=== PATIENT | male | born 1945 | race Caucasian/White ===

== ENCOUNTER 2018-01-06 23:41 | Emergency (ER) | payer OTHER ==
[2018-01-07 00:23] VITALS: BP 175/98; PULSE 78; TEMP 97.8; BMI 28.2
--- NOTE | 2018-01-07 01:47 | PDOC ---
History of Present Illness <Magdiel Mills - Last Filed: 01/07/18 02:05> - General History Source: Patient Exam Limitations: No Limitations - History of Present Illness Initial Comments: 01/07/18 01:46 Patient is a 72 year old male with h/o carotid stents, HLD, hypothyroid, hypertension, cataracts, corneal implant, prostatectomy, prostate cancer, here with complaint of head injury and laceration to right forehead since [facility]. Patient states was sleeping in his chair and fell out on his head. States initially a little pain to the area but has been progressively worsening now 5/ 10. Denies any loss of consciousness, nausea, vomiting. Patient is on aspirin 325 mg by mouth daily. No other injury. PMD: Dr. Maier PMHX: as above PSOCHX: neg etoh, durg, cig ALL: PCN GENERAL/CONSTITUTIONAL: [No fever or chills. No weakness. No weight change.] HEAD, EYES, EARS, NOSE AND THROAT: [No change in vision. No ear pain or discharge. No sore throat.] CARDIOVASCULAR: [No chest pain or shortness of breath.] RESPIRATORY: [No cough, wheezing, or hemoptysis.] GASTROINTESTINAL: [No nausea, vomiting, diarrhea or constipation. No rectal bleeding.] GENITOURINARY: [No dysuria, frequency, or change in urination.] MUSCULOSKELETAL: (+) joint or muscle swelling or pain. (+) neck or back pain.] SKIN AND BREASTS: [No rash or easy bruising.] NEUROLOGIC: [No headache, vertigo, loss of consciousness, or loss of sensation.] PSYCHIATRIC: (+) depression or anxiety.] ENDOCRINE: [No increased thirst. No abnormal weight change.] HEMATOLOGIC/LYMPHATIC: [No anemia, easy bleeding, or history of blood clots.] ALLERGIC/IMMUNOLOGIC: [No hives or skin allergy. No latex allergy.] GENERAL: [The patient is awake, alert, and fully oriented, mild distress.] HEAD: [Normal with no signs of trauma.] EYES: [Pupils equal, round and reactive to light, extraocular movements intact, sclera anicteric, conjunctiva clear.] ENT: [Ears normal, nares patent, oropharynx clear without exudates. Moist mucous membranes.] NECK: [Normal range of motion, supple without lymphadenopathy, JVD, or masses, nontender midline ] LUNGS: [Breath sounds equal, clear to auscultation bilaterally. No wheezes, and no crackles.] HEART: [Regular rate and rhythm, normal S1 and S2 without murmur, rub.] ABDOMEN: [Soft, nontender, normoactive bowel sounds. No guarding, no rebound. No masses.] EXTREMITIES: [Normal range of motion, no edema. No clubbing or cyanosis. No cords, erythema, or tenderness.] NEUROLOGICAL: [Cranial nerves II through XII grossly intact. Normal speech, normal gait.] PSYCH: [Normal mood, normal affect.] SKIN: (+) 3cm lacertion to the right forehead, mild swelling. Warm, Dry, normal turgor, no rashes or lesions noted.] <Orestes Chaudhry - Last Filed: 01/07/18 02:50> - General Chief Complaint: Laceration Stated Complaint: LACERATION Time Seen by Provider: 01/07/18 00:08 Past History <Magdiel Mills - Last Filed: 01/07/18 02:05> - Past Medical History COPD: No HTN: Yes Hypercholesterolemia: Yes Thyroid Disease: Yes (hypo) - Surgical History GI Surgery: Yes (cath) - Immunization History Immunization Up to Date: No - Suicide/Smoking/Psychosocial Hx Smoking History: Former smoker Have you smoked in the past 12 months: No Information on smoking cessation initiated: No <Orestes Chaudhry - Last Filed: 01/07/18 02:50> - Past Medical History Allergies/Adverse Reactions: Allergies Allergy/AdvReac Type Severity Reaction Status Date / Time Penicillins Allergy Verified 01/07/18 00:08 Home Medications: Ambulatory Orders Aspirin [ASA -] 325 mg PO DAILY 01/07/18 Atorvastatin Ca [Lipitor] 20 mg PO HS 01/07/18 Citalopram Hydrobromide [Citalopram HBr] 20 mg PO DAILY 01/07/18 Lactobacillus Acidophilus [Probiotic] 1 each PO DAILY 01/07/18 Levothyroxine [Synthroid -] 200 mcg PO DAILY 01/07/18 Nifedipine [Nifedipine ER] 30 mg PO ASDIR 01/07/18 *Physical Exam - Vital Signs Last Vital Signs Temp Pulse Resp BP Pulse Ox 97.8 F 78 20 175/98 96 01/07/18 00:11 01/07/18 00:11 01/07/18 00:11 01/07/18 00:11 01/07/18 00:11 <Magdiel Mills - Last Filed: 01/07/18 02:05> - Vital Signs Last Vital Signs Temp Pulse Resp BP Pulse Ox 97.8 F 78 20 175/98 96 01/07/18 00:11 01/07/18 00:11 01/07/18 00:11 01/07/18 00:11 01/07/18 00:11 <Orestes Chaudhry - Last Filed: 01/07/18 02:50> Procedures - Laceration/Wound Repair Left Upper Anterior Face Wound Length: to 2.5 cm Wound Explored: clean Wound's Depth, Shape: superficial, linear Irrigated w/ Saline: Yes Betadine Prep: Yes Anesthesia: 1% Lidocaine Wound Repaired With: Sutures Suture Size/Type: 6:0, proline Number of Sutures: 6 <Magdiel Mills - Last Filed: 01/07/18 02:05> ED Treatment Course - RADIOLOGY Radiology Studies Ordered: Category Date Time Status HEAD CT WITHOUT CONTRAST [CT] Stat CT Scan 01/07/18 00:09 Ordered <Orestes Chaudhry - Last Filed: 01/07/18 02:50> Medical Decision Making - Medical Decision Making atient is a 72 year old male with h/o carotid stents, HLD, hypothyroid, hypertension, cataracts, corneal implant, prostatectomy, prostate cancer, here with complaint of head injury and laceration to right forehead since [facility]. CT head and suture forehead Patient was sutured by Dr. Shah resident in the ED 01/07/18 02:37 Patient Full Name: RIO MCCANN Patient Accession No: [id number] Patient : [id number] Reason for Exam: head injury Referring Physician: Patient Name: RAMY PATE THIS IS A PRELIMINARY REPORT FROM [facility] DATE OF SERVICE: 2018-01-07 02:11:24 IMAGES: 174 EXAM: HEAD CT WITHOUT CONTRAST HISTORY: Head injury COMPARISON: None. FINDINGS: Involutional changes. No hemorrhage. No mass. No obvious infarct. Small right parieto-occipital calcifications are noted. May be due to old granulomatous infection or inflammation. THIS DOCUMENT HAS BEEN ELECTRONICALLY SIGNED Imtiaz Odonnell MD 01/07/2018 02:29 EST M.D. Please call Imaging Human Resources Operations Director [phone]) with questions. INTERPRETING RADIOLOGIST: Imtiaz Odonnell MD Electronically Signed: Jan 07, 2018 02:29AM EST 01/07/18 02:42 <Orestes Chaudhry - Last Filed: 01/07/18 02:50> *DC/Admit/Observation/Transfer <Magdiel Mills - Last Filed: 01/07/18 02:05> <Orestes Chaudhry - Last Filed: 01/07/18 02:50> Diagnosis at time of Disposition: Laceration Closed head injury Qualifiers: Encounter type: initial encounter Qualified Code(s): S09.90XA - Unspecified injury of head, initial encounter - Discharge Dispostion Disposition: HOME Condition at time of disposition: Stable - Referrals Referrals: Quintin Maier [Primary Care Provider] - - Patient Instructions Printed Discharge Instructions: DI for Laceration Repair, DI for Closed Head Injury Additional Instructions: Your Discharge Instructions: You must call primary care physician within 24 hours to arrange follow-up. Return to the Emergency Department with any new, persistent or worsening symptoms, for fever, chills, SOB, dizziness, nausea, vomiting, worsening headache or any other concerning changes that may occur.
[2018-01-07] MEDS ORDERED: TETANUS AND DIPHTHERIA TOXOID 0.5 ML DISP.SYRIN IM ONE (02:42)
== END 2018-01-07 03:00 | disposition home or self-care (01) ==
LOC: JER 23:41
PROC: 3E0234Z Introduction of Serum, Toxoid and Vaccine into Muscle, Percutaneous Approach (ICD-10-PCS; principal; 2018-01-06)
PROC: 0HQ1XZZ Repair Face Skin, External Approach (ICD-10-PCS; 2018-01-06)
DX: S01.81XA Laceration without foreign body of other part of head, initial encounter (principal); W07.XXXA Fall from chair, initial encounter; Y93.89 Activity, other specified; Y92.018 Other place in single-family (private) house as the place of occurrence of the external cause; Y99.8 Other external cause status; I10 Essential (primary) hypertension; E03.9 Hypothyroidism, unspecified; E78.00 Pure hypercholesterolemia, unspecified; Z85.46 Personal history of malignant neoplasm of prostate; Z90.79 Acquired absence of other genital organ(s); Z95.828 Presence of other vascular implants and grafts; Z96.89 Presence of other specified functional implants
CPT/HCPCS: 70450-TC; 99281-25

== ENCOUNTER 2020-07-27 11:44 | Inpatient (IN) | payer OTHER ==
[2020-07-27 11:49] VITALS: BMI 26.6
--- OUTSIDE RECORDS SUMMARY | 2020-07-27 12:03 | XMS ---
:1945 Author Organization [facility] Care Team Providers Name Role Phone PRECIOUS DUENAS MD Unavailable Unavailable AAKALU, MARIA LUISA Unavailable Unavailable AAKALU, MARIA LUISA Unavailable Unavailable AAKALU, MARIA LUISA Unavailable Unavailable AAKALU, MARIA LUISA Unavailable Unavailable AAKALU, MARIA LUISA Unavailable Unavailable Fredrick Marques MD Unavailable Unavailable Seliger, Edison Tyler Unavailable Unavailable Seliger, Tyler Unavailable Unavailable Seliger, Tyler Unavailable Unavailable Seliger, Ytler Unavailable Unavailable Seliger, Tyler Unavailable Unavailable Seliger, Tyler Unavailable Unavailable Seliger, Tyler Unavailable Unavailable Seliger, Tyler Unavailable Unavailable Seliger, Tyler Unavailable Unavailable Seliger, Tyler Unavailable Unavailable Seliger, Tyler Unavailable Unavailable Seliger, Tyler Unavailable Unavailable Seliger, Tyler Unavailable Unavailable Seliger, Tyler Unavailable Unavailable Seliger, Tyler Unavailable Unavailable Seliger, Tyler Unavailable Unavailable Seliger, Tyler Unavailable Unavailable Seliger, Tyler Unavailable Unavailable Seliger, Tyler Unavailable Unavailable JENNIFER LÓPEZO Unavailable Unavailable MD JACINTA Unavailable Unavailable Velazquez Unavailable Unavailable Velazquez Unavailable Unavailable Velazquez Unavailable Unavailable Velazquez Unavailable Unavailable Velazquez Unavailable Unavailable MD Jt Unavailable Unavailable MD Xiang Unavailable Unavailable [facility] Unavailable Unavailable Tomas Unavailable Unavailable Re-disclosure Warning The records that you are about to access may contain information from federally- assisted alcohol or drug abuse programs. If such information is present, then the following federally mandated warning applies: This information has been disclosed to you from records protected by federal confidentiality rules (42 CFR part 2). The federal rules prohibit you from making any further disclosure of this information unless further disclosure is expressly permitted by the written consent of the person to whom it pertains or as otherwise permitted by 42 CFR part 2. A general authorization for the release of medical or other information is NOT sufficient for this purpose. The Federal rules restrict any use of the information to criminally investigate or prosecute any alcohol or drug abuse patient.The records that you are about to access may contain highly sensitive health information, the redisclosure of which is protected by Article 27-F of the [facility] Public Health law. If you continue you may haveaccess to information: Regarding HIV / AIDS; Provided by facilities licensed or operated by the [facility] Office of Mental Health; or Provided by the [facility] Office for People With Developmental Disabilities. If such information is present, then the following [facility] mandated warning applies: This information has been disclosed to you from confidential records which are protected by state law. State law prohibits you from making any further disclosure of this information without the specific written consent of the person to whom it pertains, or as otherwise permitted by law. Any unauthorized further disclosure in violation of state law may result in a fine or long term sentence or both. A general authorization for the release of medical or other information is NOT sufficient authorization for further disclosure. Allergies and Adverse Reactions Type Description Substance Reaction Status Data Source(s ) Drug allergy Sulfamethoxazole Sulfamethoxazole PCC ([facility] /Trimethoprim /Trimethoprim Halfway) No Known No Known PCC ([facility] Allergies Allergies Halfway) To Be Determined To Be Determined PC C ([facility] Halfway) Miscellaneous ISOLATION ISOLATION [facility] Drug allergy No Known Drug No Known Drug [facility] Drug allergy Penicillins Penicillins swelling [facility] Miscellaneous Difficult to Difficult to UNKNOWN [facility] allergy [facility] Drug allergy Penicillins Penicillins [facility] on Encounters Encounter Providers Location Date Indications Data Source(s ) Inpatient Attender: Toni 04/22/2020 [facility] ([facility] 12:00:00 PM EDT Nursing H ome) - 07/18/2020 11:00:00 AM EDT Patient discharged. Outpatient 04/09/2020 11:31:[facility] 11[facility]08[facility] Attender: Edison 03/19/2020 05:33:00 PM TBI/VENT [facility] SeligerAdmitter: EDT - 04/22/2020 Edison 12:07:00 PM EDT SeligerReferrer: [facility] TBI/VENT Patient admitted. Inpatient Attender: Edison -03/19/2020 [facility] SeligerAdmitter: Edison 05:33:00 PM EDT Hospital [facility]Referrer[facility]ultant: PRECIOUS DUENAS MDConsultant: MARIA LUISA FORRESTLUConsultant: JAN WORKMAN MD Outpatient 03/16/2020 [facility] - Good 07:02:25 PM EDT [facility] Outpatient 03/16/2020 [facility] 12:25:00 PM EDT [facility] Outpatient 03/13/2020 [facility] 03:45:00 PM EDT [facility] Inpatient Admitter: Chiquita Velazquez 03/13/2020 Respiratory BS [facility] - Good 12:00:00 AM EDT [facility] 03/19/2020 [facility] 04:34:00 PM EDT Respiratory Failure Patient discharged. Inpatient Attender: Edison 03/11/2020 11:45:00 TBI/TRACH [facility] SeligerAdmitter: Edison AM EDT - 03/13/2020 [facility] 01:17:00 PM EDT TBI/TRACH Patient discharged. Inpatient Attender: Edison -03/11/2020 [facility] SeligerAdmitter: Edison 11:45:00 AM EDT [facility] SeligerConsultant: JAN WORKMAN MD P Attender: Fredrick Marques MD 01/29/2020 ZAHR[facility] Chun 02:00:00 PM EDT 3.14 [facility] DYSPHAGIA R13.14 Outpatient Attender: Fredrick 11/27/2019 07:51:00 IRON DEFIC IENCY Najma Waters MD AM EST ANEMIA prev Hospital 04/28/18 IRON DEFICIENCY ANEMIA prev 04/28/18 Outpatient Attender: Kwame Otoole MD 09/08/2019 10:14:00 AM F /U [facility] EST F/U Outpatient Attender: RENE 08/24/2019 06:00:00 I65.23 [facility] ROMEOAdmitter: RENE AM EDT [facility] ROMEOReferrer: RENEMadhu JACOBY I65.23 Outpatient Attender: Kwame 03/17/2019 09:38:00 * WET READ * Najma Otoole MD AM EDT [facility] * WET READ * [facility] Outpatient Attender: Fredrick 04/28/2018 07:30:00 F/U FROM [facility] [place] [facility] AM EDT NO PREV Hospital F/U FROM [facility] NO PREV Medications Medication Brand Start Product Dose Route Administrative Pharmacy [facility] Indications Reaction Description Data Name Date Form Instructions Instructions Source(s) pantoprazol 05/20/ 40 mg IntraV active 10 mL by Bon e 4 mg/mL 2019 ENous IntraVENous Se cours in 0.9% 12:00: route daily. Ch arity sodium 00 AM Health chloride EDT System Inc injection Amlodipine amLODI 05/20/ 10 mg Oral active Take 1 Tab Bon 10 MG Oral Toombs 2020 by mouth Secou rs Tablet (NORVA 12:00: daily. Juliana amLODIPine SC) 10 00 AM Health (NORVASC) mg EDT System Inc 10 mg tablet tablet Levothyroxi levoth 05/20/ 200 Per G active 1 Tab by Per Bon ne Sodium yroxin 2020 ug Tube G Tube route [facility] 0.2 MG Oral e 12:00: Daily Jihan ty Tablet (SYNTH 00 AM (before Health levothyroxi ROID) EDT breakfast). System Inc ne 200 (SYNTHROID) mcg 200 mcg tablet tablet cefTRIAXone 05/20/ 2 g IntraV active 2 g by Bon 2 gram 2 g 2020 ENous IntraVENous S ecours IVPB 12:00: route every Charit y 00 AM [facility] EDT (24) hours System In c for 4 days. cefTRIAXone 05/20/ 2 g IntraV aborted 2 g by Bon 2 gram 2 g 2020 ENous IntraVENous S ecours IVPB 12:00: route every Charit y 00 AM [facility] EDT (24) hours System In c for 11 days. Hydrocortis hydroc mg IntraV aborted 50 mg, Bon one 50 o 2019 ENous IntraVENous, Se cours MG/ML ne Sod 06:00: 2 TIMES Juliana Injectable Succ 00 PM DAILY, [facility] Solution (PF) EDT dose (after Syst em Inc hydrocortis (SOLU- last one Sod CORTEF modification Succ (PF) ) ) on Wed (SOLU-ANGI inject 03/19/20 at F) ion 50 1800, Until injection mg Discontinued 50 mg Medication administered onsite 0.4 ML enoxaparin 03/19/2020 40 SubCUTAneous active 0.4 mL by Peter Enoxaparin (LOVENOX) 40 12:00:00 AM mg SubCUTAneous [facility] sodium 100 mg/0.4 mL EDT route dodie ry Juliana MG/ML [facility] Prefilled (24) hours. Sys tem Syringe Inc enoxaparin (LOVENOX) 40 mg/0.4 mL Acetaminophe acetaminophe 03/19/2020 650 Oral active Take 20.3 mL Bon n 32 MG/ML n (TYLENOL) 12:00:00 AM mg by mouth [facility] Oral 32MG/ML soln EDT every four C harity Solution solution (4) hours as Health acetaminophe needed for S ystem n (TYLENOL) Fever or Inc 32MG/ML soln Pain. solution Alprazolam ALPRAZolam 03/19/2020 0.25 Oral active B Take 1 Tab by Peter 0.25 MG Oral (XANAX) 0.25 12:00:00 AM mg r mouth four [facility] Tablet mg tablet EDT u (4) times Esperanza rity ALPRAZolam i daily as Healt h (XANAX) 0.25 s needed for S ystem mg tablet e Anxiety. Max In c S Daily Amount: e 1 mg. p s i s , d u e t o u n s p e c i f i e d o r g a n i s m , u n s p e c i f i e d w h e t h e r a c u t e o r g a n d y s f u n c t i o n p r e s e n t ( H C C ) G r o s s h e m a t u r i a F o l e y c a t h e t e r p r o b l e m , i n i t i a l e n c o u n t e r ( H C C ) A c u t e o n c h r o n i c r e s p i r a t o r y f a i l u r e w i t h h y p o x i a ( H C C ) S e p t i c s h o c k ( H C C ) A t r i s k f o r s e p s i s F e v e r , u n s p e c i f i e d f e v e r c a u s e Bruise Sepsis, due to unspecified organism, uns pecified whether acute organ dysfunction present (HCC) Gross hematuria Kelly catheter problem, initial encounte r (HCC) Acute on chronic respiratory failure wit h hypoxia (HCC) Septic shock (HCC) At risk for sepsis Fever, unspecified fever cause doxycycline 100 03/19/2020 100 IntraVENous active 100 mg by Bon mg 100 mg 12:00:00 AM mg IntraVEN ous [facility] EDT route every [facility] twelve (12) Health hours for 4 System days. Inc doxycycline 100 03/19/2020 100 IntraVENous aborted 100 mg by Bon mg 100 mg 12:00:00 AM mg IntraVEN ous [facility] EDT route every [facility] twelve (12) Health hours for 11 System days. Inc ondansetron 79364- 03/19/2020 4 mg IntraVENous active 2 mL by Bon (ZOFRAN) 4 mg/2 181-01 12:00:00 AM IntraVENous [facility] mL soln EDT route every [facility] ty six (6) Health hours as System needed for Inc Nausea. Hydrocortisone hydroc 03/19/2020 50 IntraVENous active 1 mL by Bon 50 MG/ML ortiso 12:00:00 AM mg IntraVE Nous [facility] Injectable ne Sod EDT route two Ch arity Solution Succ, (2) times a Hea lth hydrocortisone PF, day for 3 System Sod Succ, PF, (SOLU- days. Inc (SOLU-CORTEF) CORTEF 100 mg/2 mL ) 100 solr injection mg/2 mL solr inject ion tramadol traMAD 03/19/2020 50 Oral active Bruis Take 1 Tab Bon hydrochloride oL 12:00:00 AM mg eSeps by mouth [facility] 50 MG Oral (ULTRA EDT is, every six Ch arity Tablet traMADoL M) 50 due (6) hour s as Health (ULTRAM) 50 mg mg to needed for System tablet tablet unspe Pain for up Inc cifie to 3 days. d Max Daily organ Amount: 200 ism, mg. unspe cifie d wheth er acute organ dysfu nctio n prese nt (HCC) Gross hemat uriaF oley rosalind ter probl em, initi al encou nter (HCC) Acute on chron ic respi rator y failu re with hypox ia (HCC) Septi c shock (HCC) At risk for sepsi sFeve r, unspe cifie d fever cause Bruise Sepsis, due to unspecified organism, uns pecified whether acute organ dysfunction present (HCC) Gross hematuria Kelly catheter problem, initial encounte r (HCC) Acute on chronic respiratory failure wit h hypoxia (HCC) Septic shock (HCC) At risk for sepsis Fever, unspecified fever cause doxycycline 03/18/2020 100 IntraVENous aborted 100 mg, Bon (VIBRAMYCIN) 09:00:00 PM mg Intra VENous, [facility] 100 mg in 0.9% EDT EVERY 12 C harity sodium HOURS, [facility] chloride dose on Wed em (MBP/ADV) 100 03/18/20 at [facility] mL MBP 2100, Until Discontinued, at 100 mL/hr Medication administered onsite sodium 9951-5249-62 03/18/2020 500 IntraVENous completed 500 mL, at Bon chloride 07:00:00 PM mL 2,000 mL/ hr, [facility] 0.9 % EDT Administer Juliana bolus over 15 Health infusion Minutes, System 500 mL IntraVENous, Inc 1 dose Medication administered onsite Hydrocortisone hydrocortisone 03/18/2020 100 IntraVENous ab orted 100 mg, Bon 50 MG/ML Sod Succ (PF) 07:00:00 PM mg IntraVENous, [facility] Injectable (SOLU-CORTEF) EDT 2 PRETTY ES Juliana Solution injection 100 DAILY, [facility] hydrocortisone mg dose on n System Sod Succ (PF) 03/18/20 at [facility] (SOLU-CORTEF) 1900, Until injection 100 Discontinue d mg Medication administered onsite 1 ML morphine 03/18/2020 1 IntraVENous completed severe 1 mg, Bon Morphine injection 03:00:00 PM mg pain Intr aVENous, [facility] Sulfate 2 1 mg EDT ONCE, 1 dose, C harity MG/ML 03/18/20 Health Prefilled at 1500 System Syringe Inc morphine injection 1 mg severe pain Medication administered onsite vits A and 29734-386-57 03/18/2020 Topical aborted Topical, Bon D-white 02:29:41 PM NEEDED, Se cours pet-lanolin EDT Starting Mon Juliana (A&D) 03/18/20 at Health ointment 1429, Until Syst em Wed03/19/20 Inc at 2034, Skin Irritation, Dry Skin Medication administered onsite tramadol traMADoL 03/17/2020 50 Oral aborted 50 mg, Bon hydrochloride 50 (ULTRAM) 07:47:19 PM mg Oral, [facility] MG Oral Tablet tablet 50 EDT EVERY 6 Juliana traMADoL mg HOURS Health (ULTRAM) tablet NEEDED, S ystem 50 mg Starting Inc 03/17/20 at 1947, Until Wed03/19/20 at 2034, Moderate Pain Medication administered onsite 1 ML LORazepam 03/17/2020 1 IntraVENous completed preoper ative 1 mg, Bon Lorazepam (ATIVAN) 12:00:00 PM mg anxiety I ntraVENous, [facility] 2 MG/ML injection EDT ONCE, 1 dose , Juliana Injection 1 mg 03/17/20 [facility] LORazepam at 1200 System (ATIVAN) Inc injection 1 mg preoperative anxiety Medication administered onsite Amlodipine amLODIPine 03/17/2020 10 Oral aborted 10 mg, Oral, Bon 10 MG [facility] 12:00:00 PM mg DA WAQAR, First [facility] Tablet tablet 10 mg EDT dose on Woods n Juliana amLODIPine 03/17/20 at [facility] (NORVAS) 1200, Until Sys tem tablet 10 mg Discontinued Inc Medication administered onsite Hydralazine hydrALAZINE 03/17/2020 10 IntraVENous complete d 10 mg, Bon Hydrochloride (APRESOLINE) 11:00:00 AM mg IntraVENous, [facility] 20 MG/ML 20 mg/mL EDT ONCE, 1 dose , Juliana Injectable injection 10 [facility] Solution mg at 1100 System hydrALAZINE Inc (APRESOLINE) 20 mg/mL injection 10 mg Medication administered onsite Alprazolam ALPRAZolam 03/17/2020 0.25 Oral aborted 0.25 mg, Bon 0.25 MG Oral (XANAX) 10:49:12 AM mg Or al, 4 [facility] Tablet tablet 0.25 EDT TIMES Jihan ty ALPRAZolam mg DAILY Healt h (XANAX) NEEDED, System tablet 0.25 Starting Inc mg 03/17/20 at 1049, Until Tu03/19/20 at 2035, Anxiety Medication administered onsite Hydralazine hydrALAZINE 03/17/2020 10 IntraVENous complete d 10 mg, Bon Hydrochloride (APRESOLINE) 03:00:00 AM mg IntraVENous, [facility] 20 MG/ML 20 mg/mL EDT ONCE, 1 dose , Juliaan Injectable injection 10 [facility] Solution mg at 0300 System hydrALAZINE Inc (APRESOLINE) 20 mg/mL injection 10 mg Medication administered onsite Hydrocortisone hydrocortisone 03/16/2020 25 IntraVENous ab orted 25 mg, Bon 50 MG/ML Sod Succ (PF) 09:00:00 PM mg IntraVENous, [facility] Injectable (SOLU-CORTEF) EDT EVERY 12 Juliana Solution injection 25 mg HOURS , [facility] hydrocortisone dose (afte r System Sod Succ (PF) last Inc (SOLU-CORTEF) modificatio n) injection 25 mg on Sat at 2100, Until Discontinued Medication administered onsite potassium 5449-3214-77 03/16/2020 40 Oral completed 40 mEq, Bon chloride 04:00:00 PM meq Oral, 2 S ecours (KLOR-CON) EDT TIMES Juliana packet for DAILY, 4 Healt h solution 40 doses, System mEq First Inc dose on 03/16/20 at 1600, Last dose on 03/18/20 at 0900 Medication administered onsite Hydralazine hydrALAZINE 03/16/2020 10 IntraVENous complete d 10 mg, Bon Hydrochloride (APRESOLINE) 04:00:00 AM mg IntraVENous, [facility] 20 MG/ML 20 mg/mL EDT ONCE, 1 dose , Juliana Injectable injection 10 Sat Health Solution mg at 0400 System hydrALAZINE Inc (APRESOLINE) 20 mg/mL injection 10 mg Medication administered onsite Hydrocortisone hydrocortisone 03/15/2020 50 IntraVENous ab orted 50 mg, Bon 50 MG/ML Sod Succ (PF) 09:00:00 PM mg IntraVENous, [facility] Injectable (SOLU-CORTEF) EDT EVERY 8 HOURS, Juliana Solution injection 50 mg First dose Health hydrocortisone (after las t System Sod Succ (PF) modificatio n) Inc (SOLU-CORTEF) on 03/15 injection 50 mg at 2100, Until Discontinued Medication administered onsite cefTRIAXone 03/15/2020 2 g IntraVENous aborted 2 g, Bon (ROCEPHIN) 2 g 12:00:00 PM Int raVENous, [facility] in 0.9% sodium EDT EVERY 24 H OURS, Juliana chloride First dose on He alth (MBP/ADV) 50 Wed03/15/20 at System mL MBP 1200, Until Inc Discontinued, at 100 mL/hr Medication administered onsite 1 ML LORazepam 03/15/2020 1 IntraVENous completed 1 mg, Bon Lorazepam 2 (ATIVAN) 06:00:00 AM mg In traVENous, [facility] MG/ML injection 1 EDT ONCE, 1 dose , Juliana Injection mg Wed03/15/20 Hea lth LORazepam at 0600 System (ATIVAN) Inc injection 1 mg Medication administered onsite Hydrocortisone hydrocortisone 03/14/2020 100 IntraVENous ab orted 100 mg, Bon 50 MG/ML Sod Succ (PF) 03:00:00 PM mg IntraVENous, [facility] Injectable (SOLU-CORTEF) EDT EVERY 8 Juliana Solution injection 100 HOURS, [facility] hydrocortisone mg dose on u System Sod Succ (PF) 03/14/20 at Inc (SOLU-CORTEF) 1500, Until injection 100 Discontinue d mg Medication administered onsite Alprazolam ALPRAZolam 03/14/2020 0.25 Oral completed 0.25 mg, Bon 0.25 MG Oral (XANAX) 02:50:33 PM mg Or al, [facility] Tablet tablet 0.25 EDT BEDTIME Esperanza rity ALPRAZolam mg PRN, Health (XANAX) Starting System tablet 0.25 Bel Inc mg 03/14/20 at 1450, Until Bel 03/14/20 at 2249, Anxiety Medication administered onsite midodrine midodrine 03/14/2020 10 Oral aborted 1 0 mg, Oral, Bon hydrochloride 5 (PROAMATINE) 12:00:00 PM mg 3 TIMES DAILY [facility] MG Oral Tablet tablet 10 mg EDT WI TH MEALS, Juliana midodrine First dose on H ealth (PROAMATINE) Bel 03/14/20 System tablet 10 mg at 1200, Inc Until Discontinued Medication administered onsite tobramycin 03/14/2020 400 IntraVENous completed 400 mg, Bon (NEBCIN) 400 12:00:00 PM mg Intra VENous, [facility] mg in 0.9% EDT ONCE, 1 dose, Juliana sodium Bel 03/14/20 at [facility] chloride 100 1200, at 200 System mL IVPB mL/hr Inc Medication administered onsite Levothyroxine levothyroxine 03/14/2020 200 Per G aborted 200 mcg, Per Bon Sodium 0.1 MG (SYNTHROID) 11:00:00 AM ug Tube G Tube, DAILY [facility] Oral Tablet tablet 200 mcg EDT BEF ORE Juliana levothyroxine BREAKFAST, Health (SYNTHROID) First dose on System tablet 200 mcg Bel 0 Inc at 1100, Until Discontinued Medication administered onsite hydrocortisone 03/14/2020 100 IntraVENous aborted 100 mg, Bon sod succ (PF) 10:00:00 AM mg Intr aVENous, [facility] (SOLU-CORTEF) EDT EVERY 8 NASIMA RS, Juliana 100 mg in 0.9% First dose on Health sodium chloride [facility] at System 50 mL IVPB 1000, Until In c Discontinued, at 100 mL/hr Medication administered onsite pantoprazole 03/14/2020 40 IntraVENous aborted 40 mg, Bon (PROTONIX) 40 09:00:00 AM mg Intr aVENous, Sec[facility] mg in 0.9% EDT DAILY, First C harity sodium dose on [facility] Health chloride 10 mL 03/14/20 at System injection 0900, Until Inc Discontinued Medication administered onsite 1 ML LORazepam 03/14/2020 1 IntraVENous completed 1 mg, Bon Lorazepam 2 (ATIVAN) 05:00:00 AM mg In traVENous, [facility] MG/ML injection 1 EDT ONCE, 1 dose , Juliana Injection mg [facility]500 System (ATIVAN) Inc injection 1 mg Medication administered onsite Alprazolam ALPRAZolam 03/14/2020 0.25 Oral completed 0.25 mg, Bon 0.25 MG Oral (XANAX) 04:00:00 AM mg Or al, [facility] Tablet tablet 0.25 EDT ONCE, 1 Esperanza rity ALPRAZolam mg dose, Bel Heal th (XANAX) 03/14/20 System tablet 0.25 at 0400 Inc mg Medication administered onsite Acetaminophen acetaminophen 03/14/2020 650 Per G aborted 650 mg, Bon 32 MG/ML Oral (TYLENOL) 03:01:56 AM mg Tube Per G [facility] Solution solution 650 mg EDT Tube, Juliana acetaminophen EVERY 4 Hea lth (TYLENOL) HOURS System solution 650 mg NEEDED, I nc Starting Bel 03/14/20 at 0301, Until Wed03/19/20 at 2035, Fever, Mild Pain Medication administered onsite vancomycin 03/13/2020 1250 IntraVENous aborted 1,250 mg, Bon (VANCOCIN) 11:00:00 PM mg IntraVE Nous, [facility] 1,250 mg in EDT EVERY 12 HOUR S, Juliana 0.9% sodium First dose on [facility] chloride 250 03/13/20 at System mL IVPB 2300, Until [facility] Discontinued, at 125 mL/hr Medication administered onsite 0.4 ML enoxaparin 03/13/2020 40 SubCUTAneous aborted 40 mg, Bon Enoxaparin (LOVENOX) 09:00:00 PM mg Woods bCUTAneous, [facility] sodium 100 injection EDT EVERY 24 Juliana MG/ML 40 mg HOURS, First Healt h Prefilled dose on Wed Sys tem Syringe 03/13/20 at [facility] enoxaparin 2100, Until (LOVENOX) Discontinued injection 40 mg Medication administered onsite piperacillin-tazobactam 03/13/2020 3.375 IntraVENous ab orted 3.375 g, Bon (ZOSYN) 3.375 g in 0.9% 07:00:00 PM g IntraVENous, [facility] sodium chloride EDT EVERY 8 H OURS, Juliana (MBP/ADV) 100 mL MBP Firs t dose on [facility] 03/13/20 at Syste m 1900, Until [facility] Discontinued, at 25 mL/hr Medication administered onsite ondansetron 63087-471-79 03/13/2020 4 IntraVENous aborted 4 mg, Bon (ZOFRAN) 01:31:49 PM mg IntraVENo us, [facility] injection 4 EDT EVERY 6 HOURS Juliana mg NEEDED, Health Starting [facility] System 03/13/20 at Inc 1331, Until Wed03/19/20 at 2034, Nausea or Vomiting Medication administered onsite sodium [id number] 03/13/2020 mL IntraVENous aborted 5-10 mL, Bon chloride 01:24:19 PM IntraVENo us, Secours (NS) flush EDT NEEDED, Esperanza rity 5-10 mL Starting Wed03/13/20 at System 1324, Until Wed03/19/20 at 2034, Line Patency Medication administered onsite NOREPINephrine [id number] 03/13/2020 ug/min IntraVENous aborted 0.5-30 mcg/min Bon (LEVOPHED) 8 mg 12:45:00 PM (0 .9375-56.25 Sec[facility] in 5% dextrose EDT mL/hr, rou nded Juliana 250mL (32 to 0.9-56.3 Hea lth mcg/mL) mL/hr), at System infusion 0.9-56.3 Inc mL/hr, IntraVENous, TITRATE, Starting Wed03/13/20 at 1246, Until Wed03/15/20 at 1605 Medication administered onsite 0.9% [id number] 03/13/2020 30 IntraVENous completed 3,402 mL (30 Bon sodium 12:27:00 PM mL/kg m L/kg [facility] chloride EDT Juliana infusion 113.4 kg), Heal h 3,402 mL IntraVENous, Sys tem ONCE, 1 dose, [facility] 03/13/20 at 1227 Medication administered onsite vancomycin 03/13/2020 1000 IntraVENous completed 1,000 mg, Bon (VANCOCIN) 11:22:00 AM mg IntraVE Nous, Secours 1,000 mg in EDT NOW, 1 dose, Juliana 0.9% sodium [facility] 03/13/20 H ealth chloride at 1122, at Syst em (MBP/ADV) 125 mL/hr Inc 250 mL adv Medication administered onsite Acetaminophen acetaminophen 03/13/2020 975 Per G completed 975 mg, Bon 325 MG Oral (TYLENOL) 11:17:00 AM mg Tube P er G [facility] Tablet tablet 975 mg EDT Tube, Esperanza rity acetaminophen NOW, 1 (TYLENOL) dose, System tablet 975 mg Wed [facility] 03/13/20 at 1117 Medication administered onsite sodium 5983-2260-62 03/13/2020 1000 IntraVENous completed 1,000 mL, at Bon chloride 11:17:00 AM mL 1,000 mL/ hr, Secours 0.9 % EDT Administer Juliana bolus over 60 Health infusion Minutes, System 1,000 mL IntraVENous, Inc 1 dose Medication administered onsite piperacillin-tazobactam 03/13/2020 4.5 IntraVENous com pleted 4.5 g, Bon (ZOSYN) 4.5 g in 0.9% 10:32:00 AM g IntraVENous, [facility] sodium chloride EDT NOW, 1 do se, Juliana (MBP/ADV) 100 mL MBP 03/13/20 Health at 1032, at System 200 mL/hr Inc Medication administered onsite 0.9% 1174-6199-00 03/13/2020 50 IntraVENous aborted 50 mL/hr, at Bon sodium 10:32:00 AM mL/h 50 mL/hr, S [facility] chloride EDT IntraVENous, Esperanza rity infusion CONTINUOUS, Heal th Starting Wed System 03/13/20 at Inc 1032, Until 03/17/20 at 1052 Medication administered onsite Docusate Docusate 04/02/2018 CAPSULE 100 mg completed Three White Sodium 100 MG Sodium 12:00:00 AM Ti mes A [facility] Oral Capsule (Colace*) EDT spital Docusate 100 Mg Cap Sodium (Colace*) 100 Mg Cap POLYETHYLENE Polyethylene 04/02/2018 POWDER 17 g completed Daily White GLYCOL 3350 Glycol 12:00:00 AM [place] 142 MG/ML (Miralax EDT Hospit al Oral Solution Packet*) 17 [HealthyLax] Gram Powd Polyethylene Glycol (Miralax Packet*) 17 Gram Powd Prednisone 11/29/2017 TABLET 10 mg completed Daily White (Prednisone 12:00:00 AM P lains Tablet*) 10 EST Hospital Mg Tab, 10 Mg Oral Levofloxacin Levofloxacin 11/06/2017 TABLET 250 mg completed Daily White 250 MG Oral (Levaquin 12:00:00 AM [place] Tablet Tablet*) 250 EST Hospi manju [Levaquin] Mg Tab, 250 Levofloxacin Mg Oral (Levaquin Tablet*) 250 Mg Tab, 250 Mg Oral Acetaminophen Oxycodone 10/01/2017 TABLET completed Every 4 White 325 MG / Hcl/Acetamin 12:00:00 AM H ours as [place] Oxycodone ophen EST needed Hospita l Hydrochloride (Oxycodone-A for Pain 5 MG Oral cetaminophen Tablet 5-325) 5 Oxycodone Mg-325 Mg Hcl/Acetamino Tablet, 1-2 phen Tab Oral (Oxycodone-Ac etaminophen 5-325) 5 Mg-325 Mg Tablet, 1-2 Tab Oral Docusate Docusate 10/01/2017 CAPSULE 100 mg completed Three White Sodium 100 MG Sodium (Dok) 12:00:00 AM Times A [place] Oral Capsule 100 Mg EST Day Hospi manju [DOK] Capsule, 100 Docusate Mg Oral Sodium (Dok) 100 Mg Capsule, 100 Mg Oral sennosides, sennosides 17.2 PEG active 17.2 mg Bon FDC 17.2 MG 17.2 mg tab mg Tub by PEG [facility] Oral Tablet e Tube Juliana sennosides route Health 17.2 mg tab daily. System Inc Levothyroxine levothyroxin 200 ug Ora aborted Take 200 Bon Sodium 0.2 MG e l mcg by Sec[facility] Oral Tablet (SYNTHROID) mouth Juliana levothyroxine 200 mcg Daily He alth (SYNTHROID) tablet (before Sys tem 200 mcg [employer] Inc tablet t). Melatonin 5 melatonin 5 9 mg Ora active Take 9 Bon MG Oral mg cap l mg by [facility] Capsule capsule mouth Juliana melatonin 5 nightly. Heal th mg cap System capsule Inc Ascorbic Acid ascorbic 500 mg Per active 500 mg Bon 500 MG Oral acid, G by Per G [facility] Tablet vitamin C, Tub Tube Juliana ascorbic (VITAMIN C) e route Hea lth acid, vitamin 500 mg daily. Sy stem C, (VITAMIN tablet Inc C) 500 mg tablet Docusate docusate 200 mg Per active 200 mg B on Sodium 100 MG sodium G by Per G [facility] Oral Capsule (Colace) 100 Tub Tube Juliana docusate mg capsule e route Heal th sodium daily. System (Colace) 100 Inc mg capsule chlorhexidine chlorhexidin 15 mL Swi active 15 mL by Bon gluconate 1.2 e (PERIDEX) sh Swis h [facility] MG/ML 0.12 % and and Spit Juliana Mouthwash solution Spi route Healt h chlorhexidine t daily. Syst em (PERIDEX) Inc 0.12 % solution Losartan losartan 150 mg Per active 150 mg B on Potassium 100 (COZAAR) 100 G by Per G [facility] MG Oral mg tablet Tub Tube Juliana Tablet e route Health losartan daily. System (COZAAR) 100 Inc mg tablet Doxazosin 1 doxazosin 1 mg Per active 1 mg b y Bon MG Oral (CARDURA) 1 G Per G Sec[facility] urs Tablet mg tablet Tub Tube Juliana doxazosin e route Health (CARDURA) 1 nightly. Syst em mg tablet Inc Nifedipine TABLET, 30 mg completed Daily White (Nifedipine EXTENDED Plai ns Xl) 30 Mg RELEASE Hospita l Tab.er.24 Losartan Losartan TABLET 100 mg completed Sheyla ly White Potassium 100 Potassium P lains MG Oral (Cozaar*) Hospita l Tablet 100 Mg [Cozaar] Tablet, 100 Losartan Mg Oral Potassium (Cozaar*) 100 Mg Tablet, 100 Mg Oral Citalopram 20 Citalopram TABLET 20 mg completed Daily White MG Oral Hydrobromide Plai ns Tablet (Citalopram Hospit al Citalopram Hbr) 20 Mg Hydrobromide Tablet (Citalopram Hbr) 20 Mg Tablet Multivitamins TABLET 1 completed Mari y White (Tab-A-Anais {Capsu [facility] Tab*) 1 Each le} Hospita l Tablet gabapentin gabapentin 100 mg Per active 100 mg Bon 100 MG Oral (NEURONTIN) G by Per G [facility] Capsule 100 mg Tub Tube Juliana gabapentin capsule e route Healt h (NEURONTIN) three System 100 mg (3) Inc capsule times daily. Atorvastatin TABLET 40 mg completed Mari y White Calcium [facility] (Lipitor*) 40 Hospit al Mg Tab Famotidine 20 famotidine 20 mg Per active 20 mg by Bon MG Oral (PEPCID) 20 G Per G Sec[facility] Tablet mg tablet Tub Tube Juliana famotidine e route Health (PEPCID) 20 two (2) Syste m mg tablet times a Inc day. Hctz/Losartan TABLET 1 completed Mari y White Potassium {Capsu [facility] (Hyzaar le} Hospital 100-25 Tablet*) 1 Tab Tablet, 1 Tab Oral ferrous Ferrous TABLET 325 mg completed Daily White sulfate 325 Sulfate Plain s MG Delayed (Iron Hospital Release Oral Supplement*) Tablet 325 Mg (65 Ferrous Mg Iron) Sulfate (Iron Tablet Supplement*) 325 Mg (65 Mg Iron) Tablet Losartan Losartan TABLET 50 mg completed Mari y White Potassium [address]ins MG Oral (Cozaar*) 50 Hosp ital Tablet Mg Tab, 50 [Cozaar] Mg Oral Losartan Potassium (Cozaar*) 50 Mg Tab, 50 Mg Oral potassium potassium 20 meq Ora active Take 2 0 Bon bicarbonate bicarb-citri l mEq b y [facility] 20 MEQ c acid mouth Juliana Effervescent (EFFER-K) 20 two (2) Health Oral Tablet mEq tablet times a System potassium day. Inc bicarb-citric acid (EFFER-K) 20 mEq tablet Aspirin TABLET 325 mg completed Daily Wh ite Buffered [place] (Aspirin Hospital Buffered Tablet*) 325 Mg Tablet FLUTICASONE 1 Mitch active 1 [place] Bon PROPIONATE IN {spray al by Nasal [facility] } route Juliana two (2) Health times a System day. Inc Multivitamins TABLET 1 completed Mari y White (Hexavitamin {Capsu Plain s Tablet*) 1 le} Hospital Each Tablet, 1 Tab Oral Vitamin E CAPSULE 400 completed Daily W tabitha (Vitamin E [facility] 400 Units Hospital Cap*) 400 Unit Cap, 400 Unit Oral Atenolol TABLET 25 mg completed Daily Wh ite (Tenormin*) [facility] 25 Mg Tab, 25 Hospit al Mg Oral Acetaminophen acetaminophe 650 mg Per aborted 650 mg Bon 325 MG Oral n (TYLENOL) G by Per G [facility] Tablet 325 mg Tub Tube Juliana acetaminophen tablet e route Hea lth (TYLENOL) 325 every Syste m mg tablet four (4) Inc hours as needed for Pain. tramadol traMADoL 50 mg Per aborted 50 mg by Bon hydrochloride (ULTRAM) 50 G Per G [facility] 50 MG Oral mg tablet Tub Tube Sherin ity Tablet e route Health traMADoL every System (ULTRAM) 50 six (6) Inc mg tablet hours as needed for Pain. Alprazolam ALPRAZolam 0.25 Per aborted 0.25 mg Bon 0.25 MG Oral (XANAX) 0.25 mg G by P er G [facility] Tablet mg tablet Tub Tube Juliana ALPRAZolam e route Health (XANAX) 0.25 every System mg tablet eight Inc (8) hours as needed for Anxiety. Escitalopram escitalopram 10 mg Per active 1 0 mg by Bon 10 MG Oral oxalate G Per G [facility] Tablet (LEXAPRO) 10 Tub Tube Jihan ty escitalopram mg tablet e route H ealth oxalate daily. System (LEXAPRO) 10 Inc mg tablet Ascorbic Acid TABLET 500 mg completed Da waqar White (Vitamin C [facility] 500MG Hospital Tablet*) 500 Mg Tab, 500 Mg Oral Hydrochloroth Hydrochlorot CAPSULE 12.5 completed Daily White iazide 12.5 hiazide mg Plain s MG Oral (Microzide Hospit al Capsule 12.5MG Cap*) Hydrochloroth 12.5 Mg iazide Capsule, (Microzide 12.5 Mg Oral 12.5MG Cap*) 12.5 Mg Capsule, 12.5 Mg Oral Levothyroxine Levothyroxin TABLET 275 ug completed Daily At White Sodium 0.1 MG [address] Sodium [address] Pl ains Oral Tablet (Synthroid Ho spital [Synthroid] Tablet*) 100 Levothyroxine Mcg Tab, 275 Sodium Mcg Oral (Synthroid Tablet*) 100 Mcg Tab, 275 Mcg Oral DOCUSATE 5 mL Rec active Insert 5 Bon SODIUM-BENZOC manju mL into Sec ours CANDY RE rectum. Juliana Every 2 Health days System [employer] multivitamin [address]-8 1 Per active 1 Tab by Bon (ONE A DAY) 4 {tbl} G Per G Sec[facility] tablet Tub Tube Juliana e [facility] Health daily. System Inc Multivitamins CAPSULE 1 completed Sheyla ly White 1 Each {Each} [facility] Capsule [facility] SENNA 528 mg PEG active 528 mg Bon Tub by PEG [facility] e Tube Juliana route. [employer] System Inc Selenomethion TABLET 200 ug completed Da waqar White ine [place] (Selenium) [facility] 200 Mcg Tablet, 200 Mcg Oral Ergocalcifero ergocalcifer 15665 Ora active Take [place] l [address] UNT ol (Vitamin U l 50,000 [facility] Oral Capsule D2) 1,250 Units b y [facility] ergocalcifero mcg (50,000 mout h. Health l (Vitamin unit) System D2) 1,250 mcg capsule Inc (50,000 unit) capsule Nystatin nystatin Top active Apply Bon 593686 UNT/ML (MYCOSTATIN) ica to [facility] Topical Cream topical l affected [facility] nystatin cream [facility] (MYCOSTATIN) three System topical cream (3) Inc times daily. POLYETHYLENE polyethylene 17 g Ora active Ta ke 17 Bon GLYCOL 3350 glycol l g by [facility] s 142 MG/ML (MIRALAX) 17 mouth C harity Oral Solution gram packet [employer] polyethylene System glycol Inc (MIRALAX) 17 gram packet Aspirin ENTERIC 81 mg completed Daily Wh ite (Aspirin COATED [facility] Enteric TABLET Hospital Coated*) 81 Mg Tabec, 81 Mg Oral Levothyroxine Levothyroxin TABLET 200 ug completed Daily At White Sodium 0.[address] ains Oral Tablet (Synthroid Ho spital [Synthroid] Tablet*) 200 Levothyroxine Mcg Tab Sodium (Synthroid Tablet*) 200 Mcg Tab Amlodipine 10 amLODIPine 10 mg Per aborted 1 0 mg by Bon MG Oral (NORVASC) 10 G Per G Sec ours Tablet mg tablet Tub Tube Juliana amLODIPine e route Health (NORVASC) 10 daily. Syste m mg tablet Inc Probiotic 1 completed Daily Whit {[facility]} [facility] 0.4 ML enoxaparin 40 mg Sub aborted 40 mg by Bon Enoxaparin (Lovenox) 40 CUT SubCUT An [facility] sodium 100 mg/0.4 mL Ane eous Sherin ity MG/ML ous route Health Prefilled daily. System Syringe Inc enoxaparin (Lovenox) 40 mg/0.4 mL Bisacodyl 5 bisacodyL 5 10 mg Rec active Ins ert Bon MG Delayed mg tab manju 10 mg Sec[facility] s Release Oral into Juliana Tablet rectum Health bisacodyL 5 nightly. Syst em mg tab Inc Aspirin 325 aspirin 325 mg PEG active 325 mg Bon MG Oral (ASPIRIN) Tub by PEG Secou rs Tablet 325 mg e Tube Juliana aspirin tablet route Health (ASPIRIN) 325 daily. Syst em mg tablet Inc atorvastatin atorvastatin 40 mg Per active 4 0 mg by Bon 40 MG Oral (LIPITOR) 40 G Per G [facility] Tablet mg tablet Tub Tube Juliana atorvastatin e route Health (LIPITOR) 40 daily. Syste m mg tablet Inc ALBUTEROL IN 2 Inh active Take 2 Bon {puff} ala Puffs by [facility] laura inhalati Juliana n on four Health (4) System times Inc daily. Insurance Providers Payer name Policy type / Policy ID Covered Covered green party's Policy Plan Coverage type green party ID relationship to Batres Information batres MEDICARE [id number] SP [id number] [facility] [id number] CABRINI OF [id number] [facility] MEDICARE [id number] SP [id number] A POMCO [id number] PT [id number] MEDICARE [id number] PT [id number] A BLUE CROSS [id number] PT [id number] OTHER [facility] THE [id number] EMPIRE PLAN [facility] EMPIRE [id number] YL [id number] [place] [id number] PART A AND B [place] [facility] [id number] PPO OTHER Medicare MDA [id number] None [id number] [id number] [facility] THE [id number] EMPIRE PLAN [facility] EMPIRE [id number] YL [id number] [place] [id number] PART A AND B BLUE CROSS [id number] EMPIRE PLAN UMR [id number] SP [id number] MEDICARE [id number] SP [id number] [facility] [place] PPO [id number] HEALTHCARE BLUE CROSS PPO [id number] [place] Commerical [id number] [place] Medicare [id number] GENERIC [id number] COMMERCIAL MEDICARE [id number] PT [id number] BLUE CROSS [id number] PT [id number] OTHER MEDICARE [id number] PT [id number] M45 [employer]MR[employer]POMCO [id number] PT [id number] BLUE CROSS IND [id number] PT [id number] [employer] [id number] PT [id number] MEDICARE [id number] PT [id number] A Problems, Conditions, and Diagnoses Code Display Name Description Problem Effective Data Type Dates Source(s) T14.8XXA Bruise Bruise [id number] 03/18/2020 [facility] 12:00:00 AM [facility] A41.9 Septic shock Septic shock [id number] 03/13/2020 [place] 12:[place]:00 AM [facility] N39.0 Urinary tract URINARY TRACT Diagnosis 06/25/2020 [facility] ([facility] infection, site INFECTION, SITE 12:00:00 AM [facility] not specified NOT SPECIFIED EDT [place]) J96.90 Respiratory RESPIRATORY Diagnosis 04/22/2020 [facility] (St. failure, FAILURE, 12:00:00 AM [facility] unspecified, UNSPECIFIED, EDT Nursing Ho me) unspecified UNSPECIFIED whether with WHETHER WITH hypoxia or HYPOXIA OR hypercapnia HYPERCAPNIA Z93.0 Tracheostomy TRACHEOSTOMY Diagnosis 04/22/2020 [facility] (St. status STATUS 12:00:00 AM [facility] EDT [facility]) Z46.6 Encounter for ENCOUNTER FOR Diagnosis 04/22/2020 [facility] (St. fitting and FITTING AND 12:00:00 AM [facility] adjustment of ADJUSTMENT OF EDT [facility]) urinary device URINARY DEVICE F32.1 Major depressive MAJOR Diagnosis 04/22/2020 [facility] (St. disorder, single DEPRESSIVE 12:00:00 AM [facility] episode, moderate DISORDER, EDT [facility]) SINGLE EPISODE, MODERATE M62.81 Muscle weakness MUSCLE WEAKNESS Diagnosis 04/22/2020 [facility] (St. (generalized) (GENERALIZED) 12:00:00 AM [facility] EDT [facility]) K21.9 Gastro-esophageal GASTRO-ESOPHAGE Diagnosis 04/22/2020 [facility] (St. reflux disease AL REFLUX 12:00:00 AM [facility] without DISEASE WITHOUT EDT Nursing H ome) esophagitis ESOPHAGITIS D64.9 Anemia, ANEMIA, Diagnosis 04/22/2020 [facility] (St. unspecified UNSPECIFIED 12:00:00 AM [facility] EDT [facility]) M19.90 Unspecified UNSPECIFIED Diagnosis 04/22/2020 [facility] (St. osteoarthritis, OSTEOARTHRITIS, 12:00:00 AM [facility] unspecified site UNSPECIFIED EDT [facility]) SITE F41.9 Anxiety disorder, ANXIETY Diagnosis 04/22/2020 [facility] ([facility] . unspecified DISORDER, 12:00:00 AM [facility] UNSPECIFIED EDT [facility]) E78.5 Hyperlipidemia, HYPERLIPIDEMIA, Diagnosis 04/22/2020 [facility] (St. unspecified UNSPECIFIED 12:00:00 AM [facility] EDT [facility]) I10 Essential ESSENTIAL Diagnosis 04/22/2020 [facility] (St. (primary) (PRIMARY) 12:00:00 AM [facility] hypertension HYPERTENSION EDT Nursing me) I65.29 Occlusion and OCCLUSION AND Diagnosis 04/22/2020 [facility] (St. stenosis of STENOSIS OF 12:00:00 AM [facility] unspecified UNSPECIFIED EDT [facility] ) carotid artery CAROTID ARTERY E03.9 Hypothyroidism, HYPOTHYROIDISM, Diagnosis 04/22/2020 [facility] (St. unspecified UNSPECIFIED 12:00:00 AM [facility] EDT [facility]) Z85.850 Personal history PERSONAL Diagnosis 04/22/2020 [facility] (St. of malignant HISTORY OF 12:00:00 AM [facility] neoplasm of MALIGNANT EDT Halfway) thyroid NEOPLASM OF THYROID R13.10 Dysphagia, DYSPHAGIA, Diagnosis 04/22/2020 [facility] (St. unspecified UNSPECIFIED 12:00:00 AM [facility] EDT [facility]) A41.9 Sepsis, SEPSIS, Diagnosis 04/22/2020 [facility] (St. unspecified UNSPECIFIED 12:00:00 AM [facility] organism ORGANISM EDT [facility]) R47.01 Aphasia APHASIA Diagnosis 04/22/2020 [facility] (St. 12:00:00 AM [facility] EDT [facility]) Z93.1 Gastrostomy GASTROSTOMY Diagnosis 04/22/2020 [facility] (St. status STATUS 12:00:00 AM [facility] EDT [facility]) I69.193 Ataxia following ATAXIA Diagnosis 04/22/2020 [facility] (St. nontraumatic FOLLOWING 12:00:00 AM [facility] intracerebral NONTRAUMATIC EDT Nursing H ome) hemorrhage INTRACEREBRAL HEMORRHAGE I69.391 Dysphagia DYSPHAGIA Diagnosis 04/22/2020 [facility] (St. following FOLLOWING 12:00:00 AM [facility] cerebral CEREBRAL EDT [facility]) infarction INFARCTION I61.9 Nontraumatic NONTRAUMATIC Diagnosis 04/22/2020 [facility] (St. intracerebral INTRACEREBRAL 12:00:00 AM [facility] hemorrhage, HEMORRHAGE, EDT [facility] ) unspecified UNSPECIFIED N30.20 Other chronic OTHER CHRONIC Diagnosis 04/22/2020 [facility] (St. cystitis without CYSTITIS 12:00:00 AM [facility] hematuria WITHOUT EDT [facility]) HEMATURIA G93.40 Encephalopathy, ENCEPHALOPATHY, Diagnosis 04/22/2020 [facility] (St. unspecified UNSPECIFIED 12:00:00 AM [facility] EDT [facility]) Z85.850 Personal history PERSONAL Diagnosis 03/19/2020 Arina Rivers yes of malignant HISTORY OF 05:33:00 PM Hospital neoplasm of MALIGNANT EDT thyroid NEOPLASM OF THYROID R13.10 Dysphagia, DYSPHAGIA, Diagnosis 03/19/2020 Arina Leiva unspecified UNSPECIFIED 05:33:00 PM Hospital EDT Z96.0 Presence of PRESENCE OF Diagnosis 03/19/2020 Arina Leiva urogenital UROGENITAL 05:33:00 PM Hospital implants IMPLANTS EDT N30.20 Other chronic OTHER CHRONIC Diagnosis 03/19/2020 Arina Rivers yes cystitis without CYSTITIS 05:33:00 PM Hospita l hematuria WITHOUT EDT HEMATURIA C61 Malignant MALIGNANT Diagnosis 03/19/2020 Arina Leiva neoplasm of NEOPLASM OF 05:33:00 PM Hospital prostate PROSTATE EDT I65.23 Occlusion and OCCLUSION AND Diagnosis 03/19/2020 Arina Rivers yes stenosis of STENOSIS OF 05:33:00 PM Hospital bilateral carotid BILATERAL EDT arteries CAROTID ARTERIES F41.1 Generalized GENERALIZED Diagnosis 03/19/2020 Arina Leiva anxiety disorder ANXIETY 05:33:00 PM Hospita l DISORDER EDT J96.90 Respiratory RESPIRATORY Diagnosis 03/19/2020 Arina Leiva failure, FAILURE, UNSP, 05:33:00 PM Hospital unspecified, UNSP W HYPOXIA EDT unspecified OR HYPERCAPNIA whether with hypoxia or hypercapnia I48.91 Unspecified UNSPECIFIED Diagnosis 03/19/2020 Arina Leiva atrial ATRIAL 05:33:00 PM Hospital fibrillation FIBRILLATION EDT Z85.238 Personal history PERSONAL Diagnosis 03/19/2020 Arina Rivers yes of other HISTORY OF 05:33:00 PM Hospital malignant OTHER MALIGNANT EDT neoplasm of NEOPLASM OF thymus THYMUS 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 03/19/2020 Arina sorenson heart disease of DISEASE OF 05:33:00 PM Hospita l [place] coronary [place] CORONARY EDT artery without ARTERY W/O ANG angina pectoris PCTRS I10 Essential ESSENTIAL Diagnosis 03/19/2020 Arina Leiva (primary) (PRIMARY) 05:33:00 PM Hospital hypertension HYPERTENSION EDT I69.120 Aphasia following APHASIA Diagnosis 03/19/2020 Arina sorenson nontraumatic FOLLOWING 05:33:00 PM Hospital intracerebral NONTRAUMATIC EDT hemorrhage INTRACEREBRAL HEMORRHAGE Z43.1 Encounter for ENCOUNTER FOR Diagnosis 03/19/2020 Arina Rivers yes attention to ATTENTION TO 05:33:00 PM Hospital gastrostomy GASTROSTOMY EDT I69.191 Dysphagia DYSPHAGIA Diagnosis 03/19/2020 Arinanando Leiva following FOLLOWING 05:33:00 PM Hospital nontraumatic NONTRAUMATIC EDT intracerebral INTRACEREBRAL hemorrhage HEMORRHAGE Z43.0 Encounter for ENCOUNTER FOR Diagnosis 03/19/2020 Arina Rivers yes attention to ATTENTION TO 05:33:00 PM Hospital tracheostomy TRACHEOSTOMY EDT I69.151 Hemiplegia and HEMIPLGA FOL Diagnosis 03/19/2020 Arina Rivers yes hemiparesis NTRM INTCRBL 05:33:00 PM Hospital following HEMOR AFF RIGHT EDT nontraumatic DOMINANT SIDE intracerebral hemorrhage affecting right dominant side R65.21 Severe sepsis Severe sepsis Diagnosis 03/13/2020 [facility] with septic shock with septic 10:24:58 AM [facility] shock EDT Hospital R50.9 Fever, Fever, Diagnosis 03/13/2020 [facility] unspecified unspecified 10:24:58 AM [facility] EDT Hospital Z87.891 Personal history PERSONAL Diagnosis 03/11/2020 Arina Rivers yes of nicotine HISTORY OF 11:45:00 AM Hospital dependence NICOTINE EDT DEPENDENCE Z85.46 Personal history PERSONAL Diagnosis 03/11/2020 Arina Rivers yes of malignant HISTORY OF 11:45:00 AM Hospital neoplasm of MALIGNANT EDT prostate NEOPLASM OF PROSTATE Z95.828 Presence of other PRESENCE OF Diagnosis 03/11/2020 Arinanando Leiva vascular implants OTHER VASCULAR 11:45:00 AM Ho spital and grafts IMPLANTS AND EDT GRAFTS R53.83 Other fatigue OTHER FATIGUE Diagnosis 03/11/2020 Arina Rivers yes 11:45:00 AM Hospital EDT R13.12 Dysphagia, DYSPHAGIA, Diagnosis 03/11/2020 Arinanando Leiva oropharyngeal OROPHARYNGEAL 11:45:00 AM Hospita l phase PHASE EDT I69.291 Dysphagia DYSPHAGIA Diagnosis 03/11/2020 Arina Leiva following other FOLLOWING OTH 11:45:00 AM Hospi manju nontraumatic NONTRAUMATIC EDT intracranial INTRACRANIAL hemorrhage HEMORRHAGE I69.220 Aphasia following APHASIA Diagnosis 03/11/2020 Arina sorenson other FOLLOWING OTHER 11:45:00 AM Hospital nontraumatic NONTRAUMATIC EDT intracranial INTRACRANIAL hemorrhage HEMORRHAGE I69.251 Hemiplegia and HEMIPLGA FOL Diagnosis 03/11/2020 Arina Rivers yes hemiparesis OTH NTRM INTCRN 11:45:00 AM Hospita l following other HEMOR AFF RIGHT EDT nontraumatic DOMINANT SIDE intracranial hemorrhage affecting right dominant side 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/11/2020 Arina Leiva malignant MALIGNANT 11:45:00 AM Hospital neoplasm of other NEOPLASM OF EDT specified sites OTHER SPECIFIED SITES I47.2 Ventricular VENTRICULAR Diagnosis 03/11/2020 Arina Leiva tachycardia TACHYCARDIA 11:45:00 AM Hospital EDT 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 Diagnosis 03/11/2020 Arina Rivers yes respirator RESPIRATOR 11:45:00 AM Hospital [ventilator] [VENTILATOR] EDT status STATUS I62.9 Nontraumatic NONTRAUMATIC Diagnosis 03/11/2020 Arina Jurado s intracranial INTRACRANIAL 11:45:00 AM Hospital hemorrhage, HEMORRHAGE, EDT unspecified UNSPECIFIED J96.91 Respiratory RESPIRATORY Diagnosis 03/11/2020 Arina Leiva failure, FAILURE, 11:45:00 AM Hospital unspecified with UNSPECIFIED EDT hypoxia WITH HYPOXIA N28.1 Cyst of kidney, N28.1 Diagnosis 11/27/2019 [facility] [place] [facility] acquired 07:51:00 AM Hospital EST D49.0 Neoplasm of D49.0 Diagnosis 11/27/2019 [place] unspecified 07:51:00 AM Hospital behavior of EST digestive system R97.20 Elevated prostate R97.20 Diagnosis 11/27/2019 [facility] specific antigen 07:51:00 AM Hospita l [PSA] EST D50.0 Iron deficiency D50.0 Diagnosis 11/27/2019 [facility] [place] [facility] 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) Z85.238 Personal history Z85.238 Diagnosis 09/08/[address] of other 10:14:00 AM Hospital malignant EST neoplasm of thymus R91.8 Other nonspecific R91.8 Diagnosis 09/08/2019 [facility] abnormal finding 10:14:00 AM Hospita l of lung field EST E78.5 Hyperlipidemia, HYPERLIPIDEMIA, Diagnosis 08/24/2019 [place] unspecified UNSPECIFIED 06:00:00 AM [facility] EDT Care [employer] Z87.891 Personal history PERSONAL Diagnosis 08/24/[address] of nicotine HISTORY OF 06:00:00 AM [facility] dependence NICOTINE EDT Care DEPENDENCE [employer] I65.23 Occlusion and OCCLUSION AND Diagnosis 08/24/2019 [facility] stenosis of STENOSIS OF 06:00:00 [facility] carotid BILATERAL EDT Care arteries [employer] ARTERIES R91.1 Solitary R91.1 Diagnosis 03/17/2019 [place] pulmonary nodule 09:38:00 AM Hospita l EDT M41.9 Scoliosis, M41.9 Diagnosis 04/28/2018 [place] unspecified 07:30:00 AM Hospital EDT M51.36 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 04/28/2018 [place] 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:30:00 AM Hospital disc EDT degeneration, lumbar region I70.0 Atherosclerosis I70.0 Diagnosis 04/28/2018 [facility] [place] [facility] of aorta 07:30:00 AM Hospital EDT K76.89 Other specified K76.89 Diagnosis 04/28/2018 [facility] diseases of liver 07:30:00 AM Hospit al EDT I51.7 Cardiomegaly I51.7 Diagnosis 04/28/2018 [place] 07:30:00 AM Hospital EDT K86.2 Cyst of pancreas K86.2 Diagnosis 04/28/[address] 07:30:00 AM Hospital EDT [id number] preoperative Diagnosis [facility] anxiety [facility] [phone] severe pain Diagnosis [facility] [id number] Bruise Diagnosis [facility] [id number] Sepsis, due to Diagnosis [place] unspecified [facility] organism, Health System unspecified Inc whether acute organ dysfunction present ([facility]) [id number] Gross hematuria Diagnosis [facility] [id number] Complication of Kelly catheter Diagnosis [facility] urinary catheter problem, [facility] (disorder) initial Health System encounter (FORMERLY [facility]) Inc [id number] Acute on Diagnosis [facility] chronic [facility] respiratory Health System failure with Inc hypoxia ([facility]) [id number] Septic shock Septic shock Diagnosis [place] (disorder) ([facility]) [facility] Inc [id number] At risk for At risk for Diagnosis Bon S ecours sepsis (finding) sepsis [facility] [id number] Fever, Diagnosis [facility] unspecified [facility] fever cause Health System Inc [id number] Bruise Diagnosis [facility] [id number] Sepsis, due to Diagnosis [place] unspecified [facility] organism, Health System unspecified Inc whether acute organ dysfunction present ([facility]) [id number] Gross hematuria Diagnosis Bon Nellaou rs [facility] [id number] Complication of Kelly catheter Diagnosis Peter S ecours urinary catheter problem, [facility] (disorder) initial Health System encounter ([facility]) Inc [id number] Acute on Diagnosis Peter Richard chronic [facility] respiratory Health System failure with Inc hypoxia ([facility]) [id number] Septic shock Septic shock Diagnosis [place] (disorder) (HCC) [facility] [id number] At risk for At risk for Diagnosis Peter S ecoellis sepsis (finding) sepsis [facility] [id number] Fever, Diagnosis Peter Richard unspecified [facility] fever cause Health System Inc Surgeries/Procedures Procedure Description Date Indications Data Source(s) Hand (2 Views) Right Hand (2 Views) Right 04/17/2020 Arina Leiva 12:00:00 AM Hospital EDT Portable Chest X-Ray Portable Chest X-Ray 04/08/2020 Arina Leiva 12:00:00 AM Hospital EDT Video Fluoro- Video Fluoro- 04/02/2020 Arina Leiva Swallowing Swallowing 12:00:00 AM Hospital EDT Portable Chest X-Ray Portable Chest X-Ray 04/01/2020 Arina Leiva 12:00:00 AM Hospital EDT Hip & Pelvis 2-3 Hip & Pelvis 2-3 Vws 03/27/2020 Brian Leiva Vws Right Right 12:00:00 AM Hospital EDT Shoulder Complete Shoulder Complete 03/27/2020 Arina Leiva Right Right 12:00:00 AM Hospital EDT Duplex Scan Vein Duplex Scan Vein 03/27/2020 Arina sorenson Unilat Unilat 12:00:00 AM Hospital EDT Portable Chest X-Ray Portable Chest X-Ray 03/26/2020 Arina Leiva 12:00:00 AM Hospital EDT Portable Chest X-Ray Portable Chest X-Ray 03/20/2020 Arina Leiva 12:00:00 AM Hospital EDT TRACHEOSTOMY TRACHEOSTOMY Routine 03/19/2020 03/19/2020 Bon CHANGE CHANGE 3:51 PM EDT 03:51:[address] [facility] [address] [facility] CBC WITH CBC WITH Routine 03/19/2020 03/19/2020 Bon MANUAL DIFF MANUAL DIFF 3:55 AM EDT 03:55:00 AM [facility] METABOLIC METABOLIC Routine 03/19/2020 03/19/2020 Bon PANEL, PANEL, 3:55 AM EDT 03:55:00 AM [facility] HC CBC WITHOUT HC CBC WITHOUT Routine 03/18/2020 020 Bon DIFFERENTIAL DIFFERENTIAL 3:44 AM EDT 03:44:00 A M [facility] METABOLIC METABOLIC Routine 03/18/2020 03/18/2020 Bon PANEL, PANEL, 3:44 AM EDT 03:44:00 AM [facility] HC CBC WITHOUT HC CBC WITHOUT Routine 03/17/2020 020 Bon DIFFERENTIAL DIFFERENTIAL 3:46 AM EDT 03:46:00 A M [facility] METABOLIC METABOLIC Routine 03/17/2020 03/17/2020 Bon PANEL, PANEL, 3:46 AM EDT 03:46:00 AM [facility] NC XR NC XR Routine 03/16/2020 03/16/2020 Jesus n TECHNOLOGIST TECHNOLOGIST 9:51 PM EDT 09:51:31 P M [facility] SERVICE SERVICE [facility] CULTURE, URINE CULTURE, URINE Routine 03/16/2020 020 Bon 9:30 PM EDT 09:30:00 PM [facility] CYSTOSCOPY CYSTOSCOPY 03/16/2020 Urethra 03/16/2020 Uret hra Bon 8:36 PM EDT or 08:36:00 PM or [facility] bladder EDT - bladder [facility] neck 03/16/2020 neck Healt h atresia 09:51:00 PM atresia Syst em or EDT or Inc stenosis stenosis Urethra or bladder neck atresia or steno sis HC CBC WITHOUT HC CBC WITHOUT Routine 03/16/2020 020 Bon DIFFERENTIAL DIFFERENTIAL 6:24 PM EDT 06:24:00 P M [facility] nc HC CDIFF TOXIN HC CDIFF TOXIN Routine 03/16/2020 020 Bon AMP PROB AMP PROB 6:11 PM EDT 06:11:00 PM [facility] EDT [facility] I nc XR WRIST RT XR WRIST RT Routine 03/16/2020 03/16/2020 Bon AP/LAT AP/LAT 2:50 PM EDT 02:50:39 PM [facility] CT CHEST ABD PELV CT CHEST ABD PELV Routine 03/16/2020 0 03/16/2020 Bon WO CONT WO CONT 1:40 PM EDT 01:40:49 PM [facility] nc CBC WITH CBC WITH Routine 03/16/2020 03/16/2020 Bon AUTOMATED DIFF AUTOMATED DIFF 4:16 AM EDT 04:16: 00 AM [facility] nc METABOLIC PANEL, METABOLIC PANEL, Routine 03/16/2020 Bon COMPREHENSIVE COMPREHENSIVE 4:16 AM EDT 04:16:00 AM [facility] nc HC CULTURE BLOOD HC CULTURE BLOOD Routine 03/15/2020 Bon 11:45 AM EDT 11:45:00 AM [facility] nc HC CULTURE BLOOD HC CULTURE BLOOD Routine 03/15/2020 Bon 11:40 AM EDT 11:40:00 AM [facility] nc HC VANCOMYCIN HC VANCOMYCIN Timed 03/15/2020 0 Bon TROUGH TROUGH 9:55 AM EDT 09:55:00 AM [facility] nc HC EIA QL SITE LEADER HC EIA QL SITE LEADER Routine 03/15/2020 0 Bon STREP GROUPB AG STREP GROUPB AG 8:40 AM EDT 08:4 0:00 AM [facility] I nc CBC WITH CBC WITH Routine 03/15/2020 03/15/2020 Bon AUTOMATED DIFF AUTOMATED DIFF 3:50 AM EDT 03:50: 00 AM [facility] nc METABOLIC PANEL, METABOLIC PANEL, Routine 03/15/2020 Bon COMPREHENSIVE COMPREHENSIVE 3:50 AM EDT 03:50:00 AM [facility] I nc HC CULTURE HC CULTURE Routine 03/14/2020 03/14/2020 Bon RESPIRATORY RESPIRATORY 11:00 PM EDT 11:00:00 PM [facility] nc HC EIA QL SGL HC EIA QL SGL Routine 03/14/2020 0 Bon ANTIGEN ANTIGEN 8:40 AM EDT 08:40:00 AM [facility] I nc XR CHEST PORT XR CHEST PORT Routine 03/14/2020 0 Bon 5:31 AM EDT 05:31:15 AM [facility] nc CBC WITH CBC WITH Routine 03/14/2020 03/14/2020 Bon AUTOMATED DIFF AUTOMATED DIFF 4:34 AM EDT 04:34: 00 AM [facility] nc METABOLIC PANEL, METABOLIC PANEL, Routine 03/14/2020 Bon COMPREHENSIVE COMPREHENSIVE 4:34 AM EDT 04:34:00 AM [facility] nc HC LACTIC ACID HC LACTIC ACID Routine 03/14/2020 020 Bon 4:34 AM EDT 04:34:00 AM [facility] nc HC ABO BLOOD TYPE HC ABO BLOOD TYPE Routine 03/14/2020 0 03/14/2020 Bon 4:32 AM EDT 04:32:00 AM [facility] nc HC CULTURE BLOOD HC CULTURE BLOOD STAT 03/13/2020 Bon 9:12 PM EDT 09:12:00 PM [facility] nc HC CULTURE BLOOD HC CULTURE BLOOD STAT 03/13/2020 Bon 9:00 PM EDT 09:00:00 PM [facility] nc DUPLEX UPPER EXT DUPLEX UPPER EXT Routine 03/13/2020 Bon VENOUS RIGHT VENOUS RIGHT 4:43 PM EDT 04:43:00 P M [facility] nc HC LACTIC ACID HC LACTIC ACID STAT 03/13/2020 020 Bon 3:35 PM EDT 03:35:00 PM [facility] nc CT HEAD WO CONT CT HEAD WO CONT STAT 03/13/202003/13 Bon 2:22 PM EDT 02:22:24 PM [facility] nc HC REF SARS-COV-2 HC REF SARS-COV-2 Routine 03/13/2020 0 03/13/2020 Bon HIGH THROUGHPUT HIGH THROUGHPUT 1:15 PM EDT 01:1 5:00 PM [facility] I nc HC BLOOD GAS W HC BLOOD GAS W Routine 03/13/2020 020 Bon CALC O2/VENOUS CALC O2/VENOUS 12:25 PM EDT 12:25 :00 PM [facility] nc XR CHEST PORT XR CHEST PORT STAT 03/13/2020 0 Bon 11:18 AM EDT 11:18:55 AM [facility] nc URINALYSIS W/ URINALYSIS W/ STAT 03/13/2020 0 Bon RFLX MICROSCOPIC RFLX MICROSCOPIC 10:50 AM EDT 1 0:50:00 AM [facility] nc URINE MICROSCOPIC URINE MICROSCOPIC Routine 03/13/2020 0 03/13/2020 Bon 10:50 AM EDT 10:50:00 AM [facility] nc CULTURE, URINE CULTURE, URINE STAT 03/13/2020 020 Bon 10:50 AM EDT 10:50:00 AM [facility] nc HC LACTIC ACID HC LACTIC ACID STAT 03/13/2020 020 Bon 10:50 AM EDT 10:50:00 AM [facility] nc HC CULTURE BLOOD HC CULTURE BLOOD STAT 03/13/2020 Bon 10:40 AM EDT 10:40:00 AM [facility] nc PROTHROMBIN TIME PROTHROMBIN TIME STAT 03/13/2020 Bon + INR + INR 10:40 AM EDT 10:40:00 AM [facility] nc CBC WITH CBC WITH STAT 03/13/2020 03/13/2020 Bon AUTOMATED DIFF AUTOMATED DIFF 10:40 AM EDT 10:40 :00 AM [facility] nc HC PARTIAL HC PARTIAL STAT 03/13/2020 03/13/2020 Bon THROMBOPLASTIN/ THROMBOPLASTIN/ 10:40 AM EDT 10: 40:00 AM [facility] PTT PTT [facility] nc HC TROPONIN I HC TROPONIN I STAT 03/13/2020 0 Bon QUANT QUANT 10:40 AM EDT 10:40:00 AM [facility] nc METABOLIC PANEL, METABOLIC PANEL, STAT 03/13/2020 Bon COMPREHENSIVE COMPREHENSIVE 10:40 AM EDT 10:40:0 0 AM [facility] LIPASE LIPASE STAT 03/13/2020 03/13/2020 Jesus n 10:40 AM EDT 10:40:00 AM [facility] nc CENTRAL VENOUS CENTRAL VENOUS STAT 03/13/2020 020 Bon LINE INSERTION LINE INSERTION 10:31 AM EDT 10:31 :44 AM [facility] nc EKG, 12 LEAD, EKG, 12 LEAD, STAT 03/13/2020 0 Bon INITIAL INITIAL 10:28 AM EDT 10:28:08 AM [facility] nc HC CULTURE BLOOD HC CULTURE BLOOD STAT 03/13/2020 Bon 10:20 AM EDT 10:20:00 AM [facility] nc Portable Chest X-Ray Portable Chest X-Ray 03/13/2020 12:00:00 AM [facility] EDT Portable Chest X-Ray Portable Chest X-Ray 03/12/2020 12:00:00 AM [facility] EDT Results ID Date Data Source [id number] 06/23/2020 10:25:00 AM EDT [facility] Name Value Range Interpretation Code Description Data Annabelle rce(s) Supporting Document(s ) HOLOGIC [facility] SARS-CoV-2 TMA PCR This lab was ordered by [facility] and reported by [employer]. ID Date Data Source [id number] 04/22/2020 08:51:00 AM EDT [facility] ospital Name Value Range Interpretation Description Data Sup porting Code Source(s) Document(s ) BLOOD UREA 28 mg/dL 7-18 Above high normal [facility] CREATININE 0.70 0.70-1.3 Normal (applies Arina Leiva mg/dL 0 to non-numeric Hospital results) SODIUM LEVEL 132 136-145 Below low normal Arina Rhiannon s mmol/L Hospital POTASSIUM 3.4 3.5-5.1 Below low normal Arina Leiva LEVEL mmol/L Hospital BUN/CREATININE 40.0 12.0-20. Above high normal Arina H ayes RATIO 0 Hospital EST GLOMERULAR > 60.0 > 60 Arina Leiva FILTRATION mL/min/ mL/min Hospital RATE GFR ESTIMATE MDRD Equation (Modification of Diet in RenalDisease). Reference range is >= 60mL/min/1.73m2 If patient is Afri can Citizen Of [place], multiply printed result by1.21NOTE: A calculated eGFR of <60 woods ggests chronic kidneydisease, but only if found consistently over at least 3months . A calculated result of <15 is consistent with renalfailure. CREATININE CLEARANCE CALC 74.00 mL/min > 60 mL/min [facility] Medication dose adjustment may be needed for CrCl< 60 mL/min.The estimated creatinine clearance (CRCL) is calculatedusing the Cockcroft-Gault (C-G) equation, which utilizesserum creatinine, gender, and jesus dy weight (Cockcroft DW,Gault MH. Prediction of creatinine clearance from serumcreati nine. Nephron 1976; 16(1):31-41). The C-G equationoverestimates GFR because of the tubular secretion ofcreatinine and the values are not adjusted for body-surface area.Please note that the C-G equation may be limited in thesetting of extremes of mus eusebio mass (e.g. obesity oratrophy),extremes of age, malnutrition, liver disease,advance d renal failure, and unstable renal function. ID Date Data Source [id number] 04/22/2020 08:51:00 AM EDT [facility] ospital Name Value Range Interpretation Description Data Sup porting Code Source(s) Document(s ) WHITE BLOOD 4.9 3.5-9.1 Normal (applies [facility] COUNT 10(3)/uL to non-numeric Hospital results) RED BLOOD COUNT 3.78 4.30-5.6 Below low normal [facility] HEMOGLOBIN 11.3 13.3-16. Below low normal [facility] g/dL 2 Hospital HEMATOCRIT 34.7 % 38.8-46. Below low normal [facility] 4 Hospital MEAN 92 fl 79-93 Normal (applies [facility] CORPUSCULAR to non-numeric Hospital VOLUME results) MEAN 30 pg 27-32 Normal (applies [facility] CORPUSCULAR to non-numeric Hospital HEMOGLOBIN results) MEAN 33 g/dl 32-36 Normal (applies [facility] CORPUSCULAR HGB to non-numeric Hospital CONC results) RED CELL 15.9 % 0.0-14.5 Above high normal [facility] WIDTH PLATELET COUNT [phone] Normal (applies Arina Hawkins es 10(3)/uL to non-numeric Hospital results) MEAN PLATELET 11.0 fl 9.0-13.0 Normal (applies Arina Jurado s VOLUME to non-numeric Hospital results) ID Date Data Source [id number] 04/22/2020 02:28:00 AM EDT [facility] Name Value Range Interpretation Code Description Data Annabelle rce(s) Supporting Document(s ) SARS-CoV-2 [facility] , RNA This lab was ordered by [facility] and reported by [employer]. ID Date Data Source [id number] 04/18/2020 03:40:00 PM EDT [facility] ospital SPOKE TO SAM MURCIAAHAM COURTNEY LUNDBERG @ 80EAD BACK AND VERIFIEDResult Reference RangeNot Detected Not DetectedNOTE: Please consider re-collection of a new specimen, ifclini risa indicated.NOTE: The COVID-19 assay has been cleared by the U.S. Foodand Drug Ad ministration under the Emergency UseAuthorization (EUA). [facility] oratories is designatedas a high complexity laboratory by the Clinical LaboratoryImp rovement Amendments of 1988(CLIA) and is qualified toperform this test. ASSAY INF ORMATION: Real Time RT-PCRPerformed by:[facility], [id number] [place], [place] [id number] Anson Reyes M.D.Jacquard Loom Card Changer Name Value Range Interpretation Code Description Data Annabelle rce(s) Supporting Document(s ) ID Date Data Source [id number] 04/18/2020 12:00:00 AM EDT [facility] Name Value Range Interpretation Code Description Data Annabelle rce(s) Supporting Document(s ) 2019-nCoV [facility] RNA XXX BENITO+probe- Imp This lab was ordered by [facility] and reported by [employer] ID Date Data Source [id number] 04/17/2020 02:39:00 PM EDT [facility] ospital X-RAY RIGHT HAND (04/17/2020) Histo ry: Pain. Findings: 2 views of the right hand are submitted for interpretat ion. No prior studies are available for comparison. There is extensive degen erative change of the interphalangeal joints, distal more so the proximal. There i s degenerative change of the first carpal metacarpal joint as well as the radiocar pal joints.There may be some scapholunate separation although this is difficult to evaluate on this study. No definite fracture, dislocation, or focal bony kevon tructive lesion is seen. IMPRESSION: Extensive degenerative changes. Imag es read and reviewed by True Teran MD on 04/17/2020. Name Value Range Interpretation Code Description Data Annabelle rce(s) Supporting Document(s ) ID Date Data Source [id number] 04/15/2020 02:40:00 PM EDT [facility]ital CALLED TO JUAN ROJAS/COURTNEY Hernandez @1425Result Reference RangeNot Detected Not Detected NOTE: Please consider re-collection of a new specimen, ifclinically indicated.NOTE: T he COVID-19 assay has been cleared by the U.S. Foodand Drug Administration under t he Emergency UseAuthorization (EUA). [facility] is designateda s a high complexity laboratory by the Clinical LaboratoryImprovement Amendment s of 1988(CLIA) and is qualified toperform this test. ASSAY INFORMATION: Real Time RT-PCRPerformed by:[facility], [id number] [place] [address] Anson Reyes M.D.Jacquard Loom Card Changer Name Value Range Interpretation Code Description Data Annabelle rce(s) Supporting Document(s ) ID Date Data Source [id number] 04/15/2020 08:22:00 AM EDT [facility] Name Value Range Interpretation Description Data Sup porting Code Source(s) Document(s ) VALPROIC 28.8 50.0-100. Below low normal Arina Leiva ACID ug/mL 0 Hospital (DEPAKENE) LEVEL ID Date Data Source [id number] 04/15/2020 08:22:00 AM EDT [facility] Name Value Range Interpretation Description Data Sup porting Code Source(s) Document(s ) BLOOD UREA 22 mg/dL 7-18 Above high normal Arina Leiva NITROGEN Hospital CREATININE 0.69 0.70-1.3 Below low normal [facility] mg/dL 0 Hospital SODIUM LEVEL 132 136-145 Below low normal [facility] s mmol/L Hospital POTASSIUM 4.1 3.5-5.1 Normal (applies [facility] LEVEL mmol/L to non-numeric Hospital results) BUN/CREATININE 31.8 12.0-20. Above high normal Arina H ayes RATIO 0 Hospital EST GLOMERULAR > 60.0 > 60 [facility] FILTRATION mL/min/ mL/min Hospital RATE GFR ESTIMATE MDRD Equation (Modification of Diet in RenalDisease). Reference range is >= 60mL/min/1.73m2 If patient is Afri can Citizen Of [place], multiply printed result by1.21NOTE: A calculated eGFR of <60 woods ggests chronic kidneydisease, but only if found consistently over at least 3months . A calculated result of <15 is consistent with renalfailure. CREATININE CLEARANCE CALC 74.00 mL/min > 60 mL/min [facility] Medication dose adjustment may be needed for CrCl< 60 mL/min.The estimated creatinine clearance (CRCL) is calculatedusing the Cockcroft-Gault (C-G) equation, which utilizesserum creatinine, gender, and jesus dy weight (Cockcroft DW,Gault MH. Prediction of creatinine clearance from serumcreati nine. Nephron 1976; 16(1):31-41). The C-G equationoverestimates GFR because of the tubular secretion ofcreatinine and the values are not adjusted for body-surface area.Please note that the C-G equation may be limited in thesetting of extremes of mus eusebio mass (e.g. obesity oratrophy),extremes of age, malnutrition, liver disease,advance d renal failure, and unstable renal function. ID Date Data Source [id number] 04/15/2020 08:22:00 AM EDT [facility] H ospital Name Value Range Interpretation Description Data Sup porting Code Source(s) Document(s ) WHITE BLOOD 6.0 3.5-9.1 Normal ([facility](3[facility]L to non-numeric Hospital results) RED BLOOD COUNT 3.34 4.30-5.6 Below low normal Arina H ayes 10(6)/uL 0 Hospital HEMOGLOBIN 10.1 13.3-16. Below low normal Arina Leiva g/dL 2 Hospital HEMATOCRIT 31.3 % 38.8-46. Below low normal [facility] 4 Hospital MEAN 94 fl 79-93 Above high normal [facility] CORPUSCULAR Hospital VOLUME MEAN 30 pg 27-32 Normal (applies [facility] CORPUSCULAR to non-numeric Hospital HEMOGLOBIN results) MEAN 32 g/dl 32-36 Normal (applies [facility] CORPUSCULAR HGB to non-numeric Hospital CONC results) RED CELL 17.1 % 0.0-14.5 Above high normal [facility] DISTRIBUTION Hospital WIDTH PLATELET COUNT [phone] Normal (applies [facility] es 10(3)/uL to non-numeric Hospital results) MEAN PLATELET 10.5 fl 9.0-13.0 Normal (applies [facility] s VOLUME to non-numeric Hospital results) ID Date Data Source [id number] 04/15/2020 12:00:00 AM [facility] Name Value Range Interpretation Code Description Data Annabelle rce(s) Supporting Document(s ) 2019-nCoV [facility] RNA XXX BENITO+probe- Imp This lab was ordered by [facility] and reported by [employer]. ID Date Data Source [id number] 04/11/2020 09:27:00 AM EDT [facility] ospital Name Value Range Interpretation Description Data Sup porting Code Source(s) Document(s ) TSH REFLEX 1.73 0.36-3.74 Normal (applies to [facility] uIU/ml non-numeric Hospital results) Ambulatory patients with a serum TSH bet ween 2.5 mIU/L and4 mIU/L may be in early stages of thyroid failure. Apersistentl y elevated TSH, when measured at least 3 weeksafter the initial measurement, bri g with the presence ofThyroid Peroxidase antibodies (TPOAb), confirms thepresence of thyroid disease.National Academy of Clinical Biochemistry guidelinesrecommen d that patients should have TSH levelsbelow 2.5 mIU/L. Values above amauri t in the first trimesterare associated with increased risk for miscarriage,premature , and a lower IQ in the child.Specimens containing high levels of Biotin may int erferewith this assay. ID Date Data Source [id number] 04/11/2020 09:27:00 AM EDT [facility] ospital Name Value Range Interpretation Description Data Sup porting Code Source(s) Document(s ) BLOOD UREA 25 mg/dL 7-18 Above high normal [facility] NITROGEN [facility] CREATININE 0.79 0.70-1.3 Normal (applies [facility] mg/dL 0 to non-numeric Hospital results) SODIUM LEVEL 136 136-145 Normal (applies [facility] mmol/L to non-numeric Hospital results) POTASSIUM 4.1 3.5-5.1 Normal (applies [facility] LEVEL mmol/L to non-numeric Hospital results) BUN/CREATININE 31.6 12.0-20. Above high normal Arina H ayes RATIO 0 Hospital EST GLOMERULAR > 60.0 > 60 [facility] FILTRATION mL/min/ mL/min Hospital RATE GFR ESTIMATE MDRD Equation (Modification of Diet in RenalDisease). Reference range is >= 60mL/min/1.73m2 If patient is Afri can Citizen Of [place], multiply printed result by1.21NOTE: A calculated eGFR of <60 woods ggests chronic kidneydisease, but only if found consistently over at least 3months . A calculated result of <15 is consistent with renalfailure. CREATININE CLEARANCE CALC 74.00 mL/min > 60 mL/min [facility] Medication dose adjustment may be needed for CrCl< 60 mL/min.The estimated creatinine clearance (CRCL) is calculatedusing the Cockcroft-Gault (C-G) equation, which utilizesserum creatinine, gender, and jesus dy weight (Cockcroft DW,Gault MH. Prediction of creatinine clearance from serumcreati nine. Nephron 1976; 16(1):31-41). The C-G equationoverestimates GFR because of the tubular secretion ofcreatinine and the values are not adjusted for body-surface area.Please note that the C-G equation may be limited in thesetting of extremes of mus eusebio mass (e.g. obesity oratrophy),extremes of age, malnutrition, liver disease,advance d renal failure, and unstable renal function. ID Date Data Source [id number] 04/11/2020 09:27:00 AM EDT [facility] ospital Name Value Range Interpretation Description Data Sup porting Code Source(s) Document(s ) WHITE BLOOD 5.5 3.5-9.1 Normal (applies Arina Leiva COUNT 10(3)/uL to non-numeric Hospital results) RED BLOOD COUNT 3.49 4.30-5.6 Below low normal Arina H ayes 10(6)/uL 0 Hospital HEMOGLOBIN 10.3 13.3-16. Below low normal Arina Leiva g/dL 2 Hospital HEMATOCRIT 33.2 % 38.8-46. Below low normal [facility] Leiva 4 Hospital MEAN 95 fl 79-93 Above high normal Ar[facility] Leiva CORPUSCULAR Hospital VOLUME MEAN 30 pg 27-32 Normal (applies Arina Leiva CORPUSCULAR to non-numeric Hospital HEMOGLOBIN results) MEAN 31 g/dl 32-36 Below low normal Arina Lieva CORPUSCULAR HGB Hospital CONC RED CELL 18.0 % 0.0-14.5 Above high normal [facility] Le[facility] DISTRIBUTION Hospital WIDTH PLATELET COUNT [phone] Normal (applies Arina Hay es 10(3)/uL to non-numeric Hospital results) MEAN PLATELET 10.2 fl 9.0-13.0 Normal (applies Arina Rhiannon s VOLUME to non-numeric Hospital results) ID Date Data Source [id number] 04/10/2020 10:05:00 AM EDT [facility] Name Value Range Interpretation Description Data Sup porting Code Source(s) Document(s ) BLOOD UREA 26 mg/dL 7-18 Above high normal [facility] NITROGEN Hospital CREATININE 0.82 0.70-1.3 Normal (applies Arina Leiva mg/dL 0 to non-numeric Hospital results) SODIUM LEVEL 134 136-145 Below low normal Arina Rhiannon s mmol/L Hospital POTASSIUM 3.9 3.5-5.1 Normal (applies Arina Leiva LEVEL mmol/L to non-numeric Hospital results) BUN/CREATININE 31.7 12.0-20. Above high normal Arina H ayes RATIO 0 Hospital EST GLOMERULAR > 60.0 > 60 Ar[facility] Leiva FILTRATION mL/min/ mL/min Hospital RATE GFR ESTIMATE MDRD Equation (Modification of Diet in RenalDisease). Reference range is >= 60mL/min/1.73m2 If patient is Afri can Citizen [place], multiply printed result by1.21NOTE: A calculated eGFR of <60 woods ggests chronic kidneydisease, but only if found consistently over at least 3months . A calculated result of <15 is consistent with renalfailure. CREATININE CLEARANCE CALC 72.00 mL/min > 60 mL/min [facility] Medication dose adjustment may be needed for CrCl< 60 mL/min.The estimated creatinine clearance (CRCL) is calculatedusing the Cockcroft-Gault (C-G) equation, which utilizesserum creatinine, gender, and jesus dy weight (Cockcroft DW,Gault MH. Prediction of creatinine clearance from serumcreati nine. Nephron 1976; 16(1):31-41). The C-G equationoverestimates GFR because of the tubular secretion ofcreatinine and the values are not adjusted for body-surface area.Please note that the C-G equation may be limited in thesetting of extremes of mus eusebio mass (e.g. obesity oratrophy),extremes of age, malnutrition, liver disease,advance d renal failure, and unstable renal function. ID Date Data Source [id number] 04/09/2020 11:00:00 AM EDT [facility] DONA DYE AND JAE LUNDBERG 1036 04/10/2020READ BACK AND VERIFIEDResult Reference RangeNot Detecte d Not DetectedNOTE: Please consider re-collection of a new specimen, ifclini risa indicated.NOTE: The COVID-19 assay has been cleared by the U.S. Foodand Drug Ad ministration under the Emergency UseAuthorization (EUA). [facility] is designatedas a high complexity laboratory by the Clinical LaboratoryImp rovement Amendments of 1988(CLIA) and is qualified toperform this test. ASSAY INF ORMATION: Real Time RT-PCRPerformed by:[facility], [address] [place], [place] [id number] Anson Reyes M.D.Jacquard Loom Card Changer Name Value Range Interpretation Code Description Data Annabelle rce(s) Supporting Document(s ) ID Date Data Source [id number] 04/09/2020 07:57:00 AM EDT Ar[facility] card[facility] Name Value Range Interpretation Description Data Sup porting Code Source(s) Document(s ) BLOOD UREA 23 mg/dL 7-18 Above high normal [facility] CREATININE 0.85 0.70-1.3 Normal (applies [facility] mg/dL 0 to non-numeric Hospital results) SODIUM LEVEL 135 136-145 Below low normal [facility] mmol/L [facility] POTASSIUM 4.4 3.5-5.1 Normal (applies [facility] LEVEL mmol/L to non-numeric Hospital results) BUN/CREATININE 27.0 12.0-20. Above high normal [facility] ayes RATIO 0 Hospital EST GLOMERULAR > 60.0 > 60 [facility] FILTRATION mL/min/ mL/min Hospital RATE GFR ESTIMATE MDRD Equation (Modification of Diet in RenalDisease). Reference range is >= 60mL/min/1.73m2 If patient is Afri [place] Citizen [place], multiply printed result by1.21NOTE: A calculated eGFR of <60 woods ggests chronic kidneydisease, but only if found consistently over at least 3months . A calculated result of <15 is consistent with renalfailure. CREATININE CLEARANCE CALC 70.00 mL/min > 60 mL/min [facility] Medication dose adjustment may be needed for CrCl< 60 mL/min.The estimated creatinine clearance (CRCL) is calculatedusing the Cockcroft-Gault (C-G) equation, which utilizesserum creatinine, gender, and jesus dy weight (Cockcroft DW,Gault MH. Prediction of creatinine clearance from serumcreati nine. Nephron 1976; 16(1):31-41). The C-G equationoverestimates GFR because of the tubular secretion ofcreatinine and the values are not adjusted for body-surface area.Please note that the C-G equation may be limited in thesetting of extremes of mus eusebio mass (e.g. obesity oratrophy),extremes of age, malnutrition, liver disease,advance d renal failure, and unstable renal function. ID Date Data Source [id number] 04/09/2020 12:00:00 AM EDT [facility] Name Value Range Interpretation Code Description Data Annabelle rce(s) Supporting Document(s ) 2019-nCoV [facility] RNA XXX BENITO+probe- Imp This lab was ordered by [facility] and reported by [employer]. ID Date Data Source [id number] 04/08/2020 01:46:00 PM EDT [facility] CHEST (04/08/2020) History: Pne [place]. Comparison: 04/01/2020. The right lower lobe infiltrate has consider ably improved. The left lower lobe atelectasis has also improved. No ot her changes are noted. IMPRESSION: Improvement of right basal infiltrate an d left lower lobe atelectasis. Images read and reviewed by Alex Munoz MD on 04/08/2020. Name Value Range Interpretation Code Description Data Annabelle rce(s) Supporting Document(s ) ID Date Data Source [id number] 04/08/2020 07:03:00 AM EDT [facility] Name Value Range Interpretation Description Data Sup porting Code Source(s) Document(s ) WHITE BLOOD 4.7 3.5-9.1 Normal (applies [facility] COUNT 10(3)/uL to non-numeric Hospital results) RED BLOOD COUNT 2.82 4.30-5.[address] [facility] ayes 10(6)/uL 0 Hospital HEMOGLOBIN 8.5 g/dL 13.3-16. Below low normal [facility] 2 [facility] HEMATOCRIT 26.6 % 38.8-46. Below low normal [address] MEAN 94 fl 79-93 Above high normal [facility] CORPUSCULAR Hospital VOLUME MEAN 30 pg 27-32 Normal (applies [facility] CORPUSCULAR to non-numeric Hospital HEMOGLOBIN results) MEAN 32 g/dl 32-36 Normal (applies [facility] CORPUSCULAR HGB to non-numeric Hospital CONC results) RED CELL 18.4 % 0.0-14.5 Above high normal [facility] DISTRIBUTION Hospital WIDTH PLATELET COUNT [phone] Normal (applies [facility] 10(3)/uL to non-numeric Hospital results) MEAN PLATELET 10.4 fl 9.0-13.0 Normal (applies Arina Rhiannon s VOLUME to non-numeric Hospital results) ID Date Data Source [id number] 04/08/2020 07:03:00 AM EDT [facility] Name Value Range Interpretation Description Data Sup porting Code Source(s) Document(s ) VALPROIC 25.3 50.0-100. Below low normal [facility] ACID ug/mL 0 Hospital (DEPAKENE) LEVEL ID Date Data Source [id number] 04/08/2020 07:03:00 AM EDT [facility] Name Value Range Interpretation Description Data Sup porting Code Source(s) Document(s ) BLOOD UREA 23 mg/dL 7-18 Above high normal [facility] NITROGEN Hospital CREATININE 0.81 0.70-1.3 Normal (applies [facility] mg/dL 0 to non-numeric Hospital results) SODIUM LEVEL 134 136-145 Below low normal [facility] s mmol/L Hospital POTASSIUM 4.1 3.5-5.1 [facility] to [facility] results) BUN/CREATININE 28.3 12.0-20. Above high normal [facility] RATIO 0 Hospital EST GLOMERULAR > 60.0 > 60 [facility] FILTRATION mL/min/ mL/min Hospital RATE GFR ESTIMATE MDRD Equation (Modification of Diet in RenalDisease). Reference range is >= 60mL/min/1.73m2 If patient is Afri can Citizen [place], multiply printed result by1.21NOTE: A calculated eGFR of <60 woods ggests chronic kidneydisease, but only if found consistently over at least 3months . A calculated result of <15 is consistent with renalfailure. CREATININE CLEARANCE CALC 73.00 mL/min > 60 mL/min [facility] Medication dose adjustment may be needed for CrCl< 60 mL/min.The estimated creatinine clearance (CRCL) is calculatedusing the Cockcroft-Gault (C-G) equation, which utilizesserum creatinine, gender, and jesus dy weight (Cockcroft DW,Gault MH. Prediction of creatinine clearance from serumcreati nine. Nephron 1976; 16(1):31-41). The C-G equationoverestimates GFR because of the tubular secretion ofcreatinine and the values are not adjusted for body-surface area.Please note that the C-G equation may be limited in thesetting of extremes of mus eusebio mass (e.g. obesity oratrophy),extremes of age, malnutrition, liver disease,advance d renal failure, and unstable renal function. ID Date Data Source [id number] 04/04/2020 08:48:00 AM EDT [facility] Name Value Range Interpretation Description Data Sup porting Code Source(s) Document(s ) BLOOD UREA 35 mg/dL 7-18 Above high normal [facility] NITROGEN [facility] CREATININE 1.01 0.70-1.3 Normal (applies [facility] mg/dL 0 to non-numeric Hospital results) SODIUM LEVEL 133 136-145 Below low normal [facility] s mmol/L Hospital POTASSIUM 4.3 3.5-5.1 Normal (applies [facility] LEVEL mmol/L to non-numeric Hospital results) BUN/CREATININE 34.6 12.0-20. Above high normal [facility] ayes RATIO 0 Hospital EST GLOMERULAR > 60.0 > 60 [facility] FILTRATION mL/min/ mL/min Hospital RATE GFR ESTIMATE MDRD Equation (Modification of Diet in RenalDisease). Reference range is >= 60mL/min/1.73m2 If patient is Afri can Citizen [place], multiply printed result by1.21NOTE: A calculated eGFR of <60 woods ggests chronic kidneydisease, but only if found consistently over at least 3months . A calculated result of <15 is consistent with renalfailure. CREATININE CLEARANCE CALC 64.28 mL/min > 60 mL/min [facility] Medication dose adjustment may be needed for CrCl< 60 mL/min.The estimated creatinine clearance (CRCL) is calculatedusing the Cockcroft-Gault (C-G) equation, which utilizesserum creatinine, gender, and jesus dy weight (Cockcroft DW,Gault MH. Prediction of creatinine clearance from serumcreati nine. Nephron 1976; 16(1):31-41). The C-G equationoverestimates GFR because of the tubular secretion ofcreatinine and the values are not adjusted for body-surface area.Please note that the C-G equation may be limited in thesetting of extremes of mus eusebio mass (e.g. obesity oratrophy),extremes of age, malnutrition, liver disease,advance d renal failure, and unstable renal function. ID Date Data Source [id number] 04/04/2020 08:48:00 AM EDT [facility]ital Name Value Range Interpretation Description Data Sup porting Code Source(s) Document(s ) WHITE BLOOD 6.7 3.5-9.1 Normal (applies [facility] COUNT 10(3)/uL to non-numeric Hospital results) RED BLOOD COUNT 2.78 4.30-5.[address] [facility] ayes 10(6)/uL 0 Hospital HEMOGLOBIN 8.3 g/dL 13.3-16. Below low normal [facility] 2 [facility] HEMATOCRIT 25.9 % 38.8-46. Below low normal [address] MEAN 93 fl 79-93 Normal (applies [facility] CORPUSCULAR to non-numeric Hospital VOLUME results) MEAN 30 pg 27-32 Normal (applies [facility] CORPUSCULAR to non-numeric Hospital HEMOGLOBIN results) MEAN 32 g/dl 32-36 Normal (applies [facility] CORPUSCULAR HGB to non-numeric Hospital CONC results) RED CELL 19.3 % 0.0-14.5 Above high normal [facility] DISTRIBUTION [facility] WIDTH PLATELET COUNT [phone] Normal (applies [facility] es 10(3)/uL to non-numeric Hospital results) MEAN PLATELET 10.4 fl 9.0-13.0 Normal (applies [facility] s VOLUME to non-numeric Hospital results) ID Date Data Source [id number] 04/03/2020 09:58:00 AM EDT [facility] MBS VIDEO FLUOROSCOPY (04/02/2020) Clinical Indication: Dysphagia. Video swallow examination was performed on 04/02 in association with the speech pathologist. Various consistencies of fo od and liquid, mixed with barium were utilized. IMPRESSION: Status post video swallowing examination. Please see the official report, recommendations and str ategies reviewed and reported by the performing speech pathologist. Fluor oscopy time: 02:26 minutes. Spot films: 1 Images read and reviewed by Harlan tamayo MD on 04/03/2020. Name Value Range Interpretation Code Description Data Annabelle rce(s) Supporting Document(s ) ID Date Data Source [id number] 04/03/2020 06:40:00 AM EDT [facility] Name Value Range Interpretation Description Data Sup porting Code Source(s) Document(s ) WHITE BLOOD 5.6 3.5-9.1 Normal (applies [facility] COUNT 10(3)/uL to non-numeric Hospital results) RED BLOOD COUNT 2.71 4.30-5.6 Below low normal [place] [facility] 10(6)/uL 0 Hospital HEMOGLOBIN 8.2 g/dL 13.3-16. Below low normal [address] HEMATOCRIT 25.1 % 38.8-46. Below low normal [address] MEAN 93 fl 79-93 Normal (applies [facility] CORPUSCULAR to non-numeric Hospital VOLUME results) MEAN 30 pg 27-32 Normal (applies [facility] CORPUSCULAR to non-numeric Hospital HEMOGLOBIN results) MEAN 33 g/dl 32-36 Normal (applies [facility] CORPUSCULAR HGB to non-[facility] Hospital CONC results) RED CELL 19.1 % 0.0-14.5 Above high normal [facility] WIDTH PLATELET COUNT [phone] Normal (applies [facility] es 10(3)/uL to non-numeric Hospital results) MEAN PLATELET 10.5 fl 9.0-13.0 Normal (applies [facility] VOLUME to non-numeric Hospital results) NEUTROPHILS % 83.0 % [facility] IMMATURE 0.4 % [facility] GRANULOCYTE % Hospital LYMPH % 5.5 % [facility] MONO % 10.9 % [facility] EOS % 0.0 % [facility] BASO % 0.2 % [facility] NEUTROPHILS # 4.66 1.42-6.3 Normal (applies [facility] s 10(3)/uL 4 to non-numeric Hospital results) IMMATURE 0.02 0.00-0.4 Normal (applies [facility] GRANULOCYTE # 10(3)/uL 5 to non-numeric Hospital results) LYMPH # 0.31 0.71-4.5 Below low normal [facility] 10(3)/uL 3 Hospital MONO # 0.61 0.14-0.7 Normal (applies [facility] 10(3)/uL 2 to non-numeric Hospital results) EOS # 0.00 0.00-0.5 Normal (applies [facility] 10(3)/uL 4 to non-numeric Hospital results) BASO # 0.01 0.00-0.1 Normal (applies [facility] 10(3)/uL 8 to non-numeric Hospital results) ID Date Data Source [id number] 04/01/2020 10:58:00 AM EDT [facility] CHEST X-RAY (04/01/2020) History: Pneumonia. Technique: Frontal view of the chest. Prior: 03/26/2020. Fi ndings: There is a tracheostomy tube. There is a patchy infiltrate in the right lowe r lobe. Theleft diaphragm is obscured which may indicate an underlying effusion with infiltrate or atelectasis. There is cardiomegaly. IMPRESSION: Increased markings in the right lower lobe new from prior may represent infiltrate or atelec tasis. Continued obscuration left diaphragm which may represent an effusion with inf iltrate or atelectasis. Images read and reviewed by Harlan Sarabia MD on 04/01. Name Value Range Interpretation Code Description Data Annabelle rce(s) Supporting Document(s ) ID Date Data Source [id number] 04/01/2020 07:20:00 AM EDT [facility] Name Value Range Interpretation Description Data Sup porting Code Source(s) Document(s ) VALPROIC 18.1 50.0-100. Below low normal [facility] ACID ug/mL 0 Hospital (DEPAKENE) LEVEL ID Date Data Source [id number] 04/01/2020 07:20:00 AM EDT [facility] Name Value Range Interpretation Description Data Sup porting Code Source(s) Document(s ) BLOOD UREA 23 mg/dL 7-18 Above high normal [facility] NITROGEN Hospital CREATININE 0.90 0.70-1.3 Normal (applies [facility] mg/dL 0 to non-numeric Hospital results) SODIUM LEVEL 133 136-145 Below low normal [facility] mmol/L Hospital POTASSIUM 4.2 3.5-5.1 Normal (applies [facility] LEVEL mmol/L to non-numeric Hospital results) BUN/CREATININE 25.5 12.0-20. Above high normal [facility] RATIO 0 Hospital EST GLOMERULAR > 60.0 > 60 [facility] FILTRATION mL/min/ mL/min Hospital RATE GFR ESTIMATE MDRD Equation (Modification of Diet in RenalDisease). Reference range is >= 60mL/min/1.73m2 If patient is Afri [place] Citizen [place], multiply printed result by1.21NOTE: A calculated eGFR of <60 woods ggests chronic kidneydisease, but only if found consistently over at least 3months . A calculated result of <15 is consistent with renalfailure. CREATININE CLEARANCE CALC 72.74 mL/min > 60 mL/min [facility] Medication dose adjustment may be needed for CrCl< 60 mL/min.The estimated creatinine clearance (CRCL) is calculatedusing the Cockcroft-Gault (C-G) equation, which utilizesserum creatinine, gender, and jesus dy weight (Cockcroft DW,Gault MH. Prediction of creatinine clearance from serumcreati nine. Nephron 1976; 16(1):31-41). The C-G equationoverestimates GFR because of the tubular secretion ofcreatinine and the values are not adjusted for body-surface area.Please note that the C-G equation may be limited in thesetting of extremes of mus eusebio mass (e.g. obesity oratrophy),extremes of age, malnutrition, liver disease,advance d renal failure, and unstable renal function. ID Date Data Source [id number] 04/01/2020 07:20:00 AM EDT [facility] Name Value Range Interpretation Description Data Sup porting Code Source(s) Document(s ) WHITE BLOOD 5.2 3.5-9.1 Normal (applies [facility] COUNT 10(3)/uL to non-numeric Hospital results) RED BLOOD COUNT 2.68 4.30-5.6 Below low normal [facility] 10(6)/uL 0 Hospital HEMOGLOBIN 7.9 g/dL 13.3-16. Below low normal [address] HEMATOCRIT 25.1 % 38.8-46. Below low normal [address] MEAN 94 fl 79-93 Above high normal [facility] CORPUSCULAR Hospital VOLUME MEAN 30 pg 27-32 Normal (applies [facility] CORPUSCULAR to non-numeric Hospital HEMOGLOBIN results) MEAN 32 g/dl 32-36 Normal (applies [facility] CORPUSCULAR HGB to non-numeric Hospital CONC results) RED CELL 19.9 % 0.0-14.5 Above high normal [facility] DISTRIBUTION Hospital WIDTH PLATELET COUNT [phone] Normal (applies [facility] es 10(3)/uL to non-numeric Hospital results) MEAN PLATELET 11.2 fl 9.0-13.0 Normal (applies [facility] s VOLUME to non-numeric Hospital results) ID Date Data Source [id number] 03/31/2020 08:41:00 AM EDT [facility] Name Value Range Interpretation Code Description Data Annabelle rce(s) Supporting Document(s ) GLUCOSE 95 mg/dL 74-100 Normal (applies to [facility] non-numeric Hospital results) "Assay results affected by Sulfasalazine therapy. If thepatient is taking this drug, please contact the laboratory". BLOOD UREA NITROGEN 19 mg/dL 7-18 Above high normal [facility] CREATININE 0.92 mg/dL 0.70-1.30 Normal (applies to [facility] non-numeric results) SODIUM LEVEL 132 mmol/L 136-145 Below low normal [facility] POTASSIUM LEVEL 4.3 mmol/L 3.5-5.1 Normal (applies to [facility] non-numeric results) CHLORIDE LEVEL 94 mmol/L 98-107 Below low normal [facility] Hospital CARBON DIOXIDE LEVEL 36 mmol/L 21-32 Above high normal [facility] ANION GAP 2 mmol/L 2-8 Normal (applies to [facility] non-numeric results) CALCULATED RESULT BUN/CREATININE RATIO 20.6 12.0-20.0 Above high [facility] yes normal Hospital EST GLOMERULAR > 60.0 > 60 mL/min [facility] FILTRATION RATE mL/min/ Hospital GFR ESTIMATE MDRD Equation (Modification of Diet in RenalDisease). Reference range is >= 60mL/min/1.73m2 If patient is Afri can Citizen [place], multiply printed result by1.21NOTE: A calculated eGFR of <60 woods ggests chronic kidneydisease, but only if found consistently over at least 3months . A calculated result of <15 is consistent with renalfailure. CREATININE CLEARANCE CALC 71.16 mL/min > 60 mL/min [facility] Medication dose adjustment may be needed for CrCl< 60 mL/min.The estimated creatinine clearance (CRCL) is calculatedusing the Cockcroft-Gault (C-G) equation, which utilizesserum creatinine, gender, and jesus dy weight (Cockcroft DW,Gault MH. Prediction of creatinine clearance from serumcreati nine. Nephron 1976; 16(1):31-41). The C-G equationoverestimates GFR because of the tubular secretion ofcreatinine and the values are not adjusted for body-surface area.Please note that the C-G equation may be limited in thesetting of extremes of mus eusebio mass (e.g. obesity oratrophy),extremes of age, malnutrition, liver disease,advance d renal failure, and unstable renal function. OSMOLALITY CALCULATED 266 280-301 Below low normal [facility] CALCULATED RESULT ID Date Data Source [id number] 03/31/2020 08:41:00 AM EDT [facility] Name Value Range Interpretation Description Data Sup porting Code Source(s) Document(s ) WHITE BLOOD 6.7 3.5-9.1 Normal (applies [facility] COUNT 10(3)/uL to non-numeric Hospital results) RED BLOOD COUNT 2.94 4.30-5.[address] [facility] ayes 10(6)/uL 0 Hospital HEMOGLOBIN 8.8 g/dL 13.3-16. Below low normal [address] HEMATOCRIT 27.4 % 38.8-46. Below low normal [address] MEAN 93 fl 79-93 Normal (applies [facility] CORPUSCULAR to non-numeric Hospital VOLUME results) MEAN 30 pg 27-32 Normal (applies [facility] CORPUSCULAR to non-numeric Hospital HEMOGLOBIN results) MEAN 32 g/dl 32-36 Normal (applies [facility] CORPUSCULAR HGB to non-numeric Hospital CONC results) RED CELL 20.1 % 0.0-14.5 Above high normal [facility] WIDTH PLATELET COUNT [phone] Normal (applies [facility] es 10(3)/uL to non-numeric Hospital results) MEAN PLATELET 10.7 fl 9.0-13.0 Normal (applies [facility] s VOLUME to non-numeric Hospital results) NEUTROPHILS % 75.6 % [facility] IMMATURE 0.4 % [facility] GRANULOCYTE % Hospital LYMPH % 7.5 % [facility] MONO % 15.1 % [facility] EOS % 1.0 % [facility] BASO % 0.4 % [facility] NEUTROPHILS # 5.05 1.42-6.3 Normal (applies [facility] s 10(3)/uL 4 to non-numeric Hospital results) IMMATURE 0.03 0.00-0.4 Normal (applies [facility] GRANULOCYTE # 10(3)/uL 5 to non-numeric Hospital results) LYMPH # 0.50 0.71-4.5 Below low normal [facility] 10(3)/uL 3 Hospital MONO # 1.01 0.14-0.7 [facility] EOS # 0.07 0.00-0.5 [facility] 10([facility]uL 4 to non-numeric Hospital results) BASO # 0.03 0.00-0.1 Normal (applies [facility] 10(3)/uL 8 to non-numeric Hospital results) ID Date Data Source [id number] 03/31/2020 06:00:00 AM EDT [facility] What is the Source [place] PORT[place]ications for Urine Screen Metabolic Change Name Value Range Interpretation Description Data Sup porting Code Source(s) Document(s ) COLOR, URINE YELLOW STRAW [facility] APPEARANCE, CLEAR CLEAR [facility] GLUCOSE, NEG NEG [facility] URINE (UA) [facility] BILIRUBIN, NEG NEG [facility] URINE [facility] KETONE, URINE NEG NEG [facility] UROBILINOGEN, 0.2 EU/dL 0.0-0.5 Normal (applies [facility] s URINE to non-numeric Hospital results) SPECIFIC 1.010 1.001-1. Normal (applies [facility] GRAVITY,URINE 035 to non-numeric Hospital results) OCCULT BLOOD NEG NEG [facility] PH Urine 8.5 U 4.6-8.0 Above high normal [facility] PROTEIN, TRACE NEG Abnormal (applies [facility] URINE to non-numeric Hospital results) NITRITE, NEG NEG [facility] URINE [facility] URINE NEG NEG [facility] LEUKOCYTE Hospital ESTERASE ID Date Data Source [id number] 03/29/2020 11:21:00 AM EDT [facility] X-RAY RIGHT HIP AND PELVIS-3 VIEWS () History: Right hemiparesis. There is no evidence of fracture, disloc ation, subluxation, arthritis or radiographic evidence of avascular necrosis. Ther e is demineralization, surgical clips overlying the pelvis, a coil overlying t he left groin, a catheter in the bladder or rectum, levoscoliosis, disc space narrow ing of the lower lumbar spine andcalcified atherosclerosis. The left hip and remain jon of the pelvis appear to be grossly normal. IMPRESSION: No evidence of acute pathology. Demineralization. Disc space narrowing and levoscoliosis of the lumba r spine. Calcified atherosclerosis. Images read and reviewed by Alex rowland MD on 03/28/2020. Name Value Range Interpretation Code Description Data Annabelle rce(s) Supporting Document(s ) ID Date Data Source [id number] 03/29/2020 11:04:00 AM EDT [facility] RIGHT SH[facility]- 6 VIEWS (03/27/20) History: Subluxation. Hemiparesis. There appears to be demineralization. Th e right shoulder may be stuck in internal rotation. It has the same appearance on the chest x-ray dated 03/13/2020. There is no evidence of fracture, dislocation, sublu xation, arthritis, calcified bursitis, calcified tendinitis or focal destructiv e lesion. The bony structures, soft tissues and joint spaces are within the limits o f normal. IMPRESSION: No evidence of subluxation. Right shoulder possibly natalya ck in internal rotation. Demineralization. Images read and reviewed by Alex shields MD on 03/28/2020. Name Value Range Interpretation Code Description Data [facility] rce(s) Supporting Document(s ) ID Date Data Source [id number] 03/28/2020 07:50:00 AM EDT [facility] Name Value Range Interpretation Description Data Sup porting Code Source(s) Document(s ) BLOOD UREA 16 mg/dL 7-18 Normal (applies [facility] NITROGEN to non-numeric Hospital results) CREATININE 0.84 0.70-1.3 Normal (applies [facility] mg/dL 0 to non-numeric Hospital results) SODIUM LEVEL 133 136-145 Below low normal [facility] mmol/L Hospital POTASSIUM 3.9 3.5-5.1 Normal (applies [facility] LEVEL mmol/L to non-numeric Hospital results) BUN/CREATININE 19.0 12.0-20. Normal (applies [facility] RATIO 0 to non-numeric Hospital results) EST GLOMERULAR > 60.0 > 60 [facility] FILTRATION mL/min/ mL/min Hospital RATE GFR ESTIMATE MDRD Equation (Modification of Diet in RenalDisease). Reference range is >= 60mL/min/1.73m2 If patient is Afri can Citizen Of [place], multiply printed result by1.21NOTE: A calculated eGFR of <60 woods ggests chronic kidneydisease, but only if found consistently over at least 3months . A calculated result of <15 is consistent with renalfailure. CREATININE CLEARANCE CALC 78.47 mL/min > 60 mL/min [facility] Medication dose adjustment may be needed for CrCl< 60 mL/min.The estimated creatinine clearance (CRCL) is calculatedusing the Cockcroft-Gault (C-G) equation, which utilizesserum creatinine, gender, and jesus dy weight (Cockcroft DW,Gault MH. Prediction of creatinine clearance from serumcreati nine. Nephron 1976; 16(1):31-41). The C-G equationoverestimates GFR because of the tubular secretion ofcreatinine and the values are not adjusted for body-surface area.Please note that the C-G equation may be limited in thesetting of extremes of mus eusebio mass (e.g. obesity oratrophy),extremes of age, malnutrition, liver disease,advance d renal failure, and unstable renal function. ID Date Data Source [id number] 03/28/2020 07:50:00 AM EDT [facility] Name Value Range Interpretation Description Data Sup porting Code Source(s) Document(s ) WHITE BLOOD 5.5 3.5-9.1 Normal (applies [facility] COUNT 10(3)/uL to non-numeric Hospital results) RED BLOOD 2.54 4.30-5.6 Below low normal [facility] COUNT 10(6)/uL 0 [facility] HEMOGLOBIN 7.4 g/dL 13.3-16. Below lower panic [facility] 2 limits Hospital SPOKE TO LUCY THOMAS 0919 020READ BACK AND VERIFIED HEMATOCRIT 23.4 % 38.8-46.4 Below low normal [facility] MEAN CORPUSCULAR VOLUME 92 fl 79-93 Normal [facility]) MEAN CORPUSCULAR 29 pg 27-32 Normal (applies [facility] HEMOGLOBIN to non-numeric Hospital results) MEAN CORPUSCULAR HGB 32 g/dl 32-36 Normal (applies [facility] to non-numeric Hospital results) RED CELL DISTRIBUTION 19.4 % 0.0-14.5 Above high normal [facility] PLATELET COUNT 204 10(3)/uL 165-415 Normal (applies [facility] to non-numeric Hospital results) MEAN PLATELET VOLUME 11.4 fl 9.0-13.0 Normal (applies [facility] to non-numeric Hospital results) ID Date Data Source [id number] 03/27/2020 01:13:00 PM EDT [facility] VENOUS DUPLEX DOPPLER ULTRASOUND - RIG HT LOWER EXTREMITY (03/27/2020) History: Swelling. Prior: None. Findings: There is no evidence for deep venous thrombosis of the right lower extremity. Normal augmentation and compression is demonstrated from the common femoral vei n to the popliteal vein. The calf veins are patent to the midcalf. The left comm on femoral vein is patent with normal augmentation and compression. There is a 6.9 x 2.3cm avascular hypoechoic structure in the mid right thigh. IMP RESSION: No evidence for a DVT of the right lower extremity. 6.9 x 2.3cm avascular hypoechoic structure in the mid right thigh that could represent a hematoma. Sonogr aphic surveillance is advised. If this structure persists then an MRI of the le g with contrast would be recommended. Images read and reviewed by Ezequiel Bhatt MD on 03/27/2020. Name Value Range Interpretation Code Description Data Annabelle rce(s) Supporting Document(s ) ID Date Data Source [id number] 03/27/2020 10:00:00 AM EDT [facility] Name Value Range Interpretation Code Description Data Annabelle rce(s) Supporting Document(s ) STOOL OCCULT NEG NEG [facility] ID Date Data Source [id number] 03/26/2020 01:36:00 PM EDT [facility] Name Value Range Interpretation Code Description Data Annabelle rce(s) Supporting Document(s ) STOOL OCCULT NEG NEG [facility] ID Date Data Source [id number] 03/26/2020 12:25:00 PM EDT [facility] CHEST X-RAY (03/26/2020) History: Cough. Pneumonia. Prior: 03/20/2020. Findings: The heart is enlarged. Trach eostomy tube noted. Improved previously seen right lower lobe lung infiltrate. Left retrocardiac location is again not well defined. No evidence of CHF. Stable sm all right pleural effusion. IMPRESSION: Improved right lower lobe infiltrate. S table right pleural effusion. Left lower lobe is not well defined due to a combin ation of enlarged heart and body habitus. Images read and reviewed by Juan easley MD on 03/26/2020. Name Value Range Interpretation Code Description Data Annabelle rce(s) Supporting Document(s ) ID Date Data Source [id number] 03/26/2020 07:29:00 AM EDT [facility] Name Value Range Interpretation Code Description Data Annabelle rce(s) Supporting Document(s ) D-DIMER,Q 3.70 <0.50 Abnormal (applies [facility] UANTITATI mcg/mL FEU to non-[facility] VE results) The D-Dimer test is used frequently to e xclude an acutePE or DVT. In patients with a low to moderate clinical riskassessment and a D-Dimer result <0.50 mcg/mL FEU, thelikelihood of a PE or DVT is very low . However, a thrombo-embolic event should not be excluded solely on the basis ofthe D- Dimer level. Increased levels of D-Dimer are associatedwith a PE, DVT, DIC, malignanc ies, inflammation, sepsis,surgery, trauma, , and advancing patient age.[BIBI WARE 2006 11:295(2):199-207]For additional information, please refer to:[email or web address](This link is being provided for informational /educationalpurposes only)Test performed by:[place], [place] [id number] Toribio M.D. ID Date Data Source [id number] 03/26/2020 07:29:00 AM EDT [facility] Name Value Range Interpretation Code Description Data Annabelle rce(s) Supporting Document(s ) GLUCOSE 102 mg/dL 74-100 Above high normal [facility] "Assay results affected by Sulfasalazine therapy. If thepatient is taking this drug, please contact the laboratory". BLOOD UREA NITROGEN 18 mg/dL 7-18 Normal (applies to [facility] non-numeric results) Hospital CREATININE 0.75 mg/dL 0.70-1.30 Normal (applies to [facility] non-numeric results) Hospital SODIUM LEVEL 135 mmol/L 136-145 Below low normal [facility] POTASSIUM LEVEL 3.6 mmol/L 3.5-5.1 Normal (applies to [facility] non-numeric results) Hospital CHLORIDE LEVEL 100 mmol/L 98-107 Normal (applies to [facility] non-numeric results) Hospital CARBON DIOXIDE LEVEL 31 mmol/L 21-32 Normal (applies to [facility] non-numeric results) Hospital ANION GAP 4 mmol/L 2-8 Normal (applies to [facility] non-numeric results) Hospital CALCULATED RESULT BUN/CREATININE RATIO 24.0 12.0-20.0 Above high [facility] yes normal Hospital EST GLOMERULAR > 60.0 > 60 mL/min [facility] FILTRATION RATE mL/min/ Hospital GFR ESTIMATE MDRD Equation (Modification of Diet in RenalDisease). Reference range is >= 60mL/min/1.73m2 If patient is Afri can Citizen [place], multiply printed result by1.21NOTE: A calculated eGFR of <60 woods ggests chronic kidneydisease, but only if found consistently over at least 3months . A calculated result of <15 is consistent with renalfailure. CREATININE CLEARANCE CALC 82.39 mL/min > 60 mL/min [facility] Medication dose adjustment may be needed for CrCl< 60 mL/min.The estimated creatinine clearance (CRCL) is calculatedusing the Cockcroft-Gault (C-G) equation, which utilizesserum creatinine, gender, and jesus dy weight (Cockcroft DW,Gault MH. Prediction of creatinine clearance from serumcreati nine. Nephron 1976; 16(1):31-41). The C-G equationoverestimates GFR because of the tubular secretion ofcreatinine and the values are not adjusted for body-surface area.Please note that the C-G equation may be limited in thesetting of extremes of mus eusebio mass (e.g. obesity oratrophy),extremes of age, malnutrition, liver disease,advance d renal failure, and unstable renal function. OSMOLALITY CALCULATED 272 280-301 Below low normal [facility] CALCULATED RESULT ID Date Data Source [id number] 03/26/2020 07:29:00 AM EDT [facility] Name Value Range Interpretation Description Data Sup porting Code Source(s) Document(s ) PROTHROMBIN 10.9 9.4-11.5 Normal (applies [facility] TIME (PATIENT) SECONDS to non-numeric Hospital results) INR 1.05 [facility] INR RANGE IS DIAGNOSIS SPECIFICINR VALUE S <1.5 ARE NON-THERAPEUTICFOR INR >1.5, CONSULT MD ORDERS ID Date Data Source [id number] 03/26/2020 07:29:00 AM EDT [facility] Name Value Range Interpretation Description Data Sup porting Code Source(s) Document(s ) PARTIAL 26.7 20.6-31 Normal (applies [facility] THROMBOPLASTIN SECONDS .9 to non-numeric Hospital TIME results) ID Date Data Source [id number] 03/26/2020 07:29:00 AM EDT [facility] Name Value Range Interpretation Description Data Sup porting Code Source(s) Document(s ) WHITE BLOOD 4.8 3.5-9.1 Normal (applies [facility] COUNT 10(3)/uL to non-numeric Hospital results) RED BLOOD 2.28 4.30-5.6 Below low normal [facility] COUNT 10(6)/uL 0 Hospital HEMOGLOBIN 6.8 g/dL 13.3-16. Below lower panic [facility] 2 limits [facility] READ BACK AND VERIFIED BY JUAN ROGERS 834 AM.RESULTS REPEATED AND VERIFIED. HEMATOCRIT 20.4 % 38.8-46.4 Below lower panic limits [facility] READ BACK AND VERIFIED BY JUAN ROGERS 834 AM.RESULTS REPEATED AND VERIFIED. MEAN CORPUSCULAR 90 fl 79-93 Normal (applies to [facility] VOLUME non-numeric results) [facility] MEAN CORPUSCULAR 30 pg 27-32 Normal (applies to [facility] HEMOGLOBIN non-numeric results) [facility] MEAN CORPUSCULAR HGB 33 g/dl 32-36 Normal (applies to [facility] CONC non-numeric results) [facility] RED CELL DISTRIBUTION 18.7 % 0.0-14.5 Above high normal [facility] WIDTH [facility] PLATELET COUNT 176 10(3)/uL 165-415 Normal (applies to [facility] non-numeric results) Hospital MEAN PLATELET VOLUME 11.8 fl 9.0-13.0 Normal (applies to [facility] non-numeric results) Hospital ID Date Data Source [id number] 03/25/2020 07:30:00 PM EDT [facility] Name Value Range Interpretation Code Description Data Annabelle rce(s) Supporting Document(s ) STOOL OCCULT NEG NEG [facility] BLOOD Hospital ID Date Data Source [id number] 03/25/2020 02:11:00 PM EDT [facility] Name Value Range Interpretation Description Data Sup porting Code Source(s) Document(s ) ERYTHROCYTE 63 mm/hr 0-20 Above high normal [facility] SEDIMENTATION Hospital RATE ID Date Data Source [id number] 03/25/2020 02:11:00 PM EDT [facility] Name Value Range Interpretation Description Data Sup porting Code Source(s) Document(s ) C-REACTIVE 0.41 0.0-0.3 Above high normal [facility] PROTEIN INF mg/dL Hospital ID Date Data Source [id number] 03/25/2020 02:11:00 PM EDT [facility] Name Value Range Interpretation Description Data Sup porting Code Source(s) Document(s ) WHITE BLOOD 7.8 3.5-9.1 Normal (applies [facility] COUNT 10(3)/uL to non-numeric Hospital results) RED BLOOD COUNT 2.59 4.30-5.6 Below low normal [facility] 10(6)/uL 0 Hospital HEMOGLOBIN 7.6 g/dL 13.3-16. Below low normal [facility] 2 [facility] HEMATOCRIT 23.2 % 38.8-46. Below low normal [facility] 4 [facility] MEAN 90 fl 79-93 Normal (applies [facility] CORPUSCULAR to non-numeric Hospital VOLUME results) MEAN 29 pg 27-32 Normal (applies [facility] CORPUSCULAR to non-numeric Hospital HEMOGLOBIN results) MEAN 33 g/dl 32-36 Normal (applies [facility] CORPUSCULAR HGB to non-numeric Hospital CONC results) RED CELL 18.5 % 0.0-14.5 Above high normal [facility] DISTRIBUTION Hospital WIDTH PLATELET COUNT 191 165-415 Normal (applies [facility] 10(3)/uL to non-numeric Hospital results) MEAN PLATELET 10.8 fl 9.0-13.0 Normal (applies [facility] s VOLUME to non-numeric Hospital results) ID Date Data Source [id number] 03/25/2020 08:52:00 AM EDT [facility] Name Value Range Interpretation Description Data Sup porting Code Source(s) Document(s ) BLOOD UREA 19 mg/dL 7-18 Above high normal [facility] NITROGEN Hospital CREATININE 0.82 0.70-1.3 Normal (applies [facility] mg/dL 0 to non-numeric Hospital results) SODIUM LEVEL 135 136-145 Below low normal [facility] s mmol/L Hospital RESULTS REPEATED AND VERIFIED. POTASSIUM LEVEL 3.7 mmol/L 3.5-5.1 Normal (applies to [facility] non-numeric Hospital results) BUN/CREATININE 23.1 12.0-20.[address] [facility] ayes RATIO Hospital EST GLOMERULAR > 60.0 mL/min/ > 60 mL/min [facility] yes FILTRATION RATE [facility] GFR ESTIMATE MDRD Equation (Modification of Diet in RenalDisease). Reference range is >= 60mL/min/1.73m2 If patient is Afri can Citizen [place], multiply printed result by1.21NOTE: A calculated eGFR of <60 woods ggests chronic kidneydisease, but only if found consistently over at least 3months . A calculated result of <15 is consistent with renalfailure. CREATININE CLEARANCE CALC 80.38 mL/min > 60 mL/min [facility] Medication dose adjustment may be needed for CrCl< 60 mL/min.The estimated creatinine clearance (CRCL) is calculatedusing the Cockcroft-Gault (C-G) equation, which utilizesserum creatinine, gender, and jesus dy weight (Cockcroft DW,Gault MH. Prediction of creatinine clearance from serumcreati nine. Nephron 1976; 16(1):31-41). The C-G equationoverestimates GFR because of the tubular secretion ofcreatinine and the values are not adjusted for body-surface area.Please note that the C-G equation may be limited in thesetting of extremes of mus eusebio mass (e.g. obesity oratrophy),extremes of age, malnutrition, liver disease,advance d renal failure, and unstable renal function. ID Date Data Source [id number] 03/25/2020 08:52:00 AM EDT [facility] Name Value Range Interpretation Description Data Sup porting Code Source(s) Document(s ) VALPROIC 20.3 50.0-100. Below low normal [facility] Hospital (DEPAKENE) LEVEL ID Date Data Source [id number] 03/25/2020 08:52:00 AM EDT [facility] Name Value Range Interpretation Description Data Sup porting Code Source(s) Document(s ) WHITE BLOOD 6.2 3.5-9.1 Normal (applies [facility] COUNT 10(3)/uL to non-numeric Hospital results) RED BLOOD 2.55 4.30-5.6 Below low normal [facility] COUNT 10(6)/uL 0 Hospital HEMOGLOBIN 7.3 g/dL 13.3-16. Below lower panic [facility] 2 limits Hospital SPOKE TO ASHER AKHTAR AT 0920 03/25/2020R EAD BACK AND VERIFIED HEMATOCRIT 22.8 % 38.8-46.4 Below low normal [facility] MEAN CORPUSCULAR VOLUME 89 fl 79-93 Normal (applies [facility] to non-numeric Hospital results) MEAN CORPUSCULAR 29 pg 27-32 Normal (applies [facility] HEMOGLOBIN to non-numeric Hospital results) MEAN CORPUSCULAR HGB 32 g/dl 32-36 Normal (applies [facility] CONC to non-numeric Hospital results) RED CELL DISTRIBUTION 18.5 % 0.0-14.5 Above high normal [facility] PLATELET COUNT 192 10(3)/uL 165-415 Normal (applies [facility] to non-numeric Hospital results) MEAN PLATELET VOLUME 11.4 fl 9.0-13.0 Normal (applies [facility] to non-numeric Hospital results) ID Date Data Source [id number] 03/21/2020 07:41:00 AM EDT [facility] Name Value Range Interpretation Description Data Sup porting Code Source(s) Document(s ) BLOOD UREA 40 mg/dL 7-18 Above high normal [facility] NITROGEN Hospital CREATININE 1.01 0.70-1.3 Normal (applies [facility] mg/dL 0 to non-numeric Hospital results) SODIUM LEVEL 145 136-145 Normal [facility]L to [facility] Hospital results) POTASSIUM 3.0 3.5-5.1 Below low normal [facility] LEVEL mmol/L Hospital BUN/CREATININE 39.6 12.0-20. Above high normal [facility] RATIO 0 Hospital EST GLOMERULAR > 60.0 > 60 [facility] FILTRATION mL/min/ mL/min Hospital RATE GFR ESTIMATE MDRD Equation (Modification of Diet in RenalDisease). Reference range is >= 60mL/min/1.73m2 If patient is Afri can Citizen [place], multiply printed result by1.21NOTE: A calculated eGFR of <60 woods ggests chronic kidneydisease, but only if found consistently over at least 3months . A calculated result of <15 is consistent with renalfailure. CREATININE CLEARANCE CALC 65.70 mL/min > 60 mL/min [facility] Medication dose adjustment may be needed for CrCl< 60 mL/min.The estimated creatinine clearance (CRCL) is calculatedusing the Cockcroft-Gault (C-G) equation, which utilizesserum creatinine, gender, and jesus dy weight (Cockcroft DW,Gault MH. Prediction of creatinine clearance from serumcreati nine. Nephron 1976; 16(1):31-41). The C-G equationoverestimates GFR because of the tubular secretion ofcreatinine and the values are not adjusted for body-surface area.Please note that the C-G equation may be limited in thesetting of extremes of mus eusebio mass (e.g. obesity oratrophy),extremes of age, malnutrition, liver disease,advance d renal failure, and unstable renal function. ID Date Data Source [id number] 03/21/2020 07:41:00 AM EDT [facility] Name Value Range Interpretation Description Data Sup porting Code Source(s) Document(s ) WHITE BLOOD 9.2 3.5-9.1 Above high normal [facility] COUNT 10(3)/uL [facility] RED BLOOD COUNT 2.65 4.30-5.6 Below low normal [facility] 10(6)/uL 0 Hospital HEMOGLOBIN 7.7 g/dL 13.3-16. Below low normal [address] HEMATOCRIT 24.2 % 38.8-46. Below low normal [address] MEAN 91 fl 79-93 Normal (applies [facility] CORPUSCULAR to non-numeric Hospital VOLUME results) MEAN 29 pg 27-32 Normal (applies [facility] CORPUSCULAR to non-numeric Hospital HEMOGLOBIN results) MEAN 32 g/dl 32-36 Normal (applies [facility] CORPUSCULAR HGB to non-numeric Hospital CONC results) RED CELL 18.9 % 0.0-14.5 Above high normal [facility] DISTRIBUTION Hospital WIDTH PLATELET COUNT [phone] Below low normal [facility] yes 10(3)/uL Hospital MEAN PLATELET 11.8 fl 9.0-13.0 Normal (applies [facility] s VOLUME to non-numeric Hospital results) ID Date Data Source [id number] 03/20/2020 10:14:00 AM EDT [facility] X-RAY CHEST (03/20/2020) History: Cough. Comparison: 03/12/2020 and 03/13/2020. The patient is again rota roby towards the left. The right lower lobe opacity is unchanged compared to 0. However, there appears to be a new small right pleural effusion. Until proven oth erwise, there is apparent retrocardiac left lower lobe atelectasis and/or an effusio n. No other change is noted. IMPRESSION: No significant change of right basal opa city. New small right pleural effusion. Apparent left lower lobe atelectasis/eff usion. Images read and reviewed by Alex Munoz MD on 03/20/2020. Name Value Range Interpretation Code Description Data Ann[facility] rce(s) Supporting Document(s ) ID Date Data Source [id number] 03/20/2020 09:20:00 AM EDT [facility] Room Air: Y Name Value Range Interpretation Description Data Sup porting Code Source(s) Document(s ) ARTERIAL 7.439 7.350-7. Normal (applies [facility] BLOOD GAS pH 450 to non-numeric Hospital results) ART BLD 33.0 mmHg 35-45 Below low normal [facility] PARTIAL Hospital PRESSURE CO2 ART BLD 88 mmHg 80-105 Normal (applies [facility] PARTIAL to non-numeric Hospital PRESSURE O2 results) ARTERIAL 22.4 meq/L 22-26 Normal (applies [facility] BLOOD GAS to non-numeric Hospital HCO3 results) ARTERIAL 2.0 -2.0-3.0 Normal (applies [facility] BLOOD GAS to non-[facility] BASE EXCESS results) ARTERIAL BLD 97.0 % 95-98 Normal (applies [facility] GAS O2 to non-[facility] Hospital SATURATION results) MODALITY T/C [facility] ARTERIAL 28.0 % [facility] BLOOD GAS Hospital FIO2 ARTERIAL LEFT RADIAL [facility] BLOOD GAS Hospital DRAW SITE MODIFIED POSITIVE [facility]S TEST Hospital ID Date Data Source [id number] 03/20/2020 06:59:00 AM EDT [facility] Name Value Range Interpretation Description Data Sup porting Code Source(s) Document(s ) WHITE 16.2 3.5-9.1 Above high normal [facility] BLOOD 10(3)/uL Hospital COUNT SPOKE TO DONA DYE 0918 03/20/20READ BACK AND VERIFIEDRESULTS REPEATED AND VERIFIED RED BLOOD COUNT 3.05 10(6)/uL 4.30-5.60 Below low normal [facility] HEMOGLOBIN 8.8 g/dL 13.3-16.2 Below low normal [facility] HEMATOCRIT 27.5 % 38.8-46.4 Below low normal [facility] MEAN CORPUSCULAR VOLUME 90 fl 79-93 Normal (applies [facility] to non[facility] Hospital results) MEAN CORPUSCULAR 29 pg 27-32 Normal (applies [facility] HEMOGLOBIN to non-numeric Hospital results) MEAN CORPUSCULAR HGB 32 g/dl 32-36 Normal (applies [facility] CONC to non-numeric Hospital results) RED CELL DISTRIBUTION 19.1 % 0.0-14.5 Above high [facility] PLATELET COUNT 155 10(3)/uL 165-415 Below low normal [facility] MEAN PLATELET VOLUME 12.1 fl 9.0-13.0 Normal (applies [facility] to non-numeric Hospital results) ID Date Data Source [id number] 03/20/2020 06:59:00 AM EDT [facility] Name Value Range Interpretation Description Data Sup porting Code Source(s) Document(s ) TOTAL CELLS 100 [facility] NEUTROPHILS 82.0 % [facility] BAND 1.0 % [facility] LYMPHOCYTE 6.0 % [facility] VARIANT LYMPHS 0.0 % [facility] MONOCYTE 8.0 % [facility] EOSINOPHIL 0.0 % [facility] BASOPHIL 0.0 % [facility] METAMYELOCYTE 2.0 % [facility] MYELOCYTE % 0.0 % [facility] PROMYELOCYTE 1.0 % [facility] BLAST 0.0 % [facility] PLASMA CELL 0.0 % [facility] NEUTROPHILS 13.45 1.42-6.3 Above high [facility] #MANUAL K/mm3 4 normal Hospital IMMATURE 0.49 0.00-0.4 Above high [facility] GRANULOCYTE K/mm3 5 normal Hospital #MANUAL LYMPH #MANUAL 0.97 0.71-4.5 Normal (applies [facility] s K/mm3 3 to non-numeric Hospital results) MONO #MANUAL 1.30 0.14-0.7 Above high [facility] K/mm3 2 [facility] EOS #MANUAL 0.00 0.00-0.5 Normal (applies [facility] K/mm3 4 to non-numeric Hospital results) BASO #MANUAL 0.00 0.00-0.1 Normal (applies [facility] K/mm3 8 to non-numeric Hospital results) NUCLEATED RED 1.0 [facility] BLOOD CELL [facility] ANISOCYTOSIS SLIGHT [facility] MICROCYTOSIS SLIGHT [facility] ID Date Data Source [id number] 03/20/2020 06:59:00 AM EDT [facility] o[facility]ital Name Value Range Interpretation Description Data Sup porting Code Source(s) Document(s ) PROTHROMBIN 10.6 9.4-11.5 Normal (applies [facility] TIME (PATIENT) SECONDS to non-numeric Hospital results) INR 1.02 [facility] INR RANGE IS DIAGNOSIS SPECIFICINR VALUE S <1.5 ARE NON-THERAPEUTICFOR INR >1.5, CONSULT MD ORDERS ID Date Data Source [id number] 03/20/2020 06:59:00 AM EDT [facility] Name Value Range Interpretation Code Description Data Annabelle rce(s) Supporting Document(s ) GLUCOSE 117 mg/dL 74-100 Above high normal [facility] "Assay results affected by Sulfasalazine therapy. If thepatient is taking this drug, please contact the laboratory". BLOOD UREA NITROGEN 51 mg/dL 7-18 Above high normal [facility] CREATININE 1.30 mg/dL 0.70-1.30 Normal (applies to [facility] non-numeric results) SODIUM LEVEL 149 mmol/L 136-[address] [facility] RESULTS REPEATED AND VERIFIED POTASSIUM LEVEL 4.0 mmol/L 3.5-5.1 Normal (applies to [facility] non-numeric results) Hospital CHLORIDE LEVEL 113 mmol/L 98-107 Above high normal [facility] CARBON DIOXIDE LEVEL 26 mmol/L 21-32 Normal (applies to [facility] non-numeric results) Hospital ANION GAP 10 mmol/L 2-8 Above high normal [facility] CALCULATED RESULT BUN/CREATININE RATIO 39.2 12.0-20.0 Above high [facility] normal [facility] EST GLOMERULAR 56.9 mL/min/ > 60 mL/min [facility] FILTRATION RATE [facility] GFR ESTIMATE MDRD Equation (Modification of Diet in RenalDisease). Reference range is >= 60mL/min/1.73m2 If patient is Afri can Citizen Of [place], multiply printed result by1.21NOTE: A calculated eGFR of <60 woods ggests chronic kidneydisease, but only if found consistently over at least 3months . A calculated result of <15 is consistent with renalfailure. CREATININE CLEARANCE CALC 51.00 mL/min > 60 mL/min [facility] Medication dose adjustment may be needed for CrCl< 60 mL/min.The estimated creatinine clearance (CRCL) is calculatedusing the Cockcroft-Gault (C-G) equation, which utilizesserum creatinine, gender, and jesus dy weight (Cockcroft DW,Gault MH. Prediction of creatinine clearance from serumcreati nine. Nephron 1976; 16(1):31-41). The C-G equationoverestimates GFR because of the tubular secretion ofcreatinine and the values are not adjusted for body-surface area.Please note that the C-G equation may be limited in thesetting of extremes of mus eusebio mass (e.g. obesity oratrophy),extremes of age, malnutrition, liver disease,advance d renal failure, and unstable renal function. OSMOLALITY CALCULATED 311 280-301 Above high normal [facility] CALCULATED RESULT ID Date Data Source [id number] 03/20/2020 06:59:00 AM EDT [facility] Name Value Range Interpretation Description Data Sup porting Code Source(s) Document(s ) CALCIUM 9.2 mg/dL 8.5-10.1 Normal (applies to [facility] non-numeric Hospital results) ID Date Data Source [id number] 03/20/2020 06:59:00 AM EDT [facility] Name Value Range Interpretation Description Data Sup porting Code Source(s) Document(s ) PHOSPHOROUS 3.6 2.5-4.9 Normal (applies [facility] mg/dL to non-numeric Hospital results) ID Date Data Source [id number] 03/20/2020 06:59:00 AM EDT [facility] Name Value Range Interpretation Description Data Sup porting Code Source(s) Document(s ) MAGNESIUM 1.9 mg/dL 1.8-2.4 Normal (applies [facility] to non-numeric Hospital results) ID Date Data Source [id number] 03/20/2020 06:59:00 AM EDT [facility] Name Value Range Interpretation Description Data Sup porting Code Source(s) Document(s ) ALBUMIN 2.6 gm/dL 3.4-5.0 Below low normal [facility] BILIRUBIN,T 0.3 mg/dL 0.2-1.0 Normal [facility] AST/SGOT 36 U/L 15-37 Normal (applies to [facility] results) "Assay results affected by Sulfasalazine therapy. If thepatient is taking this drug, please contact the laboratory". ALT/SGPT 25 U/L 16-63 Normal (applies to non-numeric [facility] results) "Assay results affected by Sulfasalazine therapy. If thepatient is taking this drug, please contact the laboratory". ID Date Data Source [id number] 03/20/2020 06:59:00 AM EDT [facility] Name Value Range Interpretation Description Data Sup porting Code Source(s) Document(s ) PREALBUMIN 25.9 18.0-35.7 Normal (applies to [facility] s mg/dL1 non-numeric Hospital results) ID Date Data Source [id number] 03/20/2020 06:59:00 AM EDT [facility] Name Value Range Interpretation Description Data Sup porting Code Source(s) Document(s ) ALKALINE 102 u/l 46-116 Normal (applies [facility] PHOSPHATASE to non-numeric Hospital results) ID Date Data Source [id number] 03/20/2020 06:15:00 AM EDT [facility] What is the Source CATHETERIZED Name Value Range Interpretation Description Data Sup porting Code Source(s) Document(s ) LEGIONELLA Not Not [facility] ANTIGEN,EIA, Detected Detected Hospital URINE This assay is specific for Legionella pn eumophilaserogroup 1 which causes more than 50% of allLegionella infections. This as say will not detectinfections caused by other Legionella species/serogrps.Antigenuria may persist for prolonged periods of time.Legionella pneumophila serogroup 1 antigen can bedetected in urine within 2-3 days of infection andmay persist even af ter treatment. This assay doesnot detect other Legionella species or serogroups. This test was performed at: [employer] [address] [address] ID Date Data Source [id number] 03/20/2020 06:15:00 AM EDT [facility] What is the Source KELLY PORTIndications for Urine Screen Metabolic Change What is the Source KELLY PORTIndications for Urine Screen Metabolic Change Name Value Range Interpretation Description Data Sup porting Code Source(s) Document(s ) COLOR, URINE YELLOW STRAW [facility] APPEARANCE, CLEAR CLEAR [facility] GLUCOSE, NEG NEG [facility] URINE (UA) [facility] BILIRUBIN, NEG NEG [facility] URINE [facility] KETONE, URINE NEG NEG [facility] UROBILINOGEN, 0.2 EU/dL 0.0-0.5 Normal (applies [facility] s URINE to non-numeric Hospital results) SPECIFIC 1.020 1.001-1. Normal (applies [facility] GRAVITY,URINE 035 to non-numeric Hospital results) OCCULT BLOOD 1+ NEG Abnormal (applies [facility] URINE to non-numeric Hospital results) PH Urine 5.0 U 4.6-8.0 Normal (applies [facility] to non-numeric Hospital results) PROTEIN, TRACE NEG Abnormal (applies [facility] URINE to non-numeric Hospital results) NITRITE, NEG NEG [facility] URINE Hospital URINE NEG NEG [facility] LEUKOCYTE Hospital ESTERASE ID Date Data Source [id number] 03/20/2020 06:15:00 AM EDT [facility] What is the Source KELLY PORTIndications for Urine Screen Metabolic Change What is the Source KELLY PORTIndications for Urine Screen Metabolic Change Name Value Range Interpretation Code Description Data Supporting Source(s) Document(s ) RBC, URINE 10-20 /HPF 0-3 [facility] WBC, URINE NONE /HPF 0-5 [facility] MUCOUS, FEW [facility] URINE Hospital ID Date Data Source [id number] 03/19/2020 09:30:00 PM EDT [facility] VESTA SEGURA/COURTNEY LUNDBERG @085 2READ BACK AND VERIFIEDResult Reference RangeNot Detected No t DetectedNOTE: Please consider re-collection of a new specimen, ifclinically indicate d.NOTE: The COVID-19 assay has been cleared by the U.S. Foodand Drug Administration under the Emergency UseAuthorization (EUA). [facility] is designateda s a high complexity laboratory by the Clinical LaboratoryImprovement Amendment s of 1988(CLIA) and is qualified toperform this test. ASSAY INFORMATION: Real Time RT-PCRPerformed by:[facility], [address] [place] [address] Anson Reyes M.D.Jacquard Loom Card Changer Name Value Range Interpretation Code Description Data Annabelle rce(s) Supporting Document(s ) ID Date Data Source [id number] 03/19/2020 06:40:00 PM EDT [facility] Clinical Laboratory [address] [id number] Director: Chata Patel M.D.MRSANO MRSA ISOLATED Name Value Range Interpretation Code Description Data Annabelle rce(s) Supporting Document(s ) ID Date Data Source [id number] 03/19/2020 06:40:00 PM EDT [facility] Clinical [facility] [address] [facility], [place], [place] [address]Qyveyhbggy Director: Chata Patel M.D.CALLED JAE BUENO 1440 03/21/20VRE (E faecium)(Positive for Vanc omycin-Resistant Enterococcus faecium)R/O VREVRE ISOLATEDRBVREAD BACK AND VERIFIED Name Value Range Interpretation Code Description [facility] ) ID Date Data Source [id number] 03/19/2020 04:34:20 PM EDT [facility] IV patent without any erythema or swelli ng.IV inserted on 03/17/2020-kept in on discharge to [facility] for IV abxFoley draining without any issues or concerns.Kelly [facility] [place]Report given to EMS for transport. Name Value Range Interpretation Code Description Data [facility] rce(s) Supporting Document(s ) ID Date Data Source [id number] 03/19/2020 04:16:37 PM EDT [facility] Patient resting in bed without any distr ess noted.Trach collar 40%Patient d/c instructions, AVS, and MAR printed to go with patient to [facility].Awaiting transport. Name Value Range Interpretation Code Description Data [facility] Document(s ) ID Date Data Source [id number] 03/19/2020 04:08:41 PM EDT [facility] 1430-patient sitting in semi-harry's po sition.Asking to be suctioned. Suctioned via trach with minimal amador sputum notedPatie nt repositioned.Patient going to be discharged back to [facility] at [id number] 45-patient suctioned with small amount of amador sputum via trach.PO 97% Name Value Range Interpretation Code Description Data [facility] rce(s) Supporting Document(s ) ID Date Data Source [id number] 03/19/2020 03:53:20 PM EDT [facility] Removed cuffed 6 non-fenestrated and rep laced with 4 cuffed fenestrated shileytrach without complication in order to help pa tient phonate better. Previouslyhad cuffless 4 that was capped. No complications.Paul Flores MD Name Value Range Interpretation Code Description Data Annabelle rce(s) Supporting Document(s ) ID Date Data Source [id number] 03/19/2020 03:32:13 PM EDT [facility] ID Progress Note03/19/2020Subjective:Some what restless.Afebrile.Current Facility-Administered MedicationsMedicat ion Dose Route Frequency hydrocortisone Sod Succ (PF) (SOLU-CORTEF) injection 50 mg 50 mg IntraVENousBID vits A and D-white pet-lanolin (A&D) ointment Topical PRN doxycycline (VIBRAMYCIN) 100 mg in 0.9% sodium chloride (MBP/ADV) 100 mL PLV863 mg IntraVENous Q12H amLODIPine (NORVASC) tablet 10 mg 10 mg Oral DAILY ALPRAZol am (XANAX) tablet 0.25 mg 0.25 mg Oral QID PRN traMADoL (ULTRAM) tablet 50 mg 50 mg Oral Q6H PRN cefTRIAXone (ROCEPHIN) 2 g in 0.9% sodium chloride (MBP/ADV) 50 mL MBP 2 gIntraVENous Q24H acetaminophen (TYLENOL) solution 650 mg 650 mg Per G Tube Q4H PRN levothyroxine (SYNTHROID) tablet 200 mcg 200 mcg Per G Tube ACB sodium chloride (NS) flush 5-10 mL 5-10 mL IntraVENous PRN ondansetron (ZOFRAN) in jection 4 mg 4 mg IntraVENous Q6H PRN enoxaparin (LOVENOX) injection 40 mg 40 mg SubCUTAneous Q24H pantoprazole (PROTONIX) 40 mg in 0.9% sodium chloride 10 mL injection 40 mgIntraVENous DAILYObjective:Vitals:Visit VitalsBP (!) 155/92 (BP 1 Location: Left arm, BP Patient Position: At rest)Pulse (!) 107Temp 97.8 F (36.6 C)Resp 22Ht 5' 7" (1.702 m)Wt 86.6 kg (190 lb 14.7 oz)SpO2 96%BMI 29.90 kg/ m Tmax: Temp (24hrs), Av.7 F (36.5 C), Min:97.1 F (36.2 C), Max:98 F(36.7 C )Exam:General: AlertNeck: Trach tube is in placeLungs: Clear to auscultation bila terallyCV: Regular rate and rhythmAbdomen: Soft, non-tender. bowel sounds normal. n on-distendedExtremities: Mild RUE swelling, no erythemaLabs:Recent Labs 5 03/17/200303/16/201824WBC 13.8* 19.0* 35.4* 40.5*HGB 10.1* 9.6* 9. 2* 9.3*PLT 125* 127* 105* 130BUN 52* 48* 53* --CREA 1.26 1.31* 1.45* --SGOT 49* 54* 76* --AP 121* 121* 113 --TBILI 0.3 0.4 0.4 --Cultures:No results found for: SDESLab ResultsComponent Value Date/Time Culture result: NO GROWTH 1 DAY 03/16/2020 09:30 PM Culture result: NO GROWTH 3 DAYS 03/16/2020 06:34 PM Culture result: (A) 03/15/2020 11:45 AM KLEBSIELLA PNEUMONIAE : Refer to previous culture(s) for suscept ibilityresults Culture result: (A) 03/15/2020 11:40 AM KLEBSIELLA PNEUMONIAE : Refer to previous culture(s) for susceptibilityresults Culture result: LI GHT GROWTH PSEUDOMONAS AERUGINOSA (A) 03/14/2020 11:00 PM Culture result: (A) 03/13/2020 09:12 PM KLEBSIELLA PNEUMONIAE : Refer to previous culture(s) for suscept ibilityresults Culture result: (A) 03/13/2020 09:00 PM KLEBSIELLA PNEUMONIAE : Refer to previous culture(s) for susceptibilityresults Culture result: >1 00,000 COLONIES/mL KLEBSIELLA PNEUMONIAE (A) 03/13/2020 10:50AM Culture result: (A) 0 03/13/2020 10:40 AM KLEBSIELLA PNEUMONIAE : Refer to previous culture(s) for suscept ibilityresults Culture result: KLEBSIELLA PNEUMONIAE (A) 03/13/2020 10:20 AMRadiol ogy:No results found.Line/Insert Date:Assessment:1. 75 year old male with gram negative (Klebsiella) sepsis, probably secondaryto urinary tract infection.2. P ossible Cellulitis.3. Respiratory failure.4. H/O Aphasia, CAD, Cancer of head and nec k. Plan: 1. For discharge IV Ceftriaxone and Doxycycline IVPB for 11 more days..2. Of f of IV Zosyn.3. Off of IV Vancomycin and Tobramycin.4. Repeat another set of bloo d cs sent on 03/16, prelim negative.5. Monitor labs. WBC now improving. D/W Dr. Bishop Martinez MD Name Value Range Interpretation Code Description Data Annabelle rce(s) Supporting Document(s ) ID Date Data Source [id number] 03/19/2020 03:30:00 PM EDT [facility] Problem: Mobility Impaired (Adult and Pe diatric)Goal: *Therapy Goal (Edit Goal, Insert Text)Note:PHYSICAL THERAPY TREATM ENTPatient: Carlyle Pate (75 y.o. male)Date: 03/19/2020Diagnosis: Septic shock (HCC) [ A41.9, R65.21]<principal problem not specified>Procedure(s) (LRB):UNDER FLORO SCOPY INSERTION OF KELLY CATHETER CYSTOGRAM (N/A) 3 Days Post-OpPrecautions: Aspirat ion and fallASSESSMENT:The pt was received on 10 L NCO2 via trach collar. The pt prese nted withgeneralized weakness(R>L) and edema in R UE>L UE and 10/10 pain in R UE limi tinghis ability to tolerate ROM in R UE . The pt reqd Amber for supine to sit inlon g sitting and performed supine to sit holding L handrail on 3 occasions. Thept partici pated in AROM ex for L LE and AAROM ex for R LE. The pt wasrepositioned back in bed a nd left in NAD, all needs within reach and RNnotified.Progression toward goals:[] Improving appropriately and progressing toward goals[x] Improving slowly and progressing toward goals[] Not making progress toward goals and plan of care w ill be adjustedPLAN:Patient continues to benefit from skilled intervention to add ress the aboveimpairments. Continue treatment per established plan of care.D ischarge Recommendations: Inpatient RehabFurther Equipment Recommendations f or Discharge: TBDSUBJECTIVE:Patient stated "my lips are dry."OBJECTIVE DATA SUMMARY :Critical Behavior:Neurologic State: AlertOrientation Level: Oriented to pers on, Oriented to place, Oriented to situationCognition: Follows commandsSafe ty/Judgement: Insight into deficitsFunctional Mobility Training:Bed Mobility:Supine to Sit: Minimum assistanceSit to Supine: Minimum assistanceTransfers: DNTBalance: Sitting: ImpairedSitting - Static: Fair (occasional);Good (unsupported)Sitting - Dynamic: Fair (occasional)Ambulation/Gait Training:Neuro Re-Education:Sitting cristina nce activityTherapeutic Exercises:B/L Ankle pumpsBed mobilityPositioningThere ex for B/L UE and LEPain:Pain Scale 1: Numeric (0 - 10)Pain Intensity 1: 10Pain Location 1: Arm;HandPain Orientation 1: RightPain Description 1: Aching;ConstantPain Inter vention(s) 1: Repositioned;ElevationActivity Tolerance:GoodPlease refer to the [facility] eet for vital signs taken during this treatment.After treatment:[] Patient left in no apparent distress sitting up in chair[x] Patient left in no apparent distress in bed[x] Call pleitez left within reach[x] Nursing notified[] Caregi valerie present[] Bed alarm activatedCOMMUNICATION/COLLABORATION:The patient's plan of care was discussed with: Yao Duarte Time Calculati on: 24 mins Name Value Range Interpretation Code Description Data Annabelle rce(s) Supporting Document(s ) ID Date Data Source [id number] 03/19/2020 02:09:14 PM EDT [facility] Care Management InterventionsPCP Verifie d by CM: YesPalliative Care Criteria Met (RRAT>21 & CHF Dx)?: NoMode of Transport at Discharge: ALSTransition of Care Consult (CM Consult): Discharge Planning, SNFMyC rolle Signup: NoDischarge Durable Medical Equipment: NoPhysical Therapy Consult: Y esOccupational Therapy Consult: NoSpeech Therapy Consult: NoCurrent Support Netwo rk: Lives with SpouseConfirm Follow Up Transport: FamilyThe Patient and/or Dionna ent Sewer Hand was Provided with a Choice of Providerand Agrees with the Discharge Plan?: YesName of the Patient Sewer Hand Who was Provided with a Choice of Provid erand Agrees with the Discharge Plan: Puma of Choice List was Provide d with Basic Dialogue that Supports thePatient's Individualized Plan of Care /Goals, Treatment Preferences and Sharesthe Quality Data Associated with the Provide rs?: YesVeteran Resource Information Provided?: RefusedDischarge LocationDisc harge Placement: Rehab hospital/unit acutePt DC'd for 430 transport via [facility] to [facility]. W ursula Flory aware and agrees with DCplan. RN aware as well. Name Value Range Interpretation Code Description Data Annabelle rce(s) Supporting Document(s ) ID Date Data Source [id number] 03/19/2020 01:57:54 PM EDT [facility] Attending [facility]icians @ [place] [address] Discharge SummaryPatient: Carlyle Pate Sex: male DOA: 03/13/2020Age: 75 y.o. LOS: LOS: 6 days PCP: Edison Prajapati MDTreatment Team: @[email or web address]@Discharge Date: 03/19/20 20Disposition[facility] at [facility] facilityAdmission Diagnoses: Septic shoc k ([facility]) [A41.9, R65.21]Discharge Diagnoses: Septic shock due to Klebsiella septicemi a from UTI;pneumonia - present on admission; respiratory failure - trachProblem List as of 03/19/2020 Never Reviewed Codes Class Noted - Resolved Bruise ICD-10-CM: T14.6TNSOFK-7-EH: 924.9 03/18/2020 - Present Overview Signed 03/18/2020 3:59 PM by Loan Barbosa, XAVIER Right sacral area light purple Septic shock (HCC) ICD-10-CM: A41 .9, R65.21ICD-9-CM: 038.9, 785.52, 995.92 03/13/2020 - PresentDischarge Condition: FairHospital Course: antibiotic rx for bacteremia, pneumonia; iv fluid and pres sorfor shock; PEG tube for feeding; Kelly cath for stricture; trach collarPhysical Exam: alert no distressConsults: Pulmonary/Critical Care, Infectious Dise aseSignificant Diagnostic Studies: stableDischarge Medications:Current Disc harge Medication ListSTART taking these medications Detailsacetaminophen (TYLENO L) 32MG/ML soln solution Take 20.3 mL by mouth every four(4) hours as needed for Fever or Pain.Qty: 1 CUP, Refills: 0cefTRIAXone 2 gram 2 g IVPB 2 g by Intr aVENous route every twenty-four (24)hours for 11 days.Qty: 1 Dose, Refills: 0doxycycli ne 100 mg 100 mg 100 mg by IntraVENous route every twelve (12) hoursfor 11 days.Qty: 1 Cartridge, Refills: 0hydrocortisone Sod Succ, PF, (SOLU-CORTEF) 100 mg/2 mL solr injection 1 mL byIntraVENous route two (2) times a day for 3 days.Qty: 1 mL, Refill s: 0 Comments: Reduce dose by 1/2 every 3 daysondansetron (ZOFRAN) 4 mg/2 mL soln 2 mL by IntraVENous route every six (6)hours as needed for Nausea.Qty: 1 mL, Refills: 0pantoprazole 4 mg/mL in 0.9% sodium chloride injection 10 mL by IntraVENousr oute daily.Qty: 1 Dose, Refills: 0CONTINUE these medications which have CHANGED Det ailsALPRAZolam (XANAX) 0.25 mg tablet Take 1 Tab by mouth four (4) times daily asneed ed for Anxiety. 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 Max Daily Amount: 200 mg.Qty: 1 Tab, Refills: 0 Associated Diagnoses: Fever, unspecified fever caus e; At risk for sepsis;Septic shock ([facility]); Acute on chronic respiratory failure wit h hypoxia ([facility]);Kelly catheter problem, initial encounter ([facility]); Gross hematuria ; Sepsis, due tounspecified organism, unspecified whether acute organ dysfunct ion present ([facility]);BruiseCONTINUE these medications which have NOT CHANGED Detai lsescitalopram oxalate (LEXAPRO) 10 mg tablet 10 mg by Per G Tube route daily.famotidi ne (PEPCID) 20 mg tablet 20 mg by Per G Tube route two (2) times a day.gabapentin (NE URONTIN) 100 mg capsule 100 mg by Per G Tube route three (3) timesdaily.melatonin 5 m g cap capsule Take 9 mg by mouth nightly.sennosides 17.2 mg tab 17.2 mg b y PEG Tube route daily.losartan (COZAAR) 100 mg tablet 150 mg by Per G Tube route sheyla ly.doxazosin (CARDURA) 1 mg tablet 1 mg by Per G Tube route nightly.ascorbic acid, vitamin C, (VITAMIN C) 500 mg tablet 500 mg by Per G Tube routedaily.chlorhexidine ( PERIDEX) 0.12 % solution 15 mL by Swish and Spit route daily.docusate sodium (Colace ) 100 mg capsule 200 mg by Per G Tube route daily.DOCUSATE SODIUM-BENZOCAINE RE Inse rt 5 mL into rectum. Every 2 daysmultivitamin (ONE A DAY) tablet 1 Tab by Per G Tube r oute daily.nystatin (MYCOSTATIN) topical cream Apply to affected area three (3) timesdaily.polyethylene glycol (MIRALAX) 17 gram packet Take 17 g by mouth daily.SEN NA 528 mg by PEG Tube route.ergocalciferol (Vitamin D2) 1,250 mcg (50,000 unit) cap derek Take 50,000 Units bymouth.ALBUTEROL IN Take 2 Puffs by inhalation four (4) time s daily.aspirin (ASPIRIN) 325 mg tablet 325 mg by PEG Tube route daily.atorvastatin (LIPITOR) 40 mg tablet 40 mg by Per G Tube route daily.bisacodyL 5 mg tab Insert 10 mg into rectum nightly.potassium bicarb-citric acid (EFFER-K) 20 mEq tabl et Take 20 mEq by mouth two(2) times a day.FLUTICASONE PROPIONATE IN 1 [place] by Nasal route two (2) times a day.STOP taking these medications acetaminophen (TYLENOL ) 325 mg tablet Comments:Reason for Stopping:Activity: Activity as tolerated Diet: Osmolite 1.5 @60 ml/hr; 200 ml H20 every 6 hours; liquid protein 2x dailyCo de Status: FullFollow-up: at rehabTime spent on discharge summary- more than 30 minut es Name Value Range Interpretation Code Description Data Annabelle rce(s) Supporting Document(s ) ID Date Data Source [id number] 03/19/2020 01:35:52 PM EDT [facility] JAZMYNE otto MD and awaiting call back. MD osiel blela MD [facility] 4:30 pm per rep Ernst. [facility] liaMaryse amado attem pting to confirm bed [facility] for today if discharged. Awaiting call back from magalis mosley. Pt has NEGATIVECovid status as of 03/13/2020.CM will continue to follow.(12 :49 pm) Pt has confirmed bed at [facility] for today per Maryse vines. Liaisonaware of ti me set above for transport. made aware of above by RNCM. Awaitingdc order from . Name Value Range Interpretation Code Description Data Annabelle rce(s) Supporting Document(s ) ID Date Data Source [id number] 03/19/2020 01:24:28 PM EDT [facility] APatie nt in [id number]'s position. Trach collar intactNo SOB.Patient awake,alert, oriented Name Value Range Interpretation Code Description Data Annabelle rce(s) Supporting Document(s ) ID Date Data Source [id number] 03/19/2020 01:23:03 PM EDT [facility] TRANSFER - IN REPORT:Verbal report recei dorita from DianeRN(name) on Carlyle Pate being receivedfrom SICU(unit) for routin e progression of careReport consisted of patient's Situation, Background, Assessm ent andRecommendations(SBAR).Information from the following report(s) SBAR, Kardex, Ca rdiac Rhythm SR andAlarm Parameters was reviewed with the receiving nurse.Opport unity for questions and clarification was provided.Assessment completed upon shelley carvalho's arrival to unit and care assumed. Name Value Range Interpretation Code Description Data Annabelle rce(s) Supporting Document(s ) ID Date Data Source [id number] 03/19/2020 12:18:10 PM EDT [facility] CM spoke with Dr. Ayaka hernandez above ian cartagena DC. Patient to return to [facility] today ifmedically cleared. Per Dr. Sandra cartagena can go to medical floor, DC planning.Dr. Freed will see patient and if stable c all Dr. Prajapati. 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 Status post admission to [facility] on 01/31-> 03/12--> [facility] --> [facility] 03/13 secondary to lethargy, respiratory distress, fever andhypotension-Cultures at [facility] showing G NR 02/02 bottles; Klebsiella sepsis, Clinicallyimproving and leukocytosis mar kedly improved -On Ceftriaxone-COVID (-) 03/13-CT of the head with old right parie manju infarct and left subacuteperiventricular infarct-off pressors. Wean hydrocortison e 50 mg p65s-MCD edema asymmetric. Dopplers negative-Afib rate controlled. Patient o n DVT treatment dosage of lovenox prior totransfer, will continue-Tolerating tra ch collar during the day. Attempting to speak. Changed trach atbedside to a cuff ed 4 fenestrated shiley. Will add passy juliet valve.-DVT and SUP prophy-OK to transfer to floor. [facility]Awake, interactive, trying to speak.Past Medical History:Diagnosis Date Anxiety Aphasia Atrial fibrillation ( HCC) with ventricular tachycardia Bilateral carotid artery disease (HCC) CAD (coron tg artery disease) Chronic cystitis Dysphagia Head and neck cancer (HCC) H emiparesis (HCC) right side HLD (hyperlipidemia) Hypertension Hypoxemi a Infarction of left basal ganglia (HCC) intracranial hemorrhage Pneumonia Pros douglas cancer (HCC) Respiratory failure (HCC) S/P percutaneous endoscopic gastrostomy (PEG) tube placement (HCC) Thymus cancer (HCC) Thyroid cancer (HCC)Past Surgical History:Procedure Laterality Date HX OTHER SURGICAL thymus gland removed HX TRACHE OSTOMY IR INSERT GASTROSTOMY TUBE PERCPrior to Admission medicationsMedication Sig S tart Date End Date Taking? Authorizing ProvideramLODIPine (NORVASC) 10 mg table t 10 mg by Per G Tube route daily. Yes Other,Adrien MDescitalopram oxalate (CHACE PRO) 10 mg tablet 10 mg by Per G Tube route daily.Yes Other, Phys MDfamotidine (PEP ARTEMIO) 20 mg tablet 20 mg by Per G Tube route two (2) times a day.Yes Other, Phys, MDg abapentin (NEURONTIN) 100 mg capsule 100 mg by Per G Tube route three (3) timesdaily . Yes Other, Phys MDlevothyroxine (SYNTHROID) 200 mcg tablet Take 200 mcg by mouth Daily (beforebreakfast). Yes Other, Phys MDmelatonin 5 mg cap capsul e Take 9 mg by mouth nightly. Yes Other, Phys, MDsennosides 17.2 mg tab 17.2 mg b y PEG Tube route daily. Yes Other, Phys MDlosartan (COZAAR) 100 mg tablet 150 mg by Per G Tube route daily. Yes Other,Phys, MDdoxazosin (CARDURA) 1 mg tablet 1 mg b y Per G Tube route nightly. Yes Other,Phys, MDascorbic acid, vitamin C, (VITAMIN C) 500 mg tablet 500 mg by Per G Tube routedaily. Yes Other, Phys, MDchlorhe xidine (PERIDEX) 0.12 % solution 15 mL by Swish and Spit route daily.Yes Other, Ph ys, MDdocusate sodium (Colace) 100 mg capsule 200 mg by Per G Tube route daily. YesO ther, Phys, MDDOCUSATE SODIUM-BENZOCAINE RE Insert 5 mL into rectum. Every 2 days Yes Other,Phys, MDmultivitamin (ONE A DAY) tablet 1 Tab by Per G Tube route daily. Yes Other,Phys, MDnystatin (MYCOSTATIN) topical cream Apply to affected area th ree (3) timesdaily. Yes Other, Phys, MDpolyethylene glycol (MIRALAX) 17 gram packet Take 17 g by mouth daily. YesOther, Phys, MDSENNA 528 mg by PEG Tube route. Yes Other, Phys, MDergocalciferol (Vitamin D2) 1,250 mcg (50,000 unit) capsule Take 50,000 Units bymouth. Yes Other, Phys, MDALBUTEROL IN Take 2 Puffs by inhalatio n four (4) times daily. Yes Other, Phys,MDaspirin (ASPIRIN) 325 mg tablet 3 25 mg by PEG Tube route daily. Yes Other,Phys, MDatorvastatin (LIPITOR) 40 mg tablet 40 mg by Per G Tube route daily. YesOther, Phys, MDbisacodyL 5 mg tab Ins ert 10 mg into rectum nightly. Yes Other, Phys, MDenoxaparin (Lovenox) 40 mg/0.4 m L 40 mg by SubCUTAneous route daily. YesOther, Phys, MDpotassium bicarb-citri c acid (EFFER-K) 20 mEq tablet Take 20 mEq by mouth two(2) times a day. Yes Other, P hys, MDFLUTICASONE PROPIONATE IN 1 [place] by Nasal route two (2) times a day. YesOt her, Phys, MDALPRAZolam (XANAX) 0.25 mg tablet 0.25 mg by Per G Tube route every eight (8)hours as needed for Anxiety. Yes Other, Phys, MDtraMADoL (ULTRAM) 50 mg t ablet 50 mg by Per G Tube route every six (6) hours asneeded for Pain. Yes Other, Ph ys, MDacetaminophen (TYLENOL) 325 mg tablet 650 mg by Per G Tube route every four (4 )hours as needed for Pain. Yes Other, Elena Jurado Known AllergiesSocial HistoryTobacc o Use Smoking status: Former Smoker Smokeless tobacco: Never UsedSubstance U se Topics Alcohol use: Not CurrentlyHistory reviewed. No pertinent family history.Cu rrent Facility-Administered MedicationsMedication Dose Route Frequen cy doxycycline (VIBRAMYCIN) 100 mg in 0.9% sodium chloride (MBP/ADV) 100 mL [id number] mg IntraVENous Q12H hydrocortisone Sod Succ (PF) (SOLU-CORTEF) injection 100 mg 100 mgIntraVENous BID amLODIPine (NORVASC) tablet 10 mg 10 mg Oral DAILY cefTRIAX one (ROCEPHIN) 2 g in 0.9% sodium chloride (MBP/ADV) 50 mL MBP 2 gIntraVENous Q24H levothyroxine (SYNTHROID) tablet 200 mcg 200 mcg Per G Tube ACB enoxaparin (LOVE NOX) injection 40 mg 40 mg SubCUTAneous Q24H pantoprazole (PROTONIX) 40 mg in 0.9% s odium chloride 10 mL injection 40 mgIntraVENous DAILYReview of Systems:n/a Objective:Vital Signs:Visit VitalsBP 152/87 (BP Patient Position: At rest)Pulse 90Te mp 97.9 F (36.6 C)Resp 18Ht 5' 7" (1.702 m)Wt 86.6 kg (190 lb 14.7 oz)SpO2 91%BMI 29.90 kg/m O2 Device: Tracheal collarTemp (24hrs), Av.6 F (36.4 C), Min:97.1 F (36.2 C), Max:97.9 F (36.6 C)Physical Exam:General: Awake, interactiveHead: Normocephalic, without obvious abnormality, atraumatic.Eyes: Conjunctivae/corneas c lear. PERRL, EOMs intact.Nose: Nares normal. Septum midline. Mucosa normal. No draina ge or sinustenderness.Throat: Lips, mucosa, and tongue normal. Teeth and gums normal . + trach. MinimalsecretionsNeck: Supple, symmetrical, trachea midline, no adenopa thy, thyroid: noenlargment/tenderness/nodules, no haynes tid bruit and no JVD.Back: Symmetric, no curvature. ROM normal.Lungs: B/l rhonc hi - improvedChest wall: No tenderness or deformity.Heart: Regular rate and rhyth m, S1, S2 normal, no murmur, click, rub or gallop.Abdomen: Soft, mildly distended , non- tender + PEG cleanExtremities: + edema. Right groin TLCPulses: Poorly pal pableSkin: Skin color, texture, turgor normal. No rashes or lesionsLymph nodes: Cervical, supraclavicular, and axillary nodes normal.Neurologic: Awake, interact iveData review:Recent Results (from the past 24 hour(s))CBC WITH MANUAL DIFF Collecti on Time: 03/19/20 3:55 AMResult Value Ref Range WBC 13.8 (H) 4.8 - 10.6 K/uL RBC 3 .55 (L) 4.70 - 6.00 M/uL HGB 10.1 (L) 14.0 - 18.0 g/dL HCT 33.8 (L) 42.0 - 52.0 % MCV 95.2 (H) 81.0 - 94.0 FL MCH 28.5 27.0 - 35.0 PG MCHC 29.9 (L) 30.7 - 37.3 g/dL RDW 18 .9 (H) 11.5 - 14.0 % PLATELET 125 (L) 130 - 400 K/uL MPV 13.4 (H) 9.2 - 11.8 FL NRBC 0.0 0 PER 100 WBC ABSOLUTE NRBC 0.00 0.0 - 0.01 K/uL NEUTROPHILS 81 (H) 48.0 - 72.0 % BAND NEUTROPHILS 1 (H) 0 % LYMPHOCYTES 10 (L) 18.0 - 40.0 % MONOCYTES 5 2.0 - 12.0 % EOSINOPHILS 0 0.0 - 7.0 % BASOPHILS 0 0.0 - 3.0 % METAMYELOCYTES 1 (H) 0 % MYELOCY ROBERT 2 (H) 0 % PROMYELOCYTES 0 0 % BLASTS 0 0 % OTHER CELL 0 IMMATURE GRANULOCYTES 0 % ABS. NEUTROPHILS 11.7 (H) 2.3 - 7.6 K/UL ABS. LYMPHOCYTES 1.4 0.9 - 4.2 K/UL ABS. MONOCYTES 0.7 0.1 - 1.7 K/UL ABS. EOSINOPHILS 0.0 0.0 - 1.0 K/UL ABS. BASO PHILS 0.0 K/UL ABS. IMM. GRANS. 0.0 K/UL RBC COMMENTS 3+ANISOCYTOSIS RBC COMMENTS 1+P OIKILOCYTOSIS PLATELET ESTIMATE DECREASED DF MANUALMETABOLIC PANEL, COMPREHENSIVE Col lection Time: 03/19/20 3:55 AMResult Value Ref Range Sodium 145 136 - 145 mmol/L Po tassium 4.7 3.5 - 5.1 mmol/L Chloride 119 (H) 98 - 107 mmol/L CO2 22 21 - 32 mmol/L An ion gap 9 (L) 10 - 20 mmol/L Glucose 139 (H) 74 - 106 mg/dL BUN 52 (H) 7 - 18 mg/dL C reatinine 1.26 0.70 - 1.30 mg/dL GFR est AA >60 >60 ml/min/1.73m2 GFR est non-AA 59 (L) >60 ml/min/1.73m2 Calcium 8.8 8.5 - 10.1 mg/dL Bilirubin, total 0.3 0.2 - 1.0 mg/ dL ALT (SGPT) 24 13 - 61 U/L AST (SGOT) 49 (H) 15 - 37 U/L Alk. phosphatase 121 (H) 45 - 117 U/L Protein, total 7.8 6.4 - 8.2 g/dL Albumin 2.4 (L) 3.5 - 4.7 g/dL Glob ulin 5.4 (H) 1.7 - 4.7 g/dL A-G Ratio 0.4 (L) 0.7 - 2.8Imaging:I have personally revie wed the patient's radiographs and have reviewed thereports:No CXR TodayElectron ically signed by Beto Flores MD on 03/19/2020 at 4:01 PM Name Value Range Interpretation Code Description Data Annabelle rce(s) Supporting Document(s ) ID Date Data Source [id number] 03/19/2020 11:06:56 AM EDT [facility] Problem: Dysphagia (Adult)Goal: *Speech Goal: (INSERT TEXT)Description: Speech therapy goals:Initiated . NPO. Alternate means of nutrition and hydration recommended at this time2. Pt will karlos ate five (5) minute intervals of PMV placement for voicing withSLP, RT, claims processor trained in PMV use present.Note:SPEECH LANGUAGE PATHOLOGY BEDSIDE VOICING & SWA LLOW EVALUATIONPatient: Carlyle Pate (75 y.o. male)Date: 03/19/2020Primary Diagnos is: Septic shock (HCC) [A41.9, R65.21]Procedure(s) (LRB):UNDER FLOROSCO PY INSERTION OF KELLY CATHETER CYSTOGRAM (N/A) 3 Days Post-OpPrecautions: Aspirat ionCurrent Diet (Recommendation): NPO. Alternate means of nutrition and hydrati onrecommended at this time. Pt will tolerate five (5) minute intervals of PMVplacemen t for voicing with COTTON ACREAGE MEASURER, RT, claims processor trained in PMV use present.ASSESSMENT :Based on the objective data described below, the patient presents with Dysphagiaand Dysphonia.Pat ient will benefit from skilled intervention to address the above impairments.Patient 's rehabilitation potential is considered to be Fair.Factors which may influence reha bilitation potential include:[] None noted[] Mental ability/s tatus[x] Medical condition[] Home/family situation and support s ystems[x] Safety awareness[] Pain tolerance/management[] Other:PLAN :Recommendations and Planned Interventions:Voicing and swallowing the rapyFrequency/Duration: Patient will be followed by speech-language pathology 5t imes a week to address goals.Discharge Recommendations: To Be DeterminedSUBJECT IDALMIS:Patient presents as alert and cooperative. Pt stated, "I don't think I canswallow anythingNow." Pt expelled ice cubes and honey-thick liquids. RN prese nt to suction ptintermittentlyDuring PMV placement. 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 Environment: Rehabilitation facilityOne/Two Story [facility] ryLiving Alone: NoSupport Systems: Spouse/Significant Other/PartnerPatient Expects to be Discharged to:: Rehabilitation facilityCurrent DME Used/Available at me: Walker, rolling, Cane, straightCognitive and Communication Status:Neurologic Stat e: AlertOrientation Level: Oriented to person, Oriented to place, Oriented to s ituationCognition: Follows commandsPerception: Tactile, Verbal, Vis ualPerseveration: Tactile cues provided, Verbal cues provided, Visual cues provid edSafety/Judgement: Insight into deficitsOral Assessment:Oral AssessmentLabial: Decrea sed rate;Other (comment)(Bloody lip)Dentition: LimitedOral Hygiene: Fair -PoorLingual: Decreased rate;Decreased strengthVelum: Unable to visualizeMandib le: No impairmentGag Reflex: ReducedP.O. Trials:Patient Position: Upright in bedV ocal quality prior to P.O.: Fatigue;Gllottal martell;Breathy;Wet;Low volumeConsistency Pr esented: Honey thick liquid;Ice chipsHow Presented: Spoon;COTTON ACREAGE MEASURER-fed/presentedHow Mu ch: 2(spoonfuls)Bolus Acceptance: No impairmentBolus Formation/Control: Impai redType of Impairment: DelayedPropulsion: Delayed (# of seconds)Oral Residue: None Initiation of Swallow: Delayed (# of seconds)Laryngeal Elevation: Decreased;W eakAspiration Signs/Symptoms: Change vocal quality;Material suctionedPharyngeal Pha se Characteristics: Suspected pharyngeal residue;Effortfulswallow;Easily fatigued ;Poor endurance;Altered vocal qualityEffective Modifications: NoneCues for Modifications: Minimal Oral Phase Severity: Mild-moderatePharyngeal Phase Severity : Moderate-severePain:Pain Scale 1: Adult Nonverbal Pain ScalePain Intensity 1: 0After treatment:[] Patient left in no apparent distress sitting up in chair[x] Patient left in no apparent distress in bed[x] C all pleitez left within reach[x] Nursing notified[] Caregiver present[x] Bed alarm activatedCOMMUNICATION/EDUCATION:The emmy roldan's plan of care including recommendations, planned interventions, andrecommended diet changes were discussed with: Registered Nurse and Patient andot her COTTON ACREAGE MEASURER.[] Posted safety precautions in patient's room.[x] Patient/family have participated as able in goal setting and planof care.[x] Patient/family agree to work toward stated goals and plan ofcare.[] Patient understands intent and goals of therapy, but is neutralabout his/her par ticipation.[] Patient is unable to participate in goal setting and plan of care.Thank you for this referral.Flavio OrestukTime Calculation: 20 mins Name Value Range Interpretation Code Description Data Annabelle rce(s) Supporting Document(s ) ID Date Data Source [id number] 03/19/2020 07:43:23 AM EDT [facility] Bedside shift change report given to Dusty pritchard RN (oncoming nurse) by Sherri (offgoing nurse). Report included the fo [facility] information SBAR,Kardex, ED Summary, Procedure Summary, Intake/Output, MAR, R ecent Results andCardiac Rhythm NSR. Name Value Range Interpretation Code Description Data Annabelle rce(s) Supporting Document(s ) ID Date Data Source [id number] 03/19/2020 07:42:57 AM EDT [facility] Name Value Range Interpretation Description Data Sup porting Code Source(s) Document(s ) Leukocytes 13.8 4.8-10.6 Above high normal [facility] - [#/volume] in K/uL Good Blood by [facility] count [facility] Erythrocytes 3.55 4.70-6.0 Below low normal [facility] - [#/volume] in M/uL 0 Good Blood by [facility] Hemoglobin 10.1 14.0-18. Below low normal [facility] - [Mass/volume] in g/dL 0 Good Blood [facility] Hematocrit 33.8 % 42.0-52. Below low normal [facility] - [Volume 0 Good Fraction] of Pent[facility]alism Blood by Hospital Automated count Erythrocyte mean 95.2 FL 81.0-94. Above high normal [facility] - corpuscular 0 Good volume [Entitic Pent[facility]alism volume] by Hospital Automated count Erythrocyte mean 28.5 PG 27.0-35. [facility] - corpuscular 0 Good hemoglobin [facility] [Entitic mass] Hospital by Automated count Erythrocyte mean 29.9 30.7-37. Below low normal [facility] - corpuscular g/dL 3 Good hemoglobin [facility]alism concentration [facility] [Mass/volume] by Automated count Erythrocyte 18.9 % 11.5-14. Above high normal [facility] - distribution 0 Good width [Ratio] by [facility] Automated count Hospital Platelets 125 K/uL 130-400 Below low normal [facility] - [#/volume] in Good Blood by [facility] Automated count Hospital Platelet mean 13.4 FL 9.2-11.8 Above high normal [facility] - volume [Entitic Good volume] in Blood [facility] by Automated Hospital count Nucleated 0.0 PER 0 [facility] - erythrocytes/100 100 WBC Good leukocytes [facility] [Ratio] in Blood Hospital Nucleated 0.00 0.0-0.01 [facility] - erythrocytes K/uL Good [#/volume] in [facility] Blood [facility] Segmented 81 % 48.0-72. Above high normal [facility] - neutrophils/100 0 Good leukocytes in [facility] Band form 1 % 0 Above high normal [facility] - neutrophils/100 Good leukocytes in [facility] Blood by Manual Hospital count Lymphocytes/100 10 % 18.0-40. Below low normal [facility] - leukocytes in 0 [facility] Blood [facility] Monocytes/100 5 % 2.0-12.0 [facility] - leukocytes in [facility] Blood [facility] Eosinophils/100 0 % 0.0-7.0 [facility] - leukocytes in [facility] Blood [facility] Basophils/100 0 % 0.0-3.0 [facility] - leukocytes in [facility] Blood [facility] Metamyelocytes/1 1 % 0 Above high normal [facility] - 00 leukocytes in Good Blood by Manual [facility] count Hospital Myelocytes/100 2 % 0 Above high normal [facility] - leukocytes in Good Blood by Manual [facility] count Hospital Promyelocytes/10 0 % 0 [facility] - 0 leukocytes in Good Blood by [facility] Blasts/100 0 % 0 [facility] - leukocytes in Good Blood by [facility] Other cells/100 0 [facility] - leukocytes in Good Blood by [facility] Immature 0 % [facility] - granulocytes/100 Good leukocytes in [facility] Blood by Hospital Automated count Segmented 11.7 2.3-7.6 Above high normal [facility] - neutrophils K/UL Good [#/volume] in [facility] Lymphocytes 1.4 K/UL 0.9-4.2 [facility] - [#/volume] in [facility] Monocytes 0.7 K/UL 0.1-1.7 [facility] - [#/volume] in [facility] Eosinophils 0.0 K/UL 0.0-1.0 [facility] - [#/volume] in [facility] Basophils 0.0 K/UL [facility] - [#/volume] in [facility] Immature 0.0 K/UL [facility] - granulocytes Good [#/volume] in [facility] Blood by Hospital Automated count 3+ANISOCYTOSIS1+POIKILOCYTOSIS Platelet adequacy [Presence] in Blood by [facility] Light microscopy Differential cell count method - Blood [facility] ID Date Data Source [id number] 03/19/2020 05:08:18 AM EDT [facility] Name Value Range Interpretation Description Data Sup porting Code Source(s) Document(s ) Sodium 145 136-145 [facility] - Good [Moles/volume mmol/L Pent[facility]ism ] in Serum or Hospital Plasma Potassium 4.7 3.5-5.1 [facility] - Good [Moles/volume mmol/L [facility]ism ] in Serum or Hospital Plasma RESULTS CONFIRMED Chloride [Moles/volume] 119 mmol/L 98-107 Above high [facility] - Good in Serum or Plasma [facility] Carbon dioxide, total 22 mmol/L 21-32 [facility] - Good [Moles/volume] in Serum [facility] amador or [facility] Anion gap in Serum or 9 mmol/L 10-20 Below low [facility] - Good Plasma [facility] Glucose [Mass/volume] in 139 mg/dL 74-106 Above high [facility] - Good Serum or Plasma normal [facility] Urea nitrogen 52 mg/dL 7-18 Above high [facility] - Good [Mass/volume] in Serum or normal [facility] Hospital Creatinine [Mass/volume] 1.26 mg/dL 0.70-1.30 [facility] - Good in Serum or Plasma [facility] Glomerular filtration >60 [facility] - Good rate/1.73 sq M predicted Samar itan among blacks [Volume Hospital Rate/Area] in Serum or Plasma by Creatinine-based formula (MDRD) Glomerular filtration 59 >60 Below low [facility] - Good rate/1.73 sq M predicted ml/min/1.73m2 normal S amaritan among non-blacks [Volume Hospi manju Rate/Area] in Serum or Plasma by Creatinine-based formula (MDRD) Calcium [Mass/volume] in 8.8 mg/dL 8.5-10.1 [facility] - Good Serum or Plasma [facility] Bilirubin.total 0.3 mg/dL 0.2-1.0 [facility] - Good [Mass/volume] in Serum or [facility] Alanine aminotransferase 24 U/L 13-61 [facility] - Good [Enzymatic Pentecostalism activity/volume] in Serum Hosp ital or Plasma Aspartate 49 U/L 15-37 Above high [facility] - Good aminotransferase normal [facility]ism [Enzymatic Hospital activity/volume] in Serum or Plasma by With P-5'-P Alkaline phosphatase 121 U/L 45-117 Above high BS[facility]S - Good [Enzymatic normal Pentecostalism activity/volume] in Serum Hosp ital or Plasma Protein [Mass/volume] in 7.8 g/dL 6.4-8.2 BSCHS - Good Serum or Plasma [facility] Albumin [Mass/volume] in 2.4 g/dL 3.5-4.7 Below low BS[facility]S - Good Serum or Plasma by normal Pentecostalism Bromocresol purple (BCP) Hospi manju dye binding method Globulin [Mass/volume] in 5.4 g/dL 1.7-4.7 Above high BSC HS - Good Serum by calculation [facility] Albumin/Globulin [Mass 0.4 0.7-2.8 Below low BS[facility]S - Good Ratio] in Serum or Plasma normal [facility] ID Date Data Source [id number] 03/19/2020 12:00:00 AM EDT [facility] Name Value Range Interpretation Code Description Data [facility] rce(s) Supporting Document(s ) 2019-nCoV [facility] RNA XXX BENITO+probe- Imp This lab was ordered by ARINA LEIVA [facility] and reported by [employer]. ID Date Data Source [id number] 03/18/2020 07:37:05 PM EDT [facility] Bedside and Verbal shift change report g iven to kamar Carlin (oncomingnurse) by DIANE KIDD RN (offgoing nurse). R eport included the followinginformation SBAR, Kardex, Intake/Output, MAR and Recent Re sults. Name Value Range Interpretation Code Description Data [facility] rce(s) Supporting Document(s ) ID Date Data Source [id number] 03/18/2020 07:17:09 PM EDT [facility] Progress NotePatient: Carlyle Pate Sex: male DOA: 03/13/2020Date of : 1945 Age: 75 y.o. LOS: LOS: 5 daysSubjective:On trach collar this AM, Femoral line removed. No acute overnight events.Objective:Visit VitalsBP 99/64Pul se (!) 53Temp 97.8 F (36.6 C)Resp 15Ht 5' 7" (1.702 m)Wt 88.6 kg (195 lb 6.4 oz)Sp O2 100%BMI 30.60 kg/m Physical Exam:Physical ExamConstitutional: Appearance: He is ill-appearing.HENT: Head: Normocephalic and atraumatic.Eyes: Extraocular Movements : Extraocular movements intact.Neck: Musculoskeletal: Neck supple.Cardiovascu lar: Rate and Rhythm: Normal rate and regular rhythm.Pulmonary: Effort: Pulm onary effort is normal. Breath sounds: Normal breath sounds.Abdominal: Genera l: Abdomen is flat. Palpations: Abdomen is soft.Skin: General: Skin is warm.Neuro logical: General: No focal deficit present.+ PEG and trachRUE tenders and e dematousIntake and Output:Current Shift: No intake/output data recorded.Last three s hifts: 03/17 07 - 03/18 1900In: 3301 [I.V.:841]Out: 1924 [Urine:1924]Lab/Data Reviewed:BMP:Lab ResultsComponent Value Date/Time NA 147 (H) 03/18/2020 03:44 AM K 3.6 03/18/2020 03:44 AM CL 119 (H) 03/18/2020 03:44 AM CO2 21 03/18/2020 03 :44 AM AGAP 10 03/18/2020 03:44 AM GLU 118 (H) 03/18/2020 03:44 AM BUN 48 (H) 03/18 03:44 AM CREA 1.31 (H) 03/18/2020 03:44 AM GFRAA >60 03/18/2020 03:44 AM GFRNA 5 6 (L) 03/18/2020 03:44 AMCMP:Lab ResultsComponent Value Date/Time NA 147 (H) 03/18/2020 03:44 AM K 3.6 03/18/2020 03:44 AM CL 119 (H) 03/18/2020 03:44 AM CO2 21 03/18/2020 03:44 AM AGAP 10 03/18/2020 03:44 AM GLU 118 (H) 03/18/2020 03:44 AM BUN 48 (H) 03/18/2020 03:44 AM CREA 1.31 (H) 03/18/2020 03:44 AM GFRAA >60 03/18/2020 03:44 AM GFRNA 56 (L) 03/18/2020 03:44 AM CA 8.4 (L) 03/18/2020 03:44 AM ALB 2.3 (L) 03/18/2020 03:44 AM TP 7.2 03/18/2020 03:44 AM GLOB 4.9 (H) 03/18/2020 03:44 AM AGRA T 0.5 (L) 03/18/2020 03:44 AM SGOT 54 (H) 03/18/2020 03:44 AM ALT 26 03/18/2020 03 :44 AMCBC:Lab ResultsComponent Value Date/Time WBC 19.0 (H) 03/18/2020 03:44 AM HGB 9.6 (L) 03/18/2020 03:44 AM HCT 30.7 (L) 03/18/2020 03:44 AM PLT 127 (L) 03/01 03:44 AMAll Cardiac Markers in the last 24 hours: No results found for: CPK , CK, CKMMB,CKMB, RCK3, CKMBT, CKNDX, CKND1, GENO, TROPT, TROIQ, HARDEEP, TROPT, TNIPOC, BNP,BNPPRecent Glucose Results:Lab ResultsComponent Value Date/Time GLU 118 (H) 03/18/2020 03:44 AMABG: No results found for: PH, PHI, PCO2, PCO2I, PO2, PO2I, HC O3, HCO3I, FIO2,BXT6SIYAKY: No results found for: APTT, PTP, INR, INREXT, INREXTLiver Panel:Lab ResultsComponent Value Date/Time ALB 2.3 (L) 03/18/2020 03:44 AM TP 7.2 0 03/18/2020 03:44 AM GLOB 4.9 (H) 03/18/2020 03:44 AM AGRAT 0.5 (L) 03/18/2020 03:44 AM SGOT 54 (H) 03/18/2020 03:44 AM ALT 26 03/18/2020 03:44 AM AP 121 (H) 0 03:44 AMPancreatic Markers: No results found for: AMYLPOCT, AML, LIPPOCT, LPSEM edications ReviewedCurrent Facility-Administered Medications: vit s A and D-white pet-lanolin (A&D) ointment, , Topical, PRN, Pati Childs MD doxycy brooks (VIBRAMYCIN) 100 mg in 0.9% sodium chloride (MBP/ADV) 100 mL MBP,100 mg, In traVENous, Q12H, Chan Martinez MD hydrocortisone Sod Succ (PF) (SOLU-ANGI F) injection 100 mg, 100 mg,IntraVENous, BID, Pati Childs MD, 100 mg at 03/18/20 1 836 amLODIPine (NORVASC) tablet 10 mg, 10 mg, Oral, DAILY, Pati Childs MD, 10m g at 03/18/20 0910 ALPRAZolam (XANAX) tablet 0.25 mg, 0.25 mg, Oral, QID PRN, Pati Childs MD, 0.25 mg at 03/18/20 1657 traMADoL (ULTRAM) tablet 50 mg, 50 mg, O ral, Q6H PRN, Ezequiel Christopher MD,50 mg at 03/18/20 1657 cefTRIAXone (ROCEPHIN) 2 g in 0.9% sodium chloride (MBP/ADV) 50 mL MBP, 2 g,IntraVENous, Q24H, Sandi Lares MD, Last Rate: 100 mL/hr at 03/18/20 1435, 2 gat 03/18/20 1435 acetaminophen (TYLEN OL) solution 650 mg, 650 mg, Per G Tube, Q4H PRN, Dusty Curiel MD, 650 mg at 0 1657 levothyroxine (SYNTHROID) tablet 200 mcg, 200 mcg, Per G Tube, ACB, FloresPaul MD, 200 mcg at 03/18/20 0546 sodium chloride (NS) flush 5-10 mL, 5-10 mL, In traVENous, PRN, Chiquita Velazquez MD ondansetron (ZOFRAN) injection 4 mg, 4 mg, IntraVENo us, Q6H PRN, Chiquita Velazquez MD enoxaparin (LOVENOX) injection 40 mg, 40 mg, SubCUT Aneous, Q24H, Sd Gramajo MD, 40 mg at 03/17/202037 pantoprazole (PROTONIX) 40 mg in 0.9% sodium chloride 10 mL injection, 40 mg,IntraVENous, DAILY, Sd Palmer MD, 40 mg at 03/18/20 0910Continued hospitalization is indicat ed due to sepsisAssessment/PlanActive Problems: Septic shock (HCC) (03/13/2020 ) Bruise (03/18/2020) Overview: Right sacral area light purple 1)Septic shock due to Klebsiella bacteremia/UTI:Off presserscont IV rocephin per C&SDoxy add ed by IDRepeat blood cx (-)DC IVFPulm followingDC Midodrine, DC SolucortefWBC improved todayUrine strep AG and legionella (-)CT chest/abd/pelvis unrevealingR wris t Xray w/o acute OMReplace kelly by urologyPICC when blood Cx (-)Recheck WBC in AM2)Acute respiratory failure:resolvedCont vent by Kellie jernigan anaging ventCont nebs3)Metabolc encephalopathy:resolvedDue to #1 and #24 )Anxiety:Restarted on pre-hospitalization xanaximproved5)Hypokalemia:replacedFull codeDVT ppx: Lovenox Name Value Range Interpretation Code Description Data Annabelle rce(s) Supporting Document(s ) ID Date Data Source [id number] 03/18/2020 04:36:35 PM EDT [facility] ID Progress Note03/18/2020Subjective:C/O Right arm tenderness according to the RN.Afebrile.Current Facility-Administere d MedicationsMedication Dose Route Frequency vits A and D-white pet-lanolin (A&D) oin tment Topical PRN amLODIPine (NORVASC) tablet 10 mg 10 mg Oral DAILY ALPRAZol am (XANAX) tablet 0.25 mg 0.25 mg Oral QID PRN traMADoL (ULTRAM) tablet 50 mg 50 mg Oral Q6H PRN cefTRIAXone (ROCEPHIN) 2 g in 0.9% sodium chloride (MBP/ADV) 50 mL MBP 2 gIntraVENous Q24H acetaminophen (TYLENOL) solution 650 mg 650 mg Per G Tube Q4H PRN levothyroxine (SYNTHROID) tablet 200 mcg 200 mcg Per G Tube ACB sodium chloride (NS) flush 5-10 mL 5-10 mL IntraVENous PRN ondansetron (ZOFRAN) in jection 4 mg 4 mg IntraVENous Q6H PRN enoxaparin (LOVENOX) injection 40 mg 40 mg SubCUTAneous Q24H pantoprazole (PROTONIX) 40 mg in 0.9% sodium chloride 10 mL injection 40 mgIntraVENous DAILYObjective:Vitals:Visit VitalsBP (!) 126/92Pulse 87Temp 97.6 F (36.4 C)Resp 20Ht 5' 7" (1.702 m)Wt 88.6 kg (195 lb 6 .4 oz)SpO2 99%BMI 30.60 kg/m Tmax: Temp (24hrs), Av.5 F (36.4 C), Min:97.1 F (36.2 C), Max:97.7 F(36.5 C)Exam:General: AlertNeck: Trach tube i s in place.Lungs: Clear to auscultation bilaterallyCV: Regular rate and rhythmA bdomen: Soft, non-tender. bowel sounds normal. non-distendedExtremities: Right Arm with minimal erythema on the inner bicepLabs:Recent Labs 03/16/2018WBC 19.0* 35.4* 40.5* 51.9*HGB 9.6* 9.2* 9.3* 9.4* PLT 127* 105* 130 137BUN 48* 53* -- 55*CREA 1.31* 1.45* -- 1.62*SGOT 54* 76* -- 124*AP 121* 113 -- 112TBILI 0.4 0.4 -- 0.6Cultures:No results found for: SDESLa b ResultsComponent Value Date/Time Culture result: NO GROWTH 2 DAYS 03/16/2020 06:3 4 PM Culture result: (A) 03/15/2020 11:45 AM KLEBSIELLA PNEUMONIAE : Refer to previou s culture(s) for susceptibilityresults Culture result: (A) 03/15/2020 11:40 AM KLEBSIELLA PNEUMONIAE : Refer to previous culture(s) for susceptibilityresults Cul ture result: LIGHT GROWTH PSEUDOMONAS AERUGINOSA (A) 03/14/2020 11:00 PM Cultu re result: (A) 03/13/2020 09:12 PM KLEBSIELLA PNEUMONIAE : Refer to previou s culture(s) for susceptibilityresults Culture result: (A) 03/13/2020 09:00 PM KLEBSIELLA PNEUMONIAE : Refer to previous culture(s) for susceptibilityresults Cul ture result: >100,000 COLONIES/mL KLEBSIELLA PNEUMONIAE (A) 03/13/2020 10:50AM Cultur e result: (A) 03/13/2020 10:40 AM KLEBSIELLA PNEUMONIAE : Refer to previous culture(s ) for susceptibilityresults Culture result: KLEBSIELLA PNEUMONIAE (A) 03/13/2020 10: 20 AMRadiology:No results found.Line/Insert Date:Assessment:1. 75 year old male with gram negative (Klebsiella) sepsis, probably secondaryto urinary tract infection.2. P ossible Cellulitis.3. Respiratory failure.4. H/O Aphasia, CAD, Cancer of head and nec k. Plan: 1. Now on IV Ceftriaxone, based on cs findings. Will add Doxycycline IVPB.2 . Off of IV Zosyn.3. Off of IV Vancomycin and Tobramycin.4. Repeat another set of bloo d cs sent on 03/16, prelim negative.5. CT scan of the chest/abd/pelvis reviewed.6. Vandana tor labs. WBC now improving.Chan Martinez MD Name Value Range Interpretation Code Description Data Annabelle rce(s) Supporting Document(s ) ID Date Data Source [id number] 03/18/2020 04:06:45 PM EDT [facility] Patient is seen for transfer [facility] chair to bed. Patient is max A forsit to stand from reclining chair. Patient took 2 steps with max assist fromreclining chair to bed. Patient is max assist for bed mo bility. Patient issupine in bed with Nurse at bedside. Time: 09 minutesJomitch Monzon, PT,DPT Name Value Range Interpretation Code Description Data Annabelle rce(s) Supporting Document(s ) ID Date Data Source [id number] 03/18/2020 04:00:25 PM EDT [facility] OT treatment:Pt was seated in recliner w hen therapy arrived. Pt was assisted back to bed. Ptrequired max A for sit to stand f rom a lower surface. Pt was able to take about2 steps to sit on bed. Pt was retur shea supine with max A and was left in NAD. Ptwas positioned with RUE elevated secon arnold to increased edema.Time: 10 minutesElizabeth Masci, OTR/L Name Value Range Interpretation Code Description Data Annabelle rce(s) Supporting Document(s ) ID Date Data Source [id number] 03/18/2020 03:59:01 PM EDT [facility] Consult NotePatient: Carlyle Pate Sex: male DOA: 03/13/2020Date of : 1945 Age: 75 y.o. LOS: LOS: 5 daysHPI:Carlyle Pate is a 75 y.o. male who has been seen for evaluation of skin changesto the right sacral area. He was admitted 03/13/2020 with septic shock. He has atrach and PEG, right sided paralysis. B raden score 13. He is on a low air losssurface with preventive care maintai shea. He is evaluated in the SICU.Past Medical History:Diagnosis Date Anxiety Aphasia Atrial fibrillation (HCC) with ventricular tachycardia Bilateral carotid artery di sease (HCC) CAD (coronary artery disease) Chronic cystitis Dysphagia Head and ne ck cancer (HCC) Hemiparesis (HCC) right side HLD (hyperlipidemia) Hypertension Hyp oxemia Infarction of left basal ganglia (HCC) intracranial hemorrhage Pneumonia Prostate cancer (HCC) Respiratory failure (HCC) S/P percutaneous endoscopic gastr ostomy (PEG) tube placement (HCC) Thymus cancer (HCC) Thyroid cancer (HCC)Past S urgical History:Procedure Laterality Date HX OTHER SURGICAL thymus gland removed HX TRACHEOSTOMY IR INSERT GASTROSTOMY TUBE PERCHistory reviewed. No pertinent famil y history.Social HistorySocioeconomic History Marital status: Spouse name: N ot on file Number of children: Not on file Years of education: Not on file Highest education level: Not on fileTobacco Use Smoking status: Former Smoker Smokeless tobacco: Never UsedSubstance and Sexual Activity Alcohol use: Not Currently Dr ug use: NeverCurrent Facility-Administered MedicationsMedication Dose Route Frequen cy vits A and D-white pet-lanolin (A&D) ointment Topical PRN amLODIPine (NORV ASC) tablet 10 mg 10 mg Oral DAILY ALPRAZolam (XANAX) tablet 0.25 mg 0.25 mg Oral QID PRN traMADoL (ULTRAM) tablet 50 mg 50 mg Oral Q6H PRN cefTRIAXone (KAYCEE EPHIN) 2 g in 0.9% sodium chloride (MBP/ADV) 50 mL MBP 2 gIntraVENous Q24H acetamin ophen (TYLENOL) solution 650 mg 650 mg Per G Tube Q4H PRN levothyroxine (SYNTHROID) tablet 200 mcg 200 mcg Per G Tube ACB sodium chloride (NS) flush 5-10 mL 5-10 mL IntraVENous PRN ondansetron (ZOFRAN) injection 4 mg 4 mg IntraVENous Q6H PRN enoxaparin (LOVENOX) injection 40 mg 40 mg SubCUTAneous Q24H pantoprazole (PROTONI X) 40 mg in 0.9% sodium chloride 10 mL injection 40 mgIntraVENous DAILYNo Know n AllergiesVisit VitalsBP (!) 126/92Pulse 87Temp 97.6 F (36.4 C)Resp 20Ht 5' 7" (1.702 m)Wt 88.6 kg (195 lb 6.4 oz)SpO2 99%BMI 30.60 kg/m Labs Reviewed:CMP:Lab ResultsComponent Value Date/Time NA 147 (H) 03/18/2020 03:44 AM K 3.6 03/18/2020 03: 44 AM CL 119 (H) 03/18/2020 03:44 AM CO2 21 03/18/2020 03:44 AM AGAP 10 03/18/2020 0 3:44 AM GLU 118 (H) 03/18/2020 03:44 AM BUN 48 (H) 03/18/2020 03:44 AM CREA 1.31 (H) 03/18/2020 03:44 AM GFRAA >60 03/18/2020 03:44 AM GFRNA 56 (L) 03/18/2020 03:44 A M CA 8.4 (L) 03/18/2020 03:44 AM ALB 2.3 (L) 03/18/2020 03:44 AM TP 7.2 03/18/2020 03 :44 AM GLOB 4.9 (H) 03/18/2020 03:44 AM AGRAT 0.5 (L) 03/18/2020 03:44 AM SGOT 54 (H) 03/18/2020 03:44 AM ALT 26 03/18/2020 03:44 AMCBC:Lab ResultsComponent Value Date/Ti me WBC 19.0 (H) 03/18/2020 03:44 AM HGB 9.6 (L) 03/18/2020 03:44 AM HCT 30.7 (L) 03:44 AM PLT 127 (L) 03/18/2020 03:44 AMRadiology:Xr Wrist Rt Ap/latResult Edward e: 03/16/2020XR WRIST RT AP/LAT INDICATION.: . Swelling and pain on the wrist, with se psis..TECHNIQUE.: 3 views of the right wrist were acquired. COMPARISON.: No priorstu dies are available for comparison. FINDINGS.: Advanced, multifocaldegenerative changes are noted including at the radiocarpal, triscaphe, thumbcarpal metacarpal and th umb metacarpal phalangeal joints. There is deformity andsclerosis of the scaphoid w hich may be degenerative. There is no evidence ofacute fracture. IMPRESSION.: Degenerative changes as described above. Noradiographic evidence of osteomyelitis ; however, if there is clinical concern,further evaluation with MRI woul d be warranted. PS Electronically Signed: MD Renan 03/16/2020 9:39 PMCt Ayleen espinosa Wo ContResult Date: 03/13/2020CT HEAD WO CONT Clinical data: AMS Priors: None. Te chnique: Multiple axialimages were obtained from the skullbase to the vertex without administration ofintravenous contrast. Sagittal and coronal reconstruction was performed.Utilizing desk interviewer algorithm the examination was performed to optimiz eimaging quality by utilizing the lowest possible radiation dose. Findings: There is no evidence of intracranial hemorrhage, masses, acute cortical infarction, ormid line shift. There are no extra-axial fluid collections. There is noevidenceof hydr ocephalus. There is periventricular low-attenuationparticularlywithin the le ft posterior frontoparietal lobe suggestive of smallvessel ischemic change probably chronic. There is an old right posteriorparietal encephalomalacia with small dystrophic calcification consistent with aremote infarction. Vascular calci fications noted. Sulcal prominencesuggestive of brain parenchyma l volume loss. The bony calvarium shows noevidence of fracture or destructive jesus ny process.IMPRESSION: Left periventricular hypoattenuation suggestive of small vess elischemic change probably chronic. 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 Frandy vidence of hemorrhage. Should clinical concern persists then considerfollow-up MRI.Ct Chest Abd Pelv Wo ContResult Date: 03/16/2020CT CHEST ABD PELV WO CONT Histo ry: Persistent bacteremia and worseningleukocytosis. Technique: CT of the chest, abdomen and pelvis was performed fromthe thoracic inlet to the pubic symp hysis without oral and intravenous contrast.Coronal and sagittal reformats were performed. The lack of intravenous contrastand oral contrast limits evaluat ion of the solid abdominal viscera and softtissues. Using desk interviewer's algori thms the examination was performed tooptimize image quality while utilizing the lowest possible radiation dose. Oneor more of the following doses reduction techniques was used: Decreasing the mAand or kV, automatic exposure control and iterative reconstru ction algorithm.Comparison: No priors available for comparison. Findings: Ther e is atracheostomy tube. There are bilateral pleural effusions with adjacentatelectas is. There is fluid in the major fissure on the left. There areextensive coronary ar darius calcifications. There is cardiomegaly. There is nomediastinal, hilar or axillar y lymphadenopathy. There are gallstones. There is a2.2 cm hypodensity in the midp ortion of the right kidney likely a cyst howevernot fully evaluated on this nonco ntrast exam. No hydronephrosis, hydroureter orrenal calculus is identified. There ar e several calcifications in the dependentportion of the bladder compatib le with bladder calculi. There are prostateseeds. The liver, spleen, pancre as and adrenal glands appear unremarkable. Thereis a G-tube identified in the stoma ch. No abdominal, pelvic or inguinallymphadenopathy is identified. T here are small to moderate pelvic free fluid. Nodilated loops of bowel are identified. There is diverticulosis of the sigmoidcolon without evidence of acute diverticulitis . The appendix is not identifiedhowever there is no secondary evidence for acute appen dicitis. There ismoderateatherosclerotic calcification of the aorta with the mid abdominal aortameasuring 2.6 cm. There is a moderately S-shaped scoliosis of the tho racolumbarspine.IMPRESSION: Small to moderate bilateral pleural effusions with adjacen tatelectasis. Superimposed infiltrates are difficult to exclude. There is pelvicfre e fluid. There are gallstones. There is diverticulosis without evidence acutediv erticulitis. There is a 2.2 cm hypodensity in the midportion of the rightkidney not fu lly evaluated on this noncontrast exam. PS Electronically Signed:Kaleb Brambila 03/16/2020 2:30 PMXr Chest PortResult Date: 03/14/2020CHEST one view HISTORY: Followu p lung pathology. Comparison is made to03/13/2020. Accounting for differences in technique ( ) there has been nosignificant change of a lower lobe atelectasis. How ever there appears to be anincrease of an infiltrate in the right midlung or lower lung field. No otherinterval change is noted.IMPRESSION: Increase of right midl gardenia or lower lung field field infiltrate.Xr Chest PortResult Date: 03/13/2020XR CHEST PORTABLE-SINGLE VIEW PRIOR: None HISTORY: Limited to that provided bythe emergency department at the time of this examination; [facility] Pt has trac h collar and vented FINDINGS: Mild increased interstitialmarkings are identified bila terally consistent with infiltrates. There is mildhaziness of the costophrenic angle o n the left suggesting a small effusion. Noright effusion is present. A tracheost marina is present and in goodposition-unchanged. The cardiac silhouette is at the upper l imits of normal tomildly enlarged. There is a significant dorsal scoliotic curvature o f thethoracic spine.IMPRESSION: 1. Mild increased interstitial margins bilateral ly consistent withinfiltrates. 2. Small left effusion. 3. Upper limits of normal to m ild cardiacenlargement.Nc Xr Technologist ServiceResult Date: 03/18/2020History: Ur ethral stricture. FINDINGS: 5 digitally acquired fluoroscopic imageobtained intr aoperatively reveal contrast filling the urinary bladder. A Foleycatheter is note d in situ. These images are on file for clinical review.Fluoroscopy time 0.[address] Carreon.Duplex Upper Ext Venous RightResult Date: 03/13/2020DUPLEX UPPER EXT VENOUS RIGHT Clinical indication: evaluate of RUE DVT . Edema.Priors: None . FINDINGS: The right subclavian vein up to the brachial vein iscompressible and maegan ws normal phasic flow without an intraluminal thrombus. Inaddition, the right commercial internship al jugular vein, cephalic vein and the basilic veinis also patent.IMPRESSION: N o evidence of deep vein thrombosis within the right upperextremity venous circulation . PS Electronically Signed: Juan Acevedo MD03/13/2020 5:10 PMReview of SystemsRevi ew of systems not obtained due to patient factors.AssessmentPHYSICAL EXAM:General: [x]WD []Cachectic []Thin [x]Obese[]Disheveled [x]Ill Appearing [x]Critical [x]Chronic[]No acute DistressHEENT:[x]Normal Cephalc/Atraumat icHearing Intact to Voice: [x]Yes []NoRespiratory: []Wheezing [x]No W heezingCardiac:LE Edema []Yes []NoAbdominal:[x]Soft / Non distendedSki n:Sacral skin with 4 x 3 cm light purple discoloration with irregular borders,int act skin.Heels have intact skin.Pulses:[x]Pedal Pulses, not palpate d, skin is warm and pinkNeuro:[x]Alert [x]Limited mobilityFollows Command [x]Yes , simple []NoImpressionBruise to the right sacral areaActive Problems: Septi c shock (HCC) (03/13/2020)PlanContinue protective Allevyn dressing every 72 nasima rs.Continue preventive and supportive care.Please re consult if situation robert rodriguez.Patient with multi organ failure with high risk for skin failure. Name Value Range Interpretation Code Description Data Annabelle rce(s) Supporting Document(s ) ID Date Data Source [id number] 03/18/2020 03:14:20 PM EDT [facility] physical Therapy TREATMENTPatient: Chris Pate (75 y.o. male)Date: 03/18/2020Diagnosis: Septic shock ([facility]) [ A41.9, R65.21] <principal problem not specified>Procedure(s) (LRB):UNDER FLORO SCOPY INSERTION OF KELLY CATHETER CYSTOGRAM (N/A) 2 Days Post-OpPrecautions: Fall, S kinASSESSMENT:Patient is alert and oriented to person, place and situation. Patient presentswith generalized muscle weakness with more weakness to right side as compared tothe left side, B UE edema, 10/10 right UE pain with movement/touch, decreaseendura nce and impaired standing balance resulting in difficulty with functionalmobility an d increase need for assistance for bed mobility and transfers.Patient is mod as sist for bed mobility with unsupported at bedside. Patientpresents with extreme pa in with touch or movement of right UE limiting hisability to tolerate ROM of r ight UE and holding to RW. Sit to stand with modassist x 2 with supported stand for 2 0 seconds. Patient is transferred to areclining chair. Patient has difficulty with speech and became occasionallyfrustrated when he was unabl e to communicate with staff.Progression toward goals:[] Improving appropriate ly and progressing toward goals[x] Improving slowly and progressing toward goals[] Not making progress toward goals and plan of care will be adjustedPLAN:Osorio sanchez continues to benefit from skilled intervention to address the aboveimpairm ents. Continue treatment per established plan of care.Discharge Recommendations: Inpatient RehabFurther Equipment Recommendations for Discharge: wheelcha ir 18 inchSUBJECTIVE:Patient stated "."OBJECTIVE DATA SUMMARY:Critical Behav ior:Neurologic State: AlertOrientation Level: Oriented to person, Oriented to place, O riented to situationCognition: Follows commandsSafety/Judgement: Awareness of e nvironmentFunctional Mobility Training:Bed Mobility:Rolling: Minimum assistanceSupi ne to Sit: Moderate assistance;Assist x2Sit to Supine: Moderate assistance;Assist x2 Transfers:Sit to Stand: Moderate assistance;Assist p3Nedri to Sit: Modera te assistance;Assist x2Bed to Chair: Moderate assistance;Assist x2(chair brought garett d pt)Balance:Sitting: ImpairedSitting - Static: Good (unsupported)Sitting - Jeri adis: Fair (occasional)Standing: Impaired;With supportStanding - Static: FairStanding - Dynamic : PoorAmbulation/Gait Training:Neuro Re-Education:Patient sits for a few geetha robert at bed side with manual/verbal cueing properposture.Patient stands supported for few minutes with manual and verbal Cueing forproper postureTherapeutic Exer cises/Activity:AROM/AAROM of UE and LE in sitting and SupinePain:Pain Scale 1: Vis ualPain Intensity 1: 8Pain Location 1: Shoulder;WristPain Orientation 1: RightA ctivity Tolerance:Patient tolerated treatment well.Please refer to the flowsheet for v ital signs taken during this treatment.After treatment:[] Patient left in no appar ent distress sitting up in chair[x] Patient left in no apparent distress in bed[x] Call pleitez left within reach[] Nursing notified[] Caregiver present[ ] Bed alarm activatedComments:COMMUNICATION/COLLABOR ATION:The patient's plan of care was discussed with: Registered NurseMarcial cheng, PT,DPT Time Calculation: 28 mins Name Value Range Interpretation Code Description Data Annabelle rce(s) Supporting Document(s ) ID Date Data Source [id number] 03/18/2020 02:42:39 PM EDT [facility] NUTRITIONFollow Up NoteRecommendations:C ontinue Osmolite 1.5@60mL/hr with 30mL prostat bid.Suggest increasing free H2O to 125mL Q 3hr if feasible 2* elevated Na+, fluidlosses with loose BMs.Consider jones ge from acetaminophen solution to tablets as it may contribute toloose stools.Subject idalmis:Nutrition rx: Osmolite 1.5@60mL/hr with 30mL prostat bid (2360kcal, 120gm prot,2 93gm CHO, 71gm fat, 2592mg K+, 1097mL free H2O). and 200mL free H2O Q 6hr;running at goal (total of 1897mL free H2O).1 loose BM today2 loose BMs loose BMs 03/16 Assessment:Na+ 148, Cr 1.31 (improved from last assessment)C.diff negativeReceiving acetaminophen solution ~ once daily, rocephin3+ RUE edemaPurple/red area on s acrum noted; skin intactToday's weight 88.6kg, up 5.1kg form initial bedscale weight with net (+) I/O >6,000mL..Nutrition Diagnosis:Dx remains same: increased pro tein needsIntervention:Continue Osmolite 1.5@60mL/hr with 30mL prostat bid.Sugges t increasing free H2O to 125mL Q 3hr if feasible 2* elevated Na+, fluidlosses wi th loose BMs.Consider change from acetaminophen solution to tablets as it may contribute toloose stools.Goals:Meet >80% estimated needs throughout LOSMonitoring and Evaluation:Follow ENMonitor GI statusMonitor Cr, Na+/volume statusDisch arge Planning:Pending clinical courseFrances David Lawson RD Name Value Range Interpretation Code Description Data Annabelle rce(s) Supporting Document(s ) ID Date Data Source [id number] 03/18/2020 02:42:34 PM EDT [facility] Problem: Altered nutritionGoal: *Optimiz e nutritional statusDescription:Pt meets >80% of estimated nutritional needs within 3- 7 daysOutcome: Progressing Towards GoalContinue Osmolite 1.5@60mL/hr with 3 0mL prostat bid to meet energy and proteinneeds.Suggest increasing free H2O to 125mL Q 3hr if feasible 2* elevated Na+, fluidlosses with loose BMs. Name Value Range Interpretation Code Description Data Annabelle rce(s) Supporting Document(s ) ID Date Data Source [id number] 03/18/2020 02:39:28 PM EDT [facility] Problem: Self Care Deficits Care Plan (A dult)Goal: *Therapy Goal (Edit Goal, Insert Text)Description: Occupational Therapy G oalsInitiated ) Patient will perform upper body dressing with moderat e assistance in 7day(s).2) Patient will perform toilet transfer with minimal ass istance/contact guardassist in 7 day(s).3) Patient will perform bed mobility with m inimal assistance/contact guardassist in 7 day(s).Note: OCCUPATIONAL THERAPY EVALUA TIONPatient: Carlyle Pate (75 y.o. male)Date: 03/18/2020Primary Diagnosis: S eptic shock (HCC) [A41.9, R65.21]Procedure(s) (LRB):UNDER FLOROSCOPY INSERTION OF FOLE Y CATHETER CYSTOGRAM (N/A) 2 Days Post-OpPrecautions: Fall, SkinASSESSMEN T :Based on the objective data described below, the patient presents with no acti vemovement in RUE, increased swelling and pain in RUE, impaired balance, impairedt ransfers, difficulty with speech and decreased ability to perform ADLsindepen dently. Pt performed supine to sit with mod A and was able to situnsupported in bed. P t presents with ability to perform knee kicks b/l ( LLE >RUE). Pt performed sit to sta nd with RW and mod A x2 and was able to stand forabout 20 seconds. Pt had to be suppor roby from behind as pt was unable to bareweight through R hand and did not to lerate therapist supporting the R side. Ptwas seated in chair and was positioned in op timal position. Pt was left in NADwith all needs within reach and RN presents.Patie nt will benefit from skilled intervention to address the above impairments.Patient's rehabilitation potential is considered to be GoodFactors which may influence rehabili tation potential include:[] None noted[] Mental ability/statu s[] Medical condition[] Home/family situation and support syst ems[] Safety awareness[x] Pain tolerance/management[] Other:PLAN :Recommendations and Planned Interventions:[x] Self Car e Training [x] TherapeuticActivities[x] F unctional Mobility Training [] Cognitive Retraining[x] Th erapeutic Exercises [x] EnduranceActivities[x] Bal ance Training [x] NeuromuscularRe-Education[] Visual/Perceptual Training [x] Home Safety Training[x] Patient Education [] FamilyTraining/Education[] Other (comment):Frequency/Duration: Patient will be followed by occupational therapy 1 time perday/2-3 days per week to address goals.Discharge Recommendations: RehabFu rther Equipment Recommendations for Discharge: tbdSUBJECTIVE:Patient non valerie balOBJECTIVE DATA SUMMARY:Past Medical History:Diagnosis Date Anxiety Aphasia A trial fibrillation (HCC) with ventricular tachycardia Bilateral carotid artery dis ease (HCC) CAD (coronary artery disease) Chronic cystitis Dysphagia Head and neck cancer (HCC) Hemiparesis (HCC) right side HLD (hyperlipidemia) Hypertension Hypoxe reddy Infarction of left basal ganglia (HCC) intracranial hemorrhage Pneumonia Prosta te cancer (HCC) Respiratory failure (HCC) S/P percutaneous endoscopic gastrostomy (PEG ) tube placement (HCC) Thymus cancer (HCC) Thyroid cancer (HCC)Past Surgical Histor y:Procedure Laterality Date HX OTHER SURGICAL thymus gland removed HX TRACHEOSTOMY IR INSERT GASTROSTOMY TUBE PERCPrior Level of Function/Home Situation: [employer] pt was in r ehabHome SituationHome Environment: Rehabilitation facilityOne/Two Story Res idence: One storyLiving Alone: NoSupport Systems: Spouse/Significant Other/Partne rPatient Expects to be Discharged to:: Rehabilitation facilityCurrent DME Used/ Available at Home: Walker, rolling, Cane, straight[] Right hand dominant [x] L eft hand dominantCognitive/Behavioral Status:Neurologic State: AlertOrientatio n Level: Oriented to person;Oriented to place;Oriented to situationCognition: Fo llows commandsSafety/Judgement: Awareness of environmentSkin: intactEdema: RUECoordin ation:Coordination: Grossly decreased, non-functional(RUE)Fine Motor Skills-Upp er: Left Intact;Right ImpairedGross Motor Skills-Upper: Left Intact;Right Impaired Balance:Sitting: ImpairedSitting - Static: Good (unsupported)Sitting - Dynamic: Dave r (occasional)Standing: Impaired;With supportStanding - Static: FairStanding - Dynamic : PoorStrength:LUE: WNLStrength: Grossly decreased, non-functional(RUE)To ne & Sensation:Tone: AbnormalSensation: IntactRange of Motion:LUE: WNLAROM: Juwan sly decreased, non-functional(RUE)PROM: Generally decreased, functional(RUE- inc reased pain with PROM )Functional Mobility and Transfers for ADLs:Bed Mobility:Supi ne to Sit: Moderate assistance;Assist x2Sit to Supine: Moderate assistance;Assist x2 Transfers:Sit to Stand: Moderate assistance;Assist x2Bed to Chair: Modera te assistance;Assist x2(chair brought behind pt)ADL Intervention: Pt edu: bed mobilit y, functional transfers, sitting balanceCognitive RetrainingSafety/Judgem ent: Awareness of environmentPain:Pain Scale 1: VisualPain Intensity 1: 8Pain Locatio n 1: Shoulder;WristPain Orientation 1: RightActivity Tolerance:GoodPlease refer to the flowsheet for vital signs taken during this treatment.After treatment:[x ] Patient left in no apparent distress sitting up in chair[] Patient left in no apparent distress in bed[x] Call pleitez left within reach[x] Nursing notified[] Hudson iver present[] Bed alarm activatedCOMMUNICATION/EDUCATION:The pat ient's plan of care was discussed with: patient / PT / RN[] Home safety educatio n was provided and the patient/caregiver indicatedunderstanding.[] Patient/family have participated as able in goal setting and plan of care.[x] Patient/family agre e to work toward stated goals and plan of care.[] Patient understands intent and g oals of therapy, but is neutral about his/herparticipation.[] Patient is unabl e to participate in goal setting and plan of care.Thank you for this referral.Elizabe th MasciTime Calculation: 33 mins Name Value Range Interpretation Code Description Data Annabelle rce(s) Supporting Document(s ) ID Date Data Source [id number] 03/18/2020 02:09:54 PM EDT [facility] SW cclinked to [place] SNFs as back up todd n. SCREEN completed and emailed to Mikayla. SW requested [facility] prior to di scharponcho. Destination TBA.CM will continue to follow.(1:07 pm) Pt has accepting bed at [facility], [facility], [facility] has accepting bedoffers post dc per liaisonlatricia. Per The jasmyn Dobbs, pt declined post dc.[facility] liaison to review and advis e.(1:46 PM): Pt has accepted bed at [facility] per Yane vines once medicallystable. (2:09 PM): Pt has accepted bed at [facility] per Racheal vines post dc. 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 Status post admission to [facility] on 01/31-> 03/12 --> [facility] --> [facility] 03/13secondary to lethargy, respiratory d istress, fever Hypotension-COVID (-) 03/13AnxietyPLAN:Cultures at [facility] showing GNR 4/4 bottles; Klebsiella sepsis, Clinicallyimproving, leukocytosis - now 19K down from 51.9- 40.5- 35.4KBlood cx- 03/15/2020- KLEBSIELLA PNEUMONIAE- On Cef triaxone- CT of the head with old right parietal infarct and left subacuteperive ntricular infarct- RUE edema asymmetric. Dopplers negative- Afib rate controlled. Patient on DVT treatment dosage of lovenox - willcontinueOn TC and sat 97%Will check if feasible for trach change to fenestrated cuffed- distant headneck cancer treated with radiation with subglottic stenosis - [facility] - [facility] o n [facility] weeks without problem andvocalizing. Trach was change there after initial trach back in december, [facility]-DVT and SUP prophy-U pdated Flory [phone] condition- asked to speak with ID Further recomme ndations will be based on the patient's response to recommendedtreatment and res ults of the investigation ordered.Subjective/Interval History:Pt o n TC 50% FiO2. Trying to mouth words. Anxious but no distress. Spoke withnurs e at bedside- ? NC and trach capped vs passe juliet valveROS:Review of systems not obta ined due to patient factors.Objective:Vital Signs:Visit VitalsBP 129/74Pulse 65Temp 97.7 F (36.5 C)Resp 19Ht 5' 7" (1.702 m)Wt 88.6 kg (195 lb 6.4 oz)SpO2 97%BMI 30.60 kg/m O2 Device: Tracheostomy, HumidifierTemp (24hrs), Av.8 F (36.6 C), Min:97.1 F (36.2 C), Max:98.5 F (36.9 C)Intake/Output:Last shift: 03/18 0 701 - 03/18 1900In: 310Out: 150 [Urine:150]Last 3 shifts: 03/16 1901 - 0 03/18 0700In: 3538 [I.V.:1508]Out: 2150 [Urine:2150]Intake/Output Summary (Last 24 hours) at 03/18/2020 0922Last data filed at 03/18/2020 0904Gross per 24 hourIntake 23 41 mlOutput 1350 mlNet 991 mlPhysical Exam:General: Alert, Awake, NAD, tramaine ative, on TC but anxiousHead: Normocephalic, without obvious abnormali ty, atraumatic.Lung: Adequate air entry bilateral equal, no rales, occ rhonchi, no wheezing.Heart: Regular rate & rhythm. S1 S2 present, no murmur, no gallop, no click,no rubAbdomen: Soft, NT, ND, +BS, no masses, no organomegalyExtremities: No pedal edema, no cyanosis, no clubbingPulses: 2+ and symmetric in DPNeurologic: Awake in NAD on TCCurrent Facility-Administered MedicationsMedication Dose Route Frequen cy amLODIPine (NORVASC) tablet 10 mg 10 mg Oral DAILY ALPRAZolam (XANAX) tablet 0. 25 mg 0.25 mg Oral QID PRN traMADoL (ULTRAM) tablet 50 mg 50 mg Oral Q6H DC N cefTRIAXone (ROCEPHIN) 2 g in 0.9% sodium chloride (MBP/ADV) 50 mL MBP 2 gIntraVE Nous Q24H acetaminophen (TYLENOL) solution 650 mg 650 mg Per G Tube Q4H PRN levot hyroxine (SYNTHROID) tablet 200 mcg 200 mcg Per G Tube ACB sodium chloride (NS) flu sh 5-10 mL 5-10 mL IntraVENous PRN ondansetron (ZOFRAN) injection 4 mg 4 m g IntraVENous Q6H PRN enoxaparin (LOVENOX) injection 40 mg 40 mg SubCUTAneous Q24H pantoprazole (PROTONIX) 40 mg in 0.9% sodium chloride 10 mL injection 40 mgIn traVENous DAILYDATA:Recent Results (from the past 24 hour(s))CBC WITH MANUAL DIFF Col lection Time: 03/18/20 3:44 AMResult Value Ref Range WBC 19.0 (H) 4.8 - 10.6 K/uL R BC 3.29 (L) 4.70 - 6.00 M/uL HGB 9.6 (L) 14.0 - 18.0 g/dL HCT 30.7 (L) 42.0 - 52.0 % M CV 93.3 81.0 - 94.0 FL MCH 29.2 27.0 - 35.0 PG MCHC 31.3 30.7 - 37.3 g/dL RDW 18.7 ( H) 11.5 - 14.0 % PLATELET 127 (L) 130 - 400 K/uL MPV 12.9 (H) 9.2 - 11.8 FL NRBC 0.1 (H) 0 PER 100 WBC ABSOLUTE NRBC 0.02 (H) 0.0 - 0.01 K/uL NEUTROPHILS 78 (H) 48.0 - 72 .0 % BAND NEUTROPHILS 4 (H) 0 % LYMPHOCYTES 8 (L) 18.0 - 40.0 % MONOCYTES 7 2.0 - 12.0 % EOSINOPHILS 2 0.0 - 7.0 % BASOPHILS 0 0.0 - 3.0 % METAMYELOCYTES 0 0 % MYELOCYTES 1 (H) 0 % PROMYELOCYTES 0 0 % BLASTS 0 0 % OTHER CELL 0 IMMATURE GRANULOCYTES 0 % A BS. NEUTROPHILS 15.8 (H) 2.3 - 7.6 K/UL ABS. LYMPHOCYTES 1.5 0.9 - 4.2 K/UL ABS. MONO CYTES 1.3 0.1 - 1.7 K/UL ABS. EOSINOPHILS 0.4 0.0 - 1.0 K/UL ABS. BASOPHILS 0.0 K/UL A BS. IMM. GRANS. 0.0 K/UL RBC COMMENTS 1+HYPOCHROMIA RBC COMMENTS 2+ANISOCYTOSI S PLATELET ESTIMATE DECREASED DF MANUALMETABOLIC PANEL, COMPREHENSIVE Col lection Time: 03/18/20 3:44 AMResult Value Ref Range Sodium 147 (H) 136 - 145 mmol/ L Potassium 3.6 3.5 - 5.1 mmol/L Chloride 119 (H) 98 - 107 mmol/L CO2 21 21 - 32 mmol/ L Anion gap 10 10 - 20 mmol/L Glucose 118 (H) 74 - 106 mg/dL BUN 48 (H) 7 - 18 mg/dL C reatinine 1.31 (H) 0.70 - 1.30 mg/dL GFR est AA >60 >60 ml/min/1.73m2 GFR est non-AA 56 (L) >60 ml/min/1.73m2 Calcium 8.4 (L) 8.5 - 10.1 mg/dL Bilirubin, total 0.4 0.2 - 1.0 mg/dL ALT (SGPT) 26 13 - 61 U/L AST (SGOT) 54 (H) 15 - 37 U/L Alk. phosphata se 121 (H) 45 - 117 U/L Protein, total 7.2 6.4 - 8.2 g/dL Albumin 2.3 (L) 3.5 - 4.7 g/dL Globulin 4.9 (H) 1.7 - 4.7 g/dL A-G Ratio 0.5 (L) 0.7 - 2.8Imaging:[x]I have personally reviewed the patient's radiographs[x]Radiographs reviewedCT amari st/abd/pel 03/16/2020 reviewed:Small to moderate bilateral pleural effusions wit h adjacent atelectasis.Superimposed infiltrates are difficult to exclude. Th ere is pelvic free fluid. There are gallstones. There is diverticulosis with out evidence acute diverticulitis. There is a 2.2 cm hypodensity in the midportion of the right kidney not fullyevaluated on this noncontrast examElectronically signed by :Jose M Delvalle MD03/18/2020 Name Value Range Interpretation Code Description Data [facility] rce(s) Supporting Document(s ) ID Date Data Source [id number] 03/18/2020 08:21:23 AM EDT [facility] History:Urethral stricture.FINDINGS:5 di gitally acquired fluoroscopic image obtained intraoperatively revealcontrast filling the urinary bladder. A Kelly catheter is noted in situ. Theseimages are on file f or clinical review.Fluoroscopy time 0.[address] Carreon. Signing date/time: 03/18/2020 8:21 AMSigned by: TRUE TERAN Name Value Range Interpretation Code Description Data [facility] rce(s) Supporting Document(s ) ID Date Data Source [id number] 03/18/2020 07:08:29 AM EDT [facility] Bedside and Verbal shift change report g iven to Liss KIDD rn (oncomingnurse) by Maria A Johansen RN (offgoing nurse). Repo rt included the followinginformation SBAR, Kardex, Intake/Output, MAR, Recent Resul ts, Med Rec Status andCardiac Rhythm sr. Name Value Range Interpretation Code Description Data [facility] rce(s) Supporting Document(s ) ID Date Data Source [id number] 03/18/2020 06:52:53 AM EDT [facility] Name Value Range Interpretation Description Data Sup porting Code Source(s) Document(s ) Leukocytes 19.0 4.8-10.6 Above high normal [facility] - [#/volume] in K/uL Good Blood by [facility] Automated count Hospital Erythrocytes 3.29 4.70-6.0 Below low normal [facility] - [#/volume] in M/uL 0 Good Blood by [facility] Automated count [facility] Hemoglobin 9.6 g/dL 14.0-18. Below low normal [facility] - [Mass/volume] in 0 Good Blood [facility] Hematocrit 30.7 % 42.0-52. Below low normal [facility] - [Volume 0 Good Fraction] of [facility] Blood by Hospital Automated count Erythrocyte mean 93.3 FL 81.0-94. [facility] - corpuscular 0 Good volume [Entitic [facility] volume] by Hospital Automated count Erythrocyte mean 29.2 PG 27.0-35. [facility] - corpuscular 0 Good hemoglobin [facility] [Entitic mass] Hospital by Automated count Erythrocyte mean 31.3 30.7-37. [facility] - corpuscular g/dL [address] [facility] [Mass/volume] by Automated count Erythrocyte 18.7 % 11.5-14. Above high normal [facility] - distribution 0 Good width [Ratio] by [facility] Hospital Platelets 127 K/uL 130-400 Below low normal [facility] - [#/volume] in Good Blood by [facility] Automated count [facility] Platelet mean 12.9 FL 9.2-11.8 Above high normal [facility] - volume [Entitic Good volume] in Blood [facility] by Automated Hospital count Nucleated 0.1 PER 0 Above high normal [facility] - erythrocytes/100 100 WBC Good leukocytes [facility] [Ratio] in Blood Hospital Nucleated 0.02 0.0-0.01 Above high normal [facility] - erythrocytes K/uL Good [#/volume] in [facility] Blood [facility] Segmented 78 % 48.0-72. Above high normal [facility] - neutrophils/100 0 Good leukocytes in [facility] Band form 4 % 0 Above high normal [facility] - neutrophils/100 Good leukocytes in [facility] Blood by [facility] count Lymphocytes/100 8 % 18.0-40. Below low normal [facility] - leukocytes in 0 [facility] Monocytes/100 7 % 2.0-12.0 [facility] - leukocytes in [facility] Eosinophils/100 2 % 0.0-7.0 [facility] - leukocytes in [facility] Basophils/100 0 % 0.0-3.0 [facility] - leukocytes in [facility] Metamyelocytes/1 0 % 0 [facility] - 00 leukocytes in Good Blood by [facility] Myelocytes/100 1 % 0 Above high normal [facility] - leukocytes in Good Blood by [facility] Promyelocytes/10 0 % 0 [facility] - 0 leukocytes in [facility] Blood by [facility] Blasts/100 0 % 0 [facility] - leukocytes in [facility] Blood by [facility] Other cells/100 0 [facility] - leukocytes in Good Blood by [facility] Immature 0 % [facility] - granulocytes/100 Good leukocytes in [facility] Blood by Hospital Automated count Segmented 15.8 2.3-7.6 Above high normal [facility] - neutrophils K/UL Good [#/volume] in [facility] Lymphocytes 1.5 K/UL 0.9-4.2 [facility] - [#/volume] in [facility] Monocytes 1.3 K/UL 0.1-1.7 [facility] - [#/volume] in [facility] Eosinophils 0.4 K/UL 0.0-1.0 [facility] - [#/volume] in [facility] Basophils 0.0 K/UL [facility] - [#/volume] in [facility] Immature 0.0 K/UL [facility] - granulocytes Good [#/volume] in [facility] Blood by Hospital Automated count 1+HYPOCHROMIA2+ANISOCYTOSIS Platelet adequacy [Presence] in Blood by [facility] Light microscopy Differential cell count method - Blood [facility] ID Date Data Source [id number] 03/18/2020 04:21:35 AM EDT [facility] Name Value Range Interpretation Description Data Sup porting Code Source(s) Document(s ) Sodium 147 136-145 Above high [facility] - [Moles/volume] in mmol/L normal Good Serum or Plasma [facility] Potassium 3.6 3.5-5.1 [facility] - [Moles/volume] in mmol/L Good Serum or Plasma [facility] Chloride 119 98-107 Above high [facility] - [Moles/volume] in mmol/L normal Good Serum or Plasma [facility] Carbon dioxide, 21 21-32 [facility] - total mmol/L Good [Moles/volume] in [facility] Serum or Plasma Hospital Anion gap in Serum 10 10-20 [facility] - or Plasma mmol/L [facility] Glucose 118 74-106 Above high [facility] - [Mass/volume] in mg/dL normal Good Serum or Plasma [facility] Urea nitrogen 48 7-18 Above high [facility] - [Mass/volume] in mg/dL normal Good Serum or Plasma [facility] Creatinine 1.31 0.70-1. Above high [facility] - [Mass/volume] in mg/dL 30 normal Good Serum or Plasma [facility] Glomerular >60 [facility] - filtration Good rate/1.73 sq M [facility] predicted among Hospital blacks [Volume Rate/Area] in Serum or Plasma by Creatinine-based formula (MDRD) Glomerular 56 >60 Below low normal [facility] - filtration ml/min/ Good rate/1.73 sq M 1.73m2 [facility] predicted among Hospital non-blacks [Volume Rate/Area] in Serum or Plasma by Creatinine-based formula (MDRD) Calcium 8.4 8.5-10. Below low normal [facility] - [Mass/volume] in mg/dL 1 Good Serum or Plasma [facility] Bilirubin.total 0.4 0.2-1.0 [facility] - [Mass/volume] in mg/dL Good Serum or Plasma [facility] Alanine 26 U/L 13-61 [facility] - aminotransferase Good [Enzymatic [facility] activity/volume] in Hospital Serum or Plasma Aspartate 54 U/L 15-37 Above high [facility] - aminotransferase normal Good [Enzymatic [facility] activity/volume] in Hospital Serum or Plasma by With P-5'-P Alkaline 121 U/L 45-117 Above high [facility] - phosphatase normal Good [Enzymatic [facility] activity/volume] in Hospital Serum or Plasma Protein 7.2 6.4-8.2 [facility] - [Mass/volume] in g/dL Good Serum or Plasma [facility] Albumin 2.3 3.5-4.7 Below low normal [facility] - [Mass/volume] in g/dL Good Serum or Plasma by [facility] ([facility]) dye binding method Globulin 4.9 1.7-4.7 Above high [facility] - [Mass/volume] in g/dL normal Good Serum by [facility] Albumin/Globulin 0.5 0.7-2.8 Below low normal [facility] - [Mass Ratio] in Good Serum or Plasma [facility] ID Date Data Source [id number] 03/17/2020 07:45:56 PM EDT [facility] Bedside and Verbal shift change report ashley blanco to Bella Johansen RN (oncoming nurse)by Mirtha Balderas RN (offgoing re se). Report included the following information SBAR, Kardex, EDSummary, OR Summary, Procedure Summary, Intake/Output, MAR, Accordion, RecentResults, Med Rec S tatus, Cardiac Rhythm NSR and Alarm Parameters . 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 plan1. We will follow. Name Value Range Interpretation Code Description Data [facility](s) Supporting Document(s ) ID Date Data Source [id number] 03/17/2020 03:39:55 PM EDT [facility] JAYDON Pearson [id number]: JAYDONROSELIA CARLYLEMRN: [id number]: [id number]#: [id number] DATE: 03/13/2020 OPERATIVE REPORTPROCEDURE DATE: 03/16/2020SURGEON: Vickie Carreon MDASSISTANT: None.PREOPERATIVE DIAGNOSIS: Urethral false passage.POSTOPERATIVE DAWN GNOSIS: Urethral false passage.PROCEDURES PERFORMED:1. Cystoscopy with dilation o f urethral stricture.2. Placement of Highland-tip Kelly.3. Cystogram.IMPLANTS : None.ANESTHESIA: General.ESTIMATED BLOOD LOSS: Minimal.SPECIMENS REMOVED: Urine culture.INDICATIONS: The patient is a 75-year-old gentleman [facility] Kelly [facility]. He had been transferred in several days ago [facility] with a Kelly catheter in place. This was removed earlier today a ndattempts nursing staff to place a catheter were unsuccessful. I had seen him earlierinthe day up on the floor and attempts to replace the Kelly catheter, includingbedside cystoscopy were unsuccessful due to false passage. I had spoken with the earlier in the evening and explained to her my plan. Phone consent wasobtain ed.OPERATIVE FINDINGS: In the operating room with better optics, I could find thefals epassage anteriorly. A guidewire was threaded and its location in the bladder wasconfirmed by fluoroscopy as well as the use of contrast. Using the 6-12 andthen 61-27-Risczt [place], the tight area was dilated. We exchanged for a SuperStiff wireand then passed a 16-Citizen Of [place] Highland-tip Kelly into the bladder.A urine culture w as sent.A cystogram was done to confirm proper placement of the catheter.OPERATI VE PROCEDURE: The patient was brought to the operating room urgently. Hewas placed s upine on the table. Anesthesia was administered and he was placedin the low lithotomy position and prepped and draped for cystoscopy. A timeoutwas called. H e had already been on antibiotics but we gave him an extra gram ofceftriaxone. Timeou t was called.The 19 Citizen Of [place] cystoscope was passed under direct vision. With the pr jamie opticsover a flexible scopes I could identify the small [place] false passa geanteriorly. I threaded a guidewire through this and under fluoroscopic controlcould see that it coiled in the bladder. An open-ended catheter was then passedover this. Urine was obtained and a small amount of contrast was administeredto confirm t hat the wire was in the bladder. Next the 6-12 Citizen Of The [place] Nottinghamfollowed by the 12 -18 Citizen Of [place] Caden was passed after we had exchanged for aSuper Stiff wire. Follow ing this is able to pass a 16 Citizen [place] tipcatheter over the wire into the [facility]. This was confirmed by return of urinebut also fluoroscopy.The bladder was filled with contrast through the Kelly catheter and both AP andright and left oblique views were taken as well as a drainage film to confirmproper catheter location. The bl adder was moderately trabeculated. The Foleycath was connected to gravity drain age.The patient was then taken back to the ICU in stable condition.I was present fo r the entire procedure. VICKIE Jernigan ANDREW, MDDD: 03/16/2020 2 1:50:22/CD /[id number] #: [id number] / [id number] Name Value Range Interpretation Code Description Data Annabelle rce(s) Supporting Document(s ) ID Date Data Source [id number] 03/17/2020 03:25:42 PM EDT [facility] Progress NotePatient: Carlyle Pate Sex: male DOA: 03/13/2020Date of : 1945 Age: 75 y.o. LOS: LOS: 4 daysSubjective:On trach collar this AM, very anxious, kelly replaced in OR by urology.Hypertensive today.Femoral line removed.Objective:Visit VitalsBP (!) 220/100 (BP 1 Location: Left leg, BP Patient Pos ition: At rest)Pulse 97Temp 98.3 F (36.8 C)Resp (!) 31Ht 5' 7" (1.702 m)Wt 88 kg (194 lb 1.6 oz)SpO2 97%BMI 30.40 kg/m Physical Exam:Physical ExamConstitutiona l: Appearance: He is ill-appearing.HENT: Head: Normocephalic and atraumatic.Eyes: Extraocular Movements: Extraocular movements intact.Neck: Musculoskeletal : Neck supple.Cardiovascular: Rate and Rhythm: Normal rate and regular rhythm.P ulmonary: Effort: Pulmonary effort is normal. Breath sounds: Normal breath s ounds.Abdominal: General: Abdomen is flat. Palpations: Abdomen is soft.Skin: Gen eral: Skin is warm.Neurological: General: No focal deficit present.+ PEG and trach RUE tenders and edematousIntake and Output:Current Shift: 03/17 701 - 03/01 1900In: -Out: 300 [Urine:300]Last three shifts: 03/15 1901 - 03/17 0700In: 3417 [I.V.:2367]Out: 1300 [Urine:1300]Lab/Data Reviewed:BMP:Lab ResultsComponent Value Date/Time NA 145 03/17/2020 03:46 AM K 3.0 (L) 03/17/2020 03:46 AM CL 117 (H) 03/17 03:46 AM CO2 18 (L) 03/17/2020 03:46 AM AGAP 13 03/17/2020 03:46 AM GLU 98 03/17 03:46 AM BUN 53 (H) 03/17/2020 03:46 AM CREA 1.45 (H) 03/17/2020 03:46 AM GFRAA >60 03/17/2020 03:46 AM GFRNA 50 (L) 03/17/2020 03:46 AMCMP:Lab ResultsCompon ent Value Date/Time NA 145 03/17/2020 03:46 AM K 3.0 (L) 03/17/2020 03:46 AM CL 117 (H) 03/17/2020 03:46 AM CO2 18 (L) 03/17/2020 03:46 AM AGAP 13 03/17/2020 03:46 AM GLU 98 03/17/2020 03:46 AM BUN 53 (H) 03/17/2020 03:46 AM CREA 1.45 (H) 03/17/2020 03:46 AM GFRAA >60 03/17/2020 03:46 AM GFRNA 50 (L) 03/17/2020 03:46 AM CA 8.3 (L) 0 03:46 AM ALB 2.0 (L) 03/17/2020 03:46 AM TP 6.5 03/17/2020 03:46 AM GLOB 4.5 020 03:46 AM AGRAT 0.4 (L) 03/17/2020 03:46 AM SGOT 76 (H) 03/17/2020 03:46 AM ALT 2 6 03/17/2020 03:46 AMCBC:Lab ResultsComponent Value Date/Time WBC 35.4 (HH) 03/17/2020 03:46 AM HGB 9.2 (L) 03/17/2020 03:46 AM HCT 29.8 (L) 03/17/2020 03:46 AM PLT 105 (L) 03/17/2020 03:46 AMAll Cardiac Markers in the last 24 hours: No results found for: CPK, CK, CKMMB,CKMB, RCK3, CKMBT, CKNDX, CKND1, GENO, TROPT, TROIQ, HARDEEP, TROPT, T NIPOC, BNP,BNPPRecent Glucose Results:Lab ResultsComponent Value Date/Time GLU 98 03/17/2020 03:46 AMABG: No results found for: PH, PHI, PCO2, PCO2I, PO2, PO2I, HCO3, H CO3I, FIO2,EWP7GBQUAX: No results found for: APTT, PTP, INR, INREXT, INREXTLiver Pane l:Lab ResultsComponent Value Date/Time ALB 2.0 (L) 03/17/2020 03:46 AM TP 6.5 03/17 03:46 AM GLOB 4.5 03/17/2020 03:46 AM AGRAT 0.4 (L) 03/17/2020 03:46 AM SGOT 7 6 (H) 03/17/2020 03:46 AM ALT 26 03/17/2020 03:46 AM AP 113 03/17/2020 03:46 AMPancr eatic Markers: No results found for: AMYLPOCT, AML, LIPPOCT, LPSEMedications ReviewedCurrent Facility-Administered Medications: amLODIPine (NORVASC) tabl et 10 mg, 10 mg, Oral, DAILY, Pati Childs MD ALPRAZolam (XANAX) tablet 0.25 mg, 0.25 mg, Oral, QID PRN, Pati Childs MD LORazepam (ATIVAN) injection 1 mg, 1 mg, IntraVENous, ONCE, Pati Childs MD potassium chloride (KLOR-CON) packet for solution 40 mEq, 40 mEq, Oral, BID,Pati Childs MD, 40 mEq at 03/17/20 0837 cefT RIAXone (ROCEPHIN) 2 g in 0.9% sodium chloride (MBP/ADV) 50 mL MBP, 2 g,IntraV ENous, Q24H, Sandi Lares MD, Last Rate: 100 mL/hr at 03/16/20 1339, 2 gat 03/16/20 2 108 acetaminophen (TYLENOL) solution 650 mg, 650 mg, Per G Tube, Q4H PRN, Latricia Curiel MD, 650 mg at 03/16/20 0859 levothyroxine (SYNTHROID) tablet 200 mcg , 200 mcg, Per G Tube, ACB, Beto Flores MD, 200 mcg at 03/17/20 0547 sodium ch loride (NS) flush 5-10 mL, 5-10 mL, IntraVENous, PRN, Chiquita Velazquez MD onda nsetron (ZOFRAN) injection 4 mg, 4 mg, IntraVENous, Q6H PRN, Chiquita Velazquez MD enoxaparin (LOVENOX) injection 40 mg, 40 mg, SubCUTAneous, Q24H, Sd Gramajo MD, Stopped at 03/13/20 2100 pantoprazole (PROTONIX) 40 mg in 0.9% sodium chloride 10 mL injection, 40 mg,IntraVENous, DAILY, Sd Gramajo MD, 40 mg at 03/17/20 0 836Continued hospitalization is indicated due to sepsisAssessment/PlanActive Problems: Septic shock (HCC) (03/13/2020) 1)Septic shock due to Klebsiella bacteremia/UTI:O ff presserscont IV rocephin per C&SRepeat blood cx from yesterday (-)DC IVFPulm fo llowingDC Midodrine, DC SolucortefWBC improved todayUrine strep AG and legione lla (-)CT chest/abd/pelvis unrevealingR wrist Xray w/o acute OMReplace kelly by urolog yPICC when blood Cx (-)Recheck WBC in AM2)Acute respiratory failure:resolvedCo nt vent by trachSonyaulm managing ventCont nebs3)Metabolc encephalopathy:resolvedDu e to #1 and #24)Anxiety:Restarted on pre-hospitalization xanaxAtivan IV x 15) Hypokalemia:replacedFull codeDVT ppx: Lovenox Name Value Range Interpretation Code Description Data Annabelle rce(s) Supporting Document(s ) ID Date Data Source [id number] 03/17/2020 12:53:15 PM EDT [facility] ID Progress Note03/17/2020Subjective:Curr ently afebrile.No other changes.Objective:Vitals:Visit VitalsBP (!) 220/100 (BP 1 Location: Left leg, BP Patient Position: At rest)Pulse 97Temp 9 8.3 F (36.8 C)Resp (!) 31Ht 5' 7" (1.702 m)Wt 88 kg (194 lb 1.6 oz)SpO2 97%BMI 30 .40 kg/m Tmax: Temp (24hrs), Av F (36.7 C), Min:97.8 F (36.6 C), Max:98.3 F( 36.8 C)Exam:General: Awake on the ventilator.Eyes: Sclera anicteric.Mouth /Throat: Tracheal tube in place.Neck: Supple.Lungs: Clear to auscultation bi laterally.Cardiovascular: Regular rate and rhythm.Abdomen: Soft, non-tender, marvin l sounds normal, non-distended.Extremities: No cyanosis or edema.Labs:CBC:Recent Lab s 03/16/2018WBC 35.4* 40.5* 51.9*RBC 3.24* 3.17* 3.24*HG B 9.2* 9.3* 9.4*HCT 29.8* 29.4* 29.8*PLT 105* 130 137GRANS 91* 85* 86*LYMPH 1* 5* 2*EO S 0 0 0CMP:Recent Labs 03/16/2004GLU 98 154* 103 NA 145 141 140K 3.0* 3.2* 3.9CL 117* 112* 110*CO2 18* 19* 21BUN 53* 55* 46*CREA 1. 45* 1.62* 1.67*CA 8.3* 8.7 7.8*AGAP 13 13 14AP 113 112 76TP 6.5 7.3 6.2*ALB 2.0* 2 .2* 1.9*GLOB 4.5 5.1* 4.3AGRAT 0.4* 0.4* 0.5*Antibiotic Monitoring:Lab ResultsCom ponent Value Date/Time Vancomycin,trough 15.0 03/15/2020 09:55 AMUrinalysis:Lab Result sComponent Value Date/Time Color YELLOW 03/13/2020 10:50 AM Appearance CLOUDY (A ) 03/13/2020 10:50 AM Specific gravity 1.015 03/13/2020 10:50 AM pH (UA) 8.0 03/13/20 20 10:50 AM Protein Negative 03/13/2020 10:50 AM Glucose Negative 03/13/2020 10:50 AM Ketone Negative 03/13/2020 10:50 AM Bilirubin Negative 03/13/2020 10:50 AM Blood LARGE (A) 03/13/2020 10:50 AM Urobilinogen 0.2 03/13/2020 10:50 AM Nitrites Negative 10:50 AM Leukocyte Esterase TRACE (A) 03/13/2020 10:50 AM WBC 20-50 2019 10:50 AM RBC TOO NUMEROUS TO COUNT 03/13/2020 10:50 AM Epithelial cells 0-3 03/13/2020 10:50 AM Bacteria 4+ 03/13/2020 10:50 AM Crystals, urine NONE 03/13/2020 10:50 AMCultures:No results found for: SDESLab ResultsComponent Value Date/Time Culture result: NO GROWTH AFTER 13 HOURS 03/16/2020 06:34 PM Culture result: (A) 03/15/2020 11:45 AM KLEBSIELLA PNEUMONIAE : Refer to previous culture(s) for suscept ibilityresults Culture result: (A) 03/15/2020 11:40 AM KLEBSIELLA PNEUMONIAE : Refer to previous culture(s) for susceptibilityresultsRadiology:Ct Head W o ContResult Date: 03/13/2020CT HEAD WO CONT Clinical data: AMS Priors: None. Techniq ue: Multiple axialimages were obtained from the skullbase to the vertex without admi nistration ofintravenous contrast. Sagittal and coronal reconstruction was performed .Utilizing desk interviewer algorithm the examination was performed to optimizeima ging quality by utilizing the lowest possible radiation dose. Findings: Thereis no jean claude dence of intracranial hemorrhage, masses, acute cortical infarction, ormidline malaika ft. There are no extra-axial fluid collections. There is noevidenceof hydr ocephalus. There is periventricular low-attenuationparticularlywithin the le ft posterior frontoparietal lobe suggestive of smallvessel ischemic change probably chronic. There is an old right posteriorparietal encephalomalacia with small dystrophic calcification consistent with aremote infarction. Vascular calci fications noted. Sulcal prominencesuggestive of brain parenchyma l volume loss. The bony calvarium shows noevidence of fracture or destructive jesus ny process.IMPRESSION: Left periventricular hypoattenuation suggestive of small vess elischemic change probably chronic. 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 Frandy vidence of hemorrhage. Should clinical concern persists then considerfollow-up MRI.Xr Chest PortResult Date: 03/14/2020CHEST one view HISTORY: Followup lung patholog y. Comparison is made to03/13/2020. Accounting for differences in technique ( ) there h as been nosignificant change of a lower lobe atelectasis. However there appears to be anincrease of an infiltrate in the right midlung or lower lung field. No otherint erval change is noted.IMPRESSION: Increase of right midlung or lower lung field field infiltrate.Xr Chest PortResult Date: 03/13/2020XR CHEST PORTABLE-SINGLE VIEW P RIOR: None HISTORY: Limited to that provided bythe emergency department at the time o f this examination; BIBA from [facility] for resfailure Pt has trach collar and vente d FINDINGS: Mild increased interstitialmarkings are identified bila terally consistent with infiltrates. There is mildhaziness of the costophrenic angle o n the left suggesting a small effusion. Noright effusion is present. A tracheost marina is present and in goodposition-unchanged. The cardiac silhouette is at the upper l imits of normal tomildly enlarged. There is a significant dorsal scoliotic curvature o f thethoracic spine.IMPRESSION: 1. Mild increased interstitial margins bilateral ly consistent withinfiltrates. 2. Small left effusion. 3. Upper limits of normal to m ild cardiacenlargement.Duplex Upper Ext Venous RightResult Date: 03/13/2020DUPLEX UPPER EXT VENOUS RIGHT Clinical indication: evaluate of RUE DVT . Edema.Priors: None . FINDINGS: The right subclavian vein up to the brachial vein iscompressible and maegan ws normal phasic flow without an intraluminal thrombus. Inaddition, the right commercial internship al jugular vein, cephalic vein and the basilic veinis also patent.IMPRESSION: N o evidence of deep vein thrombosis within the right upperextremity venous circulation . PS Electronically Signed: Juan Acevedo MD03/13/2020 5:10 PMLine/Insert Date: Peripheral IV:Assessment:1. 75 year old male with gram negative (Klebsiella) sepsis, probably secondaryto urinary tract infection.2. Respiratory failure.3. H/O Aphasia, CAD, Cancer of head and neck.Plan:1. Now on IV Ceftriaxone, based on cs findi ngs.2. Off of IV Zosyn.3. Off of IV Vancomycin and Tobramycin.4. Repeat anot her set of blood cs sent on 03/16, prelim negative.5. CT scan of the chest/abd/pel vis reviewed.6. Monitor labs. WBC now improving.Sandi Lares MD Name Value Range Interpretation Code Description Data Annabelle rce(s) Supporting Document(s ) ID Date Data Source [id number] 03/17/2020 11:42:11 AM EDT [facility] Follow-up Progress Note Name: Carlyle Pate : 1945 [facility] TALDate: 03/17/2020IMPRESSION:Patient Active Problem ListDiagnosis Code Septic shock (HCC) A41.9, R65.21 atrial fibrillation distant head neck cancer treated with ra diation with subglottic stenosis [facility] aphasia complicated by respiratory failure requiring tracheostomy and PEG. Status post admission to [facility] on 01/31-> 03/12 --> [facility] --> [facility] 03/13secondary to lethargy, respiratory d istress, fever Hypotension-COVID (-) 5/13PLAN:Cultures at [facility] showing GNR 4/4 bottles; Klebsiella sepsis, Clinicallyimproving, but significant loretta kocytosis - repeat Blood cx- 03/15/2020- KLEBSIELLAPNEUMONIAE- On CeftriaxoneImpr oving WBC but still above 35K-CT of the head with old right parietal infarct and left subacuteperiventricular infarct-off pressors. Wean hydrocortisone 50 mg q12h -RUE edema asymmetric. Dopplers negative-Afib rate controlled. Patient on DVT treatmen t dosage of lovenox prior totransfer, will continueOn TC and sat 97%- PRN CPAP/PS. -DVT and SUP prophy-Updated [phone] Further recommendations w ill be based on the patient's response to recommendedtreatment and results of the investigation ordered.Subjective/Interval History:Pt on TC 50% FiO2. Trying to mo uth words. Anxious but no distress. Spoke withnurse at bedside- ? Paranoia.ROS:Rev iew of systems not obtained due to patient factors.Objective:Vital Signs:Visit Keely lsBP 188/84 (BP 1 Location: Left arm, BP Patient Position: At rest)Pulse (!) 113T emp 98.3 F (36.8 C)Resp 28Ht 5' 7" (1.702 m)Wt 88 kg (194 lb 1.6 oz)SpO2 95%BMI 30 .40 kg/m O2 Device: 02 face tentTemp (24hrs), Av F (36.7 C), Min:97.8 F (36.6 C), Max:98.3 F (36.8 C)Intake/Output:Last shift: No intake/output data record ed.Last 3 shifts: 03/15 190 - 03/17 0700In: 3417 [I.V.:2367]Out: 1300 [Urine:1300]In take/Output Summary (Last 24 hours) at 03/17/2020 0831Last data filed at 03/17/20 20 0603Gross per 24 hourIntake 2287 mlOutput 800 mlNet 1487 mlPhysical Exam:General: Alert, Awake, NAD, cooperative, on TCHead: Normocephalic, without obvious abnormali ty, atraumatic.Lung: Adequate air entry bilateral equal, no rales, occ rhonchi, no wheezing.Heart: Regular rate & rhythm. S1 S2 present, no murmur, no gallop, no click,no rubAbdomen: Soft, NT, ND, +BS, no masses, no organomegalyExtremities: No pedal edema, no cyanosis, no clubbingPulses: 2+ and symmetric in DPNeurologic: Awake in NAD on TCCurrent Facility-Administered MedicationsMedication Dose Route Frequen cy hydrocortisone Sod Succ (PF) (SOLU-CORTEF) injection 25 mg 25 mg Int [id number] potassium chloride (KLOR-CON) packet for solution 40 mEq 40 mEq Oral BID cefTRIAXone (ROCEPHIN) 2 g in 0.9% sodium chloride (MBP/ADV) 50 mL MBP 2 g IntraVENous Q24H acetaminophen (TYLENOL) solution 650 mg 650 mg Per G Tube Q4H P RN midodrine (PROAMATINE) tablet 10 mg 10 mg Oral TID WITH MEALS levothyroxine (S YNTHROID) tablet 200 mcg 200 mcg Per G Tube ACB 0.9% sodium chloride infusion 50 m L/hr IntraVENous CONTINUOUS sodium chloride (NS) flush 5-10 mL 5-10 mL IntraVENous PRN ondansetron (ZOFRAN) injection 4 mg 4 mg IntraVENous Q6H PRN enoxaparin (LOVE NOX) injection 40 mg 40 mg SubCUTAneous Q24H pantoprazole (PROTONIX) 40 mg in 0.9% s odium chloride 10 mL injection 40 mgIntraVENous DAILYDATA:Recent Results ( from the past 24 hour(s))CBC WITH MANUAL DIFF Collection Time: 03/16/20 6:24 PMResult Value Ref Range WBC 40.5 (HH) 4.8 - 10.6 K/uL RBC 3.17 (L) 4.70 - 6.00 M/uL HGB 9 .3 (L) 14.0 - 18.0 g/dL HCT 29.4 (L) 42.0 - 52.0 % MCV 92.7 81.0 - 94.0 FL MCH 29.3 27.0 - 35.0 PG MCHC 31.6 30.7 - 37.3 g/dL RDW 18.2 (H) 11.5 - 14.0 % PLATELET 130 130 - 400 K/uL MPV 13.2 (H) 9.2 - 11.8 FL NRBC 0.0 0 PER 100 WBC ABSOLUTE NRBC 0.00 0.0 - 0.01 K/uL NEUTROPHILS 85 (H) 48.0 - 72.0 % BAND NEUTROPHILS 8 (H) 0 % LYMPHOCYTES 5 (L) 18.0 - 40.0 % MONOCYTES 2 2.0 - 12.0 % EOSINOPHILS 0 0.0 - 7.0 % BASOPHILS 0 0. 0 - 3.0 % METAMYELOCYTES 0 0 % MYELOCYTES 0 0 % PROMYELOCYTES 0 0 % BLASTS 0 0 % OTHER CELL 0 IMMATURE GRANULOCYTES 0 % ABS. NEUTROPHILS 37.7 (H) 2.3 - 7.6 K/UL ABS. LYMPHOCYTES 2.0 0.9 - 4.2 K/UL ABS. MONOCYTES 0.8 0.1 - 1.7 K/UL ABS. EOSINO PHILS 0.0 0.0 - 1.0 K/UL ABS. BASOPHILS 0.0 K/UL ABS. IMM. GRANS. 0.0 K/UL RBC COMME NTS 2+ANISOCYTOSIS RBC COMMENTS 1+HYPOCHROMIA RBC COMMENTS OCCASIONALPOLYCHROMASIA RBC COMMENTS OCCASIONALSCHISTOCYTES WBC COMMENTS OCCASIONAL PLATELET ESTIMATE ADEQUATE DF MANUALCULTURE, BLOOD Collection Time: 03/16/20 6:34 PMResult Value Ref Range Special Requests: NO SPECIAL REQUESTS Culture result: NO GROWTH AFTER 13 HOURSMETABOLI C PANEL, COMPREHENSIVE Collection Time: 03/17/20 3:46 AMResult Value Ref Range Sodium 145 136 - 145 mmol/L Potassium 3.0 (L) 3.5 - 5.1 mmol/L Chloride 117 (H) 98 - 1 07 mmol/L CO2 18 (L) 21 - 32 mmol/L Anion gap 13 10 - 20 mmol/L Glucose 98 74 - 106 mg /dL BUN 53 (H) 7 - 18 mg/dL Creatinine 1.45 (H) 0.70 - 1.30 mg/dL GFR est AA >60 >60 ml/min/1.73m2 GFR est non-AA 50 (L) >60 ml/min/1.73m2 Calcium 8.3 (L) 8.5 - 10.1 mg/dL Bilirubin, total 0.4 0.2 - 1.0 mg/dL ALT (SGPT) 26 13 - 61 U/L AST (SGOT) 76 (H) 15 - 37 U/L Alk. phosphatase 113 45 - 117 U/L Protein, total 6.5 6.4 - 8.2 g/dL Al bumin 2.0 (L) 3.5 - 4.7 g/dL Globulin 4.5 1.7 - 4.7 g/dL A-G Ratio 0.4 (L) 0.7 - 2.8CB C WITH MANUAL DIFF Collection Time: 03/17/20 3:46 AMResult Value Ref Range WBC 35.4 ( HH) 4.8 - 10.6 K/uL RBC 3.24 (L) 4.70 - 6.00 M/uL HGB 9.2 (L) 14.0 - 18.0 g/dL HCT 29 .8 (L) 42.0 - 52.0 % MCV 92.0 81.0 - 94.0 FL MCH 28.4 27.0 - 35.0 PG MCHC 30.9 30.7 - 37.3 g/dL RDW 18.2 (H) 11.5 - 14.0 % PLATELET 105 (L) 130 - 400 K/uL MPV 13.3 (H) 9.2 - 11.8 FL NRBC 0.0 0 PER 100 WBC ABSOLUTE NRBC 0.00 0.0 - 0.01 K/uL NEUTR OPHILS 91 (H) 48.0 - 72.0 % BAND NEUTROPHILS 6 (H) 0 % LYMPHOCYTES 1 (L) 18.0 - 40.0 % MONOCYTES 2 2.0 - 12.0 % EOSINOPHILS 0 0.0 - 7.0 % BASOPHILS 0 0.0 - 3.0 % METAMYEL OCYTES 0 0 % MYELOCYTES 0 0 % PROMYELOCYTES 0 0 % BLASTS 0 0 % OTHER CELL 0 IMMATURE G RANULOCYTES 0 % ABS. NEUTROPHILS 34.3 (H) 2.3 - 7.6 K/UL ABS. LYMPHOCYTES 0.4 (L) 0.9 - 4.2 K/UL ABS. MONOCYTES 0.7 0.1 - 1.7 K/UL ABS. EOSINOPHILS 0.0 0.0 - 1.0 K/UL ABS. BASOPHILS 0.0 K/UL ABS. IMM. GRANS. 0.0 K/UL RBC COMMENTS 2+ANISOCYTOSIS RBC COMMENTS SLIGHTHYPOCHROMIA RBC COMMENTS OCCASIONALPOLYCHROMASIA RBC COMMENTS SLI GHTTARGET CELLS WBC COMMENTS SLIGHT PLATELET ESTIMATE ADEQUATE DF MANUALImaging:[x]I have personally reviewed the patient's radiographs[x]Radiographs reviewedCT amari st/abd/pel 03/16/2020 reviewed:Small to moderate bilateral pleural effusions wit h adjacent atelectasis.Superimposed infiltrates are difficult to exclude. Th ere is pelvic free fluid. There are gallstones. There is diverticulosis with out evidence acute diverticulitis. There is a 2.2 cm hypodensity in the midportion of the right kidney not fullyevaluated on this noncontrast examXR wrist 03/16/2020Degene rative changes. No radiographic evidence of osteomyelitisElectronically signed by:Bibi Delvalle MD03/17/2020 Name Value Range Interpretation Code Description Data Annabelle rce(s) Supporting Document(s ) ID Date Data Source [id number] 03/17/2020 11:19:31 AM EDT [facility] Patient agitated, restless. Trying to t alk. BP elevated. Hospitalist called,Dr Childs. Hydralazine ordered. To re start Norvasc. Name Value Range Interpretation Code Description Data [facility] rce(s) Supporting Document(s ) ID Date Data Source [id number] 03/17/2020 07:19:06 AM EDT [facility] Bedside and Verbal shift change report g sonjaen to Mirtha Balderas RN(oncoming nurse) by DEEPTI MUNGUIA RN (offgoing nurs e). Report included thefollowing information SBAR, Kardex, OR Summary, Procedure Summ tg,Intake/Output, MAR, Recent Results and Cardiac Rhythm sinus rhythm/A fib. Name Value Range Interpretation Code Description Data [facility] rce(s) Supporting Document(s ) ID Date Data Source [id number] 03/17/2020 07:04:44 AM EDT [facility] Pt back to 468 from OR post cyctoscopy p t awake alert connected back to monitorvitals stable, coucil kelly #[address] sl[address]th hematuria pt afebrile Name Value Range Interpretation Code Description Data Annabelle rce(s) Supporting Document(s ) ID Date Data Source [id number] 03/17/2020 08:25:12 AM EDT [facility] Name Value Range Interpretation Description Data Sup porting Code Source(s) Document(s ) Leukocytes 35.4 4.8-10.6 Above upper panic [facility] - [facility] [#/volume] in K/uL limits [facility] by [facility] Automated count CALLED TO AND READ BACK BYADDIE BNAKS S [id number] MEGAN ISAAC Erythrocytes [#/volume] 3.24 M/uL 4.70-6.00 Below low normal [facility] - Good in Blood by Automated [facility] count Hemoglobin 9.2 g/dL 14.0-18.0 Below low normal [facility] - Good [Mass/volume] in Blood [facility] Hematocrit [Volume 29.8 % 42.0-52.0 Below low normal [facility] - Good Fraction] of Blood by [facility] Automated count Erythrocyte mean 92.0 FL 81.0-94.0 [facility] - Good corpuscular volume [facility] ospital [Entitic volume] by Automated count Erythrocyte mean 28.4 PG 27.0-35.0 [facility] - Good corpuscular hemoglobin [facility] [Entitic mass] by Automated count Erythrocyte mean 30.9 g/dL 30.7-37.3 [facility] - Good corpuscular hemoglobin [facility] concentration [Mass/volume] by Automated count Erythrocyte 18.2 % 11.5-14.0 Above high [facility] - Good distribution width [facility] ospital [Ratio] by Automated count Platelets [#/volume] in 105 K/uL 130-400 Below low normal [facility] - Good Blood by Automated [facility] ospital count Platelet mean volume 13.3 FL 9.2-11.8 Above high [facility] - Good [Entitic volume] in normal [facility] Blood by Automated count Nucleated 0.0 PER 100 0 [facility] - Good erythrocytes/100 WBC [facility] pital leukocytes [Ratio] in Blood Nucleated erythrocytes 0.00 K/uL 0.0-0.01 [facility] - Good [#/volume] in Blood [facility] Segmented 91 % 48.0-72.0 Above high [facility] - Good neutrophils/100 normal [facility] ital leukocytes in Blood Band form 6 % 0 Above high [facility] - Good neutrophils/100 normal [facility] ital leukocytes in Blood by Manual count Lymphocytes/100 1 % 18.0-40.0 Below low normal [facility] - Good leukocytes in Blood [facility] Monocytes/100 2 % 2.0-12.0 [facility] - Good leukocytes in Blood [facility] Eosinophils/100 0 % 0.0-7.0 [facility] - Good leukocytes in Blood [facility] Basophils/100 0 % 0.0-3.0 [facility] - Good leukocytes in Blood [facility] Metamyelocytes/100 0 % 0 [facility] - Goo d leukocytes in Blood by [facility] Manual count Myelocytes/100 0 % 0 [facility] - Good leukocytes in Blood by [facility] Manual count Promyelocytes/100 0 % 0 [facility] - Good leukocytes in Blood by [facility] Manual count Blasts/100 leukocytes 0 % 0 [facility] - Good in Blood by Manual [facility] ospital count Other cells/100 0 [facility] - Good leukocytes in Blood by [facility] Manual count Immature 0 % [facility] - Good granulocytes/100 [facility] pital leukocytes in Blood by Automated count Segmented neutrophils 34.3 K/UL 2.3-7.6 Above high [facility] - Good [#/volume] in Blood normal [facility] Lymphocytes [#/volume] 0.4 K/UL 0.9-4.2 Below low normal [facility] - Good in Blood [facility] Monocytes [#/volume] in 0.7 K/UL 0.1-1.7 [facility] - Good [facility] Eosinophils [#/volume] 0.0 K/UL 0.0-1.0 [facility] - Good in Blood [facility] Basophils [#/volume] in 0.0 K/UL [facility] - Good [facility] Immature granulocytes 0.0 K/UL [facility] - Good [#/volume] in Blood by [facility] Automated count 2+ANISOCYTOSISSLIGHTHYPOCHROMIAOCCASIONA LPOLYCHROMASIASLIGHTTARGET CELLS Leukocyte morphology finding [Identifier] [facility] in Blood DOHLE BODIES Platelet adequacy [Presence] in Blood by [facility] - [facility] Hospital Light microscopy Differential cell count method - Blood [facility] ID Date Data Source [id number] 03/17/2020 05:48:39 AM EDT [facility] Name Value Range Interpretation Description Data Sup porting Code Source(s) Document(s ) Sodium 145 136-145 [facility] - [Moles/volume] in mmol/L [facility] Serum or [facility] Potassium 3.0 3.5-5.1 Below low normal [facility] - [Moles/volume] in mmol/L [facility] or [facility] Chloride 117 98-107 Above high [facility] - [Moles/volume] in mmol/L normal [facility] Serum or [facility] Carbon dioxide, 18 21-32 Below low normal [facility] - total mmol/L Good [Moles/volume] in [facility] Serum or Plasma Hospital Anion gap in Serum 13 10-20 [facility] - or Plasma mmol/L [facility] Glucose 98 74-106 [facility] - [Mass/volume] in mg/dL [facility] or [facility] Urea nitrogen 53 7-18 Above high [facility] - [Mass/volume] in mg/dL normal [facility] Serum or [facility] Creatinine 1.45 0.70-1. Above high [facility] - [Mass/volume] in mg/dL 30 normal [facility] or [facility] Glomerular >60 [facility] - filtration Good rate/1.73 sq M [facility] predicted among Hospital blacks [Volume Rate/Area] in Serum or Plasma by Creatinine-based formula (MDRD) Glomerular 50 >60 Below low normal [facility] - filtration ml/min/ Good rate/1.73 sq M 1.73m2 [facility] predicted among Hospital non-blacks [Volume Rate/Area] in Serum or Plasma by Creatinine-based formula (MDRD) Calcium 8.3 8.5-10. Below low normal [facility] - [Mass/volume] in mg/dL 1 [facility] or [facility] Bilirubin.total 0.4 0.2-1.0 [facility] - [Mass/volume] in mg/dL [facility] Serum or [facility] Alanine 26 U/L 13-61 [facility] - aminotransferase Good [Enzymatic [facility] activity/volume] in Hospital Serum or Plasma Aspartate 76 U/L 15-37 Above high [facility] - aminotransferase normal Good [Enzymatic [facility] activity/volume] in Hospital Serum or Plasma by With P-5'-P Alkaline 113 U/L 45-117 [facility] - phosphatase Good [Enzymatic [facility] activity/volume] in Hospital Serum or Plasma Protein 6.5 6.4-8.2 [facility] - [Mass/volume] in g/dL Good Serum or Plasma [facility] Albumin 2.0 3.5-4.7 Below low normal [facility] - [Mass/volume] in g/dL Good Serum or Plasma by [employer] Bromocresol [facility] ([facility]) dye binding method Globulin 4.5 1.7-4.7 [facility] - [Mass/volume] in g/dL Good Serum by [facility] Albumin/Globulin 0.4 0.7-2.8 Below low normal [facility] - [Mass Ratio] in Good Serum or Plasma [facility] ID Date Data Source [id number] 03/16/2020 09:46:34 PM EDT [facility] - [facility] Brief Postoperative NotePatient: Carlyle PateDate of : 1945MRN: [id number] of Procedure: 03/16/2020Pre-O p Diagnosis: FALSE URETHRAL PASSAGEPost-Op Diagnosis: SameProcedure(s):1. Cystoscop y Dilation Urethral Stricture2. Placement [place] Kelly (16Fr)3. CystogramSurgeon( s):Vickie Carreon MDSurgical Automotive Painter Helper: NoneAnesthesia: GeneralEstima roby Blood Loss (mL): MinimalComplications: NoneSpecimens:ID Type Source Tests Colle cted by Time DestinationA : URINE CULTURE Urine Bladder CULTURE, URINE Eusebia Carreon MD03/16/2020 9:30 PM MicrobiologyImplants: NoneDrains:PEG/Gas trostomy Tube (Active)Site Assessment Clean, dry, & intact 03/15/2020 8:00 PMDressing Status Clean, dry, & intact 03/15/2020 8:00 PMG Port Status Infusing 03/15/2020 8:00 PMAction Taken Feed set changed 03/15/2020 9:00 PMDrainage Description Amador 0 9:00 PMGastric Residual (mL) 5 ml 03/15/2020 9:00 PMTube Feeding/Formula O ptions Osmolite 1.5 03/15/2020 9:00 PMTube Feeding/Verify Rate (mL/hr) 0 03/16/2020 3:00 PMWater Flush Volume (mL) 10 mL 03/15/2020 8:00 PMIntake (ml) 60 ml 03/16 3:00 PMMedication Volume 100 ml 03/15/2020 9:00 PMFindings: DictatedElec tronically Signed by Vickie Carreon MD on 03/16/2020 at 9:44 PM Name Value Range Interpretation Code Description Data Annabelle rce(s) Supporting Document(s ) ID Date Data Source [id number] 03/16/2020 09:39:27 PM EDT [facility] XR WRIST RT AP/LATINDICATION.: . Swelli ng and pain on the wrist, with sepsis..TECHNIQUE.: 3 views of the right wrist were acquired.COMPARISON.: No prior studies are available for comparison.FIN DINGS.: Advanced, multifocal degenerative changes are noted including at theradioc arpal, triscaphe, thumb carpal metacarpal and thumb metacarpal phalangealjoints. There is deformity and sclerosis of the scaphoid which may bedegenerative. There is no ev idence of acute fracture..: Degenerative changes as described above. No radiograp hic evidenceof osteomyelitis; however, if there is clinical concern, further evalu ation withMRI would be warranted.PS Electronically Signed: Maria M Castro MD 03/16/2020 9:39 PM Signing date/time: 03/16/2020 9:39 PMSigned by: RISA CASTRO Name Value Range Interpretation Code Description Data Annabelle rce(s) Supporting Document(s ) ID Date Data Source [id number] 03/19/2020 10:33:19 AM EDT [facility] Name Value Range Interpretation Description Data Sup porting Code Source(s) Document(s ) Service comment [facility] Bacteria [facility] identified in [facility] specimen by Culture ID Date Data Source [id number] 03/16/2020 07:35:22 PM EDT [facility] Bedside and Verbal shift change report ashley blanco to Deepti Munguia (oncoming nurse) All KIDD RN (offgoing nurse). Report included the following informationSBAR, Kardex, Intake/Output, MAR and Recent Results. Name Value Range Interpretation Code Description Data Annabelle rce(s) Supporting Document(s ) ID Date Data Source [id number] 03/16/2020 07:28:55 PM EDT [facility] Consult NoteSubjective:Carlyle Pate is a 75 y.o. male being evaluated for Kelly insertion.Earlier today his existing Fol ey catheter was removed and the nursing staff wasunable to reinsert it. Urology was c onsulted.He has a complicated medical and urologic history. Most recently he hads uffered a left basal ganglia hemorrhage applicator by respiratory failure. Hewa s treated at [facility]. Tracheostomy was placed on January 16 emerita s subsequently been transferred to various rehab hospitals most recently [facility] . He was admitted on March 13 to [facility] with a fever of104.7 degrees hypotension and unresponsive. He has since responded to medicaltherapy and no w is alert and coherent.I obtained his urologic history from his . He had a history of prostatecancer treated with radiation therapy 15 years ago. This wa s complicated by marita recent radiation cystitis with gross hematuria requiring hyperbaric oxygenfor about 60 sessions.Patient Active Problem List Dawn gnosis Date Noted Septic shock (HCC) 03/13/2020Past Medical History:Diagnosis Date Anxiety Aphasia Atrial fibrillation (HCC) with ventricular tachycardia Bila teral carotid artery disease (HCC) CAD (coronary artery disease) Chronic cysti tis Dysphagia Head and neck cancer (HCC) Hemiparesis (HCC) right side HLD (hyper lipidemia) Hypertension Hypoxemia Infarction of left basal ganglia (HCC) i ntracranial hemorrhage Pneumonia Prostate cancer (HCC) Respiratory failure (HCC) S/P percutaneous endoscopic gastrostomy (PEG) tube placement (HCC) Thymus cance r (HCC) Thyroid cancer (HCC)Past Surgical History:Procedure Laterality Date HX OT HER SURGICAL thymus gland removed HX TRACHEOSTOMY IR INSERT GASTROSTOMY TUBE PERCPrior to Admission medicationsMedication Sig Start Date End Date Taking? Authoriz ing ProvideramLODIPine (NORVASC) 10 mg tablet 10 mg by Per G Tube route daily. Yes O ther,Phys, MDescitalopram oxalate (LEXAPRO) 10 mg tablet 10 mg by Per G Tube route d aily.Yes Other, Phys, MDfamotidine (PEPCID) 20 mg tablet 20 mg by Per G Tube route t wo (2) times a day.Yes Other, Phys, MDgabapentin (NEURONTIN) 100 mg capsule 100 mg by Per G Tube route three (3) timesdaily. Yes Other, Phys, MDlevothy roxine (SYNTHROID) 200 mcg tablet Take 200 mcg by mouth Daily (beforebreakfast). Yes Other, Phys, MDmelatonin 5 mg cap capsule Take 9 mg by mouth nightly. Yes Other, Phys, MDsennosides 17.2 mg tab 17.2 mg by PEG Tube route daily. Yes Other, Phys, MDlosartan (COZAAR) 100 mg tablet 150 mg by Per G Tube route daily. Yes Other,Phys , MDdoxazosin (CARDURA) 1 mg tablet 1 mg by Per G Tube route nightly. Yes Other,Ph ys, MDascorbic acid, vitamin C, (VITAMIN C) 500 mg tablet 500 mg by Per G Tube route daily. Yes Other, Phys, MDchlorhexidine (PERIDEX) 0.12 % solution 15 mL by Swish and Spit route daily.Yes Other, Phys, MDdocusate sodium (Colace) 100 mg capsul e 200 mg by Per G Tube route daily. YesOther, Phys, MDDOCUSATE SODIUM-BENZOC CANDY RE Insert 5 mL into rectum. Every 2 days Yes Other,Phys, MDmultivitamin (ONE A DAY) tablet 1 Tab by Per G Tube route daily. Yes Other,Phys, MDnystatin (MYCOSTATIN) topical cream Apply to affected area three (3) timesdaily. Yes Other, Phys, MDpol yethylene glycol (MIRALAX) 17 gram packet Take 17 g by mouth daily. YesOther, Ph ys, MDSENNA 528 mg by PEG Tube route. Yes Other, Phys, MDergocalciferol (Vitamin D 2) 1,250 mcg (50,000 unit) capsule Take 50,000 Units bymouth. Yes Other, Phys, MDALBUTEROL IN Take 2 Puffs by inhalation four (4) times daily. Yes Other, Phys, MDaspirin (ASPIRIN) 325 mg tablet 325 mg by PEG Tube route daily. Yes Other,Phys, MDatorvastatin (LIPITOR) 40 mg tablet 40 mg by Per G Tube route daily. YesOther, P hys, MDbisacodyL 5 mg tab Insert 10 mg into rectum nightly. Yes Other, PhysMDeno xaparin (Lovenox) 40 mg/0.4 mL 40 mg by SubCUTAneous route daily. YesOther, Ph ys, MDpotassium bicarb-citric acid (EFFER-K) 20 mEq tablet Take 20 mEq by mouth two(2 ) times a day. Yes Other, Phys, MDFLUTICASONE PROPIONATE IN 1 [place] by N marci route two (2) times a day. YesOther, Phys, MDALPRAZolam (XANAX) 0.25 mg table t 0.25 mg by Per G Tube route every eight (8)hours as needed for Anxiety. Yes Ot her, Phys, MDtraMADoL (ULTRAM) 50 mg tablet 50 mg by Per G Tube route every six (6) hours asneeded for Pain. Yes Other, Phys, MDacetaminophen (TYLENOL) 325 mg tablet 650 mg by Per G Tube route every four (4)hours as needed for Pain. Yes Other , Elena Jurado Known AllergiesSocial HistoryTobacco Use Smoking status: Form er Smoker Smokeless tobacco: Never UsedSubstance Use Topics Alcohol use: N ot CurrentlyHistory reviewed. No pertinent family history.Review of SystemsPertinen t items are noted in HPI.Physical Exam:Physical ExamPulmonary: Effort: P ulmonary effort is normal. Comments: The patient has a tracheostomy.Abdominal: General: Abdomen is flat. There is no distension. Palpations: Abdomen is sof t. Tenderness: There is no abdominal tenderness.Genitourinary: Penis: Corin l. Scrotum/Testes: Normal. Comments: When I arrived the Kelly catheter was in the urethra but did notappear to be in the bladder as it was nothing significant dr conn in the tube.When it was removed there was fresh bleeding from the urethra sugg estive ofeither false passage of the balloon being inflated in the urethra.Skin: Ge neral: Skin is warm and dry.Neurological: Mental Status: He is alert.Objective:Est imated body mass index is 29.87 kg/m as calculated from the following: Height a s of this encounter: 5' 7" (1.702 m). Weight as of this encounter: 190 lb 11.2 oz (86 .5 kg).Labs:Recent Labs 03/15/2003WBC 51.9* 39.8* 27.3*HGB 9.4* 8.5* 8.5*HCT 29.8* 27.0* 27.6*PLT 137 131 164Recent Labs 16619 03/15/200350 NA 141 140 140K 3.2* 3.9 3.9CL 112* 110* 109*CO2 19 * 21 22GLU 154* 103 89BUN 55* 46* 41*CREA 1.62* 1.67* 1.78*CA 8.7 7.8* 7.3*ALB 2.2 * 1.9* 2.1*SGOT 124* 143* 104*ALT 29 23 18Cultures:All Micro Results Procedure C omponent Value Units Date/Time CULTURE, BLOOD [[id number]] Collected: 03/16/20 183 Or jon Status: Completed Specimen: Blood Updated: 03/16/20 184 CULTURE, BLOOD [ [id number]] Collected: 03/16/20 1824 Order Status: Completed Specimen: Blood Upda roby: 03/16/20 184 C. DIFFICILE (DNA) [[id number]] Order Status: Sent Specimen : Stool CULTURE, BLOOD [[id number]] Collected: 03/15/20 1145 Order Status: Completed Specimen: Blood Updated: 03/16/20 1016 Special Requests: NO SPEC IAL REQUESTS GRAM STAIN GRAM NEGATIVE RODS AEROBIC BOTTLE CALLED TO AND READ BACK BY RISSA RAMOS RN 0414 03/16/20 TRICIA REID Culture result: IDENTIFICATIO N AND SUSCEPTIBILITY TO FOLLOW CULTURE, RESPIRATORY/SPUTUM/BRONCH W GRAM STAIN [ [id number]] (Abnormal)Collected: 03/14/20 2300 Order Status: Completed Specimen: Sputum,ET Suction Updated: 03/16/20 0757 Special Requests: NO SPECIAL REQUESTS G LOW STAIN 10-25 WBC/lpf <10 EPI/lpf MODERATE GRAM NEGATIVE RODS Culture res ult: LIGHT GROWTH GRAM NEGATIVE RODS IDENTIFICATION AND SUSCEPTIBILITY TO FOL LOW CULTURE, BLOOD [[id number]] Collected: 03/15/20 1140 Order Status: Completed S pecimen: Blood Updated: 03/16/204 Special Requests: NO SPECIAL REQUESTS G LOW STAIN GRAM NEGATIVE RODS AEROBIC AND ANAEROBIC BOTTLES CALLED TO AND READ BA CK BY CORNELIUS RAMOS RN 0414 03/16/20 TRICIA REID Culture result: IDEN TIFICATION AND SUSCEPTIBILITY TO FOLLOW STREP PNEUMO AG, URINE [[id number]] Collected: 03/15/20 0840 Order Status: Completed Specimen: Urine, random Updated: 03/15 1119 Strep pneumo Ag, urine Negative Comment:Presumptive negative suggests no current or recent pneumococcal infection.Infection due to S.pneumonia c annot beruled out since the antigen presentin the sample may be below the detectionlim it of the test. This test is notintended as a substitute for gram stainand bacterial c ulture Method IMMUNOCHROMATOGRAPHIC MEMBRANE ASSAY LEGIONELLA PNEUMOPHILA AG , URINE [[id number]] Collected: 03/14/20 0840 Order Status: Completed Specimen: Urin e Updated: 03/15/20 1117 Legionella Ag, urine Negative Comment:PRESUMPTIVE NEGA TIVE forL.pneumophila Serogroup 1Antigen in urine,suggestingno recent or current inf ection.Infection due to Legionellacannot be ruled out since otherserogroups and spec ies may causedisease,antigen may not bepresent in urine in earlyinfection, an d the level ofantigen present in the urinemay be below the detectionlimit of the test. Method IMMUNOCHROMATOGRAPHIC MEMBRANE ASSAY CULTURE, URINE [[id number]] (Abnor mal) (Susceptibility) Collected: 03/13/201050 Order Status: Completed Sp ecimen: Cath Urine Updated: 03/15/20 0745 Special Requests: NO SPECIAL REQUESTS C ulture result: >100,000 COLONIES/mL KLEBSIELLA PNEUMONIAE CULTURE, BLOOD [[id number]] (Abnormal) Collected: 03/13/20 2112 Order Status: Completed Specimen: Blood Updated: 03/15/20 06 Special Requests: NO SPECIAL REQUESTS GRAM STAI N ANAEROBIC BOTTLE GRAM NEGATIVE RODS CALLED TO AND READ BACK BY HOLLY FAM RN 1032 03/14/2020 Shira CASTANO Culture result: KLEBSIELLA PNEUMONIAE : Refer t o previous culture(s) for susceptibilityresults CULTURE, BLOOD [[id number]] (Abnormal) Collected: 03/13/202099 Order Status: Completed Specimen: Blood Updated: 03/15/20 06 Special Requests: NO SPECIAL REQUESTS GRAM STAI N AEROBIC BOTTLE GRAM NEGATIVE RODS CALLED TO AND READ BACK BY HOLLY Kay 1034 03/14/2020 Shira CASTANO Culture result: KLEBSIELLA PNEUMONIAE : Refer to previou s culture(s) for susceptibilityresults Blood Culture [[id number]] (Abnormal) Collecte d: 03/13/20 1040 Order Status: Completed Specimen: Blood Updated: 03/15/2014 Special Requests: NO SPECIAL REQUESTS GRAM STAIN GRAM NEGATIVE RODS ON ANAEROBIC B OTTLE CALLED TO AND READ BACK BY LIGIA BARRON RN,CCU,03/13/20 @ 2020 S PAULSO N AEROBIC BOTTLE GRAM NEGATIVE RODS Culture result: KLEBSIELLA PNEUMONIAE : Refer t o previous culture(s) for susceptibilityresults Blood Culture [[id number]] (Abnormal) (Susceptibility) Collected: Order Status: Completed Specimen: Blood Updated: 03/15/20 0612 Special Requests: NO SPECIAL REQUE STS GRAM STAIN GRAM NEGATIVE RODS on AEROBIC AND ANAEROBIC BOTTLES CALLED TO AND READ BACK BY LIGIA BARRON RN,CCU,03/13/20 @ 2020 S PAULSO N Culture result: KLEBSIELLA PNEUMONIAE PRE-SURGICAL COVID PCR [[id number]] Colle cted: 03/13/20 131 Order Status: Completed Specimen: Miscellaneous sample Updated: 03/13/202035 SARS-CoV-2 Not detected Comment: Testing Performed by:[id number] [address] [id number] REPORT FROM REFERENCE LAB CULTURE, RESPIRATORY/ SPUTUM/BRONCH W GRAM STAIN [[id number]] Order Status: Sent Specimen: Sputum from Tra nstracheal Aspirate COVID-19, CUSTOMER SALES DISTRIBUTOR [[id number]] Collected: 03/13/20 1315 Order Status: CanceledI made multiple sequential attempts to place a catheter under sterileconditi ons. This included gentle placement of a 16 Citizen Of [place] and 14 Citizen [place] coudeunsuccessfully . This was followed by flexible cystoscopy as well as the use ofa flexible ureteros cope. I could not to be confident that I had accessed thebladder and therefore after an adequate attempt, the procedure was aborted atbedside.Radiology Images:Ct He ad Wo ContResult Date: 03/13/2020CT HEAD WO CONT Clinical data: AMS Priors: None. Te chnique: Multiple axialimages were obtained from the skullbase to the vertex without administration ofintravenous contrast. Sagittal and coronal reconstruction was performed.Utilizing desk interviewer algorithm the examination was performed to optimiz eimaging quality by utilizing the lowest possible radiation dose. Findings: There is no evidence of intracranial hemorrhage, masses, acute cortical infarction, ormid line shift. There are no extra-axial fluid collections. There is noevidenceof hydr ocephalus. There is periventricular low-attenuationparticularlywithin the le ft posterior frontoparietal lobe suggestive of smallvessel ischemic change probably chronic. There is an old right posteriorparietal encephalomalacia with small dystrophic calcification consistent with aremote infarction. Vascular calci fications noted. Sulcal prominencesuggestive of brain parenchyma l volume loss. The bony calvarium shows noevidence of fracture or destructive jesus ny process.IMPRESSION: Left periventricular hypoattenuation suggestive of small vess elischemic change probably chronic. 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 Frandy vidence of hemorrhage. Should clinical concern persists then considerfollow-up MRI.Ct Chest Abd Pelv Wo ContResult Date: 03/16/2020CT CHEST ABD PELV WO CONT Histo ry: Persistent bacteremia and worseningleukocytosis. Technique: CT of the chest, abdomen and pelvis was performed fromthe thoracic inlet to the pubic symp hysis without oral and intravenous contrast.Coronal and sagittal reformats were performed. The lack of intravenous contrastand oral contrast limits evaluat ion of the solid abdominal viscera and softtissues. Using desk interviewer's algori thms the examination was performed tooptimize image quality while utilizing the lowest possible radiation dose. Oneor more of the following doses reduction techniques was used: Decreasing the mAand or kV, automatic exposure control and iterative reconstru ction algorithm.Comparison: No priors available for comparison. Findings: Ther e is atracheostomy tube. There are bilateral pleural effusions with adjacentatelectas is. There is fluid in the major fissure on the left. There areextensive coronary ar darius calcifications. There is cardiomegaly. There is nomediastinal, hilar or axillar y lymphadenopathy. There are gallstones. There is a2.2 cm hypodensity in the midp ortion of the right kidney likely a cyst howevernot fully evaluated on this nonco ntrast exam. No hydronephrosis, hydroureter orrenal calculus is identified. There ar e several calcifications in the dependentportion of the bladder compatib le with bladder calculi. There are prostateseeds. The liver, spleen, pancre as and adrenal glands appear unremarkable. Thereis a G-tube identified in the stoma ch. No abdominal, pelvic or inguinallymphadenopathy is identified. T here are small to moderate pelvic free fluid. Nodilated loops of bowel are identified. There is diverticulosis of the sigmoidcolon without evidence of acute diverticulitis . The appendix is not identifiedhowever there is no secondary evidence for acute appen dicitis. There ismoderateatherosclerotic calcification of the aorta with the mid abdominal aortameasuring 2.6 cm. There is a moderately S-shaped scoliosis of the tho racolumbarspine.IMPRESSION: Small to moderate bilateral pleural effusions with adjacen tatelectasis. Superimposed infiltrates are difficult to exclude. There is pelvicfre e fluid. There are gallstones. There is diverticulosis without evidence acutediv erticulitis. There is a 2.2 cm hypodensity in the midportion of the rightkidney not fu lly evaluated on this noncontrast exam. PS Electronically Signed:Kaleb Brambila 03/16/2020 2:30 PMXAssessment/Plan:Unable to reinsert Kelly catheter in spite of my m ultiple maneuvers includingbedside endoscopy.We will plan Kelly placement i n the operating room later tonight. As a lastresort we will place a suprapubic tu be. I spoke with the patient's andobtained phone consent for both the p rocedure and anesthesia. Name Value Range Interpretation Code Description Data Annabelle rce(s) Supporting Document(s ) ID Date Data Source [id number] 03/16/2020 07:02:25 PM EDT [facility] Relevant ProblemsNo relevant active prob lemsAnesthetic HistoryReview of Systems / Medical HistoryPulmonary Neuro/PsychCVAT IA CardiovascularHypertensionDysrhythmias : atrial fibrillationCADGI/Hepatic/Renal E ndo/OtherHypothyroidism Other FindingsPhysical ExamAirwayMallampati: I IITM Distance: 4 - 6 cmNeck ROM: normal range of motionMouth opening: NormalComments: Trach, on cpap Cardiovascular DentalPulmonary Abdominal Other FindingsAnesthetic PlanA SA: 4, emergentAnesthesia type: generalInduction: IntravenousAnesthetic plan and risks discussed with: Spouse Name Value Range Interpretation Code Description Data Annabelle rce(s) Supporting Document(s ) ID Date Data Source [id number] 03/16/2020 07:01:37 PM EDT [facility] Stool for cdiff sent ,had 3 loose brown bowel movements Name Value Range Interpretation Code Description Data Annabelle rce(s) Supporting Document(s ) ID Date Data Source [id number] 03/16/2020 06:58:13 PM EDT [facility] Unable to insert the kelly at bedside .U rologist will take the patient to OR forfoley placement .called the Flory and lisa vazquez aware about the situation Name Value Range Interpretation Code Description Data Annabelle rce(s) Supporting Document(s ) ID Date Data Source [id number] 03/16/2020 06:56:11 PM EDT [facility] Unable to place the kelly , called urolo gy consult for placing kelly , Name Value Range Interpretation Code Description Data Annabelle rce(s) Supporting Document(s ) ID Date Data Source [id number] 03/21/2020 05:26:46 AM EDT [facility] Name Value Range Interpretation Description Data Sup porting Code Source(s) Document(s ) Service comment [facility] Bacteria [facility] identified in [facility] specimen by Culture ID Date Data Source [id number] 03/22/2020 03:57:15 PM EDT [facility] Name Value Range Interpretation Description Data Sup porting Code Source(s) Document(s ) Service comment [facility] Bacteria [facility] identified in [facility] specimen by Culture ID Date Data Source [id number] 03/16/2020 08:23:40 PM EDT [facility] Name Value Range Interpretation Description Data Sup porting Code Source(s) Document(s ) Leukocytes 40.5 4.8-10.6 Above upper panic [facility] - Goo d [#/volume] in K/uL limits [facility] Blood by Hospital Automated count CALLED TO AND READ BACK ESTER Daily 195303/16/20,NATE MOLINA Erythrocytes [#/volume] 3.17 M/uL 4.70-6.00 Below low normal [facility] in Blood by Automated [facility] count Hemoglobin 9.3 g/dL 14.0-18.0 Below low normal [facility] [Mass/volume] in Blood [facility] Hematocrit [Volume 29.4 % 42.0-52.0 Below low normal [facility] Fraction] of Blood by [facility] Automated count Erythrocyte mean 92.7 FL 81.0-94.0 [facility] corpuscular volume [facility] ospital [Entitic volume] by Automated count Erythrocyte mean 29.3 PG 27.0-35.0 [facility] corpuscular hemoglobin [facility] [Entitic mass] by Automated count Erythrocyte mean 31.6 g/dL 30.7-37.3 [facility] corpuscular hemoglobin [facility] concentration [Mass/volume] by Automated count Erythrocyte 18.2 % 11.5-14.0 Above high [facility] - [facility] distribution width normal [facility] ospital [Ratio] by Automated count Platelets [#/volume] in 130 K/uL 130-400 [facility] Blood by Automated [facility] ospital count Platelet mean volume 13.2 FL 9.2-11.8 Above high [facility] - [facility] [Entitic volume] in normal [facility] Blood by Automated count Nucleated 0.0 PER 100 0 [facility] erythrocytes/100 WBC [facility] pital leukocytes [Ratio] in Blood Nucleated erythrocytes 0.00 K/uL 0.0-0.01 [facility] - [facility] [#/volume] in Blood [facility] Segmented 85 % 48.0-72.0 Above high [facility] neutrophils/100 normal [facility] ital leukocytes in Blood Band form 8 % 0 Above high [facility] neutrophils/100 normal [facility] ital leukocytes in Blood by Manual count Lymphocytes/100 5 % 18.0-40.0 Below low normal [facility] leukocytes in Blood [facility] Monocytes/100 2 % 2.0-12.0 [facility] leukocytes in Blood [facility] Eosinophils/100 0 % 0.0-7.0 [facility] leukocytes in Blood [facility] Basophils/100 0 % 0.0-3.0 [facility] leukocytes in Blood [facility] Metamyelocytes/100 0 % 0 [facility] - Goo d leukocytes in Blood by [facility] Manual count Myelocytes/100 0 % 0 [facility] leukocytes in Blood by [facility] Manual count Promyelocytes/100 0 % 0 [facility] leukocytes in Blood by [facility] Manual count Blasts/100 leukocytes 0 % 0 [facility] in Blood by Manual [facility] ospital count Other cells/100 0 [facility] leukocytes in Blood by [facility] Manual count Immature 0 % [facility] granulocytes/100 [facility] pital leukocytes in Blood by Automated count Segmented neutrophils 37.7 K/UL 2.3-7.6 Above high [facility] [#/volume] in Blood normal [facility] Lymphocytes [#/volume] 2.0 K/UL 0.9-4.2 [facility] in Blood [facility] Monocytes [#/volume] in 0.8 K/UL 0.1-1.7 [facility] Eosinophils [#/volume] 0.0 K/UL 0.0-1.0 [facility] in Blood [facility] Basophils [#/volume] in 0.0 K/UL [facility] Immature granulocytes 0.0 K/UL [facility] [#/volume] in Blood by [facility] Automated count 2+ANISOCYTOSIS1+HYPOCHROMIAOCCASIONALPOL YCHROMASIAOCCASIONALSCHISTOCYTES Leukocyte morphology finding [Identifier] [facility] in Blood DOHLE BODIES1+TOXIC GRANULATION Platelet adequacy [Presence] in Blood by [facility] Light microscopy Differential cell count method - Blood [facility] ID Date Data Source [id number] 03/18/2020 07:54:58 AM EDT [facility] Name Value Range Interpretation Description Data Sup porting Code Source(s) Document(s ) Clostridium NEG [facility] difficile toxin [facility] genes [Presence] Hospital in Stool by Probe and target amplification method This specimen is negative for toxigenic C difficile by DNA amplification. Repeat testing is not recommended for confirmat ion, samples received within 7 days of this negative result will be rejected. ID Date Data Source [id number] 03/16/2020 03:26:12 PM EDT [facility] Progress NotePatient: Carlyle Pate Sex: male DOA: 03/13/2022Date of : 1945 Age: 75 y.o. LOS: LOS: 3 daysSubjective:On trach collar this AM,m uch more alert , awake and interactive, c/o RUE pain,RN and ID physician at bedside, Dr Nancejective:Visit VitalsBP (!) 154/93Pulse 80Temp 98.2 F (36.8 C)Resp 24Ht 5' 7" (1.702 m)Wt 86.5 kg (190 lb 11.2 oz)SpO2 98%BMI 29.87 kg/m Physical Exam: Physical ExamConstitutional: Appearance: He is ill-appearing.HENT: Head: Normoceph alic and atraumatic.Eyes: Extraocular Movements: Extraocular movements intact. Neck: Musculoskeletal: Neck supple.Cardiovascular: Rate and Rhythm : Normal rate and regular rhythm.Pulmonary: Effort: Pulmonary effort is normal. Br eath sounds: Normal breath sounds.Abdominal: General: Abdomen is flat. Palpations: Abdomen is soft.Skin: General: Skin is warm.Neurological: General: No focal d eficit present.+ PEG and trachRUE tenders and edematousIntake and Output:Current Shift : No intake/output data recorded.Last three shifts: 03/14 1901 - 03/16 0700In: 3161 .7 [I.V.:2101.7]Out: 1505 [Urine:1505]Lab/Data Reviewed:BMP:Lab Re sultsComponent Value Date/Time NA 141 03/16/2020 04:16 AM K 3.2 (L) 03/16/2020 04:16 AM CL 112 (H) 03/16/2020 04:16 AM CO2 19 (L) 03/16/2020 04:16 AM AGAP 13 03/16 04:16 AM GLU 154 (H) 03/16/2020 04:16 AM BUN 55 (H) 03/16/2020 04:16 AM CREA 1 .62 (H) 03/16/2020 04:16 AM GFRAA 53 (L) 03/16/2020 04:16 AM GFRNA 44 (L) 020 04:16 AMCMP:Lab ResultsComponent Value Date/Time NA 141 03/16/2020 04:16 AM K 3 .2 (L) 03/16/2020 04:16 AM CL 112 (H) 03/16/2020 04:16 AM CO2 19 (L) 0 04:16 AM AGAP 13 03/16/2020 04:16 AM GLU 154 (H) 03/16/2020 04:16 AM BUN 55 (H) 0 03/16/2020 04:16 AM CREA 1.62 (H) 03/16/2020 04:16 AM GFRAA 53 (L) 03/16/2020 04:16 A M GFRNA 44 (L) 03/16/2020 04:16 AM CA 8.7 03/16/2020 04:16 AM ALB 2.2 (L) 03/16/20 20 04:16 AM TP 7.3 03/16/2020 04:16 AM GLOB 5.1 (H) 03/16/2020 04:16 AM AGRAT 0.4 (L ) 03/16/2020 04:16 AM SGOT 124 (H) 03/16/2020 04:16 AM ALT 29 03/16/2020 04:16 AMCBC:L ab ResultsComponent Value Date/Time WBC 51.9 (HH) 03/16/2020 04:16 AM HGB 9.4 (L) 04:16 AM HCT 29.8 (L) 03/16/2020 04:16 AM PLT 137 03/16/2020 04:16 AMAll Cardiac Markers in the last 24 hours: No results found for: CPK, CK, CKMMB,CKMB, RCK3, CKMBT, CKNDX, CKND1, GENO, TROPT, TROIQ, HARDEEP, TROPT, TNIPOC, BNP,BNPPRecent Gluc ose Results:Lab ResultsComponent Value Date/Time GLU 154 (H) 03/16/2020 04:16 A MABG: No results found for: PH, PHI, PCO2, PCO2I, PO2, PO2I, HCO3, HCO3I, FIO2,FIO2 ICOAGS: No results found for: APTT, PTP, INR, INREXT, INREXTLiver Panel:Lab ResultsCom ponent Value Date/Time ALB 2.2 (L) 03/16/2020 04:16 AM TP 7.3 03/16/2020 04:16 AM GLOB 5.1 (H) 03/16/2020 04:16 AM AGRAT 0.4 (L) 03/16/2020 04:16 AM SGOT 124 (H) 020 04:16 AM ALT 29 03/16/2020 04:16 AM AP 112 03/16/2020 04:16 AMPancreatic Marker s: No results found for: AMYLPOCT, AML, LIPPOCT, LPSEMedications ReviewedCurrent Facility-Administered Medications: hydrocortisone Sod Succ (PF) (SOLU-ANGI F) injection 25 mg, 25 mg,IntraVENous, Q12H, Pati Childs MD cefTRIAXone (ROCEPH IN) 2 g in 0.9% sodium chloride (MBP/ADV) 50 mL MBP, 2 g,IntraVENous, Q24H, Teresita Lares MD, Last Rate: 100 mL/hr at 03/16/20 1339, 2 gat 03/16/20 1339 acetaminophe n (TYLENOL) solution 650 mg, 650 mg, Per G Tube, Q4H PRN, Dusty Curiel MD, 650 mg at 03/16/20 0859 midodrine (PROAMATINE) tablet 10 mg, 10 mg, Oral, TID WITH MEAL S, Beto Flores MD, Stopped at 03/16/20 0800 levothyroxine (SYNTHROID) tablet 200 mcg, 200 mcg, Per G Tube, ACB, Beto Flores MD, 200 mcg at 03/16/20 0 639 0.9% sodium chloride infusion, 50 mL/hr, IntraVENous, CONTINUOUS, Bridger Gramajo MD, Last Rate: 50 mL/hr at 03/15/202112, 50 mL/hr at 03/15/202112 sodium chloride (NS) flush 5-10 mL, 5-10 mL, IntraVENous, PRN, Chiquita Velazquez MD onda nsetron (ZOFRAN) injection 4 mg, 4 mg, IntraVENous, Q6H PRN, Chiquita Velazquez MD enoxaparin (LOVENOX) injection 40 mg, 40 mg, SubCUTAneous, Q24H, Sd Gramajo MD, Stopped at 03/13/202099 pantoprazole (PROTONIX) 40 mg in 0.9% sodium chloride 10 mL injection, 40 mg,IntraVENous, DAILY, Sd Gramajo MD, 40 mg at 03/16/20 0 859Continued hospitalization is indicated due to sepsisAssessment/PlanActive Problems: Septic shock (HCC) (03/13/2020) 1)Septic shock due to Klebsiella bacteremia/UTI:O ff pressersChange abx to IV rocephin per C&SRepeat blood cx still +Repeat blood c xCont IVFPulm followingCont Midodrine, decrease SolucortefWBC worse today up to 50KUrine strep AG and legionella (-)CT chest/abd/pelvis unrevealingR wrist Xray (p)Replace kelly by urologyPICC when blood Cx (-)Recheck WBC in AM2)Acute respirato ry failure:resolvedCont vent by trachPulm managing ventCont nebs3)Metabolc encepha lopathy:resolvedDue to #1 and #2Full codeDVT ppx: Lovenox Name Value Range Interpretation Code Description Data Annabelle rce(s) Supporting Document(s ) ID Date Data Source [id number] 03/16/2020 02:30:25 PM EDT [facility] CT CHEST ABD PELV WO CONTHistory: Persi stent bacteremia and worsening leukocytosis.Technique: CT of the chest , abdomen and pelvis was performed from the thoracicinlet to the pubic symphysis wit hout oral and intravenous contrast. Coronal andsagittal reformats were performed. Th e lack of intravenous contrast and oralcontrast limits evaluation of the so lid abdominal viscera and soft tissues.Using desk interviewer's algorithms the examinatio n was performed to optimize imagequality while utilizing the lowest possible radi ation dose. One or more of thefollowing doses reduction techniques was used: Decreasin g the mA and or kV,automatic exposure control and iterative reconstruction algorithm.C omparison: No priors available for comparison.Findings:There is a tracheost marina tube. There are bilateral pleural effusions withadjacent atelectasis. Ther e is fluid in the major fissure on the left.There are extensive coronary artery calcifications. There is cardiomegaly.There is no mediastinal, hilar or axillary lym phadenopathy.There are gallstones. There is a 2.2 cm hypodensity in the midportion of theright kidney likely a cyst however not fully evaluated on this noncontrast exam .No hydronephrosis, hydroureter or renal calculus is identified. There areseveral calcifications in the dependent portion of the bladder compatible withbladder calcu li. There are prostate seeds.The liver, spleen, pancreas and adrenal glands appe ar unremarkable.There is a G-tube identified in the stomach.No abdominal, pelvic or i nguinal lymphadenopathy is identified. There are smallto moderate pelvic free fluid.N o dilated loops of bowel are identified. There is diverticulosis of the sigmoidco felipe without evidence of acute diverticulitis. The appendix is not identifiedhowever th ere is no secondary evidence for acute appendicitis.There is moderate atheroscl erotic calcification of the aorta with the midabdominal aorta measuring 2.6 cm.Ther e is a moderately S-shaped scoliosis of the thoracolumbar spine.IMPRESSION: Small to moderate bilateral pleural effusions with adjacent atelectasis.Superimposed infilt rates are difficult to exclude.There is pelvic free fluid.There are gallstones.T here is diverticulosis without evidence acute diverticulitis.There is a 2.2 cm hypoden sity in the midportion of the right kidney not fullyevaluated on this noncontrast e xam.PS Electronically Signed: Harlan Sarabia MD 03/16/2020 2:30 PM Signing date/time: 03/16/2020 2:30 PMSigned by: HARLAN SARABIA Name Value Range Interpretation Code Description Data Annabelle rce(s) Supporting Document(s ) ID Date Data Source [id number] 03/16/2020 01:41:57 PM EDT [facility] Tried to replace the kelly unable to get the urine out and he started oozingaround the penis, called urologist Dr Carreon for further evaluation Name Value Range Interpretation Code Description Data Annabelle rce(s) Supporting Document(s ) ID Date Data Source [id number] 03/16/2020 12:00:49 PM EDT [facility] ID Progress Note03/16/2020Subjective:Curr ently afebrile.No other changes.Objective:Vitals:Visit VitalsBP 142/89Pulse 88Temp 97.9 F (36.6 C)Resp 27Ht 5' 7" (1.702 m)Wt 86.5 kg (190 lb 11.2 o z)SpO2 96%BMI 29.87 kg/m Tmax: Temp (24hrs), Av.5 F (36.9 C), Min:97.9 F (36.6 C), Max:99.2 F(37.3 C)Exam:General: Sedated and on the ventilator.Eyes: Scl era anicteric.Mouth/Throat: Tracheal tube in place.Neck: Supple.Lungs: Clear to aus cultation bilaterally.Cardiovascular: Regular rate and rhythm.Abdomen: Soft, non-tender, bowel sounds normal, non-distended.Extremities: No cyanosis o r edema.Labs:CBC:Recent Labs 03/15/200350 WBC 51.9* 39.8* 27.3*RBC 3.24* 2.89* 2.93*HGB 9.4* 8.5* 8.5*HCT 29.8* 27.0* 27.6*PLT 137 131 164 GRANS 86* 88* 82*LYMPH 2* 1* 1*EOS 0 0 0CMP:Recent Labs 350 05/14/540185AOP 154* 103 89NA 141 140 140K 3.2* 3.9 3.9CL 112* 110* 109*CO2 19 * 21 22BUN 55* 46* 41*CREA 1.62* 1.67* 1.78*CA 8.7 7.8* 7.3*AGAP 13 14 12AP 112 76 61TP 7.3 6.2* 6.2*ALB 2.2* 1.9* 2.1*GLOB 5.1* 4.3 4.1AGRAT 0.4* 0.5* 0.5*Antibiot ic Monitoring:Lab ResultsComponent Value Date/Time Vancomycin,trough 15.0 020 09:55 AMUrinalysis:Lab ResultsComponent Value Date/Time Color YELLOW 03/13/2020 10:50 AM Appearance CLOUDY (A) 03/13/2020 10:50 AM Specific gravity 1.015 03/13/20 20 10:50 AM pH (UA) 8.0 03/13/2020 10:50 AM Protein Negative 03/13/2020 10:50 AM Glu cose Negative 03/13/2020 10:50 AM Ketone Negative 03/13/2020 10:50 AM Bilirubin N egative 03/13/2020 10:50 AM Blood LARGE (A) 03/13/2020 10:50 AM Urobilinogen 0.2 10:50 AM Nitrites Negative 03/13/2020 10:50 AM Leukocyte Esterase TRACE (A) 10:50 AM WBC 20-50 03/13/2020 10:50 AM RBC TOO NUMEROUS TO COUNT 03/13/2020 10:50 AM Epithelial cells 0-3 03/13/2020 10:50 AM Bacteria 4+ 03/13/2020 10:50 AM Crystals, urine NONE 03/13/2020 10:50 AMCultures:No results found for: SDESLab ResultsComponent Value Date/Time Culture result: IDENTIFICATION AND SUSCEPTIBILIT Y TO FOLLOW 03/15/2020 11:45 AM Culture result: IDENTIFICATION AND SUSCEPTIBILIT Y TO FOLLOW 03/15/2020 11:40 AM Culture result: (A) 03/14/2020 11:00 PM LIGHT G ROWTH GRAM NEGATIVE RODS IDENTIFICATION AND SUSCEPTIBILITY TO FOLLOWRadiology:Ct Hea d Wo ContResult Date: 03/13/2020CT HEAD WO CONT Clinical data: AMS Priors: None. Te chnique: Multiple axialimages were obtained from the skullbase to the vertex without administration ofintravenous contrast. Sagittal and coronal reconstruction was performed.Utilizing desk interviewer algorithm the examination was performed to optimiz eimaging quality by utilizing the lowest possible radiation dose. Findings: There is no evidence of intracranial hemorrhage, masses, acute cortical infarction, ormid line shift. There are no extra-axial fluid collections. There is noevidenceof hydr ocephalus. There is periventricular low-attenuationparticularlywithin the le ft posterior frontoparietal lobe suggestive of smallvessel ischemic change probably chronic. There is an old right posteriorparietal encephalomalacia with small dystrophic calcification consistent with aremote infarction. Vascular calci fications noted. Sulcal prominencesuggestive of brain parenchyma l volume loss. The bony calvarium shows noevidence of fracture or destructive jesus ny process.IMPRESSION: Left periventricular hypoattenuation suggestive of small vess elischemic change probably chronic. 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 Frandy vidence of hemorrhage. Should clinical concern persists then considerfollow-up MRI.Xr Chest PortResult Date: 03/14/2020CHEST one view HISTORY: Followup lung patholog y. Comparison is made to03/13/2020. Accounting for differences in technique ( ) there h as been nosignificant change of a lower lobe atelectasis. However there appears to be anincrease of an infiltrate in the right midlung or lower lung field. No otherint erval change is noted.IMPRESSION: Increase of right midlung or lower lung field field infiltrate.Xr Chest PortResult Date: 03/13/2020XR CHEST PORTABLE-SINGLE VIEW P RIOR: None HISTORY: Limited to that provided bythe emergency department at the time o f this examination; BIBA from [facility] for resfailure Pt has trach collar and vente d FINDINGS: Mild increased interstitialmarkings are identified bila terally consistent with infiltrates. There is mildhaziness of the costophrenic angle o n the left suggesting a small effusion. Noright effusion is present. A tracheost marina is present and in goodposition-unchanged. The cardiac silhouette is at the upper l imits of normal tomildly enlarged. There is a significant dorsal scoliotic curvature o f thethoracic spine.IMPRESSION: 1. Mild increased interstitial margins bilateral ly consistent withinfiltrates. 2. Small left effusion. 3. Upper limits of normal to m ild cardiacenlargement.Duplex Upper Ext Venous RightResult Date: 03/13/2020DUPLEX UPPER EXT VENOUS RIGHT Clinical indication: evaluate of RUE DVT . Edema.Priors: None . FINDINGS: The right subclavian vein up to the brachial vein iscompressible and maegan ws normal phasic flow without an intraluminal thrombus. Inaddition, the right commercial internship al jugular vein, cephalic vein and the basilic veinis also patent.IMPRESSION: N o evidence of deep vein thrombosis within the right upperextremity venous circulation . PS Electronically Signed: Juan Acevedo MD03/13/2020 5:10 PMLine/Insert Date: Peripheral IV:Assessment:1. 75 year old male with gram negative (Klebsiella) sepsis, probably secondaryto urinary tract infection.2. Respiratory failure.3. H/O Aphasia, CAD, Cancer of head and neck.Plan:1. Now on IV Ceftriaxone, based on cs findi ngs.2. Off of IV Zosyn.3. Off of IV Vancomycin and Tobramycin.4. Repeat anot her set of blood cs today.5. Will obtain CT scan of the chest/abd/pelvis in view wor sening WBC andpersistent bacteremia.6. Monitor labs.7. Vent per pulmonary.Sandi Lares MD Name Value Range Interpretation Code Description Data Annabelle rce(s) Supporting Document(s ) ID Date Data Source [id number] 03/16/2020 10:30:47 AM EDT [facility] Pulmonary/CCM Progress NoteName: Carlyle Pate : 1945 [facility]IM PRESSION/[id number] male with a history of reported atrial fibrillation 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 Status post admission to [facility] on 01/31-> 03/12--> [facility] --> [facility] 03/13 secondary to lethargy, respiratory distress, fever andhypotension-Cultures at [facility] showing G NR / bottles; Klebsiella sepsis, Clinicallyimproving, but significant loretta kocytosis - worsening. 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 Wean hydrocortisone 50 mg [id number] edema asymmetric. Dopplers negative-Afib rate controlled. Patient on DVT treatment dosage of lovenox prior totransfer, will continue-On vent due to AMS, on 40% PEEP 5 PRVC. Tolerated CPAP/PS. Will trial trac hcollar during the day as patient was previously on trach collar-DVT and SUP p rophy-Updated [phone]:Awake, interactiv e.Past Medical History:Diagnosis Date Anxiety Aphasia Atrial fibrillation (H CC) with ventricular tachycardia Bilateral carotid artery disease (HCC) CAD (coron tg artery disease) Chronic cystitis Dysphagia Head and neck cancer (HCC) H emiparesis (HCC) right side HLD (hyperlipidemia) Hypertension Hypoxemi a Infarction of left basal ganglia (HCC) intracranial hemorrhage Pneumonia Pros douglas cancer (HCC) Respiratory failure (HCC) S/P percutaneous endoscopic gastrostomy (PEG) tube placement (HCC) Thymus cancer (HCC) Thyroid cancer (HCC)Past Surgical History:Procedure Laterality Date HX OTHER SURGICAL thymus gland removed HX TRACHE OSTOMY IR INSERT GASTROSTOMY TUBE PERCPrior to Admission medicationsMedication Sig S tart Date End Date Taking? Authorizing ProvideramLODIPine (NORVASC) 10 mg table t 10 mg by Per G Tube route daily. Yes Other,MD Adrienescitalopram oxalate (CHACE PRO) 10 mg tablet 10 mg by Per G Tube route daily.Yes Other, Adrien MDfamotidine (PEP ARTEMIO) 20 mg tablet 20 mg by Per G Tube route two (2) times a day.Yes Other, PhysShanna abapentin (NEURONTIN) 100 mg capsule 100 mg by Per G Tube route three (3) timesdaily . Yes Other, Adrien MDlevothyroxine (SYNTHROID) 200 mcg tablet Take 200 mcg by mouth Daily (beforebreakfast). Yes Other, Amanda Juradoelatonin 5 mg cap capsul e Take 9 mg by mouth nightly. Yes Other, Phys, MDsennosides 17.2 mg tab 17.2 mg b y PEG Tube route daily. Yes Other, Phys, MDlosartan (COZAAR) 100 mg tablet 150 mg by Per G Tube route daily. Yes Other,Phys, MDdoxazosin (CARDURA) 1 mg tablet 1 mg b y Per G Tube route nightly. Yes Other,Phys, MDascorbic acid, vitamin C, (VITAMIN C) 500 mg tablet 500 mg by Per G Tube routedaily. Yes Other, Phys, MDchlorhe xidine (PERIDEX) 0.12 % solution 15 mL by Swish and Spit route daily.Yes Other, Ph ys, MDdocusate sodium (Colace) 100 mg capsule 200 mg by Per G Tube route daily. YesO ther, Phys, MDDOCUSATE SODIUM-BENZOCAINE RE Insert 5 mL into rectum. Every 2 days Yes Other,Phys, MDmultivitamin (ONE A DAY) tablet 1 Tab by Per G Tube route daily. Yes Other,Phys, MDnystatin (MYCOSTATIN) topical cream Apply to affected area th ree (3) timesdaily. Yes Other, Phys, MDpolyethylene glycol (MIRALAX) 17 gram packet Take 17 g by mouth daily. YesOther, Phys, MDSENNA 528 mg by PEG Tube route. Yes Other, Phys, MDergocalciferol (Vitamin D2) 1,250 mcg (50,000 unit) capsule Take 50,000 Units bymouth. Yes Other, Phys, MDALBUTEROL IN Take 2 Puffs by inhalatio n four (4) times daily. Yes Other, Phys,MDaspirin (ASPIRIN) 325 mg tablet 3 25 mg by PEG Tube route daily. Yes Other,Phys, MDatorvastatin (LIPITOR) 40 mg tablet 40 mg by Per G Tube route daily. YesOther, Phys, MDbisacodyL 5 mg tab Ins ert 10 mg into rectum nightly. Yes Other, Phys, MDenoxaparin (Lovenox) 40 mg/0.4 m L 40 mg by SubCUTAneous route daily. YesOther, Phys, MDpotassium bicarb-citri c acid (EFFER-K) 20 mEq tablet Take 20 mEq by mouth two(2) times a day. Yes Other, P hys, MDFLUTICASONE PROPIONATE IN 1 [place] by Nasal route two (2) times a day. YesOt her, Phys, MDALPRAZolam (XANAX) 0.25 mg tablet 0.25 mg by Per G Tube route every eight (8)hours as needed for Anxiety. Yes Other, Phys, traMADoL (ULTRAM) 50 mg t ablet 50 mg by Per G Tube route every six (6) hours asneeded for Pain. Yes Other, Ph ys, MDacetaminophen (TYLENOL) 325 mg tablet 650 mg by Per G Tube route every four (4 )hours as needed for Pain. Yes Other, Elena Jurado Known AllergiesSocial HistoryTobacc o Use Smoking status: Former Smoker Smokeless tobacco: Never UsedSubstance U se Topics Alcohol use: Not CurrentlyHistory reviewed. No pertinent family history.Cu rrent Facility-Administered MedicationsMedication Dose Route Frequen cy hydrocortisone Sod Succ (PF) (SOLU-CORTEF) injection 50 mg 50 mg Int [id number] cefTRIAXone (ROCEPHIN) 2 g in 0.9% sodium chloride (MBP/ADV) 50 mL MBP 2 gIntraVENous Q24H midodrine (PROAMATINE) tablet 10 mg 10 mg Oral TID WITH MEALS levothyroxine (SYNTHROID) tablet 200 mcg 200 mcg Per G Tube ACB 0.9% sodium chlo ride infusion 50 mL/hr IntraVENous CONTINUOUS enoxaparin (LOVENOX) injecti on 40 mg 40 mg SubCUTAneous Q24H pantoprazole (PROTONIX) 40 mg in 0.9% so dium chloride 10 mL injection 40 mgIntraVENous DAILYReview of Systems:n/a Objective:Vital Signs:Visit VitalsBP 126/63Pulse 94Temp 97.9 F (36.6 C)Resp 28Ht 5' 7" (1.702 m)Wt 86.5 kg (190 lb 11.2 oz)SpO2 97%BMI 29.87 kg/m O2 Device: Sushant Hernandez (24hrs), Av.5 F (36.9 C), Min:97.9 F (36.6 C), Max:99.2 F (37.3 C)Physical Exam:General: Awake, interactiveHead: Normocephalic, without obvious abnormality, atraumatic.Eyes: Conjunctivae/corneas clear. PERRL, EOMs intact.Nose: Nares normal. Septum midline. Mucosa normal. No drainage or sinustende rness.Throat: Lips, mucosa, and tongue normal. Teeth and gums normal. + trach. MinimalsecretionsNeck: Supple, symmetrical, trachea midline, no adenopathy, thyroid: noenlargment/tenderness/nodules, no carotid bruit and no JVD.Back: Symmetric, no c urvature. ROM normal.Lungs: B/l rhonchiChest wall: No tenderness or def ormity.Heart: Regular rate and rhythm, S1, S2 normal, no murmur, click, rub or gall op.Abdomen: Soft, mildly distended, non- tender + PEG cleanExtremities: + edema. Right groin TLCPulses: Poorly palpableSkin: Skin color, texture, turgor normal. No r ashes or lesionsLymph nodes: Cervical, supraclavicular, and axillary nodes norm al.Neurologic: Awake, interactiveData review:Recent Results (from the past 24 hour(s))CULTURE, BLOOD Collection Time: 03/15/20 11:40 AMResult Value Ref Range Special Requests: NO SPECIAL REQUESTS GRAM STAIN GRAM NEGATIVE RODS AEROBIC AND AMADEO EROBIC BOTTLES GRAM STAIN CALLED TO AND READ BACK BY CORENLIUS RAMOS RN [id number] 03/16/20 TRICIA REID Culture result: IDENTIFICATION AND SUSCEPTIBILITY TO FOL LOWCULTURE, BLOOD Collection Time: 03/15/20 11:45 AMResult Value Ref Range Special R equests: NO SPECIAL REQUESTS GRAM STAIN GRAM NEGATIVE RODS AEROBIC BOTTLE GRAM STAIN CALLED TO AND READ BACK BY RISSA RAMOS RN 0414 03/16/20 TRICIA PHILIPPE AN Culture result: IDENTIFICATION AND SUSCEPTIBILITY TO FOLLOWCBC WITH AUTOMAT ED DIFF Collection Time: 03/16/20 4:16 AMResult Value Ref Range WBC 51.9 (HH) 4 .8 - 10.6 K/uL RBC 3.24 (L) 4.70 - 6.00 M/uL HGB 9.4 (L) 14.0 - 18.0 g/dL HCT 29.8 (L ) 42.0 - 52.0 % MCV 92.0 81.0 - 94.0 FL MCH 29.0 27.0 - 35.0 PG MCHC 31.5 30.7 - 37. 3 g/dL RDW 17.9 (H) 11.5 - 14.0 % PLATELET 137 130 - 400 K/uL NRBC 0.0 0 PER 100 WB C ABSOLUTE NRBC 0.00 0.0 - 0.01 K/uL NEUTROPHILS 86 (H) 48.0 - 72.0 % BAND NE UTROPHILS 7 (H) 0 % LYMPHOCYTES 2 (L) 18.0 - 40.0 % MONOCYTES 4 2.0 - 12.0 % EOSINOPH ILS 0 0.0 - 7.0 % BASOPHILS 0 0.0 - 3.0 % MYELOCYTES 1 (H) 0 % IMMATURE GRANULOCYT ES 0 % ABS. NEUTROPHILS 48.8 (H) 2.3 - 7.6 K/UL ABS. LYMPHOCYTES 1.0 0.9 - 4.2 K/UL ABS. MONOCYTES 2.1 (H) 0.1 - 1.7 K/UL ABS. EOSINOPHILS 0.0 0.0 - 1.0 K/UL ABS. BASO PHILS 0.0 K/UL ABS. IMM. GRANS. 0.0 K/UL RBC COMMENTS 2+ANISOCYTOSIS RBC COMMENTS SLI GHTACANTHOCYTES RBC COMMENTS SLIGHTOVALOCYTES PLATELET ESTIMATE ADEQUATE DF MANUALMETA BOLIC PANEL, COMPREHENSIVE Collection Time: 03/16/20 4:16 AMResult Value Ref Range Sodium 141 136 - 145 mmol/L Potassium 3.2 (L) 3.5 - 5.1 mmol/L Chloride 112 (H) 98 - 1 07 mmol/L CO2 19 (L) 21 - 32 mmol/L Anion gap 13 10 - 20 mmol/L Glucose 154 (H) 74 - 1 06 mg/dL BUN 55 (H) 7 - 18 mg/dL Creatinine 1.62 (H) 0.70 - 1.30 mg/dL GFR est AA 53 (L) >60 ml/min/1.73m2 GFR est non-AA 44 (L) >60 ml/min/1.73m2 Calcium 8.7 8.5 - 10.1 mg/dL Bilirubin, total 0.6 0.2 - 1.0 mg/dL ALT (SGPT) 29 13 - 61 U/L AST (SGOT) 124 (H) 15 - 37 U/L Alk. phosphatase 112 45 - 117 U/L Protein, total 7.3 6.4 - 8.2 g/d L Albumin 2.2 (L) 3.5 - 4.7 g/dL Globulin 5.1 (H) 1.7 - 4.7 g/dL A-G Ratio 0.4 (L) 0.7 - 2.8Imaging:I have personally reviewed the patient's radiographs and have reviewed thereports:CXR with Trach ? Scant infiltrate vs atelectasis Name Value Range Interpretation Code Description Data Annabelle rce(s) Supporting Document(s ) ID Date Data Source [id number] 03/16/2020 09:29:02 AM EDT [facility] Problem: Mobility Impaired (Adult and Pe diatric)Goal: *Therapy Goal (Edit Goal, Insert Text)Note: Physical Therapy Goals 4 visits.Initiated . Patient will move from supine to sit and sit to supin e in bed with minimalassistance/contact guard assist within 4 visits.2. Patient will transfer from bed to chair and chair to bed with minimalassistance/contact guard assist using RW within 4 visits.3. Patient will perform sit to stand with moderate assistance within 4 visits. PHYSICAL THERAPY EVALUATIONPatient: Carlyle Pate (75 y.o . male)Date: 03/16/2020Primary Diagnosis: Septic shock (HCC) [A41.9, R65.21]Precau tions:ASSESSMENT :Based on the objective data described below, the patient presents wi th no activemovement of R UE; dec'd AROM/strength of R LE, normal AROM of L UE/LE. Ptpresents on trach collar, non-verbal but able to nod yes/no and mouth respons es.Pt required mod A for rolling, mod A x 2 for supine to sit and sit to supinetrans porter. Poor seated balance, required constant support to maintain balance.Sitting EOB pt instructed in performing weight shifting, UE flexion, seatedmarches, long arc quad s and ankle pumps. Performed PROM of R UE and cupping toimprove airway clearance. Pt r epositioned in supine with RN present, all needsmet.Patient will benefit from skill ed intervention to address the above impairments.Patient's rehabilitation pot ential is considered to be GoodFactors which may influence rehabilitation potential i nclude:[x] None noted[] Mental ability/status[] Medical condition[] Home/family situation and support systems[] Safety awarene ss[] Pain tolerance/management[] Other:PLAN :Recommendations and Plann ed Interventions:[x] Bed Mobility Training [x] Neuromuscula rRe-Education[x] Transfer Training [] Orthotic/Prosthet icTraining[x] Gait Training [] Modalities[x] Therapeutic Exercises [] Edema Management/Control[x] Th erapeutic Activities [x] Patient and FamilyTraining/Education[] Other (comment):Frequency/Duration: Patient will be followed by physical the rapy 3 times a weekto address goals.Discharge Recommendations: Inpatient RehabFurther Equipment Recommendations for Discharge: tbdSUBJECTIVE:Patient mouthed that he fe els okOBJECTIVE DATA SUMMARY:Past Medical History:Diagnosis Date Anxiety Aphasia A trial fibrillation (HCC) with ventricular tachycardia Bilateral carotid artery dis ease (HCC) CAD (coronary artery disease) Chronic cystitis Dysphagia Head and neck cancer (HCC) Hemiparesis (HCC) right side HLD (hyperlipidemia) Hypertension Hypoxe reddy Infarction of left basal ganglia (HCC) intracranial hemorrhage Pneumonia Prosta te cancer (HCC) Respiratory failure (HCC) S/P percutaneous endoscopic gastrostomy (PEG ) tube placement (HCC) Thymus cancer (HCC) Thyroid cancer (HCC)Past Surgical Histor y:Procedure Laterality Date HX OTHER SURGICAL thymus gland removed HX TRACHEOSTOMY IR INSERT GASTROSTOMY TUBE PERCPrior Level of Function/Home Situation: Prior to hosp a dmissions in December, ptlived at home with , ambulating independently (but owns RW/SC); [facility] in rehabHome SituationHome Env ironment: Rehabilitation facilityOne/Two Story Residence: One storyLiving Alone: NoSupport Systems: Spouse/Significant Other/PartnerPatient Expects to be Disch arged to:: Rehabilitation facilityCurrent DME Used/Available at Home: Walker, rolling, Cane, straightCritical Behavior:Neurologic State: Alert;Eyes open spontaneouslyOrie ntation Level: Unable to verbalizeStrength:Strength: (R UE no act idalmis movement; normal AROM L UE/LE)Tone & Sensation:Tone: AbnormalSensation: Intac tRange Of Motion:AROM: (R UE no active movement; normal AROM L UE/LE)PROM: Gene rally decreased, functionalFunctional Mobility:Bed Mobility:Rolling: Moderate assistanceSupine to Sit: Moderate assistance;Assist x2Sit to Supine: Moder ate assistance;Assist [id number] Exercises:Ankle pumps, LAQ, marches, UE flexionPain:Pain Scale 1: Adult Nonverbal Pain ScaleActivity Tolerance:GoodPlease refer to the flowsheet for vital signs taken during this treatment.After treatment:[] Patient left in no apparent distress sitting up in chair[x] Patient l eft in no apparent distress in bed[x] Call pleitez left within reach[x] N ursing notified[] Caregiver present[] Bed alarm activatedCOMMUNICATION /EDUCATION:The patient's plan of care was discussed with: Registered Nurse.[x] Fall prevention education was provided and the patient/caregiverindicated under standing.[x] Patient/family have participated as able in goal setting and plan ofcare.[x] Patient/family agree to work toward stated goals and plan of care.[] Patient understands intent and goals of therapy, but is neutral abo uthis/her participation.[] Patient is unable to participate in goal setting an d plan of care.Thank you for this referral.Brooke Jones Time Calculation: 26 mins Name Value Range Interpretation Code Description Data [facility] rce(s) Supporting Document(s ) ID Date Data Source [id number] 03/16/2020 07:26:52 AM EDT [facility] Bedside and Verbal shift change report ashley House RN (oncoming nurse) Nora Ramos RN (offgoing nurse). Report incl uded the following informationSBAR, Intake/Output, MAR, Recent Results and C ardiac Rhythm A-fib. Name Value Range Interpretation Code Description Data [facility] rce(s) Supporting Document(s ) ID Date Data Source [id number] 03/16/2020 07:33:49 AM EDT [facility] Name Value Range Interpretation Description Data Sup porting Code Source(s) Document(s ) Leukocytes 51.9 4.8-10.6 Above upper panic [facility] - Goo d [#/volume] in K/uL limits [facility] Automated count CALLED TO AND READ BACK JENY CHEUNG EN RN [id number] 03/16/20 TRICIA REID Erythrocytes [#/volume] 3.24 M/uL 4.70-6.00 Below low normal [facility] - Good in Blood by Automated [facility] count Hemoglobin 9.4 g/dL 14.0-18.0 Below low normal [facility] - Good [Mass/volume] in Blood [facility] Hematocrit [Volume 29.8 % 42.0-52.0 Below low normal [facility] - Good Fraction] of Blood by [facility] Automated count Erythrocyte mean 92.0 FL 81.0-94.0 [facility] - Good corpuscular volume [facility] ospital [Entitic volume] by Automated count Erythrocyte mean 29.0 PG 27.0-35.0 [facility] - Good corpuscular hemoglobin [facility] [Entitic mass] by Automated count Erythrocyte mean 31.5 g/dL 30.7-37.3 [facility] - Good corpuscular hemoglobin [facility] concentration [Mass/volume] by Automated count Erythrocyte 17.9 % 11.5-14.0 Above high [facility] - Good distribution width normal [facility] ospital [Ratio] by Automated count Platelets [#/volume] in 137 K/uL 130-400 [facility] - Good Blood by Automated [facility] ospital count Nucleated 0.0 PER 100 0 [facility] - Good erythrocytes/100 WBC [facility] pital leukocytes [Ratio] in Blood Nucleated erythrocytes 0.00 K/uL 0.0-0.01 [facility] - Good [#/volume] in Blood [facility] Segmented 86 % 48.0-72.0 Above high [facility] - Good neutrophils/100 normal [facility] ital leukocytes in Blood Band form 7 % 0 Above high [facility] - Good neutrophils/100 normal [facility] ital leukocytes in Blood by Manual count Lymphocytes/100 2 % 18.0-40.0 Below low normal [facility] - Good leukocytes in Blood [facility] Monocytes/100 4 % 2.0-12.0 [facility] - Good leukocytes in Blood [facility] Eosinophils/100 0 % 0.0-7.0 [facility] - Good leukocytes in Blood [facility] Basophils/100 0 % 0.0-3.0 [facility] - Good leukocytes in Blood [facility] Myelocytes/100 1 % 0 Above high [facility] - Good leukocytes in Blood by [facility] Manual count Immature 0 % [facility] - Good granulocytes/100 [facility] pital leukocytes in Blood by Automated count Segmented neutrophils 48.8 K/UL 2.3-7.6 Above high [facility] - Good [#/volume] in Blood [facility] Lymphocytes [#/volume] 1.0 K/UL 0.9-4.2 [facility] - Good in Blood [facility] Monocytes [#/volume] in 2.1 K/UL 0.1-1.7 Above high [facility] - Good Blood [facility] Eosinophils [#/volume] 0.0 K/UL 0.0-1.0 [facility] - Good in Blood [facility] Basophils [#/volume] in 0.0 K/UL [facility] - Good [facility] Immature granulocytes 0.0 K/UL [facility] - Good [#/volume] in Blood by [facility] Automated count 2+ANISOCYTOSISSLIGHTACANTHOCYTESSLIGHTOV ALOCYTES Platelet adequacy [Presence] in Blood by [facility] Light microscopy Differential cell count method - Blood [facility] ID Date Data Source [id number] 03/16/2020 05:03:41 AM EDT [facility] Name Value Range Interpretation Description Data Sup porting Code Source(s) Document(s ) Sodium 141 136-145 [facility] - [Moles/volume] in mmol/L [facility] Serum or Plasma [facility] Potassium 3.2 3.5-5.1 Below low normal [facility] - [Moles/volume] in mmol/L [facility] Serum or [facility] Chloride 112 98-107 Above high [facility] - [Moles/volume] in mmol/L normal [facility] Serum or [facility] Carbon dioxide, 19 21-32 Below low normal [facility] - total mmol/L Good [Moles/volume] in [facility] or [facility] Anion gap in Serum 13 10-20 [facility] - or Plasma mmol/L [facility] Glucose 154 74-106 Above high [facility] - [Mass/volume] in mg/dL normal Good Serum or Plasma [facility] Urea nitrogen 55 7-18 Above high [facility] - [Mass/volume] in mg/dL normal Good Serum or Plasma [facility] Creatinine 1.62 0.70-1. Above high [facility] - [Mass/volume] in mg/dL 30 normal Good Serum or Plasma [facility] Glomerular 53 >60 Below low normal [facility] - filtration ml/min/ Good rate/1.73 sq M 1.73m2 [facility] predicted among Hospital blacks [Volume Rate/Area] in Serum or Plasma by Creatinine-based formula (MDRD) Glomerular 44 >60 Below low normal [facility] - filtration ml/min/ Good rate/1.73 sq M 1.73m2 [facility] predicted among Hospital non-blacks [Volume Rate/Area] in Serum or Plasma by Creatinine-based formula (MDRD) Calcium 8.7 8.5-10. [facility] - [Mass/volume] in mg/dL 1 Good Serum or Plasma [facility] Bilirubin.total 0.6 0.2-1.0 [facility] - [Mass/volume] in mg/dL Good Serum or Plasma [facility] Alanine 29 U/L 13-61 [facility] - aminotransferase Good [Enzymatic [facility] activity/volume] in Hospital Serum or Plasma Aspartate 124 U/L 15-37 Above high [facility] - aminotransferase normal Good [Enzymatic [facility] activity/volume] in Hospital Serum or Plasma by With P-5'-P Alkaline 112 U/L 45-117 [facility] - phosphatase Good [Enzymatic [facility] activity/volume] in Hospital Serum or Plasma Protein 7.3 6.4-8.2 [facility] - [Mass/volume] in g/dL Good Serum or Plasma [facility] Albumin 2.2 3.5-4.7 Below low normal [facility] - [Mass/volume] in g/dL Good Serum or Plasma by [facility] Bromocresol [facility] ([facility]) dye binding method Globulin 5.1 1.7-4.7 Above high [facility] - [Mass/volume] in g/dL normal Good Serum by [facility] Albumin/Globulin 0.4 0.7-2.8 Below low normal [facility] - [Mass Ratio] in Good Serum or Plasma [facility] ID Date Data Source [id number] 03/15/2020 10:31:03 PM EDT [facility] - [facility] Problem: Falls - Risk ofGoal: *Absence o f FallsDescription: Document Janelle Fall Risk and appropriate interventions in theflow sheet.Outcome: Progressing Towards GoalNote: Fall Risk Interventions:Mentation Interv entions: Adequate sleep, hydration, pain control, Bed/chair exitalarm, Door open when patient unattended, Increase mobility, More frequentrounding, Reorient patientM edication Interventions: Evaluate medications/consider consulting pharmacy Elimination Interventions: Bed/chair exit alarm, Call light in reach, Patient toca ll for help with toileting needsProblem: Patient Education: Go to Patient Educati on ActivityGoal: Patient/Family EducationOutcome: Progressing Towards Go alProblem: Pressure Injury - Risk ofGoal: *Prevention of pressure injuryDescriptio n: Document Ramírez Scale and appropriate interventions in theflowsheet.Outcome: P rogressing Towards GoalNote: Pressure Injury Interventions:Sensory Interventions: Ass ess changes in LOC, Assess need for specialty bed,Avoid rigorous massage over bony pro minences, Check visual cues for pain,Discuss PT/OT consult with provider, Float heels , Keep linens dry andwrinkle-free, Maintain/enhance activity level, Minimiz e linen layers, Monitorskin under medical devices, Pad between skin to skin, Press ure redistributionbed/mattress (bed type), Suspension boots, Turn and reposition ap prox. every twohours (pillows and wedges if needed), Use 30-degree side-lying positi onMoisture Interventions: Absorbent underpads, Apply protective barrier, cre amsand emollients, Assess need for specialty bed, Check for incontinence Q2 hoursand as needed, Contain wound drainage, Internal/External urinary devices,Mainta in skin hydration (lotion/cream), Minimize layers, Moisture barrierActivity Interve ntions: Assess need for specialty bed, Increase time out of bed,Pressure redist ribution bed/mattress(bed type), PT/OT evaluationMobility Interventions: Assess need for specialty bed, Float heels, HOB 30degrees or less, Pressure redistributi on bed/mattress (bed type), PT/OTevaluation, Suspension boots, Turn and reposition ap prox. every two hours(pillowand wedges)Nutrition Interventions: Document food/fluid/supplement intake, Discussnutritional consult with provider , Offer support with meals,snacks and hydrationFriction and Shear Intervention s: Apply protective barrier, creams andemollients, Foam dressings/transparen t film/skin sealants, HOB 30 degrees orless, Lift sheetProblem: Patient Education: Go to Patient Education ActivityGoal: Patient/Family EducationOutcome: Progres sing Towards GoalProblem: Non-Violent RestraintsGoal: *Removal from restraints as soon as assessed to be safeOutcome: Progressing Towards GoalGoal: *No harm/i njury to patient while restraints in useOutcome: Progressing Towards GoalGoal : *Patient's dignity will be maintainedOutcome: Progressing Towards G oalGoal: Non-violent Restaints:Standard InterventionsOutcome: Progressing Toward s GoalProblem: Airway Clearance - IneffectiveGoal: *PALLIATIVE CARE: Javier viation of secretions, cough and/or nasalcongestionOutcome: Progressing Towa rds GoalProblem: Altered nutritionGoal: *Optimize nutritional statusDescription: Pt meets >80% of estimated nutritional needs within 3-7 daysOutcome: Progressing Towa rds Goal Name Value Range Interpretation Code Description Data [facility](s) Supporting Document(s ) ID Date Data Source [id number] 03/15/2020 10:00:17 PM EDT [facility] Trach to vent, tolerating well. O2 sat 9 3-98%, will continue to monitor. Name Value Range Interpretation Code Description [facility] ) ID Date Data Source [id number] 03/15/2020 09:54:29 PM EDT [facility] Patient placed on full ventilatory suppo rt-- PRVC/450/14/40%/+5 due to increasedwork of breathing--o2sat Between 88-89%, RR in the 30s. RN aware. RT willcontinue to monitor patient for possible return to C PAP/PS. Name Value Range Interpretation Code Description Data [facility](s) Supporting Document(s ) ID Date Data Source [id number] 03/15/2020 07:54:50 PM EDT [facility] Bedside and Verbal shift change report ashley sonjanando to Cait Ramos RN (oncomingnurse) by Mirtha Balderas RN (offgoing nurse). Report included the following information SBAR, Kardex, EDSummary, Pro cedure Summary, Intake/Output, MAR, Accordion, Recent Results, MedRec Status , Cardiac Rhythm NSR and Alarm Parameters . Name Value Range Interpretation Code Description Data Annabelle rce(s) Supporting Document(s ) ID Date Data Source [id number] 03/15/2020 07:53:07 PM EDT [facility] Called to room by staff member, patient removed trach from neck. In no acutedistress. Saturation 90% Shiley trach # 6 reins erted without difficulty.Trach collar maintained.. No bleeding. Dr Gramajo ca lled and informed Patientto be restrained, order obtained from Dr Gramajo. No furthe r orders. Name Value Range Interpretation Code Description Data Annabelle rce(s) Supporting Document(s ) ID Date Data Source [id number] 03/15/2020 04:36:33 PM EDT [facility] Progress NotePatient: Carlyle Pate Sex: male DOA: 03/13/2022Date of : 1945 Age: 75 y.o. LOS: LOS: 2 daysSubjective:On trach collar this AM,m uch more alert , awake and interactive, c/o RUE painObjective:Visit VitalsBP 121/66 (BP 1 Location: Right arm, BP Patient Position: At rest)Pulse 88Temp 98.4 F ( 36.9 C)Resp 20Ht 5' 7" (1.702 m)Wt 83.5 kg (184 lb)SpO2 98%BMI 28.82 kg/m Physical Exam:Physical ExamConstitutional: Appearance: He is ill-appearing.HENT: Head: Normocephalic and atraumatic.Eyes: Extraocular Movements: Extraocular movem ents intact.Neck: Musculoskeletal: Neck supple.Cardiovascular: Rate and Rhythm : Normal rate and regular rhythm.Pulmonary: Effort: Pulmonary effort is normal. Br eath sounds: Normal breath sounds.Abdominal: General: Abdomen is flat. Palpations: Abdomen is soft.Skin: General: Skin is warm.Neurological: General: No focal d eficit present.+ PEG and trachRUE tenders and edematousIntake and Output:Current Shift : 03/15 0701 - 03/15 1900In: -Out: 265 [Urine:265]Last three shifts: 03/13 190 1 - 03/15 0700In: 4801.9 [I.V.:4621.9]Out: 1230 [Urine:1230]Lab/Data Reviewed:BMP:L ab ResultsComponent Value Date/Time NA 140 03/15/2020 03:50 AM K 3.9 03/15/2020 03: 50 AM CL 110 (H) 03/15/2020 03:50 AM CO2 21 03/15/2020 03:50 AM AGAP 14 03/15/2020 0 3:50 AM GLU 103 03/15/2020 03:50 AM BUN 46 (H) 03/15/2020 03:50 AM CREA 1.67 (H) 03:50 AM GFRAA 52 (L) 03/15/2020 03:50 AM GFRNA 43 (L) 03/15/2020 03:50 A MCMP:Lab ResultsComponent Value Date/Time NA 140 03/15/2020 03:50 AM K 3.9 03/15/2020 03:50 AM CL 110 (H) 03/15/2020 03:50 AM CO2 21 03/15/2020 03:50 AM AGAP 14 0 03:50 AM GLU 103 03/15/2020 03:50 AM BUN 46 (H) 03/15/2020 03:50 AM CREA 1.67 (H) 03:50 AM GFRAA 52 (L) 03/15/2020 03:50 AM GFRNA 43 (L) 03/15/2020 03:50 A M CA 7.8 (L) 03/15/2020 03:50 AM ALB 1.9 (L) 03/15/2020 03:50 AM TP 6.2 (L) 0 03:50 AM GLOB 4.3 03/15/2020 03:50 AM AGRAT 0.5 (L) 03/15/2020 03:50 AM SGOT 143 (H) 03/15/2020 03:50 AM ALT 23 03/15/2020 03:50 AMCBC:Lab ResultsComponent Value Date/Ti me WBC 39.8 (HH) 03/15/2020 03:50 AM HGB 8.5 (L) 03/15/2020 03:50 AM HCT 27.0 (L) 03:50 AM PLT 131 03/15/2020 03:50 AMAll Cardiac Markers in the last 24 nasima rs: No results found for: CPK, CK, CKMMB,CKMB, RCK3, CKMBT, CKNDX, CKND1, M YO, TROPT, TROIQ, HARDEEP, TROPT, TNIPOC, BNP,BNPPRecent Glucose Results:Lab Resul tsComponent Value Date/Time GLU 103 03/15/2020 03:50 AMABG: No results found for: PH, PHI, PCO2, PCO2I, PO2, PO2I, HCO3, HCO3I, FIO2,ISA7FFCYQC: No results found for: APTT, PTP, INR, INREXT, INREXTLiver Panel:Lab ResultsComponent Value Date/Ti me ALB 1.9 (L) 03/15/2020 03:50 AM TP 6.2 (L) 03/15/2020 03:50 AM GLOB 4.3 03/15/2020 03:50 AM AGRAT 0.5 (L) 03/15/2020 03:50 AM SGOT 143 (H) 03/15/2020 03:50 AM ALT 23 03/15/2020 03:50 AM AP 76 03/15/2020 03:50 AMPancreatic Markers: No results found f or: AMYLPOCT, AML, LIPPOCT, LPSEMedications ReviewedCurrent Facility-Administered Me dications: cefTRIAXone (ROCEPHIN) 2 g in 0.9% sodium chloride (MBP/ADV) 50 mL MBP , 2 g,IntraVENous, Q24H, Sandi Lares MD, Last Rate: 100 mL/hr at 03/15/20 1220, 2 gat 03/15/20 1220 hydrocortisone Sod Succ (PF) (SOLU-CORTEF) injection 50 mg, 50 m g,IntraVENous, Q8H, Sd Gramajo MD acetaminophen (TYLENOL) solution 650 mg, 650 mg, Per G Tube, Q4H PRN, Dusty Curiel MD, 650 mg at 03/15/20 1339 midodrine (PROAMATINE) tablet 10 mg, 10 mg, Oral, TID WITH MEALS, Beto Flores MD, 10 mg at 03/15/20 1148 levothyroxine (SYNTHROID) tablet 200 mcg, 200 mcg, Per G Tube, ACB , Beto Flores MD, 200 mcg at 03/15/20 0552 0.9% sodium chloride infusion, 50 mL/h r, IntraVENous, CONTINUOUS, dS Gramajo MD, Last Rate: 100 mL/hr at 03/15/20 122 1, 100 mL/hr at 03/15/20 1221 sodium chloride (NS) flush 5-10 mL, 5-10 mL, In traVENous, PRN, Chiquita Velazquez MD ondansetron (ZOFRAN) injection 4 mg, 4 mg, IntraVENo us, Q6H PRN, Chiquita Velazquez MD enoxaparin (LOVENOX) injection 40 mg, 40 mg, SubCUT Aneous, Q24H, Sd Gramajo MD, Stopped at 03/13/20 2100 pantoprazole (PROTONIX) 40 mg in 0.9% sodium chloride 10 mL injection, 40 mg,IntraVENous, DAILY, Sd Palmer MD, 40 mg at 03/15/20 0924Continued hospitalization is indicat ed due to septic shockAssessment/PlanActive Problems: Septic shock (HCC) (03/13/2020 ) 1)Septic shock due to Klebsiella bacteremia/UTI:Pressers are off this [facility] hange abx to IV rocephin per C&SAmikacin x1 ordered by IDBlood Cx 4/4 + for GNBRepea t blood cxCont IVFPulm followingCont Midodrine and SolucortefWBC worse today but clinically doing better, repeat in AMUrine strep AG and legionella ordered2 )Acute respiratory failure:Cont vent by trachPulm managing ventCont nebs3)Metabo lc encephalopathy:ImprovedDue to #1 and #2Full codeDVT ppx: Lovenox Name Value Range Interpretation Code Description Data Annabelle rce(s) Supporting Document(s ) ID Date Data Source [id number] 03/15/2020 04:04:00 PM EDT [facility] Pulmonary/CCM Progress NoteName: Carlyle Pate : 1945 [facility]IM PRESSION/[id number] male with a history of reported atrial fibrillation 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 Status post admission to [facility] on 01/31-> 03/12--> [facility] --> [facility] 03/13 secondary to lethargy, respiratory distress, fever andhypotension-Cultures at [facility] showing G NR 02/02 bottles; Klebsiella sepsis -ON Ceftriaxone-COVID (-) 03/13-CT of the hea d with old right parietal infarct and left subacuteperiventricular infarct-off pres sors. Wean hydrocortisone 50 mg q8-RUE edema asymmetric. Dopplers negative-Afib rate controlled. Patient on DVT treatment dosage of lovenox prior totransfer, will contin ue-On vent due to AMS, on 40% PEEP 5 PRVC. Tolerated CPAP/SP. Will change to trachc ollar-DVT and SUP prophy-Will update Flory [phone]:Awake, int eractive. 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 Authorizing ProvideramLODIPine (NORVASC) 10 mg tablet 10 mg by Per G Tu be route daily. Yes Other,Phys, MDescitalopram oxalate (LEXAPRO) 10 mg t ablet 10 mg by Per G Tube route daily.Yes Other, Phys, MDfamotidine (PEPCID) 20 mg tablet 20 mg by Per G Tube route two (2) times a day.Yes Other, Phys, MDgabapenti n (NEURONTIN) 100 mg capsule 100 mg by Per G Tube route three (3) timesdaily. Yes O ther, Phys, MDlevothyroxine (SYNTHROID) 200 mcg tablet Take 200 mcg by mouth Daily ( beforebreakfast). Yes Other, Phys, MDmelatonin 5 mg cap capsule Take 9 mg b y mouth nightly. Yes Other, Phys, MDsennosides 17.2 mg tab 17.2 mg by PEG Tube route daily. Yes Other, Phys, MDlosartan (COZAAR) 100 mg tablet 150 mg by Per G Tube route daily. Yes Other,Phys, MDdoxazosin (CARDURA) 1 mg tablet 1 mg b y Per G Tube route nightly. Yes Other,Phys, MDascorbic acid, vitamin C, (VITAMIN C) 500 mg tablet 500 mg by Per G Tube routedaily. Yes Other, Phys, MDchlorhe xidine (PERIDEX) 0.12 % solution 15 mL by Swish and Spit route daily.Yes Other, Ph ys, MDdocusate sodium (Colace) 100 mg capsule 200 mg by Per G Tube route daily. YesO ther, Phys, MDDOCUSATE SODIUM-BENZOCAINE RE Insert 5 mL into rectum. Every 2 days Yes Other,Phys, MDmultivitamin (ONE A DAY) tablet 1 Tab by Per G Tube route daily. Yes Other,Phys, MDnystatin (MYCOSTATIN) topical cream Apply to affected area th ree (3) timesdaily. Yes Other, Phys, MDpolyethylene glycol (MIRALAX) 17 gram packet Take 17 g by mouth daily. YesOther, Phys, MDSENNA 528 mg by PEG Tube route. Yes Other, Phys, MDergocalciferol (Vitamin D2) 1,250 mcg (50,000 unit) capsule Take 50,000 Units bymouth. Yes Other, Phys, MDALBUTEROL IN Take 2 Puffs by inhalatio n four (4) times daily. Yes Other, Phys,MDaspirin (ASPIRIN) 325 mg tablet 3 25 mg by PEG Tube route daily. Yes Other,Phys, MDatorvastatin (LIPITOR) 40 mg tablet 40 mg by Per G Tube route daily. YesOther, Phys, MDbisacodyL 5 mg tab Ins ert 10 mg into rectum nightly. Yes Other, Phys, MDenoxaparin (Lovenox) 40 mg/0.4 m L 40 mg by SubCUTAneous route daily. YesOther, Phys, MDpotassium bicarb-citri c acid (EFFER-K) 20 mEq tablet Take 20 mEq by mouth two(2) times a day. Yes Other, P hys, MDFLUTICASONE PROPIONATE IN 1 [place] by Nasal route two (2) times a day. YesOt her, Phys, MDALPRAZolam (XANAX) 0.25 mg tablet 0.25 mg by Per G Tube route every eight (8)hours as needed for Anxiety. Yes Other, Phys, MDtraMADoL (ULTRAM) 50 mg t ablet 50 mg by Per G Tube route every six (6) hours asneeded for Pain. Yes Other, Ph ys, MDacetaminophen (TYLENOL) 325 mg tablet 650 mg by Per G Tube route every four (4 )hours as needed for Pain. Yes Other, Elena Jurado Known AllergiesSocial HistoryTobacc o Use Smoking status: Former Smoker Smokeless tobacco: Never UsedSubstance U se Topics Alcohol use: Not CurrentlyHistory reviewed. No pertinent family history.Cu rrent Facility-Administered MedicationsMedication Dose Route Frequen cy cefTRIAXone (ROCEPHIN) 2 g in 0.9% sodium chloride (MBP/ADV) 50 mL MBP 2 gIntraVE Nous Q24H midodrine (PROAMATINE) tablet 10 mg 10 mg Oral TID WITH MEALS levothyro xine (SYNTHROID) tablet 200 mcg 200 mcg Per G Tube ACB hydrocortisone Sod Succ (PF) (SOLU-CORTEF) injection 100 mg 100 mgIntraVENous Q8H 0.9% sodium chloride infusion 100 mL/hr IntraVENous CONTINUOUS NOREPINephrine (LEVOPHED) 8 mg in 5% dex trose 250mL (32 mcg/mL) infusion0.5-30 mcg/min IntraVENous TITRATE enoxaparin (LOVENOX) injection 40 mg 40 mg SubCUTAneous Q24H pantoprazole (PROTONIX) 40 mg in 0 .9% sodium chloride 10 mL injection 40 mgIntraVENous DAILYReview of Systems:n/a Objective:Vital Signs:Visit VitalsBP 121/66 (BP 1 Location: Right arm, BP Patient Po sition: At rest)Pulse 80Temp 98.4 F (36.9 C)Resp 18Ht 5' 7" (1.702 m)Wt 83.5 kg (1 84 lb)SpO2 97%BMI 28.82 kg/m O2 Device: VentilatorTemp (24hrs), Av.1 F (36. 7 C), Min:97.4 F (36.3 C), Max:98.4 F (36.9 C)Physical Exam:General: Awake, i nteractiveHead: Normocephalic, without obvious abnormality, atraumatic.Eyes: C onjunctivae/corneas clear. PERRL, EOMs intact.Nose: Nares normal. Septum midlin e. Mucosa normal. No drainage or sinustenderness.Throat: Lips, mucosa, an d tongue normal. Teeth and gums normal. + trach. MinimalsecretionsNeck: Supple, sy mmetrical, trachea midline, no adenopathy, thyroid: noenlargment/tenderness/nodules , no carotid bruit and no JVD.Back: Symmetric, no curvature. ROM normal.Lung s: B/l rhonchiChest wall: No tenderness or deformity.Heart: Regular rate and rhyth m, S1, S2 normal, no murmur, click, rub or gallop.Abdomen: Soft, mildly distended , non- tender + PEG cleanExtremities: + edema. Right groin TLCPulses: Poorly pal pableSkin: Skin color, texture, turgor normal. No rashes or lesionsLymph nodes: Cervical, supraclavicular, and axillary nodes normal.Neurologic: Awake, interact iveData review:Recent Results (from the past 24 hour(s))CULTURE, RESPIRATORY/SPUTUM/B JASPREET Espinoza GRAM STAIN Collection Time: 03/14/20 11:00 PMResult Value Ref Range Special R equests: NO SPECIAL REQUESTS GRAM STAIN 10-25 WBC/lpf GRAM STAIN <10 EPI/lpf GRAM STAI N MODERATE GRAM NEGATIVE RODS Culture result: PENDINGCBC WITH AUTOMATED DIFF Collectio n Time: 03/15/20 3:50 AMResult Value Ref Range WBC 39.8 (HH) 4.8 - 10.6 K/uL RBC 2.89 (L) 4.70 - 6.00 M/uL HGB 8.5 (L) 14.0 - 18.0 g/dL HCT 27.0 (L) 42.0 - 52.0 % MCV 93.4 81.0 - 94.0 FL MCH 29.4 27.0 - 35.0 PG MCHC 31.5 30.7 - 37.3 g/dL RDW 17.7 (H) 11.5 - 14.0 % PLATELET 131 130 - 400 K/uL MPV 12.9 (H) 9.2 - 11.8 FL NRBC 0.0 0 PER 10 0 WBC ABSOLUTE NRBC 0.00 0.0 - 0.01 K/uL NEUTROPHILS 88 (H) 48.0 - 72.0 % BAND NE UTROPHILS 10 (H) 0 % LYMPHOCYTES 1 (L) 18.0 - 40.0 % MONOCYTES 0 (L) 2.0 - 12.0 % EOSI NOPHILS 0 0.0 - 7.0 % BASOPHILS 0 0.0 - 3.0 % METAMYELOCYTES 1 (H) 0 % IMMATURE GRANUL OCYTES 0 % ABS. NEUTROPHILS 39.4 (H) 2.3 - 7.6 K/UL ABS. LYMPHOCYTES 0.4 (L) 0.9 - 4.2 K/UL ABS. MONOCYTES 0.0 (L) 0.1 - 1.7 K/UL ABS. EOSINOPHILS 0.0 0.0 - 1.0 K/UL ABS. BASOPHILS 0.0 K/UL ABS. IMM. GRANS. 0.0 K/UL RBC COMMENTS 2+ANISOCYTOSIS PLATELE T ESTIMATE ADEQUATE DF MANUALMETABOLIC PANEL, COMPREHENSIVE Collection Time: 03/15/20 3:50 AMResult Value Ref Range Sodium 140 136 - 145 mmol/L Potassium 3.9 3.5 - 5.1 mmo l/L Chloride 110 (H) 98 - 107 mmol/L CO2 21 21 - 32 mmol/L Anion gap 14 10 - 20 mmol /L Glucose 103 74 - 106 mg/dL BUN 46 (H) 7 - 18 mg/dL Creatinine 1.67 (H) 0.70 - 1.30 mg/dL GFR est AA 52 (L) >60 ml/min/1.73m2 GFR est non-AA 43 (L) >60 ml/min/1.73m2 Calcium 7.8 (L) 8.5 - 10.1 mg/dL Bilirubin, total 0.7 0.2 - 1.0 mg/dL ALT (SGPT) 23 13 - 61 U/L AST (SGOT) 143 (H) 15 - 37 U/L Alk. phosphatase 76 45 - 117 U/L Protein , total 6.2 (L) 6.4 - 8.2 g/dL Albumin 1.9 (L) 3.5 - 4.7 g/dL Globulin 4.3 1.7 - 4. 7 g/dL A-G Ratio 0.5 (L) 0.7 - 2.8S.PNEUMO AG, UR/CSF Collection Time: 03/15/20 8: 40 AMResult Value Ref Range Strep pneumo Ag, urine Negative NEG Method IMMUNOCHROMATO GRAPHIC MEMBRANE ASSAYVANCOMYCIN, TROUGH Collection Time: 03/15/20 9:55 AMResult Value Ref Range Vancomycin,trough 15.0 10 - 20 ug/mLImaging:I have personally review ed the patient's radiographs and have reviewed thereports:CXR with Trach ? Sca nt infiltrate vs atelectasisCritical care time spent at the bedside excluding proc edures:35 min Name Value Range Interpretation Code Description Data Annabelle rce(s) Supporting Document(s ) ID Date Data Source [id number] 03/17/2020 08:41:55 AM EDT [facility] Name Value Range Interpretation Code Description Data Annabelle rce(s) Supporting Document(s ) Service [facility] GRAM NEGATIVE RODSAEROBIC BOTTLECALLED T O AND READ BACK BYRISSA RAMOS RN 0414 03/16/20 TRICIA OSBORNEE UMONIAE: Refer to previous culture(s) for susceptibility results ID Date Data Source [id number] 03/17/2020 08:39:54 AM EDT [facility] Name Value Range Interpretation Code Description Data Annabelle rce(s) Supporting Document(s ) Service [facility] GRAM NEGATIVE RODSAEROBIC AND ANAEROBIC BOTTLESCALLED TO AND READ BACK BYCORNELIUS RAMOS RN 0414 03/16/20 TRICIAOsiel KNOWLESBSIELLA PNEUMONIAE: Refer to previous culture(s) for susceptibility results ID Date Data Source [id number] 03/15/2020 10:40:55 AM EDT [facility] RECOMMENDATIONS:Suggest change EN to fib er-free EN: Osmolite 1.5@20mL/hr, increase to goal of60mL/hr with 30mL prostat bid. 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 Jevity 1.5@30mL/hr, goal of 60mL/hr (2160kcal, 92gm prot, 1094mL free H2O).Running at 30mL/hr (1080kcal, 46gm prot, 547mL free H2O)Allergies: Patient has no known allergies.Labs:CMP:Lab ResultsComponent Value Date/Time NA 140 03/15/2020 03:50 AM K 3.9 03/15/2020 03:50 AM CL 110 (H) 03/15 03:50 AM CO2 21 03/15/2020 03:50 AM AGAP 14 03/15/2020 03:50 AM GLU 103 03/01 03:50 AM BUN 46 (H) 03/15/2020 03:50 AM CREA 1.67 (H) 03/15/2020 03:50 AM GFR AA 52 (L) 03/15/2020 03:50 AM GFRNA 43 (L) 03/15/2020 03:50 AM CA 7.8 (L) 0 03:50 AM ALB 1.9 (L) 03/15/2020 03:50 AM TP 6.2 (L) 03/15/2020 03:50 AM GLOB 4.3 03:50 AM AGRAT 0.5 (L) 03/15/2020 03:50 AM SGOT 143 (H) 03/15/2020 03:50 A M ALT 23 03/15/2020 03:50 AMNutritionally Significant Meds: NS@100mL/hr, levophedA nthropometricsLast 3 Recorded Weights in this Encounter 03/13/20 1122 03/15/20 0611Wei ght: 113.4 kg (250 lb) 83.5 kg (184 lb)Height: 5' 7" (170.2 cm)Body mass ind ex is 28.82 kg/m .UBW: NA %UBW: NAIBW: 148 %IBW: 124Wt Readings from Last 3 Enco unters:03/15/20 83.5 kg (184 lb)Nutrition Focused Physical Assessment:DeferredOral /GI Issues:+PEGSkin:ramírez score 13Edema:Peripheral Vascular (WDL): Withi n Defined LimitsAppetite: N/A% Meal Intake:N/ANo data found.Fluid Intake:Int flavia/Output Summary (Last 24 hours) at 03/15/2020 1003Last data filed at 03/15/20 0630Gross per 24 hourIntake 2377.66 mlOutput 830 mlNet 1547.66 mlNutrition R x: 2100-2520kcal; 105-168g protein (1.2-2g/kg); 2100-2520ml fluid(1ml/kcal) [based on:25-30 Kcal/kg]% Estimated Energy Needs Met: 25-50%% Estimated Protein Nee ds Met: 25-50%% Fluid Needs Met: >100% (with IVFEducation Needs: [x] Not indica roby at this time [] Indicated at this timeNutrition DiagnosisIncreased protein needs related to critical illness as evidenced by respfailure, sepsisInterven tion:Suggest change EN to fiber-free EN: Osmolite 1.5@20mL/hr, increase to goal o f60mL/hr with 30mL prostat bid (2360kcal, 120gm prot, 293gm CHO, 71gm fat, 2592mgK +, 1097mL free H2O). Add 125mL free H2O Q 3hr once no IVF.Goals:Pt meets >80% of e stimated nutritional needs within 3-7 daysMonitoring and EvaluationFollow EN/P N RxMonitor labs: CrDischarge Planning:Pending Clinical Course [x] No cultural, taoism, or ethnic dietary needs identified [] Cultural, taoism and e thnic food preferences identified and addressed [] Participated in care plan, discharge planning/Interdisciplinary roundsFrmirtha Lawson RD Name Value Range Interpretation Code Description Data Annabelle rce(s) Supporting Document(s ) ID Date Data Source [id number] 03/15/2020 10:39:35 AM EDT [facility] ID Progress Note03/15/2020Subjective:Curr ently afebrile.No other changes.Objective:Vitals:Visit VitalsBP 122/64 (BP 1 Location: Right arm, BP Patient Position: At rest)Pulse 74Temp 98.4 F ( 36.9 C)Resp 17Ht 5' 7" (1.702 m)Wt 83.5 kg (184 lb)SpO2 99%BMI 28.82 kg/m Tmax: Te mp (24hrs), Av.2 F (36.8 C), Min:97.4 F (36.3 C), Max:99 F(37.2 C)Exam:Gene ral: Sedated and on the ventilator.Eyes: Sclera anicteric.Mouth/Throat: Tracheal tube in place.Neck: Supple.Lungs: Clear to auscultation bilaterally.Cardiovascular: Regular rate and rhythm.Abdomen: Soft, non-tender, bowel sounds normal, non-dis tended.Extremities: No cyanosis or edema.Labs:CBC:Recent Labs 03/14/200403/13/201040WBC 39.8* 27.3* 3.8*RBC 2.89* 2.93* 2.97*HGB 8.5* 8.5* 8 .6*HCT 27.0* 27.6* 28.1*PLT 131 164 205GRANS 88* 82* 87*LYMPH 1* 1* 0*EOS 0 0 0CMP:Re cent Labs 03/14/200403/13/201040GLU 103 89 82NA 140 140 138K 3.9 3.9 4.2CL 110* 109* 105CO2 21 22 27BUN 46* 41* 25*CREA 1.67* 1.78* 1.09CA 7.8* 7.3* 8.1*AGAP 14 12 11AP 76 61 87TP 6.2* 6.2* 6.6ALB 1.9* 2.1* 2.4*GLOB 4.3 4.1 4.2AGR AT 0.5* 0.5* 0.6*Antibiotic Monitoring: No results found for: VANCT, CPKUrinalysis: Lab ResultsComponent Value Date/Time Color YELLOW 03/13/2020 10:50 AM Appearance CL OUDY (A) 03/13/2020 10:50 AM Specific gravity 1.015 03/13/2020 10:50 AM pH (UA) 8.0 10:50 AM Protein Negative 03/13/2020 10:50 AM Glucose Negative 03/13/2020 10: 50 AM Ketone Negative 03/13/2020 10:50 AM Bilirubin Negative 03/13/2020 10:50 AM B lood LARGE (A) 03/13/2020 10:50 AM Urobilinogen 0.2 03/13/2020 10:50 AM Nit rites Negative 03/13/2020 10:50 AM Leukocyte Esterase TRACE (A) 03/13/2020 10:50 AM W BC 20-50 03/13/2020 10:50 AM RBC TOO NUMEROUS TO COUNT 03/13/2020 10:50 AM Epithelial cells 0-3 03/13/2020 10:50 AM Bacteria 4+ 03/13/2020 10:50 AM Crystals, urine NONE 03/13/2020 10:50 AMCultures:No results found for: SDESLab ResultsComponent Value Date /Time Culture result: (A) 03/13/2020 09:12 PM KLEBSIELLA PNEUMONIAE : Refer to previo us culture(s) for susceptibilityresults Culture result: (A) 03/13/2020 09:00 PM KLEBSIELLA PNEUMONIAE : Refer to previous culture(s) for susceptibilityresults Cul ture result: >100,000 COLONIES/mL KLEBSIELLA PNEUMONIAE (A) 03/13/2020 10:50AMRadiolo gy:Ct Head Wo ContResult Date: 03/13/2020CT HEAD WO CONT Clinical data: AMS Priors: None. Technique: Multiple axialimages were obtained from the skullbase to the verte x without administration ofintravenous contrast. Sagittal and coronal reconstr uction was performed.Utilizing desk interviewer algorithm the examination was performed to optimizeimaging quality by utilizing the lowest possible radiation dose. Findings : Thereis no evidence of intracranial hemorrhage, masses, acute cortical infar ction, ormidline shift. There are no extra-axial fluid collections. There is noevidenceof hydrocephalus. There is periventricular low-attenuationparticula rlywithin the left posterior frontoparietal lobe suggestive of smallvessel ischemic change probably chronic. There is an old right posteriorparietal encephalomalacia with small dystrophic calcification consistent with aremote infarction. Vas cular calcifications noted. Sulcal prominencesuggestive of brain parenchyma l volume loss. The bony calvarium shows noevidence of fracture or destructive jesus ny process.IMPRESSION: Left periventricular hypoattenuation suggestive of small vess elischemic change probably chronic. 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 Frandy vidence of hemorrhage. Should clinical concern persists then considerfollow-up MRI.Xr Chest PortResult Date: 03/14/2020CHEST one view HISTORY: Followup lung patholog y. Comparison is made to03/13/2020. Accounting for differences in technique ( ) there h as been nosignificant change of a lower lobe atelectasis. However there appears to be anincrease of an infiltrate in the right midlung or lower lung field. No otherint erval change is noted.IMPRESSION: Increase of right midlung or lower lung field field infiltrate.Xr Chest PortResult Date: 03/13/2020XR CHEST PORTABLE-SINGLE VIEW P RIOR: None HISTORY: Limited to that provided bythe emergency department at the time o f this examination; BIBA from [facility] for resfailure Pt has trach collar and vente d FINDINGS: Mild increased interstitialmarkings are identified bila terally consistent with infiltrates. There is mildhaziness of the costophrenic angle o n the left suggesting a small effusion. Noright effusion is present. A tracheost marina is present and in goodposition-unchanged. The cardiac silhouette is at the upper l imits of normal tomildly enlarged. There is a significant dorsal scoliotic curvature o f thethoracic spine.IMPRESSION: 1. Mild increased interstitial margins bilateral ly consistent withinfiltrates. 2. Small left effusion. 3. Upper limits of normal to m ild cardiacenlargement.Duplex Upper Ext Venous RightResult Date: 03/13/2020DUPLEX UPPER EXT VENOUS RIGHT Clinical indication: evaluate of RUE DVT . Edema.Priors: None . FINDINGS: The right subclavian vein up to the brachial vein iscompressible and maegan ws normal phasic flow without an intraluminal thrombus. Inaddition, the right commercial internship al jugular vein, cephalic vein and the basilic veinis also patent.IMPRESSION: N o evidence of deep vein thrombosis within the right upperextremity venous circulation . PS Electronically Signed: Juan Acevedo MD03/13/2020 5:10 PMLine/Insert Date: Peripheral IV:Assessment:1. 75 year old male with gram negative (Klebsiella) sepsis, probably secondaryto urinary tract infection.2. Respiratory failure.3. H/O Aphasia, CAD, Cancer of head and neck.Plan:1. Will switch to IV Ceftriaxone, based on cs findings.2. Discontinue IV Zosyn.3. Off of IV Vancomycin and Amikacin.4. Repeat ano ther set of blood cs.5. Monitor labs.6. Vent per pulmonary.Sandi Lares MD Name Value Range Interpretation Code Description Data Annabelle rce(s) Supporting Document(s ) ID Date Data Source [id number] 03/15/2020 10:37:45 AM EDT [facility] Name Value Range Interpretation Description Data Sup porting Code Source(s) Document(s ) Vancomycin 15.0 10-20 [facility] - Good [Mass/volume] ug/mL [employer] in Serum or Hospital Plasma --trough (NOTE)Trough levels of 15-20 ug/mL shoul d be targeted for patients withcoagulase negative Staphylococcus and MRSA pneumon ia, endocarditis,osteomyelitis, meningitis, and bacteremia; as well as patients notr esponding to lower levels. Trough levels of 10-15 ug/mL forinfections from other annabelle rces (e.g. urinary tract, cellulitis) areappropriate. All patients receiving c oncomitant nephrotoxic therapiesshould have their function closely monitored regardl ess of peak ortrough levels. ID Date Data Source [id number] 03/15/2020 11:19:08 AM EDT [facility] Name Value Range Interpretation Description Data Sup porting Code Source(s) Document(s ) Streptococcus NEG [facility] pneumoniae Ag [facility] [Presence] in Hospital Urine Presumptive negative suggests nocurrent or recent pneumococcal infection.Infection due to S.pneumonia cannot beruled out si nce the antigen presentin the sample may be below the detectionlimit of the test. Th is test is notintended as a substitute for gram stainand bacterial culture Service comment [facility] ID Date Data Source [id number] 03/15/2020 07:25:56 AM EDT [facility] Bedside shift change report given to Ashley banegas RN (oncoming nurse) by Sherri (offgoing nurse). Report included the fo llowing information SBAR,Kardex, ED Summary, Intake/Output, MAR, Recent Results and C ardiac Rhythm NSR. Name Value Range Interpretation Code Description Data Annabelle rce(s) Supporting Document(s ) ID Date Data Source [id number] 03/15/2020 06:54:40 AM EDT [facility] Name Value Range Interpretation Description Data Sup porting Code Source(s) Document(s ) Leukocytes 39.8 4.8-10.6 Above upper panic [facility] - Goo d [#/volume] in K/uL limits [facility] Blood by [facility] Automated count CALLED TO AND READ BACK CHANDNI MOSLEY RN [id number] 03/15/20,NATE MOLINA Erythrocytes [#/volume] 2.89 M/uL 4.70-6.00 Below low normal [facility] - Good in Blood by Automated [facility] Hospital count Hemoglobin 8.5 g/dL 14.0-18.0 Below low normal [facility] - Good [Mass/volume] in Blood [facility] Hematocrit [Volume 27.0 % 42.0-52.0 Below low normal [facility] - Good Fraction] of Blood by [facility] Automated count Erythrocyte mean 93.4 FL 81.0-94.0 [facility] - Good corpuscular volume [facility] ospital [Entitic volume] by Automated count Erythrocyte mean 29.4 PG 27.0-35.0 [facility] - Good corpuscular hemoglobin [facility] [Entitic mass] by Automated count Erythrocyte mean 31.5 g/dL 30.7-37.3 [facility] - Good corpuscular hemoglobin [facility] concentration [Mass/volume] by Automated count Erythrocyte 17.7 % 11.5-14.0 Above high [facility] - Good distribution width normal [facility] ospital [Ratio] by Automated count Platelets [#/volume] in 131 K/uL 130-400 [facility] - Good Blood by Automated [facility] ospital count Platelet mean volume 12.9 FL 9.2-11.8 Above high [facility] - Good [Entitic volume] in [facility] Blood by Automated count Nucleated 0.0 PER 100 0 [facility] - Good erythrocytes/100 WBC [facility] pital leukocytes [Ratio] in Blood Nucleated erythrocytes 0.00 K/uL 0.0-0.01 [facility] - Good [#/volume] in Blood [facility] Segmented 88 % 48.0-72.0 Above high [facility] - Good neutrophils/100 [facility] ital leukocytes in Blood Band form 10 % 0 Above high [facility] - Good neutrophils/100 [facility] ital leukocytes in Blood by Manual count Lymphocytes/100 1 % 18.0-40.0 Below low normal [facility] - Good leukocytes in [facility] Monocytes/100 0 % 2.0-12.0 Below low normal [facility] - G ood leukocytes in [facility] Eosinophils/100 0 % 0.0-7.0 [facility] - Good leukocytes in [facility] Basophils/100 0 % 0.0-3.0 [facility] - Good leukocytes in [facility] Metamyelocytes/100 1 % 0 Above high [facility] - Go od leukocytes in Blood by [facility] Manual count Immature 0 % [facility] granulocytes/100 [facility] pital leukocytes in Blood by Automated count Segmented neutrophils 39.4 K/UL 2.3-7.6 Above high [facility] - Good [#/volume] in Blood [facility] Lymphocytes [#/volume] 0.4 K/UL 0.9-4.2 Below low normal BSS - [facility] in [facility] Monocytes [#/volume] in 0.0 K/UL 0.1-1.7 Below low normal [facility] - [facility] Eosinophils [#/volume] 0.0 K/UL 0.0-1.0 [facility] - [facility] in [facility] Basophils [#/volume] in 0.0 K/UL [facility] Immature granulocytes 0.0 K/UL [facility] - Good [#/volume] in Blood by [facility] Automated count 2+ANISOCYTOSIS Platelet adequacy [Presence] in Blood by [facility] Light microscopy Differential cell count method - Blood [facility] ID Date Data Source [id number] 03/15/2020 05:30:00 AM EDT [facility] Name Value Range Interpretation Description Data Sup porting Code Source(s) Document(s ) Sodium 140 136-145 [facility] - [Moles/volume] in mmol/L [facility] Serum or [facility] Potassium 3.9 3.5-5.1 [facility] - [Moles/volume] in mmol/L [facility] Serum or [facility] Chloride 110 98-107 Above high [facility] - [Moles/volume] in mmol/L normal [facility] Carbon dioxide, 21 21-32 [facility] - total mmol/L Good [Moles/volume] in [facility] or [facility] Anion gap in Serum 14 10-20 [facility] - or Plasma mmol/L [facility] Glucose 103 74-106 [facility] - [Mass/volume] in mg/dL [facility] or [facility] Urea nitrogen 46 7-18 Above high [facility] - [Mass/volume] in mg/dL normal [facility] Serum or [facility] Creatinine 1.67 0.70-1. Above high [facility] - [Mass/volume] in mg/dL 30 normal Good Serum or Plasma [facility] Glomerular 52 >60 Below low normal [facility] - filtration ml/min/ Good rate/1.73 sq M 1.73m2 [facility] predicted among Hospital blacks [Volume Rate/Area] in Serum or Plasma by Creatinine-based formula (MDRD) Glomerular 43 >60 Below low normal [facility] - filtration ml/min/ Good rate/1.73 sq M 1.73m2 [facility] predicted among Hospital non-blacks [Volume Rate/Area] in Serum or Plasma by Creatinine-based formula (MDRD) Calcium 7.8 8.5-10. Below low normal [facility] - [Mass/volume] in mg/dL 1 Good Serum or Plasma [facility] Bilirubin.total 0.7 0.2-1.0 [facility] - [Mass/volume] in mg/dL Good Serum or Plasma [facility] Alanine 23 U/L 13-61 [facility] - aminotransferase Good [Enzymatic [facility] activity/volume] in Hospital Serum or Plasma Aspartate 143 U/L 15-37 Above high [facility] - aminotransferase normal Good [Enzymatic [facility] activity/volume] in Hospital Serum or Plasma by With P-5'-P Alkaline 76 U/L 45-117 [facility] - phosphatase Good [Enzymatic [facility]ism activity/volume] in Hospital Serum or Plasma Protein 6.2 6.4-8.2 Below low normal [facility] - [Mass/volume] in g/dL Good Serum or Plasma [facility] Albumin 1.9 3.5-4.7 Below low normal [facility] - [Mass/volume] in g/dL Good Serum or Plasma by [facility] Bromocresol purple [facility] (BCP) dye binding method Globulin 4.3 1.7-4.7 [facility] - [Mass/volume] in g/dL Good Serum by [facility] Albumin/Globulin 0.5 0.7-2.8 Below low normal [facility] - [Mass Ratio] in Good Serum or Plasma [facility] ID Date Data Source [id number] 03/17/2020 11:13:00 AM EDT [facility] - Good [facility] Name Value Range Interpretation Code Description Data Annabelle rce(s) Supporting Document(s ) Service [facility] - Good comment [facility] 10-25 WBC/lpf<10 EPI/lpfMODERATEGRAM NEG ATIVE RODSLIGHT GROWTHPSEUDOMONAS AERUGINOSA ID Date Data Source [id number] 03/17/2020 11:13:00 AM EDT [facility] Name Value Range Interpretation Code Description Data Supporting Source(s) Document(s ) Ceftazidime 8 ug/mL Susceptible. [facility] - [Susceptibility] Indicates for Good by Minimum microbiology [facility] inhibitory susceptibilities Hospital concentration only. (ADIS) Ciprofloxacin Susceptible. [facility] - [Susceptibility] Indicates for Good by Minimum microbiology [facility] inhibitory susceptibilities Hospital concentration only. (ADIS) Gentamicin Susceptible. [facility] - [Susceptibility] Indicates for Good by Minimum microbiology [facility] inhibitory susceptibilities Hospital concentration only. (ADIS) Tobramycin Susceptible. [facility] - [Susceptibility] Indicates for Good by Minimum microbiology [facility] inhibitory susceptibilities Hospital concentration only. (ADIS) Cefepime 4 ug/mL Susceptible. [facility] - [Susceptibility] Indicates for Good by Minimum microbiology [facility] inhibitory susceptibilities Hospital concentration only. (ADIS) ID Date Data Source [id number] 03/14/2020 06:37:52 PM EDT [facility] Progress NotePatient: Carlyle Pate Sex: male DOA: 03/13/2020Date of : 1945 Age: 75 y.o. LOS: LOS: 1 daySubjective:On trach collar this AM, R N at bedside, still lethargic, c/o R wrist pain,denies abd pain.Objective:Visit Vit alsBP 142/60Pulse 75Temp 98.3 F (36.8 C)Resp 21Ht 5' 7" (1.702 m)Wt 113.4 kg ( 250 lb)SpO2 97%BMI 39.16 kg/m Physical Exam:Physical ExamConstitutional: Appe arance: He is ill-appearing.HENT: Head: Normocephalic and atraumatic.Eyes: Ext raocular Movements: Extraocular movements intact.Neck: Musculoskeletal: Neck sup ple.Cardiovascular: Rate and Rhythm: Normal rate and regular rhythm.Pulmonary: Eff ort: Pulmonary effort is normal. Breath sounds: Normal breath sounds.Abdominal: General: Abdomen is flat. Palpations: Abdomen is soft.Skin: General: Skin is warm.Neurological: General: No focal deficit present.+ PEG and trachIntake an d Output:Current Shift: 03/14 701 - 03/140In: 696 [I.V.:696]Out: 280 [Urine:28 0]Last three shifts: 03/12 1901 - 03/14 0700In: 3002.7 [I.V.:3002.7]Out: 640 [Ur ine:640]Lab/Data Reviewed:BMP:Lab ResultsComponent Value Date/Time NA 140 03/14/2020 04:34 AM K 3.9 03/14/2020 04:34 AM CL 109 (H) 03/14/2020 04:34 AM CO2 22 04:34 AM AGAP 12 03/14/2020 04:34 AM GLU 89 03/14/2020 04:34 AM BUN 41 (H) 04:34 AM CREA 1.78 (H) 03/14/2020 04:34 AM GFRAA 48 (L) 03/14/2020 04:34 A M GFRNA 40 (L) 03/14/2020 04:34 AMCMP:Lab ResultsComponent Value Date/Time NA 140 03/14/2020 04:34 AM K 3.9 03/14/2020 04:34 AM CL 109 (H) 03/14/2020 04:34 AM CO2 22 04:34 AM AGAP 12 03/14/2020 04:34 AM GLU 89 03/14/2020 04:34 AM BUN 41 (H) 04:34 AM CREA 1.78 (H) 03/14/2020 04:34 AM GFRAA 48 (L) 03/14/2020 04:34 A M GFRNA 40 (L) 03/14/2020 04:34 AM CA 7.3 (L) 03/14/2020 04:34 AM ALB 2.1 (L) 03/14/20 04:34 AM TP 6.2 (L) 03/14/2020 04:34 AM GLOB 4.1 03/14/2020 04:34 AM AGRAT 0.5 ( L) 03/14/2020 04:34 AM SGOT 104 (H) 03/14/2020 04:34 AM ALT 18 03/14/2020 04 :34 AMCBC:Lab ResultsComponent Value Date/Time WBC 27.3 (H) 03/14/2020 04:34 AM HGB 8.5 (L) 03/14/2020 04:34 AM HCT 27.6 (L) 03/14/2020 04:34 AM PLT 164 03/14/20 20 04:34 AMAll Cardiac Markers in the last 24 hours: No results found for: CPK, CK, CK MMB,CKMB, RCK3, CKMBT, CKNDX, CKND1, GENO, TROPT, TROIQ, HARDEEP, TROPT, TNIPOC, BNP,B NPPRecent Glucose Results:Lab ResultsComponent Value Date/Time GLU 89 03/14/2020 04:34 AMABG: No results found for: PH, PHI, PCO2, PCO2I, PO2, PO2I, HCO3, H CO3I, FIO2,VBK1XLAFLC: No results found for: APTT, PTP, INR, INREXT, INREXTLiver Pane l:Lab ResultsComponent Value Date/Time ALB 2.1 (L) 03/14/2020 04:34 AM TP 6.2 (L) 0 03/14/2020 04:34 AM GLOB 4.1 03/14/2020 04:34 AM AGRAT 0.5 (L) 03/14/2020 04:34 AM SGO T 104 (H) 03/14/2020 04:34 AM ALT 18 03/14/2020 04:34 AM AP 61 03/14/2020 04: 34 AMPancreatic Markers: No results found for: AMYLPOCT, AML, LIPPOCT, LPSEMedicat ions ReviewedCurrent Facility-Administered Medications: acetaminophen (TYLENOL) s olution 650 mg, 650 mg, Per G Tube, Q4H PRN, Dusty Curiel MD, 650 mg at 03/14/20 031 0 midodrine (PROAMATINE) tablet 10 mg, 10 mg, Oral, TID WITH MEALS, Beto Flores MD, 10 mg at 03/14/20 1604 levothyroxine (SYNTHROID) tablet 200 mcg, 200 mcg, Per G Tube, ACB, Beto Flores MD, 200 mcg at 03/14/20 1043 hydrocortisone Sod Succ (PF) (SOLU-CORTEF) injection 100 mg, 100 mg,IntraVENous, Q8H, Beto Flores MD, 100 mg at 03/14/20 1516 ALPRAZolam (XANAX) tablet 0.25 mg, 0.25 mg, Oral, QHS PRN, Pati Childs MD, 0.25 mg at 03/14/20 1604 0.9% sodium chloride infusion, 100 mL/hr , IntraVENous, CONTINUOUS, Beto Flores MD, Last Rate: 100 mL/hr at 03/14/20 1026, 1 00 mL/hr at 03/14/20 1026 NOREPINephrine (LEVOPHED) 8 mg in 5% dextrose 250mL (32 mcg/mL) infusion,0.5-30 mcg/min, IntraVENous, TITRATE, Chiquita Velazquez MD, Last Rate: 15 mL/hr at03/14/20 1608, 8 mcg/min at 03/14/20 1608 sodium chlori de (NS) flush 5-10 mL, 5-10 mL, IntraVENous, PRN, Chiquita Velazquez MD ondansetron (ZOFR AN) injection 4 mg, 4 mg, IntraVENous, Q6H PRN, Chiquita Velazquez MD piperacillin-tazo bactam (ZOSYN) 3.375 g in 0.9% sodium chloride (MBP/ADV) 100mL MBP, 3.375 g, I ntraVENous, Q8H, Chiquita Velazquez MD, Last Rate: 25 mL/hr at03/14/20 1833, 3.375 g at 1833 enoxaparin (LOVENOX) injection 40 mg, 40 mg, SubCUTAneous, Q24H, Sd Gramajo MD, Stopped at 03/13/20 2100 pantoprazole (PROTONIX) 40 mg in 0.9% so dium chloride 10 mL injection, 40 mg,IntraVENous, DAILY, Sd Gramajo MD, 40 mg at 03/14/20 0859Continued hospitalization is indicated due to sept ic shockAssessment/PlanActive Problems: Septic shock (HCC) (03/13/2020) 1)Septic shock due to GNB:Cont pressers for MAP>65Cont IV vanc and zosynAmikacin x1 ordered by IDBlood Cx /4 + for GNBSource unclear at this point, ?plumonaryCont IVFPulm follo wingMidodrine and Solucortef addedRepeat blood Cx orderedRecheck WBC in AMUrine s trep AG and legionella ordered2)Acute respiratory failure:Cont vent by trachPu lm managing ventCont nebs3)Metabolc encephalopathy:Due to #1 and #2Full code DVT ppx: Lovenox Name Value Range Interpretation Code Description Data Annabelle rce(s) Supporting Document(s ) ID Date Data Source [id number] 03/14/2020 05:36:05 PM EDT [facility] Patient received with eyes Closed easil y arousable on ventilator , levophedstill in Progress for b/p . Shakes head for yes or no when simple QuestionIs asked. Blood tinged secretion persist with suction . No s/s of distressnoted. Name Value Range Interpretation Code Description Data [facility] rce(s) Supporting Document(s ) ID Date Data Source [id number] 03/14/2020 04:14:07 PM EDT [facility] Pt transferred to SICU today. JAZMYNE reviewe d chart. FYI completed to advise MD Galindo to to be completed 24 hours prior of dis charge back to [facility] and Dr. Nicholsonct information. JAZMYNE also requested PT/OT via RN/FYI for MD. JAZMYNE reached outto MD/RN directly. 03/13/2020- NEGATIVE Covid stat us. [facility], liaisonMaryse awareof status.CM will continue to follow. Name Value Range Interpretation Code Description Data [facility] rce(s) Supporting Document(s ) ID Date Data Source [id number] 03/14/2020 03:05:14 PM EDT [facility] History and PhysicalPatient: Carlyle pimentel Sex: male DOA: 03/13/2020Date of : 1945 Age: 75 y.o.HPI:Carlyle Pate is a 75 y.o. male who is transferred from [facility] for acu terespiratory distress. Patient is unresponsive, history is obtained from thechart. pt was [facility] to [facility] in December secondary to left basalganglia hemorrhage complicated by respiratory failure secondary to mucousp lugging and pneumonia. Patient underwent tracheostomy and PEG insertion onDecember 30. Patient subsequently transferred to [facility] on 01/31 for ventweaning. He was discharged to [facility] on 03/12 for aggressiverehabilitation. To day patient was found to be in respiratory distress andlethargy. O2 saturations we re reportedly in the high 80s. In the emergencyroom patient noted to be hypote nsive 63/50mmHg, HR 106, RR 24 at 99% on vent.Fever 104.7 Right femoral TLC was inserted. Patient was still hypotensive post3 L normal saline, Levophed was started. Past Medical History:Diagnosis Date Anxiety Aphasia Atrial fibrillation (HCC) with ventricular tachycardia Bilateral carotid artery disease (HCC) CAD (coronary nayeli ry disease) Chronic cystitis Dysphagia Head and neck cancer (HCC) Hemiparesis (HCC) right side HLD (hyperlipidemia) Hypertension Hypoxemia Infarction of l eft basal ganglia (HCC) intracranial hemorrhage Pneumonia Prostate cancer ( HCC) Respiratory failure (HCC) S/P percutaneous endoscopic gastrostomy (PEG ) tube placement (HCC) Thymus cancer (HCC) Thyroid cancer (HCC)Past Surgical Histor y:Procedure Laterality Date HX OTHER SURGICAL thymus gland removed HX TRACHE OSTOMY IR INSERT GASTROSTOMY TUBE PERCHistory reviewed. No pertinent famil y history.Social HistorySocioeconomic History Marital status: Spouse name: N ot on file Number of children: Not on file Years of education: Not on file Highest education level: Not on fileTobacco Use Smoking status: Former Smoker Smokeless tobacco: Never UsedSubstance and Sexual Activity Alcohol use: Not Currently Dr tarik use: NeverPrior to Admission medicationsMedication Sig Start Date End Date Taking? Authorizing ProvideramLODIPine (NORVASC) 10 mg tablet 10 mg by Per G Tu be route daily. Yes Other,Phys, MDescitalopram oxalate (LEXAPRO) 10 mg t ablet 10 mg by Per G Tube route daily.Yes Other, Phys, MDfamotidine (PEPCID) 20 mg tablet 20 mg by Per G Tube route two (2) times a day.Yes Other, Phys, MDgabapenti n (NEURONTIN) 100 mg capsule 100 mg by Per G Tube route three (3) timesdaily. Yes O ther, Phys, MDlevothyroxine (SYNTHROID) 200 mcg tablet Take 200 mcg by mouth Daily ( beforebreakfast). Yes Other, Phys, MDmelatonin 5 mg cap capsule Take 9 mg b y mouth nightly. Yes Other, Phys, MDsennosides 17.2 mg tab 17.2 mg by PEG Tube route daily. Yes Other, Phys, MDlosartan (COZAAR) 100 mg tablet 150 mg by Per G Tube route daily. Yes Other,Phys, MDdoxazosin (CARDURA) 1 mg tablet 1 mg b y Per G Tube route nightly. Yes Other,Phys, MDascorbic acid, vitamin C, (VITAMIN C) 500 mg tablet 500 mg by Per G Tube routedaily. Yes Other, Phys, MDchlorhe xidine (PERIDEX) 0.12 % solution 15 mL by Swish and Spit route daily.Yes Other, Ph ys, MDdocusate sodium (Colace) 100 mg capsule 200 mg by Per G Tube route daily. YesO ther, Phys, MDDOCUSATE SODIUM-BENZOCAINE RE Insert 5 mL into rectum. Every 2 days Yes Other,Phys, MDmultivitamin (ONE A DAY) tablet 1 Tab by Per G Tube route daily. Yes Other,Phys, MDnystatin (MYCOSTATIN) topical cream Apply to affected area th ree (3) timesdaily. Yes Other, Phys, MDpolyethylene glycol (MIRALAX) 17 gram packet Take 17 g by mouth daily. YesOther, Phys, MDSENNA 528 mg by PEG Tube route. Yes Other, Phys, MDergocalciferol (Vitamin D2) 1,250 mcg (50,000 unit) capsule Take 50,000 Units bymouth. Yes Other, Phys, MDALBUTEROL IN Take 2 Puffs by inhalatio n four (4) times daily. Yes Other, Phys,MDaspirin (ASPIRIN) 325 mg tablet 3 25 mg by PEG Tube route daily. Yes Other,Phys, MDatorvastatin (LIPITOR) 40 mg tablet 40 mg by Per G Tube route daily. YesOther, Phys, MDbisacodyL 5 mg tab Ins ert 10 mg into rectum nightly. Yes Other, Phys, MDenoxaparin (Lovenox) 40 mg/0.4 m L 40 mg by SubCUTAneous route daily. YesOther, Phys, MDpotassium bicarb-citri c acid (EFFER-K) 20 mEq tablet Take 20 mEq by mouth two(2) times a day. Yes Other, P MD parveenFLUTICASONE PROPIONATE IN 1 [place] by Nasal route two (2) times a day. YesOt her, Phys, MDALPRAZolam (XANAX) 0.25 mg tablet 0.25 mg by Per G Tube route every eight (8)hours as needed for Anxiety. Yes Other, Phys, MDtraMADoL (ULTRAM) 50 mg t ablet 50 mg by Per G Tube route every six (6) hours asneeded for Pain. Yes Other, Ph ys, MDacetaminophen (TYLENOL) 325 mg tablet 650 mg by Per G Tube route every four (4 )hours as needed for Pain. Yes Other, Elena Jurado Known AllergiesReview of Systems: [ x] Unable to obtain ROS due to [x]mental status change []sedated[]intubated []To manju of 12 systems reviewed as follows:Constitutional: negative fever, negative chills, negative weight lossEyes: negative diplopia or visual changes, neg ative eye painENT: negative coryza, negative sore throatRespiratory: negati ve cough, hemoptysis, dyspneaCards: negative for chest pain, palpitations, lower extr emity edemaGI: negative for nausea, vomiting, diarrhea, and abdominal painGe nitourinary: negative for frequency, dysuria and hematuriaIntegument: negative for r elizabeth and pruritusHematologic: negative for easy bruising and gum/nose bleedingMuscu loskel: negative for myalgias, arthralgias, back pain and muscle weaknessNeurologica l: negative for headaches, dizziness, vertigo, memory problems andgait problem sBehavl/Psych: negative for feelings of anxiety, depressionPertinent Positives i nclude :Physical Exam:VITALS:Visit VitalsBP 130/84Pulse 95Temp 100.1 F (37.8 C)Res p 27Ht 5' 7" (1.702 m)Wt 113.4 kg (250 lb)SpO2 100%BMI 39.16 kg/m Temp (24hrs), Av.2 F (39 C), Min:99.9 F (37.7 C), Max:104.7 F (40.4 C)PHYSICAL EXAM:Gener al: Unresponsive.Head: Normocephalic, without obvious abnormality, atraumatic. Eyes: Conjunctivae clear, anicteric sclerae. Pupils are equalNose: Nares n ormal. No drainage or sinus tenderness.Throat: Lips, mucosa, and tongue normal. No ThrushNeck: Supple, symmetrical, no adenopathy, thyroid: no n tender no carotid bruit and no JVD. Trach collar in place.Lungs: Clear to auscul tation bilaterally. No Wheezing or Rhonchi. No rales.Heart: Regular rate and rhyth m, no murmur, rub or gallop.Abdomen: Soft, non-tender. Not distended. Bowel sounds normal. No masses.+PEG in placed.Extremities: Extremities normal, atraumatic, No cyanosis. No edema. Noclubbing. Right femoral TLC.Skin: Texture, turgor normal. No rashes or lesions. Not JaundicedNeurologic: Unresponsive,L abs Reviewed:Xr Chest PortResult Date: 03/13/2020XR CHEST PORTABLE-SINGLE VIEW P RIOR: None HISTORY: Limited to that provided bythe emergency department at the time o f this examination; BIBA from [facility] for resfailure Pt has trach collar and vente d FINDINGS: Mild increased interstitialmarkings are identified bila terally consistent with infiltrates. There is mildhaziness of the costophrenic angle o n the left suggesting a small effusion. Noright effusion is present. A tracheost marina is present and in goodposition-unchanged. The cardiac silhouette is at the upper l imits of normal tomildly enlarged. There is a significant dorsal scoliotic curvature o f thethoracic spine.IMPRESSION: 1. Mild increased interstitial margins bilateral ly consistent withinfiltrates. 2. Small left effusion. 3. Upper limits of normal to m ild cardiacenlargement.BMP:Lab ResultsComponent Value Date/Time NA 138 03/13/2020 10:40 AM K 4.2 03/13/2020 10:40 AM CL 105 03/13/2020 10:40 AM CO2 27 2019 10:40 AM AGAP 11 03/13/2020 10:40 AM GLU 82 03/13/2020 10:40 AM BUN 25 (H) 2019 10:40 AM CREA 1.09 03/13/2020 10:40 AM GFRAA >60 03/13/2020 10:40 AM GFRNA >60 03/13/2020 10:40 AMCMP:Lab ResultsComponent Value Date/Time NA 138 03/13/2020 10:40 AM K 4.2 03/13/2020 10:40 AM CL 105 03/13/2020 10:40 AM CO2 27 03/13/2020 10 :40 AM AGAP 11 03/13/2020 10:40 AM GLU 82 03/13/2020 10:40 AM BUN 25 (H) 0 10:40 AM CREA 1.09 03/13/2020 10:40 AM GFRAA >60 03/13/2020 10:40 AM GFRNA >60 03/13/2020 10:40 AM CA 8.1 (L) 03/13/2020 10:40 AM ALB 2.4 (L) 03/13/2020 10:40 AM TP 6.6 03/13/2020 10:40 AM GLOB 4.2 03/13/2020 10:40 AM AGRAT 0.6 (L) 2019 10:40 AM SGOT 30 03/13/2020 10:40 AM ALT 11 (L) 03/13/2020 10:40 AMCBC:Lab Result sComponent Value Date/Time WBC 3.8 (L) 03/13/2020 10:40 AM HGB 8.6 (L) 03/13/20 20 10:40 AM HCT 28.1 (L) 03/13/2020 10:40 AM PLT 205 03/13/2020 10:40 AMAll Cardiac M arkers in the last 24 hours:Lab ResultsComponent Value Date/Time TROIQ 0 .07 (HH) 03/13/2020 10:40 AMABG:Lab ResultsComponent Value Date/Time FIO2 50 .0 03/13/2020 12:25 PMAssessment/PlanEdnaa Pate is a 75 y.o. male who is transfer red from [facility] for acuterespiratory distress.Active Problems: Septic shock (HCC) (03/13/2020)-ICU-CXR: mild left basilar atx vs infiltrate -(+) Ua-multiple negat idalmis test for Covid 19 in [facility], repeat one in ER.-septic shock bundle-s/p 3 L Nacl, c/ w ivf,-Levophed started in ER-f/u ike-aldlwsu-r/u lactic acid-IV vancomyci n and zosyn-ID consultAcute hypoxic respiratory failure-c/w ventilation via trach-Vent management per pulmonaryAMS: likely metabolic encephalopathyCT head: Left periventricular hypoattenuation suggestive of small vesselischemic gramajo e probably chronic. 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 Noevidence of hemo rrhage.RUE edema:Doppler to rule out DVT.History of p afib: rate controlled-o n Lovenox 40mg dvt ppx doseAnemia:likely chronic ds-f/u H/hDVT Prophylaxis: on lo venox sc, SCD.GI ppx: pantonixPEG tube: hold feeding for nowFoley in place: monitor i n and outputTLC right femoralCode Status: Full CodeDisposition: anticipate d/c Pierce ab once clinically improvedPrimary Care Provider: Edison Prajapati MD @ [facility]@Care Plan discussed with: Patient/Family and Nurse in detail. Expressedunderstand ing and is in agreement.Lifestyle modifications including diet, exercise, medical compliance andimportance of outpatient medical followup was discussed. Shakilameleciochristen Velazquez, [facility] [address]:34 PM Name Value Range Interpretation Code Description Data Annabelle rce(s) Supporting Document(s ) ID Date Data Source [id number] 03/14/2020 03:01:29 PM EDT [facility] TRANSFER - OUT REPORT:Verbal report give n to ebony(name) [facility] ression of careReport consisted of patient's Situation, Background, Assessment andRec ommendajeana(SBAR).Information from the following report(s) SBAR, Kardex, Intake /Output and MAR wasreviewed with the receiving nurse.Lines:Triple Lumen 03/13 Right Femoral (Active)Central Line Being Utilized Yes 03/13/2020 8:00 PMCriteria for Appropriate Use Hemodynamically unstable, requiring monitoringlines, vasopressors, or volume resuscitation 03/13/2020 8:00 PMSite Assessment Clean, dry, & inta ct 03/13/2020 8:00 PMInfiltration Assessment 0 03/13/2020 8:00 PMAffected Extremity/E xtremities Color distal to insertion site pink (orappropriate for race);Pulses pal pable;Range of motion performed 03/13/2020 8:00PMDate of Last Dressing Change 03/1303/13/2020 8:00 PMDressing Status Clean, dry, & intact 03/13/2020 8:00 PMDressing Type Disk with Chlorhexadine gluconate (CHG);Transparent 03/13/20208:00 PMAction Taken Open ports on tubing capped 03/13/2020 8:00 PMProximal Hub Color/Line Status Wh ite;Flushed;Patent;Infusing 03/13/2020 8:00 PMPositive Blood Return (Medial Site) Ye s 03/13/2020 8:00 PMMedial Hub Color/Line Status Blue;Flushed;Patent;Infusing 03/13 8:00 PMPositive Blood Return (Lateral Site) Yes 03/13/2020 8:00 PMDistal Hub C olor/Line Status Brown;Flushed;Patent;Infusing 03/13/2020 8:00 PMPositive Blood Return (Site #3) Yes 03/13/2020 8:00 PMAlcohol Cap Used Yes 8:00 PMPeripheral IV 03/13/20 Left Antecubital (Active)Site Assessment Berta n, dry, & intact 03/13/2020 8:00 PMPhlebitis Assessment 0 03/13/2020 8:00 PMInfiltrat ion Assessment 0 03/13/2020 8:00 PMDressing Status Clean, dry, & intact 03/13/2020 8 :00 PMDressing Type Transparent 03/13/2020 8:00 PMHub Color/Line Status Spicer 020 8:00 PMAlcohol Cap Used Yes 03/13/2020 8:00 PMOpportunity for questions and cla rification was provided.Patient transported with: MonitorO2 @ 50 litersRegistered Nu rseTech Name Value Range Interpretation Code Description Data Annabelle rce(s) Supporting Document(s ) ID Date Data Source [id number] 03/14/2020 10:37:28 AM EDT [facility] Infectious Disease ConsultToday's Date: 03/14/2020Admit Date: 03/13/2020Subjective:Date of Consultation: March 14, 2020Referring Physician: Dr. Fermin is a 75 y.o. male who is being seen for sepsis. This is a [id number]-[id number] who is had a past medical history consistent with anxiety, aphasia,CAD, hypertension, pneumonia, respiratory failure and status post trac heostomyand PEG placement.Presented from [facility] after he was noted wi th respiratory distress.Of note he was [facility] with Basal gangliahemorrhage and respiratory failure with mucus plugging. Subsequently a tracheostomy and PEG was placed on December and thereafter he wastra nsferred to [facility] and subsequently to [facility].Or yesterday emmy roldan presented to the hospital after he was noted to be inrespiratory distress and q uite lethargic.His blood pressure was noted to be 63/50 with tachycardia and tachypn ea.Additionally was noted to have a fever of 104.7.Admitted to CCU.Patient Active Pro blem ListDiagnosis Code Septic shock (HCC) A41.9, R65.21Past Medical History:Diagno sis Date Anxiety Aphasia Atrial fibrillation (HCC) with ventricular tach ycardia Bilateral carotid artery disease (HCC) CAD (coronary artery disease) Ch ronic cystitis Dysphagia Head and neck cancer (HCC) Hemiparesis (HCC) right si de HLD (hyperlipidemia) Hypertension Hypoxemia Infarction of left basal gang lisa (HCC) intracranial hemorrhage Pneumonia Prostate cancer (HCC) Respiratory failu re (HCC) S/P percutaneous endoscopic gastrostomy (PEG) tube placement (HCC) Thymus cancer (HCC) Thyroid cancer (HCC)History reviewed. No pertinent fami ly history.Social HistoryTobacco Use Smoking status: Former Smoker Smokeless tobacco : Never UsedSubstance Use Topics Alcohol use: Not CurrentlyPast Surgical History: Procedure Laterality Date HX OTHER SURGICAL thymus gland removed HX TRACHEOSTOMY I R INSERT GASTROSTOMY TUBE PERCPrior to Admission medicationsMedication Sig Star t Date End Date Taking? Authorizing ProvideramLODIPine (NORVASC) 10 mg table t 10 mg by Per G Tube route daily. Yes Other,Phys, MDescitalopram oxalate (CHACE PRO) 10 mg tablet 10 mg by Per G Tube route daily.Yes Other, Phys, MDfamotidine (PEP ARTEMIO) 20 mg tablet 20 mg by Per G Tube route two (2) times a day.Yes Other, Phys, MDg abapentin (NEURONTIN) 100 mg capsule 100 mg by Per G Tube route three (3) timesdaily . Yes Other, Phys, MDlevothyroxine (SYNTHROID) 200 mcg tablet Take 200 mcg by mouth Daily (beforebreakfast). Yes Other, Phys, MDmelatonin 5 mg cap capsul e Take 9 mg by mouth nightly. Yes Other, Phys, MDsennosides 17.2 mg tab 17.2 mg b y PEG Tube route daily. Yes Other, Phys, MDlosartan (COZAAR) 100 mg tablet 150 mg by Per G Tube route daily. Yes Other,Phys, MDdoxazosin (CARDURA) 1 mg tablet 1 mg b y Per G Tube route nightly. Yes Other,Phys, MDascorbic acid, vitamin C, (VITAMIN C) 500 mg tablet 500 mg by Per G Tube routedaily. Yes Other, Phys, MDchlorhe xidine (PERIDEX) 0.12 % solution 15 mL by Swish and Spit route daily.Yes Other, Ph ys, MDdocusate sodium (Colace) 100 mg capsule 200 mg by Per G Tube route daily. YesO ther, Phys, MDDOCUSATE SODIUM-BENZOCAINE RE Insert 5 mL into rectum. Every 2 days Yes Other,Phys, MDmultivitamin (ONE A DAY) tablet 1 Tab by Per G Tube route daily. Yes Other,Phys, MDnystatin (MYCOSTATIN) topical cream Apply to affected area th ree (3) timesdaily. Yes Other, Phys, MDpolyethylene glycol (MIRALAX) 17 gram packet Take 17 g by mouth daily. YesOther, Phys, MDSENNA 528 mg by PEG Tube route. Yes Other, Phys, MDergocalciferol (Vitamin D2) 1,250 mcg (50,000 unit) capsule Take 50,000 Units bymouth. Yes Other, Phys, MDALBUTEROL IN Take 2 Puffs by inhalatio n four (4) times daily. Yes Other, Phys,MDaspirin (ASPIRIN) 325 mg tablet 3 25 mg by PEG Tube route daily. Yes Other,Phys, MDatorvastatin (LIPITOR) 40 mg tablet 40 mg by Per G Tube route daily. YesOther, Phys, MDbisacodyL 5 mg tab Ins ert 10 mg into rectum nightly. Yes Other, Phys, MDenoxaparin (Lovenox) 40 mg/0.4 m L 40 mg by SubCUTAneous route daily. YesOther, Phys, MDpotassium bicarb-citri c acid (EFFER-K) 20 mEq tablet Take 20 mEq by mouth two(2) times a day. Yes Other, P hys, MDFLUTICASONE PROPIONATE IN 1 [place] by Nasal route two (2) times a day. YesOt her, Phys, MDALPRAZolam (XANAX) 0.25 mg tablet 0.25 mg by Per G Tube route every eight (8)hours as needed for Anxiety. Yes Other, Phys, MDtraMADoL (ULTRAM) 50 mg t ablet 50 mg by Per G Tube route every six (6) hours asneeded for Pain. Yes Other, Ph ys, MDacetaminophen (TYLENOL) 325 mg tablet 650 mg by Per G Tube route every four (4 )hours as needed for Pain. Yes Other, Phys, MDTravel history:No Known AllergiesRevie w of Systems: Review of systems not obtained due to patient factors.Objective:Visit V italsBP 132/72 (BP 1 Location: Left arm)Pulse 83Temp 98.6 F (37 C)Resp 20Ht 5' 7" (1 .702 m)Wt 113.4 kg (250 lb)SpO2 100%BMI 39.16 kg/m Temp (24hrs), Av.8 F (38.2 C ), Min:98.1 F (36.7 C), Max:104.7 F (40.4 C)Lines: Peripheral IV:Physical Exam:Ge neral: Sedated and on the ventilator.Eyes: Sclera anicteric.Mouth/Throat: Tracheal tube in place.Neck: Supple.Lungs: Clear to auscultation bilaterally.Cardiovascular: Regular rate and rhythm.Abdomen: Soft, non-tender, bowel sounds normal, non-dis tended.Extremities: No cyanosis or edema.Data Review:CBC:Recent Labs 40WBC 27.3* 3.8*RBC 2.93* 2.97*HGB 8.5* 8.6*HCT 27.6* 28.1*PLT 164 205GRANS 82* 87*LYMPH 1* 0*EOS 0 0CMP:Recent Labs 03/13/201040GLU 89 82NA 140 138K 3.9 4.2CL 109* 105CO2 22 27BUN 41* 25*CREA 1.78* 1.09CA 7.3* 8.1*AGAP 12 11 AP 61 87TP 6.2* 6.6ALB 2.1* 2.4*GLOB 4.1 4.2AGRAT 0.5* 0.6*Antibiotic Monitoring: No results found for: VANCT, CPKUrinalysis:Lab ResultsComponent Value Date/Time Color YELLOW 03/13/2020 10:50 AM Appearance CLOUDY (A) 03/13/2020 10:50 A M Specific gravity 1.015 03/13/2020 10:50 AM pH (UA) 8.0 03/13/2020 10:50 AM Protein Negative 03/13/2020 10:50 AM Glucose Negative 03/13/2020 10:50 AM Ketone Negative 03/01 10:50 AM Bilirubin Negative 03/13/2020 10:50 AM Blood LARGE (A) 03/13/2020 10:5 0 AM Urobilinogen 0.2 03/13/2020 10:50 AM Nitrites Negative 03/13/2020 10:50 AM Le ukocyte Esterase TRACE (A) 03/13/2020 10:50 AM WBC 20-50 03/13/2020 10:50 AM RBC TOO NUMEROUS TO COUNT 03/13/2020 10:50 AM Epithelial cells 0-3 03/13/2020 10:50 AM Bacteria 4+ 03/13/2020 10:50 AM Crystals, urine NONE 03/13/2020 10:50 AMMicrobiolo gy:All Micro Results Procedure Component Value Units Date/Time Blood Culture [[id number]] (Abnormal) Collected: 03/13/20 1040 Order Status: Completed Specimen: Bloo d Updated: 03/14/20 0854 Special Requests: NO SPECIAL REQUESTS GRAM STAIN GRAM NE GATIVE RODS ON ANAEROBIC BOTTLE CALLED TO AND READ BACK BY LIGIA BARRONRN,CCU ,03/13/20 @ 2020 S KVNG AEROBIC BOTTLE GRAM NEGATIVE RODS Culture result: GRA M NEGATIVE RODS IDENTIFICATION AND SUSCEPTIBILITY TO FOLLOW Blood Culture [ [id number]] (Abnormal) Collected: 03/13/20 1020 Order Status: Completed Specimen: Blood Updated: 03/14/20 0852 Special Requests: NO SPECIAL REQUESTS GRAM STAI N GRAM NEGATIVE RODS on AEROBIC AND ANAEROBIC BOTTLES CALLED TO AND READ BA CK BY LIGIA BARRON,RN,CCU,03/13/20 @ 2020 S KVNG Culture result: GRAM NEGATIV E RODS IDENTIFICATION AND SUSCEPTIBILITY TO FOLLOW CULTURE, BLOOD [[id number]] [facility] roby: 03/13/20 2100 Order Status: Completed Specimen: Blood Updated: 03/14/20 0553 Special Requests: NO SPECIAL REQUESTS Culture result: NO GROWTH AFTER 8 HOURS CULTURE, BLOOD [[id number]] Collected: 03/13/202111 Order Status: Completed S pecimen: Blood Updated: 03/14/20 0553 Special Requests: NO SPECIAL REQUESTS C ulture result: NO GROWTH AFTER 8 HOURS PRE-SURGICAL COVID PCR [[id number]] Colle cted: 03/13/20 1315 Order Status: Completed Specimen: Miscellaneous sample Updated: 03/13/202035 SARS-CoV-2 Not detected Comment: Testing Performed by:[id number] [address] [place], [place] [address]ACR REPORT FROM REFERENCE LAB CULTURE, RESPIRATORY/ SPUTUM/BRONCH W GRAM STAIN [[id number]] Order Status: Sent Specimen: Sputum from Tra nstracheal Aspirate COVID-19, [employer] [[id number]] Collected: 03/13/20 1315 Order Status: Canceled CULTURE, URINE [[id number]] Collected: 03/13/20 1050 Order Status: Completed Specimen: Cath Urine Updated: 03/13/20 1223Imaging:Ct Head Wo ContResu lt Date: 03/13/2020CT HEAD WO CONT Clinical data: AMS Priors: None. Technique: Multi ple axialimages were obtained from the skullbase to the vertex without administ ration ofintravenous contrast. Sagittal and coronal reconstruction was performed.Uti lizing desk interviewer algorithm the examination was performed to optimizeimaging quality by utilizing the lowest possible radiation dose. Findings: Thereis no evidence of i ntracranial hemorrhage, masses, acute cortical infarction, ormidline shift. Th ere are no extra-axial fluid collections. There is noevidenceof hydrocephalus. Th ere is periventricular low-attenuationparticularlywithin the le ft posterior frontoparietal lobe suggestive of smallvessel ischemic change probably chronic. There is an old right posteriorparietal encephalomalacia with small dystrophic calcification consistent with aremote infarction. Vascular calci fications noted. Sulcal prominencesuggestive of brain parenchyma l volume loss. The bony calvarium shows noevidence of fracture or destructive jesus ny process.IMPRESSION: Left periventricular hypoattenuation suggestive of small vess elischemic change probably chronic. 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 Frandy vidence of hemorrhage. Should clinical concern persists then considerfollow-up MRI.Xr Chest PortResult Date: 03/14/2020CHEST one view HISTORY: Followup lung patholog y. Comparison is made to03/13/2020. Accounting for differences in technique ( ) there h as been nosignificant change of a lower lobe atelectasis. However there appears to be anincrease of an infiltrate in the right midlung or lower lung field. No otherint erval change is noted.IMPRESSION: Increase of right midlung or lower lung field field infiltrate.Xr Chest PortResult Date: 03/13/2020XR CHEST PORTABLE-SINGLE VIEW P RIOR: None HISTORY: Limited to that provided bythe emergency department at the time o f this examination; BIBA from [facility] for resfailure Pt has trach collar and vente d FINDINGS: Mild increased interstitialmarkings are identified bila terally consistent with infiltrates. There is mildhaziness of the costophrenic angle o n the left suggesting a small effusion. Noright effusion is present. A tracheost marina is present and in goodposition-unchanged. The cardiac silhouette is at the upper l imits of normal tomildly enlarged. There is a significant dorsal scoliotic curvature o f thethoracic spine.IMPRESSION: 1. Mild increased interstitial margins bilateral ly consistent withinfiltrates. 2. Small left effusion. 3. Upper limits of normal to m ild cardiacenlargement.Duplex Upper Ext Venous RightResult Date: 03/13/2020DUPLEX UPPER EXT VENOUS RIGHT Clinical indication: evaluate of RUE DVT . Edema.Priors: None . FINDINGS: The right subclavian vein up to the brachial vein iscompressible and maegan ws normal phasic flow without an intraluminal thrombus. Inaddition, the right commercial internship al jugular vein, cephalic vein and the basilic veinis also patent.IMPRESSION: N o evidence of deep vein thrombosis within the right upperextremity venous circulation . PS Electronically Signed: Juan Acevedo MD03/13/2020 5:10 PMImpression: 75-year- old gentleman who was noted to have gram-negative sepsis withrespiratory dave lure, with possible healthcare associated pneumonia, suspectgram-negative organism s. Probable urinary tract infection. History of anxiety, aphasia, A. fib, CAD, cancer of the head and neck andbasal ganglial hemorrhage.Plan: Currently on IV vancom ycin and Zosyn. We will add 1 dose of IV amikacin. Await for the sensitivities o f gram-negative rods in the blood. Repeat another set of blood culture sent yester day. Aspiration precautions. Vent management per critical care. 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 Status post admission to [facility] on 01/31-> 03/12--> [facility] --> [facility] 03/13 secondary to lethargy, respiratory distress, fever andhypotension-Cultures at [facility] showing G NR 02/02 bottles, ID to follow-Patient has reportedly been COVID negative on multip le occasions and remainsnegative. If off pressors, will transfer to floor, but if remains on pressorswill need transfer to clean ICU-CT of the head with old right parietal infarct and left subacuteperiventricular infarct-Septic s hock with GNR, wean pressors-Start midodrine, empiric hydrocortisone 100mg IVSS q8h-CX R relatively clear with mild left basilar atx vs infiltrate, ?source of Gramnegative s epsis-RUE edema asymmetric. Dopplers negative-Afib rate controlled. Patient o n DVT treatment dosage of lovenox prior totransfer, will continue-On vent due to AMS, on 40% PEEP 5 PRVC-DVT and SUP prophy-Will update Flory [phone]:Remains on Levophed, but decreasing pressor requirements. 02/02 GNR in bloodcultures at [facility] Medical History:Diagnosis Date Anxiety Aphasia Atrial fibrillation (HCC) with ventricular tachycardia Bilateral carotid artery di sease (HCC) CAD (coronary artery disease) Chronic cystitis Dysphagia Head and ne ck cancer (HCC) Hemiparesis (HCC) right side HLD (hyperlipidemia) Hypertension Hyp oxemia Infarction of left basal ganglia (HCC) intracranial hemorrhage Pneumonia Prostate cancer (HCC) Respiratory failure (HCC) S/P percutaneous endoscopic gastr ostomy (PEG) tube placement (HCC) Thymus cancer (HCC) Thyroid cancer (HCC)Past S urgical History:Procedure Laterality Date HX OTHER SURGICAL thymus gland removed HX TRACHEOSTOMY IR INSERT GASTROSTOMY TUBE PERCPrior to Admission medicationsMedica tion Sig Start Date End Date Taking? Authorizing ProvideramLODIPine (NORVASC) 10 mg tablet 10 mg by Per G Tube route daily. Yes Other,MD Adrienescitalopram oxalate (LEXAPRO) 10 mg tablet 10 mg by Per G Tube route daily.Yes Other, MD Adrienfamo tidine (PEPCID) 20 mg tablet 20 mg by Per G Tube route two (2) times a day.Yes Other , Phys MDgabapentin (NEURONTIN) 100 mg capsule 100 mg by Per G Tube route three (3) timesdaily. Yes Other, Phys MDlevothyroxine (SYNTHROID) 200 mcg tabl et Take 200 mcg by mouth Daily (beforebreakfast). Yes Other, Phys, MD melatonin 5 mg cap capsule Take 9 mg by mouth nightly. Yes Other, Phys, MDsennosides 17.2 mg tab 17.2 mg by PEG Tube route daily. Yes Other, Phys, MDlosartan (COZAAR) 1 00 mg tablet 150 mg by Per G Tube route daily. Yes Other,Phys, MDdoxazosin (CA RDURA) 1 mg tablet 1 mg by Per G Tube route nightly. Yes Other,Phys, MDascorbic ac id, vitamin C, (VITAMIN C) 500 mg tablet 500 mg by Per G Tube routedaily. Yes Other , Phys, MDchlorhexidine (PERIDEX) 0.12 % solution 15 mL by Swish and Spit route d aily.Yes Other, Phys, MDdocusate sodium (Colace) 100 mg capsule 200 mg by Per G Tube route daily. YesOther, Phys, MDDOCUSATE SODIUM-BENZOCAINE RE Insert 5 mL into rectum. Every 2 days Yes Other,Phys, MDmultivitamin (ONE A DAY) t ablet 1 Tab by Per G Tube route daily. Yes Other,Phys, MDnystatin (MYCOSTATIN) topi rod cream Apply to affected area three (3) timesdaily. Yes Other, Phys, MDpolyeth ylene glycol (MIRALAX) 17 gram packet Take 17 g by mouth daily. YesOther, Phys, MDSE NNA 528 mg by PEG Tube route. Yes Other, Phys, MDergocalciferol (Vitamin D2) 1,25 0 mcg (50,000 unit) capsule Take 50,000 Units bymouth. Yes Other, Phys, MDALBUTEROL IN Take 2 Puffs by inhalation four (4) times daily. Yes Other, Phys,MDaspirin (ASPI RIN) 325 mg tablet 325 mg by PEG Tube route daily. Yes Other,Phys, MDatorvastatin (LIPITOR) 40 mg tablet 40 mg by Per G Tube route daily. YesOther, Phys, MDbisacod yL 5 mg tab Insert 10 mg into rectum nightly. Yes Other, Phys, MDenoxaparin (Lovenox ) 40 mg/0.4 mL 40 mg by SubCUTAneous route daily. YesOther, Phys, MDpotassium bic arb-citric acid (EFFER-K) 20 mEq tablet Take 20 mEq by mouth two(2) times a day. Ye s Other, Phys, MDFLUTICASONE PROPIONATE IN 1 [place] by Nasal route two (2) times a day . YesOther, Phys, MDALPRAZolam (XANAX) 0.25 mg tablet 0.25 mg by Per G Tube route ev malachi eight (8)hours as needed for Anxiety. Yes Other, Phys, MDtraMADoL (ULTRAM) 50 mg tablet 50 mg by Per G Tube route every six (6) hours asneeded for Pain. Yes Other , Phys, MDacetaminophen (TYLENOL) 325 mg tablet 650 mg by Per G Tube route every four (4)hours as needed for Pain. Yes Other, Elena Jurado Known AllergiesSocial HistoryTobacco Use Smoking status: Former Smoker Smokeless tobacco: Never UsedSub stance Use Topics Alcohol use: Not CurrentlyHistory reviewed. No pertinent family history.Current Facility-Administered MedicationsMedication Dose Route Frequen cy midodrine (PROAMATINE) tablet 10 mg 10 mg Oral TID WITH MEALS hydrocortisone s od succ (PF) (SOLU-CORTEF) 100 mg in 0.9% sodium chloride 50mL IVPB 100 mg IntraV ENous Q8H levothyroxine (SYNTHROID) tablet 200 mcg 200 mcg Per G Tube ACB 0.9% so dium chloride infusion 150 mL/hr IntraVENous CONTINUOUS NOREPINephrine (LEVOPHED) 8 mg in 5% dextrose 250mL (32 mcg/mL) infusion0.5-30 mcg/min IntraVENous TITRA TE vancomycin (VANCOCIN) 1,250 mg in 0.9% sodium chloride 250 mL IVPB 1,250 mgInt raVENous Q12H piperacillin-tazobactam (ZOSYN) 3.375 g in 0.9% sodium chloride (MBP/ADV) 100mL MBP 3.375 g IntraVENous Q8H enoxaparin (LOVENOX) injection 40 mg 40 mg SubCUTAneous Q24H pantoprazole (PROTONIX) 40 mg in 0.9% sodium chloride 10 mL injection 40 mgIntraVENous DAILYReview of Systems:n/aObjective:Keely l Signs:Visit VitalsBP 132/72 (BP 1 Location: Left arm)Pulse 83Temp 98.6 F (37 C)Res p 20Ht 5' 7" (1.702 m)Wt 113.4 kg (250 lb)SpO2 100%BMI 39.16 kg/m O2 Device: Ve ntilatorTemp (24hrs), Av.8 F (38.2 C), Min:98.1 F (36.7 C), Max:104.7 F (40. 4 C)Physical Exam:General: UnresponsiveHead: Normocephalic, without obvious abnormal ity, atraumatic.Eyes: Conjunctivae/corneas clear. PERRL, EOMs intact.Nose: Nares no rmal. Septum midline. Mucosa normal. No drainage or sinustenderness.Throat: Lips , mucosa, and tongue normal. Teeth and gums normal. + trach. MinimalsecretionsNeck: Supple, symmetrical, trachea midline, no adenopathy, thyroid: noenlargment/tender ness/nodules, no carotid bruit and no JVD.Back: Symmetric, no curvature. ROM normal.Lungs: Clear to auscultation bilaterally. No dullness to percussion o r tactilefremitus. No accessory muscle useChest wall: No tenderness or deformi ty.Heart: Regular rate and rhythm, S1, S2 normal, no murmur, click, rub or gallop. Abdomen: Soft, mildly distended, non- tender + PEG cleanExtremities: 2 + RUE e chris. Cool LE. Right femoral TLCPulses: Poorly palpableSkin: Skin color, texture , turgor normal. No rashes or lesionsLymph nodes: Cervical, supraclavicular, and ax illary nodes normal.Neurologic: Unresponsive.Data review:Recent Results (from the past 24 hour(s))EKG, 12 LEAD, INITIAL Collection Time: 03/13/20 10:28 AMResult Value Ref Range Ventricular Rate 101 BPM Atrial Rate 103 BPM P-R Interval 135 ms QRS Duration 90 ms Q-T Interval 388 ms QTC Calculation (Bezet) 503 ms Calculate d P [place] 107 degrees Calculated R [place] 94 degrees Calculated T [place] -29 degrees Di agnosis Age not entered, assumed to be 48 years old for purpose of ECGinterpretati onSinus tachycardiaBorderline right axis deviationLeft ventricular hypertrophyAnt erior Q waves, possibly due to LVHRepol abnrm, severe global ischemia (LM/MVD)Pr olonged QT intervalConfirmed by Veronica Crawley ([id number]) on 03/13/2020 5:01:26 PMMET ABOLIC PANEL, COMPREHENSIVE Collection Time: 03/13/20 10:40 AMResult Value Ref Range Sodium 138 136 - 145 mmol/L Potassium 4.2 3.5 - 5.1 mmol/L Chloride 105 98 - 107 mmol/ L CO2 27 21 - 32 mmol/L Anion gap 11 10 - 20 mmol/L Glucose 82 74 - 106 mg/dL BUN 25 (H) 7 - 18 mg/dL Creatinine 1.09 0.70 - 1.30 mg/dL GFR est AA >60 >60 ml/min/1.73m2 G FR est non-AA >60 >60 ml/min/1.73m2 Calcium 8.1 (L) 8.5 - 10.1 mg/dL Bilirubin, tota l 0.3 0.2 - 1.0 mg/dL ALT (SGPT) 11 (L) 13 - 61 U/L AST (SGOT) 30 15 - 37 U/L Alk. ph osphatase 87 45 - 117 U/L Protein, total 6.6 6.4 - 8.2 g/dL Albumin 2.4 (L) 3.5 - 4.7 g/dL Globulin 4.2 1.7 - 4.7 g/dL A-G Ratio 0.6 (L) 0.7 - 2.8LIPASE Collection Time: 03/13/20 10:40 AMResult Value Ref Range Lipase 116 73 - 393 U/LCBC WITH AUTOMATE D DIFF Collection Time: 03/13/20 10:40 AMResult Value Ref Range WBC 3.8 (L) 4.8 - 10.6 K/uL RBC 2.97 (L) 4.70 - 6.00 M/uL HGB 8.6 (L) 14.0 - 18.0 g/dL HCT 28.1 (L ) 42.0 - 52.0 % MCV 94.6 (H) 81.0 - 94.0 FL MCH 29.0 27.0 - 35.0 PG MCHC 30.6 (L) 30 .7 - 37.3 g/dL RDW 17.2 (H) 11.5 - 14.0 % PLATELET 205 130 - 400 K/uL MPV 12.0 (H) 9.2 - 11.8 FL NRBC 0.0 0 PER 100 WBC ABSOLUTE NRBC 0.00 0.0 - 0.01 K/uL NEUTR OPHILS 87 (H) 48.0 - 72.0 % BAND NEUTROPHILS 10 (H) 0 % LYMPHOCYTES 0 (L) 18.0 - 40.0 % MONOCYTES 1 (L) 2.0 - 12.0 % EOSINOPHILS 0 0.0 - 7.0 % BASOPHILS 1 0.0 - 3.0 % META MYELOCYTES 1 (H) 0 % IMMATURE GRANULOCYTES 0 % ABS. NEUTROPHILS 3.8 2.3 - 7.6 K/UL AB S. LYMPHOCYTES 0.0 (L) 0.9 - 4.2 K/UL ABS. MONOCYTES 0.0 (L) 0.1 - 1.7 K/UL ABS. EO SINOPHILS 0.0 0.0 - 1.0 K/UL ABS. BASOPHILS 0.0 K/UL ABS. IMM. GRANS. 0.0 K/UL RBC C OMMENTS NORMOCYTIC, NORMOCHROMIC PLATELET ESTIMATE ADEQUATE DF MANUALPROTHROMBIN T CARRIE + INR Collection Time: 03/13/20 10:40 AMResult Value Ref Range Prothrombin pretty e 11.0 9.4 - 11.1 sec INR 1.1 0.8 - 1.2PTT Collection Time: 03/13/20 10:40 AMResult Value Ref Range aPTT 20.0 (L) 21.0 - 28.0 SECTROPONIN I Collection Time: 03/13/20 10:40 AMResult Value Ref Range Troponin-I, Qt. 0.07 (HH) 0.00 - 0.05 NG/MLCULTURE, BLOOD Collection Time: 03/13/20 10:40 AMResult Value Ref Range Special Request s: NO SPECIAL REQUESTS GRAM STAIN GRAM NEGATIVE RODS ON ANAEROBIC BOTTLE GRAM S ACE CALLED TO AND READ BACK BY LIGIA BARRON,RN,CCU,03/13/20 @ 2020 Latricia Daily GRAM STAIN AEROBIC BOTTLE GRAM NEGATIVE RODS Culture result: (A) GRAM NEGATIVE RODS IDENTIFICATION AND SUSCEPTIBILITY TO FOLLOWURINALYSIS W/ RFLX MICROSCOPIC Col lection Time: 03/13/20 10:50 AMResult Value Ref Range Color YELLOW YEL Appearance CL OUDY (A) CLEAR Specific gravity 1.015 1.005 - 1.030 pH (UA) 8.0 4.6 - 8.0 Protein Nega tive NEG mg/dL Glucose Negative NEG mg/dL Ketone Negative NEG mg/dL Bilirubin Nega tive NEG Blood LARGE (A) NEG Urobilinogen 0.2 0.2 - 1.0 EU/dL Nitrites Negative NEG Le ukocyte Esterase TRACE (A) NEGLACTIC ACID Collection Time: 03/13/20 10:50 AMResult Value Ref Range Lactic acid 4.7 (HH) 0.4 - 2.0 MMOL/LURINE MICROSCOPIC Collection T carrie: 03/13/20 10:50 AMResult Value Ref Range WBC 20-50 /hpf RBC TOO NUMEROUS TO COUNT /hpf Epithelial cells 0-3 /hpf Bacteria 4+ /hpf Crystals, urine NONE /LPF Granular cast FEW /lpfBLOOD GAS, VENOUS Collection Time: 03/13/20 12:25 PMResult Value Ref Range VENOUS PH 7.40 7.32 - 7.43 VENOUS PCO2 43 38 - 54 mmHg VENOUS PO2 37 25 - 40 mm Hg CO2, VENOUS 28 (H) 22 - 26 mmol/L VENOUS BICARBONATE 27 22 - 29 mmol/L VENOUS O2 SATURATION 68 % DEVICE VENTILATOR FIO2 50.0 % MODE ASSIST CONTROL PEEP/CPAP 5 Tidal vo lume 500 RATE 14 Performed by [id number] COVID PCR Collection T carrie: 03/13/20 1:15 PMResult Value Ref Range SARS-CoV-2 Not detected NOTDLACTIC ACID Collection Time: 03/13/20 3:35 PMResult Value Ref Range Lactic acid 7.5 (HH) 0.4 - 2.0 MMOL/LCULTURE, BLOOD Collection Time: 03/13/20 9:00 PMResult Value Ref Range Special Requests: NO SPECIAL REQUESTS Culture result: NO GROWTH AFTER 8 HOURSCULTURE, BLOOD Collection Time: 03/13/20 9:12 PMResult Value Ref Range Special Request s: NO SPECIAL REQUESTS Culture result: NO GROWTH AFTER 8 HOURSTYPE & SCREEN Collec tion Time: 03/14/20 4:32 AMResult Value Ref Range Crossmatch Expiration 03/17/2020 A JESUS/Rh(D) A POSITIVE Antibody screen NEGCBC WITH AUTOMATED DIFF Collection Time: 4:34 AMResult Value Ref Range WBC 27.3 (H) 4.8 - 10.6 K/uL RBC 2.93 (L) 4.70 - 6.00 M/uL HGB 8.5 (L) 14.0 - 18.0 g/dL HCT 27.6 (L) 42.0 - 52.0 % MCV 94.2 (H) 81.0 - 94.0 FL MCH 29.0 27.0 - 35.0 PG MCHC 30.8 30.7 - 37.3 g/dL RDW 17.8 (H) 11.5 - 14. 0 % PLATELET 164 130 - 400 K/uL MPV 12.5 (H) 9.2 - 11.8 FL NRBC 0.0 0 PER 100 WBC ABS OLUTE NRBC 0.00 0.0 - 0.01 K/uL NEUTROPHILS 82 (H) 48.0 - 72.0 % BAND NEUTROPHILS 14 (H) 0 % LYMPHOCYTES 1 (L) 18.0 - 40.0 % MONOCYTES 0 (L) 2.0 - 12.0 % EOSINOPHILS 0 0.0 - 7.0 % BASOPHILS 0 0.0 - 3.0 % METAMYELOCYTES 2 (H) 0 % MYELOCYTES 1 (H ) 0 % IMMATURE GRANULOCYTES 0 % ABS. NEUTROPHILS 27.0 (H) 2.3 - 7.6 K/UL ABS. LYMPHOCYTES 0.3 (L) 0.9 - 4.2 K/UL ABS. MONOCYTES 0.0 (L) 0.1 - 1.7 K/UL ABS. EO SINOPHILS 0.0 0.0 - 1.0 K/UL ABS. BASOPHILS 0.0 K/UL ABS. IMM. GRANS. 0.0 K/UL RBC C OMMENTS 2+ANISOCYTOSIS PLATELET ESTIMATE ADEQUATE DF MANUALMETABOLIC PANEL, COMPR EHENSIVE Collection Time: 03/14/20 4:34 AMResult Value Ref Range Sodium 140 136 - 145 mmol/L Potassium 3.9 3.5 - 5.1 mmol/L Chloride 109 (H) 98 - 107 mmol/L CO2 22 21 - 32 mmol/L Anion gap 12 10 - 20 mmol/L Glucose 89 74 - 106 mg/dL BUN 41 (H) 7 - 18 mg/dL Creatinine 1.78 (H) 0.70 - 1.30 mg/dL GFR est AA 48 (L) >60 ml/min/1.73m 2 GFR est non-AA 40 (L) >60 ml/min/1.73m2 Calcium 7.3 (L) 8.5 - 10.1 mg/dL Bilirub in, total 0.5 0.2 - 1.0 mg/dL ALT (SGPT) 18 13 - 61 U/L AST (SGOT) 104 (H) 15 - 37 U /L Alk. phosphatase 61 45 - 117 U/L Protein, total 6.2 (L) 6.4 - 8.2 g/dL Albumin 2.1 (L) 3.5 - 4.7 g/dL Globulin 4.1 1.7 - 4.7 g/dL A-G Ratio 0.5 (L) 0.7 - 2.8LACTIC A ARTEMIO Collection Time: 03/14/20 4:34 AMResult Value Ref Range Lactic acid 4.2 (HH) 0.4 - 2.0 MMOL/LImaging:I have personally reviewed the patient's radiographs and h ave reviewed thereports:CXR with Trach ? Scant infiltrate vs atelectasisCritical care time spent at the bedside excluding procedures:37 min Name Value Range Interpretation Code Description Data [facility] rce(s) Supporting Document(s ) ID Date Data Source [id number] 03/14/2020 09:44:43 AM EDT [facility] Arina Leiva called to report positive bl ood cultures in all 4 bottles that wasdone at their facility that blood is growing gra m negative zayda . Dr Zeina combsready aware and blood cultures were repeated. Name Value Range Interpretation Code Description Data [facility] rce(s) Supporting Document(s ) ID Date Data Source [id number] 03/15/2020 11:17:47 AM EDT [facility] Name Value Range Interpretation Description Data Sup porting Code Source(s) Document(s ) Legionella [facility] pneumophila Ag [facility] [Presence] in Hospital Urine by Immunoassay PRESUMPTIVE NEGATIVE forL.pneumophila Se rogroup 1Antigen in urine,suggestingno recent or current infection.Infection due to Le gionellacannot be ruled out since otherserogroups and species may causedis ease,antigen may not bepresent in urine in earlyinfection, and the level ofantigen present in the urinemay be below the detectionlimit of the test. Service comment [facility] ID Date Data Source [id number] 03/14/2020 08:12:20 AM EDT [facility] The patient's Clinical Indicators includ e:Documentation noted, "Acute respiratory distress...O2 saturations werereportedly in the high 80s."RR in ER 33.Treatment: vent managementRisk factors: respiratory fail ure>> Acute on chronic respiratory failure>> Other>> Unable to determine>> Unknown Name Value Range Interpretation Code Description Data [facility] rce(s) Supporting Document(s ) ID Date Data Source [id number] 03/14/2020 07:57:02 AM EDT [facility] CHEST one viewHISTORY: Followup lung pat hology.Comparison is made to 03/13/2020.Accounting for differences in technique ( ) there has been no significant changeof a lower lobe atelectasis. Ferris valerie there appears to be an increase of aninfiltrate in the right midlung or low er lung field. No other interval change isnoted. Name Value Range Interpretation Code Description Data [facility] rce(s) Supporting Document(s ) IMP IMPRESSION: [facility] Increase of [facility] right midlung Hospital or lower lung field field infiltrate. Signing date/time: 03/14/2020 7:57 AMSi gned by: ALEX MUNOZ ID Date Data Source [id number] 03/14/2020 07:23:52 AM EDT [facility] Bedside and Verbal shift change report ashley blanco to Holly REAL (oncoming nurse) Caterina Berger RN (offgoing nurse). Report in cluded the following information SBAR,Intake/Output, MAR, Recent Results and Med Rec Status. Name Value Range Interpretation Code Description Data Annabelle rce(s) Supporting Document(s ) ID Date Data Source [id number] 03/14/2020 05:54:53 AM EDT [facility] Patient continues to be very restless, u ncomfortable, respirations in the 30s.Dr. Curiel informed. Orders received for Ativ an 1mg IV x 1 dose. Name Value Range Interpretation Code Description Data [facility] rce(s) Supporting Document(s ) ID Date Data Source [id number] 03/14/2020 05:51:10 AM EDT [facility] Patient is awake, very restless, and unc omfortable, not following commands,respirations 28, bucking the ve nt. Dr. Curiel informed. Orders received for Xanax0.25 PO via peg x 1 dose. Name Value Range Interpretation Code Description Data Annabelle rce(s) Supporting Document(s ) ID Date Data Source [id number] 03/14/2020 08:54:36 AM EDT [facility] Name Value Range Interpretation Description Data Sup porting Code Source(s) Document(s ) Leukocytes 27.3 4.8-10.6 Above high normal [facility] - [#/volume] in K/uL Good Blood by [facility] Automated count [facility] Erythrocytes 2.93 4.70-6.0 Below low normal [facility] - [#/volume] in M/uL 0 Good Blood by [facility] count [facility] Hemoglobin 8.5 g/dL 14.0-18. Below low normal [facility] - [Mass/volume] in 0 Good Blood [facility] Hematocrit 27.6 % 42.0-52. Below low normal [facility] - [Volume 0 Good Fraction] of [facility] Blood by Hospital Automated count Erythrocyte mean 94.2 FL 81.0-94. Above high normal [facility] - corpuscular 0 Good volume [Entitic [facility] volume] by Hospital Automated count Erythrocyte mean 29.0 PG 27.0-35. [facility] - corpuscular 0 Good hemoglobin [facility] [Entitic mass] [facility] by Automated count Erythrocyte mean 30.8 30.7-37. [facility] - corpuscular g/dL 3 Good hemoglobin [facility] concentration [facility] [Mass/volume] by Automated count Erythrocyte 17.8 % 11.5-14. Above high normal [facility] - distribution 0 Good width [Ratio] by [facility] Automated count [facility] Platelets 164 K/uL 130-400 [facility] - [#/volume] in Good Blood by [facility] Platelet mean 12.5 FL 9.2-11.8 Above high normal [facility] - volume [Entitic Good volume] in Blood [facility] Automated Hospital count Nucleated 0.0 PER 0 [facility] - erythrocytes/100 100 WBC Good leukocytes [facility] [Ratio] in Blood Hospital Nucleated 0.00 0.0-0.01 [facility] - erythrocytes K/uL Good [#/volume] in [facility] Segmented 82 % 48.0-72. Above high normal [facility] - neutrophils/100 0 Good leukocytes in [facility] Band form 14 % 0 Above high normal [facility] - neutrophils/100 Good leukocytes in [facility] Blood by Manual Hospital count Lymphocytes/100 1 % 18.0-40. Below low normal [facility] - leukocytes in 0 [facility] Monocytes/100 0 % 2.0-12.0 Below low normal [facility] - leukocytes in [facility] Eosinophils/100 0 % 0.0-7.0 [facility] - leukocytes in [facility] Basophils/100 0 % 0.0-3.0 [facility] - leukocytes in [facility] Metamyelocytes/1 2 % 0 Above high normal [facility] - 00 leukocytes in [facility] Blood by Manual [facility] count Hospital Myelocytes/100 1 % 0 Above high normal [facility] - leukocytes in [facility] Blood by Manual [facility] count Hospital Immature 0 % [facility] - granulocytes/100 Good leukocytes in [facility] Blood by Hospital Automated count Segmented 27.0 2.3-7.6 Above high normal [facility] - neutrophils K/UL Good [#/volume] in [facility] Lymphocytes 0.3 K/UL 0.9-4.2 Below low normal [facility] - [#/volume] in [facility] Monocytes 0.0 K/UL 0.1-1.7 Below low normal [facility] - [#/volume] in [facility] Eosinophils 0.0 K/UL 0.0-1.0 [facility] - [#/volume] in [facility] Basophils 0.0 K/UL [facility] - [#/volume] in [facility] Immature 0.0 K/UL [facility] - granulocytes Good [#/volume] in [facility] Blood by Hospital Automated count 2+ANISOCYTOSIS Platelet adequacy [Presence] in Blood by [facility] Light microscopy Differential cell count method - Blood [facility] - [facility] ID Date Data Source [id number] 03/14/2020 05:32:06 AM EDT [facility] Name Value Range Interpretation Description Data Sup porting Code Source(s) Document(s ) Lactate 4.2 0.4-2.0 Above upper panic [facility] - Good [Moles/volu MMOL/L [facility]] in Hospital Serum or Plasma CALLED TO AND READ BACK BYMICHAEL 0528 03/01 02/18 DarianaLEXISKATE ID Date Data Source [id number] 03/14/2020 05:11:06 AM EDT [facility] Name Value Range Interpretation Description Data Sup porting Code Source(s) Document(s ) Sodium 140 136-145 [facility] - [Moles/volume] in mmol/L [facility] Serum or Plasma [facility] Potassium 3.9 3.5-5.1 [facility] - [Moles/volume] in mmol/L [facility] Serum or Plasma [facility] Chloride 109 98-107 Above high [facility] - [Moles/volume] in mmol/L normal [facility] Serum or Plasma [facility] Carbon dioxide, 22 21-32 [facility] - total mmol/L Good [Moles/volume] in [facility] Serum or Plasma [facility] Anion gap in Serum 12 10-20 [facility] - or Plasma mmol/L [facility] Glucose 89 74-106 [facility] - [Mass/volume] in mg/dL [facility] Serum or Plasma [facility] Urea nitrogen 41 7-18 Above high [facility] - [Mass/volume] in mg/dL normal [facility] Serum or Plasma [facility] Creatinine 1.78 0.70-1. Above high [facility] - [Mass/volume] in mg/dL 30 normal Good Serum or Plasma [facility] Glomerular 48 >60 Below low normal [facility] - filtration ml/min/ Good rate/1.73 sq M 1.73m2 [facility]ism predicted among Hospital blacks [Volume Rate/Area] in Serum or Plasma by Creatinine-based formula (MDRD) Glomerular 40 >60 Below low normal [facility] - filtration ml/min/ Good rate/1.73 sq M 1.73m2 [facility]ism predicted among Hospital non-blacks [Volume Rate/Area] in Serum or Plasma by Creatinine-based formula (MDRD) Calcium 7.3 8.5-10. Below low normal [facility] - [Mass/volume] in mg/dL 1 Good Serum or Plasma [facility] Bilirubin.total 0.5 0.2-1.0 [facility] - [Mass/volume] in mg/dL Good Serum or Plasma [facility] Alanine 18 U/L 13-61 [facility] - aminotransferase Good [Enzymatic [facility]ism activity/volume] in Hospital Serum or Plasma Aspartate 104 U/L 15-37 Above high [facility] - aminotransferase normal Good [Enzymatic [facility]ism activity/volume] in Hospital Serum or Plasma by With P-5'-P Alkaline 61 U/L 45-117 [facility] - phosphatase Good [Enzymatic [facility]ism activity/volume] in Hospital Serum or Plasma Protein 6.2 6.4-8.2 Below low normal [facility] - [Mass/volume] in g/dL Good Serum or Plasma [facility] Albumin 2.1 3.5-4.7 Below low normal [facility] - [Mass/volume] in g/dL Good Serum or Plasma by [facility] Bromocresol [facility] (BCP) dye binding method Globulin 4.1 1.7-4.7 [facility] - [Mass/volume] in g/dL Good Serum by [facility] Albumin/Globulin 0.5 0.7-2.8 Below low normal [facility] - [Mass Ratio] in Good Serum or Plasma [facility] ID Date Data Source [id number] 03/14/2020 07:10:15 AM EDT [facility] Name Value Range Interpretation Description Data Sup porting Code Source(s) Document(s ) Specimen [facility] - Good expiration 0 [facility] ABO and Rh [facility] - Good group [Type] [facility] in [facility] Blood group [facility] - Good antibodies [facility] identified in Hospital Serum or Plasma ID Date Data Source [id number] 03/13/2020 09:20:45 PM EDT [facility] Patient has pink tinged urine from kelly , and slight oozing from right groinTLC. Dr. Curiel made aware. Orders received to erlin gautam's lovenox dose. Name Value Range Interpretation Code Description Data Annabelle rce(s) Supporting Document(s ) ID Date Data Source [id number] 03/13/2020 09:19:07 PM EDT [facility] Pt has positive blood cultures gram nega tive rods. Dr. Pastrana made aware.Orders received for repeat blood cultures x 2. Name Value Range Interpretation Code Description Data [facility] rce(s) Supporting Document(s ) ID Date Data Source [id number] 03/15/2020 06:26:08 AM EDT [facility] Name Value Range Interpretation Code Description Data Annabelle rce(s) Supporting Document(s ) Service [facility] ANAEROBIC BOTTLEGRAM NEGATIVE RODSCALLED TO AND READ BACK BYVALOR HEALTHCYN BORJA RN 1032 03/14/2020 D. SANTOSKLEBSIELLA PNEU MONIAE: Refer to previous culture(s) for susceptibility results ID Date Data Source [id number] 03/15/2020 06:23:37 AM EDT [facility] Name Value Range Interpretation Code [facility] AEROBIC BOTTLEGRAM NEGATIVE RODSCALLED T O AND READ BACK BYVALOR HEALTHCYN BORJA RB 1034 03/14/2020 D. SANTOSKLEBSIELLA PNEUMONIA E: Refer to previous culture(s) for susceptibility results ID Date Data Source [id number] 03/13/2020 07:59:33 PM EDT [facility] Dr. Pastrana called and updated on pt. Name Value Range Interpretation Code Description [facility] ) ID Date Data Source [id number] 03/13/2020 07:49:26 PM EDT [facility] Bedside and Verbal shift change report g francis to shruti (oncoming nurse) byholly (offgoing nurse). Report included the fo llowing information Kardex,Intake/Output and MAR. Name Value Range Interpretation Code Description Data [facility] rce(s) Supporting Document(s ) ID Date Data Source [id number] 03/13/2020 06:31:33 PM EDT [facility] The history is provided by the EMS abdiel woods.10:23 AM: Carlyle Pate is a 75 y.o. male with history of stroke, aphasia wit hright sided paralysis, trach dependency, and thyroid cancer [facility]. Per EMS report, thepatient's Sp O2 dropped to the 80s. EMS [facility] and report they sedated the patient en route to ED. Theyalso note th e patient had a fever (102F). EMS states the patient was negativefor COVID-19. 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 No pertinent family history.Social HistorySocioeconomic Hist ory Marital status: Spouse name: Not on file Number of children: Not on file Years of education: Not on file Highest education level: Not on fileOccu pational History Not on fileSocial Needs Financial resource strain: Not on file Food insecurity Worry: Not on file Inability: Not on file Transportation n eeds Medical: Not on file Non-medical: Not on fileTobacco Use Smoking status: Form er Smoker Smokeless tobacco: Never UsedSubstance and Sexual Activity Alcoh ol use: Not Currently Drug use: Never Sexual activity: Not on fileLifestyle P hysical activity Days per week: Not on file Minutes per session: Not on file Stress : Not on fileRelationships Social connections Talks on phone: Not on file Gets together: Not on file Attends taoism service: Not on file Active m ember of club or organization: Not on file Attends meetings of clubs or organizatio ns: Not on file Relationship status: Not on file Intimate partner violence Fear of current or ex partner: Not on file Emotionally abused: Not on file Physica lly abused: Not on file Forced sexual activity: Not on fileOther Topics Concer n Not on fileSocial History Narrative Not on fileALLERGIES: Patient has no known a llergies.Review of SystemsUnable to perform ROS: Patient nonverbalVitals: 03/13/20 1 310 03/13/20 1315 03/13/20 1320 03/13/20 1326BP: 98/67 105/86 130/84Pulse: 88 93 95Resp: 29 27 27Temp: 100.1 F (37.8 C)SpO2: 100% 99% 100%Weight:Height:10:10 AM Pulse Oximetry reading is 100% on vent with trach in place, whichindicates norm al oxygenation per Mike Ortega MD.Physical ExamVitals signs and nursing note review ed.Constitutional: General: He is not in acute distress. Appearance: He is well -developed. Comments: Sedated.HENT: Head: Normocephalic and atraumatic.Eyes: Pup ils: Pupils are equal, round, and reactive to light.Neck: Musculoskeletal: Neck supp le. Vascular: No JVD. Trachea: Tracheostomy present. Comments: Blood around trach site.Cardiovascular: Rate and Rhythm: Normal rate and regular rhythm. Heart sounds: Normal heart sounds.Pulmonary: Effort: Pulmonary ef fort is normal. No respiratory distress. Breath sounds: Rhonchi (mild, bilateral) present. No wheezing or rales.Abdominal: General: There is no distension. Palpa tions: Abdomen is soft. Tenderness: There is no abdominal tenderness. There is no guarding orrebound. Comments: G-TubeMusculoskeletal: Normal range of m otion. General: No tenderness.Skin: General: Skin is warm and dry.Neurologic al: Comments: Sedated. Right sided paralysis.MDMNumber of Diagnoses or Melonie gement OptionsAt risk for sepsis: new and requires workupFever, unspecified fever cause: new and requires workupAmount and/or Complexity of Data ReviewedClinical lab tests: ordered and reviewedTests in the radiology section of CPT : ordered and r eviewedDecide to obtain previous medical records or to obtain history from someon eother than the patient: yesObtain history from someone other than the patient: yes Review and summarize past medical records: yesDiscuss the patient with other provid ers: yesIndependent visualization of images, tracings, or specimens: yesRisk of Compl ications, Morbidity, and/or MortalityPresenting problems: moderateDi agnostic procedures: moderateManagement options: moderateCritical CareTotal time providing critical care: > 105 minutesPatient ProgressPatient progress: improved (guarded)Central LineDate/Time: 03/13/2020 12:15 PMPerformed by: Dakota Ortega, MDAuthorized by: Mike Ortega [facility] [place]: Consent obtained: Emergent situationUniversal protocol: Immediately prior to procedure, a time out was soares d: yes Patient identity confirmed: Arm bandPre-procedure details: Hand hygiene : Hand hygiene performed prior to insertion Sterile barrier technique: All elements of maximal sterile technique followed Skin preparation: ChloraPrepProcedure detail s: Location: R femoral Procedural supplies: Triple lumen Landmarks ident ified: yes Number of attempts: 1 Successful placement: yesPost-procedure details: Post-procedure: Dressing applied Assessment: Blood return through all po rts Patient tolerance of procedure: Tolerated well, no immediate complicatio nsI, Mike Ortega MD, reviewed the patient's past history, allergies and homemedicati ons as documented in the nursing chart.Labs:Recent Results (from the past 12 hour(s))EKG, 12 LEAD, INITIAL Collection Time: 03/13/20 10:28 AMResult Value Ref Range Ventricular Rate 101 BPM Atrial Rate 103 BPM P-R Interval 135 ms QRS Duration 90 ms Q-T Interval 388 ms QTC Calculation (Bezet) 503 ms Calculated P [place] 107 deg augustine Calculated R [place] 94 degrees Calculated T [place] -29 degrees Diagnosis Age not en tered, assumed to be 48 years old for purpose of ECGinterpretationSinus tachyc ardiaBorderline right axis deviationLeft ventricular hypertrophyAnterior Q waves, possibly due to LVHRepol abnrm, severe global ischemia (LM/MVD)Prolonged QT int ervalConfirmed by Veronica Crawley ([id number]) on 03/13/2020 5:01:26 PMMETABOLIC PANEL, COM PREHENSIVE Collection Time: 03/13/20 10:40 AMResult Value Ref Range Sodium 138 136 - 145 mmol/L Potassium 4.2 3.5 - 5.1 mmol/L Chloride 105 98 - 107 mmol/L CO2 27 21 - 32 mmol/L Anion gap 11 10 - 20 mmol/L Glucose 82 74 - 106 mg/dL BUN 25 (H) 7 - 18 mg/dL Creatinine 1.09 0.70 - 1.30 mg/dL GFR est AA >60 >60 ml/min/1.73m2 GFR est non-AA >60 >60 ml/min/1.73m2 Calcium 8.1 (L) 8.5 - 10.1 mg/dL Bilirubin, total 0.3 0. 2 - 1.0 mg/dL ALT (SGPT) 11 (L) 13 - 61 U/L AST (SGOT) 30 15 - 37 U/L Alk. phosphata se 87 45 - 117 U/L Protein, total 6.6 6.4 - 8.2 g/dL Albumin 2.4 (L) 3.5 - 4.7 g/dL Globulin 4.2 1.7 - 4.7 g/dL A-G Ratio 0.6 (L) 0.7 - 2.8LIPASE Collection Time: 0 10:40 AMResult Value Ref Range Lipase 116 73 - 393 U/LCBC WITH AUTOMATED DIFF Terri ection Time: 03/13/20 10:40 AMResult Value Ref Range WBC 3.8 (L) 4.8 - 10.6 K/uL RB C 2.97 (L) 4.70 - 6.00 M/uL HGB 8.6 (L) 14.0 - 18.0 g/dL HCT 28.1 (L) 42.0 - 52.0 % M CV 94.6 (H) 81.0 - 94.0 FL MCH 29.0 27.0 - 35.0 PG MCHC 30.6 (L) 30.7 - 37.3 g/dL R DW 17.2 (H) 11.5 - 14.0 % PLATELET 205 130 - 400 K/uL MPV 12.0 (H) 9.2 - 11.8 FL NRBC 0.0 0 PER 100 WBC ABSOLUTE NRBC 0.00 0.0 - 0.01 K/uL NEUTROPHILS 87 (H) 48.0 - 72.0 % BAND NEUTROPHILS 10 (H) 0 % LYMPHOCYTES 0 (L) 18.0 - 40.0 % MONOCYTES 1 (L) 2.0 - 12.0 % EOSINOPHILS 0 0.0 - 7.0 % BASOPHILS 1 0.0 - 3.0 % METAMYELOCYTES 1 (H) 0 % IMM ATURE GRANULOCYTES 0 % ABS. NEUTROPHILS 3.8 2.3 - 7.6 K/UL ABS. LYMPHOCYTES 0.0 (L) 0.9 - 4.2 K/UL ABS. MONOCYTES 0.0 (L) 0.1 - 1.7 K/UL ABS. EOSINOPHILS 0.0 0.0 - 1.0 K/UL ABS. BASOPHILS 0.0 K/UL ABS. IMM. GRANS. 0.0 K/UL RBC COMMENTS NORMOCYTIC, NORMOC HROMIC PLATELET ESTIMATE ADEQUATE DF MANUALPROTHROMBIN TIME + INR Collection Time: 03/13/20 10:40 AMResult Value Ref Range Prothrombin time 11.0 9.4 - 11.1 sec INR 1.1 0.8 - 1.2PTT Collection Time: 03/13/20 10:40 AMResult Value Ref Range aPTT 20.0 (L) 21.0 - 28.0 SECTROPONIN I Collection Time: 03/13/20 10:40 AMResult Value Ref Range Troponin-I, Qt. 0.07 (HH) 0.00 - 0.05 NG/MLURINALYSIS W/ RFLX MICROSCOPIC Terri ection Time: 03/13/20 10:50 AMResult Value Ref Range Color YELLOW YEL Appearance CL OUDY (A) CLEAR Specific gravity 1.015 1.005 - 1.030 pH (UA) 8.0 4.6 - 8.0 Protein Nega tive NEG mg/dL Glucose Negative NEG mg/dL Ketone Negative NEG mg/dL Bilirubin Nega tive NEG Blood LARGE (A) NEG Urobilinogen 0.2 0.2 - 1.0 EU/dL Nitrites Negative NEG Le ukocyte Esterase TRACE (A) NEGLACTIC ACID Collection Time: 03/13/20 10:50 AMResult Value Ref Range Lactic acid 4.7 (HH) 0.4 - 2.0 MMOL/LURINE MICROSCOPIC Collection T carrie: 03/13/20 10:50 AMResult Value Ref Range WBC 20-50 /hpf RBC TOO NUMEROUS TO COUNT /hpf Epithelial cells 0-3 /hpf Bacteria 4+ /hpf Crystals, urine NONE /LPF Granular cast FEW /lpfBLOOD GAS, VENOUS Collection Time: 03/13/20 12:25 PMResult Value Ref Range VENOUS PH 7.40 7.32 - 7.43 VENOUS PCO2 43 38 - 54 mmHg VENOUS PO2 37 25 - 40 mm Hg CO2, VENOUS 28 (H) 22 - 26 mmol/L VENOUS BICARBONATE 27 22 - 29 mmol/L VENOUS O2 SATURATION 68 % DEVICE VENTILATOR FIO2 50.0 % MODE ASSIST CONTROL PEEP/CPAP 5 Tidal vo lume 500 RATE 14 Performed by [id number] ACID Collection Time: 03/13/20 3:35 PMR esult Value Ref Range Lactic acid 7.5 (HH) 0.4 - 2.0 MMOL/LEK:30 AM Sinus tach ycardia at 101 BPM, LVH, ST depression in [id number] by Mike Ortega MDRadiolo gy:CXR Results (Last 48 hours) 03/13/20 1118 XR CHEST PORT Final result Impression: IMPRESSION:1. Mild increased interstitial margins bilaterally consistent with infi ltrates.2. Small left effusion.3. Upper limits of normal to mild cardiac enlarge ment. Narrative: XR CHEST PORTABLE-SINGLE VIEWPRIOR: NoneHISTORY: Limited to that provided by the emergency department at the time ofthis examination; BIBA from [facility] for res failurePt has trach collar and ventedFINDINGS: Mild increased interstit ial markings are identified bilaterallyconsistent with infiltrates. There is mild haziness of the costophrenic angle onthe left suggesting a small effu halina. No right effusion is present. Atracheostomy is present and in good pos ition-unchanged.The cardiac silhouette is at the upper limits of normal to mildly enl arged.There is a significant dorsal scoliotic curvature of the thoracic spine.Radiolog y interpretation reviewed by Mike Ortega MD<EMERGENCY DEPARTMENT CASE SUMMARY>Imp ression/Differential Diagnosis: respiratory failure, r/o aspirationpneumonia, r/o tr auma to airway, sepsisED Course:75 y.o. male presented to the ED for respiratory fail ure (SpO2 in 80s), withendotracheal tube placed prior to arrival. Order labs, EKG , and CXR. Give IVfluids and Zosyn.COVID-19 suspected. Droplet precautions were lisa en.The patient had a surgical mask on upon entering the room: yesProvider PPE donne d, including:Surgical mask: yesN95 mask: yesEye Protection: yesGloves: yesGown: y esPatient was seen during Covid-19 pandemic which may have affected standard ofcare. 10:50 AM Order Urine Microscopic.11:16 AM Give IV fliuds and Tylenol (975 mg).11:2 1 AM Give Vancomycin.Labs and radiology results reviewed.12:23 PM Case presentat ions and findings discussed with Dr. Singh(Hospitalist) who agrees to admi t the patient for further workup and treatment.Patient was reassessed prior t o disposition.12:25 PM Order VBG. Give IV fluids. Order ABG.12:45 PM Give Levophed .1:03 PM Order COVID-19 test.Lab results reviewed.Final Impression/Diagnosis:Enco unter Diagnoses ICD-10-CM ICD-9-CM1. Fever, unspecified fever cause R50.9 780.602. A t risk for sepsis Z91.89 V49.89Patient condition at time of disposition: Stable I have reviewed the following home medications:Prior to Admission medicatio nsMedication Sig Start Date End Date Taking? Authorizing ProvideramLODIPine (NORVASC) 10 mg tablet 10 mg by Per G Tube route daily. Yes Other,Phys MDescitalopram oxalate (LEXAPRO) 10 mg tablet 10 mg by Per G Tube route daily.Yes Other, Phys MDfamo tidine (PEPCID) 20 mg tablet 20 mg by Per G Tube route two (2) times a day.Yes Other , Phys MDgabapentin (NEURONTIN) 100 mg capsule 100 mg by Per G Tube route three (3) timesdaily. Yes Other, Phys, MDlevothyroxine (SYNTHROID) 200 mcg tabl et Take 200 mcg by mouth Daily (beforebreakfast). Yes Other, Phys MD melatonin 5 mg cap capsule Take 9 mg by mouth nightly. Yes Other, Phys, MDsennosides 17.2 mg tab 17.2 mg by PEG Tube route daily. Yes Other, Phys, MDlosartan (COZAAR) 1 00 mg tablet 150 mg by Per G Tube route daily. Yes Other,Phys, MDdoxazosin (CA RDURA) 1 mg tablet 1 mg by Per G Tube route nightly. Yes Other,Phys, MDascorbic ac id, vitamin C, (VITAMIN C) 500 mg tablet 500 mg by Per G Tube routedaily. Yes Other , Phys, MDchlorhexidine (PERIDEX) 0.12 % solution 15 mL by Swish and Spit route d aily.Yes Other, Phys, MDdocusate sodium (Colace) 100 mg capsule 200 mg by Per G Tube route daily. YesOther, Phys, MDDOCUSATE SODIUM-BENZOCAINE RE Insert 5 mL into rectum. Every 2 days Yes Other,Phys, MDmultivitamin (ONE A DAY) t ablet 1 Tab by Per G Tube route daily. Yes Other,Phys, MDnystatin (MYCOSTATIN) topi rod cream Apply to affected area three (3) timesdaily. Yes Other, Phys, MDpolyeth ylene glycol (MIRALAX) 17 gram packet Take 17 g by mouth daily. YesOther, Phys, MDSE NNA 528 mg by PEG Tube route. Yes Other, Phys, MDergocalciferol (Vitamin D2) 1,25 0 mcg (50,000 unit) capsule Take 50,000 Units bymouth. Yes Other, Phys, MDALBUTEROL IN Take 2 Puffs by inhalation four (4) times daily. Yes Other, Phys,MDaspirin (ASPI RIN) 325 mg tablet 325 mg by PEG Tube route daily. Yes Other,Phys, MDatorvastatin (LIPITOR) 40 mg tablet 40 mg by Per G Tube route daily. YesOther, Phys, MDbisacod yL 5 mg tab Insert 10 mg into rectum nightly. Yes Other, Phys, MDenoxaparin (Lovenox ) 40 mg/0.4 mL 40 mg by SubCUTAneous route daily. YesOther, Phys, MDpotassium bic arb-citric acid (EFFER-K) 20 mEq tablet Take 20 mEq by mouth two(2) times a day. Ye s Other, Phys, MDFLUTICASONE PROPIONATE IN 1 [place] by Nasal route two (2) times a day . YesOther, Phys, MDALPRAZolam (XANAX) 0.25 mg tablet 0.25 mg by Per G Tube route ev malachi eight (8)hours as needed for Anxiety. Yes Other, Phys, MDtraMADoL (ULTRAM) 50 mg tablet 50 mg by Per G Tube route every six (6) hours asneeded for Pain. Yes Other , Yefri Juradotaminophen (TYLENOL) 325 mg tablet 650 mg by Per G Tube route every four (4)hours as needed for Pain. Yes Other, Violette Jurado Robin S, MD I, Roman Gallagher, am serving as a scribe to document services personallyperformed by Mike Ortega MD based on my observation and the provider'sstatements to me.I, David Ortega MD, attest that the person(s) noted above, acting as myscribe(s) noted above , has observed my performance of the services and hasdocumented them in accordance wit h my direction. I have personally reviewed theabove information and have ordered an d reviewed the diagnostic studies, unlessotherwise noted.+ Name Value Range Interpretation Code Description Data [facility] rce(s) Supporting Document(s ) ID Date Data Source [id number] 03/13/2020 05:25:36 PM EDT [facility] Received patient with a tracheostomy con nected to ventilator, able to move toleft arm . peg clamped, kelly present draining b lood tinged urine.SB/P in the80' Dr Gramajo order to start fluid And levophed resta rted. Patient 's wascalled information received . Name Value Range Interpretation Code Description [facility] ) ID Date Data Source [id number] 03/13/2020 05:10:07 PM EDT [facility] DUPLEX UPPER EXT VENOUS RIGHTClinical in dication: evaluate of RUE DVT . Edema.Priors: None.FINDINGS: The right subclavian vein up to the brachial vein is compressible andshows normal phasic flow without an i ntraluminal thrombus. In addition, theright internal jugular vein, cephalic vein and the basilic vein is alsopatent.IMPRESSION: No evidence of deep vein thrombosis with in the right upperextremity venous circulation.PS Electronically Signed: Erin Acevedo MD 03/13/2020 5:10 PM Signing date/time: 03/13/2020 5:10 PMSigned by: JUAN ACEVEDO Name Value Range Interpretation Code Description Data [facility] rce(s) Supporting Document(s ) ID Date Data Source [id number] 03/13/2020 04:04:08 PM EDT [facility] Care Management InterventionsPCP Verifie d by CM: Yes(Dr. Prajapati)Palliative Care Criteria Met (RRAT>21 & CHF Dx)?: NoTran sition of Care Consult (CM Consult): Discharge PlanningMyChart Signup: [place] Durable Medical Equipment: NoPhysical Therapy Consult: NoOccupational Therapy Consult: NoSpeech Therapy Consult: NoCurrent Support Network: Other(From [facility] Acute re hab)Confirm Follow Up Transport: Other (see comment)(ambulance)The Patient and/or Pa tient Sewer Hand was Provided with a Choice of Providerand Agrees with the Di scharge Plan?: YesName of the Patient Sewer Hand Who was Provided with a C darienice of Providerand Agrees with the Discharge Plan: patient Jennifer om of Choice List was Provided with Basic Dialogue that Supports thePatient's Caren vidualized Plan of Care/Goals, Treatment Preferences and Sharesthe Quality Data A ssociated with the Providers?: YesVeteran Resource Information Provided?: RefusedD ischarge LocationDischarge Placement: Rehab hospital/unit acute([facility])CASE MANAGEMENT PSYCHOSOCIAL ASSESSMENTEdnaa Pate Admission Date: 03/13/2020MRN: [id number] of : 1945urrent date: 03/13/2020DISCHAR GE PLAN: Call placed to pt's Flory [phone] to discussdischarge dee dee ramirez. Pt was admitted from ACUTE rehab at [facility]. Pt's confirmedall information on fa ce sheet and confirmed that she is emergency contact.Discussed code status with who wishes for pt to remain a full code. Wifereports "give him CPR but that's it" . Pt's reports pt has a HCP and otheradvance directives and will speak w ana RN about providing for hospital. Ptadmitted to [facility] after LTACH course at [place]. [facility] when medically stable.Spoke with [facility] liaison Maryse who confirmed pt is from ACUTE rehab at [facility] underthe care of Dr. Edison Prajapati MD to must be completed with Dr. Prajapati [phone] prior to discharge. [facility] CCLINKED.Patient Information:Patient Obj ects to Receiving Blood: UnknownPCP: Edison Prajapati, MDAdmitting Prov ider: Chiquita Velazquez MDCJW [facility] T[facility] HEAT EXCHANGER CLEANER: [place]APay[place]: [place] / Plan[place] PART A [place] B/ Product Type: Medicare /Secondary Payor: @SECINSGROUPNAME@Septic shock (HCC) [A41 .9, R65.21]Patient Active Problem ListDiagnosis Code Septic shock (HCC) A 41.9, R65.21Social HistorySubstance and Sexual ActivityAlcohol Use Not Currently Number of stairs into patient home:DME:Cohabitants:Abuse Screen:INSURA NCE INFORMATION: (Verification)Primary Notes: MCRSecondary Notes: [facility] H[facility]PITALWorkmen's Comp Notes:No-Fault Notes:SSD Notes:Un-Insured Notes:Long-Term Care In surance If Applicable Notes:Current Functioning:Language barriers: Notes:Und erstanding nature/impact of illness: Notes:Ability to participate in plan: No robert:Realistic Problem solving and planning: Notes:Adequate coping skills: Notes:Reli gious/Cultural barriers: Notes:If unable to assess or not applicable: Notes:Suicide Assessment:Readmit Risk:Advanced Care Planning: Name Value Range Interpretation Code Description Data Annabelle rce(s) Supporting Document(s ) ID Date Data Source [id number] 03/13/2020 04:33:36 PM EDT [facility] Name Value Range Interpretation Description Data Sup porting Code Source(s) Document(s ) Lactate 7.5 0.4-2.0 Above upper panic [facility] [Moles/volu MMOL/L limits [facility]] in Hospital Serum or Plasma CALLED TO AND READ BACK ADIA Daily 1628 03/13/20 TAHIR ID Date Data Source [id number] 03/13/2020 03:14:16 PM EDT [facility] Pulmonary Initial Patient ConsultName: Jesse Pate : 1945 [facility] IMPRESSION/[id number] male with a history of reported atrial fibrillatio n 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 Status post admission to [facility] on 01/31-> 03/12--> [facility] --> [facility] secondary to lethargy, respiratory distress, fever andhypotension.-Patient has reportedly been COVID negative on multiple occasions-CT of the head with o ld right parietal infarct and left subacuteperiventricular infarct-Presumed septic shock? -CXR relatively clear with mild left basilar atx vs infiltrate -(+) U/A -Empiric Zosyn + Vanco for healthcare associated infection. Cxs pen ding -IVF-RUE edema asymmetric. Check RUE Doppler, R/o DVT-Afib rate controlled. Patient on DVT treatment dosage of lovenox prior totransfer.-previous COVID (-). Re peat pending-DVT and SUP prophyDiscussed with Flory (prnounced Fish-Hay) [phone]:This patient has been seen and evaluated at the request of Dr. Velazquez for respiratory failure and septic shock. History is obtained primarily from thech art. Patient is a 75 y.o. male with a reported history of head neck cancerstat us post radiation many years ago with subglottic stenosis, atrialfibrillation status post recent admission to [facility] in Decembersecondary to 15 mL left basal ganglia hemorrhage complicated by respiratoryfailure secondary to mucous p lugging and pneumonia. Patient underwenttracheostomy and PEG insertion on January 16. Most recent CT of the head on revealed evolving hemorrhage. P atient subsequently transferred to [facility] on 01/31 for vent weaning. Patient subsequently transferred to [facility] on 03/12 for aggressi ve rehabilitation. [facility] today secondary tohypoxemia, tachypnea and lethargy. O2 saturations were reportedly in the [id number]. Tracheostomy was changed to a Shiley #6 cuffed tracheostomy. In theemergency room patient noted to be hypotensive. Fever 104.7 Right femoral TLCwas inserted. Patient started on Levophed. Patient cu rrently unresponsiveunable to provide historyPast Medical History:Diagnosis Da te Anxiety Aphasia Atrial fibrillation (HCC) with ventricular tachycardia Bila teral carotid artery disease (HCC) CAD (coronary artery disease) Chronic cysti tis Dysphagia Head and neck cancer (HCC) Hemiparesis (HCC) right side HLD (hyper lipidemia) Hypertension Hypoxemia Infarction of left basal ganglia (HCC) i ntracranial hemorrhage Pneumonia Prostate cancer (HCC) Respiratory failure (HCC) S/P percutaneous endoscopic gastrostomy (PEG) tube placement (HCC) Thymus cance r (HCC) Thyroid cancer (HCC)Past Surgical History:Procedure Laterality Date HX OT HER SURGICAL thymus gland removed HX TRACHEOSTOMY IR INSERT GASTROSTOMY TUBE PERCPrior to Admission medicationsMedication Sig Start Date End Date Taking? Authoriz ing ProvideramLODIPine (NORVASC) 10 mg tablet 10 mg by Per G Tube route daily. Yes O ther,Phys, MDescitalopram oxalate (LEXAPRO) 10 mg tablet 10 mg by Per G Tube route d aily.Yes Other, Phys, MDfamotidine (PEPCID) 20 mg tablet 20 mg by Per G Tube route t wo (2) times a day.Yes Other, Phys, MDgabapentin (NEURONTIN) 100 mg capsule 100 mg by Per G Tube route three (3) timesdaily. Yes Other, Phys, MDlevothy roxine (SYNTHROID) 200 mcg tablet Take 200 mcg by mouth Daily (beforebreakfast). Yes Other, Phys, MDmelatonin 5 mg cap capsule Take 9 mg by mouth nightly. Yes Other, Phys, MDsennosides 17.2 mg tab 17.2 mg by PEG Tube route daily. Yes Other, Phys, MDlosartan (COZAAR) 100 mg tablet 150 mg by Per G Tube route daily. Yes Other,Phys , MDdoxazosin (CARDURA) 1 mg tablet 1 mg by Per G Tube route nightly. Yes Other,Ph ys, MDascorbic acid, vitamin C, (VITAMIN C) 500 mg tablet 500 mg by Per G Tube route daily. Yes Other, Phys, MDchlorhexidine (PERIDEX) 0.12 % solution 15 mL by Swish and Spit route daily.Yes Other, Phys, MDdocusate sodium (Colace) 100 mg capsul e 200 mg by Per G Tube route daily. YesOther, Phys, MDDOCUSATE SODIUM-BENZOC CANDY RE Insert 5 mL into rectum. Every 2 days Yes Other,Phys, MDmultivitamin (ONE A DAY) tablet 1 Tab by Per G Tube route daily. Yes Other,Phys, MDnystatin (MYCOSTATIN) topical cream Apply to affected area three (3) timesdaily. Yes Other, Phys, MDpol yethylene glycol (MIRALAX) 17 gram packet Take 17 g by mouth daily. YesOther, Ph ys, MDSENNA 528 mg by PEG Tube route. Yes Other, Phys, MDergocalciferol (Vitamin D 2) 1,250 mcg (50,000 unit) capsule Take 50,000 Units bymouth. Yes Other, Phys, MDALBUTEROL IN Take 2 Puffs by inhalation four (4) times daily. Yes Other, Phys, MDaspirin (ASPIRIN) 325 mg tablet 325 mg by PEG Tube route daily. Yes Other,Phys, MDatorvastatin (LIPITOR) 40 mg tablet 40 mg by Per G Tube route daily. YesOther, P hys, MDbisacodyL 5 mg tab Insert 10 mg into rectum nightly. Yes Other, MD Adrieneno xaparin (Lovenox) 40 mg/0.4 mL 40 mg by SubCUTAneous route daily. YesOther, Ph ys, MDpotassium bicarb-citric acid (EFFER-K) 20 mEq tablet Take 20 mEq by mouth two(2 ) times a day. Yes Other, Phys MDFLUTICASONE PROPIONATE IN 1 [place] by N marci route two (2) times a day. YesOther, Phys, MDALPRAZolam (XANAX) 0.25 mg table t 0.25 mg by Per G Tube route every eight (8)hours as needed for Anxiety. Yes Ot her, Phys, MDtraMADoL (ULTRAM) 50 mg tablet 50 mg by Per G Tube route every six (6) hours asneeded for Pain. Yes Other, Phys, MDacetaminophen (TYLENOL) 325 mg tablet 650 mg by Per G Tube route every four (4)hours as needed for Pain. Yes Other , PhysElena Known AllergiesSocial HistoryTobacco Use Smoking status: Form er Smoker Smokeless tobacco: Never UsedSubstance Use Topics Alcohol use: N ot CurrentlyHistory reviewed. No pertinent family history.Current Facility-Administ ered MedicationsMedication Dose Route Frequency 0.9% sodium chloride infusion 100 mL/hr IntraVENous CONTINUOUS NOREPINephrine (LEVOPHED) 8 mg in 5% dex trose 250mL (32 mcg/mL) infusion 8mcg/min IntraVENous TITRATE vancomycin (VANCOCI N) 1,250 mg in 0.9% sodium chloride 250 mL IVPB 1,250 mgIntraVENous Q12H piperaci llin-tazobactam (ZOSYN) 3.375 g in 0.9% sodium chloride (MBP/ADV) 100mL MBP 3.3 75 g IntraVENous [id number] of Systems:n/aObjective:Vital Signs:Visit V italsBP (!) 53/31Pulse 78Temp 100.1 F (37.8 C)Resp 29Ht 5' 7" (1.702 m)Wt 113.4 kg ( 250 lb)SpO2 100%BMI 39.16 kg/m O2 Device: VentilatorTemp (24hrs), Av.2 F (39 C), Min:99.9 F (37.7 C), Max:104.7 F (40.4 C)Physical Exam:General: Unrespon siveHead: Normocephalic, without obvious abnormality, atraumatic.Eyes: Conjuncti vae/corneas clear. PERRL, EOMs intact.Nose: Nares normal. Septum midline. Mucosa nor mal. No drainage or sinustenderness.Throat: Lips, mucosa, and tongue normal. Teeth a nd gums normal. + trach. MinimalsecretionsNeck: Supple, symmetric al, trachea midline, no adenopathy, thyroid: noenlargment/tenderness/nodules, no haynes tid bruit and no JVD.Back: Symmetric, no curvature. ROM normal.Lungs: Clear to auscultation bilaterally. No dullness to percussion or tactilefremitus. No access ory muscle useChest wall: No tenderness or deformity.Heart: Regular rate and rhyth m, S1, S2 normal, no murmur, click, rub or gallop.Abdomen: Soft, mildly distended , non- tender + PEG cleanExtremities: 2 + RUE edema. Cool LE. Right femoral TLCPulses: Poorly palpableSkin: Skin color, texture, turgor normal. No rashes or lesionsLymph nodes: Cervical, supraclavicular, and axillary nodes normal.Neurologic: Unresp onsive.Data review:Recent Results (from the past 24 hour(s))EKG, 12 LEAD, INITIAL Co llection Time: 03/13/20 10:28 AMResult Value Ref Range Ventricular Rate 101 BPM Atria l Rate 103 BPM P-R Interval 135 ms QRS Duration 90 ms Q-T Interval 388 ms QTC C alculation (Bezet) 503 ms Calculated P [place] 107 degrees Calculated R [place] 94 degrees Calculated T [place] -29 degrees Diagnosis Age not entered, assumed to be 48 years old for purpose of ECGinterpretationSinus tachycardiaBorderline right axis deviati onLeft ventricular hypertrophyAnterior Q waves, possibly due to LVHRepol abnrm, s evere global ischemia (LM/MVD)Prolonged QT intervalMETABOLIC PANEL, COMPREHENSIVE C ollection Time: 03/13/20 10:40 AMResult Value Ref Range Sodium 138 136 - 145 mmol/L Po tassium 4.2 3.5 - 5.1 mmol/L Chloride 105 98 - 107 mmol/L CO2 27 21 - 32 mmol/L Anion gap 11 10 - 20 mmol/L Glucose 82 74 - 106 mg/dL BUN 25 (H) 7 - 18 mg/dL Creatinine 1.09 0.70 - 1.30 mg/dL GFR est AA >60 >60 ml/min/1.73m2 GFR est non-AA >60 >60 ml/ min/1.73m2 Calcium 8.1 (L) 8.5 - 10.1 mg/dL Bilirubin, total 0.3 0.2 - 1.0 mg/dL ALT (SGPT) 11 (L) 13 - 61 U/L AST (SGOT) 30 15 - 37 U/L Alk. phosphatase 87 45 - 117 U/L Protein, total 6.6 6.4 - 8.2 g/dL Albumin 2.4 (L) 3.5 - 4.7 g/dL Globulin 4.2 1.7 - 4. 7 g/dL A-G Ratio 0.6 (L) 0.7 - 2.8LIPASE Collection Time: 03/13/20 10:40 AMResult Value Ref Range Lipase 116 73 - 393 U/LCBC WITH AUTOMATED DIFF Collection Time: 10:40 AMResult Value Ref Range WBC 3.8 (L) 4.8 - 10.6 K/uL RBC 2.97 (L) 4.70 - 6.00 M/uL HGB 8.6 (L) 14.0 - 18.0 g/dL HCT 28.1 (L) 42.0 - 52.0 % MCV 94.6 (H) 81.0 - 94.0 FL MCH 29.0 27.0 - 35.0 PG MCHC 30.6 (L) 30.7 - 37.3 g/dL RDW 17.2 (H) 11.5 - 14.0 % PLATELET 205 130 - 400 K/uL MPV 12.0 (H) 9.2 - 11.8 FL NRBC 0.0 0 PER 100 WBC ABSOLUTE NRBC 0.00 0.0 - 0.01 K/uL NEUTROPHILS 87 (H) 48.0 - 72.0 % BAND NE UTROPHILS 10 (H) 0 % LYMPHOCYTES 0 (L) 18.0 - 40.0 % MONOCYTES 1 (L) 2.0 - 12.0 % EOSI NOPHILS 0 0.0 - 7.0 % BASOPHILS 1 0.0 - 3.0 % METAMYELOCYTES 1 (H) 0 % IMMATURE GRANUL OCYTES 0 % ABS. NEUTROPHILS 3.8 2.3 - 7.6 K/UL ABS. LYMPHOCYTES 0.0 (L) 0.9 - 4.2 K/UL ABS. MONOCYTES 0.0 (L) 0.1 - 1.7 K/UL ABS. EOSINOPHILS 0.0 0.0 - 1.0 K/UL ABS. BASOPHILS 0.0 K/UL ABS. IMM. GRANS. 0.0 K/UL RBC COMMENTS NORMOCYTIC, NORMOCHROMIC PL ATELET ESTIMATE ADEQUATE DF MANUALPROTHROMBIN TIME + INR Collection Time: 03/13/20 10: 40 AMResult Value Ref Range Prothrombin time 11.0 9.4 - 11.1 sec INR 1.1 0.8 - 1.2PTT Collection Time: 03/13/20 10:40 AMResult Value Ref Range aPTT 20.0 (L) 21.0 - 28. 0 SECTROPONIN I Collection Time: 03/13/20 10:40 AMResult Value Ref Range Troponin- I, Qt. 0.07 (HH) 0.00 - 0.05 NG/MLURINALYSIS W/ RFLX MICROSCOPIC Collection Time: 10:50 AMResult Value Ref Range Color YELLOW YEL Appearance CLOUDY (A) CLEAR S pecific gravity 1.015 1.005 - 1.030 pH (UA) 8.0 4.6 - 8.0 Protein Negative NEG mg/dL Glucose Negative NEG mg/dL Ketone Negative NEG mg/dL Bilirubin Negative NEG Blood L ARGE (A) NEG Urobilinogen 0.2 0.2 - 1.0 EU/dL Nitrites Negative NEG Leukocyte Esterase TRACE (A) NEGLACTIC ACID Collection Time: 03/13/20 10:50 AMResult Value Ref Range Lactic acid 4.7 (HH) 0.4 - 2.0 MMOL/LURINE MICROSCOPIC Collection Time: 03/13/20 10 :50 AMResult Value Ref Range WBC 20-50 /hpf RBC TOO NUMEROUS TO COUNT /hpf Epithelia l cells 0-3 /hpf Bacteria 4+ /hpf Crystals, urine NONE /LPF Granular cast FEW /lpfBL OOD GAS, VENOUS Collection Time: 03/13/20 12:25 PMResult Value Ref Range VENOUS PH 7.40 7.32 - 7.43 VENOUS PCO2 43 38 - 54 mmHg VENOUS PO2 37 25 - 40 mmHg CO2, VENOUS 2 8 (H) 22 - 26 mmol/L VENOUS BICARBONATE 27 22 - 29 mmol/L VENOUS O2 SATURATION 68 % DE VICE VENTILATOR FIO2 50.0 % MODE ASSIST CONTROL PEEP/CPAP 5 Tidal volume 500 RAT E 14 Performed by [id number]:I have personally reviewed the patient's radiog raphs and have reviewed thereports:CXR with Trach ? Left basilar atx vs small infilt rateCritical care time spent at the bedside excluding procedures:45 minElectronicall y signed by Sd Gramajo MD on 03/13/2020 at 3:13 PM Name Value Range Interpretation Code Description Data Annabelle rce(s) Supporting Document(s ) ID Date Data Source 36N*ENCOUNTER 03/13/2020 02:39:44 PM EDT BSS - [facility] [id number] [facility] [address] [place] [address] [phone]/ Carlyle Pate (Male) [id number] [place] 2 ED Dispo:ADMIT Chief Complaint: Respiratory Distress Diagnosis: Fever, unspecified fever cause [] At risk for sepsis [] Current P roviders: Attending: Jennyfer Ortega Y Consulting Provider: Christen Lares Nurse: Reanna Roland; Brian Green Tech: AbisaiGEMAN: [phone] [facility] t Group [id number] - [facility] MrnMRN: [id number] Print Group [id number] - [facility] Age SexDOB 1945 AGE 75 SEX Male Primary Care Provider: Edison Prajapati MD Phone: Ellergies: (No Known Allergies)Date Reviewed: 03/13/2020Reviewed by: Sharlene Roland - Review Marcial Espinosa Provider Notes: No notes of this type exist for this encounter.ED Orders IVT11 SALINE LOCK IV [#[id number]] Priority: STAT Class: Hospital Performed Standing Order Information Remain ing Occurrences:0/1 Interval:ONE TIME Last released:03/13/2020 Released orders : WedMarch 13, 2020 10:32 AM by: MIKE ORTEGA IVT11 SALINE LOCK IV [#[id number]] Priority: STAT Class: Hospital Performed Released on: 03/13/2020 10:32 AM SODIUM CHL ORIDE 0.9 % IV [#[id number]] Priority: STAT Class: Normal PIPERACILLIN-TAZOBACTAM 4.5 GR AM IVP* [#[id number]] Priority: STAT Class: Normal Antibiotic Indications -> Pneumonia (HAP) AMLODIPINE 10 MG TAB [#[id number]] Priority: Routine Class: Historical Med ESCITALO PRAM 10 MG TAB [#[id number]] Priority: Routine Class: Historical Med ACETAMINOPHEN 3 25 MG TABLET [#[id number]] Priority: STAT Class: Normal SODIUM CHLORIDE 0.9% BOLUS IV [#[id number]] Priority: STAT Class: Normal VANCOMYCIN 1 GRAM IVPB ADD-VANTAGE [#[id number]] Priority: STAT Class: Normal Antibiotic Indications -> Sepsis of Unknown Etiology FAMOTIDINE 20 MG TAB [#[id number]] Priority: Routine Class: Historical Med GABAPENTIN 100 MG CAP [#[id number]] Priority: Routine Class: Historical Med LEVOTHYROXINE 2 00 MCG TAB [#[id number]] Priority: Routine Class: Historical Med MELATONIN 5 MG CAP [#[id number]] Priority: Routine Class: Historical Med SENNOSIDES 17.2 MG TABLET [#[id number]] Priority: Routine Class: Historical Med LOSARTAN 100 MG TAB [#[id number]] Priority: Routine Class: Historical Med DOXAZOSIN 1 MG TAB [#[id number]] Priority: Routine Class: Historical Med ASCORBIC ACID 5 00 MG TAB [#[id number]] Priority: Routine Class: Historical Med CHLORHEXIDINE G LUCONATE 0.12 % MOUTH* [#[id number]] Priority: Routine Class: Historical Med DOCUSATE SODIUM 100 MG CAP [#[id number]] Priority: Routine Class: Historical Med DOCUSATE SODIUM -BENZOCAINE RE [#[id number]] Priority: Routine Class: Historical Med MULTIVITAMIN TA B [#[id number]] Priority: Routine Class: Historical Med NYSTATIN 100,00 0 UNIT/G TOPICAL CREAM [#[id number]] Priority: Routine Class: Historical Med POLYETHYLENE GL YCOL 3350 17 GRAM (10* [#[id number]] Priority: Routine Class: Historical Med SENNA [#[id number]] Priority: Routine Class: Historical Med ERGOCALCIFEROL (VITAMIN D2) 50,000 U* [#[id number]] Priority: Routine Class: Historical Med ALBUTEROL IN [#[id number]] Priority: Routine Class: Historical Med ASPIRIN 325 MG TAB [#[id number]] Priority: Routine Class: Historical Med ATORVASTATIN 40 MG TAB [#[id number]] Priority: Routine Class: Historical Med BISACODYL 5 MG TABLET [#[id number]] Priority: Routine Class: Historical Med ENOXAPARIN 40 M G/0.4 ML SUB-Q SYRINGE [#[id number]] Priority: Routine Class: Historical Med POTASSIUM BICAR BONATE-CITRIC ACID 20* [#[id number]] Priority: Routine Class: Historical Med FLUTICASONE PRO PIONATE IN [#[id number]] Priority: Routine Class: Historical Med ALPRAZOLAM 0.25 MG TAB [#[id number]] Priority: Routine Class: Historical Med TRAMADOL 50 MG TAB [#[id number]] Priority: Routine Class: Historical Med ACETAMINOPHEN 3 25 MG TABLET [#[id number]] Priority: Routine Class: Historical Med NOREPINEPHRINE BITARTRATE 1 MG/ML IV [#[id number]] Priority: STAT Class: Normal NOREPINEPHRINE 8 MG/250 ML INFUSION [#[id number]] Priority: STAT Class: Normal Titrate Infusion? -> Yes Initial Infusion Rate: -> 0. 5 mcg/min Titrate Every 2-5 Minutes In Increments of: -> 1 mcg/min Goal of Therapy is: -> MAP greater th an 65 mmHg Contact Physician for: - > Patient is not achieving goal and is at max rate SODIUM CHLORIDE 0.9 % IV [#[id number]] Priority: STAT Class: Normal NOREPINEPHRINE 8 MG/250 ML INFUSION [#[id number]] Priority: STAT Class: Normal Titrate Infusion? -> Yes Initial Infusion Rate: -> Other Other (mcg/min): -> 8mcg/min Titrate Every 2-5 Minutes In Increments of: -> 2 mcg/min Goal of Therapy is: -> MAP greater than 65 mmHg Contact Physician for: -> Patient is not achieving goal and is at max rate SODIUM CHLORIDE 0.9 % I J SYRG [#[id number]] Priority: STAT Class: Normal ACETAMINOPHEN 650 MG RECTAL SUPPOSIT* [# [id number]] Priority: STAT Class: Normal ONDANSETRON IVPB [#[id number]] Priori ty: STAT Class: Normal ONDANSETRON (PF) 4 MG/2 ML INJECTION [#[id number]] Priority: STAT Class: N ormal VANCOMYCIN IVPB < 1.5 GM [#[id number]] Priority: STAT Class: Normal Antib iotic Indications -> Sepsis of Unknown Etiology PIPERACILLIN-TAZOBACTAM 3.375 GRAM I* [# [id number]] Priority: STAT Class: Normal Antibiotic Indications -> Sepsis of Unknown Etiology [id number] METABOLIC PANEL, COMPREHENSIVE [#[id number]] Priority: STAT Class: ER Collect Standing Order Info rmation Remaining Occurrences:0/1 Interval:ONE TIME Last released:03/13/2020 Released o rders: WedMarch 13, 2020 10:32 AM by: MIKE ORETGA [id number] LIPASE [# [id number]] Priority: STAT Class: ER Collect Standing Order Information Remaining Occurrences:0 /1 Interval:ONE TIME Last released:03/13/2020 Released orders: WedMarch 13, 2020 10:32 AM by: MIKE ORTEGA [id number] CBC WITH AUTOMATED DIFF [#[id number]] Priority: STAT Clas s: ER Collect Standing Order Information Remaining Occurrences:0/1 Interval:ONE TI ME Last released:03/13/2020 Released orders: WedMarch 13, 2020 10:32 AM by: MIKE ORTEGA L [id number] PROTHROMBIN TIME + INR [#[id number]] Priority: STAT Class: ER Collect Standing Orde r Information Remaining Occurrences:0/1 Interval:ONE TIME Last released:03/13/2020 Relea sed orders: WedMarch 13, 2020 10:32 AM by: MIKE ORTEGA [id number] PTT [ #[id number]] Priority: STAT Class: ER Collect Specimen Source: Blood Standing Order Information Remain ing Occurrences:0/1 Interval:ONE TIME Last released:03/13/2020 Released orders : WedMarch 13, 2020 10:32 AM by: MIKE ORTEGA [id number] TROPONIN I [#[id number] ] Priority: STAT Class: ER Collect Standing Order Information Remaining Occurrences:0/1 Inter douglas:ONE TIME Last released:03/13/2020 Released orders: WedMarch 13, 2020 10:32 AM by: RITO ORTEGA [id number] URINALYSIS W/ RFLX MICROSCOPIC [#[id number]] Priority: STAT Class: ER Collect Sta nding Order Information Remaining Occurrences:0/1 Interval:ONE TIME Last released:0 03/13/2020 Released orders: WedMarch 13, 2020 10:32 AM by: MIKE ORTEGA [id number] LACTIC ACID [#[id number]] Priority: STAT Class: ER Collect Standing Order Information Remainin g Occurrences:0/1 Interval:ONE TIME Last released:03/13/2020 Released orders : WedMarch 13, 2020 10:32 AM by: MIKE ORTEGA [id number] METABOLIC PANEL, COMPREHENSIVE [# [id number]] Priority: STAT Class: ER Collect Specimen Source: Plasma Specimen Collected: 03/13/2020 10:40 AM Resulting Agency: [facility] Test ID: MPL Released on: 03/13/2020 10:32 AM [id number] 3 LIPASE [#[id number]] Priority: STAT Class: ER Collect Specimen Source: Plas ma Specimen Collected: 03/13/2020 10:40 AM Resulting Agency: [facility] Test ID: HLPSE Released on: 03/13/2020 10:32 AM [id number] CBC WITH AUTOMATED DIFF [#[id number]] Prior ity: STAT Class: ER Collect Specimen Source: Whole Blood Specimen Collected: 03/13/2020 10:40 AM Resultin g Agency: [facility] Test ID: CBCXA Released on: 03/13/2020 10:32 AM [id number] PROTHR OMBIN TIME + INR [#[id number]] Priority: STAT Class: ER Collect Specimen Source: Plasma Specim en Collected: 03/13/2020 10:40 AM Resulting Agency: [facility] Test ID: APTHR R eleased on: 03/13/2020 10:32 AM [id number] PTT [#[id number]] Priority: STAT Cl ass: ER Collect Specimen Source: Plasma Specimen Collected: 03/13/2020 10:40 AM Resulting Agency: [facility] Test ID: APTT Released on: 03/13/2020 10:32 AM [id number] TROPONIN I [#[id number]] Priority: STAT Class: ER Collect Specimen Source: Plasma Specimen Collected: 03/01 10:40 AM Resulting Agency: [facility] Test ID: TROIP Released on: 0 10:32 AM [id number] URINALYSIS W/ RFLX MICROSCOPIC [#[id number]] Priority: STAT Class: ER Collect Spec imen Source: Urine Specimen Collected: 03/13/2020 10:50 AM Resulting Agency: [facility] RY Test ID: UA Released on: 03/13/2020 10:32 AM [id number] LACTIC ACID [#[id number]] Priority: STAT Class: ER Collect Specimen Source: Plasma Specimen Collected: 03/13/2020 10:50 AM Resultin g Agency: [facility] Test ID: LAC Released on: 03/13/2020 10:32 AM [id number] URINE MICROSCOPIC [#[id number]] Priority: Routine Class: ER Collect Resulting Agency: [facility] Test ID: UMIC Standing Order Information Remaining Occurrences:0/1 Released orders: WedMarch 13, 2020 10:50 AM by: Automatic Batch Process [id number] URINE MICROSCOPIC [#[id number]] Priority: Routine Class: ER Collect Specimen Source: Urine Specimen Collected: 03/13 10:50 AM Resulting Agency: [facility] Test ID: UMIC Released on: 03/13/2020 10:50 AM [id number] VENOUS BLOOD GAS [#[id number]] Priority: STAT Class: ER Collect Sta nding Order Information Remaining Occurrences:0/1 Interval:ONE TIME Last released:0 03/13/2020 Released orders: WedMarch 13, 2020 12:26 PM by: REBECCA GREEN [id number] VENOUS BLO OD GAS [#[id number]] Priority: STAT Class: ER Collect Released on: 03/13/2020 12:26 PM [id number] BLOOD GAS, VENOUS [#[id number]] Priority: Routine Class: ER Collect Re sulting Agency: [facility] Test ID: VBG Standing Order Information Remainin g Occurrences:0/1 Released orders: WedMarch 13, 2020 12:25 PM by: Automatic Batch Process [id number] BLOOD GAS, VENOUS [#[id number]] Priority: Routine Class: ER Collect Specimen Source: Veno us blood Specimen Collected: 03/13/2020 12:25 PM Resulting Agency: [facility] Test ID: VBG Released on: 03/13/2020 12:25 PM [id number] CBC WITH AUTOMATED DIFF [#[id number]] Priority: Routine Class: ER Collect Standing Order Information Remaining Occurrences:3/3 Interval:DAILY [id number] METABOLIC PANEL, COMPREHENSIVE [#[id number]] Priority: Routine Class: ER Collect Standing O rder Information Remaining Occurrences:3/3 Interval:DAILY [id number] LACTIC ACID [#[id number]] Priority: STAT Class: ER Collect Standing Order Information Remaining Occurre nces:0/1 Interval:ONE TIME Last released:03/13/2020 Released orders: WedMarch 13, 2020 1:28 PM by: CHIQUITA VELAZQUEZ [id number] LACTIC ACID [#[id number]] Priority: STAT Clas s: ER Collect Resulting Agency: [facility] Test ID: LAC Released on: 03/13/2020 1:28 PM [id number] VANCOMYCIN, TROUGH [#[id number]] Priority: Timed Class: ER Collect St anding Order Information Remaining Occurrences:1/ Interval:ONE TIME [id number] EKG, 12 LEAD , INITIAL [#[id number]] Priority: STAT Class: Hospital Performed Standing Order Information Remaining Occurrences:0/1 Interval:ONE TIME Last released:03/13/2020 Released orders : WedMarch 13, 2020 10:32 AM by: MIKE ORTEGA Reason for Exam: -> Abdominal Pain [id number] EKG, 1 2 LEAD, INITIAL [#[id number]] Priority: STAT Class: Hospital Performed Specimen Collected : 03/13/2020 10:28 AM Resulting Agency: [facility] Test ID: [id number] Reason for Exam: -> Abdominal Pain Re leased on: 03/13/2020 10:32 AM [id number] CULTURE, URINE [#[id number]] Priority: STAT Cla ss: ER Collect Specimen Source: Cath Urine Standing Order Information Remaining Occurrences:0/1 Interval:ONE TIME Last released:03/13/2020 Released orders: WedMarch 13, 2020 10:32 AM by: MIKE GAYLE Reason for Culture -> Other Other, please explain -> fever [id number] CULTURE, BLOOD [#[id number]] Priority: STAT Class: ER Collect Specimen Source: Blood Standing Order Informat ion Remaining Occurrences:0/1 Interval:ONE TIME Last released:03/13/2020 Released orders : WedMarch 13, 2020 10:32 AM by: MIKE ORTEGA [id number] CULTURE, BLOOD [#[id number] ] Priority: STAT Class: ER Collect Specimen Source: Blood Standing Order Information Remainin g Occurrences:0/1 Interval:ONE TIME Last released:03/13/2020 Released orders : WedMarch 13, 2020 10:32 AM by: MIKE ORTEGA [id number] CULTURE, URINE [#[id number] ] Priority: STAT Class: ER Collect Specimen Source: Cath Urine Specimen Collected: 03/13/2020 10:50 AM Resulting Agency: [facility] Test ID: MODEL [employer]' Reason for Culture -> Other Other, please explain -> fever Released on: 03/13/2020 10:32 AM [id number] CULTURE, BLOOD [# [id number]] Priority: STAT Class: ER Collect Specimen Source: Blood Specimen Collected: 03/13/2020 10:20 AM Resulting Agency: [facility] Test ID: HBCS Released on: 03/13/2020 10:32 AM [id number] 3 CULTURE, BLOOD [#[id number]] Priority: STAT Class: ER Collect Specimen Source: Bloo d Specimen Collected: 03/13/2020 10:40 AM Resulting Agency: [facility] Test ID: HBCS Released on: 03/13/2020 10:32 AM [id number] COVID-19, C[employer] SALES [employer]OR [#[id number]] Canceled Priority: STAT Class: ER Collect Canceled by [facility]HEL[facility] IN [facility] on WedMarch 13, 2020 1:41 PM Reason : Other Comment: DUPLICATE REQUEST Standing Order Information Remaining Occurrences:0/1 I nterval:ONE TIME Last released:03/13/2020 Released orders: WedMarch 13, 2020 1:03 PM by: SURESH FARAH Comment:recommended By Infections Disease dept. 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 Released on: 03/13/2020 1:03 PM [id number] CULTURE, RESPIRATORY/SPUTUM/BRONCH W* [#[id number] ] Priority: STAT Class: ER Collect Specimen Source: Transtracheal Aspirate Standing Order Information Remaining Occurrences:0/1 Interval:ONE TIME Last released:03/13/2020 Released orders : WedMarch 13, 2020 1:30 PM by: CHIQUITA VELAZQUEZ [id number] CULTURE, RESPIRATORY/SPUTUM/BRONCH W* [#[id number] ] Priority: STAT Class: ER Collect Specimen Source: Transtracheal Aspirate Resulting Agency: [facility] Test ID: HRESC Released on: 03/13/2020 1:30 PM [id number] PRE-SURGICAL COVID PCR [#[id number]] Priority: Routine Class: ER Collect Resulting Agency: [facility] Test ID: XPLCVB Standing Order Information Remaining Occurrences:0/1 Released orders: WedMarch 13, 2020 1:15 PM by: Automatic Batch Process [id number] PRE-SURGICAL COVID PCR [#[id number]] Priority: Routine Class: ER Collect Specimen Collected: 03/13/2020 1:15 PM Rebecain ashley Agency: [facility] Test ID: XPLCVB Released on: 03/13/2020 1:15 PM [id number] PORT [#[id number]] Priority: STAT Class: Hospital Performed Standing Order Inf ormation Remaining Occurrences:0/1 Interval:ONE TIME Last released:03/13/2020 Released o rders: WedMarch 13, 2020 10:32 AM by: MIKE ORTEGA Reason for Exam -> respiratory [id number] PORT [#[id number]] Priority: STAT Class: Hospital Performed Specimen Collected : 03/13/2020 11:26 AM Resulting Agency: [facility] Test ID: [id number] Reason for Exam -> respiratory Re leased on: 03/13/2020 10:[id number] HEAD WO CONT [#[id number]] Priority: STAT Cla ss: Hospital Performed Standing Order Information Remaining Occurrences:0/1 Interval:ONE TI ME Last released:03/13/2020 Released orders: WedMarch 13, 2020 2:04 PM by: LARRY GREEN Reason for Exam -> AMS [id number] CT HEAD WO CONT [#[id number]] Priority: STAT C lass: Hospital Performed Specimen Collected: 03/13/2020 2:25 PM Resulting Agency: [facility] Test ID : [id number] Reason for Exam -> AMS Released on: 03/13/2020 2:04 PM [id number] CENTRAL VENOUS LINE INSERTION [#[id number]] Priority: STAT Class: Clinic Performed Standing Order Information Sissyin g Occurrences:0/1 Last released:03/13/2020 Released orders: WedMarch 13, 2020 12:30 PM by: TYE JON Comment:This order was created via procedure documentation [id number] Central Line [#[id number]] Priority: STAT Class: Clinic Performed Comment:This order was crea roby via procedure documentation Released on: 03/13/2020 12:30 PM NAKITA SEVERE SEPSIS AND SEPTIC SHOCK [facility] * [#[id number]] Priority: STAT Class: Hospital Performed Standing Order Information Remaining Occurre nces:0/1 Interval:CONTINUOUS Last released:03/13/2020 Released orders: WedMarch 13 0 1:25 PM by: CHIQUITA VELAZQUEZ SEVERE SEPSIS AND SEPTIC SHOCK [facility]* [#[id number]] Priority: STAT C lass: Hospital Performed Released on: 03/13/2020 1:25 PM MD8 ANTICOAGULANT THERAPY IS CONTRAINDIC* [# [id number]] Priority: STAT Class: Hospital Performed Standing Order Information Remaining Occurrences:0 /1 Interval:CONTINUOUS Last released:03/13/2020 Released orders: WedMarch 13, 2020 1:28 PM by: CHIQUITA VELAZQUEZ Comment:Oozing from central line insertion site MD8 ANTICOAGULANT T HERAPY IS CONTRAINDIC* [#[id number]] Priority: STAT Class: Hospital Performed Comment:Oozing from central line insertion site Released on: 03/13/2020 1:28 PM [id number] INITIAL PHYSICIAN ORDER: INPATIENT [# [id number]] Priority: Routine Class: ADT Pend Transfer Standing Order Information Remaining Occurre nces:0/1 Interval:ONE TIME Last released:03/13/2020 Released orders: WedMarch 13, 2020 12:34 PM by: CLAUDIA SINGH Status: -> INPATIENT Inpatient Hospitalization Certified Annamarie dudley for the Following Reasons -> 4- . P- a- t- i- e- n- t r- e- q- u- i- r- e- s I- C- U l- e- v- e- l o- f c- a- r- e i- n- t- e- r- v- e- n- t- i - o- n- s (- f- u- r- t- h- e- r c- l- a- r- i- f- i- c- a- t- i- o- n i- n H- &- P d- o- c- u- m- e- n- t- a- t- i- o- n- ) Admitting Diagnosis -> Septic shock (HCC) Admitting Physician -> CHIQUITA VELAZQUEZ Attending Physician -> CHIQUITA VELAZQUEZ Estimated Length of Stay -> 3-4 Midnights Discharge Plan: -> Home w ith Office Follow-up [id number] INITIAL PHYSICIAN ORDER: INPATIENT [#[id number]] Priority: Routine Class : ADT Pend Transfer Status: -> INPATIENT Inpatient Hospitalization Certified Necessary for the Following Reasons -> 4- . P- a - t- i- e- n- t r- e- q- u- i- r- e- s I- C- U l- e- v- e- l o- f c- a- r- e i- n- t - e- r- v- e- n- t- i- o- n- s (- f- u- r- t- h- e- r c- l- a- r- i- f- i- c- a- t- i- o- n i- n H- &- P d- o- c- u- m- e- n- t- a- t- i- o- n- ) Admitting Diagnosis -> Septic shock (HCC) Admitting Physician -> CHIQUITA VELAZQUEZ Attending Physician -> CHIQUITA VELAZQUEZ Estimated Length of Stay -> 3-4 Midnights Discharge Plan: -> Home with Office Follow-up Released on: 03/13/2020 12:34 PM ISO10 DROPLET PLUS [#[id number]] Yesica ority: STAT Class: Hospital Performed Standing Order Information Remaining Occurrences:0/ Inter douglas:CONTINUOUS Last released:03/13/2020 Released orders: WedMarch 13, 2020 1:04 PM by: SURESH WRIGHT Comment:JENISE ISO10 DROPLET PLUS [#[id number]] Priority: STAT Class: Hospital Performed Comment:JENISE Released on: 03/13/2020 1:04 PM [id number] VITAL SIGNS [#[id number]] Priority: Routine Class: Hospital Performed Standing Order Information Remainin g Occurrences:0/1 Interval:EVERY HOUR Last released:03/13/2020 Released orders : WedMarch 13, 2020 1:25 PM by: CHIQUITA VELAZQUEZ [id number] STRICT I & O [#[id number] ] Priority: Routine Class: Hospital Performed Standing Order Information Remaining Occurrences:0 /1 Interval:CONTINUOUS Last released:03/13/2020 Released orders: WedMarch 13, 2020 1:25 PM by: CHIQUITA VELAZQUEZ [id number] NEUROLOGIC STATUS ASSESSMENT [#[id number]] Priority: Routine C lass: Hospital Performed Standing Order Information Remaining Occurrences:0/1 Interval:EVERY HOUR Last released:03/13/2020 Released orders: WedMarch 13, 2020 1:25 PM by: CHIQUITA VELAZQUEZ N [id number] NOTIFY PROVIDER: SPECIFY [#[id number]] Priority: STAT Class: Hospital Performed Stand ing Order Information Remaining Occurrences:0/1 Interval:CONTINUOUS Last released :03/13/2020 Released orders: WedMarch 13, 2020 1:25 PM by: CHIQUITA VELAZQUEZ Describe Order -> Noti fy provider within one hour to start vasopressors if patient is unable to maintain a MAP of g reater than or equal to 65 mmHg despite fluid resuscitation [id number] HEMODYNAMIC VANDANA TORING [#[id number]] Priority: STAT Class: Hospital Performed Standing Order Information Remaining Occurrences:0/1 Interval:CONTINUOUS Last released:03/13/2020 Released orders : WedMarch 13, 2020 1:25 PM by: CHIQUITA VELAZQUEZ Comment:In the event of persistent arterial hypotension after two hours of fluid resuscitation efforts, or initial lactate greater than or equal to 4 mmol/L (36 mg/dl) measure and record CVP and ScvO2 [id number] VITAL SIGNS [#[id number]] Priority: STAT Class: Hospital Performed Released on: 03/13/2020 1:25 PM [id number] STRICT I & O [#[id number]] Priority: STAT Class: Hospital Performed Released on: 03/13 1:25 PM [id number] NEUROLOGIC STATUS ASSESSMENT [#[id number]] Priority: STAT Class: H ospital Performed Released on: 03/13/2020 1:25 PM [id number] NOTIFY PROVIDER: SPECIFY [#[id number]] Priority: STAT Class: Hospital Performed Describe Order -> Notify provider within one hour to start vasopressors if patient is unable to maintain a MAP of greater than or e qual to 65 mmHg despite fluid resuscitation Released on: 03/13/2020 1:25 PM [id number] HEMODYNAMIC MONITORING [#[id number]] Priority: STAT Class: Hospital Performed Comment:In the event of persistent ar terial hypotension after two hours of fluid resuscitation efforts, or initial lactate greater than or equal to 4 mmol/L (36 mg/dl) measure and record CVP and ScvO2 Released on: 03/13/2020 1:25 P M [id number] APPLY/MAINTAIN SEQUENTIAL COMPRESSIO* [#[id number]] Priority: STAT Class: Hospital Performe d Standing Order Information Remaining Occurrences:0/1 Interval:CONTINUOUS Last released :03/13/2020 Released orders: WedMarch 13, 2020 1:28 PM by: CHIQUITA VELAZQUEZ [id number] APPLY/MAINTAIN SE QUENTIAL COMPRESSIO* [#[id number]] Priority: STAT Class: Hospital Performed Released on: 03/13/2020 1: 28 PM COD2 FULL CODE [#[id number]] Priority: STAT Class: Hospital Performe d Standing Order Information Remaining Occurrences:0/1 Interval:CONTINUOUS Last released :03/13/2020 Released orders: WedMarch 13, 2020 1:28 PM by: CHIQUITA VELAZQUEZ COD2 FULL CODE [#[id number]] Priority: STAT Class: Hospital Performed Released on: 03/13/2020 1: 28 PM CON54 IP CONSULT TO PULMONOLOGY [#[id number]] Priority: Routine Class: Hospital Perfo rmed Standing Order Information Remaining Occurrences:0/1 Interval:ONE TIME Last released: 03/13/2020 Released orders: WedMarch 13, 2020 1:30 PM by: CHIQUITA VELAZQUEZ Reason for Consult: -> septic shock on vent Did you call or speak to the consulting provider? -> No Consult To -> pulm Schedule When? -> TODAY CON54 IP CONSULT TO PULMONOLOGY [#[id number]] Priority: STAT Class : Hospital Performed Reason for Consult: -> septic shock on vent Did you call or speak to the consulting provider? -> No Consult To -> pulm Schedule When? -> TODAY Released on: 03/13/2020 1:30 PM CON5 IP CONSULT TO INFECTIOUS DISEASES [#[id number]] Priority: STAT Class: Hospital Performed Standing Or jon Information Remaining Occurrences:0/ Interval:ONE TIME Last released:03/13/2020 Rel eased orders: WedMarch 13, 2020 1:34 PM by: CHIQUITA VELAZQUEZ Reason for Consult: -> septic shock Did you call or speak to the consulting provider? -> No Consult To -> ID Schedule When? -> TODAY CON5 IP CONSULT TO INFECTIOUS DISEASES [#[id number]] Priority: STAT Class: Hospital Performed Reason f or Consult: -> septic shock Did you call or speak to the consulting provider? -> No Consult To -> ID Schedule When? -> TODAY Released on: 03/13/2020 1:34 Carlyle Scott MR#: [id number] * Rm: 276-01Ht: 5' 7" Wt: 250 lb Code: Full Code Iso: Droplet PlusDiagnosis:Sep tic shock (HCC) [A41.9, R65.21]Allergies: No Known Allergies -------- Current as of: 03/13/20 1439 GI=Given HE=Held IC=IV Comple roby NB=New Bag RC=Rate Change RE2=Restarted ST=Stopped ---------0.9% sodium chloride infusion #[id number] Ordered Dose: 100 mL/hr Route: IntraVENous Freq: CONTINUOUS Start Date: 03/13/20 Rate: 100 mL/hr Duration: Administration times (back 96 hours, ahe ad 96 hours): 03/13/20: 1114NB 1148HE -----piperacillin-tazobactam (ZOSYN) 4.5 g in 0.9% sodium chloride (M BP/A*#[id number] Admin Amount: 4.5 g Ordered Dose: 4.5 g Route: IntraVENous Freq: NOW Start Date: 03/13/20 Rate: 200 mL/hr Duration: 30 Minutes Administration pretty es (back 96 hours, ahead 96 hours): 03/13/20: 1113NB 1148IC -----acetaminophen (TYLENOL) tablet 975 mg #[id number] Admin Amount: 3 Tab (3 x 325 mg Tab) Ordered Dose: 975 mg Route: Per G Tube F req: NOW Start Date: 03/13/20 Administration times (back 96 hours, ahead 96 hours): : 1122GI -----sodium chloride 0.9 % bolus infusion 1,000 mL #[id number] Admin Amount: 1,000 mL Ordered Dose: 1,000 mL Route: IntraVENous Freq: ONCE Start Date: 03/13/20 Rate: 1,000 mL/hr Duration: 60 Minutes Administration pretty es (back 96 hours, ahead 96 hours): 03/13/20: 1148NB 1234IC -----vancomycin (VANCOCIN) 1,000 mg in 0.9% sodium chloride (MBP/ADV) 250 *#[id number] Admin Amount: 1,000 mg Ordered Dose: 1,000 mg Route: IntraVENous Freq: NOW Start Date: 03/13/20 Rate: 125 mL/hr Duration: 120 Minutes Administration ti mes (back 96 hours, ahead 96 hours): 03/13/20: 1147NB -----0.9% sodium chloride infusion 3,402 mL #[id number] Admin Amount: 3,402 mL Ordered Dose: 30 mL/kg x 113.4 kg Route: IntraVENous Freq: O NCE Start Date: 03/13/20 Administration times (back 96 hours, ahead 96 hours): 03/13/20: 12 Carlyle Soto MR#: [id number] * Rm: [id number]: 5' 7" Wt: 250 lb Code: Full Code Iso: Droplet PlusDiagnosis:Septic shock (HCC) [A41.9, R65.21]Allergies: No Known Allergies -------- Current as of: 03/13/20 1439 GI=Given HE=Held IC=IV Comple roby NB=New Bag RC=Rate Change RE2=Restarted ST=Stopped ---------NOREPINephrine (LEVOPHED) 8 mg in 5% dextrose 250mL (32 mcg/mL) infu*#[id number] Ordered Dose: 8 mcg/min Route: IntraVENous Freq: TITRATE Start Date: 03/13/20 Rate: 15 mL/hr Duration: Administration times (back 96 hours, ahe ad 96 hours): 03/13/20: 1302NB 1322RC 1333ST [id number] 1352RC -----sodium chloride (NS) flush 5-10 mL #[id number] Admin Amount: 5-10 mL Ordered Dose: 5-10 mL Route: IntraVENous Freq: NEEDED Start Date: 03/13/20 No administration times (back 96 hours, ahead 96 hours). ------acetaminophen (TYLENOL) suppository 650 mg #[id number] Admin Amount: 1 Suppository (1 x 650 mg Suppository) Ordered Dose: 650 mg Ro patricia: Rectal Freq: EVERY 4 HOURS NEEDED Start Date: 03/13/20 No administration times (back 96 hours, ahe ad 96 hours). ------ondansetron (ZOFRAN) injection 4 mg #[id number] Admin Amount: 2 mL = 4 mg of 4 mg/2 mL Ordered Dose: 4 mg Route: IntraVENo us Freq: EVERY 6 HOURS NEEDED Start Date: 03/13/20 No administration times (back 96 hours, e ad 96 hours). ------vancomycin (VANCOCIN) 1,250 mg in 0.9% sodium chloride 250 mL IVPB #[id number] Admin Amount: 1,250 mg Ordered Dose: 1,250 mg Route: IntraVENous Freq: EVERY 12 HOUR S Start Date: 03/13/20 Rate: 125 mL/hr Duration: 120 Minutes Administration ti mes (back 96 hours, ahead 96 hours): 03/13/20: 2300 03/14/20: 1100 2300 03/15/20: 1100 2300 03/16/20: 1100 23003/17/20: 1100Carlyle Pate MR#: [id number] * Rm: 276-01Ht: 5' 7" Wt: 250 lb Code: Full Code Iso: Droplet PlusDiagnosis:Septic shock ([facility]) [A41.9, R65.21]Allergies: No Known Allergies -------- Current as of: 03/13/20 1439 GI=Given HE=Held IC=IV Comple roby NB=New Bag RC=Rate Change RE2=Restarted ST=Stopped ---------piperacillin-tazobactam (ZOSYN) 3.375 g in 0.9% sodium chloride (MBP*#[id number] Admin Amount: 3.375 g Ordered Dose: 3.375 g Route: IntraVENous Freq: EVERY 8 HO URS Start Date: 03/13/20 Rate: 25 mL/hr Duration: 240 Minutes Administration ti mes (back 96 hours, ahead 96 hours): 03/13/20: 1900 03/14/20: 0300 1100 1900 03/15/20: 0300 1100 1900 03/16/20: 0300 1100 1900 03/17/20: 0300 1100 ED Current OP Medicationsam LODIPine (NORVASC) 10 mg tabletSi mg by Per G Tube route daily.Dispense Amount:Start Date:End Edward e:Doc. Provider: Adrien Jones MDescitalopram oxalate (LEXAPRO) 10 mg tabletSi mg by Per G Tube route mari dukeDispense Amount:Start Date:End Date:Doc. Provider: Adrien Jones MDfamotidine (PEPCID) 20 mg tabletSi mg by Per G Tube route two (2) times a day.Dispense Amount:Start Date:End Date:Doc. Provider: Adrien Jones MDgabapentin (NEURONTIN) 100 mg capsuleSi mg by Per G Tube route three (3) times daily.Dispense Amount:St art Date:End Date:Doc. Provider: Adrien Jones MDlevothyroxine (SYNTHROID) 200 mcg tabletSig:Take 200 mcg by mouth Daily (before breakfast).Dispense Amount:Start Date:End Date:Doc. Provider: Adrien Jones MDmelatonin 5 mg cap capsuleSig:Take 9 mg by mouth nightly.Dispense Amount:Start Date:End Date:Doc. Provider: Adrien Jones MDsenno sides 17.2 mg tabSi.2 mg by PEG Tube route daily.Dispense Amount:Start Date:End Date:Doc. Provider : Adrien Jones MDlosartan (COZAAR) 100 mg tabletSi mg by Per G Tube route daily.Dispense Amount:Start Date: nd Date:Doc. Provider: Adrien Jones MDdoxazosin (CARDURA) 1 mg tabletSi mg by Per G Tube route night ly.Dispense Amount:Start Date:End Date:Doc. Provider: Adrien Jones MDascorbic acid, vitamin C, (VITAMIN C) 500 mg tabletSi mg by Per G Tube route daily.Dispense Amount:Start Date:End Date:Doc. Provider: Adrien Jones MDchlorhexidine (PERIDEX) 0.12 % solutionSi mL by Swish and Spit route daily.Dispense Amount:Start Date: Date:Doc. Provider: Adrien Jones MDdocusate sodium (Colace) 100 mg capsuleSi mg by Per G Tube route da waqar.Dispense Amount:Start Date:End Date:Doc. Provider: Adrien Jones MDDOCUSATE SODIUM-BENZOCAINE RESig:Inser t 5 mL into rectum. Every 2 daysDispense Amount:Start Date:End Date:Doc. Provider: Adrien Jones MDmultivitamin (O NE A DAY) tabletSi Tab by Per G Tube route daily.Dispense Amount:Start Date:End Date:Doc. Provider: Adrien Jones MDnystatin (MYCOSTATIN) topical creamSig:Apply to affected area three (3) times daily.Dispense Amount:Start Da te:End Date:Doc. Provider: Adrien Jones MDpolyethylene glycol (MIRALAX) 17 gram packetSig:Take 17 g by mouth sheyla ly.Dispense Amount:Start Date:End Date:Doc. Provider: Adrien Jones MDSENNASi mg by PEG Tube route.Disp ense Amount:Start Date:End Date:Doc. Provider: Adrien Jones MDergocalciferol (Vitamin D2) 1,250 mcg (50,000 unit) capsuleSig:Take 50,000 Units by mouth.Dispense Amount:Start Date:End Date:Doc. Provider: Adrien Jones MDALBUTEROL INSig:Take 2 Puffs by inhalation four (4) times daily.Dispense Amount:Start Date:End Edward e:Doc. Provider: Adrien Jones MDaspirin (ASPIRIN) 325 mg tabletSi mg by PEG Tube route daily.Dispense Amount: Start Date:End Date:Doc. Provider: Adrien Jones MDatorvastatin (LIPITOR) 40 mg tabletSi mg by Per G Tube rout e daily.Dispense Amount:Start Date:End Date:Doc. Provider: Adrien Jones MDbisacodyL 5 mg tabSig:Insert 10 mg int o rectum nightly.Dispense Amount:Start Date:End Date:Doc. Provider: Adrien Jones MDenoxaparin (Lovenox) 40 m g/0.4 mLSi mg by SubCUTAneous route daily.Dispense Amount:Start Date:End Date:Doc. Provider: Adrien Jones MDpotassium bicarb-citric acid (EFFER- K) 20 mEq tabletSig:Take 20 mEq by mouth two (2) times a day.Dispense Am ount:Start Date:End Date:Doc. Provider: Adrien Jones MDFLUTICASONE PROPIONATE INSi [place] by Nasal route two (2) times a day.Dispense Amount:Start Date:End Date:Doc. Provider: Adrien Jones MDALPRAZolam (XANAX) 0.25 m g tabletSi.25 mg by Per G Tube route every eight (8) hours as needed for Anxiety.Dispense Amount:Start Date:E nd Date:Doc. Provider: Adrien Jones MDtraMADoL (ULTRAM) 50 mg tabletSi mg by Per G Tube route ever y six (6) hours as needed for Pain.Dispense Amount:Start Date:End Date:Doc. Provider: Adrien Jones MDaceta minophen (TYLENOL) 325 mg tabletSi mg by Per G Tube route every four (4) hours as needed for Pain.Dispense Am ount:Start Date:End Date:Doc. Provider: Adrien Jones MD ED Prescriptions None on FileFollow-up InformationFollow-up With:Claudia Singh MDDetails:Comm ents:Contact Info:Saad INTERIANO [phone] Name Value Range Interpretation Code Description Data [facility] rce(s) Supporting Document(s ) ID Date Data Source [id number] 03/13/2020 02:31:21 PM EDT [facility] CT HEAD WO CONTClinical data: AMSPriors: None.Technique: Multiple axial images were obtained from the skullbase to the verte xwithout administration of intravenous contrast. Sagittal and coronalreconstru ction was performed. Utilizing desk interviewer algorithm the examinationwas performed t o optimize imaging quality by utilizing the lowest possibleradiation dose.Findings: There is no evidence of intracranial hemorrhage, masses, acutecortical infarc tion, or midline shift. There are no extra-axial fluidcollections. There is no evidence of hydrocephalus. There is periventricularlow-attenuation particula rly within the left posterior frontoparietal lobesuggestive of small vessel ischemic change probably chronic. There is an oldright posterior parietal encephalomal acia with small dystrophic calcificationconsistent with a remote in farction. Vascular calcifications noted. Sulcalprominence suggestive of brain par enchymal volume loss. The bony calvarium shows no evidence of fracture or destruc tive bony process.IMPRESSION: Left periventricular hypoattenuation suggesti ve of small vesselischemic change probably chronic. 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 Noevidence of hemorrhage. Should clinical concern persists then considerf ollow-up MRI. Signing date/time: 03/13/2020 2:31 PMSigned by: JUAN ACEVEDO Name Value Range Interpretation Code Description Data [facility] rce(s) Supporting Document(s ) ID Date Data Source [id number] 03/13/2020 01:52:29 PM EDT [facility] TRANSFER - OUT REPORT:Verbal report give n to stephanie (name) on Ednaa Pate being transferred toCCU(unit) for routine prog ression of careReport consisted of patient's Situation, Background, Assessment andRec ommendations(SBAR).Information from the following report(s) SBAR was reviewed wi th the receivingnurse.Lines:Triple Lumen 03/13/20 Right Femoral (Active)Central L ine Being Utilized Yes 03/13/2020 1:01 PMSite Assessment Clean, dry, & intact 0 1:01 PMInfiltration Assessment 0 03/13/2020 1:01 PMPeripheral IV 03/13/20 Left Ante cubital (Active)Opportunity for questions and clarification was provided.Patient trans ported with: MonitorO2 @ liters Name Value Range Interpretation Code Description Data Annabelle rce(s) Supporting Document(s ) ID Date Data Source [id number] 03/13/2020 08:35:09 PM EDT [facility] Name Value Range Interpretation Code Description Data Annabelle rce(s) Supporting Document(s ) NOLOINC JEFFREY [facility] Testing Performed by:YARELY Love [id number] REPORT FROM REFERENCE LAB ID Date Data Source [id number] 03/13/2020 12:57:32 PM EDT [facility] Pt BIBA from [facility] with Resp failure, at [facility] was given duoneb, ativan, morphineand placed on ventilator. Pt came in with a kelly, Gtube, and trach collar. InER pt placed on ventilator tolerating well 02 Sat 100 on vent. Ed provider andRT at bedside.only responds to painful stimuli line and labs drawn, antiboitic and bolus given. Bp 91/28.As per paper work from [facility] pt has had multiple covid test that are negative Name Value Range Interpretation Code Description Data Annabelle rce(s) Supporting Document(s ) ID Date Data Source [id number] 03/13/2020 12:55:45 PM EDT [facility] Pt BP is 97/67 map of 77 levophed held Name Value Range Interpretation Code Description Data Annabelle rce(s) Supporting Document(s ) ID Date Data Source [id number] 03/13/2020 12:43:24 PM EDT [facility] Central line placed by dr ortega. Positive blood return in all 3 lumens, venousblood gas sent. Levophed ordered Name Value Range Interpretation Code Description Data Annabelle rce(s) Supporting Document(s ) ID Date Data Source [id number] 03/13/2020 12:37:03 PM EDT [facility] Pt place on cooling blanket Name Value Range Interpretation Code Description Data Annabelle rce(s) Supporting Document(s ) ID Date Data Source [id number] 03/13/2020 12:35:11 PM EDT [facility] ED provider made aware of BP 52/38. Cent ral line ordered. Name Value Range Interpretation Code Description Data Annabelle rce(s) Supporting Document(s ) ID Date Data Source [id number] 03/13/2020 12:26:43 PM EDT [facility] Name Value Range Interpretation Description Data Sup porting Code Source(s) Document(s ) pH of Venous 7.40 7.32-7.4 [facility] - Good blood 3 [facility] Carbon dioxide 43 mmHg 38-54 [facility] - Good [Partial [facility] pressure] in Hospital Venous blood Oxygen 37 mmHg 25-40 [facility] - Good [Partial [facility] pressure] in Hospital Venous blood Carbon 28 22-26 Above high normal [facility] - Good dioxide, total mmol/L [facility] [Moles/volume] [facility] in Venous blood Bicarbonate 27 22-29 [facility] - Good [Moles/volume] mmol/L [facility] in Venous Hospital blood Oxygen 68 % [facility] - Good saturation in [facility] Venous blood Hospital Oxygen gas [facility] - Good flow Oxygen [facility] system Oxygen/Inspire 50.0 % [facility] - Good d gas [facility] system --on ventilator Ventilation [facility] - Good mode [facility] [Identifier] Hospital Ventilator PEEP 5 [facility] - Good Respiratory [facility] system Hospital Tidal volume 500 [facility] - Good setting [facility] Respiratory 14 [facility] - Good rate [facility] Service 9[address]63 [facility] - Good comment [facility] ID Date Data Source [id number] 03/13/2020 11:27:25 AM EDT [facility] XR CHEST PORTABLE-SINGLE VIEWPRIOR: None HISTORY: Limited to that provided by the emergency department at the time ofthis examination; BIBA from [facility] for res failurePt has trach collar and vented FINDINGS: Mi ld increased interstitial markings are identified bilaterallyconsistent with in filtrates. There is mild haziness of the costophrenic angle onthe left suggesting a small effusion. No right effusion is present. Atracheostomy is present and in good position-unchanged.The cardiac silhouette is at the upper limits of nor mal to mildly enlarged.There is a significant dorsal scoliotic curvature of the thorac ic spine.IMPRESSION:1. Mild increased interstitial margins bilaterally consist ent with infiltrates.2. Small left effusion.3. Upper limits of normal to mi ld cardiac enlargement. Signing date/time: 03/13/2020 11:27 AMSigned by: Latricia BLOUNT Name Value Range Interpretation Code Description Data Annabelle rce(s) Supporting Document(s ) ID Date Data Source [id number] 03/13/2020 11:17:11 AM EDT [facility] made aware of pt temp, tylenol to be order Name Value Range Interpretation Code Description Data Annabelle rce(s) Supporting Document(s ) ID Date Data Source [id number] 03/13/2020 10:53:46 AM EDT [facility] BIBA from [facility] for res failurePt has trac h collar and vented Name Value Range Interpretation Code Description Data Annabelle rce(s) Supporting Document(s ) ID Date Data Source [id number] 03/15/2020 07:45:01 AM EDT [facility] Name Value Range Interpretation Code Description Data Annabelle rce(s) Supporting Document(s ) Service [facility] >100,000COLONIES/mLKLEBSIELLA PNEUMONIAE ID Date Data Source [id number] 03/15/2020 07:45:01 AM EDT [facility] Name Value Range Interpretation Description Data Sup porting Code Source(s) Document(s ) Ampicillin 16 ug/mL Results entered -- [facility] - [Susceptibility] not verified Good by Minimum [facility] inhibitory Hospital concentration (ADIS) Piperacillin+Tazo Susceptible. [facility] - bactam Indicates for Good [Susceptibility] microbiology [facility] by Minimum susceptibilities Hospital inhibitory only. concentration (ADIS) Cefazolin Susceptible. [facility] - [Susceptibility] Indicates for Good by Minimum microbiology [facility] inhibitory susceptibilities Hospital concentration only. (ADIS) Ceftazidime Susceptible. [facility] - [Susceptibility] Indicates for Good by Minimum microbiology [facility] inhibitory susceptibilities Hospital concentration only. (ADIS) Ciprofloxacin Susceptible. [facility] - [Susceptibility] Indicates for Good by Minimum microbiology [facility] inhibitory susceptibilities Hospital concentration only. (ADIS) Levofloxacin Susceptible. [facility] - [Susceptibility] Indicates for Good by Minimum microbiology [facility] inhibitory susceptibilities Hospital concentration only. (ADIS) Gentamicin Susceptible. [facility] - [Susceptibility] Indicates for Good by Minimum microbiology [facility] inhibitory susceptibilities Hospital concentration only. (ADIS) Tobramycin Susceptible. [facility] - [Susceptibility] Indicates for Good by Minimum microbiology [facility] inhibitory susceptibilities Hospital concentration only. (ADIS) Nitrofurantoin 64 ug/mL Specimen in lab; [facility] - [Susceptibility] results pending Good by Minimum [facility] inhibitory Hospital concentration (ADIS) Trimethoprim+Sulf Susceptible. [facility] - amethoxazole Indicates for Good [Susceptibility] microbiology [facility] by Minimum susceptibilities Hospital inhibitory only. concentration (ADIS) Beta Susceptible. [facility] - lactamase.extende Indicates for Good d spectrum microbiology [facility] [Susceptibility] susceptibilities Hospit al only. Ampicillin+Sulbac 4 ug/mL Susceptible. [facility] - mulligan Indicates for Good [Susceptibility] microbiology [facility] by Minimum susceptibilities Hospital inhibitory only. concentration (ADIS) ID Date Data Source [id number] 03/13/2020 11:43:40 AM EDT [facility] Name Value Range Interpretation Description Data Sup porting Code Source(s) Document(s ) Color of Urine YEL [facility] - [facility] Appearance of CLEAR Abnormal (applies [facility] - Urine to non-numeric Good results) [facility] Specific gravity 1.015 1.005-1. [facility] - of Urine by 030 Good Refractometry [facility] pH of Urine by 8.0 4.6-8.0 [facility] - Test strip [facility] Protein NEG [facility] - [Mass/volume] in Good Urine by Test [facility] Glucose NEG [facility] - [Mass/volume] in Good Urine by [facility] Automated test [facility] strip Ketones NEG [facility] - [Presence] in Good Urine by [facility] Automated test [facility] strip Bilirubin.total NEG [facility] - [Presence] in Good Urine [facility] Hemoglobin NEG Abnormal (applies [facility] - [Presence] in to non-numeric Good Urine by Test results) [facility] Urobilinogen 0.2 0.2-1.0 [facility] - [Presence] in EU/dL Good Urine by [facility] test Hospital strip Nitrite NEG [facility] - [Presence] in Good Urine by [facility] test Hospital strip Leukocyte NEG Abnormal (applies [facility] - esterase to non-numeric Good [Presence] in results) [facility] Urine Hospital Automated test strip ID Date Data Source [id number] 03/13/2020 11:43:40 AM EDT [facility] - Good [facility] Name Value Range Interpretation Description Data Sup porting Code Source(s) Document(s ) Leukocytes [facility] - Good [Presence] in [facility] by Light microscopy Erythrocytes [facility] - Good [#/area] in [facility] by Microscopy high power field Epithelial cells [facility] - Good [#/area] in [facility] by Microscopy high power field Bacteria [facility] - Good [Presence] in [facility] by Light microscopy Crystals [facility] - Good [Presence] in [facility] by Light microscopy Granular casts [facility] - Good [Presence] in [facility] by Light microscopy ID Date Data Source [id number] 03/13/2020 11:28:11 AM EDT [facility] Value Range Interpretation Description Data Sup porting Code Source(s) Document(s ) Lactate 4.7 0.4-2.0 Above upper panic [facility] - Good [Moles/volu MMOL/L limits [facility]] in Hospital Serum or Plasma CALLED TO AND READ BACK BYREBECCA WILSON RN 03/13/20 1127AM LOUIS YU ID Date Data Source [id number] 03/15/2020 06:14:04 AM EDT [facility] Value Range Interpretation Code Description Data Annabelle rce(s) Supporting Document(s ) Service [facility] - Good comment [facility] GRAM NEGATIVE RODSONANAEROBIC BOTTLECALL ED TO AND READ BACK BYLIGIA BARRON RN,CCU,03/13/20 @ 2020 S ALYS[place] NAEROBIC BOTTLEGRAM NEGATIVE RODSKLEBSIELLA PNEUMONIAE: Refer to previous culture(s) for susceptibility results ID Date Data Source [id number] 03/13/2020 01:43:51 PM EDT [facility] Name Value Range Interpretation Description Data Sup porting Code Source(s) Document(s ) Leukocytes 3.8 K/uL 4.8-10.6 Below low normal [facility] - [#/volume] in Good Blood by [facility] Automated count Hospital Erythrocytes 2.97 4.70-6.0 Below low normal [facility] - [#/volume] in M/uL 0 Good Blood by [facility] Automated count [facility] Hemoglobin 8.6 g/dL 14.0-18. Below low normal [facility] - [Mass/volume] in 0 Good Blood [facility] Hematocrit 28.1 % 42.0-52. Below low normal [facility] - [Volume 0 Good Fraction] of [facility] Blood by Hospital Automated count Erythrocyte mean 94.6 FL 81.0-94. Above high normal [facility] - corpuscular 0 Good volume [Entitic [facility] volume] by Hospital Automated count Erythrocyte mean 29.0 PG 27.0-35. [facility] - corpuscular 0 Good hemoglobin [facility] [Entitic mass] Hospital by Automated count Erythrocyte mean 30.6 30.7-37. Below low normal [facility] - corpuscular g/dL [address] [facility] [Mass/volume] by Automated count Erythrocyte 17.2 % 11.5-14. Above high normal [facility] - distribution 0 Good width [Ratio] by [facility] Automated count Hospital Platelets 205 K/uL 130-400 [facility] - [#/volume] in Good Blood by [facility] Automated count Hospital Platelet mean 12.0 FL 9.2-11.8 Above high normal [facility] - volume [Entitic Good volume] in Blood [facility] by Automated Hospital count Nucleated 0.0 PER 0 [facility] - erythrocytes/100 100 WBC Good leukocytes [facility] [Ratio] in Blood [facility] Nucleated 0.00 0.0-0.01 [facility] - erythrocytes K/uL Good [#/volume] in [facility] Segmented 87 % 48.0-72. Above high normal [facility] - neutrophils/100 0 Good leukocytes in [facility] Band form 10 % 0 Above high normal [facility] - neutrophils/100 Good leukocytes in [facility] Blood by Manual Hospital count Lymphocytes/100 0 % 18.0-40. Below low normal [facility] - leukocytes in 0 [facility] Monocytes/100 1 % 2.0-12.0 Below low normal [facility] - leukocytes in [facility] Eosinophils/100 0 % 0.0-7.0 [facility] - leukocytes in [facility] Basophils/100 1 % 0.0-3.0 [facility] - leukocytes in [facility] Metamyelocytes/1 1 % 0 Above high normal [facility] - 00 leukocytes in [facility] Blood by Manual [facility] count Hospital Immature 0 % [facility] - granulocytes/100 Good leukocytes in [facility] Blood by Hospital Automated count Segmented 3.8 K/UL 2.3-7.6 [facility] - neutrophils Good [#/volume] in [facility] Lymphocytes 0.0 K/UL 0.9-4.2 Below low normal [facility] - [#/volume] in [facility] Monocytes 0.0 K/UL 0.1-1.7 Below low normal [facility] - [#/volume] in [facility] Eosinophils 0.0 K/UL 0.0-1.0 [facility] - [#/volume] in [facility] Basophils 0.0 K/UL [facility] - [#/volume] in [facility] Immature 0.0 K/UL [facility] - granulocytes Good [#/volume] in [facility] Blood by Hospital Automated count Erythrocyte [facility] - morphology Good finding [facility] [Identifier] in Hospital Blood Platelet [facility] - adequacy Good [Presence] in [facility] Blood by [facility] Hospital microscopy Differential [facility] - cell count Good method [facility] ID Date Data Source [id number] 03/13/2020 11:27:42 AM EDT [facility] Name Value Range Interpretation Description Data Sup porting Code Source(s) Document(s ) Troponin 0.07 0.00-0.05 Above upper panic [facility] - Good I.cardiac NG/ML limits [facility] [Mass/volume Hospital ] in Serum or Plasma CALLED TO AND READ BACK BYREBECCA WILSON RN 03/13/20 1127AM [facility](NOTE)The presence of detectable troponin above th e reference rangeindicates myocardial injury which may be due to ischemia,myocarditis , trauma, etc. Clinical correlation is necessary todetermine the significance o f this finding. Sequential testing isrecommended to determine if the typica l rise and fall of cTnI isdemonstrated. Note, cardiac troponin-I has a relatively long half-life and may be present well after the CK MB has returned tobaseline. cTnI r esults in the indeterminate/jacobs zone for myocardial infarction: 0.06 to 0.59 ng/mL cTnI cutoff/range of values consistent with myocardial infarctio n: 0.60 to 1.50 ng/mL ID Date Data Source [id number] 03/13/2020 11:17:43 AM EDT [facility] Value Range Interpretation Description Data Sup porting Code Source(s) Document(s ) aPTT in 20.0 SEC 21.0-28. Below low normal [facility] - Good Platelet poor 0 [facility] plasma by Hospital Coagulation assay Therapeutic Range = 42.0-60.0 secs ID Date Data Source [id number] 03/13/2020 11:17:43 AM EDT [facility] Value Range Interpretation Description Data Sup porting Code Source(s) Document(s ) Prothrombin 11.0 sec 9.4-11.1 [facility] - Good time (PT) [facility] INR in 1.1 0.8-1.2 [facility] - Good Platelet poor [facility] plasma by [facility] Coagulation assay ID Date Data Source [id number] 03/13/2020 11:15:43 AM EDT [facility] Value Range Interpretation Code Description Data Supporting Source(s) Document(s ) Lipase 116 U/L 73-393 [facility] - Good [Enzymatic [facility] activity/vo Hospital lume] in Serum or Plasma ID Date Data Source [id number] 03/13/2020 11:15:43 AM EDT [facility] Value Range Interpretation Description Data Sup porting Code Source(s) Document(s ) Sodium 138 136-145 [facility] - Good [Moles/volume] mmol/L [facility] in Serum or Hospital Plasma Potassium 4.2 3.5-5.1 [facility] - Good [Moles/volume] mmol/L [facility] in Serum or Hospital Plasma Chloride 105 98-107 [facility] - Good [Moles/volume] mmol/L [facility] in Serum or Hospital Plasma Carbon 27 21-32 [facility] - Good dioxide, total mmol/L [facility] [Moles/volume] Hospital in Serum or Plasma Anion gap in 11 10-20 [facility] - Good Serum or mmol/L [facility] Plasma Hospital Glucose 82 mg/dL 74-106 [facility] - Good [Mass/volume] [facility] in Serum or Hospital Plasma Urea nitrogen 25 mg/dL 7-18 Above high normal [facility] - Good [Mass/volume] [facility] in Serum or Hospital Plasma Creatinine 1.09 0.70-1.3 [facility] - Good [Mass/volume] mg/dL 0 [facility] in Serum or Hospital Plasma Glomerular >60 [facility] - Good filtration [facility] rate/1.73 sq M Hospital predicted among blacks [Volume Rate/Area] in Serum or Plasma by Creatinine-bas ed formula (MDRD) Glomerular >60 [facility] - Good filtration [facility] rate/1.73 sq M Hospital predicted among non-blacks [Volume Rate/Area] in Serum or Plasma by Creatinine-bas ed formula (MDRD) (NOTE)Estimated GFR is calculated using the Modification of Diet in RenalDisease (MDRD) Study equation, reported for both Americans(GFRAA) and non- Americans (GFRNA), and normalized to 1.7 8p9niid surface area. The physician must decide which value applies tothe patient . The MDRD study equation should only be used inindividuals age 18 or older. It has no t been validated for thefollowing: women, patients with serious comorbid co nditions,or on certain medications, or persons with extremes of body size,muscl e mass, or nutritional status. Calcium [Mass/volume] in 8.1 mg/dL 8.5-10.1 Below low normal [facility] - Good Serum or Plasma [facility] H[facility] ital Bilirubin.total 0.3 mg/dL 0.2-1.0 [facility] - Good [Mass/volume] in Serum or [facility] Plasma Alanine aminotransferase 11 U/L 13-61 Below low normal [facility] Good [Enzymatic activity/volume] [facility] in Serum or Plasma Aspartate aminotransferase 30 U/L 15-37 [facility] HS - Good [Enzymatic activity/volume] [facility] in Serum or Plasma by With P-5'-P Alkaline phosphatase 87 U/L 45-117 [facility] - G ood [Enzymatic activity/volume] [facility] in Serum or Plasma Protein [Mass/volume] in 6.6 g/dL 6.4-8.2 [facility] - Good Serum or Plasma [facility] ital Albumin [Mass/volume] in 2.4 g/dL 3.5-4.7 Below low normal [facility] Serum or Plasma by [facility] ospital Bromocresol purple (BCP) dye binding method Globulin [Mass/volume] in 4.2 g/dL 1.7-4.7 [facility] Serum by calculation [facility] Albumin/Globulin [Mass 0.6 0.7-2.8 Below low normal [facility] Ratio] in Serum or Plasma [facility] ID Date Data Source [id number] 03/13/2020 10:31:57 AM EDT [facility] Patient [facility]IB[facility] on [facility] from [facility] in respirat ory distress Placed on LTV with theirsettings of 500/14/+5\\50% VSS at this time. Name Value Range Interpretation Code Description Data Annabelle rce(s) Supporting Document(s ) ID Date Data Source [id number] 03/15/2020 06:12:20 AM EDT [facility] Name Value Range Interpretation Code Description Data Annabelle rce(s) Supporting Document(s ) Service [facility] GRAM NEGATIVE RODSonAEROBIC AND ANAEROBI C BOTTLESCALLED TO AND READ BACK BYLIGIA BARRON RN,CCU,03/13/20 @ 2020 Latricia Daily Bacteria identified in Abnormal (applies to [facility] Unspecified specimen by non-numeric results) Hospital Culture ID Date Data Source [id number] 03/15/2020 06:12:20 AM EDT [facility] Name Value Range Interpretation Code Description Data Supporting Source(s) Document(s ) Ampicillin Results entered -- [facility] - [Susceptibility] not verified Good by Minimum [facility] inhibitory Hospital concentration (ADIS) Cefazolin Susceptible. [facility] - [Susceptibility] Indicates for Good by Minimum microbiology [facility] inhibitory susceptibilities Hospital concentration only. (ADIS) Ceftazidime Susceptible. [facility] - [Susceptibility] Indicates for Good by Minimum microbiology [facility] inhibitory susceptibilities Hospital concentration only. (ADIS) Ciprofloxacin Susceptible. [facility] - [Susceptibility] Indicates for Good by Minimum microbiology [facility] inhibitory susceptibilities Hospital concentration only. (ADIS) Levofloxacin Susceptible. [facility] - [Susceptibility] Indicates for Good by Minimum microbiology [facility] inhibitory susceptibilities Hospital concentration only. (ADIS) Gentamicin Susceptible. [facility] - [Susceptibility] Indicates for Good by Minimum microbiology [facility] inhibitory susceptibilities Hospital concentration only. (ADIS) Trimethoprim+Sul Susceptible. [facility] - famethoxazole Indicates for Good [Susceptibility] microbiology [facility] by Minimum susceptibilities Hospital inhibitory only. concentration (ADIS) Beta Susceptible. [facility] - lactamase.extend Indicates for Good ed spectrum microbiology [facility] [Susceptibility] susceptibilities Hospit al only. Ampicillin+Sulba 4 ug/mL Susceptible. [facility] - ctam Indicates for Good [Susceptibility] microbiology [facility] by Minimum susceptibilities Hospital inhibitory only. concentration (ADIS) ID Date Data Source [id number] 03/13/2020 09:49:00 AM EDT [facility] ospital Name Value Range Interpretation Description Data Sup porting Code Source(s) Document(s ) C-REACTIVE 0.28 0.0-0.3 Normal (applies to [facility] PROTEIN INF mg/dL non-numeric Hospital results) ID Date Data Source [id number] 03/13/2020 09:49:00 AM EDT [facility] o[facility]ital Name Value Range Interpretation Description Data Sup porting Code Source(s) Document(s ) ERYTHROCYTE 60 mm/hr 0-20 Above high normal [facility] SEDIMENTATION Hospital RATE ID Date Data Source [id number] 03/13/2020 09:49:00 AM EDT [facility] o[facility]ital Name Value Range Interpretation Description Data Sup porting Code Source(s) Document(s ) WHITE 2.2 3.5-9.1 Below lower panic [facility] BLOOD 10(3)/uL limits Hospital COUNT SPOKE TO KATLIN THOMAS 1039 0READ BACK AND VERIFIEDRESULTS REPEATED AND VERIFIED RED BLOOD COUNT 3.16 10(6)/uL 4.30-5.60 Below low normal [facility] HEMOGLOBIN 9.3 g/dL 13.3-16.2 Below low normal [facility] HEMATOCRIT 29.1 % 38.8-46.4 Below low normal [facility] MEAN CORPUSCULAR VOLUME 92 fl 79-93 Normal (applies [facility] to non-numeric Hospital results) MEAN CORPUSCULAR 29 pg 27-32 Normal (applies [facility] HEMOGLOBIN to non-numeric Hospital results) MEAN CORPUSCULAR HGB 32 g/dl 32-36 Normal (applies [facility] CONC to non-numeric Hospital results) RED CELL DISTRIBUTION 17.1 % 0.0-14.5 Above high [facility] normal Hospital PLATELET COUNT 203 10(3)/uL 165-415 Normal (applies [facility] to non-numeric Hospital results) MEAN PLATELET VOLUME 11.1 fl 9.0-13.0 Normal (applies [facility] to non-numeric Hospital results) ID Date Data Source [id number] 03/13/2020 09:49:00 AM EDT [facility] o[facility]ital Name Value Range Interpretation Description Data Sup porting Code Source(s) Document(s ) TOTAL CELLS 100 [facility] NEUTROPHILS 74.0 % [facility] BAND 14.0 % [facility] LYMPHOCYTE 4.0 % [facility] VARIANT LYMPHS 0.0 % [facility] MONOCYTE 1.0 % [facility] EOSINOPHIL 0.0 % [facility] BASOPHIL 0.0 % [facility] METAMYELOCYTE 7.0 % [facility] MYELOCYTE % 0.0 % [facility] PROMYELOCYTE 0.0 % [facility] BLAST 0.0 % [facility] PLASMA CELL 0.0 % [facility] NEUTROPHILS 1.97 1.42-6.3 Normal (applies [facility] #MANUAL K/mm3 4 to non-numeric Hospital results) VACUOLES SEEN. IMMATURE GRANULOCYTE 0.16 K/mm3 0.00-0.45 Normal (applies to [facility] #MANUAL non-numeric results) Hospital LYMPH #MANUAL 0.09 K/mm3 0.71-4.53 Below low normal [facility] yes Hospital MONO #MANUAL 0.02 K/mm3 0.14-0.72 Below low normal [facility] EOS #MANUAL 0.00 K/mm3 0.00-0.54 Normal (applies to [facility] yes non-numeric results) Hospital BASO #MANUAL 0.00 K/mm3 0.00-0.18 Normal (applies to [facility] ay non-numeric results) Hospital PLATELETS COMMENT [facility] FEW PLATELET CLUMPS SEEN. INTERPRET WITH CAUTION. ANISOCYTOSIS SLIGHT [facility] Hospi manju ID Date Data Source [id number] 03/13/2020 09:49:00 AM EDT [facility]ital Name Value Range Interpretation Description Data Sup porting Code Source(s) Document(s ) LACTATE 4.3 0.4-2.0 Above upper panic [facility] VENOUS mmol/L limits Hospital SPOKE TO ASAD DAMON @ [facility] AN D VERIFIED ID Date Data Source [id number] 03/13/2020 09:49:00 AM EDT [facility] Name Value Range Interpretation Description Data Sup porting Code Source(s) Document(s ) BLOOD UREA 26 mg/dL 7-18 Above high normal [facility] NITROGEN [facility] CREATININE 1.02 0.70-1.3 Normal (applies [facility] mg/dL 0 to non-numeric Hospital results) SODIUM LEVEL 142 136-145 Normal (applies [facility] mmol/L to non-numeric Hospital results) POTASSIUM 3.8 3.5-5.1 Normal (applies [facility] LEVEL mmol/L to non-numeric Hospital results) BUN/CREATININE 25.4 12.0-20. Above high normal Arina H ayes RATIO 0 Hospital EST GLOMERULAR > 60.0 > 60 [facility] FILTRATION mL/min/ mL/min Hospital RATE GFR ESTIMATE MDRD Equation (Modification of Diet in RenalDisease). Reference range is >= 60mL/min/1.73m2 If patient is Afri can Citizen Of [place], multiply printed result by1.21NOTE: A calculated eGFR of <60 woods ggests chronic kidneydisease, but only if found consistently over at least 3months . A calculated result of <15 is consistent with renalfailure. CREATININE CLEARANCE CALC 58.00 mL/min > 60 mL/min [facility] Medication dose adjustment may be needed for CrCl< 60 mL/min.The estimated creatinine clearance (CRCL) is calculatedusing the Cockcroft-Gault (C-G) equation, which utilizesserum creatinine, gender, and jesus dy weight (Cockcroft DW,Gault MH. Prediction of creatinine clearance from serumcreati nine. Nephron 1976; 16(1):31-41). The C-G equationoverestimates GFR because of the tubular secretion ofcreatinine and the values are not adjusted for body-surface area.Please note that the C-G equation may be limited in thesetting of extremes of mus eusebio mass (e.g. obesity oratrophy),extremes of age, malnutrition, liver disease,advance d renal failure, and unstable renal function. ID Date Data Source [id number] 03/13/2020 09:48:00 AM EDT [facility] ospital X-RAY CHEST (03/13/2020) History: D esaturations. Technique: Frontal view of the chest. Comparison: 03/12/2020. Findings: There is a tracheostomy tube. Evaluation of left lung base is suboptim al due to rotation, scoliosis and underpenetration. There is improved aera tion of both lung bases since the prior exam. The cardiac silhouette is enlarged. There is a dextroscoliosis of the thoracic spine. IMPRESSION: No focal infiltr ate or effusion however evaluation left lung base is suboptimal. Consider follow-up e xam in the lateral view. Images read and reviewed by Harlan Sarabia MD on 2019. Name Value Range Interpretation Code Description Data Annabelle rce(s) Supporting Document(s ) ID Date Data Source [id number] 03/13/2020 09:32:00 AM EDT [facility] ospital What is the Source CLEAN CATCHIndication s for Urine Screen Leukocytosis What is the Source CLEAN CATCHIndication s for Urine Screen Leukocytosis Name Value Range Interpretation Description Data Sup porting Code Source(s) Document(s ) COLOR, URINE YELLOW STRAW [facility] APPEARANCE, CLOUDY CLEAR [facility] URINE [facility] GLUCOSE, NEG NEG [facility] URINE (UA) Hospital BILIRUBIN, NEG NEG [facility] KETONE, URINE NEG NEG [facility] UROBILINOGEN, 0.2 EU/dL 0.0-0.5 Normal (applies [facility] s URINE to non-[facility] Hospital results) SPECIFIC 1.015 1.001-1. Normal (applies [facility] GRAVITY,URINE 035 to non-[facility] Hospital results) OCCULT BLOOD 3+ NEG Abnormal (applies [facility] URINE to non-[facility] Hospital results) PH Urine 8.0 U 4.6-8.0 Normal (applies [facility] to non-[facility] Hospital results) PROTEIN, TRACE NEG Abnormal (applies [facility] URINE to non-[facility] Hospital results) NITRITE, NEG NEG [facility] URINE TRACE NEG Abnormal (applies [facility] LEUKOCYTE to [facility] Hospital ESTERASE results) ID Date Data Source [id number] 03/13/2020 09:32:00 AM EDT [facility] ospital What is the Source CLEAN CATCHIndication s for Urine Screen Leukocytosis What is the Source CLEAN CATCHIndication s for Urine Screen Leukocytosis Name Value Range Interpretation Description Data Sup porting Code Source(s) Document(s ) RBC, 40-50 0-3 [facility] URINE /HPF Hospital WBC, 1-3 /HPF 0-5 [facility] BACTERIA, MANY /HPF RARE-FEW [facility] ID Date Data Source [id number] 03/13/2020 12:00:00 AM EDT [facility] Name Value Range Interpretation Description Data Sup porting Code Source(s) Document(s ) 2019 Novel [facility] Coronavirus RNA This lab was ordered by [facility] Latricia palma and reported by [facility]. ID Date Data Source [id number] 03/12/2020 10:49:00 AM EDT [facility] ospital X-RAY CHEST (03/12/2020) Clinical In dication: Cough. Priors: None. Findings: Enlarged heart. There is a rig ht lower lobe pulmonary opacities which can be due to atelectasis or pneumonia. The left retrocardiac region is not defined to an enlarged heart, scoliosis and body habit us. Rest of the lungs are clear. No evidence of CHF or large pleural effusion. There is a ventriculostomy tube. IMPRESSION: Right basilar opacity which can be due t o pneumonia or atelectasis. The left lower lobe is not defined. Images read and reviewed by Juan Acevedo MD on 03/12/2020. Name Value Range Interpretation Code Description Data Annabelle rce(s) Supporting Document(s ) ID Date Data Source [id number] 03/12/2020 09:00:00 AM EDT [facility] o[facility]ital Room Air: [facility] Name Value Range Interpretation Description Data Sup porting Code Source(s) Document(s ) ARTERIAL 7.489 7.350-7. Above high normal [facility] BLOOD GAS pH 450 Hospital ART BLD 41.9 mmHg 35-45 Normal (applies [facility] to non-numeric Hospital PRESSURE CO2 results) ART BLD 68 mmHg 80-105 Below low normal [facility] Hospital PRESSURE O2 ARTERIAL 31.9 meq/L 22-26 Above high normal [facility] HCO3 ARTERIAL 8.0 -2.0-3.0 Above high normal [facility] BASE EXCESS ARTERIAL BLD 94.0 % 95-98 Below low normal [facility] O2 Hospital SATURATION MODALITY ROOM AIR [facility] ARTERIAL 21.0 % [facility] BLOOD [facility] FIO2 ARTERIAL LEFT RADIAL [facility] DRAW SITE MODIFIED POSITIVE [facility]'S TEST Hospital ID Date Data Source [id number] 03/12/2020 06:04:00 AM EDT [facility] Name Value Range Interpretation Description Data Sup porting Code Source(s) Document(s ) PROTHROMBIN 10.8 9.4-11.5 Normal (applies [facility] TIME (PATIENT) SECONDS to non-numeric Hospital results) INR 1.04 [facility] INR RANGE IS DIAGNOSIS SPECIFICINR VALUE S <1.5 ARE NON-THERAPEUTICFOR INR >1.5, CONSULT ORDERS ID Date Data Source [id number] 03/12/2020 06:04:00 AM EDT [facility] Name Value Range Interpretation Code Description Data Annabelle rce(s) Supporting Document(s ) GLUCOSE 102 mg/dL 74-100 Above high normal [facility] "Assay results affected by Sulfasalazine therapy. If thepatient is taking this drug, please contact the laboratory". BLOOD UREA NITROGEN 29 mg/dL 7-18 Above high normal [facility] CREATININE 0.75 mg/dL 0.70-1.30 Normal (applies to [facility] non-numeric results) SODIUM LEVEL 143 mmol/L 136-145 Normal (applies to [facility] non-numeric results) POTASSIUM LEVEL 3.1 mmol/L 3.5-5.1 Below low normal [facility] CHLORIDE LEVEL 105 mmol/L 98-107 Normal (applies to [facility] non-numeric results) CARBON DIOXIDE LEVEL 36 mmol/L 21-32 Above high normal [facility] ANION GAP 2 mmol/L 2-8 Normal (applies to [facility] non-numeric results) CALCULATED RESULT BUN/CREATININE RATIO 38.6 12.0-20.0 Above high [facility] EST GLOMERULAR > 60.0 > 60 mL/min [facility] FILTRATION RATE mL/min/ Hospital GFR ESTIMATE MDRD Equation (Modification of Diet in RenalDisease). Reference range is >= 60mL/min/1.73m2 If patient is Afri can Citizen Of [place], multiply printed result by1.21NOTE: A calculated eGFR of <60 woods ggests chronic kidneydisease, but only if found consistently over at least 3months . A calculated result of <15 is consistent with renalfailure. CREATININE CLEARANCE CALC 74.00 mL/min > 60 mL/min [facility] Medication dose adjustment may be needed for CrCl< 60 mL/min.The estimated creatinine clearance (CRCL) is calculatedusing the Cockcroft-Gault (C-G) equation, which utilizesserum creatinine, gender, and jesus dy weight (Cockcroft DW,Gault MH. Prediction of creatinine clearance from serumcreati nine. Nephron 1976; 16(1):31-41). The C-G equationoverestimates GFR because of the tubular secretion ofcreatinine and the values are not adjusted for body-surface area.Please note that the C-G equation may be limited in thesetting of extremes of mus eusebio mass (e.g. obesity oratrophy),extremes of age, malnutrition, liver disease,advance d renal failure, and unstable renal function. OSMOLALITY CALCULATED 291 280-301 Normal (applies to [facility] non-numeric results) CALCULATED RESULT ID Date Data Source [id number] 03/12/2020 06:04:00 AM EDT [facility] Name Value Range Interpretation Description Data Sup porting Code Source(s) Document(s ) CALCIUM 8.3 mg/dL 8.5-10.1 Below low normal [facility] Hospital ID Date Data Source [id number] 03/12/2020 06:04:00 AM EDT [facility] Name Value Range Interpretation Description Data Sup porting Code Source(s) Document(s ) PHOSPHOROUS 3.6 2.5-4.9 Normal (applies [facility] mg/dL to non-numeric Hospital results) ID Date Data Source [id number] 03/12/2020 06:04:00 AM EDT [facility] Name Value Range Interpretation Description Data Sup porting Code Source(s) Document(s ) MAGNESIUM 2.1 mg/dL 1.8-2.4 Normal (applies [facility] to non-numeric Hospital results) ID Date Data Source [id number] 03/12/2020 06:04:00 AM EDT [facility] Name Value Range Interpretation Description Data Sup porting Code Source(s) Document(s ) ALBUMIN 2.6 gm/dL 3.4-5.0 Below low normal [facility] BILIRUBIN,T 0.2 mg/dL 0.2-1.0 Normal (applies to [facility] non-numeric Hospital results) AST/SGOT 19 U/L 15-37 Normal (applies to [facility] results) "Assay results affected by Sulfasalazine therapy. If thepatient is taking this drug, please contact the laboratory". ALT/SGPT 13 U/L 16-63 Below low normal [facility] "Assay results affected by Sulfasalazine therapy. If thepatient is taking this drug, please contact the laboratory". ID Date Data Source [id number] 03/12/2020 06:04:00 AM EDT [facility] Name Value Range Interpretation Description Data Sup porting Code Source(s) Document(s ) PREALBUMIN 24.7 18.0-35.7 Normal (applies to [facility] mg/dL1 non-numeric Hospital results) ID Date Data Source [id number] 03/12/2020 06:04:00 AM EDT [facility] Name Value Range Interpretation Description Data Sup porting Code Source(s) Document(s ) ALKALINE 75 u/l 46-116 Normal (applies to [facility] PHOSPHATASE non-numeric Hospital results) ID Date Data Source [id number] 03/12/2020 06:04:00 AM EDT [facility] Name Value Range Interpretation Description Data Sup porting Code Source(s) Document(s ) WHITE BLOOD 5.8 3.5-9.1 Normal (applies [facility] COUNT 10(3)/uL to non-numeric Hospital results) RED BLOOD COUNT 3.03 4.30-5.[address] [facility] ayes 10(6)/uL 0 Hospital HEMOGLOBIN 8.8 g/dL 13.3-16. Below low normal [address] HEMATOCRIT 28.2 % 38.8-46. Below low normal [address] MEAN 93 fl 79-93 Normal (applies [facility] CORPUSCULAR to non-numeric Hospital VOLUME results) MEAN 29 pg 27-32 Normal (applies [facility] CORPUSCULAR to non-numeric Hospital HEMOGLOBIN results) MEAN 31 g/dl 32-36 Below low normal [facility] CONC RED CELL 17.0 % 0.0-14.5 Above high normal [facility] Hospital WIDTH PLATELET COUNT 217 165-415 Normal (applies [facility] es 10(3)/uL to non-numeric Hospital results) MEAN PLATELET 11.5 fl 9.0-13.0 Normal (applies [facility] VOLUME to non-numeric Hospital results) NEUTROPHILS % 74.9 % [facility] IMMATURE 0.3 % [facility] GRANULOCYTE % Hospital LYMPH % 9.1 % [facility] MONO % 8.0 % [facility] EOS % 7.0 % [facility] BASO % 0.7 % [facility] NEUTROPHILS # 4.37 1.42-6.3 Normal (applies [facility] s 10(3)/uL 4 to non-numeric Hospital results) IMMATURE 0.02 0.00-0.4 Normal (applies [facility] GRANULOCYTE # 10(3)/uL 5 to non-numeric Hospital results) LYMPH # 0.53 0.71-4.5 Below low normal [facility] 10(3)/uL 3 Hospital MONO # 0.47 0.14-0.7 Normal (applies [facility] 10(3)/uL 2 to non-numeric Hospital results) EOS # 0.41 0.00-0.5 Normal (applies [facility] 10(3)/uL 4 to non-numeric Hospital results) BASO # 0.04 0.00-0.1 Normal (applies [facility] 10(3)/uL 8 to non-numeric Hospital results) ID Date Data Source [id number] 03/11/2020 03:00:00 PM EDT [facility] What is the Source CLEAN CATCHIndication s for Urine Screen Leukocytosis What is the Source CLEAN CATCHIndication s for Urine Screen Leukocytosis Name Value Range Interpretation Description Data Sup porting Code Source(s) Document(s ) COLOR, URINE YELLOW STRAW [facility] APPEARANCE, CLOUDY CLEAR [facility] GLUCOSE, NEG NEG [facility] URINE (UA) [facility] BILIRUBIN, NEG NEG [facility] KETONE, URINE NEG NEG [facility] UROBILINOGEN, 1.0 EU/dL 0.0-0.5 Above high normal [facility] URINE Hospital SPECIFIC 1.010 1.001-1. Normal (applies [facility] GRAVITY,URINE 035 to non-numeric Hospital results) OCCULT BLOOD 3+ NEG Abnormal (applies [facility] URINE to non-numeric Hospital results) PH Urine 8.0 U 4.6-8.0 Normal (applies [facility] to non-numeric Hospital results) PROTEIN, 1+ NEG Abnormal (applies [facility] URINE to non-numeric Hospital results) NITRITE, NEG NEG [facility] URINE Hospital URINE NEG NEG [facility] LEUKOCYTE Hospital ESTERASE ID Date Data Source [id number] 03/11/2020 03:00:00 PM EDT [facility] What is the Source CLEAN CATCHIndication s for Urine Screen Leukocytosis What is the Source CLEAN CATCHIndication s for Urine Screen Leukocytosis Name Value Range Interpretation Description Data Sup porting Code Source(s) Document(s ) RBC, URINE TNTC /HPF 0-3 [facility] WBC, URINE 5-10 /HPF 0-5 [facility] BACTERIA, FEW /HPF RARE-FEW [facility] URINE Hospital AMORPHOUS MANY RARE-FEW [facility], [facility] URINE ID Date Data Source [id number] 03/11/2020 01:51:00 PM EDT [facility] SPOKE TO SAM MURCIAAHJOSE ULNDBERG @ 710READ BACK AND VERIFIEDResult Reference RangeNot Detected Not DetectedNOTE: Please consider re-collection of a new specimen, asclini risa indicated.NOTE: The COVID-19 assay has been cleared by the U.S. Foodand Drug Ad ministration under the Emergency UseAuthorization (EUA). [facility] is designatedas a high complexity laboratory by the Clinical LaboratoryImp rovement Amendments of 1988(CLIA) and is qualified toperform this test. ASSAY INF ORMATION: Real Time RT-PCRPerformed by:[facility] [employer] [place] [address] Anson Reyes M.D.Jacquard Loom Card Changer Name Value Range Interpretation Code Description Data Annabelle rce(s) Supporting Document(s ) ID Date Data Source [id number] 03/11/2020 01:02:00 PM EDT [facility] [address] [place] [address] [id number] Director: Chata Patel M.D.MRSANO MRSA ISOLATED Name Value Range Interpretation Code Description Data Annabelle rce(s) Supporting Document(s ) ID Date Data Source [id number] 03/11/2020 01:02:00 PM EDT [facility] [address] [place] [address] [id number] Director: Chata Patel M.D.CALLED MOHAN AKHTAR/COURTNEY LUNDBERG @[id number] (E faecium)(Positive for Vancom ycin-Resistant Enterococcus faecium)R/O VREVRE ISOLATEDRBVREAD BACK AND VERIFIED Name Value Range Interpretation Code Description Data Annabelle rce(s) Supporting Document(s ) ID Date Data Source [id number] 03/11/2020 12:00:00 AM EDT [facility] Name Value Range Interpretation Code Description Data Annabelle rce(s) Supporting Document(s ) 2019-nCoV [facility] RNA XXX BENITO+probe- Imp This lab was ordered by [facility] and reported by [employer]. ID Date Data Source [id number] 01/26/2020 10:40:00 AM EDT [facility] Name Value Range Interpretation Description Data Sup porting Code Source(s) Document(s ) 2018 Novel [facility] Coronavirus RNA Interpretation Unspecified Specimen Qualitative BENITO Probe Detection This lab was ordered by [facility] and rep orted by [facility]. ID Date Data Source [id number] 01/14/2020 09:00:00 AM EDT [facility] Name Value Range Interpretation Description Data Sup porting Code Source(s) Document(s ) 2018 Novel [facility] Coronavirus RNA Interpretation Unspecified Specimen Qualitative BENITO Probe Detection This lab was ordered by [facility] and rep orted by [facility]. Procedure Social History Code Duration Value Status Description Data Source(s ) Alcohol intake 03/16/2020 Ex-drinker completed Ex-drinker [place] [facility] 12:00:00 AM EDT (finding) (finding) Are You a Human [facility] Smoking 03/16/2020 Former smoker completed Former smoker [facility] 12:00:00 AM EDT [employer] Smoking Unknown if completed Unknown if ever [place] [facility] ever smoked smoked Hospital Vital Signs ID Date Data Source UNK Name Value Range Interpretation Code Description Data Source(s) Oxygen saturation 96 % 96 % Peter osorio in Arterial blood [facility] [employer] [facility] [employer] Heart rate 107 /min 107 /min [facility] Respiratory rate 22 /min 22 /min [facility] Body temperature 36.56 Fabiola 36.56 Fabiola [facility] Diastolic blood 92 mm[Hg] 92 mm[Hg] [facility] pressure [facility] Systolic blood 155 mm[Hg] 155 mm[Hg] [place] [facility] pressure [facility] Body mass index 29.90 kg/m2 29.90 kg/m2 [facility] (BMI) [Ratio] [facility] Body weight 86.6 kg 86.6 kg [facility] Body height 170.2 cm 170.2 cm [facility] ID Date Data Source [id number] 04/30/2020 02:20:00 PM EDT [facility] Name Value Range Interpretation Code Description Data Source(s) HEIGHT 172.72 cm 172.72 cm [facility] WEIGHT 85.794527 kg 85.856887 kg [facility] HEIGHT 172.72 cm 172.72 cm [facility] WEIGHT 85.324737 kg 85.560056 kg [facility] HEIGHT 172.72 cm 172.72 cm [facility] WEIGHT 87.516864 kg 87.910288 kg [facility] HEIGHT 172.72 cm 172.72 cm [facility] WEIGHT 87.495595 kg 87.238626 kg [facility] HEIGHT 172.72 cm 172.72 cm [facility] WEIGHT 87.061243 kg 87.415839 kg [facility] HEIGHT 172.72 cm 172.72 cm [facility] WEIGHT 86.238828 kg 86.866413 kg [facility] HEIGHT 172.72 cm 172.72 cm [facility] WEIGHT 178 kg 178 kg [facility] ID Date Data Source [id number] 03/21/2020 03:44:00 PM EDT [facility] Name Value Range Interpretation Code Description Data Source(s) HEIGHT 172.72 cm 172.72 cm [facility] WEIGHT 77.406625 kg 77.422909 kg [facility] HEIGHT 172.72 cm 172.72 cm [facility] WEIGHT 77.971818 kg 77.674945 kg [facility] HEIGHT 172.72 cm 172.72 cm [facility] WEIGHT 88 kg 88 kg [facility] Patient Treatment Plan of Care Planned Activity Planned Date Details Description Data Source (s) cefTRIAXone 2 gram 2 g IVPB 03/20/2020 [employer] 12:00:00 AM EDT [facility] [employer] pantoprazole 4 mg/mL in 0.9% 03/20/2020 [employer] sodium chloride injection 12:00:00 AM EDT [facility] cefTRIAXone 2 gram 2 g IVPB 03/20/2020 [facility] 12:00:00 AM EDT [facility] Levothyroxine Sodium 0.2 MG 03/20/2020 [facility] Oral Tablet 12:00:00 AM EDT [facility] Amlodipine 10 MG Oral Tablet 03/20/2020 [facility] 12:00:00 AM EDT [facility] Hydrocortisone 50 MG/ML 03/19/2020 [facility] Injectable Solution 06:00:00 PM EDT [facility] doxycycline 100 mg 100 mg 03/19/2020 [facility] 12:00:00 AM EDT [facility] ondansetron (ZOFRAN) 4 mg/2 03/19/2020 [facility] mL soln 12:00:00 AM EDT [facility] Hydrocortisone 50 MG/ML 03/19/2020 [facility] Injectable [facility] 12:00[facility] 100 mg 100 mg 03/19/2020 [facility] 12:00:00 AM EDT [facility] tramadol hydrochloride 50 MG 03/19/2020 [facility] Oral Tablet 12:00:00 AM EDT [facility] 0.4 ML Enoxaparin sodium 100 03/19/2020 [facility] MG/ML Prefilled Syringe 12:00:00 AM EDT [facility] e[facility] Alprazolam 0.25 MG Oral 03/19/2020 [facility] Tablet 12:00:00 AM EDT [facility] Acetaminophen 32 MG/ML Oral 03/19/2020 [facility] Solution 12:00:00 AM EDT [facility] vits A and D-white 03/18/2020 [facility] pet-lanolin (A&D) ointment 02:29:41 PM EDT [facility] ondansetron (ZOFRAN) 03/13/2020 [facility] injection 4 mg 01:31:49 PM EDT [facility] sodium chloride (NS) flush 03/13/2020 [facility] 5-10 mL 01:24:19 PM EDT [facility] POLYETHYLENE GLYCOL [id number] 04/02/2018 [place] MG/ML Oral Solution 12:00:00 AM EDT Hospi manju [HealthyLax] Docusate Sodium 100 MG Oral 04/02/2018 [place] Capsule 12:00:00 AM EDT Hospital Prednisone (Prednisone 11/29/2017 [place] Tablet*) 10 Mg Tab, 10 Mg 12:00:00 AM [facility] Hospital Oral Levofloxacin 250 MG Oral 11/06/2017 [facility] [place] Tablet [Levaquin] 12:00:00 AM EST Hospita l Acetaminophen 325 MG / 10/01/2017 [place] Oxycodone Hydrochloride 5 MG 12:00:00 AM [facility] Oral Tablet Docusate Sodium 100 MG Oral 10/01/2017 [place] Capsule [DOK] 12:00:00 AM [facility] Acetaminophen 325 MG Oral [facility] Tablet [facility] System I nc tramadol hydrochloride 50 MG [facility] Oral Tablet Health System I nc Alprazolam 0.25 MG Oral [facility] Tablet Health System I nc FLUTICASONE PROPIONATE IN [facility] I nc potassium bicarbonate 20 MEQ [facility] Effervescent Oral Tablet [facility] 0.4 ML Enoxaparin sodium 100 [facility] MG/ML Prefilled Syringe [facility] Bisacodyl 5 MG Delayed [facility] Release Oral Tablet [facility] atorvastatin 40 MG Oral [facility] Tablet [facility] nc Aspirin 325 MG Oral Tablet B on [facility] I nc ALBUTEROL IN Bon [facility] I nc Ergocalciferol 66204 UNT Oral [facility] Capsule Health System I nc SENNA Bon [facility] I nc POLYETHYLENE GLYCOL 3350 142 [facility] MG/ML Oral Solution Health S [employer] [facility] Nystatin 319140 UNT/ML [facility]Pricing Assistant [facility] Topical Cream [facility] Inc multivitamin (ONE A DAY) [facility] tablet Health System I nc DOCUSATE SODIUM-BENZOCAINE RE [facility] System I nc Docusate Sodium 100 MG Oral [facility] Capsule Health System I nc chlorhexidine gluconate 1.2 [facility] MG/ML [place] [facility] Ascorbic Acid 500 MG Oral [facility] Tablet Health System I nc Doxazosin 1 MG Oral Tablet B on [facility] I nc Losartan Potassium 100 MG [facility] Oral Tablet Health System I nc sennosides, FDC 17.2 MG Oral Bon [facility] Tablet [facility] System I nc Melatonin 5 MG Oral Capsule [facility] I nc Levothyroxine Sodium 0.2 MG [facility] Oral Tablet [facility] I nc gabapentin 100 MG Oral Bon [facility] Capsule [facility] I nc Famotidine 20 MG Oral Tablet Bon [facility] I nc Escitalopram 10 MG Oral [facility] Tablet [facility] I nc Amlodipine 10 MG Oral Tablet [facility] I nc Vitamin E (Vitamin E 400 [facility] [place] Units Cap*) 400 Unit Cap, 400 Hospital Unit Oral Selenomethionine (Selenium) [place] 200 Mcg Tablet, 200 Mcg Oral Hospital Multivitamins (Hexavitamin W tabitha [place] Tablet*) 1 Each Tablet, 1 Tab Hospital Oral Losartan Potassium 100 MG [facility] [place] Oral Tablet [Cozaar] Hospita l Losartan Potassium 50 MG Oral [place] Tablet [Cozaar] [facility] Levothyroxine Sodium 0.1 MG [place] Oral Tablet [Synthroid] Hosp ital Hydrochlorothiazide 12.5 MG [place] Oral Capsule [facility] Hctz/Losartan Potassium Whit e [place] (Hyzaar 100-25 Tablet*) 1 Tab Hospital Tablet, 1 Tab Oral Atenolol (Tenormin*) 25 Mg W tabitha [place] Tab, 25 Mg Oral Hospital Aspirin (Aspirin Enteric [facility] [place] Coated*) 81 Mg Tabec, 81 Mg Hospital Oral Ascorbic Acid (Vitamin C [facility] [place] 500MG Tablet*) 500 Mg Tab, H ospital 500 Mg Oral Probiotic [facility] Nifedipine (Nifedipine Xl) 30 [place] Mg Tab.er.24 Hospital Multivitamins (Tab-A-Anais [facility] [place] Tab*) 1 Each Tablet Hospital Multivitamins 1 Each Capsule [facility] Levothyroxine Sodium 0.2 MG [place] Oral Tablet [Synthroid] Hosp ital ferrous sulfate 325 MG [place] Delayed Release Oral Tablet [facility] Citalopram 20 MG Oral Tablet [facility] Atorvastatin Calcium [place] (Lipitor*) 40 Mg Tab Hospita l Aspirin Buffered (Aspirin [facility] [place] Buffered Tablet*) 325 Mg Hos pital Tablet
--- NOTE | 2020-07-27 12:10 | PDOC ---
History of Present Illness - General Chief Complaint: Respiratory Distress Stated Complaint: DIFFICULTY BREATHING Time Seen by Provider: 07/27/20 11:48 History Source: Patient, Spouse - History of Present Illness Initial Comments: 07/27/20 12:43 75M w/hx tracheostomy, HTN, stroke 6 months ago with residual R sided weakness BIBEMS after he began to desaturate at home. He lives with his who is at [facility] bedside and provides additional history. She reports that his baseline O2% at home is 92-95% on room air and has not required home O2. She reports that she regularly suctions the trach approx 4-5 times daily. Today, she reports noting that his O2% had dropped to the mid 80sand became concerned. She spoke with his PCP who encouraged ED evaluation. Per EMS, en route patient became obtunded with O2% to 80%. Patient was suctioned by EMS en route with removal of mucus plug, and patient became fully alert to baseline as O2% improved to mid 90s. Patient's reports noting increased secretions, without fevers or change in color or consistency of sputum. Past History - Medical History Allergies/Adverse Reactions: Allergies Allergy/AdvReac Type Severity Reaction Status Date / Time Penicillins Allergy Verified 07/27/20 11:46 Home Medications: Ambulatory Orders Aspirin [ASA -] 325 mg PO DAILY 01/07/18 Atorvastatin Ca [Lipitor] 20 mg PO HS 01/07/18 Citalopram Hydrobromide [Citalopram HBr] 20 mg PO DAILY 01/07/18 Lactobacillus Acidophilus [Probiotic] 1 each PO DAILY 01/07/18 Levothyroxine [Synthroid -] 175 mcg PO DAILY 01/07/18 Nifedipine [Nifedipine ER] 30 mg PO DAILY 01/07/18 COPD: No HTN: Yes Hypercholesterolemia: Yes Thyroid Disease: Yes (hypo) - Surgical History GI Surgery: Yes (cath) - Immunization History Immunization Up to Date: No - Psycho-Social/Smoking History Smoking History: Never smoked Have you smoked in the past 12 months: No - Substance Abuse Hx (Audit-C & DAST Scrn) How often the patient has a drink containing alcohol: Never Score: In Men: 4 or > Positive; In Women: 3 or > Positive: 0 Screen Result (Pos requires Nsg. Audit-10AR): Negative In the last yr the pt used illegal drug/Rx for NonMed reason: No Score: Yes response is considered Positive: 0 Screen Result (Positive result requires Nsg. DAST-10): Negative Review of Systems - Review of Systems Able to Perform ROS?: No (Trach, speaking valve abs) *Physical Exam - Vital Signs Last Vital Signs Temp Pulse Resp BP Pulse Ox 98.1 F 69 18 198/83 H 91 L 07/27/20 11:47 07/27/20 11:47 07/27/20 11:47 07/27/20 11:47 07/27/20 11:47 - Physical Exam 07/27/20 12:54 GENERAL: Awake, alert, and fully oriented, in no acute distress HEAD: No signs of trauma, normocephalic, atraumatic EYES: PERRLA, EOMI, sclera anicteric, conjunctiva clear ENT: Auricles normal inspection, hearing grossly normal, nares patent, oropharynx clear without exudates. Moist mucosa NECK: Trach in place. Normal ROM, supple, no lymphadenopathy, JVD, or masses LUNGS: No distress, speaks full sentences, clear to auscultation bilaterally HEART: Regular rate and rhythm, normal S1 and S2, no murmurs, rubs or gallops, peripheral pulses normal and equal bilaterally. ABDOMEN: Soft, nontender, normoactive bowel sounds. No guarding, no rebound. No masses EXTREMITIES : Normal inspection, Normal range of motion, no edema. No clubbing or cyanosis NEUROLOGICAL: Cranial nerves II through XII grossly intact. No focal sensorimotor deficits SKIN: Warm, Dry, normal turgor, no rashes or lesions noted ED Treatment Course - LABORATORY CBC & Chemistry Diagram: 07/27/20 15:30 07/27/20 15:30 - RADIOLOGY Radiology Studies Ordered: Category Date Time Status CXRPORT [CHEST X-RAY PORTABLE*] [RAD] Stat Radiology 07/27/20 12:04 Ordered Medical Decision Making - Medical Decision Making 07/27/20 17:20 On reassessment s/p nebulized albuterol, nebulized saline, patient remains obtunded per . O2% stable at 99-100% Per , patient has had multiple pneumonias with atypical bacteria requiring inpatient IV antibiotics Discharge - Follow up/Referral Referrals: Quintin Maier [Primary Care Provider] - - Patient Discharge Instructions - Post Discharge Activity
[2020-07-27] MEDS ORDERED: ALBUTEROL SO4 0.042% IH SOL 1.25 MG/3 ML VIAL.NEB NEB ONE (13:16)
[2020-07-27] MEDS ORDERED: ALBUTEROL SO4 0.083% IH SOL 2.5 MG/3 ML VIAL.NEB. NEB ONE (13:22)
--- NOTE | 2020-07-27 13:34 | PDOC ---
Documentation entered by Spencer Harrison SCRIBE, acting as scribe for Brunilda Mercado MD. Brunilda Mercado MD: This documentation has been prepared by the Christy mccall Aaron, SCRIBE, under my direction and personally reviewed by me in its entirety. I confirm that the documentation accurately reflects all work, treatment, procedures, and medical decision making performed by me. Attending Attestation - Resident Resident Name: Aureliano Lombardo - ED Attending Attestation I have performed the following: I have examined & evaluated the patient, The case was reviewed & discussed with the resident, I agree w/resident's findings & plan, Exceptions are as noted - HPI HPI: 07/27/20 12:41 The patient is a 75 year old male with a significant PMH of stroke (six months ago), HTN, HLD, who presents to the emergency department BIB for respiratory distress. It was reported that the patient had trouble breathing at home with a period of unresponsiveness when ambulance was called. Was seen by [facility] one week ago (07/21/20) for hypotension. states he usually has thick mucous and needs a 14fr to suction but only had a 12Fr at home. Denies any change in quantity or quality of mucous. No fevers. Allergies: NKDA Past surgical history: GI Cath Social Hx: non-smoker PCP: Quintin Valdez - Physicial Exam PE: 07/27/20 12:32 General: non-toxic appearing Chest: rhonchi at bases R>L but good air entry, no audible wheezes, no stridor, no accessory muscle use CVS: + s1 s2, RRR - Medical Decision Making 07/27/20 12:33 75 yo M with episode of unresponsiveness and hypoxia at home after unable to suction, MS improved and returned to baseline s/p suctioning by EMS, suspect mucous plug. Will r/o PNA as patient with h/o PNA in the past although denies any change in quantity, quality or appearance of sputum. Plan: -repeat suctioning in ED -cxr -reassess This clinical encounter is taking place during a federal and state health care emergency attributable to the novel [place] Virus pandemic. The [place] of the Department of Health and Human Services has declared, pursuant to the Public Health Service Act 319F-3 (42 U.S[place]C. 247d-6d), that a covered persons activities related to medical countermeasures against COVID-19 will be immune from liability under Federal and State law. 07/27/20 15:13 Xray with atelectasis however patient still more somnolent than usual as per and O2 sat below baseline, currently at 88-91% (baseline 92-95) despite albuterol nebs and saline nebs and suctioning. Concern for deep mucous plug vs. early PNA. Will check labs, treat with jean-paul orellana and admit for concern for PNA. Discharge - Discharge Information Problems reviewed: Yes Clinical Impression/Diagnosis: Hypoxia - Follow up/Referral Referrals: Quintin Maier [Primary Care Provider] - - Patient Discharge Instructions - Post Discharge Activity
[2020-07-27] MEDS ORDERED: VANCOMYCIN HCL 1,500 MG in DEXTROSE 5%-WATER - 500 ML IVPB ONE (15:13)
[2020-07-27] MEDS ORDERED: AZITHROMYCIN IVPB 500 MG in DEXTROSE 5%-WATER - 250 ML IVPB ONE (15:13)
[2020-07-27] MEDS ORDERED: PIPERACILLIN/TAZOB 4.5 GM 4.5 GM in DEXTROSE 5%-WATER 100 ML IVPB ONE (15:13)
[2020-07-27] MEDS ORDERED: PIPERACILLIN/TAZOB 4.5 GM 4.5 GM/100 ML BAG IVPB ONE (15:42)
[2020-07-27 16:16] LABS: BASO % 1.1 % (0-2.0); EOS % 3.2 % (0-4.5); HEMATOCRIT 26.7 % (35.4-49); HEMOGLOBIN 9.1 GM/dL (11.7-16.9); LYMPH % 7.5 % (8-40); MCH 28.4 pg (25.7-33.7); MEAN CELL VOLUME 83.5 fl (80-96); MONO % 20.8 % (3.8-10.2); NEUT % 67.4 % (42.8-82.8); PLATELET COUNT 284 K/MM3 (134-434); WHITE BLOOD COUNT 8.1 K/mm3 (4.0-10.0)
[2020-07-27] MEDS ORDERED: AZITHROMYCIN IVPB 500 MG/250 ML BAG IVPB ONE (16:17)
[2020-07-27 16:42] LABS: ALBUMIN 2.4 g/dl (3.4-5.0); ALK PHOS 65 U/L (45-117); ANION GAP 7 MMOL/L (8-16); BILIRUBIN,TOTAL 0.4 mg/dL (0.2-1); CALCIUM 8.4 mg/dL (8.5-10.1); CHLORIDE 87 mmol/L (98-107); CO2 30 mmol/L (21-32); CREATININE 0.7 mg/dL (0.55-1.3); GLUCOSE,RANDOM 84 mg/dL (74-106); POTASSIUM 3.9 mmol/L (3.5-5.1); SGOT/AST 27 U/L (15-37); SGPT/ALT 8 U/L (13-61); SODIUM 124 mmol/L (136-145); TOT PROT 7.2 g/dl (6.4-8.2)
--- OUTSIDE RECORDS SUMMARY | 2020-07-27 18:12 | XMS ---
:1945 Author Organization [facility] Care Team Providers Name Role Phone PRECIOUS [...] Tyler Unavailable Unavailable Seliger, Tyler Unavailable Unavailable JACOBY LPÓEZ Unavailable Unavailable MD JACINTA Unavailable Unavailable Velazquez [...] is protected by Article 27-F of the [facility] Public Health law. If you continue you may haveaccess to information: Regarding HIV / AIDS; Provided by facilities licensed or operated by the [facility] Office of Mental Health; or Provided by the [facility] Office for People With Developmental Disabilities. If such information is present, then the following [facility] mandated warning applies: This information has been [...] law may result in a fine or custodial sentence or both. A general authorization for the release of medical or other information is NOT sufficient authorization for further disclosure. Allergies and Adverse Reactions Type Description Substance Reaction Status Data Source(s ) Drug allergy Sulfamethoxazole Sulfamethoxazole PCC ([facility] /Trimethoprim /Trimethoprim Usp) No Known No Known PCC ([facility] Allergies Allergies Usp) To Be Determined To Be Determined PC C ([facility] Usp) Miscellaneous ISOLATION ISOLATION [facility] Drug allergy No Known Drug No Known Drug [facility] Drug allergy Penicillins Penicillins swelling [facility] Miscellaneous Difficult to Difficult to UNKNOWN [facility] Drug allergy Penicillins Penicillins [facility] on Encounters Encounter Providers Location Date Indications Data Source(s ) Inpatient Attender: Toni 04/22/2020 [facility] (S t[facility] [place] 12:00:00 PM EDT Nursing H ome) - 07/18/2020 11:00:00 AM EDT Patient discharged. Outpatient 04/09/2020 11:31:39 AM Jesus n [facility] Outpatient 04/04/2020 11:08:23 AM Jesus n [facility] Inpatient Attender: Edison 03/19/2020 05:33:00 PM TBI/VENT [facility] SeligerAdmitter: EDT - 04/22/2020 [facility] 12:07:00 PM EDT SeligerReferrer: [facility] TBI/VENT Patient admitted. Inpatient Attender: Edison -03/19/2020 [facility] SeligerAdmitter: Edison 05:33:00 PM EDT Hospital [facility]Referrer[facility]ultant: PRECIOUS DUENAS MDConsultant: MARIA LUISA FORRESTLUConsultant: JNA WORKMAN MD Outpatient 03/16/2020 [facility] - Good 07:02:25 PM EDT [facility] Outpatient 03/16/2020 [facility] 12:25:00 PM EDT [facility] Outpatient 03/13/2020 [facility] 03:45:00 PM EDT [facility] Inpatient Admitter: Chiquita Velazquez 03/13/2020 Respiratory [facility] - Good 12:00:00 AM EDT [facility] 03/19/2020 [facility] 04:34:00 PM EDT Respiratory Failure Patient discharged. Inpatient Attender: Edison 03/11/2020 11:45:00 TBI/TRACH [facility] SeligerAdmitter: Edison AM EDT - 03/13/2020 [facility] Seliger 01:17:00 PM EDT TBI/TRACH Patient discharged. Inpatient Attender: Edison -03/11/2020 [facility] SeligerAdmitter: Edison 11:45:00 AM EDT [facility] center[facility]ult[facility]: JAN WORKMAN MD P Attender: Fredrick Marques MD 01/29/2020 [facility]un 02:00:00 PM EDT R13.14 Hospital DYSPHAGIA R13.14 Outpatient Attender: Fredrick 11/27/2019 07:51:00 IRON DEFIC IENCY Najma Waters MD AM EST ANEMIA prev Hospital 04/28/18 IRON DEFICIENCY ANEMIA prev 04/28/18 Outpatient Attender: Kwame Otoole MD 09/08/2019 10:14:00 AM F /U [facility] EST F/U Outpatient Attender: RENE 08/24/2019 06:00:00 I65.23 [facility] ROMEOAdmitter: RENE AM EDT [facility] Care ROMEOReferrer: RENEMadhu poration JACOBY I65.23 Outpatient Attender: Kwame 03/17/2019 09:38:00 * WET READ * Najma Otoole MD AM EDT [facility] * WET READ * [facility] CARCINOMA Outpatient Attender: Fredrick 04/28/2018 07:30:00 F/U FROM C [facility] [place] [facility] COOK AM EDT NO PREV Hospital F/U FROM [facility] NO PREV Medications Medication Brand Start Product Dose Route Administrative Pharmacy [facility] Indications Reaction Description Data Name Date Form Instructions Instructions Source(s) pantoprazol 05/20/ 40 mg IntraV active 10 mL by Bon e 4 mg/mL 2019 ENous IntraVENous Se cours in 0.9% 12:00: route daily. Ch arity sodium 00 AM Health chloride EDT System Inc injection Amlodipine amLODI 05/20/ 10 mg Oral active Take 1 Tab Bon 10 MG Oral Nuckolls 2020 by mouth Secou rs Tablet (NORVA [...] [facility] EDT (24) hours System In for 4 days. cefTRIAXone 05/20/ 2 g IntraV aborted 2 g by Bon 2 gram 2 g 2020 ENous IntraVENous S ecours IVPB 12:00: route every Charit y 00 AM [facility] EDT (24) hours System In for 11 days. Hydrocortis hydroc mg IntraV aborted 50 mg, Bon one 50 2019 ENous IntraVENous, Se cours MG/ML ne [...] 03/19/2020 40 SubCUTAneous active 0.4 mL by Bon Enoxaparin (LOVENOX) 40 12:00:00 AM mg SubCUTAneous [...] Oral active B Take 1 Tab by Bon 0.25 MG Oral (XANAX) 0.25 12:00:00 AM [...] mg IntraVEN ous [facility] EDT route every [facility] twelve (12) Health hours for 4 System days. Inc doxycycline 100 03/19/2020 100 IntraVENous aborted 100 mg by Bon mg 100 mg 12:00:00 AM mg IntraVEN ous [facility] EDT route every [facility] twelve (12) Health hours for 11 System days. Inc ondansetron 42773- 03/19/2020 4 mg IntraVENous active 2 mL by Bon (ZOFRAN) 4 mg/2 181-01 12:00:00 AM IntraVENous [facility] mL soln EDT route every [facility] ty six (6) Health hours as [...] failure wit h hypoxia (HCC) Septic shock ([facility]) At risk for sepsis Fever, unspecified fever cause doxycycline 03/18/2020 100 IntraVENous aborted 100 mg, Bon (VIBRAMYCIN) 09:00:00 PM mg Intra VENous, [facility] 100 mg in 0.9% EDT EVERY 12 C harity sodium HOURS, [facility] dose on Wed em (MBP/ADV) 100 03/18/20 at [facility] mL MBP 2100, Until Discontinued, at 100 mL/hr Medication administered onsite sodium 6372-5669-45 03/18/2020 500 IntraVENous completed 500 mL, at [...] DAILY, [facility] hydrocortisone mg dose on Mo n System Sod Succ (PF) 03/18/20 at Inc (SOLU-CORTEF) 1900, Until injection 100 Discontinue d mg Medication administered onsite 1 ML morphine 03/18/2020 1 IntraVENous completed severe 1 mg, Bon Morphine injection 03:00:00 PM mg pain Intr aVENous, [facility] Sulfate 2 1 mg EDT ONCE, 1 dose, C harity MG/ML 03/18/20 Health Prefilled at 1500 System Syringe Inc morphine injection 1 mg severe pain Medication administered onsite vits A [place] 87477-377-79 03/18/2020 Topical aborted Topical, Bon D-white 02:29:41 [...] 1 dose , Juliana Injection 1 mg [place] 03/17/20 [facility] LORazepam at 1200 System (ATIVAN) Inc injection 1 mg preoperative anxiety Medication administered onsite Amlodipine amLODIPine 03/17/2020 10 Oral aborted 10 mg, Oral, Bon 10 MG Oral (NORVAS) 12:00:00 PM mg DA WAQAR, [facility] Tablet tablet 10 mg EDT dose on Woods n Juliana amLODIPine 03/17/20 at [facility] (NORVASC) 1200, Until Sys tem tablet 10 mg [...] 1 dose , Juliana Injectable injection 10 [place] [facility] Solution mg at 0300 System hydrALAZINE [...] 2100, Until Discontinued Medication administered onsite potassium 9389-1505-69 03/16/2020 40 Oral completed 40 mEq, Bon [...] 1 dose , Juliana Injectable injection 10 [facility] Health Solution mg at 0400 System hydrALAZINE [...] 1 dose, Juliana sodium Bel 03/14/20 at [facility] chloride 100 1200, at [...] 0.9% First dose on Health sodium chloride Bel at System 50 mL IVPB 1000, Until In c Discontinued, at 100 mL/hr Medication administered onsite pantoprazole 03/14/2020 40 IntraVENous aborted 40 mg, Bon (PROTONIX) 40 09:00:00 AM mg Intr aVENous, [facility] mg in 0.9% EDT DAILY, First C harity sodium dose on Bel Health chloride 10 mL 03/14/20 at System injection 0900, Until Inc Discontinued Medication administered onsite 1 ML LORazepam 03/14/2020 1 IntraVENous completed 1 mg, Bon Lorazepam 2 (ATIVAN) 05:00:00 AM mg In traVENous, [facility] MG/ML injection 1 EDT ONCE, 1 dose , Juliana Injection mg Bel 03/14/20 [facility] LORazepam at 0500 System (ATIVAN) Inc injection [...] nc Starting Bel 03/14/20 at 0301, Until 03/19/20 at 2035, Fever, Mild Pain Medication administered onsite vancomycin 03/13/2020 1250 IntraVENous aborted 1,250 mg, Bon (VANCOCIN) 11:00:00 PM mg IntraVE Nous, [facility] 1,250 mg in EDT EVERY 12 HOUR S, Juliana 0.9% sodium First dose on [facility] chloride 250 03/13/20 at System mL IVPB 2300, Until Inc Discontinued, at 125 mL/hr Medication administered onsite 0.4 ML enoxaparin 03/13/2020 40 SubCUTAneous aborted 40 mg, Bon Enoxaparin (LOVENOX) 09:00:00 PM mg Woods bCUTAneous, [facility] sodium 100 injection EDT EVERY 24 Juliana MG/ML 40 mg HOURS, [facility] Prefilled dose on [facility] Sys tem Syringe 03/13/20 at [facility] enoxaparin 2100, Until (LOVENOX) Discontinued injection 40 mg Medication administered onsite piperacillin-tazobactam 03/13/2020 3.375 IntraVENous ab orted 3.375 g, Bon (ZOSYN) 3.375 g in 0.9% 07:00:00 PM g IntraVENous, [facility] sodium chloride EDT EVERY 8 H OURS, Juliana (MBP/ADV) 100 mL MBP Firs t dose on [facility] 03/13/20 at Syste m 1900, Until Inc Discontinued, at 25 mL/hr Medication administered onsite ondansetron 28474-422-59 03/13/2020 4 IntraVENous aborted 4 mg, Bon (ZOFRAN) 01:31:49 PM mg IntraVENo us, [facility] injection 4 EDT EVERY 6 HOURS Juliana mg NEEDED, Health Starting [facility] System 03/13/20 at Inc 1331, Until Wed03/19/20 at 2034, Nausea or Vomiting Medication administered onsite sodium 98671-66979 03/13/2020 mL IntraVENous aborted 5-10 mL, Bon chloride 01:24:19 PM IntraVENo us, Sec[facility] (NS) flush EDT NEEDED, Esperanza rity 5-10 mL Starting 03/13/20 at System 1324, Until Wed03/19/20 at 2034, Line Patency Medication administered onsite NOREPINephrine [address]-87 03/13/2020 ug/min IntraVENous aborted 0.5-30 mcg/min Bon (LEVOPHED) 8 mg 12:45:00 PM (0 .9375-56.25 [facility] in 5% dextrose EDT mL/hr, rou nded Juliana 250mL (32 to 0.9-56.3 Hea lth mcg/mL) mL/hr), at System infusion 0.9-56.3 Inc mL/hr, IntraVENous, TITRATE, Starting [facility] 03/13/20 at 1246, Until Wed03/15/20 at 1605 Medication administered onsite 0.9% 7495-5080-91 03/13/2020 30 IntraVENous completed 3,402 mL (30 Bon sodium 12:27:00 PM mL/kg m L/kg [facility] chloride EDT Juliana infusion 113.4 kg), Heal h 3,402 mL IntraVENous, Sys tem ONCE, 1 dose, [facility] 03/13/20 at 1227 Medication administered onsite vancomycin 03/13/2020 1000 IntraVENous completed 1,000 mg, Bon (VANCOCIN) 11:22:00 AM mg IntraVE Nous, [facility] 1,000 mg in EDT NOW, 1 dose, Juliana 0.9% sodium [facility] 03/13/20 H ealth chloride at 1122, at Syst em (MBP/ADV) 125 mL/hr Inc 250 mL adv Medication administered onsite Acetaminophen acetaminophen 03/13/2020 975 Per G completed 975 mg, Bon 325 MG Oral (TYLENOL) 11:17:00 AM mg Tube P er G [facility] Tablet tablet 975 mg EDT Tube, Esperanza rity acetaminophen NOW, 1 (TYLENOL) dose, System tablet 975 mg [facility] 03/13/20 at 1117 Medication administered onsite sodium 3022-2512-18 03/13/2020 1000 IntraVENous completed 1,000 mL, at [...] 200 mL/hr Inc Medication administered onsite 0.9% 9924-6943-70 03/13/2020 50 IntraVENous aborted 50 mL/hr, at Bon sodium 10:32:00 AM mL/h 50 mL/hr, S ecours chloride EDT IntraVENous, Esperanza rity infusion CONTINUOUS, Heal th Starting Wed System 03/13/20 at Inc 1032, Until 03/17/20 at 1052 Medication administered onsite Docusate Docusate 04/02/2018 CAPSULE 100 mg completed Three White Sodium 100 MG Sodium 12:00:00 AM Ti mes A [place] Oral Capsule (Colace*) EDT spital Docusate 100 Mg Cap Sodium (Colace*) 100 Mg Cap POLYETHYLENE Polyethylene 04/02/2018 POWDER 17 g completed Daily White GLYCOL 3350 Glycol 12:00:00 AM [place] 142 MG/ML (Miralax EDT Hospit al Oral Solution Packet*) 17 [HealthyLax] Gram Powd Polyethylene Glycol (Miralax Packet*) 17 Gram Powd Prednisone 11/29/2017 TABLET 10 mg completed Daily White (Prednisone 12:00:00 AM P lains Tablet*) 10 EST Hospital Mg Tab, 10 Mg Oral Levofloxacin Levofloxacin 11/06/2017 TABLET 250 mg completed Daily White 250 MG Oral (Levaquin 12:00:00 AM [place] Tablet Tablet*) 250 EST Hospi manju [Levaquin] Mg Tab, 250 Levofloxacin Mg Oral (Levaquin Tablet*) 250 Mg Tab, 250 Mg Oral Acetaminophen Oxycodone 10/01/2017 TABLET completed Every 4 White 325 MG / Hcl/Acetamin 12:00:00 AM H ours as [place] Oxycodone ophen EST needed Hospita l Hydrochloride (Oxycodone-A for Pain 5 MG Oral cetaminophen Tablet 5-325) 5 Oxycodone Mg-325 Mg Hcl/Acetamino Tablet, 1-2 phen Tab Oral (Oxycodone-Ac etaminophen 5-325) 5 Mg-325 Mg Tablet, 1-2 Tab Oral Docusate Docusate 10/01/2017 CAPSULE 100 mg completed Three White Sodium 100 MG Sodium (Dok) 12:00:00 AM Times A [place] Oral Capsule 100 Mg EST Day Hospi manju [DOK] Capsule, 100 Docusate Mg Oral Sodium (Dok) 100 Mg Capsule, 100 Mg Oral sennosides, sennosides 17.2 PEG active 17.2 mg Bon LONGTERM 17.2 MG 17.2 mg tab mg Tub [...] 1 completed Mari y White (Tab-A-Anais {Capsu [place] Tab*) 1 Each le} Hospita l Tablet gabapentin gabapentin 100 mg Per active 100 mg Bon 100 MG Oral (NEURONTIN) G by Per G [facility] Capsule 100 mg Tub Tube Juliana gabapentin capsule e route Healt h (NEURONTIN) three System 100 mg (3) Inc capsule times daily. Atorvastatin TABLET 40 mg completed Mari y White Calcium [place] (Lipitor*) 40 Hospit al Mg Tab Famotidine 20 famotidine 20 mg Per active 20 mg by Bon MG Oral (PEPCID) 20 G Per G Seco urs Tablet mg tablet Tub Tube Juliana famotidine e route Health (PEPCID) 20 two (2) Syste m mg tablet times a Inc day. Hctz/Losartan TABLET 1 completed Mari y White Potassium {Capsu [place] (Hyzaar le} Hospital 100-25 Tablet*) 1 Tab [...] 325 mg completed Daily Wh ite Buffered [place] (Aspirin Hospital Buffered Tablet*) 325 Mg Tablet FLUTICASONE 1 Mitch active 1 [place] Bon PROPIONATE IN {spray al by Nasal Sec[facility] } route Juliana two (2) Health times a System day. Inc Multivitamins TABLET 1 completed Mari y White (Hexavitamin {Capsu Plain s Tablet*) 1 le} Hospital Each Tablet, 1 Tab Oral Vitamin E CAPSULE 400 completed Daily W tabitha (Vitamin E [place] 400 Units Hospital Cap*) 400 Unit Cap, 400 Unit Oral Atenolol TABLET 25 mg completed Daily Wh ite (Tenormin*) [place] 25 Mg Tab, 25 Hospit al Mg [...] mg completed Da waqar White (Vitamin C [place] 500MG Hospital Tablet*) 500 Mg Tab, 500 [...] rectum. Juliana Every 2 Health days System Inc multivitamin [address]-7 1 Per active 1 Tab by Bon (ONE A DAY) 4 {tbl} G Per G Secour s tablet Tub Tube Juliana e [facility] Health daily. System Inc Multivitamins CAPSULE 1 completed Sheyla ly White 1 Each {Each} [place] Capsule [facility] SENNA 528 mg PEG active 528 mg Bon Tub by PEG Sec[facility] e Tube Juliana route. Health System [facility] Selenomethion TABLET 200 ug completed Da waqar White ine [place] (Selenium) [facility] 200 Mcg Tablet, 200 Mcg Oral Ergocalcifero ergocalcifer 10451 O[place] l [address] UNT ol (Vitamin U l 50,000 [facility] Oral Capsule D2) 1,250 Units b y Juliana ergocalcifero mcg (50,000 mout h. Health l (Vitamin unit) System D2) 1,250 mcg capsule Inc (50,000 unit) capsule Nystatin nystatin Top active Apply Bon 027746 UNT/ML (MYCOSTATIN) ica to [facility] Topical Cream topical l affected [facility] nystatin cream [facility] (MYCOSTATIN) three System topical cream (3) Inc times daily. POLYETHYLENE polyethylene 17 g Ora active Ta ke 17 Bon GLYCOL 3350 glycol l g by Secour s 142 MG/ML (MIRALAX) 17 mouth C harity Oral Solution gram packet mari y. Health polyethylene System glycol Inc (MIRALAX) 17 gram packet Aspirin ENTERIC 81 mg completed Daily Wh ite (Aspirin COATED [place] Enteric TABLET Hospital Coated*) 81 Mg Tabec, [...] mg tablet Inc Probiotic 1 completed Daily [facility] {[facility]} [facility] 0.4 ML enoxaparin 40 mg Sub aborted [...] Policy type / Policy ID Covered Covered alliance party's Policy Plan Coverage type alliance party ID relationship to Batres Information batres MEDICARE [id number] [facility] [id number] CABRINI OF [id number] SP [id number] [facility] MEDICARE [id number] SP [id number] A POMCO [id number] PT [id number] MEDICARE [id number] PT [id number] A BLUE CROSS [id number] PT [id number] OTHER [facility] THE [id number] EMPIRE PLAN [facility] EMPIRE [id number] [id number] [place]PO [place] MEDICARE [id number] PART A AND B [facility] HMO [id number] PPO OTHER Medicare MDA [id number] None [id number] [facility] THE [id number] EMPIRE PLAN [facility] EMPIRE [id number] YL [id number] [place]PO [place] MEDICARE [id number] PART A AND B BLUE CROSS [id number] EMPIRE PLAN UMR [id number] SP [id number] MEDICARE [id number] SP [id number] [employer] [place] PPO [id number] HEALTHCARE BLUE CROSS PPO [id number] [facility] [id number] [place]ARE [place] MED[place] Medicare [id number] GENERIC [id number] COMMERCIAL MEDICARE [id number] PT [id number] BLUE CROSS [id number] PT [id number] OTHER MEDICARE [id number] PT [id number] M45 [facility]POMCO [id number] PT [id number] BLUE CROSS IND [id number] PT [id number] [id number] [employer] [id number] PT [id number] MEDICARE [id number] PT [id number] A Problems, Conditions, and Diagnoses Code Display Name Description Problem Effective Data Type Dates Source(s) T14.8XXA Bruise Bruise [id number] 03/18/2020 [facility] 12:00:00 AM [facility] A41.9 Septic shock Septic shock [id number] 03/13/2020 [place] 12:[place]:00 AM [facility] N39.0 Urinary tract URINARY TRACT Diagnosis 06/25/2020 [facility] (St. infection, site INFECTION, SITE 12:00:00 AM [facility] not specified NOT SPECIFIED EDT Usp) J96.90 Respiratory RESPIRATORY Diagnosis 04/22/2020 [facility] (St. failure, FAILURE, 12:00:00 AM [facility] unspecified, UNSPECIFIED, EDT Nursing Ho me) unspecified UNSPECIFIED whether with WHETHER WITH hypoxia or HYPOXIA OR hypercapnia HYPERCAPNIA Z93.0 Tracheostomy TRACHEOSTOMY Diagnosis 04/22/2020 [facility] (St. status STATUS 12:00:00 AM [facility] EDT Usp) Z46.6 Encounter for ENCOUNTER FOR Diagnosis 04/22/2020 [facility] (St. fitting and FITTING AND 12:00:00 AM [facility] adjustment of ADJUSTMENT OF EDT Usp) urinary device URINARY DEVICE F32.1 Major depressive MAJOR Diagnosis 04/22/2020 P[facility] (St. disorder, single DEPRESSIVE 12:00:00 AM [facility] episode, moderate DISORDER, EDT Usp) SINGLE EPISODE, MODERATE M62.81 Muscle weakness MUSCLE WEAKNESS Diagnosis 04/22/2020 P[facility] (St. (generalized) (GENERALIZED) 12:00:00 AM [facility] EDT Usp) K21.9 Gastro-esophageal GASTRO-ESOPHAGE Diagnosis 04/22/2020 PC C (St. reflux disease AL REFLUX 12:00:00 AM [facility] without DISEASE WITHOUT EDT Nursing H ome) esophagitis ESOPHAGITIS D64.9 Anemia, ANEMIA, Diagnosis 04/22/2020 [facility] (St. unspecified UNSPECIFIED 12:00:00 AM [facility] EDT Usp) M19.90 Unspecified UNSPECIFIED Diagnosis 04/22/2020 P[facility] (St. osteoarthritis, OSTEOARTHRITIS, 12:00:00 AM Cab [facility] unspecified site UNSPECIFIED EDT Usp) SITE F41.9 Anxiety disorder, ANXIETY Diagnosis 04/22/2020 [facility] ([address] . unspecified DISORDER, 12:00:00 AM [facility] UNSPECIFIED EDT Usp) E78.5 Hyperlipidemia, HYPERLIPIDEMIA, Diagnosis 04/22/2020 [facility] (St. unspecified UNSPECIFIED 12:00:00 AM [facility] EDT Usp) I10 Essential ESSENTIAL Diagnosis 04/22/2020 [facility] (St. 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 stenosis of STENOSIS OF 12:00:00 AM [facility] unspecified UNSPECIFIED EDT Usp ) carotid artery CAROTID ARTERY E03.9 Hypothyroidism, HYPOTHYROIDISM, Diagnosis 04/22/2020 [facility] (St. unspecified UNSPECIFIED 12:00:00 AM [facility] EDT Usp) Z85.850 Personal history PERSONAL Diagnosis 04/22/2020 [facility] (St. of malignant HISTORY OF 12:00:00 AM [facility] neoplasm of MALIGNANT EDT Usp) thyroid NEOPLASM OF THYROID R13.10 Dysphagia, DYSPHAGIA, Diagnosis 04/22/2020 [facility] (St. unspecified UNSPECIFIED 12:00:00 AM [facility] EDT Usp) A41.9 Sepsis, SEPSIS, Diagnosis 04/22/2020 [facility] (St. unspecified UNSPECIFIED 12:00:00 AM [facility] organism ORGANISM EDT Usp) R47.01 Aphasia APHASIA Diagnosis 04/22/2020 [facility] (St. 12:00:00 AM [facility] EDT Usp) Z93.1 Gastrostomy GASTROSTOMY Diagnosis 04/22/2020 [facility] (St. 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 nontraumatic FOLLOWING 12:00:00 AM [facility] intracerebral NONTRAUMATIC EDT Nursing H ome) hemorrhage INTRACEREBRAL HEMORRHAGE I69.391 Dysphagia DYSPHAGIA Diagnosis 04/22/2020 [facility] (St. following FOLLOWING 12:00:00 AM [facility] cerebral CEREBRAL EDT Usp) infarction INFARCTION I61.9 Nontraumatic NONTRAUMATIC Diagnosis 04/22/2020 [facility] (St. intracerebral INTRACEREBRAL 12:00:00 AM [facility] hemorrhage, HEMORRHAGE, EDT Usp ) unspecified UNSPECIFIED N30.20 Other chronic OTHER CHRONIC Diagnosis 04/22/2020 [facility] (St. cystitis without CYSTITIS 12:00:00 AM [facility] hematuria WITHOUT EDT Usp) HEMATURIA G93.40 Encephalopathy, ENCEPHALOPATHY, Diagnosis 04/22/2020 [facility] (St. unspecified UNSPECIFIED 12:00:00 AM [facility] EDT Usp) Z85.850 Personal history PERSONAL Diagnosis 03/19/2020 Arina [...] of DISEASE OF 05:33:00 PM [facility] [place] coronary [place] CORONARY EDT artery without ARTERY W/O ANG [...] GASTROSTOMY EDT I69.191 Dysphagia DYSPHAGIA Diagnosis 03/19/2020 Arina Leiva following FOLLOWING 05:33:00 PM Hospital nontraumatic [...] with septic shock with septic 10:24:[address] [facility] shock EDT Hospital R50.9 Fever, Fever, Diagnosis 03/13/2020 [facility] - [facility] unspecified unspecified 10:24:58 AM [facility] EDT Hospital Z87.891 Personal history PERSONAL Diagnosis 03/11/2020 Arina Rivers yes of nicotine HISTORY OF 11:45:00 AM Hospital dependence NICOTINE EDT DEPENDENCE Z85.46 Personal history PERSONAL Diagnosis 03/11/2020 Arina Rivers yes of malignant HISTORY OF 11:45:00 AM Hospital neoplasm of MALIGNANT EDT prostate NEOPLASM OF PROSTATE Z95.828 Presence of other PRESENCE OF Diagnosis 03/11/2020 Arina Leiva vascular implants OTHER VASCULAR 11:45:00 AM Ho spital and grafts IMPLANTS AND EDT GRAFTS R53.83 Other fatigue OTHER FATIGUE Diagnosis 03/11/2020 Arina Rivers yes 11:45:00 AM Hospital EDT R13.12 Dysphagia, DYSPHAGIA, Diagnosis 03/11/2020 Arina Leiva oropharyngeal OROPHARYNGEAL 11:45:00 AM Hospita l [...] EST D49.0 Neoplasm of D49.0 Diagnosis 11/27/2019 [place] unspecified 07:51:00 AM Hospital behavior of EST [...] 08/24/2019 [place] UNSPECIFIED 06:00:00 AM [facility] EDT Care [employer] Z87.891 Personal history PERSONAL Diagnosis 08/24/[address] of nicotine HISTORY OF 06:00:00 AM [facility] dependence NICOTINE EDT Care [employer] I65.23 Occlusion and OCCLUSION AND Diagnosis 08/24/2019 [facility] stenosis of STENOSIS OF 06:00:00 [facility] bilateral carotid BILATERAL EDT Care arteries [employer] ARTERIES R91.1 Solitary R91.1 Diagnosis 03/17/2019 [place] pulmonary nodule 09:38:00 AM Hospita l EDT M41.9 Scoliosis, M41.9 Diagnosis 04/28/2018 [place] unspecified 07:30:00 AM Hospital EDT M51.36 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 04/28/2018 [place] 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:30:00 AM Hospital disc EDT degeneration, lumbar region I70.0 Atherosclerosis I70.0 Diagnosis 04/28/2018 [place] ins of aorta 07:30:00 AM Hospital EDT K76.89 Other specified K76.89 Diagnosis 04/28/2018 [place] diseases of liver 07:30:00 AM Hospit al EDT I51.7 Cardiomegaly I51.7 Diagnosis 04/28/2018 [place] 07:30:00 AM Hospital EDT K86.2 Cyst of pancreas K86.2 Diagnosis 04/28/[address] [place] 07:30:00 AM Hospital EDT [phone] preoperative Diagnosis [facility] anxiety [facility] [phone] severe pain Diagnosis [facility] [id number] Bruise Diagnosis [facility] [id number] Sepsis, due to Diagnosis [place] unspecified [facility] organism, Health System unspecified Inc whether acute organ dysfunction present ([facility]) [id number] Gross hematuria Diagnosis Bon Sec[facility] rs [facility] [id number] Complication of Kelly catheter Diagnosis Bon [facility]ours urinary catheter problem, [facility] (disorder) initial Health System encounter ([facility]) Inc [id number] Acute on Diagnosis [facility] chronic [facility] respiratory Health System failure with Inc hypoxia ([facility]) [id number] Septic shock Septic shock Diagnosis [place] (disorder) ([facility]) [facility] [id number] At risk for At risk for Diagnosis Bon S [facility]ours sepsis (finding) sepsis [facility] [id number] Fever, Diagnosis [facility] unspecified [facility] fever cause Health System Inc [id number] Bruise Diagnosis [facility] Inc [id number] Sepsis, due to Diagnosis Peter [place] s unspecified [facility] organism, Health System unspecified Inc whether acute organ dysfunction present ([facility]) [id number] Gross hematuria Diagnosis Peter Macario rs [facility] [id number] Complication of Kelly catheter Diagnosis Peter [place] ecoellis urinary catheter problem, [facility] (disorder) initial Health System encounter ([facility]) Inc [id number] Acute on Diagnosis Peter [facility] chronic [facility] respiratory Health System failure with Inc hypoxia ([facility]) [id number] Septic shock Septic shock Diagnosis Peter May s (disorder) (HCC) [facility] [id number] At risk for At risk for Diagnosis Peter S ecours sepsis (finding) sepsis [facility] [id number] Fever, [facility] fever cause [facility] Surgeries/Procedures Procedure Description Date Indications Data Source(s) [...] Scan Vein Duplex Scan Vein 03/27/2020 Arina Torres ayyuri Unilat Unilat 12:00:00 AM Hospital EDT Portable Chest X-Ray Portable Chest X-Ray 03/26/2020 Arina Leiva 12:00:00 AM Hospital EDT Portable Chest X-Ray Portable Chest X-Ray 03/20/2020 Arina Leiva 12:00:00 AM Hospital EDT TRACHEOSTOMY TRACHEOSTOMY Routine 03/19/2020 03/19/2020 Bon CHANGE CHANGE 3:51 PM EDT 03:51:59 PM [facility] EDT [facility] CBC WITH CBC WITH Routine 03/19/2020 03/19/2020 Bon MANUAL DIFF MANUAL DIFF 3:55 AM EDT 03:55:00 AM [facility] METABOLIC METABOLIC Routine 03/19/2020 03/19/2020 Bon PANEL, PANEL, 3:55 AM EDT 03:55:00 AM [facility] HC CBC WITHOUT HC CBC WITHOUT Routine 03/18/2020 020 Bon DIFFERENTIAL DIFFERENTIAL 3:44 AM EDT 03:44:00 A M [facility] METABOLIC METABOLIC Routine 03/18/2020 03/18/2020 Bon PANEL, PANEL, 3:44 AM EDT 03:44:00 AM [facility] HC CBC WITHOUT HC CBC WITHOUT Routine 03/17/2020 020 Bon DIFFERENTIAL DIFFERENTIAL 3:46 AM EDT 03:46:00 A M [facility] METABOLIC METABOLIC Routine 03/17/2020 03/17/2020 Bon PANEL, PANEL, 3:46 AM EDT 03:46:00 AM [facility] NC XR NC XR Routine 03/16/2020 03/16/2020 Jesus n TECHNOLOGIST TECHNOLOGIST 9:51 PM EDT 09:51:31 P M [facility] SERVICE SERVICE [facility] CULTURE, URINE CULTURE, URINE Routine 03/16/2020 020 Bon 9:30 PM EDT 09:30:00 PM [facility] CYSTOSCOPY CYSTOSCOPY 03/16/2020 Urethra 03/16/2020 Uret hra Bon 8:36 PM EDT or 08:36:00 PM or [facility] bladder EDT - bladder [facility] neck 03/16/2020 neck Healt h atresia 09:51:00 PM atresia Syst em or EDT or Inc stenosis stenosis Urethra or bladder neck atresia or steno sis HC CBC WITHOUT HC CBC WITHOUT Routine 03/16/2020 020 Bon DIFFERENTIAL DIFFERENTIAL 6:24 PM EDT 06:24:00 P M [facility] nc HC CDIFF TOXIN HC CDIFF TOXIN Routine 03/16/2020 020 Bon AMP PROB AMP PROB 6:11 PM EDT 06:11:00 PM [facility] nc XR WRIST RT XR WRIST RT Routine 03/16/2020 03/16/2020 Bon AP/LAT AP/LAT 2:50 PM EDT 02:50:39 PM [facility] nc CT CHEST ABD PELV CT CHEST ABD PELV Routine 03/16/2020 0 03/16/2020 Bon WO CONT WO CONT 1:40 PM EDT 01:40:49 PM [facility] nc CBC WITH CBC WITH Routine 03/16/2020 03/16/2020 Bon AUTOMATED DIFF AUTOMATED DIFF 4:16 AM EDT 04:16: 00 AM [facility] nc METABOLIC PANEL, METABOLIC PANEL, Routine 03/16/2020 Petre COMPREHENSIVE COMPREHENSIVE 4:16 AM EDT 04:16:00 AM [facility] nc HC CULTURE BLOOD HC CULTURE BLOOD Routine 03/15/2020 Bon 11:45 AM EDT 11:45:00 AM [facility] nc HC CULTURE BLOOD HC CULTURE BLOOD Routine 03/15/2020 Bon 11:40 AM EDT 11:40:00 AM [facility] nc HC VANCOMYCIN HC VANCOMYCIN Timed 03/15/2020 0 Bon TROUGH TROUGH 9:55 AM EDT 09:55:00 AM [facility] nc HC EIA QL SAP BASIS HC EIA QL SAP BASIS Routine 03/15/2020 0 Bon STREP GROUPB AG STREP GROUPB AG 8:40 AM EDT 08:4 0:00 AM [facility] nc CBC WITH CBC WITH Routine 03/15/2020 03/15/2020 Bon AUTOMATED DIFF AUTOMATED DIFF 3:50 AM EDT 03:50: 00 AM [facility] nc METABOLIC PANEL, METABOLIC PANEL, Routine 03/15/2020 Bon COMPREHENSIVE COMPREHENSIVE 3:50 AM EDT 03:50:00 AM [facility] nc HC CULTURE HC CULTURE Routine 03/14/2020 03/14/2020 Bon RESPIRATORY RESPIRATORY 11:00 PM EDT 11:00:00 PM [facility] nc HC EIA QL SGL HC EIA QL SGL Routine 03/14/2020 0 Bon ANTIGEN ANTIGEN 8:40 AM EDT 08:40:00 AM [facility] nc XR CHEST PORT XR CHEST PORT Routine 03/14/2020 0 Bon 5:31 AM EDT 05:31:15 AM [facility] nc CBC WITH CBC WITH Routine 03/14/2020 03/14/2020 Bon AUTOMATED DIFF AUTOMATED DIFF 4:34 AM EDT 04:34: 00 AM [facility] nc METABOLIC PANEL, METABOLIC PANEL, Routine 03/14/2020 Bon COMPREHENSIVE COMPREHENSIVE 4:34 AM EDT 04:34:00 AM [facility] nc HC LACTIC ACID HC LACTIC ACID Routine 03/14/2020 020 Bon 4:34 AM EDT 04:34:00 AM [facility] nc HC ABO BLOOD TYPE HC ABO BLOOD TYPE Routine 03/14/2020 0 03/14/2020 Bon 4:32 AM EDT 04:32:00 AM [facility] nc HC CULTURE BLOOD HC CULTURE BLOOD STAT 03/13/2020 Bon 9:12 PM EDT 09:12:00 PM [facility] nc HC CULTURE BLOOD HC CULTURE BLOOD STAT 03/13/2020 Bon 9:00 PM EDT 09:00:00 PM [facility] nc DUPLEX UPPER EXT DUPLEX UPPER EXT Routine 03/13/2020 Bon VENOUS RIGHT VENOUS RIGHT 4:43 PM EDT 04:43:00 P M [facility] nc HC LACTIC ACID HC LACTIC ACID STAT 03/13/2020 020 Bon 3:35 PM EDT 03:35:00 PM [facility] nc CT HEAD WO CONT CT HEAD WO CONT STAT 03/13/202003/13 Bon 2:22 PM EDT 02:22:24 PM [facility] nc HC REF SARS-COV-2 HC REF SARS-COV-2 Routine 03/13/2020 0 03/13/2020 Bon HIGH THROUGHPUT HIGH THROUGHPUT 1:15 PM EDT 01:1 5:00 PM [facility] EDT [facility] I nc HC BLOOD GAS W HC BLOOD GAS W Routine 03/13/2020 020 Bon CALC O2/VENOUS CALC O2/VENOUS 12:25 PM EDT 12:25 :00 PM [facility] nc XR CHEST PORT XR CHEST PORT STAT 03/13/2020 0 Bon 11:18 AM EDT 11:18:55 AM [facility] nc URINALYSIS W/ URINALYSIS W/ STAT 03/13/2020 0 Bon RFLX MICROSCOPIC RFLX MICROSCOPIC 10:50 AM EDT 1 0:50:00 AM [facility] nc URINE MICROSCOPIC URINE MICROSCOPIC Routine 03/13/2020 0 03/13/2020 Bon 10:50 AM EDT 10:50:00 AM [facility] nc CULTURE, URINE CULTURE, URINE STAT 03/13/2020 020 Bon 10:50 AM EDT 10:50:00 AM [facility] nc HC LACTIC ACID HC LACTIC ACID STAT 03/13/2020 020 Bon 10:50 AM EDT 10:50:00 AM [facility] nc HC CULTURE BLOOD HC CULTURE BLOOD STAT 03/13/2020 Bon 10:40 AM EDT 10:40:00 AM [facility] nc PROTHROMBIN TIME PROTHROMBIN TIME STAT 03/13/2020 Bon + INR + INR 10:40 AM EDT 10:40:00 AM [facility] nc CBC WITH CBC WITH STAT 03/13/2020 03/13/2020 Bon AUTOMATED DIFF AUTOMATED DIFF 10:40 AM EDT 10:40 :00 AM [facility] nc HC PARTIAL HC PARTIAL STAT 03/13/2020 03/13/2020 Bon THROMBOPLASTIN/ THROMBOPLASTIN/ 10:40 AM EDT 10: 40:00 AM [facility] PTT PTT [facility] nc HC TROPONIN I HC TROPONIN I STAT 03/13/2020 0 Bon QUANT QUANT 10:40 AM EDT 10:40:00 AM [facility] nc METABOLIC PANEL, METABOLIC PANEL, STAT 03/13/2020 Bon COMPREHENSIVE COMPREHENSIVE 10:40 AM EDT 10:40:0 0 [facility] LIPASE LIPASE STAT 03/13/2020 03/13/2020 Jesus n 10:40 AM EDT 10:40:00 AM [facility] I nc CENTRAL VENOUS CENTRAL VENOUS STAT 03/13/2020 020 Bon LINE INSERTION LINE INSERTION 10:31 AM EDT 10:31 :44 AM [facility] nc EKG, 12 LEAD, EKG, 12 LEAD, STAT 03/13/2020 0 Bon INITIAL INITIAL 10:28 AM EDT 10:28:08 AM [facility] nc HC CULTURE BLOOD HC CULTURE BLOOD STAT 03/13/2020 Bon 10:20 AM EDT 10:20:00 AM [facility] nc Portable Chest X-Ray Portable Chest X-Ray 03/13/2020 12:00:00 AM [facility] EDT Portable Chest X-Ray Portable Chest X-Ray 03/12/2020 12:00:00 AM [facility] EDT Results ID Date Data Source [id number] 06/23/2020 10:25:00 AM EDT [facility] Name Value Range Interpretation Code Description Data Annabelle rce(s) Supporting Document(s ) HOLOGIC [facility] SARS-CoV-2 TMA PCR This lab [facility] and reported by [facility]. ID Date Data Source [id number] 04/22/2020 08:51:00 AM EDT [facility] ospital Name Value Range Interpretation Description Data Sup porting Code Source(s) Document(s ) BLOOD UREA 28 mg/dL 7-18 Above high normal [facility] NITROGEN Hospital CREATININE 0.70 0.70-1.3 Normal (applies [...] >= 60mL/min/1.73m2 If patient is Afri can [place], multiply printed result by1.21NOTE: A calculated eGFR of <60 woods ggests chronic kidneydisease, but only if found consistently over at least 3months . A calculated result of <15 is consistent with renalfailure. CREATININE CLEARANCE CALC 74.00 mL/min > 60 mL/min [facility] Medication dose adjustment may be needed for [...] unstable renal function. ID Date Data Source [id number] 04/22/2020 08:51:00 AM EDT [facility] ospital Name Value Range Interpretation Description Data Sup porting Code Source(s) Document(s ) WHITE BLOOD 4.9 3.5-9.1 Normal (applies [facility] COUNT 10(3)/uL to non-numeric Hospital results) RED BLOOD COUNT 3.78 4.30-5.6 Below low normal [facility]L 0 Hospital HEMOGLOBIN 11.3 13.3-16. Below low normal [facility] g/dL 2 Hospital HEMATOCRIT 34.7 % 38.8-46. Below low normal [place] [address] Hospital MEAN 92 fl 79-93 Normal (applies [facility] CORPUSCULAR to non-numeric Hospital VOLUME results) MEAN 30 pg 27-32 Normal (applies [facility] CORPUSCULAR to non-numeric Hospital HEMOGLOBIN results) MEAN 33 g/dl 32-36 Normal (applies [facility] CORPUSCULAR HGB to non-numeric Hospital CONC results) RED CELL 15.9 % 0.0-14.5 Above high normal [facility] WIDTH PLATELET COUNT [phone] Normal (applies Arina Hawkins 10(3)/uL to non-numeric Hospital results) MEAN PLATELET 11.0 fl 9.0-13.0 Normal (applies Arina Jurado s VOLUME to non-numeric Hospital results) ID Date Data Source [id number] 04/22/2020 02:28:00 AM EDT [facility] Name Value Range Interpretation Code Description Data Annabelle rce(s) Supporting Document(s ) SARS-CoV-2 [facility] , RNA This lab was [facility] and reported by [employer]. ID Date Data Source [id number] 04/18/2020 03:40:00 PM EDT [facility] Leiva ospital SPOKE TO SAM MURCIAAHAM COURTNEY LUNDBERG @ 80EAD BACK AND VERIFIEDResult Reference RangeNot Detected Not DetectedNOTE: Please consider re-collection of a new specimen, ifclini risa indicated.NOTE: The COVID-19 assay has been cleared by the U.S. Foodand Drug Ad ministration under the Emergency UseAuthorization (EUA). [employer] [facility] oratories is designatedas a high complexity laboratory by the Clinical LaboratoryImp rovement Amendments of 1988(CLIA) and is qualified toperform this test. ASSAY INF ORMATION: Real Time RT-PCRPerformed by:[facility], [address] [place], [place] [id number] Anson Reyes M.D.[employer] Name Value Range Interpretation Code Description Data Annabelle rce(s) Supporting Document(s ) ID Date Data Source [id number] 04/18/2020 12:00:00 AM EDT [facility] Name Value Range Interpretation Code Description Data Annabelle rce(s) Supporting Document(s ) 2019-nCoV [facility] RNA XXX BENITO+probe- Imp This lab was ordered by ARINA LEIVA [facility] and reported by [employer] ID Date Data Source [id number] 04/17/2020 02:39:00 PM EDT [facility] ospital [...] Supporting Document(s ) ID Date Data Source [id number] 04/15/2020 02:40:00 PM EDT [facility] Le[facility] H ospital CALLED TO JUAN ROJAS/COURTNEY Hernandez @1425Result Reference RangeNot Detected Not Detected NOTE: Please consider re-collection of a new specimen, ifclinically indicated.NOTE: T he COVID-19 assay has been cleared by the U.S. Foodand Drug Administration under t he Emergency UseAuthorization (EUA). [facility] is designateda s a high complexity laboratory by the Clinical LaboratoryImprovement Amendment s of 1988(CLIA) and is qualified toperform this test. ASSAY INFORMATION: Real Time RT-PCRPerformed by:[facility], [address] [place] [address] Anson Reyes M.D.[employer] Teacher Name Value Range Interpretation Code Description Data Annabelle rce(s) Supporting Document(s ) ID Date Data Source [id number] 04/15/2020 08:22:00 AM EDT [facility] o[facility]ital Name Value Range Interpretation Description Data Sup porting Code Source(s) Document(s ) VALPROIC 28.8 50.0-100. Below low normal Arina Leiva ACID ug/mL 0 Hospital (DEPAKENE) LEVEL ID Date Data Source [id number] 04/15/2020 08:22:00 AM EDT [facility] Leiva H ospital Name Value Range Interpretation Description Data Sup porting Code Source(s) Document(s ) BLOOD UREA 22 mg/dL 7-18 Above high normal Arina Leiva NITROGEN Hospital CREATININE 0.69 0.70-1.3 Below low normal [facility] mg/dL 0 Hospital SODIUM LEVEL 132 136-145 Below low normal [facility] s mmol/L Hospital POTASSIUM 4.1 3.5-5.1 Normal (applies [facility] LEVEL mmol/L to non-numeric Hospital results) BUN/CREATININE 31.8 12.0-20. Above high normal Arina H ayes RATIO 0 Hospital EST GLOMERULAR > 60.0 > 60 [facility] FILTRATION mL/min/ mL/min Hospital RATE GFR ESTIMATE MDRD Equation (Modification of Diet in RenalDisease). Reference range is >= 60mL/min/1.73m2 If patient is Afri can [place], multiply printed result by1.21NOTE: A calculated eGFR of <60 woods ggests chronic kidneydisease, but only if found consistently over at least 3months . A calculated result of <15 is consistent with renalfailure. CREATININE CLEARANCE CALC 74.00 mL/min > 60 mL/min [facility] Medication dose adjustment may be needed for [...] unstable renal function. ID Date Data Source [id number] 04/15/2020 08:22:00 AM EDT [facility] H ospital Name Value Range Interpretation Description Data Sup porting Code Source(s) Document(s ) WHITE BLOOD 6.0 3.5-9.1 Normal ([facility] COUNT 10(3)/uL to non-numeric Hospital results) RED BLOOD COUNT 3.34 4.30-5.6 Below low normal Arina H ayes 10(6)/uL 0 Hospital HEMOGLOBIN 10.1 13.3-16. Below low normal [facility] g/dL 2 Hospital HEMATOCRIT 31.3 % 38.8-46. Below low normal [place] [address] Hospital MEAN 94 fl 79-93 Above high normal [facility] CORPUSCULAR Hospital VOLUME MEAN 30 pg 27-32 Normal (applies [facility] CORPUSCULAR to non-numeric Hospital HEMOGLOBIN results) MEAN 32 g/dl 32-36 Normal (applies [facility] CORPUSCULAR HGB to non-numeric Hospital CONC results) RED CELL 17.1 % 0.0-14.5 Above high normal [facility] DISTRIBUTION Hospital WIDTH PLATELET COUNT [phone] Normal (applies [facility] es 10(3)/uL to non-numeric Hospital results) MEAN PLATELET 10.5 fl 9.0-13.0 Normal (applies [facility] VOLUME to non-numeric Hospital results) ID Date Data Source [id number] 04/15/2020 12:00:00 AM EDT [facility] Name Value Range Interpretation Code Description Data Annabelle rce(s) Supporting Document(s ) 2019-nCoV [facility] RNA XXX BENITO+probe- Imp This lab was ordered by [facility] and reported by [employer]. ID Date Data Source [id number] 04/11/2020 09:27:00 AM EDT [facility] Name Value Range Interpretation Description Data Sup porting Code Source(s) Document(s ) TSH REFLEX 1.73 0.36-3.74 Normal (applies to [facility] uIU/ml non-numeric Hospital results) Ambulatory patients with [...] erferewith this assay. ID Date Data Source [id number] 04/11/2020 09:27:00 AM EDT Arina Torres ospital Name Value Range Interpretation Description Data Sup porting Code Source(s) Document(s ) BLOOD UREA 25 mg/dL 7-18 Above high normal [facility] NITROGEN Hospital CREATININE 0.79 0.70-1.3 Normal (applies [facility] mg/dL 0 to non-numeric Hospital results) SODIUM LEVEL 136 136-145 Normal (applies [facility] mmol/L to non-numeric Hospital results) POTASSIUM 4.1 3.5-5.1 Normal (applies [facility] LEVEL mmol/L to non-numeric Hospital results) BUN/CREATININE 31.6 12.0-20. Above high normal Arina H ayes RATIO 0 Hospital EST GLOMERULAR > 60.0 > 60 [facility] FILTRATION mL/min/ mL/min Hospital RATE GFR ESTIMATE MDRD Equation (Modification of Diet in RenalDisease). Reference range is >= 60mL/min/1.73m2 If patient is Afri can [place], multiply printed result by1.21NOTE: A calculated eGFR of <60 woods ggests chronic kidneydisease, but only if found consistently over at least 3months . A calculated result of <15 is consistent with renalfailure. CREATININE CLEARANCE CALC 74.00 mL/min > 60 mL/min [facility] Medication dose adjustment may be needed for [...] unstable renal function. ID Date Data Source [id number] 04/11/2020 09:27:00 AM EDT [facility]ital [...] 31 g/dl 32-36 Below low normal Arina Leiva CORPUSCULAR HGB Hospital CONC RED CELL 18.0 % 0.0-14.5 Above high normal Arina Leiva DISTRIBUTION Hospital WIDTH PLATELET COUNT [phone] Normal (applies Arina Hay es 10(3)/uL to non-numeric Hospital results) MEAN PLATELET 10.2 fl 9.0-13.0 Normal (applies Arina Rhiannon s VOLUME to non-numeric Hospital results) ID Date Data Source [id number] 04/10/2020 10:05:00 AM EDT Arina Leiva H [...] >= 60mL/min/1.73m2 If patient is Afri can [place], multiply printed result by1.21NOTE: A calculated eGFR of <60 woods ggests chronic kidneydisease, but only if found consistently over at least 3months . A calculated result of <15 is consistent with renalfailure. CREATININE CLEARANCE CALC 72.00 mL/min > 60 mL/min [facility] Medication dose adjustment may be needed for [...] unstable renal function. ID Date Data Source [id number] 04/09/2020 11:00:00 AM EDT [facility] SPOKE TO DONA DYE AND JAE LUNDBERG 1036 04/10/2020READ BACK AND VERIFIEDResult Reference RangeNot Detecte d Not DetectedNOTE: Please consider re-collection of a new specimen, ifclini risa indicated.NOTE: The COVID-19 assay has been cleared by the U.S. Foodand Drug Ad ministration under the Emergency UseAuthorization (EUA). [employer] oratories is designatedas a high complexity laboratory by the Clinical LaboratoryImp rovement Amendments of 1988(CLIA) and is qualified toperform this test. ASSAY INF ORMATION: Real Time RT-PCRPerformed by:[facility], [address] [place], [place] [id number] Anson Reyes M.D.[employer] Teacher Name Value Range Interpretation Code Description Data Annabelle rce(s) Supporting Document(s ) ID Date Data Source [id number] 04/09/2020 07:57:00 AM EDT Arinanando cardozo Name Value Range Interpretation Description Data Sup porting Code Source(s) Document(s ) BLOOD UREA 23 mg/dL 7-18 Above high normal [facility] NITROGEN [facility] CREATININE 0.85 0.70-1.3 Normal (applies [facility] mg/dL 0 to non-numeric Hospital results) SODIUM LEVEL 135 136-145 Below low normal [facility] s mmol/L Hospital POTASSIUM 4.4 3.5-5.1 Normal (applies [facility] LEVEL mmol/L to non-numeric Hospital results) BUN/CREATININE 27.0 12.0-20. Above high normal [facility] RATIO 0 Hospital EST GLOMERULAR > 60.0 > 60 [facility] FILTRATION mL/min/ mL/min Hospital RATE GFR ESTIMATE MDRD Equation (Modification of Diet in RenalDisease). Reference range is >= 60mL/min/1.73m2 If patient is Afri can [place], multiply printed result by1.21NOTE: A calculated eGFR of <60 woods ggests chronic kidneydisease, but only if found consistently over at least 3months . A calculated result of <15 is consistent with renalfailure. CREATININE CLEARANCE CALC 70.00 mL/min > 60 mL/min [facility] Medication dose adjustment may be needed for [...] unstable renal function. ID Date Data Source [id number] 04/09/2020 12:00:00 AM EDT [facility] Name Value Range Interpretation Code Description Data Annabelle rce(s) Supporting Document(s ) 2019-nCoV [facility] RNA XXX BENITO+probe- Imp This lab was ordered by [facility] and reported by [employer]. ID Date Data Source [id number] 04/08/2020 01:46:00 PM EDT Arina Leiva H [...] Supporting Document(s ) ID Date Data Source [id number] 04/08/2020 07:03:00 AM EDT [facility] Name Value Range Interpretation Description Data Sup porting Code Source(s) Document(s ) WHITE BLOOD 4.7 3.5-9.1 Normal (applies Arina Leiva COUNT 10(3)/uL to non-numeric Hospital results) RED BLOOD COUNT 2.82 4.30-5.6 Below low normal Arina H ayes 10(6)/uL 0 Hospital HEMOGLOBIN 8.5 g/dL 13.3-16. Below low normal [facility] 2 [facility] HEMATOCRIT 26.6 % 38.8-46. Below low normal [place] [address] Hospital MEAN 94 fl 79-93 Above high normal [facility] CORPUSCULAR Hospital VOLUME MEAN 30 pg 27-32 Normal ([facility] CORPUS[facility]ULAR to non-numeric Hospital HEMOGLOBIN results) MEAN 32 g/dl 32-36 Normal (applies [facility] CORPUSCULAR HGB to non-numeric Hospital CONC results) RED CELL 18.4 % 0.0-14.5 Above high normal [facility] DISTRIBUTION Hospital WIDTH PLATELET COUNT 201 165-415 Normal (applies Arina Hay es 10(3)/uL to non-numeric Hospital results) MEAN PLATELET 10.4 fl 9.0-13.0 Normal (applies Arina Rhiannon s VOLUME to non-numeric Hospital results) ID Date Data Source [id number] 04/08/2020 07:03:00 AM EDT [facility] Name Value Range Interpretation Description Data Sup porting Code Source(s) Document(s ) VALPROIC 25.3 50.0-100. Below low normal [facility] ACID ug/mL 0 Hospital (DEPAKENE) LEVEL ID Date Data Source [id number] 04/08/2020 07:03:00 AM EDT [facility] Name Value Range Interpretation Description Data Sup porting Code Source(s) Document(s ) BLOOD UREA 23 mg/dL 7-18 Above high normal [facility] NITROGEN Hospital CREATININE 0.81 0.70-1.3 Normal ([facility] mg/dL 0 to non-numeric Hospital results) SODIUM LEVEL 134 136-145 Below low normal [facility] s mmol/L Hospital POTASSIUM 4.1 3.5-5.1 Normal ([facility] LEVEL mmol/L to non-numeric Hospital results) BUN/CREATININE 28.3 12.0-20. Above high normal [facility] a[facility] RATIO 0 Hospital EST GLOMERULAR > 60.0 > 60 [facility] FILTRATION mL/min/ mL/min Hospital RATE GFR ESTIMATE MDRD Equation (Modification of Diet in RenalDisease). Reference range is >= 60mL/min/1.73m2 If patient is Afri can [place], multiply printed result by1.21NOTE: A calculated eGFR of <60 woods ggests chronic kidneydisease, but only if found consistently over at least 3months . A calculated result of <15 is consistent with renalfailure. CREATININE CLEARANCE CALC 73.00 mL/min > 60 mL/min [facility] Medication dose adjustment may be needed for [...] unstable renal function. ID Date Data Source [id number] 04/04/2020 08:48:00 AM EDT [facility] Name Value Range Interpretation Description Data Sup porting Code Source(s) Document(s ) BLOOD UREA 35 mg/dL 7-18 Above high normal [facility] NITROGEN [facility] CREATININE 1.01 0.70-1.3 Normal (applies [facility] mg/dL 0 to non-numeric Hospital results) SODIUM LEVEL 133 136-145 Below low normal [facility] s mmol/L Hospital POTASSIUM 4.3 3.5-5.1 Normal (applies [facility] LEVEL mmol/L to non-numeric Hospital results) BUN/CREATININE 34.6 12.0-20. Above high normal [facility] a[facility] RATIO 0 Hospital EST GLOMERULAR > 60.0 > 60 [facility] FILTRATION mL/min/ mL/min Hospital RATE GFR ESTIMATE MDRD Equation (Modification of Diet in RenalDisease). Reference range is >= 60mL/min/1.73m2 If patient is Afri can [place], multiply printed result by1.21NOTE: A calculated eGFR of <60 woods ggests chronic kidneydisease, but only if found consistently over at least 3months . A calculated result of <15 is consistent with renalfailure. CREATININE CLEARANCE CALC 64.28 mL/min > 60 mL/min [facility] Medication dose adjustment may be needed for [...] unstable renal function. ID Date Data Source [id number] 04/04/2020 08:48:00 AM EDT [facility] ospital Name Value Range Interpretation Description Data Sup porting Code Source(s) Document(s ) WHITE BLOOD 6.7 3.5-9.1 Normal (applies [facility] COUNT 10(3)/uL to non-numeric Hospital results) RED BLOOD COUNT 2.78 4.30-5.6 Below low normal [facility] a[facility] 10(6)/uL 0 Hospital HEMOGLOBIN 8.3 g/dL 13.3-16. Below low normal [facility] 2 [facility] HEMATOCRIT 25.9 % 38.8-46. Below low normal [address] MEAN 93 fl 79-93 Normal (applies [facility] CORPUSCULAR to non-numeric Hospital VOLUME results) MEAN 30 pg 27-32 Normal (applies [facility] CORPUSCULAR to non-numeric Hospital HEMOGLOBIN results) MEAN 32 g/dl 32-36 Normal (applies [facility] CORPUSCULAR HGB to non-numeric Hospital CONC results) RED CELL 19.3 % 0.0-14.5 Above high normal [facility] DISTRIBUTION [facility] WIDTH PLATELET COUNT 222 165-415 Normal (applies Ar[facility] Hay es 10(3)/uL to non-numeric Hospital results) MEAN PLATELET 10.4 fl 9.0-13.0 Normal (applies [facility] s VOLUME to non-numeric Hospital results) ID Date Data Source [id number] 04/03/2020 09:58:00 AM EDT [facility] o[facility] MBS VIDEO FLUOROSCOPY (04/02/2020) Clinical Indication: [...] Supporting Document(s ) ID Date Data Source [id number] 04/03/2020 06:40:00 AM EDT [facility] Name Value Range Interpretation Description Data Sup porting Code Source(s) Document(s ) WHITE BLOOD 5.6 3.5-9.1 Normal (applies [facility] COUNT 10(3)/uL to non-numeric Hospital results) RED BLOOD COUNT 2.71 4.30-5.6 Below low normal [facility] ayes 10(6)/uL 0 Hospital HEMOGLOBIN 8.2 g/dL 13.3-16. Below low normal [address] HEMATOCRIT 25.1 % 38.8-46. Below low normal [address] MEAN 93 fl 79-93 Normal (applies [facility] CORPUSCULAR to non-numeric Hospital VOLUME results) MEAN 30 pg 27-32 Normal (applies [facility] CORPUSCULAR to non-numeric Hospital HEMOGLOBIN results) MEAN 33 g/dl 32-36 Normal (applies [facility] CORPUSCULAR HGB to non-numeric Hospital CONC results) RED CELL 19.1 % 0.0-14.5 Above high normal [facility] WIDTH PLATELET COUNT 224 165-415 Normal (applies [facility] es 10(3)/uL to non-numeric Hospital results) MEAN PLATELET 10.5 fl 9.0-13.0 Normal (applies [facility] VOLUME to non-numeric Hospital results) NEUTROPHILS % 83.0 % [facility] IMMATURE 0.4 % [facility] GRANULOCYTE % Hospital LYMPH % 5.5 % [facility] MONO % 10.9 % [facility] EOS % 0.0 % [facility] BASO % 0.2 % [facility] NEUTROPHILS # 4.66 1.42-6.3 Normal (applies [facility] s 10(3)/uL 4 to non-numeric Hospital results) IMMATURE 0.02 0.00-0.4 Normal (applies [facility] GRANULOCYTE # 10(3)/uL 5 to non-numeric Hospital results) LYMPH # 0.31 0.71-4.5 Below low normal [facility] 10(3)/uL 3 Hospital MONO # 0.61 0.14-0.7 Normal (applies [facility] 10(3)/uL 2 to non-numeric Hospital results) EOS # 0.00 0.00-0.5 Normal (applies [facility] 10(3)/uL 4 to non-numeric Hospital results) BASO # 0.01 0.00-0.1 Normal ([facility] 10(3)/uL 8 to non-numeric Hospital results) ID Date Data Source [id number] 04/01/2020 10:58:00 AM EDT [facility] ospital CHEST X-RAY (04/01/2020) History: Pneumonia. [...] Supporting Document(s ) ID Date Data Source [id number] 04/01/2020 07:20:00 AM EDT [facility] Name Value Range Interpretation Description Data Sup porting Code Source(s) Document(s ) VALPROIC 18.1 50.0-100. Below low normal [facility] ACID ug/mL 0 Hospital (DEPAKENE) LEVEL ID Date Data Source [id number] 04/01/2020 07:20:00 AM EDT [facility] H [...] >= 60mL/min/1.73m2 If patient is Afri can [place], multiply printed result by1.21NOTE: A calculated eGFR of <60 woods ggests chronic kidneydisease, but only if found consistently over at least 3months . A calculated result of <15 is consistent with renalfailure. CREATININE CLEARANCE CALC 72.74 mL/min > 60 mL/min [facility] Medication dose adjustment may be needed for [...] unstable renal function. ID Date Data Source [id number] 04/01/2020 07:20:00 AM EDT [facility] o[facility]ital Name Value Range Interpretation Description Data Sup porting Code Source(s) Document(s ) WHITE BLOOD 5.2 3.5-9.1 Normal (applies [facility] COUNT 10(3)/uL to non-numeric Hospital results) RED BLOOD COUNT 2.68 4.30-5.6 Below low normal [facility] 10(6)/uL 0 Hospital HEMOGLOBIN 7.9 g/dL 13.3-16. Below low normal [address] HEMATOCRIT 25.1 % 38.8-46. Below low normal [address] MEAN 94 fl 79-93 Above high normal [facility] CORPUSCULAR Hospital VOLUME MEAN 30 pg 27-32 Normal (applies [facility] CORPUSCULAR to non-numeric Hospital HEMOGLOBIN results) MEAN 32 g/dl 32-36 Normal (applies [facility] CORPUSCULAR HGB to non-numeric Hospital CONC results) RED CELL 19.9 % 0.0-14.5 Above high normal [facility] DISTRIBUTION Hospital WIDTH PLATELET COUNT 215 165-415 Normal (applies [facility] es 10(3)/uL to non-numeric Hospital results) MEAN PLATELET 11.2 fl 9.0-13.0 Normal (applies [facility] s VOLUME to non-numeric Hospital results) ID Date Data Source [id number] 03/31/2020 08:41:00 AM EDT [facility] ospital Name Value Range Interpretation Code Description Data Annabelle rce(s) Supporting Document(s ) GLUCOSE 95 mg/dL 74-100 Normal (applies to [facility] non-numeric Hospital results) "Assay results affected by Sulfasalazine therapy. If thepatient is taking this drug, please contact the laboratory". BLOOD UREA NITROGEN 19 mg/dL 7-18 Above high normal [facility] CREATININE 0.92 mg/dL 0.70-1.30 Normal (applies to [facility] non-numeric results) SODIUM LEVEL 132 mmol/L 136-145 Below low normal [facility] POTASSIUM LEVEL 4.3 mmol/L 3.5-5.1 Normal (applies to [facility] non-numeric results) CHLORIDE LEVEL 94 mmol/L 98-[address] [facility] CARBON DIOXIDE LEVEL 36 mmol/L 21-32 Above high normal [facility] ANION GAP 2 mmol/L 2-8 Normal (applies to [facility] non-numeric results) CALCULATED RESULT BUN/CREATININE RATIO 20.6 12.0-20.0 Above high [facility] yes normal Hospital EST GLOMERULAR > 60.0 > 60 mL/min [facility] FILTRATION RATE mL/min/ Hospital GFR ESTIMATE MDRD Equation (Modification of Diet in RenalDisease). Reference range is >= 60mL/min/1.73m2 If patient is Afri can [place], multiply printed result by1.21NOTE: A calculated eGFR of <60 woods ggests chronic kidneydisease, but only if found consistently over at least 3months . A calculated result of <15 is consistent with renalfailure. CREATININE CLEARANCE CALC 71.16 mL/min > 60 mL/min [facility] Medication dose adjustment may be needed for [...] OSMOLALITY CALCULATED 266 280-301 Below low normal [facility] CALCULATED RESULT ID Date Data Source [id number] 03/31/2020 08:41:00 AM EDT [facility] o[facility]ital Name Value Range Interpretation Description Data Sup porting Code Source(s) Document(s ) WHITE BLOOD 6.7 3.5-9.1 Normal (applies [facility] COUNT 10(3)/uL to non-numeric Hospital results) RED BLOOD COUNT 2.94 4.30-5.6 Below low normal [facility] ayes 10(6)/uL 0 Hospital HEMOGLOBIN 8.8 g/dL 13.3-16. Below low normal [address] HEMATOCRIT 27.4 % 38.8-46. Below low normal [address] MEAN 93 fl 79-93 Normal (applies [facility] CORPUSCULAR to non-numeric Hospital VOLUME results) MEAN 30 pg 27-32 Normal (applies [facility] CORPUSCULAR to non-numeric Hospital HEMOGLOBIN results) MEAN 32 g/dl 32-36 Normal (applies [facility] CORPUSCULAR HGB to non-numeric Hospital CONC results) RED CELL 20.1 % 0.0-14.5 Above high normal [facility] WIDTH PLATELET COUNT 244 165-415 Normal (applies [facility] es 10(3)/uL to non-numeric Hospital results) MEAN PLATELET 10.7 fl 9.0-13.0 Normal (applies [facility] s VOLUME to non-numeric Hospital results) NEUTROPHILS % 75.6 % [facility] IMMATURE 0.4 % [facility] GRANULOCYTE % Hospital LYMPH % 7.5 % [facility] MONO % 15.1 % [facility] EOS % 1.0 % [facility] BASO % 0.4 % [facility] NEUTROPHILS # 5.05 1.42-6.3 Normal (applies [facility] s 10(3)/uL 4 to non-numeric Hospital results) IMMATURE 0.03 0.00-0.4 Normal (applies [facility] GRANULOCYTE # 10(3)/uL 5 to non-numeric Hospital results) LYMPH # 0.50 0.71-4.5 Below low normal [facility] 10(3)/uL 3 Hospital MONO # 1.01 0.14-0.7 [facility] EOS # 0.07 0.00-0.5 [facility] 10([facility]uL 4 to non-numeric Hospital results) BASO # 0.03 0.00-0.1 Normal [facility] 10(3[facility]uL 8 to non-numeric Hospital results) ID Date Data Source [id number] 03/31/2020 06:00:00 AM EDT [facility] ospital What is the Source [place] PORTIndications for Urine Screen Metabolic Change Name Value Range Interpretation Description Data Sup porting Code Source(s) Document(s ) COLOR, URINE YELLOW STRAW [facility] APPEARANCE, CLEAR CLEAR [facility] GLUCOSE, NEG NEG [facility] URINE () [facility] BILIRUBIN, NEG NEG [facility] URINE [facility] KETONE, URINE NEG NEG [facility] UROBILINOGEN, 0.2 EU/dL 0.0-0.5 Normal (applies [facility] s URINE to non-numeric Hospital results) SPECIFIC 1.010 1.001-1. Normal (applies [facility] GRAVITY,URINE 035 to non-numeric Hospital results) OCCULT BLOOD NEG NEG [facility] PH Urine 8.5 U 4.6-8.0 Above high normal [facility] PROTEIN, TRACE NEG Abnormal (applies [facility] URINE to non-numeric Hospital results) NITRITE, NEG NEG [facility] URINE [facility] URINE NEG NEG [facility] LEUKOCYTE Hospital ESTERASE ID Date Data Source [id number] 03/29/2020 11:21:00 AM EDT [facility] ospital X-RAY RIGHT HIP AND PELVIS-3 [...] Supporting Document(s ) ID Date Data Source [id number] 03/29/2020 11:04:00 AM EDT [facility] H [...] Name Value Range Interpretation Code Description Data [facility] rce(s) Supporting Document(s ) ID Date Data Source [id number] 03/28/2020 07:50:00 AM EDT [facility] Leiva H [...] >= 60mL/min/1.73m2 If patient is Afri can [place], multiply printed result by1.21NOTE: A calculated eGFR of <60 woods ggests chronic kidneydisease, but only if found consistently over at least 3months . A calculated result of <15 is consistent with renalfailure. CREATININE CLEARANCE CALC 78.47 mL/min > 60 mL/min [facility] Medication dose adjustment may be needed for [...] unstable renal function. ID Date Data Source [id number] 03/28/2020 07:50:00 AM EDT [facility] o[facility]ital Name Value Range Interpretation Description Data Sup porting Code Source(s) Document(s ) WHITE BLOOD 5.5 3.5-9.1 Normal (applies [facility] COUNT 10(3)/uL to non-numeric Hospital results) RED BLOOD 2.54 4.30-5.6 Below low normal [facility] COUNT 10(6)/uL 0 Hospital HEMOGLOBIN 7.4 g/dL 13.3-16. Below lower panic [facility] 2 limits Hospital SPOKE TO LUCY THOMAS 0946 020READ BACK AND VERIFIED HEMATOCRIT 23.4 % 38.8-46.4 Below low normal [facility] MEAN CORPUSCULAR VOLUME 92 fl 79-93 Normal ([facility] to non-numeric Hospital results) MEAN CORPUSCULAR 29 pg 27-32 Normal (applies [facility] HEMOGLOBIN to non-numeric Hospital results) MEAN CORPUSCULAR HGB 32 g/dl 32-36 Normal (applies [facility] to non-numeric Hospital results) RED CELL DISTRIBUTION 19.4 % 0.0-14.5 Above high normal [facility] PLATELET COUNT 204 10(3)/uL 165-415 Normal (applies [facility] to non-numeric Hospital results) MEAN PLATELET VOLUME 11.4 fl 9.0-13.0 Normal (applies [facility] to non-numeric Hospital results) ID Date Data Source [id number] 03/27/2020 01:13:00 PM EDT [facility] ospital VENOUS DUPLEX DOPPLER ULTRASOUND - [...] Supporting Document(s ) ID Date Data Source [id number] 03/27/2020 10:00:00 AM EDT [facility] ospital Name Value Range Interpretation Code Description Data Annabelle rce(s) Supporting Document(s ) STOOL OCCULT NEG NEG [facility] ID Date Data Source [id number] 03/26/2020 01:36:00 PM EDT [facility] o[facility] Name Value Range Interpretation Code Description Data Annabelle rce(s) Supporting Document(s ) STOOL OCCULT NEG NEG [facility] ID Date Data Source [id number] 03/26/2020 12:25:00 PM EDT [facility] ospital CHEST X-RAY (03/26/2020) History: Cough. [...] Supporting Document(s ) ID Date Data Source [id number] 03/26/2020 07:29:00 AM EDT [facility] o[facility]ital Name Value Range Interpretation Code Description Data [facility] rce(s) Supporting Document(s ) D-DIMER,Q 3.70 <0.50 Abnormal (applies [facility] UANTITATI mcg/mL FEU to non-[facility] Hospital VE results) The D-Dimer [...] WARE 2006 11:295(2):199-207]For additional information, please refer to:http://education.Appcore/faq/KGG953(This link is being provided for informational /educationalpurposes only)Test performed by:[place], [place] [address]SiqvpdsmCon Toribio M.D. ID Date Data Source [id number] 03/26/2020 07:29:00 AM EDT [facility] Name Value Range Interpretation Code Description Data [facility](s) Supporting Document(s ) GLUCOSE 102 mg/dL 74-100 Above high normal [facility] "Assay results affected by Sulfasalazine therapy. If thepatient is taking this drug, please contact the laboratory". BLOOD UREA NITROGEN 18 mg/dL 7-18 Normal (applies to [facility] non-numeric results) Hospital CREATININE 0.75 mg/dL 0.70-1.30 Normal (applies to [facility] non-numeric results) Hospital SODIUM LEVEL 135 mmol/L 136-145 Below low normal [facility] POTASSIUM LEVEL 3.6 mmol/L 3.5-5.1 Normal (applies to [facility] non-numeric results) Hospital CHLORIDE LEVEL 100 mmol/L 98-107 Normal (applies to [facility] non-numeric results) Hospital CARBON DIOXIDE LEVEL 31 mmol/L 21-32 Normal (applies to [facility] non-numeric results) Hospital ANION GAP 4 mmol/L 2-8 Normal (applies to [facility] non-numeric results) Hospital CALCULATED RESULT BUN/CREATININE RATIO 24.0 12.0-20.0 Above high [facility] yes normal Hospital EST GLOMERULAR > 60.0 > 60 mL/min [facility] FILTRATION RATE mL/min/ [facility] GFR ESTIMATE MDRD Equation (Modification of Diet in RenalDisease). Reference range is >= 60mL/min/1.73m2 If patient is Afri can [place], multiply printed result by1.21NOTE: A calculated eGFR of <60 woods ggests chronic kidneydisease, but only if found consistently over at least 3months . A calculated result of <15 is consistent with renalfailure. CREATININE CLEARANCE CALC 82.39 mL/min > 60 mL/min [facility] Medication dose adjustment may be needed for [...] OSMOLALITY CALCULATED 272 280-301 Below low normal [facility] CALCULATED RESULT ID Date Data Source [id number] 03/26/2020 07:29:00 AM EDT [facility] ospital Name Value Range Interpretation Description Data Sup porting Code Source(s) Document(s ) PROTHROMBIN 10.9 9.4-11.5 Normal (applies [facility] TIME (PATIENT) SECONDS to non-numeric Hospital results) INR 1.05 [facility] INR RANGE IS DIAGNOSIS SPECIFICINR VALUE S <1.5 ARE NON-THERAPEUTICFOR INR >1.5, CONSULT MD ORDERS ID Date Data Source [id number] 03/26/2020 07:29:00 AM EDT [facility] ospital Name Value Range Interpretation Description Data Sup porting Code Source(s) Document(s ) PARTIAL 26.7 20.6-31 Normal (applies [facility] THROMBOPLASTIN SECONDS .9 to non-numeric Hospital TIME results) ID Date Data Source [id number] 03/26/2020 07:29:00 AM EDT [facility] o[facility] Name Value Range Interpretation Description Data Sup porting Code Source(s) Document(s ) WHITE BLOOD 4.8 3.5-9.1 Normal (applies [facility] COUNT 10(3)/uL to non-numeric Hospital results) RED BLOOD 2.28 4.30-5.6 Below low normal [facility] COUNT 10(6)/uL 0 Hospital HEMOGLOBIN 6.8 g/dL 13.3-16. Below lower panic [facility] 2 limits [facility] READ BACK AND VERIFIED BY JUAN ROGERS 834 AM.RESULTS REPEATED AND VERIFIED. HEMATOCRIT 20.4 % 38.8-46.4 Below lower panic limits [facility] READ BACK AND VERIFIED BY JUAN ROGERS 834 AM.RESULTS REPEATED AND VERIFIED. MEAN CORPUSCULAR 90 fl 79-93 Normal (applies to [facility] VOLUME non-numeric results) [facility] MEAN CORPUSCULAR 30 pg 27-32 Normal (applies to [facility] HEMOGLOBIN non-numeric results) [facility] MEAN CORPUSCULAR HGB 33 g/dl 32-36 Normal (applies to [facility] CONC non-numeric results) [facility] RED CELL DISTRIBUTION 18.7 % 0.0-14.5 Above high normal [facility] WIDTH Hospital PLATELET COUNT 176 10(3)/uL 165-415 [facility] Hospital MEAN PLATELET VOLUME 11.8 fl 9.0-13.0 Normal (applies to [facility] non-numeric results) Hospital ID Date Data Source [id number] 03/25/2020 07:30:00 PM EDT [facility] Name Value Range Interpretation Code Description Data Annabelle rce(s) Supporting Document(s ) STOOL OCCULT NEG NEG [facility] BLOOD Hospital ID Date Data Source [id number] 03/25/2020 02:11:00 PM EDT [facility] Name Value Range Interpretation Description Data Sup porting Code Source(s) Document(s ) ERYTHROCYTE 63 mm/hr 0-20 Above high normal [facility] SEDIMENTATION Hospital RATE ID Date Data Source [id number] 03/25/2020 02:11:00 PM EDT [facility] Name Value Range Interpretation Description Data Sup porting Code Source(s) Document(s ) C-REACTIVE 0.41 0.0-0.3 Above high normal [facility] PROTEIN INF mg/dL Hospital ID Date Data Source [id number] 03/25/2020 02:11:00 PM EDT [facility] Name Value Range Interpretation Description Data Sup porting Code Source(s) Document(s ) WHITE BLOOD 7.8 3.5-9.1 Normal (applies [facility] COUNT 10(3)/uL to non-numeric Hospital results) RED BLOOD COUNT 2.59 4.30-5.6 Below low normal [facility] Hospitales 10(6)/uL 0 Hospital HEMOGLOBIN 7.6 g/dL 13.3-16. Below low normal [facility] 2 [facility] HEMATOCRIT 23.2 % 38.8-46. Below low normal [address] MEAN 90 fl 79-93 Normal (applies [facility] CORPUSCULAR to non-numeric Hospital VOLUME results) MEAN 29 pg 27-32 Normal (applies [facility] CORPUSCULAR to non-numeric Hospital HEMOGLOBIN results) MEAN 33 g/dl 32-36 Normal (applies [facility] CORPUSCULAR HGB to non-numeric Hospital CONC results) RED CELL 18.5 % 0.0-14.5 Above high normal [facility] WIDTH PLATELET COUNT 191 165-415 Normal (applies [facility] es 10(3)/uL to non-numeric Hospital results) MEAN PLATELET 10.8 fl 9.0-13.0 Normal (applies [facility] s VOLUME to non-numeric Hospital results) ID Date Data Source [id number] 03/25/2020 08:52:00 AM EDT [facility] ospital Name Value Range Interpretation Description Data Sup porting Code Source(s) Document(s ) BLOOD UREA 19 mg/dL 7-18 Above high normal [facility] NITROGEN Hospital CREATININE 0.82 0.70-1.3 Normal (applies [facility] mg/dL 0 to non-numeric Hospital results) SODIUM LEVEL 135 136-145 Below low normal [facility] s mmol/L Hospital RESULTS REPEATED AND VERIFIED. POTASSIUM LEVEL 3.7 mmol/L 3.5-5.1 Normal (applies to [facility] non-numeric Hospital results) BUN/CREATININE 23.1 12.0-20.0 Above high normal [facility] ayes RATIO Hospital EST GLOMERULAR > 60.0 mL/min/ > 60 mL/min [facility] yes FILTRATION RATE [facility] GFR ESTIMATE MDRD Equation (Modification of Diet in RenalDisease). Reference range is >= 60mL/min/1.73m2 If patient is Afri can [place], multiply printed result by1.21NOTE: A calculated eGFR of <60 woods ggests chronic kidneydisease, but only if found consistently over at least 3months . A calculated result of <15 is consistent with renalfailure. CREATININE CLEARANCE CALC 80.38 mL/min > 60 mL/min [facility] Medication dose adjustment may be needed for [...] unstable renal function. ID Date Data Source [id number] 03/25/2020 08:52:00 AM EDT [facility] Name Value Range Interpretation Description Data Sup porting Code Source(s) Document(s ) VALPROIC 20.3 50.0-100. Below low normal [facility] ACID ug/mL 0 Hospital (DEPAKENE) LEVEL ID Date Data Source [id number] 03/25/2020 08:52:00 AM EDT [facility] Name Value Range Interpretation Description Data Sup porting Code Source(s) Document(s ) WHITE BLOOD 6.2 3.5-9.1 Normal ([facility] COUNT 10(3)/uL to non-numeric Hospital results) RED BLOOD 2.55 4.30-5.6 Below low normal [facility] COUNT 10(6)/uL 0 Hospital HEMOGLOBIN 7.3 g/dL 13.3-16. Below lower panic [facility] 2 limits Hospital SPOKE TO ASHER AKHTAR AT 0920 03/25/2020R EAD BACK AND VERIFIED HEMATOCRIT 22.8 % 38.8-46.4 Below low normal [facility] MEAN CORPUSCULAR VOLUME 89 fl 79-93 Normal (applies [facility] to non-numeric Hospital results) MEAN CORPUSCULAR 29 pg 27-32 Normal (applies [facility] HEMOGLOBIN to non-numeric Hospital results) MEAN CORPUSCULAR HGB 32 g/dl 32-36 Normal (applies [facility] en Leiva CONC to non-numeric Hospital results) RED CELL DISTRIBUTION 18.5 % 0.0-14.5 Above high normal [facility] PLATELET COUNT 192 10(3)/uL 165-415 Normal (applies [facility] to non-numeric Hospital results) MEAN PLATELET VOLUME 11.4 fl 9.0-13.0 Normal (applies Hel en [facility] to non-numeric Hospital results) ID Date Data Source [id number] 03/21/2020 07:41:00 AM EDT [facility] Name Value Range Interpretation Description Data Sup porting Code Source(s) Document(s ) BLOOD UREA 40 mg/dL 7-18 Above high normal [facility] NITROGEN Hospital CREATININE 1.01 0.70-1.3 Normal (applies [facility] mg/dL 0 to non-numeric Hospital results) SODIUM LEVEL 145 136-145 Normal ([facility] mmol/L to non-numeric Hospital results) POTASSIUM 3.0 3.5-5.1 Below low normal [facility] LEVEL mmol/L Hospital BUN/CREATININE 39.6 12.0-20. Above high normal [facility] a[facility] RATIO 0 Hospital EST GLOMERULAR > 60.0 > 60 [facility] FILTRATION mL/min/ mL/min Hospital RATE GFR ESTIMATE MDRD Equation (Modification of Diet in RenalDisease). Reference range is >= 60mL/min/1.73m2 If patient is Afri can [place], multiply printed result by1.21NOTE: A calculated eGFR of <60 woods ggests chronic kidneydisease, but only if found consistently over at least 3months . A calculated result of <15 is consistent with renalfailure. CREATININE CLEARANCE CALC 65.70 mL/min > 60 mL/min [facility] Medication dose adjustment may be needed for [...] unstable renal function. ID Date Data Source [id number] 03/21/2020 07:41:00 AM EDT [facility] H ospital Name Value Range Interpretation Description Data Sup porting Code Source(s) Document(s ) WHITE BLOOD 9.2 3.5-9.1 Above high normal [facility] COUNT 10(3)/uL Hospital RED BLOOD COUNT 2.65 4.30-5.6 Below low normal [facility] 10(6)/uL 0 Hospital HEMOGLOBIN 7.7 g/dL 13.3-16. Below low normal [facility] 2 [facility] HEMATOCRIT 24.2 % 38.8-46. Below low normal [facility] 4 Hospital MEAN 91 fl 79-93 Normal (applies [facility] CORPUSCULAR to non-numeric Hospital VOLUME results) MEAN 29 pg 27-32 Normal (applies [facility] CORPUSCULAR to non-numeric Hospital HEMOGLOBIN results) MEAN 32 g/dl 32-36 Normal (applies [facility] CORPUSCULAR HGB to non-numeric Hospital CONC results) RED CELL 18.9 % 0.0-14.5 Above high normal [facility] DISTRIBUTION Hospital WIDTH PLATELET COUNT 137 165-415 Below low normal [facility] yes 10(3)/uL Hospital MEAN PLATELET 11.8 fl 9.0-13.0 Normal (applies [facility] s VOLUME to non-numeric Hospital results) ID Date Data Source [id number] 03/20/2020 10:14:00 AM EDT [facility] ospital X-RAY CHEST (03/20/2020) History: Cough. [...] Supporting Document(s ) ID Date Data Source [id number] 03/20/2020 09:20:00 AM EDT [facility] o[facility]ital Room Air: Y Name Value Range Interpretation Description Data Sup porting Code Source(s) Document(s ) ARTERIAL 7.439 7.350-7. Normal (applies [facility] BLOOD GAS pH 450 to non-numeric Hospital results) ART BLD 33.0 mmHg 35-45 Below low normal [facility] PARTIAL Hospital PRESSURE CO2 ART BLD 88 mmHg 80-105 Normal (applies [facility] PARTIAL to non-numeric Hospital PRESSURE O2 results) ARTERIAL 22.4 meq/L 22-26 Normal (applies [facility] BLOOD GAS to non-numeric Hospital HCO3 results) ARTERIAL 2.0 -2.0-3.0 Normal (applies [facility] BLOOD GAS to non-numeric Hospital BASE EXCESS results) ARTERIAL BLD 97.0 % 95-98 Normal (applies [facility] GAS O2 to non-numeric Hospital SATURATION results) MODALITY T/C [facility] ARTERIAL 28.0 % [facility] BLOOD GAS Hospital FIO2 ARTERIAL LEFT RADIAL [facility] BLOOD GAS [facility] DRAW SITE MODIFIED POSITIVE [facility]'S TEST Hospital ID Date Data Source [id number] 03/20/2020 06:59:00 AM EDT [facility] o[facility]ital Name Value Range Interpretation Description Data Sup porting Code Source(s) Document(s ) WHITE 16.2 3.5-9.1 Above high normal [facility] BLOOD 10(3)/uL Hospital COUNT SPOKE TO DONA DYE 0918 03/20/20READ BACK AND VERIFIEDRESULTS REPEATED AND VERIFIED RED BLOOD COUNT 3.05 10(6)/uL 4.30-5.60 Below low normal [facility] HEMOGLOBIN 8.8 g/dL 13.3-16.2 Below low normal [facility] HEMATOCRIT 27.5 % 38.8-46.4 Below low normal [facility] MEAN CORPUSCULAR VOLUME 90 fl 79-93 Normal (applies [facility] to non-numeric Hospital results) MEAN CORPUSCULAR 29 pg 27-32 Normal (applies [facility] HEMOGLOBIN to non-numeric Hospital results) MEAN CORPUSCULAR HGB 32 g/dl 32-36 Normal (applies [facility] CONC to non-numeric Hospital results) RED CELL DISTRIBUTION 19.1 % 0.0-14.5 Above high [facility] PLATELET COUNT 155 10(3)/uL 165-415 Below low normal [facility] MEAN PLATELET VOLUME 12.1 fl 9.0-13.0 Normal (applies [facility] to non-numeric Hospital results) ID Date Data Source [id number] 03/20/2020 06:59:00 AM EDT [facility] o[facility]ital Name Value Range Interpretation Description Data Sup porting Code Source(s) Document(s ) TOTAL CELLS 100 [facility] Hospital NEUTROPHILS 82.0 % [facility] BAND 1.0 % [facility] LYMPHOCYTE 6.0 % [facility] VARIANT LYMPHS 0.0 % [facility] MONOCYTE 8.0 % [facility] EOSINOPHIL 0.0 % [facility] BASOPHIL 0.0 % [facility] METAMYELOCYTE 2.0 % [facility] MYELOCYTE % 0.0 % [facility] PROMYELOCYTE 1.0 % [facility] BLAST 0.0 % [facility] PLASMA CELL 0.0 % [facility] NEUTROPHILS 13.45 1.42-6.3 Above high [facility] #MANUAL K/mm3 4 normal Hospital IMMATURE 0.49 0.00-0.4 Above high [facility] GRANULOCYTE K/mm3 5 normal Hospital #MANUAL LYMPH #MANUAL 0.97 0.71-4.5 Normal (applies [facility] s K/mm3 3 to non-numeric Hospital results) MONO #MANUAL 1.30 0.14-0.7 Above high [facility] K/mm3 2 normal Hospital EOS #MANUAL 0.00 0.00-0.5 Normal (applies [facility] K/mm3 4 to non-numeric Hospital results) BASO #MANUAL 0.00 0.00-0.1 [facility] K/mm[facility] 8 to non-numeric Hospital results) NUCLEATED RED 1.0 [facility] ANISOCYTOSIS SLIGHT [facility] MICROCYTOSIS SLIGHT [facility] ID Date Data Source [id number] 03/20/2020 06:59:00 AM EDT [facility] o[facility]ital Name Value Range Interpretation Description Data Sup porting Code Source(s) Document(s ) PROTHROMBIN 10.6 9.4-11.5 Normal (applies [facility] TIME (PATIENT) SECONDS to non-numeric Hospital results) INR 1.02 [facility] INR RANGE IS DIAGNOSIS SPECIFICINR VALUE S <1.5 ARE NON-THERAPEUTICFOR INR >1.5, CONSULT MD ORDERS ID Date Data Source [id number] 03/20/2020 06:59:00 AM EDT [facility] o[facility]ital Name Value Range Interpretation Code Description Data Annabelle rce(s) Supporting Document(s ) GLUCOSE 117 mg/dL 74-100 Above high normal [facility] "Assay results affected by Sulfasalazine therapy. If thepatient is taking this drug, please contact the laboratory". BLOOD UREA NITROGEN 51 mg/dL 7-18 Above high normal [facility] CREATININE 1.30 mg/dL 0.70-1.30 Normal (applies to [facility] non-numeric results) SODIUM LEVEL 149 mmol/L 136-145 Above high normal [facility] RESULTS REPEATED AND VERIFIED POTASSIUM LEVEL 4.0 mmol/L 3.5-5.1 Normal (applies to [facility] non-numeric results) Hospital CHLORIDE LEVEL 113 mmol/L 98-107 Above high normal [facility] CARBON DIOXIDE LEVEL 26 mmol/L 21-32 Normal (applies to [facility] non-numeric results) Hospital ANION GAP 10 mmol/L 2-8 Above high normal [facility] CALCULATED RESULT BUN/CREATININE RATIO 39.2 12.0-20.[address] [facility] normal [facility] EST GLOMERULAR 56.9 mL/min/ > 60 mL/min [facility] FILTRATION RATE [facility] GFR ESTIMATE MDRD Equation (Modification of Diet in RenalDisease). Reference range is >= 60mL/min/1.73m2 If patient is Afri can [place], multiply printed result by1.21NOTE: A calculated eGFR of <60 woods ggests chronic kidneydisease, but only if found consistently over at least 3months . A calculated result of <15 is consistent with renalfailure. CREATININE CLEARANCE CALC 51.00 mL/min > 60 mL/min [facility] Medication dose adjustment may be needed for [...] OSMOLALITY CALCULATED 311 280-301 Above high normal [facility] CALCULATED RESULT ID Date Data Source [id number] 03/20/2020 06:59:00 AM EDT [facility] o[facility]ital Name Value Range Interpretation Description Data Sup porting Code Source(s) Document(s ) CALCIUM 9.2 mg/dL 8.5-10.1 Normal (applies to [facility] non-numeric Hospital results) ID Date Data Source [id number] 03/20/2020 06:59:00 AM EDT [facility] Name Value Range Interpretation Description Data Sup porting Code Source(s) Document(s ) PHOSPHOROUS 3.6 2.5-4.9 Normal (applies [facility] mg/dL to non-numeric Hospital results) ID Date Data Source [id number] 03/20/2020 06:59:00 AM EDT [facility] Name Value Range Interpretation Description Data Sup porting Code Source(s) Document(s ) MAGNESIUM 1.9 mg/dL 1.8-2.4 Normal (applies [facility] to non-numeric Hospital results) ID Date Data Source [id number] 03/20/2020 06:59:00 AM EDT [facility] Name Value Range Interpretation Description Data Sup porting Code Source(s) Document(s ) ALBUMIN 2.6 gm/dL 3.4-5.0 Below low normal [facility] BILIRUBIN,T 0.3 mg/dL 0.2-1.0 Normal (applies to [facility] nonnumeric Hospital results) AST/SGOT 36 U/L 15-37 Normal (applies to [facility] results) "Assay results affected by Sulfasalazine therapy. If thepatient is taking this drug, please contact the laboratory". ALT/SGPT 25 U/L 16-63 Normal (applies to non-numeric [facility] results) "Assay results affected by Sulfasalazine therapy. If thepatient is taking this drug, please contact the laboratory". ID Date Data Source [id number] 03/20/2020 06:59:00 AM EDT [facility] Name Value Range Interpretation Description Data Sup porting Code Source(s) Document(s ) PREALBUMIN 25.9 18.0-35.7 Normal (applies to [facility] mg/dL1 non-numeric Hospital results) ID Date Data Source [id number] 03/20/2020 06:59:00 AM EDT [facility] Name Value Range Interpretation Description Data Sup porting Code Source(s) Document(s ) ALKALINE 102 u/l 46-116 Normal (applies [facility] PHOSPHATASE to non-numeric Hospital results) ID Date Data Source [id number] 03/20/2020 06:15:00 AM EDT [facility] What is the Source CATHETERIZED Name Value Range Interpretation Description Data Sup porting Code Source(s) Document(s ) LEGIONELLA Not Not [facility] ANTIGEN,EIA, Detected Detected Hospital URINE This [...] or serogroups. This test was performed at: [facility] [address] [address] ID Date Data Source [id number] 03/20/2020 06:15:00 AM EDT [facility] H ospital What is the Source [place] PORTIndications for Urine Screen Metabolic Change What is the Source KELLY PORTIndications for Urine Screen Metabolic Change Name Value Range Interpretation Description Data Sup porting Code Source(s) Document(s ) COLOR, URINE YELLOW STRAW [facility] APPEARANCE, CLEAR CLEAR [facility] URINE [facility] GLUCOSE, NEG NEG [facility] URINE (UA) Hospital BILIRUBIN, NEG NEG [facility] KETONE, URINE NEG NEG [facility] UROBILINOGEN, 0.2 EU/dL 0.0-0.5 Normal (applies [facility] s URINE to non-numeric Hospital results) SPECIFIC 1.020 1.001-1. Normal (applies [facility] GRAVITY,URINE 035 to non-numeric Hospital results) OCCULT BLOOD 1+ NEG Abnormal (applies [facility] URINE to non-numeric Hospital results) PH Urine 5.0 U 4.6-8.0 Normal (applies [facility] to non-[facility] Hospital results) PROTEIN, TRACE NEG Abnormal (applies [facility] URINE to non-numeric Hospital results) NITRITE, NEG NEG [facility] URINE Hospital URINE NEG NEG [facility] LEUKOCYTE Hospital ESTERASE ID Date Data Source [id number] 03/20/2020 06:15:00 AM EDT [facility] ospital What is the Source KELLY PORTIndications for Urine Screen Metabolic Change What is the Source [place] PORTIndications for Urine Screen Metabolic Change Name Value Range Interpretation Code Description Data Supporting Source(s) Document(s ) RBC, URINE 10-20 /HPF 0-3 [facility] WBC, URINE NONE /HPF 0-5 [facility] MUCOUS, FEW [facility] URINE Hospital ID Date Data Source [id number] 03/19/2020 09:30:00 PM EDT [facility] ospital VESTA SEGURA/COURTNEY LUNDBERG @085 2READ BACK AND VERIFIEDResult Reference RangeNot Detected No t DetectedNOTE: Please consider re-collection of a new specimen, ifclinically indicate d.NOTE: The COVID-19 assay has been cleared by the U.S. Foodand Drug Administration under the Emergency UseAuthorization (EUA). [facility] is designateda s a high complexity laboratory by the Clinical LaboratoryImprovement Amendment s of 1988(CLIA) and is qualified toperform this test. ASSAY INFORMATION: Real Time RT-PCRPerformed by:[facility], [id number] [place], [place] [id number] Anson Reyes M.D.[employer] Name Value Range Interpretation Code Description Data Annabelle rce(s) Supporting Document(s ) ID Date Data Source [id number] 03/19/2020 06:40:00 PM EDT [facility] ospital [facility] Clinical Laboratory [address] [id number] Director: Chata Patel M.D.MRSANO MRSA ISOLATED Name Value Range Interpretation Code Description Data Annabelle rce(s) Supporting Document(s ) ID Date Data Source [id number] 03/19/2020 06:40:00 PM EDT [facility] ospital [facility] Clinical Laboratory [address] [facility], [place], [place] [address]Drelosaxqd Director: Chata Patel M.D.CALLED JAE BUENO 1440 03/21/20VRE (E faecium)(Positive for Vanc omycin-Resistant Enterococcus faecium)R/O VREVRE ISOLATEDRBVREAD BACK AND VERIFIED Name Value Range Interpretation Code Description Data [facility] rce(s) Supporting Document(s ) ID Date Data Source [id number] 03/19/2020 04:34:20 PM EDT [facility] IV patent without any erythema or swelli ng.IV inserted on 03/17/2020-kept in on discharge to [facility] for IV abxFoley draining without any issues or concerns.Kelly present on discharge to [facility].Report given to EMS for transport. Name Value Range Interpretation Code Description Data [facility] rce(s) Supporting Document(s ) ID Date Data Source [id number] 03/19/2020 04:16:37 PM EDT [facility] Patient resting in bed without any distr ess noted.Trach collar 40%Patient d/c instructions, AVS, and MAR printed to go with patient to [facility].Awaiting transport. Name Value Range Interpretation Code Description Data [facility] rce(s) Supporting Document(s ) ID Date Data Source [id number] 03/19/2020 04:08:41 PM EDT [facility] 1430-patient sitting in semi-harry's po sition.Asking to be suctioned. Suctioned via trach with minimal amador sputum notedPatie nt repositioned.Patient going to be discharged back to [facility] at [id number] 45-patient suctioned with small amount of amador sputum via trach.PO 97% Name Value Range Interpretation Code Description Data [facility] rce(s) Supporting Document(s ) ID Date Data Source [id number] 03/19/2020 03:53:20 PM EDT [facility] Removed cuffed 6 non-fenestrated and rep laced with 4 cuffed fenestrated shileytrach without complication in order to help pa tient phonate better. Previouslyhad cuffless 4 that was capped. No complications.Paul Flores MD Name Value Range Interpretation Code Description Data Annabelle rce(s) Supporting Document(s ) ID Date Data Source [id number] 03/19/2020 03:32:13 PM EDT [facility] ID Progress Note03/19/2020Subjective:Some what restless.Afebrile.Current Facility-Administered MedicationsMedicat ion Dose Route Frequency hydrocortisone Sod Succ (PF) (SOLU-CORTEF) injection 50 mg 50 mg IntraVENousBID vits A and D-white pet-lanolin (A&D) ointment Topical PRN doxycycline (VIBRAMYCIN) 100 mg in 0.9% sodium chloride (MBP/ADV) 100 mL QAR161 mg IntraVENous Q12H amLODIPine (NORVASC) tablet 10 [...] Supporting Document(s ) ID Date Data Source [id number] 03/19/2020 03:30:00 PM EDT [facility] Problem: Mobility Impaired (Adult and Pe diatric)Goal: [...] vention(s) 1: Repositioned;ElevationActivity Tolerance:GoodPlease refer to the [facility] eet for vital signs taken during this treatment.After treatment:[] Patient left in no apparent distress sitting up in chair[x] Patient left in no apparent distress in bed[x] Call pleitez left within reach[x] Nursing notified[] Caregi valerie present[] Bed alarm activatedCOMMUNICATION/COLLABORATION:The patient's plan of care was discussed with: Registered Guerrero Duarte Time Calculati on: 24 mins Name Value Range Interpretation Code Description Data Annabelle rce(s) Supporting Document(s ) ID Date Data Source [id number] 03/19/2020 02:09:14 PM EDT [facility] Care Management InterventionsPCP Verifie d by CM: YesPalliative Care Criteria Met (RRAT>21 & CHF Dx)?: NoMode of Transport at Discharge: ALSTransition of Care Consult (CM Consult): Discharge Planning, SNFMyC rolle Signup: NoDischarge Durable Medical Equipment: NoPhysical Therapy Consult: Y esOccupational Therapy Consult: NoSpeech Therapy Consult: NoCurrent Support Netwo rk: Lives with SpouseConfirm Follow Up Transport: FamilyThe Patient and/or Dionna ent Hassock Maker was Provided with a Choice of Providerand Agrees with the Discharge Plan?: YesName of the Patient Hassock Maker Who was Provided with a Choice of Provid erand Agrees with the Discharge Plan: Puma of Choice List was Provide d with Basic Dialogue that Supports thePatient's Individualized Plan of Care /Goals, Treatment Preferences and Sharesthe Quality Data Associated with the Provide rs?: YesVeteran Resource Information Provided?: RefusedDischarge LocationDisc harge Placement: Rehab hospital/unit acutePt DC'd for 430 transport via [facility] to [facility]. W ursula Flory aware and agrees with DCplan. RN aware as well. Name Value Range Interpretation Code Description Data Annabelle rce(s) Supporting Document(s ) ID Date Data Source [id number] 03/19/2020 01:57:54 PM EDT [facility] Attending [place] @ [place] [address] Discharge SummaryPatient: Carlyle Pate Sex: male DOA: 03/13/2020Age: 75 y.o. 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 failure with hypoxia (HCC);Kelly catheter [...] caus e; At risk for sepsis;Septic shock ([facility]); Acute on chronic respiratory failure wit h hypoxia ([facility]);Kelly catheter problem, initial encounter ([facility]); Gross hematuria ; Sepsis, due tounspecified organism, unspecified whether acute organ dysfunct ion present ([facility]);BruiseCONTINUE these medications which have NOT CHANGED [...] two(2) times a day.FLUTICASONE PROPIONATE IN 1 [place] by Nasal route two (2) times a day.STOP taking these medications acetaminophen (TYLENOL ) 325 mg tablet Comments:Reason for Stopping:Activity: Activity as tolerated Diet: Osmolite 1.5 @60 ml/hr; 200 ml H20 every 6 hours; liquid protein 2x dailyCo de Status: FullFollow-up: at rehabTime spent on discharge summary- more than 30 minut es Name Value Range Interpretation Code Description Data [facility] rce(s) Supporting Document(s ) ID Date Data Source [id number] 03/19/2020 01:35:52 PM EDT [facility] JAZMYNE otto MD and awaiting call back. MD osiel bella MD [facility] viaBLS at 4:30 pm per rep Ernst. [facility] Maryse vines attem pting to confirm bed [facility] for today if discharged. Awaiting call back from magalis mosley. Pt has NEGATIVECovid status as of 03/13/2020.CM will continue to follow.(12 :49 pm) Pt has confirmed bed at [facility] for today per Maryse vines. Liaisonaware of ti me set above for transport. made aware of above by RNCM. Awaitingdc order from . Name Value Range Interpretation Code Description Data Annabelle rce(s) Supporting Document(s ) ID Date Data Source [id number] 03/19/2020 01:24:28 PM EDT [facility] rec'd patient from SICU to 410 APatie nt in [id number]-[id number]-yjoshl's position. Trach collar intactNo SOB.Patient awake,alert, oriented Name Value Range Interpretation Code Description Data Annabelle rce(s) Supporting Document(s ) ID Date Data Source [id number] 03/19/2020 01:23:03 PM EDT [facility] TRANSFER - IN REPORT:Verbal report recei dorita [...] Supporting Document(s ) ID Date Data Source [id number] 03/19/2020 12:18:10 PM EDT [facility] CM spoke with Dr. Ayaka hernandez above ian cartagena DC. Patient to return [facility] today ifmedically cleared. Per Dr. Sandra cartagena can go to medical floor, DC planning.Dr. Freed will see patient and if stable c all Dr. Prajapati. 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 Wean hydrocortison e 50 mg [id number] edema asymmetric. Dopplers negative-Afib rate controlled. Patient o n DVT treatment dosage of lovenox prior totransfer, will continue-Tolerating tra ch collar during the day. Attempting to speak. Changed trach atbedside to a cuff ed 4 fenestrated shiley. Will add passy juliet valve.-DVT and SUP prophy-OK to transfer to floor. [facility], interactive, trying to speak.Past Medical History:Diagnosis [...] Other, P hys, MDFLUTICASONE PROPIONATE IN 1 [place] by Nasal route two (2) times a [...] in 0.9% sodium chloride (MBP/ADV) 100 mL QVS242 mg IntraVENous Q12H hydrocortisone Sod Succ (PF) [...] Supporting Document(s ) ID Date Data Source [id number] 03/19/2020 11:06:56 AM EDT [facility] Problem: Dysphagia (Adult)Goal: *Speech Goal: (INSERT TEXT)Description: Speech therapy goals:Initiated . NPO. Alternate means of nutrition and hydration recommended at this time2. Pt will karlos ate five (5) minute intervals of PMV placement for voicing withSLP, RT, residential subcontractor trained in PMV use present.Note:SPEECH LANGUAGE PATHOLOGY [...] intervals of PMVplacemen t for voicing with QUALITY TECHNICIAN, RT, residential subcontractor trained in PMV use present.ASSESSMENT :Based on [...] artery disease (HCC) CAD (coronary artery disease) Director Of Transportation jamie cystitis Dysphagia Head and neck cancer [...] to admission: UnknownPrior Level of Function/Home Situation:Home [facility] Environment: Rehabilitation facilityOne/Two Story Residence: One sto ryLiving Alone: NoSupport Systems: Spouse/Significant Other/PartnerPatient Expects [...] Pr esented: Honey thick liquid;Ice chipsHow Presented: Spoon;QUALITY TECHNICIAN-fed/presentedHow Mu ch: 2(spoonfuls)Bolus Acceptance: No impairmentBolus Formation/Control: [...] with: Registered Nurse and Patient andot her QUALITY TECHNICIAN.[] Posted safety precautions in patient's room.[x] Patient/family have participated as able in goal setting and planof care.[x] Patient/family agree to work toward stated goals and plan ofcare.[] Patient understands intent and goals of therapy, but is neutralabout his/her par ticipation.[] Patient is unable to participate in goal setting and plan of care.Thank you for this referral.Flavio KrunalstTime Calculation: 20 mins Name Value Range Interpretation Code Description Data Annabelle rce(s) Supporting Document(s ) ID Date Data Source [id number] 03/19/2020 07:43:23 AM EDT [facility] Bedside shift change report given to Dusty pritchard RN (oncoming nurse) by Sherri (offgoing nurse). Report included the fo llowing information SBAR,Kardex, ED Summary, Procedure Summary, Intake/Output, MAR, R ecent Results andCardiac Rhythm NSR. Name Value Range Interpretation Code Description Data Annabelle rce(s) Supporting Document(s ) ID Date Data Source [id number] 03/19/2020 07:42:57 AM EDT [facility] Name Value Range Interpretation Description Data Sup porting Code Source(s) Document(s ) Leukocytes 13.8 4.8-10.6 Above high normal [facility] - [#/volume] in K/uL Good Blood by [facility] count [facility] Erythrocytes 3.55 4.70-6.0 Below low normal [facility] - [#/volume] in M/uL 0 Good Blood by [facility] Hemoglobin 10.1 14.0-18. Below low normal [facility] - [Mass/volume] in g/dL 0 Good Blood [facility] Hematocrit 33.8 % 42.0-52. Below low normal [facility] - [Volume 0 Good Fraction] of [facility] Blood by Hospital Automated count Erythrocyte mean 95.2 FL 81.0-94. Above high normal [facility] - corpuscular 0 Good volume [Entitic [facility] volume] by Hospital Automated count Erythrocyte mean 28.5 PG 27.0-35. [facility] - corpuscular 0 Good hemoglobin [facility] [Entitic mass] Hospital by Automated count Erythrocyte mean 29.9 30.7-37. Below low normal [facility] - corpuscular g/dL 3 Good hemoglobin [facility] concentration [facility] [Mass/volume] by Automated count Erythrocyte 18.9 % 11.5-14. Above high normal [facility] - distribution 0 Good width [Ratio] by [facility] Automated count Hospital Platelets 125 K/uL 130-400 Below low normal [facility] - [#/volume] in Good Blood by [facility] Automated count Hospital Platelet mean 13.4 FL 9.2-11.8 Above high normal [facility] - volume [Entitic Good volume] in Blood [facility] by Automated Hospital count Nucleated 0.0 PER 0 [facility] - erythrocytes/100 100 WBC Good leukocytes [facility] [Ratio] in Blood Hospital Nucleated 0.00 0.0-0.01 [facility] - erythrocytes K/uL Good [#/volume] in [facility] Blood [facility] Segmented 81 % 48.0-72. Above high normal [facility] - neutrophils/100 0 Good leukocytes in [facility] Band form 1 % 0 Above high normal [facility] - neutrophils/100 Good leukocytes in [facility] Blood by Manual Hospital count Lymphocytes/100 10 % 18.0-40. Below low normal [facility] - leukocytes in 0 [facility] Blood [facility] Monocytes/100 5 % 2.0-12.0 [facility] - leukocytes in [facility] Blood [facility] Eosinophils/100 0 % 0.0-7.0 [facility] - leukocytes in [facility] Blood [facility] Basophils/100 0 % 0.0-3.0 [facility] - leukocytes in [facility] Blood [facility] Metamyelocytes/1 1 % 0 Above high normal [facility] - 00 leukocytes in Good Blood by Manual [facility] count Hospital Myelocytes/100 2 % 0 Above high normal [facility] - leukocytes in Good Blood by Manual [facility] count Hospital Promyelocytes/10 0 % 0 [facility] - 0 leukocytes in Good Blood by [facility] Blasts/100 0 % 0 [facility] - leukocytes in Good Blood by [facility] Other cells/100 0 [facility] - leukocytes in Good Blood by [facility] Immature 0 % [facility] - granulocytes/100 Good leukocytes in [facility] Blood by Hospital Automated count Segmented 11.7 2.3-7.6 Above high normal [facility] - neutrophils K/UL Good [#/volume] in [facility] Lymphocytes 1.4 K/UL 0.9-4.2 [facility] - [#/volume] in [facility] Monocytes 0.7 K/UL 0.1-1.7 [facility] - [#/volume] in [facility] Eosinophils 0.0 K/UL 0.0-1.0 [facility] - [#/volume] in [facility] Basophils 0.0 K/UL [facility] - [#/volume] in [facility] Immature 0.0 K/UL [facility] - granulocytes Good [#/volume] in [facility] Blood by [facility] Automated count 3+ANISOCYTOSIS1+POIKILOCYTOSIS Platelet adequacy [Presence] in Blood by [facility] Light microscopy Differential cell count method - Blood [facility] ID Date Data Source [id number] 03/19/2020 05:08:18 AM EDT [facility] Name Value Range Interpretation Description Data Sup porting Code Source(s) Document(s ) Sodium 145 136-145 [facility] - Good [Moles/volume mmol/L [facility] ] in Serum or Hospital Plasma Potassium 4.7 3.5-5.1 [facility] - Good [Moles/volume mmol/L [facility] ] in Serum or Hospital Plasma RESULTS CONFIRMED Chloride [Moles/volume] 119 mmol/L 98-107 Above high [facility] - Good in Serum or Plasma [facility] Carbon dioxide, total 22 mmol/L 21-32 [facility] - Good [Moles/volume] in Serum [facility] amador or Plasma Hospital Anion gap in Serum or 9 mmol/L 10-20 Below low [facility] - [facility] Plasma normal [facility] Glucose [Mass/volume] in 139 mg/dL 74-106 Above high [facility] - Good Serum or Plasma normal [facility] Urea nitrogen 52 mg/dL 7-18 Above high [facility] - Good [Mass/volume] in Serum or normal [facility] Hospital Creatinine [Mass/volume] 1.26 mg/dL 0.70-1.30 [facility] - Good in Serum or Plasma [facility] Glomerular filtration >60 [facility] - Good rate/1.73 [...] 8.5-10.1 [facility] - Good Serum or Plasma [facility] Bilirubin.total 0.3 mg/dL 0.2-1.0 [facility] - Good [Mass/volume] in Serum or [facility] Alanine aminotransferase 24 U/L 13-61 [facility] - Good [Enzymatic [facility] activity/volume] in Serum Hosp ital or Plasma Aspartate 49 U/L 15-37 Above high [facility] - Good aminotransferase normal [facility] [Enzymatic Hospital activity/volume] in Serum or Plasma by With P-5'-P Alkaline phosphatase 121 U/L 45-117 Above high [facility] - Good [Enzymatic normal [facility] activity/volume] in Serum Hosp ital or Plasma Protein [Mass/volume] in 7.8 g/dL 6.4-8.2 [facility] - Good Serum or Plasma [facility] Albumin [Mass/volume] in 2.4 g/dL 3.5-4.7 Below low [facility] - Good Serum or Plasma by normal [facility] Bromocresol purple (BCP) Hospi manju dye binding method Globulin [Mass/volume] in 5.4 g/dL 1.7-4.7 Above high BSC HS - Good Serum by calculation [facility] Albumin/Globulin [Mass 0.4 0.7-2.8 Below low [facility] - Good Ratio] in Serum or Plasma normal [facility] ID Date Data Source [id number] 03/19/2020 12:00:00 AM EDT [facility] Name Value Range Interpretation Code Description Data [facility] rce(s) Supporting Document(s ) 2019-nCoV [facility] RNA XXX BENITO+probe- Imp This lab was ordered by ARINA LEIVA [facility] and reported by [employer]. ID Date Data Source [id number] 03/18/2020 07:37:05 PM EDT [facility] Bedside and Verbal shift change report g iven to wong Carlin (oncomingnurse) by DIANE KIDD RN (offgoing nurse). R eport included the followinginformation SBAR, Kardex, Intake/Output, MAR and Recent Re sults. Name Value Range Interpretation Code Description Data [facility] rce(s) Supporting Document(s ) ID Date Data Source [id number] 03/18/2020 07:17:09 PM EDT [facility] Progress NotePatient: Carlyle Pate Sex: male DOA: [...] intake/output data recorded.Last three s hifts: 03/17 0701 - 03/18 1900In: 3301 [I.V.:841]Out: 1924 [Urine:1924]Lab/Data [...] PCO2, PCO2I, PO2, PO2I, HC O3, HCO3I, FIO2,EQZ1TQRHEA: No results found for: APTT, PTP, INR, [...] mcg, 200 mcg, Per G Tube, ACB, Paul Flores MD, 200 mcg at 03/18/20 0546 sodium [...] Supporting Document(s ) ID Date Data Source [id number] 03/18/2020 04:36:35 PM EDT [facility] ID Progress Note03/18/2020Subjective:C/O Right arm tenderness according [...] Supporting Document(s ) ID Date Data Source [id number] 03/18/2020 04:06:45 PM EDT [facility]. Patient is max A forsit to stand from reclining chair. Patient took 2 steps with max assist fromreclining chair to bed. Patient is max assist for bed mo bility. Patient issupine in bed with Nurse at bedside. Time: 09 minutesJomitch Monzon, PT,DPT Name Value Range Interpretation Code Description Data Annablele rce(s) Supporting Document(s ) ID Date Data Source [id number] 03/18/2020 04:00:25 PM EDT [facility] OT treatment:Pt was seated in recliner w [...] Supporting Document(s ) ID Date Data Source [id number] 03/18/2020 03:59:01 PM EDT [facility] Consult NotePatient: Carlyle Pate Sex: male DOA: 03/13/2020Date of : 1945 Age: 75 y.o. LOS: LOS: 5 daysHPI:Edward Nyahay is a 75 y.o. male who has [...] Electronically Signed: MD Renan 03/16/2020 9:39 PMCt Hea d Wo ContResult Date: 03/13/2020CT HEAD WO CONT Clinical data: AMS Priors: None. Te chnique: Multiple axialimages were obtained from the skullbase to the vertex without administration ofintravenous contrast. Sagittal and coronal reconstruction was performed.Utilizing car ferry master algorithm the examination was performed to optimiz [...] the solid abdominal viscera and softtissues. Using car ferry master's algori thms the examination was performed tooptimize [...] the time of this examination; [facility] for resfailure Pt has trac h [...] review.Fluoroscopy time 0.[address] Morales.Duplex Upper Ext Venous RightResult Date: 03/13/2020DUPLEX UPPER EXT VENOUS RIGHT Clinical indication: evaluate of RUE DVT . Edema.Priors: None . FINDINGS: The right subclavian vein up to the brachial vein iscompressible and maegan ws normal phasic flow without an intraluminal thrombus. Inaddition, the right record label internship al jugular vein, cephalic vein and [...] Supporting Document(s ) ID Date Data Source [id number] 03/18/2020 03:14:20 PM EDT [facility] physical Therapy TREATMENTPatient: Chris Pate (75 y.o. male)Date: 03/18/2020Diagnosis: Septic shock ([facility]) [ A41.9, R65.21] <principal problem not [...] assistance;Assist x2 Transfers:Sit to Stand: Moderate assistance;Assist t0Gdpyn to Sit: Modera te assistance;Assist x2Bed to Chair: Moderate assistance;Assist x2(chair brought behin d pt)Balance:Sitting: ImpairedSitting - Static: Good (unsupported)Sitting [...] plan of care was discussed with: Registered Sofia cheng, PT,DPT Time Calculation: 28 mins Name Value Range Interpretation Code Description Data Annabelle rce(s) Supporting Document(s ) ID Date Data Source [id number] 03/18/2020 02:42:39 PM EDT [facility] NUTRITIONFollow Up NoteRecommendations:C ontinue Osmolite 1.5@60mL/hr with [...] Supporting Document(s ) ID Date Data Source [id number] 03/18/2020 02:42:34 PM EDT [facility] Problem: Altered nutritionGoal: *Optimiz e nutritional statusDescription:Pt [...] Supporting Document(s ) ID Date Data Source [id number] 03/18/2020 02:39:28 PM EDT [facility] Problem: Self Care Deficits Care Plan (A dult)Goal: *Therapy Goal (Edit Goal, Insert Text)Description: Occupational Therapy Ashley oalsInitiated ) Patient will perform upper body [...] GASTROSTOMY TUBE 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 SCREEN completed and emailed to Mikayla. JAZMYNE requested YESICA prior to andrea stinson. Destination TBA.CM will continue to follow.(1:07 pm) Pt has accepting bed at [facility], [facility], [facility] has accepting bedoffers post dc per liaisons. Per The jasmyn Dobbs, pt declined post dc.[facility] liaison to review and advis e.(1:46 PM): Pt has accepted bed at [place] per Yane vines once medicallystable. (2:09 PM): Pt has accepted bed at [facility] per Racheal vines post dc. 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 Status post admission to [facility] on 01/31-> 03/12 --> [facility] --> [facility] 03/13secondary to lethargy, respiratory d istress, fever Hypotension-COVID (-) 03/13AnxietyPLAN:Cultures at [facility] showing GNR 4/4 bottles; Klebsiella sepsis, [...] pt was o n speaking valve at [facility] for weeks without problem andvocalizing. Trach was change there after [place]DVT and SUP prophy-U pdated Flory [phone] condition- asked to speak with ID Further [...] tablet 50 mg 50 mg Oral Q6H SC N cefTRIAXone (ROCEPHIN) 2 g in 0.9% [...] Name Value Range Interpretation Code Description Data [facility] rce(s) Supporting Document(s ) ID Date Data Source [id number] 03/18/2020 08:21:23 AM EDT [facility] History:Urethral stricture.FINDINGS:5 di gitally acquired fluoroscopic image obtained intraoperatively revealcontrast filling the urinary bladder. A Kelly catheter is noted in situ. Theseimages are on file f or clinical review.Fluoroscopy time 0.[address] Morales. Signing date/time: 03/18/2020 8:21 AMSigned by: TRUE TERAN Name Value Range Interpretation Code Description Data [facility] rce(s) Supporting Document(s ) ID Date Data Source [id number] 03/18/2020 07:08:29 AM EDT [facility] Bedside and Verbal shift change report g iven to Liss KIDD rn (oncomingnurse) by Maria A Johansen RN (offgoing nurse). Repo rt included the followinginformation SBAR, Kardex, Intake/Output, MAR, Recent Resul ts, Med Rec Status andCardiac Rhythm sr. Name Value Range Interpretation Code Description Data [facility] rce(s) Supporting Document(s ) ID Date Data Source [id number] 03/18/2020 06:52:53 AM EDT [facility] Name Value Range Interpretation Description Data Sup porting Code Source(s) Document(s ) Leukocytes 19.0 4.8-10.6 Above high normal [facility] - [#/volume] in K/uL Good Blood by [facility] Automated count Hospital Erythrocytes 3.29 4.70-6.0 Below low normal [facility] - [#/volume] in M/uL 0 Good Blood by [facility] Automated count Hospital Hemoglobin 9.6 g/dL 14.0-18. Below low normal [facility] - [Mass/volume] in 0 Good Blood [facility] Hematocrit 30.7 % 42.0-52. Below low normal [facility] - [Volume 0 Good Fraction] of [facility] Blood by Hospital Automated count Erythrocyte mean 93.3 FL 81.0-94. [facility] - corpuscular 0 Good volume [Entitic [facility] volume] by Hospital Automated count Erythrocyte mean 29.2 PG 27.0-35. [facility] - corpuscular 0 Good hemoglobin [facility] [Entitic mass] Hospital by Automated count Erythrocyte mean 31.3 30.7-37. [facility] - corpuscular g/dL [address] [facility] Hospital [Mass/volume] by Automated count Erythrocyte 18.7 % 11.5-14. Above high normal [facility] - distribution 0 Good width [Ratio] by [facility] Automated count Hospital Platelets 127 K/uL 130-400 Below low normal [facility] - [#/volume] in Good Blood by [facility] Automated count Hospital Platelet mean 12.9 FL 9.2-11.8 Above high normal [facility] - volume [Entitic Good volume] in Blood [facility] by Automated Hospital count Nucleated 0.1 PER 0 Above high normal [facility] - erythrocytes/100 100 WBC Good leukocytes [facility] [Ratio] in Blood Hospital Nucleated 0.02 0.0-0.01 Above high normal [facility] - erythrocytes K/uL Good [#/volume] in [facility] Blood [facility] Segmented 78 % 48.0-72. Above high normal [facility] - neutrophils/100 0 Good leukocytes in [facility] Band form 4 % 0 Above high normal [facility] - neutrophils/100 Good leukocytes in [facility] Blood by Manual Hospital count Lymphocytes/100 8 % 18.0-40. Below low normal [facility] - leukocytes in 0 [facility] Monocytes/100 7 % 2.0-12.0 [facility] - leukocytes in [facility] Eosinophils/100 2 % 0.0-7.0 [facility] - leukocytes in [facility] Basophils/100 0 % 0.0-3.0 [facility] - leukocytes in [facility] Metamyelocytes/1 0 % 0 [facility] - 00 leukocytes in Good Blood by [facility] Myelocytes/100 1 % 0 Above high normal [facility] - leukocytes in Good Blood by [facility] Promyelocytes/10 0 % 0 [facility] - 0 leukocytes in [facility] Blood by [facility] Blasts/100 0 % 0 [facility] - leukocytes in [facility] Blood by [facility] Other cells/100 0 [facility] - leukocytes in [facility] Blood by [facility] Immature 0 % [facility] - granulocytes/100 Good leukocytes in [facility] Blood by Hospital Automated count Segmented 15.8 2.3-7.6 Above high normal [facility] - neutrophils K/UL Good [#/volume] in [facility] Lymphocytes 1.5 K/UL 0.9-4.2 [facility] - [#/volume] in [facility] Monocytes 1.3 K/UL 0.1-1.7 [facility] - [#/volume] in [facility] Eosinophils 0.4 K/UL 0.0-1.0 [facility] - [#/volume] in [facility] Basophils 0.0 K/UL [facility] - [#/volume] in [facility] Immature 0.0 K/UL [facility] - granulocytes Good [#/volume] in [facility] Blood by Hospital Automated count 1+HYPOCHROMIA2+ANISOCYTOSIS Platelet adequacy [Presence] in Blood by [facility] Light microscopy Differential cell count method - Blood [facility] ID Date Data Source [id number] 03/18/2020 04:21:35 AM [facility]T [facility] Name Value Range Interpretation Description Data Sup porting Code Source(s) Document(s ) Sodium 147 136-145 Above high [facility] - [Moles/volume] in mmol/L normal Good Serum or Plasma [facility] Potassium 3.6 3.5-5.1 [facility] - [Moles/volume] in mmol/L Good Serum or Plasma [facility] Chloride 119 98-107 Above high [facility] - [Moles/volume] in mmol/L normal Good Serum or Plasma [facility] Carbon dioxide, 21 21-32 [facility] - total mmol/L Good [Moles/volume] in [facility] Serum or Plasma Hospital Anion gap in Serum 10 10-20 [facility] - or Plasma mmol/L [facility] Glucose 118 74-106 Above high [facility] - [Mass/volume] in mg/dL normal Good Serum or Plasma [facility] Urea nitrogen 48 7-18 Above high [facility] - [Mass/volume] in mg/dL normal Good Serum or Plasma [facility] Creatinine 1.31 0.70-1. Above high [facility] - [Mass/volume] in mg/dL 30 normal Good Serum or Plasma [facility] Glomerular >60 [facility] - filtration Good rate/1.73 sq M [facility] predicted among Hospital blacks [Volume Rate/Area] in Serum or Plasma by Creatinine-based formula (MDRD) Glomerular 56 >60 Below low normal [facility] - filtration ml/min/ Good rate/1.73 sq M 1.73m2 [facility] predicted among Hospital non-blacks [Volume Rate/Area] in Serum or Plasma by Creatinine-based formula (MDRD) Calcium 8.4 8.5-10. Below low normal [facility] - [Mass/volume] in mg/dL 1 Good Serum or Plasma [facility] Bilirubin.total 0.4 0.2-1.0 [facility] - [Mass/volume] in mg/dL Good Serum or Plasma [facility] Alanine 26 U/L 13-61 [facility] - aminotransferase Good [Enzymatic [facility] activity/volume] in Hospital Serum or Plasma Aspartate 54 U/L 15-37 Above high [facility] - aminotransferase normal Good [Enzymatic [facility] activity/volume] in Hospital Serum or Plasma by With P-5'-P Alkaline 121 U/L 45-117 Above high [facility] - phosphatase normal Good [Enzymatic [facility] activity/volume] in Hospital Serum or Plasma Protein 7.2 6.4-8.2 [facility] - [Mass/volume] in g/dL Good Serum or Plasma [facility] Albumin 2.3 3.5-4.7 Below low normal [facility] - [Mass/volume] in g/dL Good Serum or Plasma by [facility] ([facility]) dye binding method Globulin 4.9 1.7-4.7 Above high [facility] - [Mass/volume] in g/dL normal Good Serum by [facility] Albumin/Globulin 0.5 0.7-2.8 Below low normal [facility] - [Mass Ratio] in Good Serum or Plasma [facility] ID Date Data Source [id number] 03/17/2020 07:45:56 PM EDT [facility] Bedside and Verbal shift change report ashley blanco to Bella Johansen RN (oncoming nurse)by Mirtha Balderas RN (offgoing re se). Report included the following information SBAR, Kardex, EDSummary, OR Summary, Procedure Summary, Intake/Output, MAR, Accordion, RecentResults, Med Rec S tatus, Cardiac Rhythm NSR and Alarm Parameters . 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 plan1. We will follow. Name Value Range Interpretation Code Description Data [facility](s) Supporting Document(s ) ID Date Data Source [id number] 03/17/2020 03:39:55 PM EDT [facility] - [facility]AY[facility] Garcia [id number]: JAYDONCHANDA VELOZNAAMRN: [id number]: [id number]#: [id number] DATE: 03/13/2020 OPERATIVE REPORTPROCEDURE DATE: 03/16/2020SURGEON: Christopher M Morales, MDASSISTANT: None.PREOPERATIVE DIAGNOSIS: Urethral false passage.POSTOPERATIVE DAWN GNOSIS: Urethral false passage.PROCEDURES PERFORMED:1. Cystoscopy with dilation o f urethral stricture.2. Placement of [place]-tip Kelly.3. Cystogram.IMPLANTS : None.ANESTHESIA: General.ESTIMATED BLOOD LOSS: Minimal.SPECIMENS REMOVED: Urine culture.INDICATIONS: The patient is a 75-year-old gentleman [facility]. He had been transferred in several days ago [facility] with a Kelly catheter in place. This [facility] a catheter were [...] use of contrast. Using the 6-12 andthen 84-03-Uivqco Caden, the tight area was dilated. We exchanged for a SuperStiff wireand then passed a 16-Cymro [place]-tip Kelly into the bladder.A urine culture w as sent.A cystogram was done to confirm proper placement of the catheter.OPERATI VE PROCEDURE: The patient was brought to the operating room urgently. Hewas placed s upine on the table. Anesthesia was administered and he was placedin the low lithotomy position and prepped and draped for cystoscopy. A timeoutwas called. H jesse had already been on antibiotics but we gave him an extra gram ofceftriaxone. Timeou t was called.The 19 Cymro cystoscope was passed under direct vision. With [...] was in the bladder. Next the 6-12 Cymro Nottinghamfollowed by the 12 -18 Cymro [place] was passed after we had exchanged for aSuper Stiff wire. Follow ing this is able to pass a 16 Cymro [place] tipcatheter over the wire [facility]. This was confirmed by return of [...] present fo r the entire procedure. VICKIE HEON, MDDD: 03/16/2020 2 1:50:22/CD /[id number] #: [id number] / [id number] Name Value Range Interpretation Code Description Data Annabelle rce(s) Supporting Document(s ) ID Date Data Source [id number] 03/17/2020 03:25:42 PM EDT [facility] Progress NotePatient: Carlyle Pate Sex: male DOA: [...] edematousIntake and Output:Current Shift: 03/17 701 - 03/010In: -Out: 300 [Urine:300]Last three shifts: 03/15 1901 [...] PCO2, PCO2I, PO2, PO2I, HCO3, H CO3I, FIO2,OKZ1FDMWBS: No results found for: APTT, PTP, INR, [...] in AM2)Acute respiratory failure:resolvedCo nt vent by trachJuanjo managing ventCont nebs3)Metabolc encephalopathy:resolvedDu e to #1 and #24)Anxiety:Restarted on pre-hospitalization xanaxAtivan IV x 15) Hypokalemia:replacedFull codeDVT ppx: Lovenox Name Value Range Interpretation Code Description Data Annabelle rce(s) Supporting Document(s ) ID Date Data Source [id number] 03/17/2020 12:53:15 PM EDT [facility] - [facility] ID Progress Note03/17/2020Subjective:Curr ently afebrile.No other changes.Objective:Vitals:Visit [...] Sagittal and coronal reconstruction was performed .Utilizing car ferry master algorithm the examination was performed to optimizeima [...] time o f this examination; BIB[facility] for resfailure Pt has trach collar [...] without an intraluminal thrombus. 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 Status post admission to [facility] on 01/31-> 03/12 --> H --> GSH 03/13secondary to lethargy, respiratory d istress, fever Hypotension-COVID (-) 03/13PLAN:Cultures at [facility] showing GNR 4/4 bottles; Klebsiella sepsis, [...] 97%- PRN CPAP/PS. -DVT and SUP prophy-Updated [phone] Further recommendations w ill be based on [...] intake/output data record ed.Last 3 shifts: 03/15 1901 - 03/17 0700In: 3417 [I.V.:2367]Out: 1300 [Urine:1300]In [...] (SOLU-CORTEF) injection 25 mg 25 mg Int [id number] potassium chloride (KLOR-CON) packet for solution 40 [...] Supporting Document(s ) ID Date Data Source [id number] 03/17/2020 11:19:31 AM EDT [facility] Patient agitated, restless. Trying to t alk. BP elevated. Hospitalist called,Dr Childs. Hydralazine ordered. To re start Norvasc. Name Value Range Interpretation Code Description Data Annabelle rce(s) Supporting Document(s ) ID Date Data Source [id number] 03/17/2020 07:19:06 AM EDT [facility] Bedside and Verbal shift change report g iven to Mirtha Balderas RN(oncoming nurse) by DEEPTI MUNGUIA RN (offgoing nurs e). Report included thefollowing information SBAR, Kardex, OR Summary, Procedure Summ tg,Intake/Output, MAR, Recent Results and Cardiac Rhythm sinus rhythm/A fib. Name Value Range Interpretation Code Description Data Annabelle rce(s) Supporting Document(s ) ID Date Data Source [id number] 03/17/2020 07:04:44 AM EDT [facility] Pt back to 468 from OR post cyctoscopy p t awake alert connected back to monitorvitals stable, coucil kelly #[address] with sligth hematuria pt afebrile Name Value Range Interpretation Code Description Data Annabelle rce(s) Supporting Document(s ) ID Date Data Source [id number] 03/17/2020 08:25:12 AM EDT [facility] - Good [facility] Name Value Range Interpretation Description Data Sup porting Code Source(s) Document(s ) Leukocytes 35.4 4.8-10.6 Above upper panic [facility] - Goo d [#/volume] in K/uL limits [facility] Blood by Hospital Automated count CALLED TO AND READ BACK BYRN SILKE BANKS S [id number] MEGAN ISAAC Erythrocytes [#/volume] 3.24 M/uL 4.70-6.00 Below low normal [facility] - Good in Blood by Automated [facility] count Hemoglobin 9.2 g/dL 14.0-18.0 Below low normal [facility] - Good [Mass/volume] in Blood [facility] Hematocrit [Volume 29.8 % 42.0-52.0 Below low normal [facility] - Good Fraction] of Blood by [facility] Automated count Erythrocyte mean 92.0 FL 81.0-94.0 [facility] - Good corpuscular volume [facility] ospital [Entitic volume] by Automated count Erythrocyte mean 28.4 PG 27.0-35.0 [facility] - Good corpuscular hemoglobin [facility] [Entitic mass] by Automated count Erythrocyte mean 30.9 g/dL 30.7-37.3 [facility] - Good corpuscular hemoglobin [facility] concentration [Mass/volume] by Automated count Erythrocyte 18.2 % 11.5-14.0 Above high [facility] - Good distribution width [facility] ospital [Ratio] by Automated count Platelets [#/volume] in 105 K/uL 130-400 Below low normal [facility] - Good Blood by Automated [facility] ospital count Platelet mean volume 13.3 FL 9.2-11.8 Above high [facility] - Good [Entitic volume] in [facility] Blood by Automated count Nucleated 0.0 PER 100 0 [facility] - Good erythrocytes/100 WBC [facility] pital leukocytes [Ratio] in Blood Nucleated erythrocytes 0.00 K/uL 0.0-0.01 [facility] - Good [#/volume] in Blood [facility] Segmented 91 % 48.0-72.0 Above high [facility] - Good neutrophils/100 normal [facility] ital leukocytes in Blood Band form 6 % 0 Above high [facility] - Good neutrophils/100 normal [facility] ital leukocytes in Blood by Manual count Lymphocytes/100 1 % 18.0-40.0 Below low normal [facility] - Good leukocytes in Blood [facility] Monocytes/100 2 % 2.0-12.0 [facility] - Good leukocytes in Blood [facility] Eosinophils/100 0 % 0.0-7.0 [facility] - Good leukocytes in Blood [facility] Basophils/100 0 % 0.0-3.0 [facility] - Good leukocytes in Blood [facility] Metamyelocytes/100 0 % 0 [facility] - Goo d leukocytes in Blood by [facility] Manual count Myelocytes/100 0 % 0 [facility] - Good leukocytes in Blood by [facility] Manual count Promyelocytes/100 0 % 0 [facility] - Good leukocytes in Blood by [facility] Manual count Blasts/100 leukocytes 0 % 0 [facility] - Good in Blood by Manual [facility] ospital count Other cells/100 0 [facility] - Good leukocytes in Blood by [facility] Manual count Immature 0 % [facility] - Good granulocytes/100 [facility] pital leukocytes in Blood by Automated count Segmented neutrophils 34.3 K/UL 2.3-7.6 Above high [facility] - Good [#/volume] in Blood normal [facility] Lymphocytes [#/volume] 0.4 K/UL 0.9-4.2 Below low normal [facility] - Good in Blood [facility] Monocytes [#/volume] in 0.7 K/UL 0.1-1.7 [facility] - Good [facility] Eosinophils [#/volume] 0.0 K/UL 0.0-1.0 [facility] - Good in Blood [facility] Basophils [#/volume] in 0.0 K/UL [facility] - Good [facility] Immature granulocytes 0.0 K/UL [facility] - Good [#/volume] in Blood by [facility] Automated count 2+ANISOCYTOSISSLIGHTHYPOCHROMIAOCCASIONA LPOLYCHROMASIASLIGHTTARGET CELLS Leukocyte morphology finding [Identifier] [facility] - Good [facility] in Blood DOHLE BODIES Platelet adequacy [Presence] in Blood by [facility] Light microscopy Differential cell count method - Blood [facility] ID Date Data Source [id number] 03/17/2020 05:48:39 AM EDT [facility] Name Value Range Interpretation Description Data Sup porting Code Source(s) Document(s ) Sodium 145 136-145 [facility] - [Moles/volume] in mmol/L [facility] or [facility] Potassium 3.0 3.5-5.1 Below low normal [facility] - [Moles/volume] in mmol/L [facility] or [facility] Chloride 117 98-107 Above high [facility] - [Moles/volume] in mmol/L normal [facility] Carbon dioxide, 18 21-32 Below low normal [facility] - total mmol/L Good [Moles/volume] in [facility] Serum or [facility] Anion gap in Serum 13 10-20 [facility] - or Plasma mmol/L [facility] Glucose 98 74-106 [facility] - [Mass/volume] in mg/dL [facility] or [facility] Urea nitrogen 53 7-18 Above high [facility] - [Mass/volume] in mg/dL normal [facility] or [facility] Creatinine 1.45 0.70-1. Above high [facility] - [Mass/volume] in mg/dL 30 normal [facility] or [facility] Glomerular >60 [facility] - filtration Good rate/1.73 sq M [facility] predicted among Hospital blacks [Volume Rate/Area] in Serum or Plasma by Creatinine-based formula (MDRD) Glomerular 50 >60 Below low normal [facility] - filtration ml/min/ Good rate/1.73 sq M 1.73m2 [facility] predicted among Hospital non-blacks [Volume Rate/Area] in Serum or Plasma by Creatinine-based formula (MDRD) Calcium 8.3 8.5-10. Below low normal [facility] - [Mass/volume] in mg/dL 1 [facility] or [facility] Bilirubin.total 0.4 0.2-1.0 [facility] - [Mass/volume] in mg/dL [facility] or [facility] Alanine 26 U/L 13-61 [facility] - aminotransferase Good [Enzymatic [facility] activity/volume] in Hospital Serum or Plasma Aspartate 76 U/L 15-37 Above high [facility] - aminotransferase normal Good [Enzymatic [facility] activity/volume] in Hospital Serum or Plasma by With P-5'-P Alkaline 113 U/L 45-117 [facility] - phosphatase Good [Enzymatic [facility] activity/volume] in Hospital Serum or Plasma Protein 6.5 6.4-8.2 [facility] - [Mass/volume] in g/dL Good Serum or Plasma [facility] Albumin 2.0 3.5-4.7 Below low normal [facility] - [Mass/volume] in g/dL Good Serum or Plasma by [facility] Bromocrel [facility] ([facility]) dye binding method Globulin 4.5 1.7-4.7 [facility] - [Mass/volume] in g/dL Good Serum by [facility] Albumin/Globulin 0.4 0.7-2.8 Below low normal [facility] - [Mass Ratio] in Good Serum or Plasma [facility] ID Date Data Source [id number] 03/16/2020 09:46:34 PM EDT [facility] - [facility] Brief Postoperative NotePatient: Carlyle PateDate of : 1945MRN: [id number] of Procedure: 03/16/2020Pre-O p Diagnosis: FALSE URETHRAL PASSAGEPost-Op Diagnosis: SameProcedure(s):1. Cystoscop y Dilation Urethral Stricture2. Placement [place] Kelly (16Fr)3. CystogramSurgeon( s):Vickie Morales MDSurgical Crm Consultant: NoneAnesthesia: GeneralEstima roby Blood Loss (mL): MinimalComplications: NoneSpecimens:ID Type Source Tests Colle cted by Time DestinationA : URINE CULTURE Urine Bladder CULTURE, URINE Eusebia Morales MD03/16/2020 9:30 PM MicrobiologyImplants: NoneDrains:PEG/Gas trostomy Tube [...] 9:00 PMFindings: DictatedElec tronically Signed by Vickie Morales MD on 03/16/2020 at 9:44 PM Name Value Range Interpretation Code Description Data Annabelle rce(s) Supporting Document(s ) ID Date Data Source [id number] 03/16/2020 09:39:27 PM EDT [facility] XR WRIST RT AP/LATINDICATION.: . Swelli ng and pain on the wrist, with sepsis..TECHNIQUE.: 3 views of the right wrist were acquired.COMPARISON.: No prior studies are available for comparison.KERRY DINGS.: Advanced, multifocal degenerative changes are noted [...] date/time: 03/16/2020 9:39 PMSigned by: RISA CASTRO M Name Value Range Interpretation Code Description Data Annabelle rce(s) Supporting Document(s ) ID Date Data Source [id number] 03/19/2020 10:33:19 AM EDT [facility] Name Value Range Interpretation Description Data Sup porting Code Source(s) Document(s ) Service comment [facility] Bacteria [facility] identified in [facility] Un[facility] Hospital specimen by Culture ID Date Data Source [id number] 03/16/2020 07:35:22 PM EDT [facility] Bedside and Verbal shift change report ashley blanco to Deepti Munguia (oncoming nurse) All KIDD RN (offgoing nurse). Report included the following informationSBAR, Kardex, Intake/Output, MAR and Recent Results. Name Value Range Interpretation Code Description Data Annabelle rce(s) Supporting Document(s ) ID Date Data Source [id number] 03/16/2020 07:28:55 PM EDT [facility] Consult NoteSubjective:Carlyle Pate is a 75 y.o. male being evaluated for Kelly insertion.Earlier today his existing Fol ey catheter was removed and the nursing staff wasunable to reinsert it. Urology was c onsulted.He has a complicated medical and urologic history. Most recently he hads uffered a left basal ganglia hemorrhage applicator by respiratory failure. Hewa s treated at [facility]. Tracheostomy was placed on January 16 emerita s subsequently been transferred to various rehab hospitals most recently [facility] . He was admitted on March 13 to [facility] with a fever of104.7 degrees hypotension and [...] Yes Other, Phys, MDFLUTICASONE PROPIONATE IN [address] [place] [address] route two (2) times [...] 29.8* 27.0* 27.6*PLT 137 131 164Recent Labs 42253 03/15/200350 NA 141 140 140K 3.2* 3.9 3.9CL 112* 110* 109*CO2 19 * 21 22GLU 154* 103 89BUN 55* 46* 41*CREA 1.62* 1.67* 1.78*CA 8.7 7.8* 7.3*ALB 2.2 * 1.9* 2.1*SGOT 124* 143* 104*ALT 29 23 18Cultures:All Micro Results Procedure C omponent Value Units Date/Time CULTURE, BLOOD [[id number]] Collected: 03/16/20 1834 Or jon Status: Completed Specimen: Blood Updated: 03/16/20 1848 CULTURE, BLOOD [ [id number]] Collected: 03/16/20 1824 Order Status: Completed Specimen: Blood Upda roby: 03/16/20 1847 C. DIFFICILE (DNA) [[id number]] Order Status: Sent Specimen : Stool CULTURE, BLOOD [[id number]] Collected: 03/15/20 1145 Order Status: Completed Specimen: Blood Updated: 03/16/20 1016 Special Requests: NO SPEC IAL REQUESTS GRAM STAIN GRAM NEGATIVE RODS AEROBIC BOTTLE CALLED TO AND READ BACK BY RISSA RAMOS RN 9001 03/16/20 TRICIA REID Culture result: IDENTIFICATIO N AND SUSCEPTIBILITY TO FOLLOW CULTURE, RESPIRATORY/SPUTUM/BRONCH W GRAM STAIN [ [id number]] (Abnormal)Collected: 03/14/20 2300 Order Status: Completed Specimen: Sputum,ET Suction Updated: 03/16/20 0757 Special Requests: NO SPECIAL REQUESTS G LOW STAIN 10-25 WBC/lpf <10 EPI/lpf MODERATE GRAM NEGATIVE RODS Culture res ult: LIGHT GROWTH GRAM NEGATIVE RODS IDENTIFICATION AND SUSCEPTIBILITY TO FOL LOW CULTURE, BLOOD [[id number]] Collected: 03/15/20 1140 Order Status: Completed S pecimen: Blood Updated: 03/16/204 Special Requests: NO SPECIAL REQUESTS G LOW STAIN GRAM NEGATIVE RODS AEROBIC AND ANAEROBIC BOTTLES CALLED TO AND READ BA CK BY CORNELIUS RAMOS RN 0414 03/16/20 TRICIA REID Culture result: IDEN TIFICATION AND SUSCEPTIBILITY TO FOLLOW STREP PNEUMO AG, URINE [[id number]] Collected: 03/15/20 0840 Order Status: Completed Specimen: [...] MEMBRANE ASSAY LEGIONELLA PNEUMOPHILA AG , URINE [[id number]] Collected: 03/14/20 0840 Order Status: Completed Specimen: [...] test. Method IMMUNOCHROMATOGRAPHIC MEMBRANE ASSAY CULTURE, URINE [[id number]] (Abnor mal) (Susceptibility) Collected: 03/13/201050 Order Status: Completed Sp ecimen: Cath Urine Updated: 03/15/20 0745 Special Requests: NO SPECIAL REQUESTS C ulture result: >100,000 COLONIES/mL KLEBSIELLA PNEUMONIAE CULTURE, BLOOD [[id number]] (Abnormal) Collected: 03/13/20 2112 Order Status: Completed Specimen: Blood Updated: 03/15/20 06 Special Requests: NO SPECIAL REQUESTS GRAM STAI N ANAEROBIC BOTTLE GRAM NEGATIVE RODS CALLED TO AND READ BACK BY JOSUÉ FAM RN 1032 03/14/2020 Shira CASTANO Culture result: KLEBSIELLA PNEUMONIAE : Refer t o previous culture(s) for susceptibilityresults CULTURE, BLOOD [[id number]] (Abnormal) Collected: 03/13/20 2100 Order Status: Completed Specimen: Blood Updated: 03/15/20 0623 Special Requests: NO SPECIAL REQUESTS GRAM STAI N AEROBIC BOTTLE GRAM NEGATIVE RODS CALLED TO AND READ BACK BY JOSUÉ Kay 1034 03/14/2020 Shira CASTANO Culture result: KLEBSIELLA PNEUMONIAE : Refer to previou s culture(s) for susceptibilityresults Blood Culture [[id number]] (Abnormal) Collecte d: 03/13/20 1040 Order Status: Completed Specimen: Blood Updated: 03/15/20 0614 Special Requests: NO SPECIAL REQUESTS GRAM STAIN GRAM NEGATIVE RODS ON ANAEROBIC B OTTLE CALLED TO AND READ BACK BY LIGIA BARRON RN,CCU,03/13/20 @ 2020 S PAULSO N AEROBIC BOTTLE GRAM NEGATIVE RODS Culture result: KLEBSIELLA PNEUMONIAE : Refer t o previous culture(s) for susceptibilityresults Blood Culture [[id number]] (Abnormal) (Susceptibility) Collected: Order Status: Completed Specimen: Blood Updated: 03/15/20 0612 Special Requests: NO SPECIAL REQUE STS GRAM STAIN GRAM NEGATIVE RODS on AEROBIC AND ANAEROBIC BOTTLES CALLED TO AND READ BACK BY LIGIA BARRON RN,CCU,03/13/20 @ 2020 S PAULSO N Culture result: KLEBSIELLA PNEUMONIAE PRE-SURGICAL COVID PCR [[id number]] Colle cted: 03/13/20 1315 Order Status: Completed Specimen: Miscellaneous sample Updated: 03/13/202035 SARS-CoV-2 Not detected Comment: Testing Performed by:Giles 5 YARELY Hinds [id number] REPORT FROM REFERENCE LAB CULTURE, RESPIRATORY/ SPUTUM/BRONCH W GRAM STAIN [[id number]] Order Status: Sent Specimen: Sputum from Tra nstracheal Aspirate COVID-19, CONCRETE BUSTER OPERATOR [[id number]] Collected: 03/13/20 1315 Order Status: ChadwickI made multiple sequential attempts to place a catheter under sterileconditi ons. This included gentle placement of a 16 Cymro and 14 Cymro coudeunsuccessfully . This was followed by flexible [...] contrast. Sagittal and coronal reconstruction was performed.Utilizing car ferry master algorithm the examination was performed to optimiz [...] the solid abdominal viscera and softtissues. Using car ferry master's algori thms the examination was performed tooptimize [...] Supporting Document(s ) ID Date Data Source [id number] 03/16/2020 07:02:25 PM EDT [facility] Relevant ProblemsNo relevant active prob lemsAnesthetic HistoryReview [...] Supporting Document(s ) ID Date Data Source [id number] 03/16/2020 07:01:37 PM EDT [facility] Stool for cdiff sent ,had 3 loose brown bowel movements Name Value Range Interpretation Code Description Data Annabelle rce(s) Supporting Document(s ) ID Date Data Source [id number] 03/16/2020 06:58:13 PM EDT [facility] Unable to insert the kelly at bedside .U rologist will take the patient to OR forfoley placement .called the Flory and lisa vazquez aware about the situation Name Value Range Interpretation Code Description Data Annabelle rce(s) Supporting Document(s ) ID Date Data Source [id number] 03/16/2020 06:56:11 PM EDT [facility] Unable to place the kelly , called urolo gy consult for placing kelly , Name Value Range Interpretation Code Description Data Annabelle rce(s) Supporting Document(s ) ID Date Data Source [id number] 03/21/2020 05:26:46 AM EDT [facility] Name Value Range Interpretation Description Data Sup porting Code Source(s) Document(s ) Service comment [facility] Bacteria [facility] identified in [facility] specimen by Culture ID Date Data Source [id number] 03/22/2020 03:57:15 PM EDT [facility] Name Value Range Interpretation Description Data Sup porting Code Source(s) Document(s ) Service comment [facility] - Good [facility] Bacteria [facility] - Good identified in [facility] specimen by Culture ID Date Data Source [id number] 03/16/2020 08:23:40 PM EDT [facility] - Good [facility] Name Value Range Interpretation Description Data Sup porting Code Source(s) Document(s ) Leukocytes 40.5 4.8-10.6 Above upper panic [facility] - Goo d [#/volume] in K/uL limits [facility] Blood by Hospital Automated count CALLED TO AND READ BACK ESTER Daily 195303/16/20,NATE MOLINA Erythrocytes [#/volume] 3.17 M/uL 4.70-6.00 Below low normal [facility] - Good in Blood by Automated [facility] count Hemoglobin 9.3 g/dL 14.0-18.0 Below low normal [facility] - Good [Mass/volume] in Blood [facility] Hematocrit [Volume 29.4 % 42.0-52.0 Below low normal [facility] - Good Fraction] of Blood by [facility] Automated count Erythrocyte mean 92.7 FL 81.0-94.0 [facility] - Good corpuscular volume [facility] ospital [Entitic volume] by Automated count Erythrocyte mean 29.3 PG 27.0-35.0 [facility] - Good corpuscular hemoglobin [facility] [Entitic mass] by Automated count Erythrocyte mean 31.6 g/dL 30.7-37.3 [facility] - Good corpuscular hemoglobin [facility] concentration [Mass/volume] by Automated count Erythrocyte 18.2 % 11.5-14.0 Above high [facility] - Good distribution width normal [facility] ospital [Ratio] by Automated count Platelets [#/volume] in 130 K/uL 130-400 [facility] - Good Blood by Automated [facility] ospital count Platelet mean volume 13.2 FL 9.2-11.8 Above high [facility] - Good [Entitic volume] in normal [facility] Blood by Automated count Nucleated 0.0 PER 100 0 [facility] - Good erythrocytes/100 WBC [facility] pital leukocytes [Ratio] in Blood Nucleated erythrocytes 0.00 K/uL 0.0-0.01 [facility] - Good [#/volume] in Blood [facility] Segmented 85 % 48.0-72.0 Above high [facility] - Good neutrophils/100 normal [facility] ital leukocytes in Blood Band form 8 % 0 Above high [facility] - Good neutrophils/100 normal [facility] ital leukocytes in Blood by Manual count Lymphocytes/100 5 % 18.0-40.0 Below low normal [facility] - Good leukocytes in Blood [facility] Monocytes/100 2 % 2.0-12.0 [facility] - Good leukocytes in Blood [facility] Eosinophils/100 0 % 0.0-7.0 [facility] - Good leukocytes in Blood [facility] Basophils/100 0 % 0.0-3.0 [facility] - Good leukocytes in Blood [facility] Metamyelocytes/100 0 % 0 [facility] - Goo d leukocytes in Blood by [facility] Manual count Myelocytes/100 0 % 0 [facility] - Good leukocytes in Blood by [facility] Manual count Promyelocytes/100 0 % 0 [facility] - Good leukocytes in Blood by [facility] Manual count Blasts/100 leukocytes 0 % 0 [facility] - Good in Blood by Manual [facility] ospital count Other cells/100 0 [facility] - Good leukocytes in Blood by [facility] Manual count Immature 0 % [facility] - Good granulocytes/100 [facility] pital leukocytes in Blood by Automated count Segmented neutrophils 37.7 K/UL 2.3-7.6 Above high [facility] - Good [#/volume] in Blood normal [facility] Lymphocytes [#/volume] 2.0 K/UL 0.9-4.2 [facility] - Good in Blood [facility] Monocytes [#/volume] in 0.8 K/UL 0.1-1.7 [facility] - Good [facility] Eosinophils [#/volume] 0.0 K/UL 0.0-1.0 [facility] - Good in Blood [facility] Basophils [#/volume] in 0.0 K/UL [facility] - Good [facility] Immature granulocytes 0.0 K/UL [facility] - Good [#/volume] in Blood by [facility] Automated count 2+ANISOCYTOSIS1+HYPOCHROMIAOCCASIONALPOL YCHROMASIAOCCASIONALSCHISTOCYTES Leukocyte morphology finding [Identifier] [facility] in Blood DOHLE BODIES1+TOXIC GRANULATION Platelet adequacy [Presence] in Blood by [facility] Light microscopy Differential cell count method - Blood [facility] ID Date Data Source [id number] 03/18/2020 07:54:58 AM EDT [facility] Name Value Range Interpretation Description Data Sup porting Code Source(s) Document(s ) Clostridium NEG [facility] difficile toxin [facility] genes [Presence] Hospital in Stool by Probe and target amplification method This specimen is negative for toxigenic C difficile by DNA amplification. Repeat testing is not recommended for confirmat ion, samples received within 7 days of this negative result will be rejected. ID Date Data Source [id number] 03/16/2020 03:26:12 PM EDT [facility] Progress NotePatient: Carlyle Pate Sex: male DOA: [...] Supporting Document(s ) ID Date Data Source [id number] 03/16/2020 02:30:25 PM EDT [facility] CT CHEST ABD PELV WO CONTHistory: Persi stent bacteremia and worsening leukocytosis.Technique: CT of the chest , abdomen and pelvis was performed from the thoracicinlet to the pubic symphysis wit hout oral and intravenous contrast. Coronal andsagittal reformats were performed. Th e lack of intravenous contrast and oralcontrast limits evaluation of the so lid abdominal viscera and soft tissues.Using car ferry master's algorithms the examinatio n was performed to [...] this noncontrast e xam.PS Electronically Signed: Harlan Kakkanatt, MD 03/16/2020 2:30 PM Signing date/time: 03/16/2020 2:30 PMSigned by: HARLAN SARABIA Name Value Range Interpretation Code Description Data Annabelle rce(s) Supporting Document(s ) ID Date Data Source [id number] 03/16/2020 01:41:57 PM EDT [facility] Tried to replace the kelly unable to get the urine out and he started oozingaround the penis, called urologist Dr Morales for further evaluation Name Value Range Interpretation Code Description Data Annabelle rce(s) Supporting Document(s ) ID Date Data Source [id number] 03/16/2020 12:00:49 PM EDT [facility] ID Progress Note03/16/2020Subjective:Curr ently afebrile.No other changes.Objective:Vitals:Visit [...] No cyanosis o r edema.Labs:CBC:Recent Labs 03/15/200350 03/14/200434WBC 51.9* 39.8* 27.3*RBC 3.24* 2.89* 2.93*HGB 9.4* 8.5* 8.5*HCT 29.8* 27.0* 27.6*PLT 137 131 164 GRANS 86* 88* 82*LYMPH 2* 1* 1*EOS 0 0 0CMP:Recent Labs 350 03/14/200434GLU 154* 103 89NA 141 140 140K 3.2* [...] contrast. Sagittal and coronal reconstruction was performed.Utilizing car ferry master algorithm the examination was performed to optimiz [...] time o f this examination; BIBA from [facility] for resfailure Pt has trach collar [...] without an intraluminal thrombus. 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 Status post admission to [facility] on 01/31-> 03/12--> [facility] --> [facility] 03/13 secondary to lethargy, respiratory distress, fever andhypotension-Cultures at [facility] showing G NR / bottles; Klebsiella sepsis, Clinicallyimproving, but significant loretta kocytosis - worsening. 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 Wean hydrocortisone 50 mg e39g-UKT edema asymmetric. Dopplers negative-Afib rate controlled. Patient on DVT treatment dosage of lovenox prior totransfer, will continue-On vent due to AMS, on 40% PEEP 5 PRVC. Tolerated CPAP/PS. Will trial trac hcollar during the day as patient was previously on trach collar-DVT and SUP p rophy-Updated [phone]:Awake, interactiv e.Past Medical History:Diagnosis Date Anxiety Aphasia [...] route two (2) times a day.Yes Other, Phys MDg abapentin (NEURONTIN) 100 mg capsule 100 [...] Other, P hys, MDFLUTICASONE PROPIONATE IN 1 [place] by Nasal route two (2) times a [...] )hours as needed for Pain. Yes Other, PhysElena Known AllergiesSocial HistoryTobacc o Use Smoking status: Former Smoker Smokeless tobacco: Never UsedSubstance U se Topics Alcohol use: Not CurrentlyHistory reviewed. No pertinent family history.Cu rrent Facility-Administered MedicationsMedication Dose Route Frequen cy hydrocortisone Sod Succ (PF) (SOLU-CORTEF) injection 50 mg 50 mg Int ucCWFbhkC10H cefTRIAXone (ROCEPHIN) 2 g in 0.9% sodium [...] oz)SpO2 97%BMI 29.87 kg/m O2 Device: Sushant henryTeelo (24hrs), Av.5 F (36.9 C), Min:97.9 F [...] STAIN CALLED TO AND READ BACK BY CORNELIUS RAMOS RN 0414 03/16/20 TRICIA REID Culture result: IDENTIFICATION AND SUSCEPTIBILITY TO FOL LOWCULTURE, BLOOD Collection Time: 03/15/20 11:45 AMResult Value Ref Range Special R equests: NO SPECIAL REQUESTS GRAM STAIN GRAM NEGATIVE RODS AEROBIC BOTTLE GRAM STAIN CALLED TO AND READ BACK BY RISSA RAMOS RN 0414 03/16/20 TRICIA PARKINSON Culture result: IDENTIFICATION AND SUSCEPTIBILITY TO FOLLOWCBC [...] Supporting Document(s ) ID Date Data Source [id number] 03/16/2020 09:29:02 AM EDT [facility] Problem: Mobility Impaired (Adult and Pe diatric)Goal: [...] independently (but owns RW/SC); mostrecently coming from [facility], [facility] [place] SituationHome Env ironment: Rehabilitation [...] assistance;Assist x2Sit to Supine: Moder ate assistance;Assist [id number] Exercises:Ankle pumps, LAQ, marches, UE flexionPain:Pain Scale [...] Supporting Document(s ) ID Date Data Source [id number] 03/16/2020 07:26:52 AM EDT [facility] Bedside and Verbal shift change report ashley House RN (oncoming nurse) byCait Ramos RN (offgoing nurse). Report incl uded the following informationSBAR, Intake/Output, MAR, Recent Results and C ardiac Rhythm A-fib. Name Value Range Interpretation Code Description Data Annabelle rce(s) Supporting Document(s ) ID Date Data Source [id number] 03/16/2020 07:33:49 AM EDT [facility] Name Value Range Interpretation Description Data Sup porting Code Source(s) Document(s ) Leukocytes 51.9 4.8-10.6 Above upper panic [facility] - Goo d [#/volume] in K/uL limits [facility] Blood by Hospital Automated count CALLED TO AND READ BACK BYRYAN CHEUNG EN RN [id number] 03/16/20 TRICIA REID Erythrocytes [#/volume] 3.24 M/uL 4.70-6.00 Below low normal [facility] - Good in Blood by Automated [facility] count Hemoglobin 9.4 g/dL 14.0-18.0 Below low normal [facility] - Good [Mass/volume] in Blood [facility] Hematocrit [Volume 29.8 % 42.0-52.0 Below low normal [facility] - Good Fraction] of Blood by [facility] Automated count Erythrocyte mean 92.0 FL 81.0-94.0 [facility] - Good corpuscular volume [facility] ospital [Entitic volume] by Automated count Erythrocyte mean 29.0 PG 27.0-35.0 [facility] - Good corpuscular hemoglobin [facility] [Entitic mass] by Automated count Erythrocyte mean 31.5 g/dL 30.7-37.3 [facility] - Good corpuscular hemoglobin [facility] concentration [Mass/volume] by Automated count Erythrocyte 17.9 % 11.5-14.0 Above high [facility] - Good distribution width normal [facility] ospital [Ratio] by Automated count Platelets [#/volume] in 137 K/uL 130-400 [facility] - Good Blood by Automated [facility] ospital count Nucleated 0.0 PER 100 0 [facility] - Good erythrocytes/100 WBC [facility] pital leukocytes [Ratio] in Blood Nucleated erythrocytes 0.00 K/uL 0.0-0.01 [facility] - Good [#/volume] in Blood [facility] Segmented 86 % 48.0-72.0 Above high [facility] - Good neutrophils/100 normal [facility] ital leukocytes in Blood Band form 7 % 0 Above high [facility] - Good neutrophils/100 normal [facility] ital leukocytes in Blood by Manual count Lymphocytes/100 2 % 18.0-40.0 Below low normal [facility] - Good leukocytes in Blood [facility] Monocytes/100 4 % 2.0-12.0 [facility] - Good leukocytes in Blood [facility] Eosinophils/100 0 % 0.0-7.0 [facility] - Good leukocytes in Blood [facility] Basophils/100 0 % 0.0-3.0 [facility] - Good leukocytes in Blood [facility] Myelocytes/100 1 % 0 Above high [facility] - Good leukocytes in Blood by [facility] Manual count Immature 0 % [facility] - Good granulocytes/100 [facility] pital leukocytes in Blood by Automated count Segmented neutrophils 48.8 K/UL 2.3-7.6 Above high [facility] - Good [#/volume] in Blood [facility] Lymphocytes [#/volume] 1.0 K/UL 0.9-4.2 [facility] - Good in Blood [facility] Monocytes [#/volume] in 2.1 K/UL 0.1-1.7 Above high [facility] - Good Blood [facility] Eosinophils [#/volume] 0.0 K/UL 0.0-1.0 [facility] - Good in Blood [facility] Basophils [#/volume] in 0.0 K/UL [facility] - Good [facility] Immature granulocytes 0.0 K/UL [facility] - Good [#/volume] in Blood by [facility] Automated count 2+ANISOCYTOSISSLIGHTACANTHOCYTESSLIGHTOV ALOCYTES Platelet adequacy [Presence] in Blood by [facility] Light microscopy Differential cell count method - Blood [facility] ID Date Data Source [id number] 03/16/2020 05:03:41 AM EDT [facility] Name Value Range Interpretation Description Data Sup porting Code Source(s) Document(s ) Sodium 141 136-145 [facility] - [Moles/volume] in mmol/L [facility] Serum or Plasma [facility] Potassium 3.2 3.5-5.1 Below low normal [facility] - [Moles/volume] in mmol/L [facility] Serum or [facility] Chloride 112 98-107 Above high [facility] - [Moles/volume] in mmol/L normal [facility] Serum or [facility] Carbon dioxide, 19 21-32 Below low normal [facility] - total mmol/L Good [Moles/volume] in [facility] Serum or Plasma Hospital Anion gap in Serum 13 10-20 [facility] - or Plasma mmol/L Good [facility] Glucose 154 74-106 Above high [facility] - [Mass/volume] in mg/dL normal Good Serum or Plasma [facility] Urea nitrogen 55 7-18 Above high [facility] - [Mass/volume] in mg/dL normal Good Serum or Plasma [facility] Creatinine 1.62 0.70-1. Above high [facility] - [Mass/volume] in mg/dL 30 normal Good Serum or Plasma [facility] Glomerular 53 >60 Below low normal [facility] - filtration ml/min/ Good rate/1.73 sq M 1.73m2 [facility] predicted among Hospital blacks [Volume Rate/Area] in Serum or Plasma by Creatinine-based formula (MDRD) Glomerular 44 >60 Below low normal [facility] - filtration ml/min/ Good rate/1.73 sq M 1.73m2 [facility] predicted among Hospital non-blacks [Volume Rate/Area] in Serum or Plasma by Creatinine-based formula (MDRD) Calcium 8.7 8.5-10. [facility] - [Mass/volume] in mg/dL 1 Good Serum or Plasma [facility] Bilirubin.total 0.6 0.2-1.0 [facility] - [Mass/volume] in mg/dL Good Serum or Plasma [facility] Alanine 29 U/L 13-61 [facility] - aminotransferase Good [Enzymatic [facility] activity/volume] in Hospital Serum or Plasma Aspartate 124 U/L 15-37 Above high [facility] - aminotransferase normal Good [Enzymatic [facility] activity/volume] in Hospital Serum or Plasma by With P-5'-P Alkaline 112 U/L 45-117 [facility] - phosphatase Good [Enzymatic [facility] activity/volume] in Hospital Serum or Plasma Protein 7.3 6.4-8.2 [facility] - [Mass/volume] in g/dL Good Serum or Plasma [facility] Albumin 2.2 3.5-4.7 Below low normal [facility] - [Mass/volume] in g/dL Good Serum or Plasma by [facility] Bromocresol [facility] ([facility]) dye binding method Globulin 5.1 1.7-4.7 Above high [facility] - [Mass/volume] in g/dL normal Good Serum by [facility] calculation Hospital Albumin/Globulin 0.4 0.7-2.8 Below low normal [facility] - [Mass Ratio] in Good Serum or Plasma [facility] ID Date Data Source [id number] 03/15/2020 10:31:03 PM EDT [facility] Problem: Falls - Risk ofGoal: *Absence o [...] Name Value Range Interpretation Code Description Data [facility](s) Supporting Document(s ) ID Date Data Source [id number] 03/15/2020 10:00:17 PM EDT [facility] Trach to vent, tolerating well. O2 sat 9 3-98%, will continue to monitor. Name Value Range Interpretation Code Description Data [facility] ) ID Date Data Source [id number] 03/15/2020 09:54:29 PM EDT [facility] Patient placed on full ventilatory suppo rt-- PRVC/450/14/40%/+5 due to increasedwork of breathing--o2sat Between 88-89%, RR in the 30s. RN aware. RT willcontinue to monitor patient for possible return to C PAP/PS. Name Value Range Interpretation Code Description Data Annabelle rce(s) Supporting Document(s ) ID Date Data Source [id number] 03/15/2020 07:54:50 PM EDT [facility] Bedside and Verbal shift change report ashley sonjanando to Cait Ramos RN (oncomingnurse) by Mirtha Balderas RN (offgoing nurse). Report included the following information SBAR, Kardex, EDSummary, Pro cedure Summary, Intake/Output, MAR, Accordion, Recent Results, MedRec Status , Cardiac Rhythm NSR and Alarm Parameters . Name Value Range Interpretation Code Description Data Annabelle rce(s) Supporting Document(s ) ID Date Data Source [id number] 03/15/2020 07:53:07 PM EDT [facility] Called to room by staff member, patient removed trach from neck. In no acutedistress. Saturation 90% Shiley trach # 6 reins erted without difficulty.Trach collar maintained.. No bleeding. Dr Gramajo ca lled and informed Patientto be restrained, order obtained from Dr Gramajo. No furthe r orders. Name Value Range Interpretation Code Description Data [facility] rce(s) Supporting Document(s ) ID Date Data Source [id number] 03/15/2020 04:36:33 PM EDT [facility] Progress NotePatient: Carlyle Pate Sex: male DOA: [...] PHI, PCO2, PCO2I, PO2, PO2I, HCO3, HCO3I, FIO2,GRD1CSPSUZ: No results found for: APTT, PTP, INR, [...] chloride infusion, 50 mL/h r, IntraVENous, CONTINUOUS, Sd Gramajo MD, Last Rate: 100 mL/hr at [...] per C&SAmikacin x1 ordered by IDBlood Cx /4 + for GNBRepea t blood cxCont IVFPulm followingCont Midodrine and SolucortefWBC worse today but clinically doing better, repeat in AMUrine strep AG and legionella ordered2 )Acute respiratory failure:Cont vent by trachPulm managing ventCont nebs3)Metabo lc encephalopathy:ImprovedDue to #1 and #2Full codeDVT ppx: Lovenox Name Value Range Interpretation Code Description Data Annabelle rce(s) Supporting Document(s ) ID Date Data Source [id number] 03/15/2020 04:04:00 PM EDT [facility] Pulmonary/CCM Progress NoteName: Carlyle Pate : 1945 [facility]IM PRESSION/[id number] male with a history of reported atrial fibrillation 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 Status post admission to [facility] on 01/31-> 03/12--> [facility] --> [facility] 03/13 secondary to lethargy, respiratory distress, fever andhypotension-Cultures at [facility] showing G NR 02/02 bottles; Klebsiella [...] trachc ollar-DVT and SUP prophy-Will update Flory [phone]:Awake, int eractive. Placed on CPAP/PS 10/5 --> TV 500-600 ml comfortablePast Medical Histo [...] Other, P hys, MDFLUTICASONE PROPIONATE IN 1 [place] by Nasal route two (2) times a [...] Name Value Range Interpretation Code Description Data [facility] rce(s) Supporting Document(s ) ID Date Data Source [id number] 03/17/2020 08:41:55 AM EDT [facility] Name Value Range Interpretation Code Description Data Annabelle rce(s) Supporting Document(s ) Service [facility] GRAM NEGATIVE RODSAEROBIC BOTTLECALLED T O AND READ BACK BYRISSA RAMOS,ADDIE 0414 03/16/20 TRICIA REIS PNE UMONIAE: Refer to previous culture(s) for susceptibility results ID Date Data Source [id number] 03/17/2020 08:39:54 AM EDT [facility] Name Value Range Interpretation Code Description Data Annabelle rce(s) Supporting Document(s ) Service [facility] GRAM NEGATIVE RODSAEROBIC AND ANAEROBIC BOTTLESCALLED TO AND READ BACK BYCORNELIUS RAMOS RN 0414 03/16/20 TRICIA LUPEVALERIA ESPARZAIELLA PNEUMONIAE: Refer to previous culture(s) for susceptibility results ID Date Data Source [id number] 03/15/2020 10:40:55 AM EDT [facility] RECOMMENDATIONS:Suggest change EN to fib er-free EN: [...] AGAP 14 03/15/2020 03:50 AM GLU 103 05/03/2020 03:50 AM BUN 46 (H) 03/15/2020 03:50 [...] at 03/15/2020 1003Last data filed at 03/15/20 20 0630Gross per 24 hourIntake 2377.66 mlOutput 830 [...] CrDischarge Planning:Pending Clinical Course [x] No cultural, hinduism, or ethnic dietary needs identified [] Cultural, hinduism and e thnic food preferences identified and addressed [] Participated in care plan, discharge planning/Interdisciplinary roundsFrmirtha Lawson RD Name Value Range Interpretation Code Description Data Annabelle rce(s) Supporting Document(s ) ID Date Data Source [id number] 03/15/2020 10:39:35 AM EDT [facility] ID Progress Note03/15/2020Subjective:Curr ently afebrile.No other changes.Objective:Vitals:Visit [...] Sagittal and coronal reconstr uction was performed.Utilizing car ferry master algorithm the examination was performed to optimizeimaging [...] time o f this examination; BIBA from [facility] for resfailure Pt has trach collar [...] without an intraluminal thrombus. Inaddition, the right record label internship al jugular vein, cephalic vein and [...] Name Value Range Interpretation Code Description Data [facility] rce(s) Supporting Document(s ) ID Date Data Source [id number] 03/15/2020 10:37:45 AM EDT [facility] Name Value Range Interpretation Description Data Sup porting Code Source(s) Document(s ) Vancomycin 15.0 10-20 [facility] - Good [Mass/volume] ug/mL Sabianist in Serum or Hospital Plasma --trough (NOTE)Trough levels of 15-20 ug/mL shoul d be targeted for patients withcoagulase negative Staphylococcus and MRSA pneumon ia, endocarditis,osteomyelitis, meningitis, and bacteremia; as well as patients notr esponding to lower levels. Trough levels of 10-15 ug/mL forinfections from other [facility] (e.g. urinary tract, cellulitis) areappropriate. All patients receiving c oncomitant nephrotoxic therapiesshould have their function closely monitored regardl ess of peak ortrough levels. ID Date Data Source [id number] 03/15/2020 11:19:08 AM EDT [facility] Name Value Range Interpretation Description Data Sup porting Code Source(s) Document(s ) Streptococcus NEG [facility] pneumoniae Ag Sabianist [Presence] in Hospital Urine Presumptive negative suggests nocurrent or recent pneumococcal infection.Infection due to S.pneumonia cannot beruled out si nce the antigen presentin the sample may be below the detectionlimit of the test. Th is test is notintended as a substitute for gram stainand bacterial culture Service comment [facility] ID Date Data Source [id number] 03/15/2020 07:25:56 AM EDT [facility] Bedside shift change report given to Ashley banegas RN (oncoming nurse) by Sherri (offgoing nurse). Report included the fo llowing information SBAR,Kardex, ED Summary, Intake/Output, MAR, Recent Results and C ardiac Rhythm NSR. Name Value Range Interpretation Code Description Data Annabelle rce(s) Supporting Document(s ) ID Date Data Source [id number] 03/15/2020 06:54:40 AM EDT [facility] Name Value Range Interpretation Description Data Sup porting Code Source(s) Document(s ) Leukocytes 39.8 4.8-10.6 Above upper panic [facility] - Goo d [#/volume] in K/uL limits Sabianist Blood by [facility] Automated count CALLED TO AND READ BACK BYWONG MOSLEY RN 0541 03/15/20,NATE MOLINA Erythrocytes [#/volume] 2.89 M/uL 4.70-6.00 Below low normal [facility] Good in Blood by Automated [facility] count Hemoglobin 8.5 g/dL 14.0-18.0 Below low normal [facility] - Good [Mass/volume] in Blood [facility] Hematocrit [Volume 27.0 % 42.0-52.0 Below low normal [facility] - Good Fraction] of Blood by [facility] Automated count Erythrocyte mean 93.4 FL 81.0-94.0 [facility] - Good corpuscular volume [facility] ospital [Entitic volume] by Automated count Erythrocyte mean 29.4 PG 27.0-35.0 [facility] - Good corpuscular hemoglobin [facility] [Entitic mass] by Automated count Erythrocyte mean 31.5 g/dL 30.7-37.3 [facility] - Good corpuscular hemoglobin [facility] concentration [Mass/volume] by Automated count Erythrocyte 17.7 % 11.5-14.0 Above high [facility] - Good distribution width normal [facility] ospital [Ratio] by Automated count Platelets [#/volume] in 131 K/uL 130-400 [facility] - Good Blood by Automated [facility] ospital count Platelet mean volume 12.9 FL 9.2-11.8 Above high [facility] - Good [Entitic volume] in [facility] Blood by Automated count Nucleated 0.0 PER 100 0 [facility] - Good erythrocytes/100 WBC [facility] pital leukocytes [Ratio] in Blood Nucleated erythrocytes 0.00 K/uL 0.0-0.01 [facility] - Good [#/volume] in [facility] Segmented 88 % 48.0-72.0 Above high [facility] - Good neutrophils/100 [facility] ital leukocytes in Blood Band form 10 % 0 Above high [facility] - Good neutrophils/100 normal [facility] ital leukocytes in Blood by Manual count Lymphocytes/100 1 % 18.0-40.0 Below low normal [facility] - Good leukocytes in [facility] Monocytes/100 0 % 2.0-12.0 Below low normal [facility] - G ood leukocytes in [facility] Eosinophils/100 0 % 0.0-7.0 [facility] - Good leukocytes in [facility] Basophils/100 0 % 0.0-3.0 [facility] - Good leukocytes in [facility] Metamyelocytes/100 1 % 0 Above high [facility] - Go od leukocytes in Blood by [facility] Manual count Immature 0 % [facility] Good granulocytes/100 [facility] pital leukocytes in Blood by Automated count Segmented neutrophils 39.4 K/UL 2.3-7.6 Above high [facility] - Good [#/volume] in Blood [facility] Lymphocytes [#/volume] 0.4 K/UL 0.9-4.2 Below low normal [facility] - Good in [facility] Monocytes [#/volume] in 0.0 K/UL 0.1-1.7 Below low normal [facility] Eosinophils [#/volume] 0.0 K/UL 0.0-1.0 [facility] Basophils [#/volume] in 0.0 K/UL [facility] Immature granulocytes 0.0 K/UL [facility] - Good [#/volume] in Blood by [facility] Automated count 2+ANISOCYTOSIS Platelet adequacy [Presence] in Blood by [facility] Light microscopy Differential cell count method - Blood [facility] ID Date Data Source [id number] 03/15/2020 05:30:00 AM EDT [facility] Name Value Range Interpretation Description Data Sup porting Code Source(s) Document(s ) Sodium 140 136-145 [facility] - [Moles/volume] in mmol/L [facility] Serum or [facility] Potassium 3.9 3.5-5.1 [facility] - [Moles/volume] in mmol/L [facility] Serum or [facility] Chloride 110 98-107 Above high [facility] - [Moles/volume] in mmol/L normal [facility] Carbon dioxide, 21 21-32 [facility] - total mmol/L Good [Moles/volume] in [facility] or [facility] Anion gap in Serum 14 10-20 [facility] - or Plasma mmol/L [facility] Glucose 103 74-106 [facility] - [Mass/volume] in mg/dL [facility] or [facility] Urea nitrogen 46 7-18 Above high [facility] - [Mass/volume] in mg/dL normal [facility] or [facility] Creatinine 1.67 0.70-1. Above high [facility] - [Mass/volume] in mg/dL 30 normal Good Serum or Plasma [facility] Glomerular 52 >60 Below low normal [facility] - filtration ml/min/ Good rate/1.73 sq M 1.73m2 [facility]ianist predicted among Hospital blacks [Volume Rate/Area] in Serum or Plasma by Creatinine-based formula (MDRD) Glomerular 43 >60 Below low normal [facility] - filtration ml/min/ Good rate/1.73 sq M 1.73m2 Sabianist predicted among Hospital non-blacks [Volume Rate/Area] in Serum or Plasma by Creatinine-based formula (MDRD) Calcium 7.8 8.5-10. Below low normal [facility] - [Mass/volume] in mg/dL 1 Good Serum or Plasma [facility] Bilirubin.total 0.7 0.2-1.0 [facility] - [Mass/volume] in mg/dL Good Serum or Plasma [facility] Alanine 23 U/L 13-61 [facility] - aminotransferase Good [Enzymatic Sabianist activity/volume] in Hospital Serum or Plasma Aspartate 143 U/L 15-37 Above high [facility] - aminotransferase normal Good [Enzymatic Sabianist activity/volume] in Hospital Serum or Plasma by With P-5'-P Alkaline 76 U/L 45-117 [facility] - phosphatase Good [Enzymatic Sabianist activity/volume] in Hospital Serum or Plasma Protein 6.2 6.4-8.2 Below low normal [facility] - [Mass/volume] in g/dL Good Serum or Plasma [facility] Albumin 1.9 3.5-4.7 Below low normal [facility] - [Mass/volume] in g/dL Good Serum or Plasma by [facility]ist Bromocresol purple [facility] (BCP) dye binding method Globulin 4.3 1.7-4.7 [facility] - [Mass/volume] in g/dL Good Serum by [facility] Albumin/Globulin 0.5 0.7-2.8 Below low normal [facility] - [Mass Ratio] in Good Serum or Plasma [facility] ID Date Data Source [id number] 03/17/2020 11:13:00 AM EDT [facility] Name Value Range Interpretation Code Description Data Annabelle rce(s) Supporting Document(s ) Service [facility] 10-25 WBC/lpf<10 EPI/lpfMODERATEGRAM NEG ATIVE RODSLIGHT GROWTHPSEUDOMONAS AERUGINOSA ID Date Data Source [id number] 03/17/2020 11:13:00 AM EDT [facility] Name Value Range Interpretation Code Description Data Supporting Source(s) Document(s ) Ceftazidime 8 ug/mL Susceptible. [facility] - [Susceptibility] Indicates for Good by Minimum microbiology [facility] inhibitory susceptibilities Hospital concentration only. (ADIS) Ciprofloxacin Susceptible. [facility] - [Susceptibility] Indicates for Good by Minimum microbiology [facility] inhibitory susceptibilities Hospital concentration only. (ADIS) Gentamicin Susceptible. [facility] - [Susceptibility] Indicates for Good by Minimum microbiology [facility] inhibitory susceptibilities Hospital concentration only. (ADIS) Tobramycin Susceptible. [facility] - [Susceptibility] Indicates for Good by Minimum microbiology [facility] inhibitory susceptibilities Hospital concentration only. (ADIS) Cefepime 4 ug/mL Susceptible. [facility] - [Susceptibility] Indicates for Good by Minimum microbiology [facility] inhibitory susceptibilities Hospital concentration only. (ADIS) ID Date Data Source [id number] 03/14/2020 06:37:52 PM EDT [facility] Progress NotePatient: Carlyle Pate Sex: male DOA: [...] PCO2, PCO2I, PO2, PO2I, HCO3, H CO3I, FIO2,[id number]: No results found for: APTT, PTP, INR, [...] and zosynAmikacin x1 ordered by IDBlood Cx 4/4 + for GNBSource unclear at this point, ?plumonaryCont IVFPulm follo wingMidodrine and Solucortef addedRepeat blood Cx orderedRecheck WBC in AMUrine s trep AG and legionella ordered2)Acute respiratory failure:Cont vent by trachPu lm managing ventCont nebs3)Metabolc encephalopathy:Due to #1 and #2Full code DVT ppx: Lovenox Name Value Range Interpretation Code Description Data Annabelle rce(s) Supporting Document(s ) ID Date Data Source [id number] 03/14/2020 05:36:05 PM EDT [facility] Patient received with eyes Closed easil y arousable on ventilator , levophedstill in Progress for b/p . Shakes head for yes or no when simple QuestionIs asked. Blood tinged secretion persist with suction . No s/s of distressnoted. Name Value Range Interpretation Code Description Data Annabelle rce(s) Supporting Document(s ) ID Date Data Source [id number] 03/14/2020 04:14:07 PM EDT [facility] Pt transferred to SICU today. JAZMYNE reviewe d chart. FYI completed to advise MD Galindo to to be completed 24 hours prior of dis charge back to [facility] and Dr. Nicholsonct information. JAZMYNE also requested PT/OT via RN/FYI for MD. JAZMYNE reached outto MD/RN directly. 03/13/2020- NEGATIVE Covid stat us. [facility], liaisonMaryse awareof status.CM will continue to follow. Name Value Range Interpretation Code Description Data [facility] rce(s) Supporting Document(s ) ID Date Data Source [id number] 03/14/2020 03:05:14 PM EDT [facility] History and PhysicalPatient: Carlyle pimentel Sex: male DOA: 03/13/2020Date of : 1945 Age: 75 y.o.HPI:Carlyle Pate is a 75 y.o. male who is transferred from [facility] for acu terespiratory distress. Patient is unresponsive, history is obtained from thechart. pt was admitted to [facility] in December secondary to left basalganglia hemorrhage complicated by respiratory failure secondary to mucousp lugging and pneumonia. Patient underwent tracheostomy and PEG insertion onDecember 30. Patient subsequently transferred to [facility] on 01/31 for ventweaning. He was discharged to [facility] on 03/12 for aggressiverehabilitation. To day patient [...] Alcohol use: Not Currently Dr ug use: NeverPrior to Admission medicationsMedication Sig Start Date End Date Taking? Authorizing ProvideramLODIPine (NORVASC) 10 mg tablet 10 mg by Per G Tu be route daily. Yes Other,Phys MDescitalopram oxalate (LEXAPRO) 10 mg t ablet [...] Other, P hys, MDFLUTICASONE PROPIONATE IN 1 [place] by Nasal route two (2) times a [...] )hours as needed for Pain. Yes Other, MD AdrienNo Known AllergiesReview of Systems: [ x] Unable [...] time o f this examination; BIBA from [facility] for resfailure Pt has trach collar [...] y.o. male who is transfer red from [facility] for acuterespiratory distress.Active Problems: Septic shock (HCC) (03/13/2020)-ICU-CXR: mild left basilar atx vs infiltrate -(+) Ua-multiple negat idalmis test for Covid 19 in [facility], repeat one in ER.-septic shock bundle-s/p 3 L Nacl, c/ w ivf,-Levophed started in ER-f/u ehe-licmfjc-m/u lactic acid-IV vancomyci n and zosyn-ID consultAcute [...] andimportance of outpatient medical followup was discussed. Chiquita Velazquez, MDMay 20191:34 PM Name Value Range Interpretation Code Description Data Annabelle rce(s) Supporting Document(s ) ID Date Data Source [id number] 03/14/2020 03:01:29 PM EDT [facility] TRANSFER - OUT REPORT:Verbal report give n to ebony(name) on [facility] prog ression of careReport consisted of patient's Situation, Background, Assessment andReirais whittdajeana(SBAR).Information from the following report(s) SBAR, Kardex, Intake [...] Type Transparent 03/13/2020 8:00 PMHub Color/Line Status [place] 020 8:00 PMAlcohol Cap Used Yes 03/13/2020 8:00 PMOpportunity for questions and cla rification was provided.Patient transported with: MonitorO2 @ 50 litersRegistered Nu rseTech Name Value Range Interpretation Code Description Data Annabelle rce(s) Supporting Document(s ) ID Date Data Source [id number] 03/14/2020 10:37:28 AM EDT [facility] Infectious Disease ConsultToday's Date: 03/14/2020Admit Date: 03/13/2020Subjective:Date of Consultation: March 14, 2020Referring Physician: Dr. Fermin is a 75 y.o. male who is being seen for sepsis. This is a 39-cqwj-vsrnbvytwrdv who is had a past medical history consistent with anxiety, aphasia,CAD, hypertension, pneumonia, respiratory failure and status post trac heostomyand PEG placement.Presented from [facility] after he was noted wi th respiratory distress.[facility] and [facility] with mucus plugging. Subsequently a tracheostomy and PEG was placed on December and thereafter he wastra nsferred to [facility] and subsequently to [facility].Or yesterday emmy roldan presented to the hospital [...] Other, P hys, MDFLUTICASONE PROPIONATE IN 1 [place] by Nasal route two (2) times a [...] Component Value Units Date/Time Blood Culture [[id number]] (Abnormal) Collected: 03/13/20 1040 Order Status: Completed Specimen: Bloo d Updated: 03/14/20 0854 Special Requests: NO SPECIAL REQUESTS GRAM STAIN GRAM NE GATIVE RODS ON ANAEROBIC BOTTLE CALLED TO AND READ BACK BY LIGIA BARRONRN,CCU ,03/13/20 @ 2020 S KVNG AEROBIC BOTTLE GRAM NEGATIVE RODS Culture result: GRA M NEGATIVE RODS IDENTIFICATION AND SUSCEPTIBILITY TO FOLLOW Blood Culture [ [id number]] (Abnormal) Collected: 03/13/20 1020 Order Status: Completed Specimen: Blood Updated: 03/14/20 0852 Special Requests: NO SPECIAL REQUESTS GRAM STAI N GRAM NEGATIVE RODS on AEROBIC AND ANAEROBIC BOTTLES CALLED TO AND READ BA CK BY LIGIA BARRON RN,CCU,03/13/20 @ 2020 S KVNG Culture result: GRAM NEGATIV E RODS IDENTIFICATION AND SUSCEPTIBILITY TO FOLLOW CULTURE, BLOOD [[id number]] [facility] roby: 03/13/202099 Order Status: Completed Specimen: Blood Updated: 03/14/20 0553 Special Requests: NO SPECIAL REQUESTS Culture result: NO GROWTH AFTER 8 HOURS CULTURE, BLOOD [[id number]] Collected: 03/13/202111 Order Status: Completed S pecimen: Blood Updated: 03/14/20 0553 Special Requests: NO SPECIAL REQUESTS C ulture result: NO GROWTH AFTER 8 HOURS PRE-SURGICAL COVID PCR [[id number]] [facility] cted: 03/13/20 1315 Order Status: Completed Specimen: Miscellaneous sample Updated: 03/13/202035 SARS-CoV-2 Not detected Comment: Testing Performed by:[id number] [address] [place], [place] [address]XTK REPORT FROM REFERENCE LAB CULTURE, RESPIRATORY/ SPUTUM/BRONCH W GRAM STAIN [[id number]] Order Status: Sent Specimen: Sputum from Tra nstracheal Aspirate COVID-19, CONCRETE BUSTER OPERATOR [[id number]] Collected: 03/13/20 1315 Order Status: Canceled CULTURE, URINE [[id number]] Collected: 03/13/20 1050 Order Status: Completed Specimen: Cath Urine Updated: 03/13/20 1223Imaging:Ct Head Wo ContResu lt Date: 03/13/2020CT HEAD WO CONT Clinical data: AMS Priors: None. Technique: Multi ple axialimages were obtained from the skullbase to the vertex without administ ration ofintravenous contrast. Sagittal and coronal reconstruction was performed.Uti GoodAppetitoing car ferry master algorithm the examination was performed to optimizeimaging [...] time o f this examination; BIBA from [facility] for resfailure Pt has trach collar [...] without an intraluminal thrombus. 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 Status post admission to [facility] on 01/31-> 03/12--> [facility] --> [facility] 03/13 secondary to lethargy, respiratory distress, fever andhypotension-Cultures at [facility] showing G NR 4/4 bottles, ID to follow-Patient has reportedly been [...] 5 PRVC-DVT and SUP prophy-Will update Flory [phone]:Remains on Levophed, but decreasing pressor requirements. 4[facility]:Diagnosis Date Anxiety Aphasia Atrial fibrillation [...] by Per G Tube route daily.Yes Other, PhysMDfamo tidine (PEPCID) 20 mg tablet 20 mg [...] two(2) times a day. Ye s Other, MD AdrienFLUTICASONE PROPIONATE IN 1 [place] by Nasal route two (2) times a day . YesOther, Phys, MICHAELLPRAZolam (XANAX) 0.25 mg tablet 0.25 mg by Per G Tube route ev malachi eight (8)hours as needed for Anxiety. Yes Other, Adrien MDtraMADoL (ULTRAM) 50 mg tablet 50 mg by Per G Tube route every six (6) hours asneeded for Pain. Yes Other , PhysMichaelcetaminophen (TYLENOL) 325 mg tablet 650 mg by [...] Calculation (Bezet) 503 ms Calculate d P [place] 107 degrees Calculated R [place] 94 degrees Calculated T [place] -29 degrees Di agnosis Age not entered, [...] BY LIGIA BARRON RN,CCU,03/13/20 @ 2020 S ALYSON Daily GRAM STAIN AEROBIC BOTTLE GRAM NEGATIVE [...] vo lume 500 RATE 14 Performed by [id number] COVID PCR Collection T carrie: 03/13/20 1:15 [...] Supporting Document(s ) ID Date Data Source [id number] 03/14/2020 09:44:43 AM EDT [facility] Arina Leiva called to report positive bl ood cultures in all 4 bottles that wasdone at their facility that blood is growing gra m negative zayda . Dr Zeina combsready aware and blood cultures were repeated. Name Value Range Interpretation Code Description Data Annabelle rce(s) Supporting Document(s ) ID Date Data Source [id number] 03/15/2020 11:17:47 AM EDT [facility] Name Value Range Interpretation Description Data Sup porting Code Source(s) Document(s ) Legionella [facility] pneumophila Ag [facility] [Presence] in Hospital Urine by Immunoassay PRESUMPTIVE NEGATIVE forL.pneumophila Se rogroup 1Antigen in urine,suggestingno recent or current infection.Infection due to Le gionellacannot be ruled out since otherserogroups and species may causedis ease,antigen may not bepresent in urine in earlyinfection, and the level ofantigen present in the urinemay be below the detectionlimit of the test. Service comment [facility] ID Date Data Source [id number] 03/14/2020 08:12:20 AM EDT [facility] The patient's Clinical Indicators includ e:Documentation noted, "Acute respiratory distress...O2 saturations werereportedly in the high 80s."RR in ER 33.Treatment: vent managementRisk factors: respiratory fail ure>> Acute on chronic respiratory failure>> Other>> Unable to determine>> Unknown Name Value Range Interpretation Code Description Data Annabelle rce(s) Supporting Document(s ) ID Date Data Source [id number] 03/14/2020 07:57:02 AM EDT [facility] CHEST one viewHISTORY: Followup lung pat hology.Comparison is made to 03/13/2020.Accounting for differences in technique ( ) there has been no significant changeof a lower lobe atelectasis. Ferris valerie there appears to be an increase of aninfiltrate in the right midlung or low er lung field. No other interval change isnoted. Name Value Range Interpretation Code Description Data [facility] rce(s) Supporting Document(s ) IMP IMPRESSION: [facility] Increase of [facility]ianist right midlung Hospital or lower lung field field infiltrate. Signing date/time: 03/14/2020 7:57 AMSi gned by: ALEX MUNOZ ID Date Data Source [id number] 03/14/2020 07:23:52 AM EDT [facility] Bedside and Verbal shift change report ashley Barrera RN (oncoming nurse) Caterina Berger RN (offgoing nurse). Report in cluded the following information SBAR,Intake/Output, MAR, Recent Results and Med Rec Status. Name Value Range Interpretation Code Description Data Annabelle rce(s) Supporting Document(s ) ID Date Data Source [id number] 03/14/2020 05:54:53 AM EDT [facility] Patient continues to be very restless, u ncomfortable, respirations in the 30s.Dr. Curiel informed. Orders received for Ativ an 1mg IV x 1 dose. Name Value Range Interpretation Code Description Data Annabelle rce(s) Supporting Document(s ) ID Date Data Source [id number] 03/14/2020 05:51:10 AM EDT [facility] Patient is awake, very restless, and unc omfortable, not following commands,respirations 28, bucking the ve nt. Dr. Curiel informed. Orders received for Xanax0.25 PO via peg x 1 dose. Name Value Range Interpretation Code Description Data Annabelle rce(s) Supporting Document(s ) ID Date Data Source [id number] 03/14/2020 08:54:36 AM [facility] Name Value Range Interpretation Description Data Sup porting Code Source(s) Document(s ) Leukocytes 27.3 4.8-10.6 Above high normal [facility] - [#/volume] in K/uL Good Blood by [facility] Erythrocytes 2.93 4.70-6.0 Below low normal [facility] - [#/volume] in M/uL 0 Good Blood by [facility] Hemoglobin 8.5 g/dL 14.0-18. Below low normal [facility] - [Mass/volume] in 0 Good Blood [facility] Hematocrit 27.6 % 42.0-52. Below low normal [facility] - [Volume 0 Good Fraction] of [facility]ist Blood by Hospital Automated count Erythrocyte mean 94.2 FL 81.0-94. Above high normal [facility] - corpuscular 0 Good volume [Entitic [facility]ist volume] by Hospital Automated count Erythrocyte mean 29.0 PG 27.0-35. [facility] - corpuscular 0 Good hemoglobin [facility] [Entitic mass] Hospital by Automated count Erythrocyte mean 30.8 30.7-37. [facility] - corpuscular g/dL 3 Good hemoglobin Sabianist concentration [facility] [Mass/volume] by Automated count Erythrocyte 17.8 % 11.5-14. Above high normal [facility] - distribution 0 Good width [Ratio] by [facility] Platelets 164 K/uL 130-400 [facility] - [#/volume] in Good Blood by [facility] Platelet mean 12.5 FL 9.2-11.8 Above high normal [facility] - volume [Entitic Good volume] in Blood [facility] Automated Hospital count Nucleated 0.0 PER 0 [facility] - erythrocytes/100 100 WBC Good leukocytes [facility] [Ratio] in Blood Hospital Nucleated 0.00 0.0-0.01 [facility] - erythrocytes K/uL Good [#/volume] in [facility] Segmented 82 % 48.0-72. Above high normal [facility] - neutrophils/100 0 Good leukocytes in [facility] Band form 14 % 0 Above high normal [facility] - neutrophils/100 Good leukocytes in [facility] Blood by Manual Hospital count Lymphocytes/100 1 % 18.0-40. Below low normal [facility] - leukocytes in 0 [facility] Monocytes/100 0 % 2.0-12.0 Below low normal [facility] - leukocytes in [facility] Eosinophils/100 0 % 0.0-7.0 [facility] - leukocytes in [facility] Basophils/100 0 % 0.0-3.0 [facility] - leukocytes in [facility] Metamyelocytes/1 2 % 0 Above high normal [facility] - 00 leukocytes in [facility] Blood by Manual [facility] count Hospital Myelocytes/100 1 % 0 Above high normal [facility] - leukocytes in [facility] Blood by Manual [facility] count Hospital Immature 0 % [facility] - granulocytes/100 Good leukocytes in [facility] by Hospital Automated count Segmented 27.0 2.3-7.6 Above high normal [facility] - neutrophils K/UL Good [#/volume] in [facility] Lymphocytes 0.3 K/UL 0.9-4.2 Below low normal [facility] - [#/volume] in [facility] Monocytes 0.0 K/UL 0.1-1.7 Below low normal [facility] - [#/volume] in [facility] Eosinophils 0.0 K/UL 0.0-1.0 [facility] - [#/volume] in [facility] Basophils 0.0 K/UL [facility] - [#/volume] in [facility] Immature 0.0 K/UL [facility] - granulocytes Good [#/volume] in [facility] by Hospital Automated count 2+ANISOCYTOSIS Platelet adequacy [Presence] in Blood by [facility] - [facility] Light microscopy Differential cell count method - Blood [facility] - Good [facility] ID Date Data Source [id number] 03/14/2020 05:32:06 AM EDT [facility] - Good [facility] Name Value Range Interpretation Description Data Sup porting Code Source(s) Document(s ) Lactate 4.2 0.4-2.0 Above upper panic [facility] - Good [Moles/volu MMOL/L [facility]] in Hospital Serum or Plasma CALLED TO AND READ BACK BYMICHAEL 0528 03/01 02/18 [place] ID Date Data Source [id number] 03/14/2020 05:11:06 AM EDT [facility] - Good [facility] Name Value Range Interpretation Description Data Sup porting Code Source(s) Document(s ) Sodium 140 136-145 [facility] - [Moles/volume] in mmol/L [facility] Serum or Plasma [facility] Potassium 3.9 3.5-5.1 [facility] - [Moles/volume] in mmol/L [facility] Serum or Plasma [facility] Chloride 109 98-107 Above high [facility] - [Moles/volume] in mmol/L normal [facility] Serum or Plasma [facility] Carbon dioxide, 22 21-32 [facility] - total mmol/L Good [Moles/volume] in [facility] Serum or Plasma [facility] Anion gap in Serum 12 10-20 [facility] - or Plasma mmol/L [facility] Glucose 89 74-106 [facility] - [Mass/volume] in mg/dL [facility] Serum or Plasma [facility] Urea nitrogen 41 7-18 Above high [facility] - [Mass/volume] in mg/dL normal [facility] Serum or Plasma [facility] Creatinine 1.78 0.70-1. Above high [facility] - [Mass/volume] in mg/dL 30 normal [facility] Serum or Plasma [facility] Glomerular 48 >60 Below low normal [facility] - filtration ml/min/ Good rate/1.73 sq M 1.73m2 [facility] predicted among Hospital blacks [Volume Rate/Area] in Serum or Plasma by Creatinine-based formula (MDRD) Glomerular 40 >60 Below low normal [facility] - filtration ml/min/ Good rate/1.73 sq M 1.73m2 [facility] predicted among Hospital non-blacks [Volume Rate/Area] in Serum or Plasma by Creatinine-based formula (MDRD) Calcium 7.3 8.5-10. Below low normal [facility] - [Mass/volume] in mg/dL 1 Good Serum or Plasma [facility] Bilirubin.total 0.5 0.2-1.0 [facility] - [Mass/volume] in mg/dL Good Serum or Plasma [facility] Alanine 18 U/L 13-61 [facility] - aminotransferase Good [Enzymatic [facility] activity/volume] in Hospital Serum or Plasma Aspartate 104 U/L 15-37 Above high [facility] - aminotransferase normal Good [Enzymatic [facility] activity/volume] in Hospital Serum or Plasma by With P-5'-P Alkaline 61 U/L 45-117 [facility] - phosphatase Good [Enzymatic [facility] activity/volume] in Hospital Serum or Plasma Protein 6.2 6.4-8.2 Below low normal [facility] - [Mass/volume] in g/dL Good Serum or Plasma [facility] Albumin 2.1 3.5-4.7 Below low normal [facility] - [Mass/volume] in g/dL Good Serum or Plasma by [facility] Bromocresol [facility] (BCP) dye binding method Globulin 4.1 1.7-4.7 [facility] - [Mass/volume] in g/dL Good Serum by [facility] Albumin/Globulin 0.5 0.7-2.8 Below low normal [facility] - [Mass Ratio] in Good Serum or Plasma [facility] ID Date Data Source [id number] 03/14/2020 07:10:15 AM EDT [facility] Name Value Range Interpretation Description Data Sup porting Code Source(s) Document(s ) Specimen [facility] - Good expiration 0 [facility] ABO and Rh [facility] - Good group [Type] [facility] in [facility] Blood group [facility] - Good antibodies [facility] identified in Hospital Serum or Plasma ID Date Data Source [id number] 03/13/2020 09:20:45 PM EDT [facility] Patient has pink tinged urine from kelly , and slight oozing from right groinTLC. Dr. Curiel made aware. Orders received to erlin gautam's lovenox dose. Name Value Range Interpretation Code Description Data Annabelle rce(s) Supporting Document(s ) ID Date Data Source [id number] 03/13/2020 09:19:07 PM EDT [facility] Pt has positive blood cultures gram nega tive rods. Dr. Pastrana made aware.Orders received for repeat blood cultures x 2. Name Value Range Interpretation Code Description Data [facility] rce(s) Supporting Document(s ) ID Date Data Source [id number] 03/15/2020 06:26:08 AM EDT [facility] Name Value Range Interpretation Code Description Data [facility] rce(s) Supporting Document(s ) Service [facility] ANAEROBIC BOTTLEGRAM NEGATIVE RODSCALLED TO AND READ BACK BYJOSUÉ BORJA RN 1032 03/14/2020 D. SANTOSKLEBSIELLA PNEU MONIAE: Refer to previous culture(s) for susceptibility results ID Date Data Source [id number] 03/15/2020 06:23:37 AM EDT [facility] Name Value Range Interpretation Code Description Data [facility] ) Service [facility] AEROBIC BOTTLEGRAM NEGATIVE RODSCALLED T O AND READ BACK BYJOSUÉ BORJA RB 1034 03/14/2020 D. SANTOSKLEBSIELLA PNEUMONIA E: Refer to previous culture(s) for susceptibility results ID Date Data Source [id number] 03/13/2020 07:59:33 PM EDT [facility] Dr. Pastrana called and updated on pt. Name Value Range Interpretation Code Description Data [facility] Supporting Document(s ) ID Date Data Source [id number] 03/13/2020 07:49:26 PM EDT [facility] Bedside and Verbal shift change report g francis to shruti (oncoming nurse) byjosué (offgoing nurse). Report included the fo llowing information Kardex,Intake/Output and MAR. Name Value Range Interpretation Code Description Data [facility] rce(s) Supporting Document(s ) ID Date Data Source [id number] 03/13/2020 06:31:33 PM EDT [facility] The history is provided by the EMS perso nnel.10:23 AM: Carlyle Pate is a 75 y.o. male with history of stroke, aphasia wit hright sided paralysis, trach dependency, and thyroid cancer [facility]. Per EMS report, thepatient's Sp O2 dropped to the 80s. EMS note [facility] and report they sedated [...] file Gets together: Not on file Attends hinduism service: Not on file Active m ember [...] by: Dakota Ortega, MDAuthorized by: Mike Ortega [facility] TULSAonsent: Consent obtained: Emergent situationUniversal protocol: Immediately prior [...] QTC Calculation (Bezet) 503 ms Calculated P Madison 107 deg augustine Calculated R Madison 94 degrees Calculated T Madison -29 degrees Diagnosis Age not en tered, [...] vo lume 500 RATE 14 Performed by [id number] ACID Collection Time: 03/13/20 3:35 PMR esult Value Ref Range Lactic acid 7.5 (HH) 0.4 - 2.0 MMOL/LEK:30 AM Sinus tach ycardia at 101 BPM, LVH, ST depression in A3Iijryoohdli by Mike Ortega MDRadiolo gy:CXR Results (Last 48 hours) 03/13/20 1118 XR CHEST PORT Final result Impression: IMPRESSION:1. Mild increased interstitial margins bilaterally consistent with infi ltrates.2. Small left effusion.3. Upper limits of normal to mild cardiac enlarge ment. Narrative: XR CHEST PORTABLE-SINGLE VIEWPRIOR: NoneHISTORY: Limited to that provided by the emergency department at the time ofthis examination; BIBA from [facility] for res failurePt has trach collar [...] Tube route daily. Yes Other,Adrien MDescitalopram oxalate (LEXAPRO) 10 mg tablet 10 mg by Per G Tube route daily.Yes Other, Phys MDfamo tidine (PEPCID) 20 mg tablet 20 mg by Per G Tube route two (2) times a day.Yes Other , Phys, MDgabapentin (NEURONTIN) 100 mg capsule 100 [...] s Other, Phys, MDFLUTICASONE PROPIONATE IN 1 [place] by Nasal route two (2) times a [...] Name Value Range Interpretation Code Description Data [facility] rce(s) Supporting Document(s ) ID Date Data Source [id number] 03/13/2020 05:25:36 PM EDT [facility] Received patient with a tracheostomy con nected to ventilator, able to move toleft arm . peg clamped, kelly present draining b lood tinged urine.SB/P in the80' Dr Gramajo order to start fluid And levophed resta rted. Patient 's wascalled information received . Name Value Range Interpretation Code Description Data [facility] rce(s) Supporting Document(s ) ID Date Data Source [id number] 03/13/2020 05:10:07 PM EDT [facility] DUPLEX UPPER EXT VENOUS RIGHTClinical in dication: [...] Name Value Range Interpretation Code Description Data [facility] rce(s) Supporting Document(s ) ID Date Data Source [id number] 03/13/2020 04:04:08 PM EDT [facility] Care Management InterventionsPCP Verifie d by CM: Yes(Dr. Prajapati)Palliative Care Criteria Met (RRAT>21 & CHF Dx)?: NoTran sition of Care Consult (CM Consult): Discharge PlanningMyChart Signup: NoDisc harponcho Durable Medical Equipment: NoPhysical Therapy Consult: NoOccupational Therapy Consult: NoSpeech Therapy Consult: NoCurrent Support Network: Other(From [facility] Acute re hab)Confirm Follow Up Transport: Other (see comment)(ambulance)The Patient and/or Pa tient Hassock Maker was Provided with a Choice of Providerand Agrees with the Andrea sosarponcho Plan?: YesName of the Patient Hassock Maker Who was Provided with a C hoice of Providerand Agrees with the Discharge Plan: patient Jennifer om of Choice List was Provided with Basic Dialogue that Supports thePatient's Caren vidualized Plan of Care/Goals, Treatment Preferences and Sharesthe Quality Data A ssociated with the Providers?: YesVeteran Resource Information Provided?: RefusedD ischarge LocationDischarge Placement: Rehab hospital/unit acute([facility])CASE MANAGEMENT PSYCHOSOCIAL ASSESSMENTCarlyle Pate Admission Date: 03/13/2020MRN: [id number] of : 1945urrent date: 03/13/2020DISCHAR GE PLAN: Call placed to pt's Flory [phone] to discussdischarge dee dee ramirez. Pt was admitted from ACUTE rehab at [facility]. Pt's confirmedall information on fa ce sheet and confirmed that she is emergency contact.Discussed code status with who wishes for pt to remain a full code. Wifereports "give him CPR but that's it" . Pt's reports pt has a HCP and otheradvance directives and will speak w ana RN about providing for hospital. Ptadmitted to [facility] after LTACH course at [place]. [facility] when medically stable.Spoke with [facility] liaison Maryse who confirmed pt is from ACUTE rehab at [facility] underthe care of Dr. Edison Prajapati MD to MD must be completed with Dr. Prajapati [phone] prior to discharge. [facility] CCLINKED.Patient Information:Patient Obj ects to Receiving Blood: UnknownPCP: Edison Prajapati, MDAdmitting Prov ider: Chiquita Velazquez [facility] IN[facility]OMEC[facility] ROLLOFF TRUCK DRIVER: NAPayor: [place] / [place]/ Product Type: Medicare /Secondary Payor: @SECINSGROUPNAME@Septic shock (HCC) [A41 .9, R65.21]Patient Active Problem ListDiagnosis Code Septic shock (HCC) A 41.9, R65.21Social HistorySubstance and Sexual ActivityAlcohol Use Not Currently Number of stairs into patient home:DME:Cohabitants:Abuse Screen:INSURA NCE INFORMATION: (Verification)Primary Notes: MCRSecondary Notes: [facility]ITALWorkmen's Comp Notes:No-Fault Notes:SSD Notes:Un-Insured Notes:[facility] If Applicable Notes:Current Functioning:Language barriers: Notes:Und erstanding nature/impact of illness: Notes:Ability to participate in plan: No robert:Realistic Problem solving and planning: Notes:Adequate coping skills: Notes:Reli gious/Cultural barriers: Notes:If unable to assess or not applicable: Notes:Suicide Assessment:Readmit Risk:Advanced Care Planning: Name Value Range Interpretation Code Description Data Annabelle rce(s) Supporting Document(s ) ID Date Data Source [id number] 03/13/2020 04:33:36 PM EDT [facility] Name Value Range Interpretation Description Data Sup porting Code Source(s) Document(s ) Lactate 7.5 0.4-2.0 Above upper panic [facility] [Moles/volu MMOL/L limits [facility]] in Hospital Serum or Plasma CALLED TO AND READ BACK ADIA Daily 1628 03/13/20 TAHIR ID Date Data Source [id number] 03/13/2020 03:14:16 PM EDT [facility] Pulmonary Initial Patient ConsultName: Jesse Pate : 1945 [facility] IMPRESSION/GMEQ80-[id number] male with a history of reported atrial fibrillatio 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 Status post admission to [facility] on 01/31-> 03/12--> H --> GSH secondary to lethargy, respiratory distress, [...] and SUP prophyDiscussed with Flory (prnounced Fish-Hay) [phone]:This patient has been seen and evaluated at the request of Dr. Velazquez for respiratory failure and septic shock. History is obtained primarily from the art. Patient is a 75 y.o. male with a reported history of head neck cancerstat us post radiation many years ago with subglottic stenosis, atrialfibrillation status post recent admission to [facility] in Decembersecondary to 15 mL left basal ganglia hemorrhage complicated by respiratoryfailure secondary to mucous p lugging and pneumonia. Patient underwenttracheostomy and PEG insertion on January 16. Most recent CT of the head on revealed evolving hemorrhage. P atient subsequently transferred to [facility] on 01/31 for vent weaning. Patient subsequently transferred to [facility] on 03/12 for aggressi ve rehabilitation. [facility] today secondary tohypoxemia, tachypnea and lethargy. O2 saturations were reportedly in the obtl94m. Tracheostomy was changed to a Shiley #6 [...] mg by PEG Tube route. Yes Other, Phys MDergocalciferol (Vitamin D 2) 1,250 mcg (50,000 [...] Yes Other, Phys MDFLUTICASONE PROPIONATE IN 1 [place] by N marci route two (2) times a day. YesOther, Phys, MDALPRAZolam (XANAX) 0.25 mg table t 0.25 mg by Per G Tube route every eight (8)hours as needed for Anxiety. Yes Ot her, Phys MDtraMADoL (ULTRAM) 50 mg tablet 50 mg [...] (MBP/ADV) 100mL MBP 3.3 75 g IntraVENous S1TTpugme of Systems:n/aObjective:Vital Signs:Visit V italsBP (!) 53/31Pulse [...] C alculation (Bezet) 503 ms Calculated P Madison 107 degrees Calculated R Madison 94 degrees Calculated T Madison -29 degrees Diagnosis Age not entered, assumed [...] volume 500 RAT E 14 Performed by [id number]:I have personally reviewed the patient's radiog raphs [...] 36N*ENCOUNTER 03/13/2020 02:39:44 PM EDT [facility] [id number] [facility] [address] [place] [address] [phone]/ Carlyle Pate (Male) [id number] [place] 2 ED Dispo:ADMIT Chief Complaint: Respiratory Distress Diagnosis: Fever, unspecified fever cause [] At risk for sepsis [] Current P roviders: Attending: Jennyfer Ortega Y Consulting Provider: Christen Lares Nurse: Emilia Roland H Tech: GEMA BaroneN: [id number] [facility] t Group [id number] - [facility] Ed Medva MrnMRN: [id number] Print Group [id number] - [facility] Age SexDOB 1945 AGE 75 SEX Male Primary Care Provider: Edison Prajapati MD Phone: Mllergies: (No Known Allergies)Date Reviewed: 03/13/2020Reviewed by: Sharlene Roland - Review Marcial D Provider Notes: No notes of this type exist for this encounter.ED Orders IVT11 SALINE LOCK IV [#[id number]] Priority: STAT Class: Hospital Performed Standing Order Information Remain ing Occurrences:0/1 Interval:ONE TIME Last released:03/13/2020 Released orders : WedMarch 13, 2020 10:32 AM by: MIKE ORTEGA [id number] SALINE LOCK IV [#[id number]] Priority: STAT Class: Hospital Performed Released on: 03/13/2020 10:32 AM SODIUM CHL ORIDE 0.9 % IV [#[id number]] Priority: STAT Class: Normal PIPERACILLIN-TAZOBACTAM 4.5 GR AM IVP* [#[id number]] Priority: STAT Class: Normal Antibiotic Indications -> Pneumonia (HAP) AMLODIPINE 10 MG TAB [#[id number]] Priority: Routine Class: Historical Med ESCITALO PRAM 10 MG TAB [#[id number]] Priority: Routine Class: Historical Med ACETAMINOPHEN 3 25 MG TABLET [#[id number]] Priority: STAT Class: Normal SODIUM CHLORIDE 0.9% BOLUS IV [#[id number]] Priority: STAT Class: Normal VANCOMYCIN 1 GRAM IVPB ADD-VANTAGE [#[id number]] Priority: STAT Class: Normal Antibiotic Indications -> Sepsis of Unknown Etiology FAMOTIDINE 20 MG TAB [#[id number]] Priority: Routine Class: Historical Med GABAPENTIN 100 MG CAP [#[id number]] Priority: Routine Class: Historical Med LEVOTHYROXINE 2 00 MCG TAB [#[id number]] Priority: Routine Class: Historical Med MELATONIN 5 MG CAP [#[id number]] Priority: Routine Class: Historical Med SENNOSIDES 17.2 MG TABLET [#[id number]] Priority: Routine Class: Historical Med LOSARTAN 100 MG TAB [#[id number]] Priority: Routine Class: Historical Med DOXAZOSIN 1 MG TAB [#[id number]] Priority: Routine Class: Historical Med ASCORBIC ACID 5 00 MG TAB [#[id number]] Priority: Routine Class: Historical Med CHLORHEXIDINE G LUCONATE 0.12 % MOUTH* [#[id number]] Priority: Routine Class: Historical Med DOCUSATE SODIUM 100 MG CAP [#[id number]] Priority: Routine Class: Historical Med DOCUSATE SODIUM -BENZOCAINE RE [#[id number]] Priority: Routine Class: Historical Med MULTIVITAMIN TA B [#[id number]] Priority: Routine Class: Historical Med NYSTATIN 100,00 0 UNIT/G TOPICAL CREAM [#[id number]] Priority: Routine Class: Historical Med POLYETHYLENE GL YCOL 3350 17 GRAM (10* [#[id number]] Priority: Routine Class: Historical Med SENNA [#[id number]] Priority: Routine Class: Historical Med ERGOCALCIFEROL (VITAMIN D2) 50,000 U* [#[id number]] Priority: Routine Class: Historical Med ALBUTEROL IN [#[id number]] Priority: Routine Class: Historical Med ASPIRIN 325 MG TAB [#[id number]] Priority: Routine Class: Historical Med ATORVASTATIN 40 MG TAB [#[id number]] Priority: Routine Class: Historical Med BISACODYL 5 MG TABLET [#[id number]] Priority: Routine Class: Historical Med ENOXAPARIN 40 M G/0.4 ML SUB-Q SYRINGE [#[id number]] Priority: Routine Class: Historical Med POTASSIUM BICAR BONATE-CITRIC ACID 20* [#[id number]] Priority: Routine Class: Historical Med FLUTICASONE PRO PIONATE IN [#[id number]] Priority: Routine Class: Historical Med ALPRAZOLAM 0.25 MG TAB [#[id number]] Priority: Routine Class: Historical Med TRAMADOL 50 MG TAB [#[id number]] Priority: Routine Class: Historical Med ACETAMINOPHEN 3 25 MG TABLET [#[id number]] Priority: Routine Class: Historical Med NOREPINEPHRINE BITARTRATE 1 MG/ML IV [#[id number]] Priority: STAT Class: Normal NOREPINEPHRINE 8 MG/250 ML INFUSION [#[id number]] Priority: STAT Class: Normal Titrate Infusion? -> Yes Initial Infusion Rate: -> 0. 5 mcg/min Titrate Every 2-5 Minutes In Increments of: -> 1 mcg/min Goal of Therapy is: -> MAP greater th an 65 mmHg Contact Physician for: - > Patient is not achieving goal and is at max rate SODIUM CHLORIDE 0.9 % IV [#[id number]] Priority: STAT Class: Normal NOREPINEPHRINE 8 MG/250 ML INFUSION [#[id number]] Priority: STAT Class: Normal Titrate Infusion? -> Yes Initial Infusion Rate: -> Other Other (mcg/min): -> 8mcg/min Titrate Every 2-5 Minutes In Increments of: -> 2 mcg/min Goal of Therapy is: -> MAP greater than 65 mmHg Contact Physician for: -> Patient is not achieving goal and is at max rate SODIUM CHLORIDE 0.9 % I J SYRG [#[id number]] Priority: STAT Class: Normal ACETAMINOPHEN 650 MG RECTAL SUPPOSIT* [# [id number]] Priority: STAT Class: Normal ONDANSETRON IVPB [#[id number]] Priori ty: STAT Class: Normal ONDANSETRON (PF) 4 MG/2 ML INJECTION [#[id number]] Priority: STAT Class: N ormal VANCOMYCIN IVPB < 1.5 GM [#[id number]] Priority: STAT Class: Normal Antib iotic Indications -> Sepsis of Unknown Etiology PIPERACILLIN-TAZOBACTAM 3.375 GRAM I* [# [id number]] Priority: STAT Class: Normal Antibiotic Indications -> Sepsis of Unknown Etiology [id number] METABOLIC PANEL, COMPREHENSIVE [#[id number]] Priority: STAT Class: ER Collect Standing Order Info rmation Remaining Occurrences:0/1 Interval:ONE TIME Last released:03/13/2020 Released o rders: WedMarch 13, 2020 10:32 AM by: MIKE ORTEGA [id number] LIPASE [# [id number]] Priority: STAT Class: ER Collect Standing Order Information Remaining Occurrences:0 /1 Interval:ONE TIME Last released:03/13/2020 Released orders: WedMarch 13, 2020 10:32 AM by: MIKE ORTEGA [id number] CBC WITH AUTOMATED DIFF [#[id number]] Priority: STAT Clas s: ER Collect Standing Order Information Remaining Occurrences:0/1 Interval:ONE TI ME Last released:03/13/2020 Released orders: WedMarch 13, 2020 10:32 AM by: MIKE ORTEGA [id number] PROTHROMBIN TIME + INR [#[id number]] Priority: STAT Class: ER Collect Standing Orde r Information Remaining Occurrences:0/1 Interval:ONE TIME Last released:03/13/2020 Relea sed orders: WedMarch 13, 2020 10:32 AM by: MIKE ORTEGA [id number] PTT [ #[id number]] Priority: STAT Class: ER Collect Specimen Source: Blood Standing Order Information Remain ing Occurrences:0/1 Interval:ONE TIME Last released:03/13/2020 Released orders : WedMarch 13, 2020 10:32 AM by: MIKE ORTEGA [id number] TROPONIN I [#[id number] ] Priority: STAT Class: ER Collect Standing Order Information Remaining Occurrences:0/1 Inter douglas:ONE TIME Last released:03/13/2020 Released orders: WedMarch 13, 2020 10:32 AM by: RITO ORTEGA [id number] URINALYSIS W/ RFLX MICROSCOPIC [#[id number]] Priority: STAT Class: ER Collect Sta nding Order Information Remaining Occurrences:0/1 Interval:ONE TIME Last released:0 03/13/2020 Released orders: WedMarch 13, 2020 10:32 AM by: MIKE ORTEGA [id number] LACTIC ACID [#[id number]] Priority: STAT Class: ER Collect Standing Order Information Remainin g Occurrences:0/1 Interval:ONE TIME Last released:03/13/2020 Released orders : WedMarch 13, 2020 10:32 AM by: MIKE ORTEGA [id number] METABOLIC PANEL, COMPREHENSIVE [# [id number]] Priority: STAT Class: ER Collect Specimen Source: Plasma Specimen Collected: 03/13/2020 10:40 AM Resulting Agency: [facility] Test ID: MPL Released on: 03/13/2020 10:32 AM [id number] 3 LIPASE [#[id number]] Priority: STAT Class: ER Collect Specimen Source: Plas ma Specimen Collected: 03/13/2020 10:40 AM Resulting Agency: [facility] Test ID: HLPSE Released on: 03/13/2020 10:32 AM [id number] CBC WITH AUTOMATED DIFF [#[id number]] Prior ity: STAT Class: ER Collect Specimen Source: Whole Blood Specimen Collected: 03/13/2020 10:40 AM Resultin g Agency: [facility] Test ID: CBCXA Released on: 03/13/2020 10:32 AM [id number] PROTHR OMBIN TIME + INR [#[id number]] Priority: STAT Class: ER Collect Specimen Source: Plasma Specim en Collected: 03/13/2020 10:40 AM Resulting Agency: [facility] Test ID: APTHR R eleased on: 03/13/2020 10:32 AM [id number] PTT [#[id number]] Priority: STAT Cl ass: ER Collect Specimen Source: Plasma Specimen Collected: 03/13/2020 10:40 AM Resulting Agency: [facility] Test ID: APTT Released on: 03/13/2020 10:32 AM [id number] TROPONIN I [#[id number]] Priority: STAT Class: ER Collect Specimen Source: Plasma Specimen Collected: 03/01 10:40 AM Resulting Agency: [facility] Test ID: TROIP Released on: 0 10:32 AM [id number] URINALYSIS W/ RFLX MICROSCOPIC [#[id number]] Priority: STAT Class: ER Collect Spec imen Source: Urine Specimen Collected: 03/13/2020 10:50 AM Resulting Agency: [facility] RY Test ID: UA Released on: 03/13/2020 10:32 AM [id number] LACTIC ACID [#[id number]] Priority: STAT Class: ER Collect Specimen Source: Plasma Specimen Collected: 03/13/2020 10:50 AM Resultin g Agency: [facility] Test ID: LAC Released on: 03/13/2020 10:32 AM [id number] URINE MICROSCOPIC [#[id number]] Priority: Routine Class: ER Collect Resulting Agency: [facility] Test ID: UMIC Standing Order Information Remaining Occurrences:0/1 Released orders: WedMarch 13, 2020 10:50 AM by: Automatic Batch Process [id number] URINE MICROSCOPIC [#[id number]] Priority: Routine Class: ER Collect Specimen Source: Urine Specimen Collected: 03/13 10:50 AM Resulting Agency: [facility] Test ID: UMIC Released on: 03/13/2020 10:50 AM [id number] VENOUS BLOOD GAS [#[id number]] Priority: STAT Class: ER Collect Sta nding Order Information Remaining Occurrences:0/1 Interval:ONE TIME Last released:0 03/13/2020 Released orders: WedMarch 13, 2020 12:26 PM by: REBECCA REYNOSO [id number] VENOUS BLO OD GAS [#[id number]] Priority: STAT Class: ER Collect Released on: 03/13/2020 12:26 PM [id number] BLOOD GAS, VENOUS [#[id number]] Priority: Routine Class: ER Collect Re sulting Agency: [facility] Test ID: VBG Standing Order Information Remainin g Occurrences:0/1 Released orders: WedMarch 13, 2020 12:25 PM by: Automatic Batch Process [id number] BLOOD GAS, VENOUS [#[id number]] Priority: Routine Class: ER Collect Specimen Source: Veno us blood Specimen Collected: 03/13/2020 12:25 PM Resulting Agency: [facility] Test ID: VBG Released on: 03/13/2020 12:25 PM [id number] CBC WITH AUTOMATED DIFF [#[id number]] Priority: Routine Class: ER Collect Standing Order Information Remaining Occurrences:3/3 Interval:DAILY [id number] METABOLIC PANEL, COMPREHENSIVE [#[id number]] Priority: Routine Class: ER Collect Standing O rder Information Remaining Occurrences:3/3 Interval:DAILY [id number] LACTIC ACID [#[id number]] Priority: STAT Class: ER Collect Standing Order Information Remaining Occurre nces:0/1 Interval:ONE TIME Last released:03/13/2020 Released orders: WedMarch 13, 2020 1:28 PM by: CHIQUITA VELAZQUEZ [id number] LACTIC ACID [#[id number]] Priority: STAT Clas s: ER Collect Resulting Agency: [facility] Test ID: LAC Released on: 03/13/2020 1:28 PM [id number] VANCOMYCIN, TROUGH [#[id number]] Priority: Timed Class: ER Collect St anding Order Information Remaining Occurrences:1/ Interval:ONE TIME [id number] EKG, 12 LEAD , INITIAL [#[id number]] Priority: STAT Class: Hospital Performed Standing Order Information Remaining Occurrences:0/1 Interval:ONE TIME Last released:03/13/2020 Released orders : WedMarch 13, 2020 10:32 AM by: MIKE ORTEGA Reason for Exam: -> Abdominal Pain [id number] EKG, 1 2 LEAD, INITIAL [#[id number]] Priority: STAT Class: Hospital Performed Specimen Collected : 03/13/2020 10:28 AM Resulting Agency: [facility] Test ID: [id number] Reason for Exam: -> Abdominal Pain Re leased on: 03/13/2020 10:32 AM [id number] CULTURE, URINE [#[id number]] Priority: STAT Cla ss: ER Collect Specimen Source: Cath Urine Standing Order Information Remaining Occurrences:0/1 Interval:ONE TIME Last released:03/13/2020 Released orders: WedMarch 13, 2020 10:32 AM by: MIKE GAYLE Reason for Culture -> Other Other, please explain -> fever [id number] CULTURE, BLOOD [#[id number]] Priority: STAT Class: ER Collect Specimen Source: Blood Standing Order Informat ion Remaining Occurrences:0/1 Interval:ONE TIME Last released:03/13/2020 Released orders : WedMarch 13, 2020 10:32 AM by: MIKE ORTEGA [id number] CULTURE, BLOOD [#[id number] ] Priority: STAT Class: ER Collect Specimen Source: Blood Standing Order Information Remainin g Occurrences:0/1 Interval:ONE TIME Last released:03/13/2020 Released orders : WedMarch 13, 2020 10:32 AM by: MIKE ORTEGA [id number] CULTURE, URINE [#[id number] ] Priority: STAT Class: ER Collect Specimen Source: Cath Urine Specimen Collected: 03/13/2020 10:50 AM Resulting Agency: [facility] Test ID: JUDICIAL CLERK Reason for Culture -> Other Other, please explain -> fever Released on: 03/13/2020 10:32 AM [id number] CULTURE, BLOOD [# [id number]] Priority: STAT Class: ER Collect Specimen Source: Blood Specimen Collected: 03/13/2020 10:20 AM Resulting Agency: [facility] Test ID: HBCS Released on: 03/13/2020 10:32 AM [id number] CULTURE, BLOOD [#[id number]] Priority: STAT Class: ER Collect Specimen Source: Bloo d Specimen Collected: 03/13/2020 10:40 AM Resulting Agency: [facility] Test ID: HBCS Released on: 03/13/2020 10:32 AM [id number] COVID-19, CONCRETE BUSTER OPERATOR [#[id number]] Canceled Priority: STAT Class: ER Collect Canceled by [facility] [place] on WedMarch 13, 2020 1:41 PM Reason : Other Comment: DUPLICATE REQUEST Standing Order Information Remaining Occurrences:0/1 I nterval:ONE TIME Last released:03/13/2020 Released orders: WedMarch 13, 2020 1:03 PM by: SURESH FARAH Comment:recommended By Infections Disease dept. [id number] COVID-19, CONCRETE BUSTER OPERATOR [ #[id number]] Canceled Priority: STAT Class: ER Collect Specimen Collected: 03/13/2020 1:15 PM Resultin g Agency: [facility] Test ID: XBCOVN Canceled by [facility] [place] on WedMarch 13, 2020 1:41 PM Reason: Other Comment: DUPLICATE REQUEST Comment:recommended By Infect ions Disease dept. Released on: 03/13/2020 1:03 PM [id number] CULTURE, RESPIRATORY/SPUTUM/BRONCH W* [#[id number] ] Priority: STAT Class: ER Collect Specimen Source: Transtracheal Aspirate Standing Order Information Remaining Occurrences:0/1 Interval:ONE TIME Last released:03/13/2020 Released orders : WedMarch 13, 2020 1:30 PM by: CHIQUITA VELAZQUEZ [id number] CULTURE, RESPIRATORY/SPUTUM/BRONCH W* [#[id number] ] Priority: STAT Class: ER Collect Specimen Source: Transtracheal Aspirate Resulting Agency: [facility] Test ID: HRESC Released on: 03/13/2020 1:30 PM [id number] PRE-SURGICAL COVID PCR [#[id number]] Priority: Routine Class: ER Collect Resulting Agency: [facility] Test ID: XPLCVB Standing Order Information Remaining Occurrences:0/1 Released orders: WedMarch 13, 2020 1:15 PM by: Automatic Batch Process [id number] PRE-SURGICAL COVID PCR [#[id number]] Priority: Routine Class: ER Collect Specimen Collected: 03/13/2020 1:15 PM Rebecain ashley Agency: [facility] Test ID: XPLCVB Released on: 03/13/2020 1:15 PM [id number] [facility] [#[id number]] Priority: STAT Class: Hospital Performed Standing Order Inf ormation Remaining Occurrences:0/1 Interval:ONE TIME Last released:03/13/2020 Released o rders: WedMarch 13, 2020 10:32 AM by: MIKE ORTEGA Reason for Exam -> respiratory [id number] PORT [#[id number]] Priority: STAT Class: Hospital Performed Specimen Collected : 03/13/2020 11:26 AM Resulting Agency: [facility] Test ID: [id number] Reason for Exam -> respiratory Re leased on: 03/13/2020 10:[id number] HEAD WO CONT [#[id number]] Priority: STAT Cla ss: Hospital Performed Standing Order Information Remaining Occurrences:0/1 Interval:ONE TI ME Last released:03/13/2020 Released orders: WedMarch 13, 2020 2:04 PM by: LARRY REYNOSO Reason for Exam -> AMS [id number] CT HEAD WO CONT [#[id number]] Priority: STAT C lass: Hospital Performed Specimen Collected: 03/13/2020 2:25 PM Resulting Agency: [facility] Test ID : [id number] Reason for Exam -> AMS Released on: 03/13/2020 2:04 PM [id number] CENTRAL VENOUS LINE INSERTION [#[id number]] Priority: STAT Class: Clinic Performed Standing Order Information Sissyin g Occurrences:0/1 Last released:03/13/2020 Released orders: WedMarch 13, 2020 12:30 PM by: TYE JON Comment:This order was created via procedure documentation [id number] Central Line [#[id number]] Priority: STAT Class: Clinic Performed Comment:This order was crea roby via procedure documentation Released on: 03/13/2020 12:30 PM NAKITA SEVERE SEPSIS AND SEPTIC SHOCK [facility] * [#[id number]] Priority: STAT Class: Hospital Performed Standing Order Information Remaining Occurre nces:0/1 Interval:CONTINUOUS Last released:03/13/2020 Released orders: WedMarch 13 0 1:25 PM by: CHIQUITA VELAZQUEZ SEVERE SEPSIS AND SEPTIC SHOCK [facility]* [#[id number]] Priority: STAT C lass: Hospital Performed Released on: 03/13/2020 1:25 PM MD8 ANTICOAGULANT THERAPY IS CONTRAINDIC* [# [id number]] Priority: STAT Class: Hospital Performed Standing Order Information Remaining Occurrences:0 /1 Interval:CONTINUOUS Last released:03/13/2020 Released orders: WedMarch 13, 2020 1:28 PM by: CHIQUITA VELAZQUEZ Comment:Oozing from central line insertion site MD8 ANTICOAGULANT T HERAPY IS CONTRAINDIC* [#[id number]] Priority: STAT Class: Hospital Performed Comment:Oozing from central line insertion site Released on: 03/13/2020 1:28 PM [id number] INITIAL PHYSICIAN ORDER: INPATIENT [# [id number]] Priority: Routine Class: ADT Pend Transfer Standing [...] Plan: -> Home w ith Office Follow-up [id number] INITIAL PHYSICIAN ORDER: INPATIENT [#[id number]] Priority: Routine Class : ADT Pend Transfer [...] on: 03/13/2020 12:34 PM ISO10 DROPLET PLUS [#[id number]] Yesica ority: STAT Class: Hospital Performed Standing Order Information Remaining Occurrences:0 Inter douglas:CONTINUOUS Last released:03/13/2020 Released orders: WedMarch 13, 2020 1:04 PM by: SURESH WRIGHT Comment:JENISE ISO10 DROPLET PLUS [#[id number]] Priority: STAT Class: Hospital Performed Comment:JENISE Released on: 03/13/2020 1:04 PM [id number] VITAL SIGNS [#[id number]] Priority: Routine Class: Hospital Performed Standing Order Information Remainin g Occurrences:0/1 Interval:EVERY HOUR Last released:03/13/2020 Released orders : WedMarch 13, 2020 1:25 PM by: CHIQUITA VELAZQUEZ [id number] STRICT I & O [#[id number] ] Priority: Routine Class: Hospital Performed Standing Order Information Remaining Occurrences:0 /1 Interval:CONTINUOUS Last released:03/13/2020 Released orders: WedMarch 13, 2020 1:25 PM by: CHIQUITA VELAZQUEZ [id number] NEUROLOGIC STATUS ASSESSMENT [#[id number]] Priority: Routine C lass: Hospital Performed Standing Order Information Remaining Occurrences:0/1 Interval:EVERY HOUR Last released:03/13/2020 Released orders: WedMarch 13, 2020 1:25 PM by: CHIQUITA VELAZQUEZ N [id number] NOTIFY PROVIDER: SPECIFY [#[id number]] Priority: STAT Class: Hospital Performed Stand ing Order Information Remaining Occurrences:0/1 Interval:CONTINUOUS Last released :03/13/2020 Released orders: WedMarch 13, 2020 1:25 PM by: CHIQUITA VELAZQUEZ Describe Order -> Noti fy provider within one hour to start vasopressors if patient is unable to maintain a MAP of g reater than or equal to 65 mmHg despite fluid resuscitation [id number] HEMODYNAMIC VANDANA TORING [#[id number]] Priority: STAT Class: Hospital Performed Standing Order Information Remaining Occurrences:0/1 Interval:CONTINUOUS Last released:03/13/2020 Released orders : WedMarch 13, 2020 1:25 PM by: CHIQUITA VELAZQUEZ Comment:In the event of persistent arterial hypotension after two hours of fluid resuscitation efforts, or initial lactate greater than or equal to 4 mmol/L (36 mg/dl) measure and record CVP and ScvO2 [id number] VITAL SIGNS [#[id number]] Priority: STAT Class: Hospital Performed Released on: 03/13/2020 1:25 PM [id number] STRICT I & O [#[id number]] Priority: STAT Class: Hospital Performed Released on: 03/13 1:25 PM [id number] NEUROLOGIC STATUS ASSESSMENT [#[id number]] Priority: STAT Class: H ospital Performed Released on: 03/13/2020 1:25 PM [id number] NOTIFY PROVIDER: SPECIFY [#[id number]] Priority: STAT Class: Hospital Performed Describe Order -> Notify provider within one hour to start vasopressors if patient is unable to maintain a MAP of greater than or e qual to 65 mmHg despite fluid resuscitation Released on: 03/13/2020 1:25 PM [id number] HEMODYNAMIC MONITORING [#[id number]] Priority: STAT Class: Hospital Performed Comment:In the event of persistent ar terial hypotension after two hours of fluid resuscitation efforts, or initial lactate greater than or equal to 4 mmol/L (36 mg/dl) measure and record CVP and ScvO2 Released on: 03/13/2020 1:25 P [id number] APPLY/MAINTAIN SEQUENTIAL COMPRESSIO* [#[id number]] Priority: STAT Class: Hospital Performe d Standing Order Information Remaining Occurrences:0/1 Interval:CONTINUOUS Last released :03/13/2020 Released orders: WedMarch 13, 2020 1:28 PM by: CHIQUITA VELAZQUEZ [id number] APPLY/MAINTAIN SE QUENTIAL COMPRESSIO* [#[id number]] Priority: STAT Class: Hospital Performed Released on: 03/13/2020 1: 28 PM COD2 FULL CODE [#[id number]] Priority: STAT Class: Hospital Performe d Standing Order Information Remaining Occurrences:0/1 Interval:CONTINUOUS Last released :03/13/2020 Released orders: WedMarch 13, 2020 1:28 PM by: CHIQUITA VELAZQUEZ COD2 FULL CODE [#[id number]] Priority: STAT Class: Hospital Performed Released on: 03/13/2020 1: 28 PM CON54 IP CONSULT TO PULMONOLOGY [#[id number]] Priority: Routine Class: Hospital Perfo rmed Standing Order Information Remaining Occurrences:0/1 Interval:ONE TIME Last released: 03/13/2020 Released orders: WedMarch 13, 2020 1:30 PM by: CHIQUITA VELAZQUEZ Reason for Consult: -> septic shock on vent Did you call or speak to the consulting provider? -> No Consult To -> pulm Schedule When? -> TODAY CON54 IP CONSULT TO PULMONOLOGY [#[id number]] Priority: STAT Class : Hospital Performed Reason for Consult: -> septic shock on vent Did you call or speak to the consulting provider? -> No Consult To -> pulm Schedule When? -> TODAY Released on: 03/13/2020 1:30 PM CON5 IP CONSULT TO INFECTIOUS DISEASES [#[id number]] Priority: STAT Class: Hospital Performed Standing Or jon Information Remaining Occurrences:0/1 Interval:ONE TIME Last released:03/13/2020 Rel eased orders: WedMarch 13, 2020 1:34 PM by: CHIUQITA VELAZQUEZ Reason for Consult: -> septic shock Did you call or speak to the consulting provider? -> No Consult To -> ID Schedule When? -> TODAY CON5 IP CONSULT TO INFECTIOUS DISEASES [#[id number]] Priority: STAT Class: Hospital Performed Reason f or Consult: -> septic shock Did you call or speak to the consulting provider? -> No Consult To -> ID Schedule When? -> TODAY Released on: 03/13/2020 1:34 MARGARETHCarlyle ross MR#: [id number] * Rm: 276-01Ht: 5' 7" Wt: 250 lb Code: Full Code Iso: Droplet PlusDiagnosis:Sep tic shock (HCC) [A41.9, R65.21]Allergies: No Known Allergies -------- Current as of: 03/13/20 1439 GI=Given HE=Held IC=IV Comple roby NB=New Bag RC=Rate Change RE2=Restarted ST=Stopped ---------0.9% sodium chloride infusion #[id number] Ordered Dose: 100 mL/hr Route: IntraVENous Freq: CONTINUOUS Start Date: 03/13/20 Rate: 100 mL/hr Duration: Administration times (back 96 hours, e ad 96 hours): 03/13/20: 1114NB 1148HE -----piperacillin-tazobactam (ZOSYN) 4.5 g in 0.9% sodium chloride (M BP/A*#[id number] Admin Amount: 4.5 g Ordered Dose: 4.5 g Route: IntraVENous Freq: NOW Start Date: 03/13/20 Rate: 200 mL/hr Duration: 30 Minutes Administration pretty es (back 96 hours, ahead 96 hours): 03/13/20: 1113NB 1148IC -----acetaminophen (TYLENOL) tablet 975 mg #[id number] Admin Amount: 3 Tab (3 x 325 mg Tab) Ordered Dose: 975 mg Route: Per G Tube F req: NOW Start Date: 03/13/20 Administration times (back 96 hours, ahead 96 hours): : 1122GI -----sodium chloride 0.9 % bolus infusion 1,000 mL #[id number] Admin Amount: 1,000 mL Ordered Dose: 1,000 mL Route: IntraVENous Freq: ONCE Start Date: 03/13/20 Rate: 1,000 mL/hr Duration: 60 Minutes Administration pretty es (back 96 hours, ahead 96 hours): 03/13/20: 1148NB 1234IC -----vancomycin (VANCOCIN) 1,000 mg in 0.9% sodium chloride (MBP/ADV) 250 *#[id number] Admin Amount: 1,000 mg Ordered Dose: 1,000 mg Route: IntraVENous Freq: NOW Start Date: 03/13/20 Rate: 125 mL/hr Duration: 120 Minutes Administration ti mes (back 96 hours, ahead 96 hours): 03/13/20: 1147NB -----0.9% sodium chloride infusion 3,402 mL #[id number] Admin Amount: 3,402 mL Ordered Dose: 30 mL/kg x 113.4 kg Route: IntraVENous Freq: O NCE Start Date: 03/13/20 Administration times (back 96 hours, ahead 96 hours): 03/13/20: 12 Chrales Chandanaa MR#: [id number] * Rm: 276-01Ht: 5' 7" Wt: 250 lb Code: Full Code Iso: Droplet PlusDiagnosis:Septic shock ([facility]) [A41.9, R65.21]Allergies: No Known Allergies -------- Current as of: 03/13/20 1439 GI=Given HE=Held IC=IV Comple roby NB=New Bag RC=Rate Change RE2=Restarted ST=Stopped ---------NOREPINephrine (LEVOPHED) 8 mg in 5% dextrose 250mL (32 mcg/mL) infu*#[id number] Ordered Dose: 8 mcg/min Route: IntraVENous Freq: TITRATE Start Date: 03/13/20 Rate: 15 mL/hr Duration: Administration times (back 96 hours, ahe ad 96 hours): 03/13/20: 1302NB 1322RC 1333ST 4770LB2 1352RC -----sodium chloride (NS) flush 5-10 mL #[id number] Admin Amount: 5-10 mL Ordered Dose: 5-10 mL Route: IntraVENous Freq: NEEDED Start Date: 03/13/20 No administration times (back 96 hours, ahead 96 hours). ------acetaminophen (TYLENOL) suppository 650 mg #[id number] Admin Amount: 1 Suppository (1 x 650 mg Suppository) Ordered Dose: 650 mg Ro patricia: Rectal Freq: EVERY 4 HOURS NEEDED Start Date: 03/13/20 No administration times (back 96 hours, e ad 96 hours). ------ondansetron (ZOFRAN) injection 4 mg #[id number] Admin Amount: 2 mL = 4 mg of 4 mg/2 mL Ordered Dose: 4 mg Route: IntraVENo us Freq: EVERY 6 HOURS NEEDED Start Date: 03/13/20 No administration times (back 96 hours, e ad 96 hours). ------vancomycin (VANCOCIN) 1,250 mg in 0.9% sodium chloride 250 mL IVPB #[id number] Admin Amount: 1,250 mg Ordered Dose: 1,250 mg Route: IntraVENous Freq: EVERY 12 HOUR S Start Date: 03/13/20 Rate: 125 mL/hr Duration: 120 Minutes Administration ti mes (back 96 hours, ahead 96 hours): 03/13/20: 2300 03/14/20: 1100 2300 03/15/20: 1100 2300 03/16/20: 1100 2300 03/17/20: 1100Carlyle Pate MR#: [id number] * Rm: 276-01Ht: 5' 7" Wt: 250 lb Code: Full Code Iso: Droplet PlusDiagnosis:Septic shock ([facility]) [A41.9, R65.21]Allergies: No Known Allergies -------- Current as of: 03/13/20 1439 GI=Given HE=Held IC=IV Comple roby NB=New Bag RC=Rate Change RE2=Restarted ST=Stopped ---------piperacillin-tazobactam (ZOSYN) 3.375 g in 0.9% sodium chloride (MBP*#[id number] Admin Amount: 3.375 g Ordered Dose: 3.375 [...] Swish and Spit route daily.Dispense Amount:Start Date: nd Date:Doc. Provider: Adrien Jones MDdocusate sodium (Colace) [...] Date:Doc. Provider: Adrien Jones MDFLUTICASONE PROPIONATE INSi [place] by Nasal route two (2) times a [...] Pain.Dispense Amount:Start Date:End Date:Doc. Provider: Adrien Jones MDacemely minophen (TYLENOL) 325 mg tabletSi mg by Per G Tube route every four (4) hours as needed for Pain.Dispense Am ount:Start Date:End Date:Doc. Provider: Adrien Jones MD ED Prescriptions None on FileFollow-up InformationFollow-up With:Claudia Singh MDDetails:Comm ents:Contact Info:Saad INTERIANO [phone] Name Value Range Interpretation Code Description Data [facility] rce(s) Supporting Document(s ) ID Date Data Source [id number] 03/13/2020 02:31:21 PM EDT [facility] CT HEAD WO CONTClinical data: AMSPriors: None.Technique: Multiple axial images were obtained from the skullbase to the verte xwithout administration of intravenous contrast. Sagittal and coronalreconstru ction was performed. Utilizing car ferry master algorithm the examinationwas performed t o optimize [...] Name Value Range Interpretation Code Description Data [facility] rce(s) Supporting Document(s ) ID Date Data Source [id number] 03/13/2020 01:52:29 PM EDT [facility] TRANSFER - OUT REPORT:Verbal report give n [...] Supporting Document(s ) ID Date Data Source [id number] 03/13/2020 08:35:09 PM EDT [facility] Name Value Range Interpretation Code Description Data [facility] rce(s) Supporting Document(s ) AGUS MURPHY [facility] Testing Performed by:Nikos milian [place], [place] [address]CGO REPORT FROM REFERENCE LAB ID Date Data Source [id number] 03/13/2020 12:57:32 PM EDT [facility] Pt BIB[facility] from [facility] with Resp failure, at H was given duoneb, ativan, morphineand placed on ventilator. Pt came in with a kelly, Gtube, and trach collar. InER pt placed on ventilator tolerating well 02 Sat 100 on vent. Ed provider andRT at bedside.only responds to painful stimuli line and labs drawn, antiboitic and bolus given. Bp 91/28.As per paper work from [facility] pt has had multiple covid test that are negative Name Value Range Interpretation Code Description Data Annabelle rce(s) Supporting Document(s ) ID Date Data Source [id number] 03/13/2020 12:55:45 PM EDT [facility] Pt BP is 97/67 map of 77 levophed held Name Value Range Interpretation Code Description Data Annabelle rce(s) Supporting Document(s ) ID Date Data Source [id number] 03/13/2020 12:43:24 PM EDT [facility] Central line placed by dr ortega. Positive blood return in all 3 lumens, venousblood gas sent. Levophed ordered Name Value Range Interpretation Code Description Data Annabelle rce(s) Supporting Document(s ) ID Date Data Source [id number] 03/13/2020 12:37:03 PM EDT [facility] Pt place on cooling blanket Name Value Range Interpretation Code Description Data Annabelle rce(s) Supporting Document(s ) ID Date Data Source [id number] 03/13/2020 12:35:11 PM EDT [facility] ED provider made aware of BP 52/38. Cent ral line ordered. Name Value Range Interpretation Code Description Data Annabelle rce(s) Supporting Document(s ) ID Date Data Source [id number] 03/13/2020 12:26:43 PM EDT [facility] Name Value Range Interpretation Description Data Sup porting Code Source(s) Document(s ) pH of Venous 7.40 7.32-7.4 [facility] - Good blood 3 [facility] Carbon dioxide 43 mmHg 38-54 [facility] - Good [Partial [facility] pressure] in Hospital Venous blood Oxygen 37 mmHg 25-40 [facility] - Good [Partial [facility] pressure] in Hospital Venous blood Carbon 28 22-26 Above high normal [facility] - Good dioxide, total mmol/L [facility] [Moles/volume] [facility] in Venous blood Bicarbonate 27 22-29 [facility] - Good [Moles/volume] mmol/L [facility] in Venous Hospital blood Oxygen 68 % [facility] - Good saturation in [facility] Venous blood Hospital Oxygen gas [facility] - Good flow Oxygen [facility] delivery [facility] Oxygen/Inspire 50.0 % [facility] - Good d gas [facility] Respiratory [facility] --on ventilator Ventilation [facility] - Good mode [facility] [Identifier] [facility] Ventilator PEEP 5 [facility] - Good Respiratory [facility] system Hospital Tidal volume 500 [facility] - Good setting [facility] Ventilator Hospital Respiratory 14 [facility] - Good rate [facility] [address] [facility] - Good comment [facility] ID Date Data Source [id number] 03/13/2020 11:27:25 AM EDT [facility] XR CHEST PORTABLE-SINGLE VIEWPRIOR: None HISTORY: Limited to that provided by the emergency department at the time ofthis examination; BIBA from [facility] for res failurePt has trach collar [...] Supporting Document(s ) ID Date Data Source [id number] 03/13/2020 11:17:11 AM EDT [facility] made aware of pt temp, tylenol to be order Name Value Range Interpretation Code Description Data Annabelle rce(s) Supporting Document(s ) ID Date Data Source [id number] 03/13/2020 10:53:46 AM EDT [facility] BIBA from [facility] for res failurePt has trac h collar and vented Name Value Range Interpretation Code Description Data Annabelle rce(s) Supporting Document(s ) ID Date Data Source [id number] 03/15/2020 07:45:01 AM EDT [facility] Name Value Range Interpretation Code Description Data Annabelle rce(s) Supporting Document(s ) Service [facility] >100,000COLONIES/mLKLEBSIELLA PNEUMONIAE ID Date Data Source [id number] 03/15/2020 07:45:01 AM EDT [facility] Name Value Range Interpretation Description Data Sup porting Code Source(s) Document(s ) Ampicillin 16 ug/mL Results entered -- [facility] - [Susceptibility] not verified Good by Minimum [facility] inhibitory Hospital concentration (ADIS) Piperacillin+Tazo Susceptible. [facility] - bactam Indicates for Good [Susceptibility] microbiology [facility] by Minimum susceptibilities Hospital inhibitory only. concentration (ADIS) Cefazolin Susceptible. [facility] - [Susceptibility] Indicates for Good by Minimum microbiology [facility] inhibitory susceptibilities Hospital concentration only. (ADIS) Ceftazidime Susceptible. [facility] - [Susceptibility] Indicates for Good by Minimum microbiology [facility] inhibitory susceptibilities Hospital concentration only. (ADIS) Ciprofloxacin Susceptible. [facility] - [Susceptibility] Indicates for Good by Minimum microbiology [facility] inhibitory susceptibilities Hospital concentration only. (ADIS) Levofloxacin Susceptible. [facility] - [Susceptibility] Indicates for Good by Minimum microbiology [facility] inhibitory susceptibilities Hospital concentration only. (ADIS) Gentamicin Susceptible. [facility] - [Susceptibility] Indicates for Good by Minimum microbiology [facility] inhibitory susceptibilities Hospital concentration only. (ADIS) Tobramycin Susceptible. [facility] - [Susceptibility] Indicates for Good by Minimum microbiology [facility] inhibitory susceptibilities Hospital concentration only. (ADIS) Nitrofurantoin 64 ug/mL Specimen in lab; [facility] - [Susceptibility] results pending Good by Minimum [facility] inhibitory Hospital concentration (ADIS) Trimethoprim+Sulf Susceptible. [facility] - amethoxazole Indicates for Good [Susceptibility] microbiology [facility] by Minimum susceptibilities Hospital inhibitory only. concentration (ADIS) Beta Susceptible. [facility] - lactamase.extende Indicates for Good d spectrum microbiology [facility] [Susceptibility] susceptibilities Hospit al only. Ampicillin+Sulbac 4 ug/mL Susceptible. [facility] - mulligan Indicates for Good [Susceptibility] microbiology [facility] by Minimum susceptibilities Hospital inhibitory only. concentration (ADIS) ID Date Data Source [id number] 03/13/2020 11:43:40 AM EDT [facility] Name Value Range Interpretation Description Data Sup porting Code Source(s) Document(s ) Color of Urine YEL [facility] - [facility] Appearance of CLEAR Abnormal (applies [facility] - Urine to non-numeric Good results) [facility] Specific gravity 1.015 1.005-1. [facility] - of Urine by 030 Good Refractometry [facility] pH of Urine by 8.0 4.6-8.0 [facility] - Test strip [facility] Protein NEG [facility] - [Mass/volume] in Good Urine by Test [facility] Glucose NEG [facility] - [Mass/volume] in Good Urine by [facility] Automated test [facility] strip Ketones NEG [facility] - [Presence] in Good Urine by [facility] Automated test Hospital strip Bilirubin.total NEG [facility] - [Presence] in Good Urine [facility] Hemoglobin NEG Abnormal (applies [facility] - [Presence] in to non-numeric Good Urine by Test results) [facility] Urobilinogen 0.2 0.2-1.0 [facility] - [Presence] in EU/dL Good Urine by [facility] Automated test Hospital strip Nitrite NEG [facility] - [Presence] in Good Urine by [facility] Automated test Hospital strip Leukocyte NEG Abnormal (applies [facility] - esterase to non-numeric Good [Presence] in results) [facility] Urine Hospital Automated test strip ID Date Data Source [id number] 03/13/2020 11:43:40 AM EDT [facility] - Good [facility] Name Value Range Interpretation Description Data Sup porting Code Source(s) Document(s ) Leukocytes [facility] - Good [Presence] in [facility] by Light microscopy Erythrocytes [facility] - Good [#/area] in [facility] by Microscopy high power field Epithelial cells [facility] - Good [#/area] in [facility] by Microscopy high power field Bacteria [facility] - Good [Presence] in [facility] by Light microscopy Crystals [facility] - Good [Presence] in [facility] by Light microscopy Granular casts [facility] - Good [Presence] in [facility] by Light microscopy ID Date Data Source [id number] 03/13/2020 11:28:[address] [facility] Value Range Interpretation Description Data Sup porting Code Source(s) Document(s ) Lactate 4.7 0.4-2.0 Above upper panic [facility] - Good [Moles/volu MMOL/L limits formerly [facility]] in Hospital Serum or Plasma CALLED TO AND READ BACK BYREBECCA WILSON RN 03/13/20 1127AM [facility] ID Date Data Source [id number] 03/15/2020 06:14:04 AM EDT [facility] Value Range Interpretation Code Description Data Annabelle rce(s) Supporting Document(s ) Service [facility] - Good comment [facility] GRAM NEGATIVE RODSONANAEROBIC BOTTLECALL ED TO AND READ BACK BYLIGIA BARRON,RN,CCU,03/13/20 @ 2020 S AYLSON RODASC BOTTLEGRAM NEGATIVE RODSKLEBSIELLA PNEUMONIAE: Refer to previous culture(s) for susceptibility results ID Date Data Source [id number] 03/13/2020 01:43:51 PM EDT [facility] - [facility] Name Value Range Interpretation Description Data Sup porting Code Source(s) Document(s ) Leukocytes 3.8 K/uL 4.8-10.6 Below low normal [facility] - [#/volume] in Good Blood by [facility] Automated count Hospital Erythrocytes 2.97 4.70-6.0 Below low normal [facility] - [#/volume] in M/uL 0 Good Blood by [facility] Automated count [facility] Hemoglobin 8.6 g/dL 14.0-18. Below low normal [facility] - [Mass/volume] in 0 Good Blood [facility] Hematocrit 28.1 % 42.0-52. Below low normal [facility] - [Volume 0 Good Fraction] of [facility] Blood by Hospital Automated count Erythrocyte mean 94.6 FL 81.0-94. Above high normal [facility] - corpuscular 0 Good volume [Entitic [facility] volume] by Hospital Automated count Erythrocyte mean 29.0 PG 27.0-35. [facility] - corpuscular 0 Good hemoglobin [facility] [Entitic mass] Hospital by Automated count Erythrocyte mean 30.6 30.7-37. Below low normal [facility] - corpuscular g/dL 3 Good hemoglobin [facility] [Mass/volume] by Automated count Erythrocyte 17.2 % 11.5-14. Above high normal [facility] - distribution 0 Good width [Ratio] by [facility] Automated count Hospital Platelets 205 K/uL 130-400 [facility] - [#/volume] in Good Blood by [facility] Automated count Hospital Platelet mean 12.0 FL 9.2-11.8 Above high normal [facility] - volume [Entitic Good volume] in Blood [facility] by Automated Hospital count Nucleated 0.0 PER 0 [facility] - erythrocytes/100 100 WBC Good leukocytes [facility] [Ratio] in Blood [facility] Nucleated 0.00 0.0-0.01 [facility] - erythrocytes K/uL Good [#/volume] in [facility] Blood [facility] Segmented 87 % 48.0-72. Above high normal [facility] - neutrophils/100 0 Good leukocytes in [facility] Band form 10 % 0 Above high normal [facility] - neutrophils/100 Good leukocytes in [facility] Blood by Manual Hospital count Lymphocytes/100 0 % 18.0-40. Below low normal [facility] - leukocytes in 0 [facility] Monocytes/100 1 % 2.0-12.0 Below low normal [facility] - leukocytes in [facility] Eosinophils/100 0 % 0.0-7.0 [facility] - leukocytes in [facility] Basophils/100 1 % 0.0-3.0 [facility] - leukocytes in [facility] Metamyelocytes/1 1 % 0 Above high normal [facility] - 00 leukocytes in [facility] Blood by Manual [facility] count Hospital Immature 0 % [facility] - granulocytes/100 Good leukocytes in [facility] Blood by Hospital Automated count Segmented 3.8 K/UL 2.3-7.6 [facility] - neutrophils Good [#/volume] in [facility] Lymphocytes 0.0 K/UL 0.9-4.2 Below low normal [facility] - [#/volume] in [facility] Monocytes 0.0 K/UL 0.1-1.7 Below low normal [facility] - [#/volume] in [facility] Eosinophils 0.0 K/UL 0.0-1.0 [facility] - [#/volume] in [facility] Basophils 0.0 K/UL [facility] - [#/volume] in [facility] Immature 0.0 K/UL [facility] - granulocytes Good [#/volume] in [facility] by Hospital Automated count Erythrocyte [facility] - morphology Good finding [facility] [Identifier] in Hospital Blood Platelet [facility] - adequacy Good [Presence] in [facility] Blood by [facility] Hospital microscopy Differential [facility] - cell count Good method [facility] ID Date Data Source [id number] 03/13/2020 11:27:42 AM EDT [facility] - [facility] Name Value Range Interpretation Description Data Sup porting Code Source(s) Document(s ) Troponin 0.07 0.00-0.05 Above upper panic [facility] - Good I.cardiac NG/ML [facility] [Mass/volume Hospital ] in Serum or Plasma [...] to 1.50 ng/mL ID Date Data Source [id number] 03/13/2020 11:17:43 AM EDT [facility] Value Range Interpretation Description Data Sup porting Code Source(s) Document(s ) aPTT in 20.0 SEC 21.0-28. Below low normal [facility] - Good Platelet poor 0 [facility] plasma by [facility] Coagulation assay Therapeutic Range = 42.0-60.0 secs ID Date Data Source [id number] 03/13/2020 11:17:43 AM EDT [facility] Interpretation Description Data Sup porting Code Source(s) Document(s ) Prothrombin 11.0 sec 9.4-11.1 [facility] - Good time (PT) [facility] INR in 1.1 0.8-1.2 [facility] - Good Platelet poor [facility] plasma by [facility] Coagulation assay ID Date Data Source [id number] 03/13/2020 11:15:[address] [facility] Value Range Interpretation Code Description Data Supporting Source(s) Document(s ) Lipase 116 U/L 73-393 [facility] - Good [Enzymatic [facility] activity/vo Hospital lume] in Serum or Plasma ID Date Data Source [id number] 03/13/2020 11:15:[address] [facility] Value Range Interpretation Description Data Sup porting Code Source(s) Document(s ) Sodium 138 136-145 [facility] - Good [Moles/volume] mmol/L [facility] in Serum or Hospital Plasma Potassium 4.2 3.5-5.1 [facility] - Good [Moles/volume] mmol/L [facility] in Serum or Hospital Plasma Chloride 105 98-107 [facility] - Good [Moles/volume] mmol/L [facility] in Serum or Hospital Plasma Carbon 27 21-32 [facility] - Good dioxide, total mmol/L [facility] [Moles/volume] Hospital in Serum or Plasma Anion gap in 11 10-20 [facility] - Good Serum or mmol/L [facility] Plasma Hospital Glucose 82 mg/dL 74-106 [facility] - Good [Mass/volume] [facility] in Serum or Hospital Plasma Urea nitrogen 25 mg/dL 7-18 Above high normal [facility] - Good [Mass/volume] [facility] in Serum or Hospital Plasma Creatinine 1.09 0.70-1.3 [facility] - Good [Mass/volume] mg/dL 0 [facility] in Serum or Hospital Plasma Glomerular >60 [facility] - Good filtration [facility] rate/1.73 sq M Hospital predicted among blacks [Volume Rate/Area] in Serum or Plasma by Creatinine-bas ed formula (MDRD) Glomerular >60 [facility] - Good filtration [facility] rate/1.73 sq M Hospital predicted among non-blacks [Volume Rate/Area] in Serum or Plasma by Creatinine-bas ed formula (MDRD) (NOTE)Estimated GFR is calculated using the Modification of Diet in RenalDisease (MDRD) Study equation, reported for both Americans(GFRAA) and non- Americans (GFRNA), and normalized to 1.7 3u2bdzn surface area. The physician must decide which [...] normal [facility] - Good Serum or Plasma [facility] H[facility] ital Bilirubin.total 0.3 mg/dL 0.2-1.0 [facility] - Good [Mass/volume] in Serum or [facility] Plasma Alanine aminotransferase 11 U/L 13-61 Below low normal [facility] [Enzymatic activity/volume] [facility] in Serum or Plasma Aspartate aminotransferase 30 U/L 15-37 [facility] - Good [Enzymatic activity/volume] [facility] in Serum or Plasma by With P-5'-P Alkaline phosphatase 87 U/L 45-117 [facility] - [facility] ood [Enzymatic activity/volume] [facility] in Serum or Plasma Protein [Mass/volume] in 6.6 g/dL 6.4-8.2 [facility] Serum or Plasma [facility] ital Albumin [Mass/volume] in 2.4 g/dL 3.5-4.7 Below low normal [facility] Serum or Plasma by [facility] ospital Bromocresol purple (BCP) dye binding method Globulin [Mass/volume] in 4.2 g/dL 1.7-4.7 [facility] Serum by calculation [facility] Albumin/Globulin [Mass 0.6 0.7-2.8 Below low normal [facility] Ratio] in Serum or Plasma [facility] ID Date Data Source [id number] 03/13/2020 10:31:57 AM EDT [facility] Patient BIBA on LTV from [facility] in respirat ory distress Placed on LTV with theirsettings of 500/14/+5\\50% VSS at this time. Name Value Range Interpretation Code Description Data Annabelle rce(s) Supporting Document(s ) ID Date Data Source [id number] 03/15/2020 06:12:20 AM EDT [facility] Name Value Range Interpretation Code Description Data Annabelle rce(s) Supporting Document(s ) Service [facility] GRAM NEGATIVE RODSonAEROBIC AND ANAEROBI C BOTTLESCALLED TO AND READ BACK BYLIGIA BARRON RN,CCU,03/13/20 @ 2020 Latricia Daily Bacteria identified in Abnormal (applies to [facility] Unspecified specimen by non-numeric results) Hospital Culture ID Date Data Source [id number] 03/15/2020 06:12:20 AM EDT [facility] - Good [facility] Name Value Range Interpretation Code Description Data Supporting Source(s) Document(s ) Ampicillin Results entered -- [facility] - [Susceptibility] not verified Good by Minimum [facility] inhibitory Hospital concentration (ADIS) Cefazolin Susceptible. [facility] - [Susceptibility] Indicates for Good by Minimum microbiology [facility] inhibitory susceptibilities Hospital concentration only. (ADIS) Ceftazidime Susceptible. [facility] - [Susceptibility] Indicates for Good by Minimum microbiology [facility] inhibitory susceptibilities Hospital concentration only. (ADIS) Ciprofloxacin Susceptible. [facility] - [Susceptibility] Indicates for Good by Minimum microbiology [facility] inhibitory susceptibilities Hospital concentration only. (ADIS) Levofloxacin Susceptible. [facility] - [Susceptibility] Indicates for Good by Minimum microbiology [facility] inhibitory susceptibilities Hospital concentration only. (ADIS) Gentamicin Susceptible. [facility] - [Susceptibility] Indicates for Good by Minimum microbiology [facility] inhibitory susceptibilities Hospital concentration only. (ADIS) Trimethoprim+Sul Susceptible. [facility] - famethoxazole Indicates for Good [Susceptibility] microbiology [facility] by Minimum susceptibilities Hospital inhibitory only. concentration (ADIS) Beta Susceptible. [facility] - lactamase.extend Indicates for Good ed spectrum microbiology [facility] [Susceptibility] susceptibilities Hospit al only. Ampicillin+Sulba 4 ug/mL Susceptible. [facility] - ctam Indicates for Good [Susceptibility] microbiology [facility] by Minimum susceptibilities Hospital inhibitory only. concentration (ADIS) ID Date Data Source [id number] 03/13/2020 09:49:00 AM EDT [facility] ospital Name Value Range Interpretation Description Data Sup porting Code Source(s) Document(s ) C-REACTIVE 0.28 0.0-0.3 Normal (applies to [facility] PROTEIN INF mg/dL non-numeric Hospital results) ID Date Data Source [id number] 03/13/2020 09:49:00 AM EDT [facility] ospital Name Value Range Interpretation Description Data Sup porting Code Source(s) Document(s ) ERYTHROCYTE 60 mm/hr 0-20 Above high normal [facility] SEDIMENTATION Hospital RATE ID Date Data Source [id number] 03/13/2020 09:49:00 AM EDT [facility] ospital Name Value Range Interpretation Description Data Sup porting Code Source(s) Document(s ) WHITE 2.2 3.5-9.1 Below lower panic [facility] BLOOD 10(3)/uL limits Hospital COUNT SPOKE TO KATLIN THOMAS 1039 0READ BACK AND VERIFIEDRESULTS REPEATED AND VERIFIED RED BLOOD COUNT 3.16 10(6)/uL 4.30-5.60 Below low normal [facility] HEMOGLOBIN 9.3 g/dL 13.3-16.2 Below low normal [facility] HEMATOCRIT 29.1 % 38.8-46.4 Below low normal [facility] MEAN CORPUSCULAR VOLUME 92 fl 79-93 Normal (applies [facility] to non-numeric Hospital results) MEAN CORPUSCULAR 29 pg 27-32 Normal (applies [facility] HEMOGLOBIN to non-numeric Hospital results) MEAN CORPUSCULAR HGB 32 g/dl 32-36 Normal (applies [facility] CONC to non-numeric Hospital results) RED CELL DISTRIBUTION 17.1 % 0.0-14.[address] [facility] normal Hospital PLATELET COUNT 203 10(3)/uL 165-415 Normal (applies [facility] to non-numeric Hospital results) MEAN PLATELET VOLUME 11.1 fl 9.0-13.0 Normal (applies [facility] to non-numeric Hospital results) ID Date Data Source [id number] 03/13/2020 09:49:00 AM EDT [facility] ospital Name Value Range Interpretation Description Data Sup porting Code Source(s) Document(s ) TOTAL CELLS 100 [facility] NEUTROPHILS 74.0 % [facility] BAND 14.0 % [facility] LYMPHOCYTE 4.0 % [facility] VARIANT LYMPHS 0.0 % [facility] MONOCYTE 1.0 % [facility] EOSINOPHIL 0.0 % [facility] BASOPHIL 0.0 % [facility] METAMYELOCYTE 7.0 % [facility] MYELOCYTE % 0.0 % [facility] PROMYELOCYTE 0.0 % [facility] BLAST 0.0 % [facility] PLASMA CELL 0.0 % [facility] NEUTROPHILS 1.97 1.42-6.3 Normal (applies [facility] #MANUAL K/mm3 4 to non-numeric Hospital results) VACUOLES SEEN. IMMATURE GRANULOCYTE 0.16 K/mm3 0.00-0.45 Normal (applies to [facility] #MANUAL non-numeric results) Hospital LYMPH #MANUAL 0.09 K/mm3 0.71-4.53 Below low normal [facility] yes Hospital MONO #MANUAL 0.02 K/mm3 0.14-0.72 Below low normal [facility] EOS #MANUAL 0.00 K/mm3 0.00-0.54 Normal (applies to [facility] yes non-numeric results) Hospital BASO #MANUAL 0.00 K/mm3 0.00-0.18 Normal (applies to [facility] ayes non-numeric results) Hospital PLATELETS COMMENT [facility] FEW PLATELET CLUMPS SEEN. INTERPRET WITH CAUTION. ANISOCYTOSIS SLIGHT [facility] Hospi manju ID Date Data Source [id number] 03/13/2020 09:49:00 AM EDT [facility] H ospital Name Value Range Interpretation Description Data Sup porting Code Source(s) Document(s ) LACTATE 4.3 0.4-2.0 Above upper panic [facility] VENOUS mmol/L limits Hospital SPOKE TO ASAD DAMON @ 110EAD BACK AN D VERIFIED ID Date Data Source [id number] 03/13/2020 09:49:00 AM EDT [facility] ospital Name Value Range Interpretation Description Data Sup porting Code Source(s) Document(s ) BLOOD UREA 26 mg/dL 7-18 Above high normal [facility] NITROGEN [facility] CREATININE 1.02 0.70-1.3 Normal (applies [facility] mg/dL 0 to non-numeric Hospital results) SODIUM LEVEL 142 136-145 Normal (applies [facility] mmol/L to non-numeric Hospital results) POTASSIUM 3.8 3.5-5.1 Normal (applies Ar[facility] LEVEL mmol/L to non-numeric Hospital results) BUN/CREATININE 25.4 12.0-20. Above high normal [facility] ayes RATIO 0 Hospital EST GLOMERULAR > 60.0 > 60 [facility] FILTRATION mL/min/ mL/min Hospital RATE GFR ESTIMATE MDRD Equation (Modification of Diet in RenalDisease). Reference range is >= 60mL/min/1.73m2 If patient is Afri can [place], multiply printed result by1.21NOTE: A calculated eGFR of <60 woods ggests chronic kidneydisease, but only if found consistently over at least 3months . A calculated result of <15 is consistent with renalfailure. CREATININE CLEARANCE CALC 58.00 mL/min > 60 mL/min [facility] Medication dose adjustment may be needed for [...] unstable renal function. ID Date Data Source [id number] 03/13/2020 09:48:00 AM EDT [facility] ospital X-RAY CHEST (03/13/2020) History: D [...] Supporting Document(s ) ID Date Data Source [id number] 03/13/2020 09:32:00 AM EDT [facility] ospital What is the Source CLEAN CATCHIndication s for Urine Screen Leukocytosis What is the Source CLEAN CATCHIndication s for Urine Screen Leukocytosis Name Value Range Interpretation Description Data Sup porting Code Source(s) Document(s ) COLOR, URINE YELLOW STRAW [facility] APPEARANCE, CLOUDY CLEAR [facility] GLUCOSE, NEG NEG [facility] URINE (UA) Hospital BILIRUBIN, NEG NEG [facility] KETONE, URINE NEG NEG [facility] UROBILINOGEN, 0.2 EU/dL 0.0-0.5 Normal (applies [facility] URINE to non-numeric Hospital results) SPECIFIC 1.015 1.001-1. Normal (applies [facility] GRAVITY,URINE 035 to [facility] Hospital results) OCCULT BLOOD 3+ NEG Abnormal (applies [facility] URINE to [facility] Hospital results) PH Urine 8.0 U 4.6-8.0 Normal (applies [facility] to [facility] Hospital results) PROTEIN, TRACE NEG Abnormal (applies [facility] URINE to [facility] Hospital results) NITRITE, NEG NEG [facility] URINE TRACE NEG Abnormal (applies [facility] LEUKOCYTE to [facility] Hospital ESTERASE results) ID Date Data Source [id number] 03/13/2020 09:32:00 AM EDT [facility] ospital What is the Source CLEAN CATCHIndication s for Urine Screen Leukocytosis What is the Source CLEAN CATCHIndication s for Urine Screen Leukocytosis Name Value Range Interpretation Description Data Sup porting Code Source(s) Document(s ) RBC, 40-50 0-3 [facility] URINE /HPF Hospital WBC, 1-3 /HPF 0-5 [facility] BACTERIA, MANY /HPF RARE-FEW [facility] ID Date Data Source [id number] 03/13/2020 12:00:00 AM EDT [facility] Name Value Range Interpretation Description Data Sup porting Code Source(s) Document(s ) 2019 Novel [facility] Coronavirus RNA This lab was ordered by [facility] Latricia palma and reported by [facility]. ID Date Data Source [id number] 03/12/2020 10:49:00 AM EDT [facility] ospital X-RAY CHEST (03/12/2020) Clinical In [...] Supporting Document(s ) ID Date Data Source [id number] 03/12/2020 09:00:00 AM EDT [facility] ospital Room Air: YROOM AIR Name Value Range Interpretation Description Data Sup porting Code Source(s) Document(s ) ARTERIAL 7.489 7.350-7. Above high normal [facility] BLOOD GAS pH 450 Hospital ART BLD 41.9 mmHg 35-45 Normal (applies [facility] PARTIAL to non-numeric Hospital PRESSURE CO2 results) ART BLD 68 mmHg 80-105 Below low normal [facility] Hospital PRESSURE O2 ARTERIAL 31.9 meq/L 22-26 Above high normal [facility] GAS [facility] HCO3 ARTERIAL 8.0 -2.0-3.0 Above high normal [facility] BASE EXCESS ARTERIAL BLD 94.0 % 95-98 Below low normal [facility] O2 Hospital SATURATION MODALITY ROOM AIR [facility] ARTERIAL 21.0 % [facility] BLOOD GAS Hospital FIO2 ARTERIAL LEFT RADIAL [facility] BLOOD GAS [facility] DRAW SITE MODIFIED POSITIVE [facility]'S TEST Hospital ID Date Data Source [id number] 03/12/2020 06:04:00 AM EDT [facility] ospital Name Value Range Interpretation Description Data Sup porting Code Source(s) Document(s ) PROTHROMBIN 10.8 9.4-11.5 Normal (applies [facility] TIME (PATIENT) SECONDS to non-numeric Hospital results) INR 1.04 [facility] INR RANGE IS DIAGNOSIS SPECIFICINR VALUE S <1.5 ARE NON-THERAPEUTICFOR INR >1.5, CONSULT ORDERS ID Date Data Source [id number] 03/12/2020 06:04:00 AM EDT [facility] ospital Name Value Range Interpretation Code Description Data Annabelle rce(s) Supporting Document(s ) GLUCOSE 102 mg/dL 74-100 Above high normal [facility] "Assay results affected by Sulfasalazine therapy. If thepatient is taking this drug, please contact the laboratory". BLOOD UREA NITROGEN 29 mg/dL 7-18 Above high normal [facility] CREATININE 0.75 mg/dL 0.70-1.30 Normal (applies to [facility] non-numeric results) SODIUM LEVEL 143 mmol/L 136-145 Normal (applies to [facility] non-numeric results) POTASSIUM LEVEL 3.1 mmol/L 3.5-5.1 Below low normal [facility] CHLORIDE LEVEL 105 mmol/L 98-107 Normal (applies to [facility] non-numeric results) CARBON DIOXIDE LEVEL 36 mmol/L 21-32 Above high normal [facility] ANION GAP 2 mmol/L 2-8 Normal (applies to [facility] non-numeric results) CALCULATED RESULT BUN/CREATININE RATIO 38.6 12.0-20.0 Above high [facility] EST GLOMERULAR > 60.0 > 60 mL/min [facility] FILTRATION RATE mL/min/ Hospital GFR ESTIMATE MDRD Equation (Modification of Diet in RenalDisease). Reference range is >= 60mL/min/1.73m2 If patient is Afri can [place], multiply printed result by1.21NOTE: A calculated eGFR of <60 woods ggests chronic kidneydisease, but only if found consistently over at least 3months . A calculated result of <15 is consistent with renalfailure. CREATININE CLEARANCE CALC 74.00 mL/min > 60 mL/min [facility] Medication dose adjustment may be needed for [...] limited in thesetting of extremes of mus eusbeio mass (e.g. obesity oratrophy),extremes of age, malnutrition, liver disease,advance d renal failure, and unstable renal function. OSMOLALITY CALCULATED 291 280-301 Normal (applies to [facility] non-numeric results) CALCULATED RESULT ID Date Data Source [id number] 03/12/2020 06:04:00 AM EDT [facility] ospital Name Value Range Interpretation Description Data Sup porting Code Source(s) Document(s ) CALCIUM 8.3 mg/dL 8.5-10.1 Below low normal [facility] ID Date Data Source [id number] 03/12/2020 06:04:00 AM EDT [facility] ospital Name Value Range Interpretation Description Data Sup porting Code Source(s) Document(s ) PHOSPHOROUS 3.6 2.5-4.9 Normal (applies [facility] mg/dL to non-numeric Hospital results) ID Date Data Source [id number] 03/12/2020 06:04:00 AM EDT [facility] ospital Name Value Range Interpretation Description Data Sup porting Code Source(s) Document(s ) MAGNESIUM 2.1 mg/dL 1.8-2.4 Normal (applies [facility] to non-numeric Hospital results) ID Date Data Source [id number] 03/12/2020 06:04:00 AM EDT [facility] ospital Name Value Range Interpretation Description Data Sup porting Code Source(s) Document(s ) ALBUMIN 2.6 gm/dL 3.4-5.0 Below low normal [facility] BILIRUBIN,T 0.2 mg/dL 0.2-1.0 Normal (applies to [facility] non-numeric Hospital results) AST/SGOT 19 U/L 15-37 Normal (applies to [facility] Hospital results) "Assay results affected by Sulfasalazine therapy. If thepatient is taking this drug, please contact the laboratory". ALT/SGPT 13 U/L 16-63 Below low normal [facility] ospital "Assay results affected by Sulfasalazine therapy. If thepatient is taking this drug, please contact the laboratory". ID Date Data Source [id number] 03/12/2020 06:04:00 AM EDT [facility] ospital Name Value Range Interpretation Description Data Sup porting Code Source(s) Document(s ) PREALBUMIN 24.7 18.0-35.7 Normal (applies to [facility] mg/dL1 non-numeric Hospital results) ID Date Data Source [id number] 03/12/2020 06:04:00 AM EDT [facility] ospital Name Value Range Interpretation Description Data Sup porting Code Source(s) Document(s ) ALKALINE 75 u/l 46-116 Normal (applies to [facility] PHOSPHATASE non-numeric Hospital results) ID Date Data Source [id number] 03/12/2020 06:04:00 AM EDT [facility] ospital Name Value Range Interpretation Description Data Sup porting Code Source(s) Document(s ) WHITE BLOOD 5.8 3.5-9.1 Normal (applies [facility] COUNT 10(3)/uL to non-numeric Hospital results) RED BLOOD COUNT 3.03 4.30-5.6 Below low normal [facility] 10(6)/uL 0 Hospital HEMOGLOBIN 8.8 g/dL 13.3-16. Below low normal [address] HEMATOCRIT 28.2 % 38.8-46. Below low normal [address] MEAN 93 fl 79-93 Normal (applies [facility] CORPUSCULAR to non-numeric Hospital VOLUME results) MEAN 29 pg 27-32 Normal (applies [facility] CORPUSCULAR to non-numeric Hospital HEMOGLOBIN results) MEAN 31 g/dl 32-36 Below low normal [facility] CORPUSLAR HGB Hospital CONC RED CELL 17.0 % 0.0-14.5 Above high normal [facility] Hospital WIDTH PLATELET COUNT 217 165-415 Normal (applies [facility] es 10(3)/uL to non-numeric Hospital results) MEAN PLATELET 11.5 fl 9.0-13.0 Normal (applies [facility] s VOLUME to non-numeric Hospital results) NEUTROPHILS % 74.9 % [facility] IMMATURE 0.3 % [facility] GRANULOCYTE % Hospital LYMPH % 9.1 % [facility] MONO % 8.0 % [facility] EOS % 7.0 % [facility] BASO % 0.7 % [facility] NEUTROPHILS # 4.37 1.42-6.3 Normal (applies [facility] s 10(3)/uL 4 to non-numeric Hospital results) IMMATURE 0.02 0.00-0.4 Normal (applies [facility] GRANULOCYTE # 10(3)/uL 5 to non-numeric Hospital results) LYMPH # 0.53 0.71-4.5 Below low normal [facility] 10(3)/uL 3 Hospital MONO # 0.47 0.14-0.7 Normal (applies [facility] 10(3)/uL 2 to non-numeric Hospital results) EOS # 0.41 0.00-0.5 Normal (applies Ar[facility] 10(3)/uL 4 to non-numeric Hospital results) BASO # 0.04 0.00-0.1 Normal (applies [facility] 10(3)/uL 8 to non-numeric Hospital results) ID Date Data Source [id number] 03/11/2020 03:00:00 PM EDT [facility] ospital What is the Source CLEAN CATCHIndication s for Urine Screen Leukocytosis What is the Source CLEAN CATCHIndication s for Urine Screen Leukocytosis Name Value Range Interpretation Description Data Sup porting Code Source(s) Document(s ) COLOR, URINE YELLOW STRAW [facility] APPEARANCE, CLOUDY CLEAR [facility] GLUCOSE, NEG NEG [facility] URINE (UA) Hospital BILIRUBIN, NEG NEG [facility] KETONE, URINE NEG NEG [facility] UROBILINOGEN, 1.0 EU/dL 0.0-0.[address] [facility] URINE Hospital SPECIFIC 1.010 1.001-1. Normal (applies [facility] GRAVITY,URINE 035 to [facility] Hospital results) OCCULT BLOOD 3+ NEG Abnormal (applies [facility] URINE to [facility] Hospital results) PH Urine 8.0 U 4.6-8.0 Normal (applies [facility] to [facility] Hospital results) PROTEIN, 1+ NEG Abnormal (applies [facility] URINE to [facility] Hospital results) NITRITE, NEG NEG [facility] URINE Hospital URINE NEG NEG [facility] LEUKOCYTE Hospital ESTERASE ID Date Data Source [id number] 03/11/2020 03:00:00 PM EDT [facility] ospital What is the Source CLEAN CATCHIndication s for Urine Screen Leukocytosis What is the Source CLEAN CATCHIndication s for Urine Screen Leukocytosis Name Value Range Interpretation Description Data Sup porting Code Source(s) Document(s ) RBC, URINE TNTC /HPF 0-3 [facility] WBC, URINE 5-10 /HPF 0-5 [facility] BACTERIA, FEW /HPF RARE-FEW [facility] URINE Hospital AMORPHOUS MANY RARE-FEW [facility], Hospital URINE ID Date Data Source [id number] 03/11/2020 01:51:00 PM EDT [facility] SPOKE TO SAM NELSON COURTNEY LUNDBERG @ 710READ BACK AND VERIFIEDResult Reference RangeNot Detected Not DetectedNOTE: Please consider re-collection of a new specimen, asclini risa indicated.NOTE: The COVID-19 assay has been cleared by the U.S. Foodand Drug Ad ministration under the Emergency UseAuthorization (EUA). [employer] Groupjefferson abington hospitalQualiLife [facility] oratories is designatedas a high complexity laboratory by the Clinical LaboratoryImp rovement Amendments of 1988(CLIA) and is qualified toperform this test. ASSAY INF ORMATION: Real Time RT-PCRPerformed by:[facility], [facility] Edw [place], [place] [id number] Anson Reyes M.D.[employer] Teacher Name Value Range Interpretation Code Description Data Annabelle rce(s) Supporting Document(s ) ID Date Data Source [id number] 03/11/2020 01:02:00 PM EDT [facility] [address] [place] [address] [id number] Director: Chata Patel M.D.MRSANO MRSA ISOLATED Name Value Range Interpretation Code Description Data Annabelle rce(s) Supporting Document(s ) ID Date Data Source [id number] 03/11/2020 01:02:00 PM EDT [facility] [address] [place] [address] [id number] Director: Chata Patel M.D.CALLED MOHAN AKHTAR/COURTNEY LUNDBERG @[id number] (E faecium)(Positive for Vancom ycin-Resistant Enterococcus faecium)R/O VREVRE ISOLATEDRBVREAD BACK AND VERIFIED Name Value Range Interpretation Code Description Data Annabelle rce(s) Supporting Document(s ) ID Date Data Source [id number] 03/11/2020 12:00:00 AM EDT [facility] Name Value Range Interpretation Code Description Data Annabelle rce(s) Supporting Document(s ) 2019-nCoV [facility] RNA XXX BENITO+probe- Imp This lab was ordered by ARINA LEIV[facility] and reported by [employer]. ID Date Data Source [id number] 01/26/2020 10:40:00 AM EDT [facility] Name Value Range Interpretation Description Data Sup porting Code Source(s) Document(s ) 2018 Novel [facility] Coronavirus RNA Interpretation Unspecified Specimen Qualitative BENITO Probe Detection This lab was ordered by [place] and rep orted by [facility]. ID Date Data Source [id number] 01/14/2020 09:00:00 AM EDT [facility] Name Value Range Interpretation Description Data Sup porting Code Source(s) Document(s ) 2018 Novel [facility] Coronavirus RNA Interpretation Unspecified Specimen Qualitative BENITO Probe Detection This lab was ordered by [place] and rep orted by [facility]. Procedure Social History Code Duration Value Status Description Data Source(s ) Alcohol intake 03/16/2020 Ex-drinker completed Ex-drinker [place] [facility] 12:00:00 AM EDT (finding) (finding) [facility] [employer] [facility] Smoking 03/16/2020 Former smoker completed Former smoker [facility] 12:00:00 AM EDT [facility] [employer] [facility] Smoking Unknown if completed Unknown if ever [place] [facility] ever smoked smoked Hospital Vital Signs ID Date Data Source UNK Name Value Range Interpretation Code Description Data Source(s) Oxygen saturation 96 % 96 % Peter osorio in Arterial blood Juliana [employer] by [employer] Heart rate 107 /min 107 /min [facility] [email or web address] [facility] Respiratory rate 22 /min 22 /min [facility] [email or web address] [facility] Body temperature 36.56 Fabiola 36.56 Fabiola [facility] [email or web address] [facility] Diastolic blood 92 mm[Hg] 92 mm[Hg] [facility] pressure [email or web address] [facility] Systolic blood 155 mm[Hg] 155 mm[Hg] [place] [facility] pressure [email or web address] [facility] Body mass index 29.90 kg/m2 29.90 kg/m2 Peter Carmen ours (BMI) [Ratio] [facility] Body weight 86.6 kg 86.6 kg [facility] height 170.2 cm 170.2 cm [facility] ID Date Data Source [id number] 04/30/2020 02:20:00 PM EDT [facility]ital Name Value Range Interpretation Code Description Data Source(s) HEIGHT 172.72 cm 172.72 cm [facility] WEIGHT 85.710983 kg 85.769255 kg [facility] HEIGHT 172.72 cm 172.72 cm [facility] WEIGHT 85.895960 kg 85.860777 kg [facility] HEIGHT 172.72 cm 172.72 cm [facility] WEIGHT 87.592982 kg 87.995262 kg [facility] HEIGHT 172.72 cm 172.72 cm [facility] WEIGHT 87.170267 kg 87.666757 kg [facility] HEIGHT 172.72 cm 172.72 cm [facility] WEIGHT 87.374616 kg 87.348535 kg [facility] HEIGHT 172.72 cm 172.72 cm [facility] WEIGHT 86.725671 kg 86.854079 kg [facility] HEIGHT 172.72 cm 172.72 cm [facility] WEIGHT 178 kg 178 kg [facility] ID Date Data Source [id number] 03/21/2020 03:44:00 PM EDT [facility] ospital Name Value Range Interpretation Code Description Data Source(s) HEIGHT 172.72 cm 172.72 cm [facility] WEIGHT 77.916432 kg 77.643536 kg [facility] HEIGHT 172.72 cm 172.72 cm [facility] WEIGHT 77.492716 kg 77.543609 kg [facility] HEIGHT 172.72 cm 172.72 cm [facility] WEIGHT 88 kg 88 kg [facility] Patient Treatment Plan of Care Planned Activity Planned Date Details Description Data Source (s) cefTRIAXone 2 gram 2 g IVPB 03/20/2020 [facility] 12:00:00 AM EDT [employer] [facility] pantoprazole 4 mg/mL in 0.9% 03/20/2020 [facility] sodium chloride injection 12:00:00 AM EDT Health [...] [facility] Injectable Solution 06:00:00 PM EDT [facility] [facility] doxycycline 100 mg 100 mg 03/19/2020 [facility] 12:00:00 AM EDT [facility] ondansetron (ZOFRAN) 4 mg/2 03/19/2020 [facility] mL soln 12:00:00 AM EDT [facility] Hydrocortisone 50 MG/ML 03/19/2020 [facility] Injectable Solution 12:00:00 AM EDT [facility] doxycycline 100 mg 100 mg 03/19/2020 [facility] 12:00:00 AM EDT [facility] tramadol hydrochloride 50 MG 03/19/2020 [facility] Oral Tablet 12:00:00 AM EDT [facility] 0.4 ML Enoxaparin sodium 100 03/19/2020 [facility] MG/ML Prefilled Syringe 12:00:00 AM EDT [facility] Alprazolam 0.25 MG Oral 03/19/2020 [facility] Tablet 12:00:00 AM EDT [facility] Acetaminophen 32 MG/ML Oral 03/19/2020 [facility] Solution 12:00:00 AM EDT [facility] vits A and D-white 03/18/2020 [facility] [place] pet-lanolin (A&D) ointment 02:29:41 PM EDT [facility] ondansetron (ZOFRAN) 03/13/2020 [facility] [place] injection 4 mg 01:31:49 PM EDT [facility] sodium chloride (NS) flush 03/13/2020 [facility] 5-10 mL 01:24:19 PM EDT [facility] POLYETHYLENE GLYCOL [id number] 04/02/2018 [place] MG/ML Oral Solution 12:00:00 AM EDT Hospi manju [HealthyLax] Docusate Sodium 100 MG Oral 04/02/2018 [place] Capsule 12:00:00 AM EDT Hospital Prednisone (Prednisone 11/29/2017 [place] Tablet*) 10 Mg Tab, 10 Mg 12:00:00 AM [facility] Hospital Oral Levofloxacin 250 MG Oral 11/06/2017 [facility] [place] Tablet [Levaquin] 12:00:00 AM EST Hospita l Acetaminophen 325 MG / 10/01/2017 [place] Oxycodone Hydrochloride 5 MG 12:00:00 AM [facility] Oral Tablet Docusate Sodium 100 MG Oral 10/01/2017 [place] Capsule [DOK] 12:00:00 AM [facility] Acetaminophen 325 MG Oral [facility] Tablet Health System I nc tramadol hydrochloride 50 MG Bon [employer] Juliana Oral Tablet Health System I nc Alprazolam 0.25 MG Oral [facility] Tablet Health System I nc FLUTICASONE PROPIONATE IN Jesus n [facility] System I nc potassium bicarbonate 20 MEQ Bon [facility] Effervescent Oral Tablet [facility] Inc 0.4 ML Enoxaparin sodium 100 [facility] MG/ML Prefilled Syringe Heal System Inc Bisacodyl 5 MG Delayed Bon [facility] Release Oral Tablet Health S te Inc atorvastatin 40 MG Oral Bon [facility] I nc Aspirin 325 MG Oral Tablet B on [facility] System I nc ALBUTEROL IN Bon [facility] System I nc Ergocalciferol 98742 UNT Oral Bon [facility] Capsule Health System I nc SENNA Bon [facility] System I nc POLYETHYLENE GLYCOL 3350 142 [facility] MG/ML Oral Solution Health S yste Inc Nystatin 142432 UNT/ML [facility] [place] Topical Cream [facility] multivitamin (ONE A DAY) Bon [facility] tablet Health System I nc DOCUSATE SODIUM-BENZOCAINE RE [facility] System I nc Docusate Sodium 100 MG Oral Bon [facility] [place] Capsule Health System I nc chlorhexidine gluconate 1.2 [facility] MG/ML [place] [facility] Ascorbic Acid 500 MG Oral [facility] Tablet Health System I nc Doxazosin 1 MG Oral Tablet B on [facility] I nc Losartan Potassium 100 MG [facility] Oral Tablet [facility] I nc sennosides, LONGTERM 17.2 MG Oral Bon [facility] Tablet [facility] I nc Melatonin 5 MG Oral Capsule [facility] I nc Levothyroxine Sodium 0.2 MG Bon [facility] Oral Tablet [facility] I nc gabapentin 100 MG Oral Bon [facility] Capsule [facility] I nc Famotidine 20 MG Oral Tablet Bon [facility] I nc Escitalopram 10 MG Oral [facility] Tablet [facility] I nc Amlodipine 10 MG Oral Tablet Bon [facility] I nc Vitamin E (Vitamin E 400 [facility] [place] Units Cap*) 400 Unit Cap, 400 Hospital Unit Oral Selenomethionine (Selenium) [place] 200 Mcg Tablet, 200 Mcg Oral Hospital Multivitamins (Hexavitamin W tabitha [place] Tablet*) 1 Each Tablet, 1 Tab Hospital Oral Losartan Potassium 100 MG [facility] [place] Oral Tablet [Cozaar] Hospita l Losartan Potassium 50 MG Oral [place] Tablet [Cozaar] [facility] Levothyroxine Sodium 0.1 MG [place] Oral Tablet [Synthroid] [facility] ital Hydrochlorothiazide 12.5 MG [place] Oral Capsule [facility] Hctz/Losartan Potassium Whit e [place] (Hyzaar 100-25 Tablet*) 1 Tab Hospital Tablet, 1 Tab Oral Atenolol (Tenormin*) 25 Mg W tabitha [place] Tab, 25 Mg Oral Hospital Aspirin (Aspirin Enteric [facility] [place] Coated*) 81 Mg Tabec, 81 Mg Hospital Oral Ascorbic Acid (Vitamin C [facility] [place] 500MG Tablet*) 500 Mg Tab, H ospital 500 Mg Oral Probiotic [facility] Nifedipine (Nifedipine Xl) 30 [place] Mg Tab.er.24 Hospital Multivitamins (Tab-A-Anais Wh ite [place] Tab*) 1 Each Tablet [facility] Multivitamins 1 Each Capsule [facility] Levothyroxine Sodium 0.2 MG [place] Oral Tablet [Synthroid] Hosp ital ferrous sulfate 325 MG [place] Delayed Release Oral Tablet [facility] Citalopram 20 MG Oral Tablet [facility] Atorvastatin Calcium [place] (Lipitor*) 40 Mg Tab Hospita l Aspirin Buffered (Aspirin Wh ite [place] Buffered Tablet*) 325 Mg Hos pital Tablet
--- NOTE | 2020-07-27 18:50 | PN ---
Teaching Attending Note Name of Resident: Adrienne Morin ATTENDING PHYSICIAN STATEMENT I saw and evaluated the patient. I reviewed the resident's note and discussed the case with the resident. I agree with the resident's findings and plan as documented. SUBJECTIVE: pt seen and examined at bedside OBJECTIVE: Last Vital Signs Temp Pulse Resp BP Pulse Ox 98.1 F 60 20 111/53 L 97 07/27/20 11:47 07/27/20 17:24 07/27/20 15:45 07/27/20 15:45 07/27/20 17:24 GENERAL: somnolent, open eye to voice, in no acute distress. HEENT: AT/NC, not P/c/j, trach in place LUNGS: Breath sounds equal, clear to auscultation bilaterally. No wheezes, and no crackles. No accessory muscle use. HEART: Regular rate and rhythm, normal S1 and S2 ABDOMEN: Soft, nontender, not distended UPPER EXTREMITIES: 2+ pulses, warm, well-perfused. No cyanosis. No clubbing. No peripheral edema. LOWER EXTREMITIES: 2+ pulses, warm, well-perfused. No calf tenderness. + edema. NEUROLOGICAL: not cooperative with neuro exam\ CBCD WBC 8.1 K/mm3 (4.0-10.0) 07/27/20 15:30 RBC 3.20 M/mm3 (4.00-5.60) L 07/27/20 15:30 Hgb 9.1 GM/dL (11.7-16.9) L 07/27/20 15:30 Hct 26.7 % (35.4-49) L 07/27/20 15:30 MCV 83.5 fl (80-96) 07/27/20 15:30 MCHC 34.0 g/dl (32.0-35.9) 07/27/20 15:30 RDW 16.0 % (11.9-15.9) H 07/27/20 15:30 Plt Count 284 K/MM3 (134-434) 07/27/20 15:30 MPV 8.0 fl (7.5-11.1) 07/27/20 15:30 CMP Sodium 124 mmol/L (136-145) L 07/27/20 15:30 Potassium 3.9 mmol/L (3.5-5.1) 07/27/20 15:30 Chloride 87 mmol/L (98-107) L 07/27/20 15:30 Carbon Dioxide 30 mmol/L (21-32) 07/27/20 15:30 Anion Gap 7 MMOL/L (8-16) L 07/27/20 15:30 BUN 19.0 mg/dL (7-18) H 07/27/20 15:30 Creatinine 0.7 mg/dL (0.55-1.3) 07/27/20 15:30 Random Glucose 84 mg/dL (74-106) 07/27/20 15:30 Calcium 8.4 mg/dL (8.5-10.1) L 07/27/20 15:30 Total Bilirubin 0.4 mg/dL (0.2-1) 07/27/20 15:30 AST 27 U/L (15-37) 07/27/20 15:30 ALT 8 U/L (13-61) L 07/27/20 15:30 Alkaline Phosphatase 65 U/L (45-117) 07/27/20 15:30 Total Protein 7.2 g/dl (6.4-8.2) 07/27/20 15:30 Albumin 2.4 g/dl (3.4-5.0) L 07/27/20 15:30 CARDIAC ENZYMES Troponin I < 0.02 ng/ml (0.00-0.05) 07/27/20 15:30 Home Medications Medication Instructions Recorded Aspirin [ASA -] 325 mg PO DAILY 01/07/18 Atorvastatin Ca [Lipitor] 20 mg PO HS 01/07/18 Citalopram Hydrobromide 20 mg PO DAILY 01/07/18 [Citalopram HBr] Lactobacillus Acidophilus 1 each PO DAILY 01/07/18 [Probiotic] Levothyroxine [Synthroid -] 175 mcg PO DAILY 01/07/18 Nifedipine [Nifedipine ER] 30 mg PO DAILY 01/07/18 Lactose-Reduced Food/Fiber [Jevity 237 ml GT 07/27/20 1.5 Cornelius Liquid] ASSESSMENT AND PLAN: 75 YO Man w/hx of tracheostomy, HTN, stroke 6 months ago with residual R sided weakness brought in to ED after he began to desaturate at home and had AMS # Delirium causes: hypotonic hypovolemic hyponatremia (SIADH?), desaturation (mucus plug suctioned en route) will order CT head Na 124 calculated Osm 259, Cl 87 obtain urine electrolytes, UA, measured OSM Obtain ABG, Bicarb 30 likely chronic retaining Euvolemic at this time Start NS at 100cc/Hr, recheck CMP in 4-6Hr avoid correcting Na more than 8mmol/day neurocheck I/O tele case discussed with consult Nephrology consult appreciated Keg Raiser consult HTN CVA anemia DVT prophylaxis
--- NOTE | 2020-07-27 19:07 | HP ---
CHIEF COMPLAINT: hypoxia PCP: Dr. 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 During examination, patient was very lethargic, seldom answers yes or no to questions, left for home, history taken from ED staff and patient's chart. Patient lives at home with who takes care of him. He is known to have frequent hospitalizations at [facility] for pneumonia where he is usually treated with IV antibiotics. Today, patient was found to be hypoxic at home, saturating at the 80s and noted to be less arousable. As per , patient's baseline is awake, alert and responsive, as of yesterday. She immediately called 911. En route to the hospital, the EMS suctioned that patient and saturation improved to >95% and patient became more alert. Throughout the day, patient's mental status noted to change again, and on interview in the evening, patient was very somnolent. Patient's reports noting increased secretions, without fevers or change in color or consistency of sputum. No diarrhea or urinary symptoms. ER course was notable for: (1)albuterol nebs, IV vanc/zosyn x1 (2)Na 124 (3) Recent Travel: denies PAST MEDICAL HISTORY: head/neck cancer s/p tracheostomy HTN recent CVA with residual right sided weakness PAST SURGICAL HISTORY: Social History: Smoking:denies Alcohol:denies Drugs: denies Allergies Penicillins Allergy (Verified 07/27/20 11:46) HOME MEDICATIONS: Home Medications Medication Instructions Recorded Aspirin [ASA -] 325 mg PO DAILY 01/07/18 Atorvastatin Ca [Lipitor] 20 mg PO HS 01/07/18 Citalopram Hydrobromide 20 mg PO DAILY 01/07/18 [Citalopram HBr] Lactobacillus Acidophilus 1 each PO DAILY 01/07/18 [Probiotic] Levothyroxine [Synthroid -] 175 mcg PO DAILY 01/07/18 Nifedipine [Nifedipine ER] 30 mg PO DAILY 01/07/18 Lactose-Reduced Food/Fiber [Jevity 237 ml GT 07/27/20 1.5 Cornelius Liquid] REVIEW OF SYSTEMS CONSTITUTIONAL: Absent: fever, chills, diaphoresis, generalized weakness, malaise, loss of appetite, weight change HEENT: Absent: rhinorrhea, nasal congestion, throat pain, throat swelling, difficulty swallowing, mouth swelling, ear pain, eye pain, visual changes CARDIOVASCULAR: Absent: chest pain, syncope, palpitations, irregular heart rate, lightheadedness, peripheral edema RESPIRATORY: Absent: cough, shortness of breath, dyspnea with exertion, orthopnea, wheezing, stridor, hemoptysis GASTROINTESTINAL: Absent: abdominal pain, abdominal distension, nausea, vomiting, diarrhea, constipation, melena, hematochezia GENITOURINARY: Absent: dysuria, frequency, urgency, hesitancy, hematuria, flank pain, genital pain MUSCULOSKELETAL: Absent: myalgia, arthralgia, joint swelling, back pain, neck pain SKIN: Absent: rash, itching, pallor HEMATOLOGIC/IMMUNOLOGIC: Absent: easy bleeding, easy bruising, lymphadenopathy, frequent infections ENDOCRINE: Absent: unexplained weight gain, unexplained weight loss, heat intolerance, cold intolerance NEUROLOGIC: mental status changes Absent: headache, focal weakness or paresthesias, dizziness, unsteady gait, seizure, bladder or bowel incontinence PSYCHIATRIC: Absent: anxiety, depression, suicidal or homicidal ideation, hallucinations. PHYSICAL EXAMINATION Vital Signs - 24 hr 07/27/20 07/27/20 07/27/20 11:47 12:14 12:15 Temperature 98.1 F Pulse Rate 69 68 Pulse Rate [ 68 Right] Respiratory 18 21 H Rate Blood Pressure 198/83 H Blood Pressure 142/84 [Left Arm] O2 Sat by Pulse 91 L 95 95 Oximetry (%) 07/27/20 07/27/20 15:45 17:24 Temperature Pulse Rate 60 Pulse Rate [ 60 Right] Respiratory 20 Rate Blood Pressure Blood Pressure 111/53 L [Left Arm] O2 Sat by Pulse 100 97 Oximetry (%) GENERAL: somnolent, arousable to touch and voice, in no acute distress. HEAD: Normal with no signs of trauma. EYES: PERRLA, EOMI, sclera anicteric, conjunctiva clear. NECK: Supple. Trach in place LUNGS: Decreased breath sounds on bilateral bases HEART: Regular rate and rhythm, normal S1 and S2 ABDOMEN: Soft, nontender, not distended, normoactive bowel sounds. G tube in place c/d/i LOWER EXTREMITIES: 2+ pulses, warm, well-perfused. Trace peripheral edema. NEUROLOGICAL: Lethargic, nods head to answer yes/no questions SKIN: Warm, dry, normal turgor Laboratory Results - last 24 hr 07/27/20 07/27/20 15:30 15:30 WBC 8.1 RBC 3.20 L Hgb 9.1 L Hct 26.7 L MCV 83.5 MCH 28.4 MCHC 34.0 RDW 16.0 H Plt Count 284 MPV 8.0 Absolute Neuts (auto) 5.4 Neutrophils % 67.4 Neutrophils % (Manual) 69.9 Band Neutrophils % 0.0 Lymphocytes % 7.5 L Lymphocytes % (Manual) 6.5 L Monocytes % 20.8 H Monocytes % (Manual) 22 H Eosinophils % 3.2 Eosinophils % (Manual) 2.1 Basophils % 1.1 Basophils % (Manual) 0.0 Myelocytes % (Man) 0 Promyelocytes % (Man) 0 Blast Cells % (Manual) 0 Nucleated RBC % 0 Metamyelocytes 0 Sodium 124 L Potassium 3.9 Chloride 87 L Carbon Dioxide 30 Anion Gap 7 L BUN 19.0 H Creatinine 0.7 Est GFR (CKD-EPI)AfAm 105.50 Est GFR (CKD-EPI)NonAf 91.03 Random Glucose 84 Calcium 8.4 L Total Bilirubin 0.4 AST 27 ALT 8 L Alkaline Phosphatase 65 Troponin I < 0.02 Total Protein 7.2 Albumin 2.4 L ASSESSMENT/PLAN: Patient is a 75 year old male with past medical history of head/neck cancer s/p tracheostomy, HTN, 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 #Acute metabolic encephalopathy -possibly 2/2 hyponatremia, hypoxia -Head CT ordered -UA pending -Nephrology (Dr. Dewitt) consulted. REcs appreciated. -Iv NS @100cc/hr -monitor sodium levels q4, avoid correcting Na to more than 8mmol/day -obtain urine electrolytes, UA, measured OSM -Obtain ABG, Bicarb 30 likely chronic retaining -neurochecks -I&O #Hypoxia likely 2/2 mucus plug, on tracheostomy -CXR showed atelectasis, no evidence of pneumonia -frequent suctioning -pulm consulted. #Anemia -no evidence of gross bleeding, unclear baseline -will order basic anemia work up iron studies, retic count, stool occult #HTN -will need to confirm home meds, [facility] pharmacy closed, will try to call again to confirm #FEN -IV NS @100cc/hr -hyponatremia, routine bmp monitoring -tube feeding #Prophylaxis -Lovenox 40mg sq daily #Disposition -med surg, on trach floor Family Medical History Family History: As Documented Visit type - Medication Review Med list reviewed for High Risk Meds patients 65 and older: Yes - Emergency Visit Emergency Visit: Yes ED Registration Date: 07/27/20 Care time: The patient presented to the Emergency Department on the above date and was hospitalized for further evaluation of their emergent condition. - New Patient This patient is new to me today: Yes Date on this admission: 07/27/20 - Critical Care Critical Care patient: No ATTENDING PHYSICIAN STATEMENT I saw and evaluated the patient. I reviewed the resident's note and discussed the case with the resident. I agree with the resident's findings and plan as documented. SUBJECTIVE: OBJECTIVE: ASSESSMENT AND PLAN:
[2020-07-27 21:45] LABS: ARTERIAL BLOOD GAS BASE EXCESS 3.8 mmol/L (-2-2); ARTERIAL BLOOD GAS PO2 70.4 mmHg (80-100); ARTERIAL BLOOD GAS pH 7.461 (7.350-7.450)
[2020-07-27 21:47] LABS: VENT RATE 20
[2020-07-28 04:42] LABS: EOS % 3.9 % (0-4.5); HEMATOCRIT 26.4 % (35.4-49); LYMPH % 5.1 % (8-40); MCHC 33.9 g/dl (32.0-35.9); MEAN CELL VOLUME 82.4 fl (80-96); MEAN PLT VOLUME 7.6 fl (7.5-11.1); PLATELET COUNT 279 K/MM3 (134-434); RDW 15.9 % (11.9-15.9); RETICULOCYTES 2.78 % (0.5-1.5); WHITE BLOOD COUNT 7.7 K/mm3 (4.0-10.0)
[2020-07-28] MEDS: SODIUM CHLORIDE 1,000 ML IV SCH ×2 (04:55→19:41)
[2020-07-28 05:10] LABS: ALBUMIN 2.3 g/dl (3.4-5.0); BILIRUBIN,TOTAL 0.5 mg/dL (0.2-1); BLOOD UREA NITROGEN 15.3 mg/dL (7-18); CALCIUM 8.6 mg/dL (8.5-10.1); CREATININE 0.6 mg/dL (0.55-1.3); TOT PROT 6.9 g/dl (6.4-8.2)
[2020-07-28 05:18] LABS: EPI CELLS 7 /uL (0-25.1); HYALINE CASTS 0 /uL (0-3.1); PH,URINE 8.5 (5.0-8.0); URINE APPEARANCE CLEAR; URINE BACTERIA 40 /uL (0-1359); URINE BILIRUBIN NEGATIVE (NEGATIVE); URINE COLOR YELLOW; URINE GLUCOSE (UA) NEGATIVE (NEGATIVE); URINE KETONE NEGATIVE (NEGATIVE); URINE LEUK ESTERASE TRACE (NEGATIVE); URINE NITRITE NEGATIVE (NEGATIVE); URINE PROTEIN TRACE (NEGATIVE); URINE RBC 285 /uL (0-23.9); URINE WBC 49 /uL (0-25.8)
[2020-07-28 05:36] LABS: OSMOLALITY,SERUM 259 mosm/kg (278-305)
[2020-07-28] MEDS: ALBUTEROL SO4 HFA INHALER IH SCH ×4 (06:46→22:33)
[2020-07-28] MEDS ORDERED: PANTOPRAZOLE 40 MG TABLET PO SCH (07:00)
[2020-07-28] MEDS ORDERED: LEVOTHYROXINE NA 100 MCG TABLET (FP) PO SCH (07:00)
[2020-07-28] MEDS ORDERED: FAMOTIDINE 40 MG/5 ML ORAL SUSPENSION PO SCH (09:00)
--- NOTE | 2020-07-28 09:47 | CON.NEP ---
Consult Consult Specialty:: nephrology - History of Present Illness Chief Complaint: lethargy History of Present Illness: Patient is a 75 year old male with past medical history of head/neck cancer s/p tracheostomy, HTN, 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 During examination, patient was very lethargic, seldom answers yes or no to questions, left for home, history taken from ED staff and patient's chart. Patient lives at home with who takes care of him. He is known to have frequent hospitalizations at [facility] for pneumonia where he is usually treated with IV antibiotics. Today, patient was found to be hypoxic at home, saturating at the 80s and noted to be less arousable. As per , patient's baseline is awake, alert and responsive, as of yesterday. She immediately called 911. En route to the hospital, the EMS suctioned that patient and saturation improved to >95% and patient became more alert. Throughout the day, patient's mental status noted to change again, and on interview in the evening, patient was very somnolent. Patient's reports noting increased secretions, without fevers or change in color or consistency of sputum. No diarrhea or urinary symptoms. He is hyponatremic. So nephrology is called. Denies recent illness. No nausea or vomiting. No diarrhea. He was given saline but also antibiotics in d5w - History Source History Provided By: Medical Record - Past Medical History Pulmonary: Yes: Other (trach) Heme/Onc: Yes: Cancer - Smoking History Smoking history: Never smoked Have you smoked in the past 12 months: No Home Medications - Allergies Allergies/Adverse Reactions: Allergies Allergy/AdvReac Type Severity Reaction Status Date / Time Penicillins Allergy Verified 07/27/20 11:46 - Home Medications Home Medications: Ambulatory Orders Albuterol Sulfate Inhaler - [Ventolin HFA Inhaler -] 2 puff IH Q6H 07/28/20 Amlodipine Besylate 5 mg GT DAILY 07/28/20 Atorvastatin Ca [Lipitor] 40 mg GT HS 07/28/20 Escitalopram Oxalate [Lexapro -] 10 mg GT DAILY 07/28/20 Fluticasone Furoate [Arnuity Ellipta] 1 spray IH BID 07/28/20 Gabapentin [Neurontin -] 200 mg GT TID 07/28/20 Gabapentin [Neurontin] 200 mg GT TID 07/28/20 Levothyroxine Sodium [Synthroid] 200 mcg GT DAILY 07/28/20 Losartan Potassium 100 mg GT DAILY 07/28/20 Omeprazole 30 mg GT DAILY 07/28/20 Silodosin [Rapaflo] 8 mg GT DAILY 07/28/20 Review of Systems Unable to obtain ROS, reason: ms changes Nephrology Consult - Height Height: 5 ft 7 in - Weight Weight: 170 lb - BMI Body Mass Index (BMI): 26.6 - Lab Results CBC,BMP: CBC, BMP 07/28/20 04:00 07/28/20 04:00 Anion Gap: Anion Gap Anion Gap 8 MMOL/L (8-16) 07/28/20 04:00 - Imaging X-ray: Report Reviewed (no acute finding) - Physical Examination Vital Signs: Vital Signs Temperature 99.0 F 07/28/20 06:00 Pulse Rate 64 07/28/20 08:03 Respiratory Rate 07/28/20 07:27 Blood Pressure 133/66 07/28/20 07:27 O2 Sat by Pulse Oximetry (%) 98 07/28/20 08:03 Constitutional: Yes: Well Nourished, No Distress, Calm Eyes: Yes: WNL HENT: Yes: Other (trach) Neck: Yes: Supple, Trachea Midline Cardiovascular: Yes: Regular Rate and Rhythm Respiratory: Yes: Regular, CTA Bilaterally Gastrointestinal: Yes: Normal Bowel Sounds Renal/: Yes: WNL Musculoskeletal: Yes: WNL Extremities: Yes: WNL Edema: Yes Edema: LLE: 1+, RLE: 1+ Neurological: Yes: Alert, Oriented Psychiatric: Yes: Alert, Oriented Assessment/Plan IMPRESSION MS changes possibly due to hypercapnea which improved prior to arrival to ED hyponatremia likely due to decreased intake of solute abg is suggestive of alkalosis which is likely posthypercapneic since he had a mucus plug urine chloride is low- chloride responsive PLAN continue saline minimize water intake by reducing d5w infusions in abx tsh, cortisol repeat BMP if becomes increasingly edematous might benefit from diamox MV
[2020-07-28] MEDS ORDERED: OMEPRAZOLE 30 MG GT SCH (10:00)
[2020-07-28] MEDS ORDERED: PATIENT'S OWN MEDICATION (NON-FORMULARY) (Silodosin [Rapaflo] 8 MG) GT SCH (10:00)
[2020-07-28] MEDS ORDERED: PATIENT'S OWN MEDICATION (NON-FORMULARY) (Losartan Potassium [Losartan Potassium] 100 MG) GT SCH (10:00)
[2020-07-28] MEDS ORDERED: LOSARTAN POTASSIUM 50 MG TABLET PO SCH (10:00)
[2020-07-28] MEDS ORDERED: FLUTICASONE FUROATE IH SCH (10:00)
[2020-07-28] MEDS: FAMOTIDINE 40 MG/5 ML ORAL SUSPENSION NGT SCH ×2 (11:08→22:34)
[2020-07-28] MEDS: ENOXAPARIN NA (PORCINE) 40 MG/0.4 ML DISP.SYRIN SQ SCH (11:08)
[2020-07-28] MEDS: amLODIPine BESYLATE 5 MG TABLET (FP) GT SCH (11:08)
--- NOTE | 2020-07-28 11:36 | CON.PULM ---
Consult Consult Specialty:: PULMONARY Referred by:: Dr Priest Reason for Consultation:: hypoxia - History of Present Illness Chief Complaint: altered mental status History of Present Illness: 75yo male with h/o HTN, hyperlipidemia, hypothyoridism, head/neck cancer s/p tracheostomy December 2018, h/o CVA who was admitted for lethargy and hypoxia. Noted to be saturating in 80s, which improved with suctioning by EMS to 95%. Currently pt denies shortness of breath, cough or wheezing. No chest pain or discomfort. No fevers, chills ro sweats. He does his own suctioning at home. - History Source History Provided By: Patient, Medical Record Limitations to Obtaining History: No Limitations - Past Medical History Pulmonary: Yes: Other (trach) - Smoking History Smoking history: Never smoked Have you smoked in the past 12 months: No Home Medications - Allergies Allergies/Adverse Reactions: Allergies Allergy/AdvReac Type Severity Reaction Status Date / Time Penicillins Allergy Verified 07/27/20 11:46 - Home Medications Home Medications: Ambulatory Orders Albuterol Sulfate Inhaler - [Ventolin HFA Inhaler -] 2 puff IH Q6H 07/28/20 Amlodipine Besylate 5 mg GT DAILY 07/28/20 Atorvastatin Ca [Lipitor] 40 mg GT HS 07/28/20 Escitalopram Oxalate [Lexapro -] 10 mg GT DAILY 07/28/20 Fluticasone Furoate [Arnuity Ellipta] 1 spray IH BID 07/28/20 Gabapentin [Neurontin -] 200 mg GT TID 07/28/20 Gabapentin [Neurontin] 200 mg GT TID 07/28/20 Levothyroxine Sodium [Synthroid] 200 mcg GT DAILY 07/28/20 Losartan Potassium 100 mg GT DAILY 07/28/20 Omeprazole 30 mg GT DAILY 07/28/20 Silodosin [Rapaflo] 8 mg GT DAILY 07/28/20 Review of Systems - Review of Systems Constitutional: denies: Chills, Fever Eyes: denies: Recent Change in Vision HENT: denies: Nasal Congestion, Throat Pain Neck: denies: Stiffness, Tenderness Cardiovascular: denies: Chest Pain, Shortness of Breath Respiratory: denies: Cough, Hemoptysis, SOB on Exertion, Wheezing Gastrointestinal: denies: Abdominal Pain, Nausea, Vomiting Genitourinary: denies: Dysuria, Hematuria Neurological: denies: Dizziness, Headache Endocrine: denies: Unexplained Weight Loss Physical Exam Vital Sings: Vital Signs Temperature 99.0 F 07/28/20 06:00 Pulse Rate 64 07/28/20 08:03 Respiratory Rate 20 07/28/20 07:27 Blood Pressure 133/66 07/28/20 07:27 O2 Sat by Pulse Oximetry (%) 98 07/28/20 08:03 Constitutional: Yes: Calm Eyes: Yes: Conjunctiva Clear, EOM Intact HENT: Yes: Atraumatic, Normocephalic Neck: Yes: Supple, Trachea Midline Cardiovascular: Yes: Regular Rate and Rhythm Respiratory: Yes: Diminished (at bases) ...Clubbing: No Gastrointestinal: Yes: Normal Bowel Sounds, Soft. No: Tenderness Edema: No Labs: CBC, BMP 07/28/20 04:00 07/28/20 04:00 ABG Results ABG pH 7.461 (7.350-7.450) H 07/27/20 21:20 ABG HCO3 27.8 mmol/L (22-27) H 07/27/20 21:20 ABG O2 Sat (Measured) 95.0 mmHg (95-98) 07/27/20 21:20 ABG O2 Content No Result Required. 07/27/20 21:20 ABG Base Excess 3.8 mmol/L (-2-2) H 07/27/20 21:20 Imaging - Results Chest X-ray: Report Reviewed, Image Reviewed (no infiltrates) Assessment/Plan Altered Mental Status improved Likely Mucous Plug Hyponatremia Head/Neck Cancer s/p Tracheostomy HTN Hyperlipidemia Hypothyroidism h/o CVA - received antibiotics in ED - can monitor off antibiotics - culture if febrile or with leukocytosis - O2 to keep SpO2 >90% - hyponatremia work up in progress - DVT prophylaxis Thank you for this consult Bo Cabello MD
[2020-07-28 16:51] LABS: BLOOD UREA NITROGEN 12.4 mg/dL (7-18); CALCIUM 8.8 mg/dL (8.5-10.1); CREATININE 0.6 mg/dL (0.55-1.3); POTASSIUM 4.1 mmol/L (3.5-5.1)
--- NOTE | 2020-07-28 19:01 | PN ---
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 - Current Medication List Current Medications: Active Medications Albuterol Sulfate (Ventolin Hfa Inhaler -) 2 puff IH Q6H [facility] Last Admin: 07/28/20 11:09 Dose: Not Given Documented by: Amlodipine Besylate (Norvasc -) 5 mg GT DAILY [facility] Last Admin: 07/28/20 11:08 Dose: 5 mg Documented by: Atorvastatin Calcium (Lipitor -) 40 mg GT HS [facility]ZY Enoxaparin Sodium (Lovenox -) 40 mg SQ DAILY [facility] Last Admin: 07/28/20 11:08 Dose: 40 mg Documented by: Famotidine (Pepcid) 20 mg NGT 0700,2200 [facility] Last Admin: 07/28/20 11:08 Dose: 20 mg Documented by: Sodium Chloride (Normal Saline -) 1,000 mls @ 100 mls/hr IV ASDIR [facility] Last Admin: 07/28/20 04:55 Dose: 100 mls/hr Documented by: Levothyroxine Sodium (Synthroid Injection -) 100 mcg IVPUSH DAILY [facility] Mometasone Furoate (Asmanex 110mcg -) 1 puff IH HS [facility] Non-Formulary Medication (Silodosin [Rapaflo]) 8 mg GT DAILY [facility] - Objective Vital Signs: Vital Signs Temperature 99.8 F H 07/28/20 14:16 Pulse Rate 97 H 07/28/20 15:17 Respiratory Rate 22 H 07/28/20 14:16 Blood Pressure 148/68 07/28/20 14:16 O2 Sat by Pulse Oximetry (%) 96 07/28/20 15:17 Constitutional: Yes: Well Nourished, No Distress, Poor Hygeine Eyes: Yes: EOM Intact HENT: Yes: WNL, Atraumatic, Normocephalic Neck: Yes: WNL, Supple Cardiovascular: Yes: WNL, Regular Rate and Rhythm Respiratory: Yes: WNL, Regular, CTA Bilaterally Gastrointestinal: Yes: WNL, Normal Bowel Sounds, Soft Musculoskeletal: Yes: WNL Extremities: Yes: WNL Edema: No Peripheral Pulses WNL: Yes Integumentary: Yes: WNL Neurological: Yes: WNL, Alert, Oriented ...Motor Strength: WNL Psychiatric: Yes: WNL, Alert, Oriented Labs: CBC, BMP 07/28/20 04:00 07/28/20 15:49 Impression/Plan Impression/Plan: Patient is a 75 year old male with past medical history of head/neck cancer s/p tracheostomy, HTN, 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 #Acute metabolic encephalopathy -possibly 2/2 hyponatremia, hypoxia/hypercapnea which improved prior to arrival to ED -Head CT no acute findings -Nephrology (Dr. Dewitt) consulted. REcs appreciated. Hyponatremia likely due to decreased intake of solute. ABG is suggestive of alkalosis which is likely posthypercapneic since he had a mucous plug -Iv NS @100cc/hr -monitor sodium levels q4, avoid correcting Na to more than 8mmol/day -obtain urine electrolytes, UA, -neurochecks -I&O #Hypoxia likely 2/2 mucus plug, on tracheostomy -CXR showed atelectasis, no evidence of pneumonia -frequent suctioning -pulm consult appreciated: Altered Mental Status improved Likely Mucous Plug #Anemia -no evidence of gross bleeding, unclear baseline -will order basic anemia work up iron studies, retic count, stool occult #HTN -will need to confirm home meds, [facility] pharmacy closed, will try to call again to confirm #FEN -IV NS @100cc/hr -hyponatremia, routine bmp monitoring -tube feeding #Prophylaxis -Lovenox 40mg sq daily #Disposition -med surg, on trach floor Visit type - Emergency Visit Emergency Visit: Yes ED Registration Date: 07/27/20 Care time: The patient presented to the Emergency Department on the above date and was hospitalized for further evaluation of their emergent condition. - New Patient This patient is new to me today: Yes Date on this admission: 07/28/20 - Critical Care Critical Care patient: No - Discharge Referral Referred to [facility] Med P.C.: No - Medication Review Med list reviewed for High Risk Meds patients 65 and older: No
[2020-07-28] MEDS: ATORVASTATIN CA 40 MG TABLET (FP) GT SCH (22:32)
[2020-07-28] MEDS: MOMETASONE FUROATE 110 MCG/IH INHALER IH SCH (22:32)
[2020-07-29] MEDS: ALBUTEROL SO4 HFA INHALER IH SCH ×2 (03:35→09:40)
[2020-07-29] MEDS: FAMOTIDINE 40 MG/5 ML ORAL SUSPENSION NGT SCH ×2 (06:01→22:50)
[2020-07-29 06:55] LABS: HEMATOCRIT 31.7 % (35.4-49); HEMOGLOBIN 10.6 GM/dL (11.7-16.9); MCH 27.4 pg (25.7-33.7); MCHC 33.4 g/dl (32.0-35.9); MEAN CELL VOLUME 81.9 fl (80-96); MEAN PLT VOLUME 7.5 fl (7.5-11.1); PLATELET COUNT 343 K/MM3 (134-434); RBC 3.87 M/mm3 (4.00-5.60); RDW 15.6 % (11.9-15.9); WHITE BLOOD COUNT 9.4 K/mm3 (4.0-10.0)
[2020-07-29 07:37] LABS: BLOOD UREA NITROGEN 11.6 mg/dL (7-18); CREATININE 0.6 mg/dL (0.55-1.3); POTASSIUM 3.7 mmol/L (3.5-5.1)
[2020-07-29] MEDS ORDERED: PT OWN MED DRAWER 7, Y5N ONE (09:37)
[2020-07-29] MEDS: amLODIPine BESYLATE 5 MG TABLET (FP) GT SCH (09:40)
[2020-07-29] MEDS: ENOXAPARIN NA (PORCINE) 40 MG/0.4 ML DISP.SYRIN SQ SCH (09:40)
[2020-07-29] MEDS ORDERED: LEVOTHYROXINE SODIUM 100 MCG VIAL IVPUSH SCH (10:00)
--- NOTE | 2020-07-29 10:06 | PN ---
Physical Exam: SUBJECTIVE: Patient seen and examined OBJECTIVE: Vital Signs Period Temp Pulse Resp BP Sys/Calhoun Pulse Ox Last 24 Hr 97.8 F-99.8 F 58-97 18-22 140-155/68-86 92-96 GENERAL: AAOx3, in no acute distress. HEENT: AT/NC, not P/c/j, trach in place LUNGS: Breath sounds equal, clear to auscultation bilaterally. No wheezes, and no crackles. No accessory muscle use. HEART: Regular rate and rhythm, normal S1 and S2 ABDOMEN: Soft, nontender, not distended UPPER EXTREMITIES: 2+ pulses, warm, well-perfused. No cyanosis. No clubbing. No peripheral edema. LOWER EXTREMITIES: 2+ pulses, warm, well-perfused. No calf tenderness. no edema. Laboratory Results - last 24 hr 07/27/20 07/28/20 07/29/20 15:30 15:49 06:33 WBC 9.4 RBC 3.87 L Hgb 10.6 L Hct 31.7 L D MCV 81.9 MCH 27.4 MCHC 33.4 RDW 15.6 Plt Count 343 D MPV 7.5 Sodium 126 L Potassium 4.1 Chloride 90 L Carbon Dioxide 28 Anion Gap 7 L BUN 12.4 Creatinine 0.6 Est GFR (CKD-EPI)AfAm 112.40 Est GFR (CKD-EPI)NonAf 96.98 Random Glucose 78 Calcium 8.8 COVID-19 ([facility]) Not detected 07/29/20 06:33 WBC RBC Hgb Hct MCV MCH MCHC RDW Plt Count MPV Sodium 125 L Potassium 3.7 Chloride 89 L Carbon Dioxide 25 Anion Gap 11 BUN 11.6 Creatinine 0.6 Est GFR (CKD-EPI)AfAm 112.40 Est GFR (CKD-EPI)NonAf 96.98 Random Glucose 68 L Calcium 9.0 COVID-19 ([facility]) Active Medications Generic Name Dose Route Start Last Admin Trade Name Freq PRN Reason Stop Dose Admin Albuterol Sulfate 2 puff 07/28/20 04:00 07/29/20 09:40 Ventolin Hfa Inhaler - IH 2 puff Q6H [facility] Administration Amlodipine Besylate 5 mg 07/28/20 10:00 07/29/20 09:40 Norvasc - GT 5 mg DAILY [facility] Administration Atorvastatin Calcium 40 mg 07/28/20 22:00 07/28/20 22:32 Lipitor - GT 40 mg HS MITZY Administration Enoxaparin Sodium 40 mg 07/28/20 10:00 07/29/20 09:40 Lovenox - SQ 40 mg DAILY [facility] Administration Famotidine 20 mg 07/28/20 09:00 07/29/20 06:01 Pepcid NGT 20 mg 0700,2200 MITZY Administration Levothyroxine Sodium 100 mcg 07/29/20 10:00 07/29/20 09:40 Synthroid Injection - IVPUSH 100 mcg DAILY MITZY Administration Mometasone Furoate 1 puff 07/28/20 22:00 07/28/20 22:32 Asmanex 110mcg - IH 1 puff HS MITZY Administration Non-Formulary Medication 8 mg 07/28/20 10:00 Silodosin [Rapaflo] GT DAILY [facility] ASSESSMENT/PLAN: 75 YO Man w/hx of tracheostomy, HTN, stroke 6 months ago with residual R sided weakness, Prostate CA, Thymoma, Neck CA (unknown type, had chemo/radiotherapy at [facility]) brought in to ED after he began to desaturate at home and had AMS # Delirium, resolved mental status back to baseline, asking to go causes: hypotonic euvolemic hyponatremia (SIADH?), desaturation (mucus plug suctioned en route) CT head pending reading Euvolemic sodium didn't improve much, unknown basline d/c fluids, placed on fluid restriction frequent suctioning, off Abx no fever, no leukocytosis started tube feeding neurocheck I/O can d/c tele Nephrology consult appreciated Equipment Sterilizer consult appreciated HTN CVA anemia Prostate CA, Thymoma, Neck CA DVT prophylaxis Condition discussed with pt and at bedside, questions answered to apparent satisfaction. Visit type - Emergency Visit Emergency Visit: Yes ED Registration Date: 07/27/20 Care time: The patient presented to the Emergency Department on the above date and was hospitalized for further evaluation of their emergent condition. - New Patient This patient is new to me today: Yes Date on this admission: 07/29/20 - Critical Care Critical Care patient: No - Discharge Referral Referred to [facility] Med P.C.: No - Medication Review Med list reviewed for High Risk Meds patients 65 and older: Yes (yes)
--- NOTE | 2020-07-29 11:39 | CONSULT ---
Admitting History and Physical - Past Medical History Pulmonary: Yes: Other (trach) Heme/Onc: Yes: Cancer - Smoking History Smoking history: Never smoked Have you smoked in the past 12 months: No History - Admission Reason For Visit: DIFFICULTY BREATHING/ALTERED MENTAL STATUS - Hearing Hearing: Normal Hearing Aide: No Speech Evaluation - Communication Primary Language: [place] Communication: Yes: Within Normal Limits Oral Expression Ability: Yes: Mild Impairment - Speech Production Apraxia: No Able to Make Needs Known: Yes: WNL Intelligibility: Yes: WNL - Speech Characteristics Voice Loudness: Limited Variation Voice Pitch: Yes: Limited Variation Voice Phonatory-based Quality: Yes: Glottal Garcia Speech Pattern: Impaired Speech Clarity: < 25% Nasal Resonance: Hyponasal/Denasal Articulation: Yes: Precise Rate of Speech: Intact Voice Comment: Vocal quality is impaired characterized as strident and gurly. - Language/Auditory Comprehension Follows: Yes: 1 Stage Simple Commands (WFL), 2 Stage Simple Commands (WFL) Observation: Able to respond to yes/no queries: Yes, Yes/No Confusion: No, Comprehends Conversational Speech: Yes, Benefits from Slow Speech: No, Benefits from Repetiton: No, Benefits from Increased Volume of Speech: No - Language/Verbal Expression Able to Respond to Simple Queries: Yes: WNL Able to Communicate Wants and Needs: Yes: WNL Functional Communication Status: Yes: WNL Aware of Errors: Yes Attempts to Correct Errors: Yes Use of Gestures: No Written Expression: not examined Oral Expression: WFL Reading Comprehension: not examined Calculations: not examined Attention: Yes: Intact - Memory/Perception MCFP Memory: Yes: WNL Short Term Memory: Yes: WNL - Swallow Evaluation/Bedside Assessment Current Nutritional Intake: NPO Oral Secretions: Yes: Copious Secretions (Thick yellow mucous) Dentition: Yes: Edentulous, Missing Teeth Facial Symmetry at Rest: Symmetrical Facial Symmetry on Retraction: Symmetrical Facial Movement: Controlled Sensation: Normal Facial Comment: within functional limits for speech and swallowing purposes. Jaw Position: Closed at Rest Against Resistance Opening: Normal Against Resistance Closing: Normal Pucker Lips: Normal Lips, Comment: within functional limits for speech and swallowing purposes. Lingual Speed of Movement: Normal Lingual Movement Strgth Against Opposition: Normal Lingual Movement Characteristics: Normal Lingual Comment: within functional limits for speech and swallowing purposes. Gag Reflex: Weak Bite Reflex: Present Velopharyngeal Movement: Reduced Elevation Laryngeal Elevation: Impaired (delayed) Laryngeal Movement: Unable to Palpate Needs Assistance: Yes Rate of Intake: Slow/Holding Bolus Size: WFL Labial Seal: WFL Chewing: Impaired (secondary to dental status) Oral Prep Time: WFL A-P Transit: WFL Pocketing: None Timing of Swallow: Delayed Odynophagia: Pharyngeal Coughing/Throat Clear: Yes Change in Voice: No Other Findings/Remarks: 75 yo male seen at bedside for swallow eval to r/o dysphagia. Pt is verbal, A&Ox2 cooperative. CC: hypoxia. 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 Hx of frequent PNA with ABT. Pt presents with reduced vocal quality affected by reduced secretion management. Wet gurgly voicing at bedside. Current diet NPO currently receiving nutritional supplement (via PEG?) jevity. Pt given PO trials of pureed with total assistance revealed good acceptance adequate bolus formation and A -P transport with a delayed pharyngeal swallow (2-3 second average). Positive cough with thick yellow phlegm after the swallow observed suggesting possible aspiration but no change in voicing. Pt given PO trials of ice chips via spoon with total assistance revealed good acceptance, adequate labial containment / bolus control and, A P transport with a delayed pharyngeal swallow (2-3 second average). Positive cough with thick yellow phlegm after the swallow observed suggesting possible aspiration but no change in voicing. Recommendations - Speech Evaluation, Impression/Plan Impression: 75 yo male presents with mild oral phase dysphagia for solids and mild to moderate pharyngeal phase dysphagia for liquids. Pt should remain NPO at this time. Speech and language are WNL. Residential Goals: Tolerate pleasure feed of purees with thicken liquids if medically cleared. Short Term Goals: tolerate pleasure feed without s/s of aspiration-like behaviors at bedside. - Dysphagia Impressions/Plan Swallowing Skills: Impaired Dysphagia Impressions: Mild Impairment (secondary to dental status o(ral phase).), Moderate Impairment (pharyngeal phase), Risk of Aspiration, Suspect Aspiration *Silent aspiration: cannot be R/O at bedside Dysphagia Evaluation Summary: Continue NPO status at time. Provide oral care. Continue PEG for providing medications, hydration and nutrition. Results given to pharmacist in charge and PCP via chart OXYACETYLENE BURNER will follow up for PO intake if there is a change in medical status. Recommendations: Modified Barium Swallow (consider before offering pleasure feeds.) - Recommendations Diet Consistency: NPO Liquids: NPO, Other (ice chips may be given to hydrate oral cavity.)
--- NOTE | 2020-07-29 13:18 | PN ---
Progress Note (short form) - Note Progress Note: PULMONARY Denies shortness of breath. +cough. No fevers. Vital Signs Period Temp Pulse Resp BP Sys/Calhoun Pulse Ox Last 24 Hr 97.6 F-99.8 F 58-97 18-22 139-155/68-88 92-96 Intake & Output 07/26/20 07/27/20 07/28/20 07/29/20 23:59 23:59 23:59 23:59 Intake Total 520 800 Balance 520 800 Weight 77.111 kg 77.111 kg Gen: NAD, trached Heart: RRR Lung: scattered rhonchi, wheezes Abd: soft, nontender Ext: no edema CBC, BMP 07/29/20 06:33 07/29/20 06:33 Active Medications Albuterol Sulfate (Ventolin Hfa Inhaler -) 2 puff IH Q6H [facility] Last Admin: 07/29/20 09:40 Dose: 2 puff Documented by: Amlodipine Besylate (Norvasc -) 5 mg GT DAILY [facility] Last Admin: 07/29/20 09:40 Dose: 5 mg Documented by: Atorvastatin Calcium (Lipitor -) 40 mg GT HS [facility] Last Admin: 07/28/20 22:32 Dose: 40 mg Documented by: Enoxaparin Sodium (Lovenox -) 40 mg SQ DAILY [facility] Last Admin: 07/29/20 09:40 Dose: 40 mg Documented by: Famotidine (Pepcid) 20 mg NGT 0700,2200 [facility] Last Admin: 07/29/20 06:01 Dose: 20 mg Documented by: Levothyroxine Sodium (Synthroid Injection -) 100 mcg IVPUSH DAILY [facility] Last Admin: 07/29/20 09:40 Dose: 100 mcg Documented by: Mometasone Furoate (Asmanex 110mcg -) 1 puff IH HS [facility] Last Admin: 07/28/20 22:32 Dose: 1 puff Documented by: Non-Formulary Medication (Silodosin [Rapaflo]) 8 mg GT DAILY [facility] A/P Altered Mental Status improved Likely Mucous Plug Hyponatremia Head/Neck Cancer s/p Tracheostomy HTN Hyperlipidemia Hypothyroidism h/o CVA - received antibiotics in ED - can monitor off antibiotics - culture if febrile or with leukocytosis - will start inhaled bronchodilators - O2 to keep SpO2 >90% - hyponatremia work up in progress - DVT prophylaxis
[2020-07-29] MEDS ORDERED: ALBUTEROL SO4 HFA INHALER IH PRN (13:25)
--- NOTE | 2020-07-29 15:08 | PN ---
Progress Note, Physician History of Present Illness: Pt seen and examined at bedside. He is awake and alert. he denies shortness of breath. - Current Medication List Current Medications: Active Medications Albuterol Sulfate (Ventolin Hfa Inhaler -) 2 puff IH Q6H PRN PRN Reason: SHORT OF BREATH/WHEEZING Albuterol/Ipratropium (Duoneb -) 1 amp NEB RQID [facility] Amlodipine Besylate (Norvasc -) 5 mg GT DAILY [facility] Last Admin: 07/29/20 09:40 Dose: 5 mg Documented by: Atorvastatin Calcium (Lipitor -) 40 mg GT HS [facility] Last Admin: 07/28/20 22:32 Dose: 40 mg Documented by: Enoxaparin Sodium (Lovenox -) 40 mg SQ DAILY [facility] Last Admin: 07/29/20 09:40 Dose: 40 mg Documented by: Famotidine (Pepcid) 20 mg NGT 0700,2200 [facility] Last Admin: 07/29/20 06:01 Dose: 20 mg Documented by: Levothyroxine Sodium (Synthroid Injection -) 100 mcg IVPUSH DAILY [facility] Last Admin: 07/29/20 09:40 Dose: 100 mcg Documented by: Mometasone Furoate (Asmanex 110mcg -) 1 puff IH HS [facility] Last Admin: 07/28/20 22:32 Dose: 1 puff Documented by: Non-Formulary Medication (Silodosin [Rapaflo]) 8 mg GT DAILY [facility] - Objective Vital Signs: Vital Signs Temperature 98.3 F 07/29/20 13:37 Pulse Rate 96 H 07/29/20 13:37 Respiratory Rate 22 H 07/29/20 13:37 Blood Pressure 141/83 07/29/20 13:37 O2 Sat by Pulse Oximetry (%) 98 07/29/20 13:37 Constitutional: Yes: Calm Eyes: Yes: Conjunctiva Clear HENT: Yes: Atraumatic Neck: Yes: Other (trache) Cardiovascular: Yes: S1, S2 Respiratory: Yes: CTA Bilaterally Gastrointestinal: Yes: Soft Genitourinary: Yes: WNL Musculoskeletal: Yes: WNL Edema: No Neurological: Yes: Oriented, Pre-Existing Deficit Labs: CBC, BMP 07/29/20 06:33 07/29/20 06:33 Assessment/Plan Current Medications Generic Name Dose Route Start Last Admin Trade Name Freq PRN Reason Stop Dose Admin Albuterol Sulfate 2 puff 07/29/20 13:25 Ventolin Hfa Inhaler - IH Q6H PRN SHORT OF BREATH/WHEEZING Albuterol/Ipratropium 1 amp 07/29/20 16:00 Duoneb - NEB RQID [facility]ZY Amlodipine Besylate 5 mg 07/28/20 10:00 07/29/20 09:40 Norvasc - GT 5 mg DAILY [facility] Administration Atorvastatin Calcium 40 mg 07/28/20 22:00 07/28/20 22:32 Lipitor - GT 40 mg HS [facility]ZY Administration Enoxaparin Sodium 40 mg 07/28/20 10:00 07/29/20 09:40 Lovenox - SQ 40 mg DAILY [facility] Administration Famotidine 20 mg 07/28/20 09:00 07/29/20 06:01 Pepcid NGT 20 mg 0700,2200 [facility]ZY Administration Levothyroxine Sodium 100 mcg 07/29/20 10:00 07/29/20 09:40 Synthroid Injection - IVPUSH 100 mcg DAILY [facility] Administration Mometasone Furoate 1 puff 07/28/20 22:00 07/28/20 22:32 Asmanex 110mcg - IH 1 puff HS [facility]ZY Administration Non-Formulary Medication 8 mg 07/28/20 10:00 Silodosin [Rapaflo] GT DAILY [facility]ZY Impression Laboratory Tests 07/28/20 07/28/20 07/28/20 04:00 04:00 04:00 Sodium TSH 0.53 Urine Osmolality 294 L Ur Random Sodium 40 07/29/20 06:33 Sodium 125 L TSH Urine Osmolality Ur Random Sodium Laboratory Tests 07/27/20 07/28/20 07/28/20 15:30 04:00 04:00 Serum Osmolality 259 L Urine Osmolality 294 L Ur Random Sodium 40 1. hyponatremia 2. hx cva 3. trache collar 4. peg tube 5. htn 6. hypothyroidism Plan - restrict free water - restart saline - repeat labs in am - repeat urine lytes and osm - monitor volume status - urine osm is actually more concentrated than plasma - restrict free water - add salt tabs
[2020-07-29] MEDS ORDERED: SODIUM CHLORIDE 1,000 ML IV SCH (15:15)
[2020-07-29] MEDS ORDERED: SODIUM CHLORIDE 1 GM TABLET PO SCH (15:15)
[2020-07-29] MEDS ORDERED: GABAPENTIN 250 MG/5 ML ORAL SOLUTION, 470 ML BOTTLE PO SCH (15:30)
[2020-07-29] MEDS ORDERED: SODIUM CHLORIDE 1 GM TABLET GT SCH (15:31)
[2020-07-29] MEDS: ALBUTEROL SO4 2.5/IPRATROPIUM 0.5 INH SOL 3 ML VIAL.NEB. NEB SCH ×2 (16:52→20:31)
[2020-07-29 19:01] LABS: EPI CELLS 7 /uL (0-25.1); HYALINE CASTS 0 /uL (0-3.1); URINE APPEARANCE CLEAR; URINE BACTERIA 4 /uL (0-1359); URINE BILIRUBIN NEGATIVE (NEGATIVE); URINE COLOR YELLOW; URINE GLUCOSE (UA) NEGATIVE (NEGATIVE); URINE KETONE NEGATIVE (NEGATIVE); URINE LEUK ESTERASE NEGATIVE (NEGATIVE); URINE NITRITE NEGATIVE (NEGATIVE); URINE PROTEIN 1+ (NEGATIVE); URINE RBC 304 /uL (0-23.9); URINE WBC 13 /uL (0-25.8)
[2020-07-29] MEDS: MOMETASONE FUROATE 110 MCG/IH INHALER IH SCH (22:48)
[2020-07-29] MEDS: FLUTICASONE PROP 0.05% 16 GM NASAL SPRAY NS SCH (22:48)
[2020-07-29] MEDS: GABAPENTIN 250 MG/5 ML ORAL SOLUTION, 470 ML BOTTLE GT SCH (22:50)
[2020-07-29] MEDS: ATORVASTATIN CA 40 MG TABLET (FP) GT SCH (22:50)
[2020-07-30] MEDS: FAMOTIDINE 40 MG/5 ML ORAL SUSPENSION NGT SCH (06:42)
[2020-07-30] MEDS: GABAPENTIN 250 MG/5 ML ORAL SOLUTION, 470 ML BOTTLE GT SCH ×2 (06:42→21:11)
[2020-07-30] MEDS ORDERED: LEVOTHYROXINE NA 200 MCG TABLET PO SCH (07:00)
[2020-07-30] MEDS ORDERED: LEVOTHYROXINE NA 200 MCG TABLET NR SCH (07:00)
--- NOTE | 2020-07-30 07:02 | RAPID ---
Physical Examination Vital Signs: Vital Signs Temperature 98.8 F 07/30/20 06:00 Pulse Rate 60 07/30/20 06:00 Respiratory Rate 18 07/30/20 06:00 Blood Pressure 105/48 07/30/20 06:00 O2 Sat by Pulse Oximetry (%) 100 07/30/20 06:00 Labs: CBC, BMP 07/29/20 06:33 07/29/20 06:33 Rapid Response - Rapid Response Assessment: At 6:56 the rapid response was called. Per nurse patients last known well was at 5AM and the patient was seen to be fully responsive and talking. The nurse had come in to change the patient and was found to be more altered and non-verbal. The patient is seen to be obtund and pale and minimally responsive. Patients blood pressure was 90s/60s. Patient given initially a 250mL bolus. A second 250mL was given during evaluation and the patient was finally given 1L. Patient was given a total of 1500L bolus of NS. BP increased to 116/80. Upon arrival patient responsive to vigorous sternal rub. Pupils were reactive to light. The patient became increasingly more alert and was able to follow commands. ABG obtained. CBC, CMP, lactic acid, blood cultures and troponins were drawn and patient sent down to head CT stat. ICU was consulted and had evaluated the patient prior to being sent to CT. Patient will be admitted to ICU admission.
[2020-07-30] MEDS ORDERED: SODIUM CHLORIDE 1,000 ML IV STA ×2 (07:05→07:23)
[2020-07-30] MEDS ORDERED: SODIUM CHLORIDE 250 ML IV STA ×2 (07:09→07:17)
[2020-07-30 07:29] LABS: ARTERIAL BLD GAS O2 SATURATION 98.7 mmHg (95-98); ARTERIAL BLOOD GAS BASE EXCESS 1.9 mmol/L (-2-2); ARTERIAL BLOOD GAS PO2 128.3 mmHg (80-100)
[2020-07-30 07:36] LABS: ALLENS TEST POSITIVE
--- NOTE | 2020-07-30 07:58 | HOSP ---
Subjective - Review of Symptoms General: Yes: Other (pt unresponsive and unable to participate in ROS) Physical Examination Vital Signs: Vital Signs Temperature 98.7 F 07/30/20 06:00 Pulse Rate 83 07/30/20 06:00 Respiratory Rate 18 07/30/20 06:00 Blood Pressure 167/78 07/30/20 06:00 O2 Sat by Pulse Oximetry (%) 96 07/30/20 06:00 Constitutional: Yes: Pallor Eyes: Yes: Other (pinpoint pupils) HENT: Yes: WNL Neck: Yes: Other (trach) Cardiovascular: Yes: Regular Rate and Rhythm Respiratory: Yes: CTA Bilaterally Gastrointestinal: Yes: Other (peg tube) ...Rectal Exam: Yes: Deferred Musculoskeletal: Yes: Other (right sided weakness) Edema: No Peripheral Pulses WNL: Yes Integumentary: Yes: WNL Labs: CBC, BMP 07/29/20 06:33 07/29/20 06:33 Hospitalist Encounter Assessment: Patient is a 75 year old male with past medical history of head/neck cancer s/p tracheostomy, HTN, recent CVA with residual right sided weakness 6 months ago, was BIBEMS from home after he was noted to be lethargic and hypoxic. Rapid response called this morning when patient was found to be minimally responsive to tactile and verbal stimuli. patient for a head CT now labs pending, but noted to have hyponatremia. on IVF seizure? glucose: 121 bp: 120/60, hr 55, afebrile awaiting a.m. labs, septic workup in progress
[2020-07-30] MEDS: ALBUTEROL SO4 2.5/IPRATROPIUM 0.5 INH SOL 3 ML VIAL.NEB. NEB SCH ×4 (08:00→20:26)
--- NOTE | 2020-07-30 08:21 | CONSULT ---
Consultation: REQUESTING PROVIDER: Dr. 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 He is known to have frequent hospitalizations at [facility] for pneumonia where he is usually treated with IV antibiotics. On 07/27 patient was found to be hypoxic at home, saturating at the 80s and noted to be less arousable. As per , patient's baseline is awake, alert and responsive. MS changes possibly due to hypercapnea which improved prior to arrival to ED. Patient also found to have hyponatremia (124) on admission. Consulted because this morning rapid response was called because patient mental status declined, was only responding to sternal rub. Not responding to commands. Blood pressure dropped, patient given bolus of fluids and being sent for CT head. REVIEW OF SYSTEMS: patient unable answer CONSTITUTIONAL: Absent: fever, chills, diaphoresis, generalized weakness, malaise, loss of appetite, weight change HEENT: Absent: rhinorrhea, nasal congestion, throat pain, throat swelling, difficulty swallowing, mouth swelling, ear pain, eye pain, visual changes CARDIOVASCULAR: Absent: chest pain, syncope, palpitations, irregular heart rate, lig htheadedness, peripheral edema RESPIRATORY: Absent: cough, shortness of breath, dyspnea with exertion, orthopnea, wheezing, stridor, hemoptysis GASTROINTESTINAL: Absent: abdominal pain, abdominal distension, nausea, vomiting, diarrhea, constipation, melena, hematochezia GENITOURINARY: Absent: dysuria, frequency, urgency, hesitancy, hematuria, flank pain, genital pain MUSCULOSKELETAL: Absent: myalgia, arthralgia, joint swelling, back pain, neck pain SKIN: Absent: rash, itching, pallor HEMATOLOGIC/IMMUNOLOGIC: Absent: easy bleeding, easy bruising, lymphadenopathy, frequent infections ENDOCRINE: Absent: unexplained weight gain, unexplained weight loss, heat intolerance, cold intolerance NEUROLOGIC: Absent: headache, focal weakness or paresthesias, dizziness, unsteady gait, seizure, mental status changes, bladder or bowel incontinence PSYCHIATRIC: Absent: anxiety, depression, suicidal or homicidal ideation, hallucinations. PHYSICAL EXAMINATION Vital Signs - 24 hr Last Vital Signs Temp Pulse Resp BP Pulse Ox 98.7 F 83 18 167/78 96 07/30/20 06:00 07/30/20 06:00 07/30/20 06:00 07/30/20 06:00 07/30/20 06:00 GENERAL: lethargic, arousable to painful stimuli, non verbal HEAD: Normal with no signs of trauma. EYES: PERRL, EOMI ENT: dry mucous membranes NECK: Trach in place LUNGS: CTA BL HEART: Regular rate and rhythm, normal S1 and S2 without murmur, rub or gallop. ABDOMEN: Soft, nontender, not distended, peg in place MSK: No edema BL NEUROLOGICAL: AMS from baseline. Non responsive SKIN: no rashes or lesions noted. Laboratory Last Values WBC 9.4 K/mm3 (4.0-10.0) 07/29/20 06:33 RBC 3.87 M/mm3 (4.00-5.60) L 07/29/20 06:33 Hgb 10.6 GM/dL (11.7-16.9) L 07/29/20 06:33 Hct 31.7 % (35.4-49) L D 07/29/20 06:33 MCV 81.9 fl (80-96) 07/29/20 06:33 MCH 27.4 pg (25.7-33.7) 07/29/20 06:33 MCHC 33.4 g/dl (32.0-35.9) 07/29/20 06:33 RDW 15.6 % (11.9-15.9) 07/29/20 06:33 Plt Count 343 K/MM3 (134-434) D 07/29/20 06:33 MPV 7.5 fl (7.5-11.1) 07/29/20 06:33 Absolute Neuts (auto) 5.8 K/mm3 (1.5-8.0) 07/28/20 04:00 Neutrophils % 75.0 % (42.8-82.8) 07/28/20 04:00 Neutrophils % (Manual) 69.9 % (42.8-82.8) 07/27/20 15:30 Band Neutrophils % 0.0 % 07/27/20 15:30 Lymphocytes % 5.1 % (8-40) L D 07/28/20 04:00 Lymphocytes % (Manual) 6.5 % (8-40) L 07/27/20 15:30 Monocytes % 15.0 % (3.8-10.2) H 07/28/20 04:00 Monocytes % (Manual) 22 % (3.8-10.2) H 07/27/20 15:30 Eosinophils % 3.9 % (0-4.5) 07/28/20 04:00 Eosinophils % (Manual) 2.1 % (0-4.5) 07/27/20 15:30 Basophils % 1.0 % (0-2.0) 07/28/20 04:00 Basophils % (Manual) 0.0 % (0-2.0) 07/27/20 15:30 Myelocytes % (Man) 0 % (0-2) 07/27/20 15:30 Promyelocytes % (Man) 0 % (0-2) 07/27/20 15:30 Blast Cells % (Manual) 0 % (0-0) 07/27/20 15:30 Nucleated RBC % 0 % (0-0) 07/28/20 04:00 Metamyelocytes 0 % (0-2) 07/27/20 15:30 Retic Count 2.78 % (0.5-1.5) H 07/28/20 04:00 Anticoagulation Therapy No Result Required. 07/30/20 07:00 Puncture Site Left radial 07/30/20 07:00 Patient Temperature No Result Required. 07/30/20 07:00 ABG pH 7.470 (7.350-7.450) H 07/30/20 07:00 ABG pCO2 35.80 mmHg (35-45) 07/30/20 07:00 ABG pO2 128.3 mmHg (80-100) H 07/30/20 07:00 ABG HCO3 25.5 mmol/L (22-27) 07/30/20 07:00 ABG O2 Sat (Measured) 98.7 mmHg (95-98) H 07/30/20 07:00 ABG O2 Content No Result Required. 07/30/20 07:00 ABG Base Excess 1.9 mmol/L (-2-2) 07/30/20 07:00 Sadi Test Positive 07/30/20 07:00 Patient On Oxygen Yes 07/30/20 07:00 O2 Delivery Device Trach collar 07/30/20 07:00 Oxygen Flow Rate 50 07/30/20 07:00 Vent Mode No Result Required. 07/30/20 07:00 Vent Rate No Result Required. 07/30/20 07:00 Mechanical Rate No Result Required. 07/30/20 07:00 PEEP No Result Required. 07/30/20 07:00 Pressure Support Vent No Result Required. 07/30/20 07:00 Sodium 132 mmol/L (136-145) L 07/30/20 07:35 Potassium 3.6 mmol/L (3.5-5.1) 07/30/20 07:35 Chloride 96 mmol/L (98-107) L 07/30/20 07:35 Carbon Dioxide 28 mmol/L (21-32) 07/30/20 07:35 Anion Gap 8 MMOL/L (8-16) 07/30/20 07:35 BUN 13.3 mg/dL (7-18) 07/30/20 07:35 Creatinine 0.6 mg/dL (0.55-1.3) 07/30/20 07:35 Est GFR (CKD-EPI)AfAm 112.40 07/30/20 07:35 Est GFR (CKD-EPI)NonAf 96.98 07/30/20 07:35 POC Glucometer 121 UNITS (80-120) 07/30/20 07:01 Random Glucose 117 mg/dL (74-106) H 07/30/20 07:35 Serum Osmolality 259 mosm/kg (278-305) L 07/27/20 15:30 Lactic Acid 1.2 mmol/L (0.4-2.0) 07/30/20 07:35 Calcium 8.3 mg/dL (8.5-10.1) L 07/30/20 07:35 Phosphorus 4.0 mg/dL (2.5-4.9) 07/28/20 04:00 Magnesium 1.8 mg/dL (1.8-2.4) 07/30/20 07:35 Iron 23 ug/dL (50-175) L 07/28/20 04:00 TIBC 218 ug/dL (250-450) L 07/28/20 04:00 Iron Saturation 10 % (17.5-39) L 07/28/20 04:00 Unsaturated IBC 195 ug/dL (200-275) L 07/28/20 04:00 Ferritin 262.0 ng/ml (8-388) 07/28/20 04:00 Total Bilirubin 0.4 mg/dL (0.2-1) 07/30/20 07:35 AST 21 U/L (15-37) 07/30/20 07:35 ALT 8 U/L (13-61) L 07/30/20 07:35 Alkaline Phosphatase 61 U/L (45-117) 07/30/20 07:35 Troponin I 0.03 ng/ml (0.00-0.05) 07/30/20 07:35 Total Protein 6.2 g/dl (6.4-8.2) L 07/30/20 07:35 Albumin 1.9 g/dl (3.4-5.0) L 07/30/20 07:35 TSH 0.53 uIU/ml (0.358-3.74) 07/28/20 04:00 Urine Color Yellow 07/29/20 15:30 Urine Appearance Clear 07/29/20 15:30 Urine pH 8.0 (5.0-8.0) 07/29/20 15:30 Ur Specific [place] 1.007 (1.010-1.035) L 07/29/20 15:30 Urine Protein 1+ (NEGATIVE) H 07/29/20 15:30 Urine Glucose (UA) Negative (NEGATIVE) 07/29/20 15:30 Urine Ketones Negative (NEGATIVE) 07/29/20 15:30 Urine Blood 2+ (NEGATIVE) H 07/29/20 15:30 Urine Nitrite Negative (NEGATIVE) 07/29/20 15:30 Urine Bilirubin Negative (NEGATIVE) 07/29/20 15:30 Urine Urobilinogen 1.0 mg/dL (0.2-1.0) 07/29/20 15:30 Ur Leukocyte Esterase Negative (NEGATIVE) 07/29/20 15:30 Urine WBC (Auto) 13 /uL (0-25.8) 07/29/20 15:30 Urine RBC (Auto) 304 /uL (0-23.9) 07/29/20 15:30 Urine Casts (Auto) 0 /uL (0-3.1) 07/29/20 15:30 U Epithel Cells (Auto) 7 /uL (0-25.1) 07/29/20 15:30 Urine Bacteria (Auto) 4 /uL (0-1359) 07/29/20 15:30 Urine Osmolality 300 mosm/kg (300-900) 07/29/20 15:30 Ur Random Creatinine 44.0 mg/dL (30-150) 07/28/20 04:00 Ur Random Sodium 107 MMOL/L (40-220) 07/29/20 15:30 Ur Random Potassium 16.0 MMOL/L (25-125) L 07/29/20 15:30 Ur Random Chloride 106 MMOL/L (110-250) L 07/29/20 15:30 COVID-19 ([place]EN[place]) Not detected (Not Detected) 07/27/20 15:30 Home Medications Medication Instructions Recorded Albuterol Sulfate Inhaler - 2 puff IH Q6H 07/28/20 [Ventolin HFA Inhaler -] Amlodipine Besylate 5 mg GT DAILY 07/28/20 Atorvastatin Ca [Lipitor] 40 mg GT HS 07/28/20 Escitalopram Oxalate [Lexapro -] 10 mg GT DAILY 07/28/20 Fluticasone Furoate [Arnuity 1 spray IH BID 07/28/20 Ellipta] Gabapentin [Neurontin -] 200 mg GT TID 07/28/20 Gabapentin [Neurontin] 200 mg GT TID 07/28/20 Levothyroxine Sodium [Synthroid] 200 mcg GT DAILY 07/28/20 Losartan Potassium 100 mg GT DAILY 07/28/20 Omeprazole 30 mg GT DAILY 07/28/20 Silodosin [Rapaflo] 8 mg GT DAILY 07/28/20 Active Medications Generic Name Dose Route Start Last Admin Trade Name Freq PRN Reason Stop Dose Admin Albuterol Sulfate 2 puff 07/29/20 13:25 Ventolin Hfa Inhaler - IH Q6H PRN SHORT OF BREATH/WHEEZING Albuterol/Ipratropium 1 amp 07/29/20 16:00 07/29/20 20:31 Duoneb - NEB 1 amp RQID [facility]ZY Administration Amlodipine Besylate 5 mg 07/28/20 10:00 07/29/20 09:40 Norvasc - GT 5 mg DAILY [facility] Administration Atorvastatin Calcium 40 mg 07/28/20 22:00 07/29/20 22:50 Lipitor - GT 40 mg HS [facility]ZY Administration Enoxaparin Sodium 40 mg 07/28/20 10:00 07/29/20 09:40 Lovenox - SQ 40 mg DAILY [facility] Administration Escitalopram Oxalate 10 mg 07/30/20 10:00 Lexapro Oral Solution - GT DAILY [facility] Famotidine 20 mg 07/28/20 09:00 07/30/20 06:42 Pepcid NGT 20 mg 0700,2200 MITZY Administration Fluticasone Propionate 1 spray 07/29/20 22:00 07/29/20 22:48 Flonase - NS 1 spray BID [facility]ZY Administration Gabapentin 200 mg 07/29/20 15:31 07/30/20 06:42 Neurontin Oral Liquid - GT 200 mg TID [facility]ZY Administration Sodium Chloride 250 mls @ 250 mls/hr 07/30/20 07:09 Normal Saline - IV 07/30/20 08:08 ASDIR STA Sodium Chloride 250 mls @ 250 mls/hr 07/30/20 07:17 Normal Saline - IV 07/30/20 08:16 ASDIR STA Sodium Chloride 1,000 mls @ 1,000 mls/hr 07/30/20 07:23 Normal Saline - IV 07/30/20 08:22 ASDIR STA Levothyroxine Sodium 200 mcg 07/30/20 07:00 07/30/20 06:42 Synthroid - NR 200 mcg DAILY@0700 MITZY Administration Mometasone Furoate 1 puff 07/28/20 22:00 07/29/20 22:48 Asmanex 110mcg - IH 1 puff HS MITZY Administration Non-Formulary Medication 8 mg 07/28/20 10:00 Silodosin [Rapaflo] GT DAILY [facility]ZY Sodium Chloride 1 gm 07/29/20 15:31 Sodium Chloride Tablet - GT DAILY [facility] CXR: single view of the chest is submitted. Since 07/27/2020 again noted is the severe scoliosis with convexity to the right, tracheostomy tube, oxygen mask, sclerotic knob and large heart. There is new pleural fluid with atelectasis or infiltrate at the left base. The left upper lobe and right lung are clear. The right angle is sharp. There are degenerative changes within the soft tissues are intact. Impression: Worse. New left base pulmonary and pleural changes when compared to 07/27/2020. 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 Patient found to be hyponatremic on admission and being treated for mucous plug. Rapid response rapid response was called because patient mental status declined, was only responding to sternal rub. Blood pressure dropped, patient given bolus of fluids and being sent for CT head. Admitted to ICU for AMS and severe hyponatremia. Neuro - hx cva 6 months ago w/ r sided weakness - AMS - hyponatremia possibly contributing to AMS - CT head today showed no acute changes - Stat MRI brain ordered - Neurology consulted - prolactin sent, possible seizure activity, EEG ordered Pulm - trach no vent - saturating 100% room air - recieving breathing treatments - tx for mucous plugs - new infiltrate on CXR possible PNA Cardio - BP stable - hx HTN on amlodipine - CVA on lipitor Renal - hyponatremia, on water restriction and salt tabs - nephro following (Marce Eaton) - sodium corrected 135 - start d5 W @ 42cc/hr - repeat BMP for Na levels GI - peg in place - pepcid 20 po daily Endo - hypothyroidism, continue synthroid ID - blood cultures pending - sputum cultures sent - hx of mucous plugs and PNA - ceftriaxone started today - Lactic acid, CPK ordered Heme - repeat CBC for Hbg/Hct FEN - bolus 1500 cc IVF given during rapid - NPO for now - monitor and replete electrolytes PRN DVT ppx - lovenox GI ppx - switch to IV protonix daily Dispo: Admit to ICU Visit type - Medication Review Med list reviewed for High Risk Meds patients 65 and older: Yes - Emergency Visit Emergency Visit: Yes ED Registration Date: 07/27/20 Care time: The patient presented to the Emergency Department on the above date and was hospitalized for further evaluation of their emergent condition. - New Patient This patient is new to me today: Yes Date on this admission: 07/27/20 - Critical Care Critical Care patient: Yes Total Critical Care Time (in minutes): 36 Critical Care Statement: The care of this patient involved high complexity decision making to prevent further life threatening deterioration of the patient's condition and/or to evaluate & treat vital organ system(s) failure or risk of failure. ATTENDING PHYSICIAN STATEMENT I saw and evaluated the patient. I reviewed the resident's note and discussed the case with the resident. I agree with the resident's findings and plan as documented. SUBJECTIVE: OBJECTIVE: ASSESSMENT AND PLAN:
[2020-07-30 08:50] LABS: ALBUMIN 1.9 g/dl (3.4-5.0); BILIRUBIN,TOTAL 0.4 mg/dL (0.2-1); BLOOD UREA NITROGEN 13.3 mg/dL (7-18); CALCIUM 8.3 mg/dL (8.5-10.1); CREATININE 0.6 mg/dL (0.55-1.3); POTASSIUM 3.6 mmol/L (3.5-5.1); TOT PROT 6.2 g/dl (6.4-8.2)
[2020-07-30 08:51] LABS: MAGNESIUM 1.8 mg/dL (1.8-2.4)
[2020-07-30] MEDS ORDERED: SODIUM CHLORIDE 1,000 ML IV SCH (09:15)
[2020-07-30] MEDS ORDERED: PT OWN MED DRAWER 7, Y5N ONE ×5 (09:54→21:06)
[2020-07-30] MEDS ORDERED: PANTOPRAZOLE SOD 40 MG SUSPENSION PACKET PO SCH (10:00)
[2020-07-30] MEDS ORDERED: ESCITALOPRAM OXALATE 5 MG/5 ML PO SCH (10:00)
[2020-07-30] MEDS ORDERED: ESCITALOPRAM OXALATE 5 MG/5 ML GT SCH (10:00)
[2020-07-30] MEDS ORDERED: PANTOPRAZOLE SOD 40 MG SUSPENSION PACKET NR SCH (10:00)
[2020-07-30] MEDS: amLODIPine BESYLATE 5 MG TABLET (FP) GT SCH (10:09)
[2020-07-30] MEDS: ENOXAPARIN NA (PORCINE) 40 MG/0.4 ML DISP.SYRIN SQ SCH (10:09)
[2020-07-30] MEDS: FLUTICASONE PROP 0.05% 16 GM NASAL SPRAY NS SCH (10:10)
--- NOTE | 2020-07-30 11:03 | PN ---
Teaching Attending Note Name of Resident: Chanelle Marcos ATTENDING PHYSICIAN STATEMENT I saw and evaluated the patient. I reviewed the resident's note and discussed the case with the resident. I agree with the resident's findings and plan as documented. SUBJECTIVE: Pt seen and examined in the ICU. Transferred down for altered mental status. Saturating well. Arousable but not following commands. CT head unremarkable. Withdraws to pain in all 4 extremities. OBJECTIVE: Vital Signs Period Temp Pulse Resp BP Sys/[place] Pulse Ox Last 24 Hr 98.2 F-98.7 F 55-96 18-22 96-167/60-94 96-100 Intake & Output 07/27/20 07/28/20 07/29/20 07/30/20 23:59 23:59 23:59 23:59 Intake Total 520 1270 Output Total 450 200 Balance 520 820 -200 Weight 77.111 kg 77.111 kg 77.111 kg Gen: arousable but not following commands Heart: RRR Lung: decreased breath sounds at the bases Abd: soft, nontender Ext: no edema CBC, BMP 07/29/20 06:33 07/30/20 07:35 Active Medications Albuterol Sulfate (Ventolin Hfa Inhaler -) 2 puff IH Q6H PRN PRN Reason: SHORT OF BREATH/WHEEZING Albuterol/Ipratropium (Duoneb -) 1 amp NEB RQID [facility] Last Admin: 07/29/20 20:31 Dose: 1 amp Documented by: Amlodipine Besylate (Norvasc -) 5 mg GT DAILY [facility] Last Admin: 07/30/20 10:09 Dose: 5 mg Documented by: Atorvastatin Calcium (Lipitor -) 40 mg GT HS [facility] Last Admin: 07/29/20 22:50 Dose: 40 mg Documented by: Enoxaparin Sodium (Lovenox -) 40 mg SQ DAILY [facility] Last Admin: 07/30/20 10:09 Dose: 40 mg Documented by: Escitalopram Oxalate (Lexapro Oral Solution -) 10 mg GT DAILY [facility] Famotidine (Pepcid) 20 mg NGT 0700,2200 [facility] Last Admin: 07/30/20 06:42 Dose: 20 mg Documented by: Fluticasone Propionate (Flonase -) 1 spray NS BID [facility] Last Admin: 07/30/20 10:10 Dose: 1 spray Documented by: Gabapentin (Neurontin Oral Liquid -) 200 mg GT TID [facility] Last Admin: 07/30/20 06:42 Dose: 200 mg Documented by: Sodium Chloride (Normal Saline -) 1,000 mls @ 42 mls/hr IV ASDIR [facility] Stop: 07/31/20 09:04 Last Admin: 07/30/20 09:27 Dose: 42 mls/hr Documented by: Levothyroxine Sodium (Synthroid -) 200 mcg NR DAILY@0700 [facility] Last Admin: 07/30/20 06:42 Dose: 200 mcg Documented by: Mometasone Furoate (Asmanex 110mcg -) 1 puff IH HS [facility] Last Admin: 07/29/20 22:48 Dose: 1 puff Documented by: Non-Formulary Medication (Silodosin [Rapaflo]) 8 mg GT DAILY [facility] Sodium Chloride (Sodium Chloride Tablet -) 1 gm GT DAILY [facility] ASSESSMENT AND PLAN: Altered Mental Status r/o Acute CVA Likely Mucous Plug Hyponatremia Head/Neck Cancer s/p Tracheostomy HTN Hyperlipidemia Hypothyroidism h/o CVA - MRI brain - neuro eval - culture if febrile or with leukocytosis - inhaled bronchodilators - O2 to keep SpO2 >90% - aspiration precautions - DVT prophylaxis
[2020-07-30] MEDS ORDERED: DEXTROSE 5%-WATER - 1,000 ML IV SCH (11:15)
[2020-07-30] MEDS ORDERED: PANTOPRAZOLE SODIUM 40 MG VIAL IVPUSH SCH (11:30)
[2020-07-30 11:31] LABS: BASO % 0.9 % (0-2.0); EOS % 1.9 % (0-4.5); HEMATOCRIT 25.2 % (35.4-49); HEMOGLOBIN 8.4 GM/dL (11.7-16.9); LYMPH % 2.7 % (8-40); MCH 27.4 pg (25.7-33.7); MCHC 33.4 g/dl (32.0-35.9); MEAN CELL VOLUME 81.9 fl (80-96); MEAN PLT VOLUME 7.6 fl (7.5-11.1); MONO % 12.1 % (3.8-10.2); NEUT % 82.4 % (42.8-82.8); PLATELET COUNT 299 K/MM3 (134-434); RBC 3.07 M/mm3 (4.00-5.60); WHITE BLOOD COUNT 8.4 K/mm3 (4.0-10.0)
--- NOTE | 2020-07-30 11:40 | EKG ---
Test Reason : Blood Pressure : / mmHG Vent. Rate : 058 BPM Atrial Rate : 058 BPM P-R Int : 186 ms QRS Dur : 102 ms QT Int : 488 ms P-R-T Axes : 091 025 020 degrees QTc Int : 479 ms SINUS BRADYCARDIA VOLTAGE CRITERIA FOR LEFT VENTRICULAR HYPERTROPHY ABNORMAL ECG NO PREVIOUS ECGS AVAILABLE Confirmed by Bran Pickering ([id number]) on 07/30/2020 11:39:58 AM Referred By: Francisca LARIOS Confirmed By:Bran Pickering
[2020-07-30] MEDS ORDERED: CEFTRIAXONE 1 GM in DEXTROSE 5%-WATER - 50 ML IVPB ONE (12:00)
[2020-07-30] MEDS ORDERED: cefTRIAXone SODIUM 1 GM VIAL ONE (13:10)
[2020-07-30] MEDS ORDERED: DEXTROSE 5%-WATER - 50 ML IVPB ONE (13:11)
[2020-07-30 13:32] LABS: BLOOD UREA NITROGEN 11.7 mg/dL (7-18); CALCIUM 8.7 mg/dL (8.5-10.1); CREATININE 0.5 mg/dL (0.55-1.3); POTASSIUM 3.4 mmol/L (3.5-5.1)
--- NOTE | 2020-07-30 13:44 | PN ---
Progress Note, Physician History of Present Illness: Pt seen and examined at bedside. He had a rapid response this morning and was upgrade to the ICU. He is arousible. He is moving his left arm and leg. He does respond to questions. He is being worked up for seizure. - Current Medication List Current Medications: Active Medications Albuterol Sulfate (Ventolin Hfa Inhaler -) 2 puff IH Q6H PRN PRN Reason: SHORT OF BREATH/WHEEZING Albuterol/Ipratropium (Duoneb -) 1 amp NEB RQID [facility] Last Admin: 07/30/20 12:19 Dose: 1 amp Documented by: Amlodipine Besylate (Norvasc -) 5 mg GT DAILY [facility] Last Admin: 07/30/20 10:09 Dose: 5 mg Documented by: Atorvastatin Calcium (Lipitor -) 40 mg GT HS [facility] Last Admin: 07/29/20 22:50 Dose: 40 mg Documented by: Chlorhexidine Gluconate (Hibiclens For Decolonization -) 1 applic TP HS [facility] Enoxaparin Sodium (Lovenox -) 40 mg SQ DAILY [facility] Last Admin: 07/30/20 10:09 Dose: 40 mg Documented by: Escitalopram Oxalate (Lexapro Oral Solution -) 10 mg GT DAILY [facility] Last Admin: 07/30/20 11:41 Dose: 10 mg Documented by: Fluticasone Propionate (Flonase -) 1 spray NS BID [facility] Last Admin: 07/30/20 10:10 Dose: 1 spray Documented by: Gabapentin (Neurontin Oral Liquid -) 200 mg GT TID [facility] Last Admin: 07/30/20 06:42 Dose: 200 mg Documented by: Ceftriaxone Sodium 1 gm/ (Dextrose) 50 mls @ 100 mls/hr IVPB DAILY [facility] Levothyroxine Sodium (Synthroid -) 200 mcg NR DAILY@0700 [facility] Last Admin: 07/30/20 06:42 Dose: 200 mcg Documented by: Mometasone Furoate (Asmanex 110mcg -) 1 puff IH [facility] Last Admin: 07/29/20 22:48 Dose: 1 puff Documented by: Mupirocin (Bactroban Ointment (For Decolonization) -) 1 applic NS BID [facility] Stop: 08/04/20 21:59 Pantoprazole Sodium (Protonix Iv) 40 mg IVPUSH DAILY [facility] Potassium Chloride (Potassium Chloride Oral Liquid) 40 meq PO ONCE ONE Stop: 07/30/20 13:46 Sodium Chloride (Sodium Chloride Tablet -) 1 gm GT DAILY [facility] Last Admin: 07/30/20 11:41 Dose: 1 gm Documented by: - Objective Vital Signs: Vital Signs Temperature 98.3 F 07/30/20 07:45 Pulse Rate 55 L 07/30/20 07:45 Respiratory Rate 20 07/30/20 10:00 Blood Pressure 120/60 07/30/20 07:45 O2 Sat by Pulse Oximetry (%) 100 07/30/20 10:00 Constitutional: Yes: Calm Eyes: Yes: Conjunctiva Clear HENT: Yes: Atraumatic Neck: Yes: Other (trache) Cardiovascular: Yes: S1, S2 Respiratory: Yes: Other (trache collar) Genitourinary: Yes: Incontinence Musculoskeletal: Yes: Muscle Weakness Edema: No Neurological: Yes: Pre-Existing Deficit Labs: CBC, BMP 07/30/20 07:35 07/30/20 12:48 - ....Imaging Chest X-ray: Report Reviewed Assessment/Plan Current Medications Generic Name Dose Route Start Last Admin Trade Name Freq PRN Reason Stop Dose Admin Albuterol Sulfate 2 puff 07/29/20 13:25 Ventolin Hfa Inhaler - IH Q6H PRN SHORT OF BREATH/WHEEZING Albuterol/Ipratropium 1 amp 07/29/20 16:00 07/30/20 12:19 Duoneb - NEB 1 amp RQID [facility]ZY Administration Amlodipine Besylate 5 mg 07/28/20 10:00 07/30/20 10:09 Norvasc - GT 5 mg DAILY [facility] Administration Atorvastatin Calcium 40 mg 07/28/20 22:00 07/29/20 22:50 Lipitor - GT 40 mg HS [facility] Administration Chlorhexidine Gluconate 1 applic 07/30/20 22:00 Hibiclens For Decolonization - TP HS [facility] Enoxaparin Sodium 40 mg 07/28/20 10:00 07/30/20 10:09 Lovenox - SQ 40 mg DAILY [facility] Administration Escitalopram Oxalate 10 mg 07/30/20 10:00 07/30/20 11:41 Lexapro Oral Solution - GT 10 mg DAILY [facility] Administration Fluticasone Propionate 1 spray 07/29/20 22:00 07/30/20 10:10 Flonase - NS 1 spray BID [facility]ZY Administration Gabapentin 200 mg 07/29/20 15:31 07/30/20 06:42 Neurontin Oral Liquid - GT 200 mg TID [facility] Administration Ceftriaxone Sodium 1 gm/ 50 mls @ 100 mls/hr 07/31/20 10:00 Dextrose IVPB DAILY [facility] Levothyroxine Sodium 200 mcg 07/30/20 07:00 07/30/20 06:42 Synthroid - NR 200 mcg DAILY@0700 [facility] Administration Mometasone Furoate 1 puff 07/28/20 22:00 07/29/20 22:48 Asmanex 110mcg - IH 1 puff HS [facility] Administration Mupirocin 1 applic 07/30/20 22:00 Bactroban Ointment (For Decolonization) - NS 08/04/20 21:59 BID [facility] Pantoprazole Sodium 40 mg 07/30/20 11:30 Protonix Iv IVPUSH DAILY [facility] Potassium Chloride 40 meq 07/30/20 13:45 Potassium Chloride Oral Liquid PO 07/30/20 13:46 ONCE ONE Sodium Chloride 1 gm 07/29/20 15:31 07/30/20 11:41 Sodium Chloride Tablet - GT 1 gm DAILY [facility] Administration Impression 1. hyponatremia 2. hx cva 3. trache collar 4. peg tube 5. htn 6. hypothyroidism 7. r/o seizure Plan - cont to monitor electrolytes - neuro eval for possible seizure in setting of pt with hx of cva - sodium is 130, rate of change is appropriate - d/c all fluids - follow repeat urine studies - discussed with ICU team - con frequent suction, pt has thick secretions - discussed with pulmonary
[2020-07-30] MEDS ORDERED: POTASSIUM CHLORIDE ORAL LIQUID 20 MEQ/15 ML PO ONE (13:45)
[2020-07-30] MEDS ORDERED: ALBUTEROL SO4 HFA INHALER IH PRN (14:41)
--- NOTE | 2020-07-30 16:36 | CON.NEURO ---
Consult - Past Medical History Pulmonary: Yes: Other (trach) - Smoking History Smoking history: Never smoked Have you smoked in the past 12 months: No Home Medications - Allergies Allergies/Adverse Reactions: Allergies Allergy/AdvReac Type Severity Reaction Status Date / Time No Known Allergies Allergy Verified 07/29/20 15:25 - Home Medications Home Medications: Ambulatory Orders Albuterol Sulfate Inhaler - [Ventolin HFA Inhaler -] 2 puff IH Q6H 07/28/20 Amlodipine Besylate 5 mg GT DAILY 07/28/20 Atorvastatin Ca [Lipitor] 40 mg GT HS 07/28/20 Escitalopram Oxalate [Lexapro -] 10 mg GT DAILY 07/28/20 Fluticasone Furoate [Arnuity Ellipta] 1 spray IH BID 07/28/20 Gabapentin [Neurontin -] 200 mg GT TID 07/28/20 Levothyroxine Sodium [Synthroid] 200 mcg GT DAILY 07/28/20 Losartan Potassium 100 mg GT DAILY 07/28/20 Omeprazole 20 mg GT DAILY 07/28/20 Silodosin [Rapaflo] 8 mg GT DAILY 07/28/20 Physical Exam-Neuro Vital Signs: Vital Signs Temperature 98.7 F 07/30/20 12:00 Pulse Rate 68 07/30/20 14:00 Respiratory Rate 19 07/30/20 14:00 Blood Pressure 144/63 07/30/20 14:00 O2 Sat by Pulse Oximetry (%) 100 07/30/20 14:00 Labs: CBC, BMP 07/30/20 07:35 07/30/20 12:48 Assessment/Plan cc Episodic hypoxic and unresponsiveness 75 year old male with past medical history of head/neck cancer s/p tracheostomy, HTN, 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 He came to hospital or episodes of unreponsiveness and hypoxic, he wa son regular floor and he was brought to icu for furhter observation . Patient has residual right sided hemiparesis . He has mri of brain done and also have hyponatremia during hospitalization. There is no fever , nad he was also started on abx empirically for penumonia. THere is no new neurological symptoms. no apparent tonic clonic seizure like activity. Recent Travel: denies PAST MEDICAL HISTORY: head/neck cancer s/p tracheostomy HTN recent CVA with residual right sided weakness PAST SURGICAL HISTORY: Social History: Smoking:denies Alcohol:denies Drugs: denies Allergies Penicillins Allergy (Verified 07/27/20 11:46) HOME MEDICATIONS: Home Medications Medication Instructions Recorded Aspirin [ASA -] 325 mg PO DAILY 01/07/18 Atorvastatin Ca [Lipitor] 20 mg PO HS 01/07/18 Citalopram Hydrobromide 20 mg PO DAILY 01/07/18 [Citalopram HBr] Lactobacillus Acidophilus 1 each PO DAILY 01/07/18 [Probiotic] Levothyroxine [Synthroid -] 175 mcg PO DAILY 01/07/18 Nifedipine [Nifedipine ER] 30 mg PO DAILY 01/07/18 Lactose-Reduced Food/Fiber [Jevity 237 ml GT 07/27/20 1.5 Cornelius Liquid] ROS,FH,SH REVIEWED IN CHART NEUROLOGICAL EXAMINATION Alert and whispering and able to tel lme his name nad age 77 neck is supple afebrile vss eomi, pupils reactive no face asymmetry right arm weaknes supto grade 2 and moving left uper extremity and both lower extremity mri ofbrain pending eeg is pending Assessment/Plan 75 year old male with past medical history of head/neck cancer s/p tracheostomy, HTN, 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 - recurrent episode of unresponsiveness and becoming obtunded and hypoxic, no tonic clonic activity. Patient has mri of brain and eeg is pending. Plan-- Patient is back to his baseline - continue abx as per ID - Wwould follow up on mri of brain and eeg and decide about AED - Supportive care - 35 cc time Thanking you so much Christy Prince MD
--- NOTE | 2020-07-30 20:22 | PN ---
Progress Note (short form) - Note Progress Note: MRI shows acute left parietal lobe infarction. Ordered echocardiogram. allow for permissive hypertension. stopped amlodipine Discussed with Neurorology (Dr. Prince). Recommended: -aspirin 81 mg -lipitor 80 mg -carotid doppler -speech and swallow NIHSS 8
[2020-07-30] MEDS ORDERED: ATORVASTATIN CA 40 MG TABLET (FP) GT SCH ×2 (20:26→22:00)
[2020-07-30] MEDS: ATORVASTATIN CA 80 MG TABLET (FP) GT SCH (21:09)
[2020-07-30] MEDS: ASPIRIN 81 MG CHEWABLE TABLETS PO SCH (21:09)
[2020-07-30] MEDS: CHLORHEXIDINE GLUCONATE 4% CLEANSER FOR DECOLONIZATION TP SCH (21:11)
[2020-07-30] MEDS: MUPIROCIN 2% TOPICAL OINTMENT FOR DECOLONIZATION NS SCH (21:11)
--- NOTE | 2020-07-30 21:35 | PN ---
Progress Note (short form) - Note Progress Note: I contacted the to alert her of the patients new found stroke. wants to be updated if anything changes.
[2020-07-31] MEDS: FLUTICASONE PROP 0.05% 16 GM NASAL SPRAY NS SCH ×3 (00:12→21:29)
[2020-07-31] MEDS: MOMETASONE FUROATE 110 MCG/IH INHALER IH SCH ×2 (00:12→21:41)
[2020-07-31] MEDS ORDERED: PT OWN MED DRAWER 7, Y5N ONE ×5 (05:54→21:19)
[2020-07-31] MEDS: GABAPENTIN 250 MG/5 ML ORAL SOLUTION, 470 ML BOTTLE GT SCH ×3 (06:33→21:28)
[2020-07-31] MEDS: LEVOTHYROXINE NA 200 MCG TABLET NR SCH (06:52)
[2020-07-31 07:41] LABS: HEMATOCRIT 31.7 % (35.4-49); HEMOGLOBIN 10.5 GM/dL (11.7-16.9); MCH 27.4 pg (25.7-33.7); MCHC 33.1 g/dl (32.0-35.9); MEAN CELL VOLUME 82.8 fl (80-96); MEAN PLT VOLUME 7.5 fl (7.5-11.1); PLATELET COUNT 381 K/MM3 (134-434); RBC 3.83 M/mm3 (4.00-5.60); RDW 15.9 % (11.9-15.9); WHITE BLOOD COUNT 8.4 K/mm3 (4.0-10.0)
[2020-07-31] MEDS: ALBUTEROL SO4 2.5/IPRATROPIUM 0.5 INH SOL 3 ML VIAL.NEB. NEB SCH ×4 (08:00→20:34)
[2020-07-31 08:04] LABS: ALBUMIN 2.5 g/dl (3.4-5.0); BILIRUBIN,TOTAL 0.8 mg/dL (0.2-1); BLOOD UREA NITROGEN 10.7 mg/dL (7-18); CALCIUM 9.1 mg/dL (8.5-10.1); CREATININE 0.6 mg/dL (0.55-1.3); MAGNESIUM 1.8 mg/dL (1.8-2.4); PHOSPHOROUS 3.3 mg/dL (2.5-4.9); TOT PROT 7.7 g/dl (6.4-8.2)
--- NOTE | 2020-07-31 08:40 | PN ---
Progress Note (short form) - Note Progress Note: cc Episodic hypoxic and unresponsiveness 75 year old male with past medical history of head/neck cancer s/p tracheostomy, HTN, 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 He came to hospital or episodes of unreponsiveness and hypoxic, he wa son regular floor and he was brought to icu for furhter observation . Patient has residual right sided hemiparesis . He has mri of brain done and also have hyponatremia during hospitalization. There is no fever , nad he was also started on abx empirically for penumonia. THere is no new neurological symptoms. no apparent tonic clonic seizure like activity. NEUROLOGICAL EXAMINATION Alert and oriented x 3, feeling good, afebrile vss neck is supple afebrile vss eomi, pupils reactive no face asymmetry right arm weaknes supto grade 2 and moving left uper extremity and both lower extremity mri ofbrain showed left parietal acute stroke eeg is pending Assessment/Plan 75 year old male with past medical history of head/neck cancer s/p tracheostomy, HTN, 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 left pareital acute ischemic lesion( acute ischemic vs epileptic foci) - recurrent episode of unresponsiveness and becoming obtunded and hypoxic, no tonic clonic activity. Patient has mri of brain and eeg is pending. Plan-- add aspirin, continue statin, pt, carotid ultrasound , cardiology follow up - continue abx as per ID - eeg and consider AED - 35 cc time Thanking you so much Christy Prince MD
--- NOTE | 2020-07-31 08:54 | HP ---
Admitting History and Physical - Past Medical History Pulmonary: Yes: Other (trach) Heme/Onc: Yes: Cancer - Smoking History Smoking history: Never smoked Have you smoked in the past 12 months: No Home Medications - Allergies Allergies/Adverse Reactions: Allergies Allergy/AdvReac Type Severity Reaction Status Date / Time No Known Allergies Allergy Verified 07/29/20 15:25 - Home Medications Home Medications: Ambulatory Orders Albuterol Sulfate Inhaler - [Ventolin HFA Inhaler -] 2 puff IH Q6H 07/28/20 Amlodipine Besylate 5 mg GT DAILY 07/28/20 Atorvastatin Ca [Lipitor] 40 mg GT HS 07/28/20 Escitalopram Oxalate [Lexapro -] 10 mg GT DAILY 07/28/20 Fluticasone Furoate [Arnuity Ellipta] 1 spray IH BID 07/28/20 Gabapentin [Neurontin -] 200 mg GT TID 07/28/20 Levothyroxine Sodium [Synthroid] 200 mcg GT DAILY 07/28/20 Losartan Potassium 100 mg GT DAILY 07/28/20 Omeprazole 20 mg GT DAILY 07/28/20 Silodosin [Rapaflo] 8 mg GT DAILY 07/28/20 Physical Examination Vital Signs: Vital Signs Temperature 98.8 F 07/31/20 06:00 Pulse Rate 72 07/31/20 08:00 Respiratory Rate 23 H 07/31/20 08:00 Blood Pressure 170/74 07/31/20 08:00 O2 Sat by Pulse Oximetry (%) 100 07/31/20 08:00 Constitutional: Yes: Well Nourished. No: Anxious Eyes: Yes: WNL, Conjunctiva Clear, EOM Intact HENT: Yes: WNL, Atraumatic, Normocephalic, Drooling, Epistaxis, Hoarseness, Nasal Congestion, Pharyngeal Erythema, Rhinnorhea, Thrush, Tonsillar Exudate, Other Neck: No: WNL, Supple, Trachea Midline, Decreased ROM, Lymphadenopathy, Rigid, Tenderness, Thyromegaly, Other Cardiovascular: Yes: WNL, Regular Rate and Rhythm. No: Bradycardia, Tachycardia, Pulse Irregular, Bruit, JVD, Gallop, Murmur, Rub, S1, S2, S3, S4, Varicosities, Other Respiratory: Yes: WNL, Regular, CTA Bilaterally Gastrointestinal: Yes: Abdomen, Obese (,pl,\pl\), Tenderness, Epigastrium Labs: CBC, BMP 07/31/20 06:15 07/31/20 06:15
[2020-07-31] MEDS ORDERED: cefTRIAXone SODIUM 1 GM VIAL ONE (08:55)
[2020-07-31] MEDS ORDERED: DEXTROSE 5%-WATER - 50 ML IVPB ONE (08:55)
[2020-07-31] MEDS: ASPIRIN 81 MG CHEWABLE TABLETS PO SCH (09:23)
[2020-07-31] MEDS: MUPIROCIN 2% TOPICAL OINTMENT FOR DECOLONIZATION NS SCH ×2 (09:24→21:28)
--- NOTE | 2020-07-31 09:54 | PN ---
Progress Note, PRODUCTION SERVICE MANAGER - Note Progress Note: 75 YO Man w/hx of tracheostomy, HTN, stroke 6 months ago with residual R sided weakness, Prostate CA, Thymoma,head / neck CA s/p tracheostomy, HTN, recent CVA with residual right sided weakness of UE and LE. Hx of frequent PNA with ABT brought in to ED after he began to desaturate at home and had AMS Became obtunded with acute left parietal stroke identified. Known to me from out pt MBS, while pt was at [facility] 05/17/20- At that time, pt presented with impaired laryngeal excursion/epiglottic inversion with stasis, reverse flow of contrast from UES back up into pharynx, with silent aspiration. Concern for possible stricture at UES level sec to RT, I was hopeful if present, it could be stretched since swallow itself seemed fairly brisk. Per pt's , pt was see Dr. Marques, [facility]NT [facility], while at [facility] who felt pt could eat and rec po trials. Pt started on puree/thin liquid at [facility], however, pt's felt tx was not helpful. He has been reportedly NPO since home, on TF only. I asked pt and if they wanted a repeat MBS, and they both were not interested. Pt's was angry, stating that she was confused about his medical condition. I communicated this to medical staff. She was educated last night by neurology and medical team. Assessed tolerance of small sip of water, with responsive cough noted, likely c/w aspiration. Pt was resistant to language assessment. Initially, pt presented with groping for words and word errors, but seemed to improve as he continued to speak. Some intermittent difficulty with propositional language on paragraph level. Occasional word substitutions eg keyboard for remote control, which he justified and denied difficulty. Further language w/u indicated when pt is calm and will comply. REC: continue NPO/TF MBS, at some point when pt/ are interested. I personally would defer po trials without repeat instrumental swallowing assessment
[2020-07-31] MEDS ORDERED: ENOXAPARIN NA (PORCINE) 40 MG/0.4 ML DISP.SYRIN SQ SCH (10:00)
[2020-07-31] MEDS ORDERED: CEFTRIAXONE 1 GM in DEXTROSE 5%-WATER - 50 ML IVPB SCH (10:00)
[2020-07-31] MEDS ORDERED: ESCITALOPRAM OXALATE 5 MG/5 ML GT SCH (10:00)
[2020-07-31] MEDS ORDERED: amLODIPine BESYLATE 5 MG TABLET (FP) GT SCH (10:00)
[2020-07-31] MEDS ORDERED: PANTOPRAZOLE SODIUM 40 MG VIAL IVPUSH SCH (10:00)
--- NOTE | 2020-07-31 10:48 | HOSP ---
Subjective - Review of Symptoms General: No: Chills, Night Sweats HEENT: No: Head Aches, Visual Changes Pulmonary: No: Dyspnea Cardiovascular: No: Chest Pain, Orthopnea Gastrointestinal: No: Nausea, Vomiting, Abdominal Pain Musculoskeletal: No: No Symptoms Neurological: Yes: Other (does not remember yesterday's events ). No: Weakness, Numbness, Confusion Physical Examination Vital Signs: Vital Signs Temperature 97.5 F L 07/31/20 10:00 Pulse Rate 72 07/31/20 10:00 Respiratory Rate 17 07/31/20 10:00 Blood Pressure 169/75 07/31/20 10:00 O2 Sat by Pulse Oximetry (%) 100 07/31/20 10:00 Constitutional: Yes: No Distress, Calm Eyes: Yes: Conjunctiva Clear, EOM Intact HENT: Yes: Atraumatic, Normocephalic Neck: Yes: Supple Cardiovascular: Yes: Regular Rate and Rhythm, S1, S2 Respiratory: Yes: Diminished, On Nasal O2 Gastrointestinal: Yes: Normal Bowel Sounds, Soft, Other (peg in place) Edema: No Neurological: Yes: Alert, Oriented Psychiatric: Yes: Alert, Oriented Labs: CBC, BMP 07/31/20 06:15 07/31/20 06:15 Laboratory Last Values WBC 8.4 K/mm3 (4.0-10.0) 07/31/20 06:15 RBC 3.83 M/mm3 (4.00-5.60) L 07/31/20 06:15 Hgb 10.5 GM/dL (11.7-16.9) L 07/31/20 06:15 Hct 31.7 % (35.4-49) L D 07/31/20 06:15 MCV 82.8 fl (80-96) 07/31/20 06:15 MCH 27.4 pg (25.7-33.7) 07/31/20 06:15 MCHC 33.1 g/dl (32.0-35.9) 07/31/20 06:15 RDW 15.9 % (11.9-15.9) 07/31/20 06:15 Plt Count 381 K/MM3 (134-434) D 07/31/20 06:15 MPV 7.5 fl (7.5-11.1) 07/31/20 06:15 Absolute Neuts (auto) 7.0 K/mm3 (1.5-8.0) 07/30/20 07:35 Neutrophils % 82.4 % (42.8-82.8) 07/30/20 07:35 Neutrophils % (Manual) 69.9 % (42.8-82.8) 07/27/20 15:30 Band Neutrophils % 0.0 % 07/27/20 15:30 Lymphocytes % 2.7 % (8-40) L D 07/30/20 07:35 Lymphocytes % (Manual) 6.5 % (8-40) L 07/27/20 15:30 Monocytes % 12.1 % (3.8-10.2) H 07/30/20 07:35 Monocytes % (Manual) 22 % (3.8-10.2) H 07/27/20 15:30 Eosinophils % 1.9 % (0-4.5) 07/30/20 07:35 Eosinophils % (Manual) 2.1 % (0-4.5) 07/27/20 15:30 Basophils % 0.9 % (0-2.0) 07/30/20 07:35 Basophils % (Manual) 0.0 % (0-2.0) 07/27/20 15:30 Myelocytes % (Man) 0 % (0-2) 07/27/20 15:30 Promyelocytes % (Man) 0 % (0-2) 07/27/20 15:30 Blast Cells % (Manual) 0 % (0-0) 07/27/20 15:30 Nucleated RBC % 0 % (0-0) 07/30/20 07:35 Metamyelocytes 0 % (0-2) 07/27/20 15:30 Retic Count 2.78 % (0.5-1.5) H 07/28/20 04:00 Anticoagulation Therapy No Result Required. 07/30/20 07:00 Puncture Site Left radial 07/30/20 07:00 Patient Temperature No Result Required. 07/30/20 07:00 ABG pH 7.470 (7.350-7.450) H 07/30/20 07:00 ABG pCO2 35.80 mmHg (35-45) 07/30/20 07:00 ABG pO2 128.3 mmHg (80-100) H 07/30/20 07:00 ABG HCO3 25.5 mmol/L (22-27) 07/30/20 07:00 ABG O2 Sat (Measured) 98.7 mmHg (95-98) H 07/30/20 07:00 ABG O2 Content No Result Required. 07/30/20 07:00 ABG Base Excess 1.9 mmol/L (-2-2) 07/30/20 07:00 Sadi Test Positive 07/30/20 07:00 Patient On Oxygen Yes 07/30/20 07:00 O2 Delivery Device Trach collar 07/30/20 07:00 Oxygen Flow Rate 50 07/30/20 07:00 Vent Mode No Result Required. 07/30/20 07:00 Vent Rate No Result Required. 07/30/20 07:00 Mechanical Rate No Result Required. 07/30/20 07:00 PEEP No Result Required. 07/30/20 07:00 Pressure Support Vent No Result Required. 07/30/20 07:00 Sodium 128 mmol/L (136-145) L 07/31/20 06:15 Potassium 4.0 mmol/L (3.5-5.1) 07/31/20 06:15 Chloride 93 mmol/L (98-107) L 07/31/20 06:15 Carbon Dioxide 27 mmol/L (21-32) 07/31/20 06:15 Anion Gap 8 MMOL/L (8-16) 07/31/20 06:15 BUN 10.7 mg/dL (7-18) 07/31/20 06:15 Creatinine 0.6 mg/dL (0.55-1.3) 07/31/20 06:15 Est GFR (CKD-EPI)AfAm 112.40 07/31/20 06:15 Est GFR (CKD-EPI)NonAf 96.98 07/31/20 06:15 POC Glucometer 121 UNITS (80-120) 07/30/20 07:01 Random Glucose 68 mg/dL (74-106) L 07/31/20 06:15 Serum Osmolality 259 mosm/kg (278-305) L 07/27/20 15:30 Lactic Acid 1.0 mmol/L (0.4-2.0) 07/30/20 12:48 Calcium 9.1 mg/dL (8.5-10.1) 07/31/20 06:15 Phosphorus 3.3 mg/dL (2.5-4.9) 07/31/20 06:15 Magnesium 1.8 mg/dL (1.8-2.4) 07/31/20 06:15 Iron 23 ug/dL (50-175) L 07/28/20 04:00 TIBC 218 ug/dL (250-450) L 07/28/20 04:00 Iron Saturation 10 % (17.5-39) L 07/28/20 04:00 Unsaturated IBC 195 ug/dL (200-275) L 07/28/20 04:00 Ferritin 262.0 ng/ml (8-388) 07/28/20 04:00 Total Bilirubin 0.8 mg/dL (0.2-1) 07/31/20 06:15 AST 21 U/L (15-37) 07/31/20 06:15 ALT 8 U/L (13-61) L 07/31/20 06:15 Alkaline Phosphatase 78 U/L (45-117) 07/31/20 06:15 Creatine Kinase 56 U/L (26-308) 07/30/20 12:48 Troponin I 0.03 ng/ml (0.00-0.05) 07/30/20 07:35 Total Protein 7.7 g/dl (6.4-8.2) 07/31/20 06:15 Albumin 2.5 g/dl (3.4-5.0) L 07/31/20 06:15 Triglycerides 69 mg/dL (0-150) 07/31/20 06:15 Cholesterol 117 mg/dL (50-200) 07/31/20 06:15 Total LDL Cholesterol 66 mg/dL (5-100) 07/31/20 06:15 HDL Cholesterol 46 mg/dL (40-60) 07/31/20 06:15 TSH 0.53 uIU/ml (0.358-3.74) 07/28/20 04:00 Prolactin 13.8 ng/ml (4.0-15.2) 07/30/20 07:35 Urine Color Yellow 07/29/20 15:30 Urine Appearance Clear 07/29/20 15:30 Urine pH 8.0 (5.0-8.0) 07/29/20 15:30 Ur Specific [place] 1.007 (1.010-1.035) L 07/29/20 15:30 Urine Protein 1+ (NEGATIVE) H 07/29/20 15:30 Urine Glucose (UA) Negative (NEGATIVE) 07/29/20 15:30 Urine Ketones Negative (NEGATIVE) 07/29/20 15:30 Urine Blood 2+ (NEGATIVE) H 07/29/20 15:30 Urine Nitrite Negative (NEGATIVE) 07/29/20 15:30 Urine Bilirubin Negative (NEGATIVE) 07/29/20 15:30 Urine Urobilinogen 1.0 mg/dL (0.2-1.0) 07/29/20 15:30 Ur Leukocyte Esterase Negative (NEGATIVE) 07/29/20 15:30 Urine WBC (Auto) 13 /uL (0-25.8) 07/29/20 15:30 Urine RBC (Auto) 304 /uL (0-23.9) 07/29/20 15:30 Urine Casts (Auto) 0 /uL (0-3.1) 07/29/20 15:30 U Epithel Cells (Auto) 7 /uL (0-25.1) 07/29/20 15:30 Urine Bacteria (Auto) 4 /uL (0-1359) 07/29/20 15:30 Urine Osmolality 300 mosm/kg (300-900) 07/29/20 15:30 Ur Random Creatinine 44.0 mg/dL (30-150) 07/28/20 04:00 Ur Random Sodium 107 MMOL/L (40-220) 07/29/20 15:30 Ur Random Potassium 16.0 MMOL/L (25-125) L 07/29/20 15:30 Ur Random Chloride 106 MMOL/L (110-250) L 07/29/20 15:30 COVID-19 (BENITO) Not detected (Not Detected) 07/27/20 15:30 Hospitalist Encounter Assessment: Patient is a 75 year old male with past medical history of head/neck cancer s/p tracheostomy, HTN, recent CVA with residual right sided weakness 6 months ago, was BIBEMS from home after he was noted to be lethargic and hypoxic on 07/27. He is known to have frequent hospitalizations at [facility] for pneumonia where he is usually treated with IV antibiotics. On 07/27 patient was found to be hypoxic at home, saturating at the 80s and noted to be less arousable. As per , patient's baseline is awake, alert and responsive. MS changes possibly due to hypercapnea which improved prior to arrival to ED. Patient also found to have hyponatremia (124) on admission. ICU was consulted on 07/30 because patient mental status declined, no longer responding to commands, only responding to sternal rub. Blood pressure dropped briefly, patient given bolus of fluids and sent for CT head. CT head showed no acute pathology or changes since prior CT on admission. In ICU, patient remained altered but stable. CXR showed new lower left lobe infiltrate and the patient was started on ceftriaxone 1 gram daily - Today will be day 2 of treatment. MRI was done yesterday afternoon for possibility of acute ischemic infarct, results below: Acute left parietal lobe infarction. Ischemic changes in both cerebral hemispheres sequela to hypertension or small vessel atherosclerosis. Old completed infarction right parietal lobe with residual encephalomalacia. Dr. Prince spoke to regarding MRI results. Patient's amlodipine was d/c to allow for permissive HTN. EEG has also been ordered to assess for seizure activity. This morning, patient is awake, alert, oriented, speaking. He does not recall the events of yesterday. He had no complaints this morning. His tube feeds were restarted with decreased free water due to hyponatremia. Dr. Zheng (nephro) is following the patient for hyponatremia. He is on fluid restrictions and salt tabs. Today Na was 128. Echocardiogram and carotid doppler ordered for today to assess for etiology of stroke. Patient is now stable for discharge to tele Visit type - Medication Review Med list reviewed for High Risk Meds patients 65 and older: Yes - Emergency Visit Emergency Visit: Yes ED Registration Date: 07/27/20 Care time: The patient presented to the Emergency Department on the above date and was hospitalized for further evaluation of their emergent condition. - New Patient This patient is new to me today: No - Critical Care Critical Care patient: Yes Total Critical Care Time (in minutes): 36 Critical Care Statement: The care of this patient involved high complexity decision making to prevent further life threatening deterioration of the patient's condition and/or to evaluate & treat vital organ system(s) failure or risk of failure.
--- NOTE | 2020-07-31 11:06 | PN ---
Progress Note (short form) - Note Progress Note: Assessment/Plan 75 year old male with past medical history of head/neck cancer s/p tracheostomy, HTN, recent CVA with residual right sided weakness 6 months ago. Patient was on the floor when he had change in mental status. A head CT and MRI was preformed which showed a new acute left parietal lobe infarct. 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 - as seen on MRI - continue ASA, lipitor - followed by neurology - echo - Carotid - speech and swallow Patient stable for downgrade to tele
--- NOTE | 2020-07-31 11:22 | PN ---
Teaching Attending Note Name of Resident: Chanelle Marcos ATTENDING PHYSICIAN STATEMENT I saw and evaluated the patient. I reviewed the resident's note and discussed the case with the resident. I agree with the resident's findings and plan as documented. SUBJECTIVE: Pt seen and examined in the ICU. Mental status much improved. MRI brain c onfirming left parietal stroke. OBJECTIVE: Vital Signs Period Temp Pulse Resp BP Sys/[place] Pulse Ox Last 24 Hr 97.5 F-98.8 F 56-92 15-25 99-180/52-93 94-100 Intake & Output 07/28/20 07/29/20 07/30/20 07/31/20 23:59 23:59 23:59 23:59 Intake Total 520 1270 1076 100 Output Total 450 450 100 Balance 520 820 626 0 Weight 77.111 kg 77.111 kg 77.156 kg Gen: NAD at rest Heart: RRR Lung: decreased breath sounds at the bases Abd: soft, nontender Ext: no edema CBC, BMP 07/31/20 06:15 07/31/20 06:15 Active Medications Albuterol Sulfate (Ventolin Hfa Inhaler -) 2 puff IH Q6H PRN PRN Reason: SHORT OF BREATH/WHEEZING Albuterol/Ipratropium (Duoneb -) 1 amp NEB RQID [facility] Last Admin: 07/31/20 08:00 Dose: 1 amp Documented by: Aspirin (Asa -) 81 mg PO DAILY [facility] Last Admin: 07/31/20 09:23 Dose: 81 mg Documented by: Atorvastatin Calcium (Lipitor -) 80 mg GT HS [facility] Last Admin: 07/30/20 21:09 Dose: 80 mg Documented by: Chlorhexidine Gluconate (Hibiclens For Decolonization -) 1 applic TP [facility] Last Admin: 07/30/20 21:11 Dose: 1 applic Documented by: Enoxaparin Sodium (Lovenox -) 40 mg SQ DAILY [facility] Last Admin: 07/31/20 10:08 Dose: 40 mg Documented by: Escitalopram Oxalate (Lexapro Oral Solution -) 10 mg GT DAILY [facility] Last Admin: 07/31/20 10:05 Dose: 10 mg Documented by: Fluticasone Propionate (Flonase -) 1 spray NS BID [facility] Last Admin: 07/31/20 10:06 Dose: 1 spray Documented by: Gabapentin (Neurontin Oral Liquid -) 200 mg GT TID [facility] Last Admin: 07/31/20 06:33 Dose: 200 mg Documented by: Ceftriaxone Sodium 1 gm/ (Dextrose) 50 mls @ 100 mls/hr IVPB DAILY [facility] Last Admin: 07/31/20 10:16 Dose: 100 mls/hr Documented by: Levothyroxine Sodium (Synthroid -) 200 mcg NR DAILY@0700 [facility] Last Admin: 07/31/20 06:52 Dose: 200 mcg Documented by: Mometasone Furoate (Asmanex 110mcg -) 1 puff IH HS [facility] Last Admin: 07/31/20 00:12 Dose: Not Given Documented by: Mupirocin (Bactroban Ointment (For Decolonization) -) 1 applic NS BID [facility] Stop: 08/04/20 21:59 Last Admin: 07/31/20 09:24 Dose: 1 applic Documented by: Pantoprazole Sodium (Protonix Iv) 40 mg IVPUSH DAILY [facility] Last Admin: 07/31/20 09:44 Dose: 40 mg Documented by: ASSESSMENT AND PLAN: Altered Mental Status improved Acute CVA Pneumonia Likely Mucous Plug Hyponatremia Head/Neck Cancer s/p Tracheostomy HTN Hyperlipidemia Hypothyroidism h/o CVA - continue antibiotics - f/u cultures - echocardiogram - carotid dopplers - inhaled bronchodilators - O2 to keep SpO2 >90% - aspiration precautions - DVT prophylaxis - can monitor on stroke floor
--- NOTE | 2020-07-31 11:31 | ECHO ---
Name: CARLYLE PATE Exam:Adult Echocardiogram Study Date: 07/31/2020 10:09 AM Age: 75 yrs Reason For Study: History of CVA Height: 67 in Weight: 170 lb BSA: 1.9 m2 BP: 189/70 mmHg MMode/2D Measurements & Calculations RVDd: 3.3 cm Ao root diam: 3.1 cm IVSd: 1.4 cm LA dimension: 4.3 cm LVIDd: 4.3 cm ACS: 1.7 cm LVIDs: 2.9 cm LVPWd: 1.3 cm EDV(Teich): 83.0 ml LVOT diam: 2.4 cm ESV(Teich): 31.7 ml LAV (MOD-bp): 127.0 ml TAPSE: 3.5 cm RV S Barrie: 24.1 cm/sec Doppler Measurements & Calculations MV E max barrie: 73.5 cm/sec Ao V2 max: 143.9 cm/sec MV A max barrie: 96.7 cm/sec Ao max P.3 mmHg MV E/A: 0.76 Ao V2 mean: 98.5 cm/sec MV dec time: 0.30 sec Ao mean P.3 mmHg Ao V2 VTI: 31.9 cm JENIFFER(I,D): 3.1 cm2 JENIFFER(V,D): 2.9 cm2 LV V1 max P.6 mmHg SV(LVOT): 98.3 ml LV V1 mean P.0 mmHg LV V1 max: 95.3 cm/sec LV V1 mean: 66.3 cm/sec LV V1 VTI: 22.6 cm PA V2 max: 99.1 cm/sec PI end-d barrie: 89.6 cm/sec PA max P.9 mmHg PA acc slope: 594.8 cm/sec2 PA acc time: 0.13 sec Med Peak E' Barrie: 3.7 cm/sec PA pr(Accel): 20.4 mmHg Med E/e': 19.9 Lat Peak E' Barrie: 7.2 cm/sec Lat E/e': 10.2 Tech Comments TDS. Patient trached and scanned supine. Procedure A two-dimensional transthoracic echocardiogram with color flow and Doppler was performed. The patient was in normal sinus rhythm during the exam. Left Ventricle The left ventricle is normal in size. There is mild concentric left ventricular hypertrophy. Left joshua tricular systolic function is normal. Ejection Fraction = 60%. The transmitral spectral Doppler flow pattern i s suggestive of impaired LV relaxation. Right Ventricle The right ventricle is normal in size and function. Atria The left atrium is mildly dilated. Right atrial size is normal. Mitral Valve There is mild mitral annular calcification. There is mild mitral regurgitation. Tricuspid Valve The tricuspid valve is not well visualized, but is grossly normal. There is trace tricuspid regurgita tion. There was insufficient TR detected to calculate RV systolic pressure. Aortic Valve There is moderate aortic sclerosis.;. The aortic valve is trileaflet. No hemodynamically significant valvular aortic stenosis. Mild aortic regurgitation. Pulmonic Valve The pulmonic valve is not well visualized. Trace pulmonic valvular regurgitation. Great Vessels The aortic root is normal size. Pericardium/Pleura There is no pericardial effusion. Interpretation Summary A two-dimensional transthoracic echocardiogram with color flow and Doppler was performed. The left ventricle is normal in size. There is mild concentric left ventricular hypertrophy. Left ventricular systolic function is normal. The transmitral spectral Doppler flow pattern is suggestive of impaired LV relaxation. The left atrium is mildly dilated. There is mild mitral annular calcification. There is mild mitral regurgitation. There is trace tricuspid regurgitation. There was insufficient TR detected to calculate RV systolic pressure. There is moderate aortic sclerosis.; No hemodynamically significant valvular aortic stenosis. Mild aortic regurgitation. There is no pericardial effusion. MD Carlyle Marie 07/31/2020 11:30 AM
--- NOTE | 2020-07-31 13:07 | PN ---
Progress Note, Physician History of Present Illness: Pt seen and examined at bedside. He is awake and alert. He does not remember what happened yesterday. - Current Medication List Current Medications: Active Medications Albuterol Sulfate (Ventolin Hfa Inhaler -) 2 puff IH Q6H PRN PRN Reason: SHORT OF BREATH/WHEEZING Albuterol/Ipratropium (Duoneb -) 1 amp NEB RQID [facility] Last Admin: 07/31/20 08:00 Dose: 1 amp Documented by: Aspirin (Asa -) 81 mg PO DAILY [facility] Last Admin: 07/31/20 09:23 Dose: 81 mg Documented by: Atorvastatin Calcium (Lipitor -) 80 mg GT [facility] Last Admin: 07/30/20 21:09 Dose: 80 mg Documented by: Chlorhexidine Gluconate (Hibiclens For Decolonization -) 1 applic TP [facility] Last Admin: 07/30/20 21:11 Dose: 1 applic Documented by: Enoxaparin Sodium (Lovenox -) 40 mg SQ DAILY [facility] Last Admin: 07/31/20 10:08 Dose: 40 mg Documented by: Escitalopram Oxalate (Lexapro Oral Solution -) 10 mg GT DAILY [facility] Last Admin: 07/31/20 10:05 Dose: 10 mg Documented by: Fluticasone Propionate (Flonase -) 1 spray NS BID [facility] Last Admin: 07/31/20 10:06 Dose: 1 spray Documented by: Gabapentin (Neurontin Oral Liquid -) 200 mg GT TID [facility] Last Admin: 07/31/20 06:33 Dose: 200 mg Documented by: Ceftriaxone Sodium 1 gm/ (Dextrose) 50 mls @ 100 mls/hr IVPB DAILY [facility] Last Admin: 07/31/20 10:16 Dose: 100 mls/hr Documented by: Levothyroxine Sodium (Synthroid -) 200 mcg NR DAILY@0700 [facility] Last Admin: 07/31/20 06:52 Dose: 200 mcg Documented by: Mometasone Furoate (Asmanex 110mcg -) 1 puff IH [facility] Last Admin: 07/31/20 00:12 Dose: Not Given Documented by: Mupirocin (Bactroban Ointment (For Decolonization) -) 1 applic NS BID [facility] Stop: 08/04/20 21:59 Last Admin: 07/31/20 09:24 Dose: 1 applic Documented by: Pantoprazole Sodium (Protonix Iv) 40 mg IVPUSH DAILY [facility] Last Admin: 07/31/20 09:44 Dose: 40 mg Documented by: - Objective Vital Signs: Vital Signs Temperature 97.5 F L 07/31/20 10:00 Pulse Rate 70 07/31/20 12:00 Respiratory Rate 19 07/31/20 12:00 Blood Pressure 156/75 07/31/20 12:00 O2 Sat by Pulse Oximetry (%) 100 07/31/20 12:00 Constitutional: Yes: Calm Eyes: Yes: Conjunctiva Clear HENT: Yes: Atraumatic Neck: Yes: Supple Cardiovascular: Yes: S1, S2 Respiratory: Yes: Other (trache collar) Gastrointestinal: Yes: Normal Bowel Sounds, Soft Genitourinary: Yes: Incontinence Musculoskeletal: Yes: Muscle Weakness Neurological: Yes: Oriented, Pre-Existing Deficit Labs: CBC, BMP 07/31/20 06:15 07/31/20 06:15 Assessment/Plan Current Medications Generic Name Dose Route Start Last Admin Trade Name Freq PRN Reason Stop Dose Admin Albuterol Sulfate 2 puff 07/30/20 14:41 Ventolin Hfa Inhaler - IH Q6H PRN SHORT OF BREATH/WHEEZING Albuterol/Ipratropium 1 amp 07/30/20 16:00 07/31/20 08:00 Duoneb - NEB 1 amp RQID [facility] Administration Aspirin 81 mg 07/30/20 20:30 07/31/20 09:23 Asa - PO 81 mg DAILY [facility] Administration Atorvastatin Calcium 80 mg 07/30/20 20:28 07/30/20 21:09 Lipitor - GT 80 mg HS [facility] Administration Chlorhexidine Gluconate 1 applic 07/30/20 22:00 07/30/20 21:11 Hibiclens For Decolonization - TP 1 applic HS [facility] Administration Enoxaparin Sodium 40 mg 07/31/20 10:00 07/31/20 10:08 Lovenox - SQ 40 mg DAILY [facility] Administration Escitalopram Oxalate 10 mg 07/31/20 10:00 07/31/20 10:05 Lexapro Oral Solution - GT 10 mg DAILY [facility] Administration Fluticasone Propionate 1 spray 07/30/20 22:00 07/31/20 10:06 Flonase - NS 1 spray BID [facility] Administration Gabapentin 200 mg 07/30/20 22:00 07/31/20 06:33 Neurontin Oral Liquid - GT 200 mg TID [facility] Administration Ceftriaxone Sodium 1 gm/ 50 mls @ 100 mls/hr 07/31/20 10:00 07/31/20 10:16 Dextrose IVPB 100 mls/hr DAILY [facility] Administration Levothyroxine Sodium 200 mcg 07/31/20 07:00 07/31/20 06:52 Synthroid - NR 200 mcg DAILY@0700 [facility] Administration Mometasone Furoate 1 puff 07/30/20 22:00 07/31/20 00:12 Asmanex 110mcg - IH Not Given HS [facility] Mupirocin 1 applic 07/30/20 22:00 07/31/20 09:24 Bactroban Ointment (For Decolonization) - NS 08/04/20 21:59 1 applic BID [facility] Administration Pantoprazole Sodium 40 mg 07/30/20 11:30 07/31/20 09:44 Protonix Iv IVPUSH 40 mg DAILY [facility] Administration Impression 1. hyponatremia 2. hx cva 3. trache collar 4. peg tube 5. htn 6. hypothyroidism 7. r/o seizure Plan - mental status improved - pt with new cva - neurology follow up to decide on AED - restrict free water - monitor sodium levels - will give a salt tab - repeat labs in am
[2020-07-31] MEDS ORDERED: SODIUM CHLORIDE 1 GM TABLET PO ONE (14:30)
[2020-07-31] MEDS: CHLORHEXIDINE GLUCONATE 4% CLEANSER FOR DECOLONIZATION TP SCH (21:29)
[2020-07-31] MEDS: ATORVASTATIN CA 80 MG TABLET (FP) GT SCH (21:29)
[2020-08-01] MEDS: GABAPENTIN 250 MG/5 ML ORAL SOLUTION, 470 ML BOTTLE GT SCH ×3 (05:53→22:14)
[2020-08-01] MEDS: LEVOTHYROXINE NA 200 MCG TABLET NR SCH (06:17)
[2020-08-01 06:50] LABS: HEMATOCRIT 26.7 % (35.4-49); MCH 27.3 pg (25.7-33.7); MCHC 33.7 g/dl (32.0-35.9); MEAN PLT VOLUME 7.5 fl (7.5-11.1); PLATELET COUNT 364 K/MM3 (134-434); RDW 15.8 % (11.9-15.9); WHITE BLOOD COUNT 7.9 K/mm3 (4.0-10.0)
[2020-08-01 07:30] LABS: POTASSIUM 4.3 mmol/L (3.5-5.1)
[2020-08-01 07:39] LABS: BILIRUBIN,TOTAL 0.4 mg/dL (0.2-1); BLOOD UREA NITROGEN 13.2 mg/dL (7-18); CALCIUM 8.4 mg/dL (8.5-10.1); CREATININE 0.6 mg/dL (0.55-1.3); MAGNESIUM 1.9 mg/dL (1.8-2.4); PHOSPHOROUS 3.4 mg/dL (2.5-4.9); TOT PROT 6.8 g/dl (6.4-8.2)
[2020-08-01] MEDS: ALBUTEROL SO4 2.5/IPRATROPIUM 0.5 INH SOL 3 ML VIAL.NEB. NEB SCH ×4 (08:00→20:16)
[2020-08-01] MEDS ORDERED: ALBUTEROL SO4 HFA INHALER IH PRN (08:39)
[2020-08-01] MEDS ORDERED: CEFTRIAXONE 1 GM in DEXTROSE 5%-WATER - 50 ML IVPB SCH (10:00)
[2020-08-01] MEDS ORDERED: MUPIROCIN 2% TOPICAL OINTMENT FOR DECOLONIZATION NS SCH (10:00)
[2020-08-01] MEDS ORDERED: PT OWN MED DRAWER 7, Y5N ONE ×2 (10:09→13:48)
[2020-08-01] MEDS ORDERED: DEXTROSE 5%-WATER - 50 ML IVPB ONE (10:10)
[2020-08-01] MEDS ORDERED: cefTRIAXone SODIUM 1 GM VIAL ONE (10:10)
[2020-08-01] MEDS: ASPIRIN 81 MG CHEWABLE TABLETS PO SCH (10:13)
[2020-08-01] MEDS: ENOXAPARIN NA (PORCINE) 40 MG/0.4 ML DISP.SYRIN SQ SCH (10:13)
[2020-08-01] MEDS: PANTOPRAZOLE SODIUM 40 MG VIAL IVPUSH SCH (10:14)
[2020-08-01] MEDS: ESCITALOPRAM OXALATE 5 MG/5 ML GT SCH (10:14)
[2020-08-01] MEDS: FLUTICASONE PROP 0.05% 16 GM NASAL SPRAY NS SCH ×2 (10:15→22:05)
--- NOTE | 2020-08-01 11:07 | PN ---
Progress Note (short form) - Note Progress Note: PULMONARY Feeling better. Less secretions. No fevers. Vital Signs Period Temp Pulse Resp BP Sys/Calhoun Pulse Ox Last 24 Hr 98 F-99.1 F 58-83 18-26 136-191/60-82 95-100 Intake & Output 07/29/20 07/30/20 07/31/20 08/01/20 23:59 23:59 23:59 23:59 Intake Total 1270 1076 485 520 Output Total 450 450 100 Balance 820 626 385 520 Weight 77.111 kg 77.156 kg 69.4 kg Gen: NAD at rest Heart: RRR Lung: scattered rhonchi Abd: soft, nontender Ext: no edema CBC, BMP 08/01/20 05:35 08/01/20 05:35 Active Medications Albuterol Sulfate (Ventolin Hfa Inhaler -) 2 puff IH Q6H PRN PRN Reason: SHORT OF BREATH/WHEEZING Albuterol/Ipratropium (Duoneb -) 1 amp NEB RQID [facility] Aspirin (Asa -) 81 mg PO DAILY [facility] Last Admin: 08/01/20 10:13 Dose: 81 mg Documented by: Atorvastatin Calcium (Lipitor -) 80 mg GT HS [facility] Chlorhexidine Gluconate (Hibiclens For Decolonization -) 1 applic TP HS [facility] Enoxaparin Sodium (Lovenox -) 40 mg SQ DAILY [facility] Last Admin: 08/01/20 10:13 Dose: 40 mg Documented by: Escitalopram Oxalate (Lexapro Oral Solution -) 10 mg GT DAILY [facility] Last Admin: 08/01/20 10:14 Dose: 10 mg Documented by: Fluticasone Propionate (Flonase -) 1 spray NS BID [facility] Last Admin: 08/01/20 10:15 Dose: 1 spray Documented by: Gabapentin (Neurontin Oral Liquid -) 200 mg GT TID [facility] Ceftriaxone Sodium 1 gm/ (Dextrose) 50 mls @ 100 mls/hr IVPB DAILY [facility] Last Admin: 08/01/20 10:13 Dose: 100 mls/hr Documented by: Levothyroxine Sodium (Synthroid -) 200 mcg NR DAILY@0700 [facility] Mometasone Furoate (Asmanex 110mcg -) 1 puff IH HS [facility] Mupirocin (Bactroban Ointment (For Decolonization) -) 1 applic NS BID [facility] Stop: 08/04/20 21:59 Pantoprazole Sodium (Protonix Iv) 40 mg IVPUSH DAILY [facility] Last Admin: 08/01/20 10:14 Dose: 40 mg Documented by: A/P SUBJECTIVE: Pt seen and examined in the ICU. Mental status much improved. MRI brain confirming left parietal stroke. OBJECTIVE: Vital Signs Period Temp Pulse Resp BP Sys/Calhoun Pulse Ox Last 24 Hr 97.5 F-98.8 F 56-92 15-25 99-180/52-93 94-100 Intake & Output 07/28/20 07/29/20 07/30/20 07/31/20 23:59 23:59 23:59 23:59 Intake Total 520 1270 1076 100 Output Total 450 450 100 Balance 520 820 626 0 Weight 77.111 kg 77.111 kg 77.156 kg Gen: NAD at rest Heart: RRR Lung: decreased breath sounds at the bases Abd: soft, nontender Ext: no edema CBC, BMP 07/31/20 06:15 07/31/20 06:15 Active Medications Albuterol Sulfate (Ventolin Hfa Inhaler -) 2 puff IH Q6H PRN PRN Reason: SHORT OF BREATH/WHEEZING Albuterol/Ipratropium (Duoneb -) 1 amp NEB RQID [facility] Last Admin: 07/31/20 08:00 Dose: 1 amp Documented by: Aspirin (Asa -) 81 mg PO DAILY [facility] Last Admin: 07/31/20 09:23 Dose: 81 mg Documented by: Atorvastatin Calcium (Lipitor -) 80 mg GT HS [facility] Last Admin: 07/30/20 21:09 Dose: 80 mg Documented by: Chlorhexidine Gluconate (Hibiclens For Decolonization -) 1 applic TP HS [facility] Last Admin: 07/30/20 21:11 Dose: 1 applic Documented by: Enoxaparin Sodium (Lovenox -) 40 mg SQ DAILY [facility] Last Admin: 07/31/20 10:08 Dose: 40 mg Documented by: Escitalopram Oxalate (Lexapro Oral Solution -) 10 mg GT DAILY [facility] Last Admin: 07/31/20 10:05 Dose: 10 mg Documented by: Fluticasone Propionate (Flonase -) 1 spray NS BID [facility] Last Admin: 07/31/20 10:06 Dose: 1 spray Documented by: Gabapentin (Neurontin Oral Liquid -) 200 mg GT TID [facility] Last Admin: 07/31/20 06:33 Dose: 200 mg Documented by: Ceftriaxone Sodium 1 gm/ (Dextrose) 50 mls @ 100 mls/hr IVPB DAILY [facility] Last Admin: 07/31/20 10:16 Dose: 100 mls/hr Documented by: Levothyroxine Sodium (Synthroid -) 200 mcg NR DAILY@0700 [facility] Last Admin: 07/31/20 06:52 Dose: 200 mcg Documented by: Mometasone Furoate (Asmanex 110mcg -) 1 puff IH HS [facility] Last Admin: 07/31/20 00:12 Dose: Not Given Documented by: Mupirocin (Bactroban Ointment (For Decolonization) -) 1 applic NS BID [facility] Stop: 08/04/20 21:59 Last Admin: 07/31/20 09:24 Dose: 1 applic Documented by: Pantoprazole Sodium (Protonix Iv) 40 mg IVPUSH DAILY [facility] Last Admin: 07/31/20 09:44 Dose: 40 mg Documented by: ASSESSMENT AND PLAN: Altered Mental Status improved Acute CVA Pneumonia Likely Mucous Plug Hyponatremia Head/Neck Cancer s/p Tracheostomy HTN Hyperlipidemia Hypothyroidism h/o CVA - continue antibiotics - f/u cultures - inhaled bronchodilators - O2 to keep SpO2 >90% - DVT prophylaxis - can monitor on stroke floor
--- NOTE | 2020-08-01 11:34 | PN ---
Progress Note, [employer] - Note Progress Note: Selected Entries 08/01/20 08/01/20 08/01/20 00:00 00:58 02:00 Supper Temperature 98.7 F Pulse Rate 70 58 L Blood Pressure 139/60 137/60 O2 Sat by Pulse 95 Oximetry (%) Oxygen Delivery Trach Collar Method 08/01/20 08/01/20 08/01/20 04:00 04:47 06:00 Supper NPO Temperature 98.4 F Pulse Rate 60 59 L 64 Blood Pressure 148/67 172/69 H O2 Sat by Pulse 98 98 100 Oximetry (%) Oxygen Delivery Trach Collar Method 08/01/20 08/01/20 08/01/20 08:00 08:24 08:25 Supper Temperature 98 F Pulse Rate 64 64 61 Blood Pressure 154/60 141/70 O2 Sat by Pulse 100 Oximetry (%) Oxygen Delivery Nasal Cannula Method 08/01/20 09:00 Supper Temperature Pulse Rate Blood Pressure O2 Sat by Pulse Oximetry (%) Oxygen Delivery Room Air Method Laboratory Tests 08/01/20 05:35 WBC 7.9 Good vocal quality. Pt able to cough and expectorate small amount of secretions from oral cavity. Trach is plugged. More conversant, occasional word/phonemic errors eg "Ravinder" for bed. He insisted his is allowed to visit at "8" Pt is forgetful.He could not tell me if he has been eating by mouth at home or n ot, but knows he is NPO at this time. Discussed considering MBS as in pt or out pt for possible PO trials. Last MBS was May,. He seemed interested but I am not sure of his capacity, and yesterday he and his refused. Clinically, pt aspirates on thin liquid. Continue NPO. MBS is indicated, when pt and his agree. This can be done as an in pt or in the future as an out pt.
--- NOTE | 2020-08-01 12:29 | PN ---
Physical Exam: SUBJECTIVE: Patient seen and examined OBJECTIVE: Vital Signs Period Temp Pulse Resp BP Sys/Calhoun Pulse Ox Last 24 Hr 98 F-99.1 F 58-83 18-26 136-191/60-82 95-100 GENERAL: The patient is awake, alert, and fully oriented, in no acute distress. HEAD: Normal with no signs of trauma. EYES: PERRL, extraocular movements intact, sclera anicteric, conjunctiva clear. No ptosis. ENT: Ears normal, nares patent, oropharynx clear without exudates, moist mucous membranes. NECK: Trachea midline, full range of motion, supple. LUNGS: Breath sounds equal, clear to auscultation bilaterally, no wheezes, no crackles, no accessory muscle use. HEART: Regular rate and rhythm, S1, S2 without murmur, rub or gallop. ABDOMEN: Soft, nontender, nondistended, normoactive bowel sounds, no guarding, no rebound, no hepatosplenomegaly, no masses. EXTREMITIES: 2+ pulses, warm, well-perfused, no edema. NEUROLOGICAL: Cranial nerves II through XII grossly intact. Normal speech, gait not observed. PSYCH: Normal mood, normal affect. SKIN: Warm, dry, normal turgor, no rashes or lesions noted Laboratory Results - last 24 hr 08/01/20 08/01/20 05:35 05:35 WBC 7.9 RBC 3.30 L Hgb 9.0 L Hct 26.7 L D MCV 81.0 MCH 27.3 MCHC 33.7 RDW 15.8 Plt Count 364 MPV 7.5 Sodium 131 L Potassium 4.3 Chloride 97 L Carbon Dioxide 27 Anion Gap 7 L BUN 13.2 Creatinine 0.6 Est GFR (CKD-EPI)AfAm 112.40 Est GFR (CKD-EPI)NonAf 96.98 Random Glucose 112 H Calcium 8.4 L Phosphorus 3.4 Magnesium 1.9 Total Bilirubin 0.4 AST 27 ALT 8 L Alkaline Phosphatase 63 Total Protein 6.8 Albumin 2.0 L Active Medications Generic Name Dose Route Start Last Admin Trade Name Freq PRN Reason Stop Dose Admin Albuterol Sulfate 2 puff 08/01/20 08:39 Ventolin Hfa Inhaler - IH Q6H PRN SHORT OF BREATH/WHEEZING Albuterol/Ipratropium 1 amp 08/01/20 12:00 08/01/20 11:30 Duoneb - NEB 1 amp RQID [facility] Administration Aspirin 81 mg 08/01/20 10:00 08/01/20 10:13 Asa - PO 81 mg DAILY [facility] Administration Atorvastatin Calcium 80 mg 08/01/20 22:00 Lipitor - GT HS [facility] Chlorhexidine Gluconate 1 applic 08/01/20 22:00 Hibiclens For Decolonization - TP HS [facility] Enoxaparin Sodium 40 mg 08/01/20 10:00 08/01/20 10:13 Lovenox - SQ 40 mg DAILY [facility] Administration Escitalopram Oxalate 10 mg 08/01/20 10:00 08/01/20 10:14 Lexapro Oral Solution - GT 10 mg DAILY [facility] Administration Fluticasone Propionate 1 spray 08/01/20 10:00 08/01/20 10:15 Flonase - NS 1 spray BID [facility] Administration Gabapentin 200 mg 08/01/20 14:00 Neurontin Oral Liquid - GT TID [facility] Piperacillin Sod/Tazobactam 100 mls @ 200 mls/hr 08/01/20 12:30 Sod 4.5 gm/ Dextrose IVPB Q6H-IV [facility] Protocol Levothyroxine Sodium 200 mcg 08/02/20 07:00 Synthroid - NR DAILY@0700 [facility] Mometasone Furoate 1 puff 08/01/20 22:00 Asmanex 110mcg - IH [facility] Mupirocin 1 applic 08/01/20 10:00 Bactroban Ointment (For Decolonization) - NS 08/04/20 21:59 BID [facility] Pantoprazole Sodium 40 mg 08/01/20 10:00 08/01/20 10:14 Protonix Iv IVPUSH 40 mg DAILY [facility] Administration ASSESSMENT/PLAN:
--- NOTE | 2020-08-01 12:35 | PN ---
Physical Exam: SUBJECTIVE: Patient seen and examined at the bedside. awake and alert and asking for food. tells me that at home he eats by mouth as well as peg tube feeds. he had a swallow eval today with [employer] OBJECTIVE: Patient is a 75 year old male with past medical history of head/neck cancer s/p tracheostomy, HTN, recent CVA with residual right sided weakness 6 months ago. Patient was on the floor when he had change in mental status. A head CT and MRI was preformed which showed a new acute left parietal lobe infarct. patient was sent to the icu for closer monitoring and now being monitored on tele. Vital Signs Period Temp Pulse Resp BP Sys/Calhoun Pulse Ox Last 24 Hr 98 F-99.1 F 58-83 18-26 136-191/60-82 95-100 HENT: Yes: WNL Neck: Yes: Other (trach) Cardiovascular: Yes: Regular Rate and Rhythm Respiratory: Yes: CTA Bilaterally Gastrointestinal: Yes: Other (peg tube) Musculoskeletal: Yes: Other (right sided weakness) Edema: No Peripheral Pulses WNL: Yes Integumentary: Yes: WNL Laboratory Results - last 24 hr 08/01/20 08/01/20 05:35 05:35 WBC 7.9 RBC 3.30 L Hgb 9.0 L Hct 26.7 L D MCV 81.0 MCH 27.3 MCHC 33.7 RDW 15.8 Plt Count 364 MPV 7.5 Sodium 131 L Potassium 4.3 Chloride 97 L Carbon Dioxide 27 Anion Gap 7 L BUN 13.2 Creatinine 0.6 Est GFR (CKD-EPI)AfAm 112.40 Est GFR (CKD-EPI)NonAf 96.98 Random Glucose 112 H Calcium 8.4 L Phosphorus 3.4 Magnesium 1.9 Total Bilirubin 0.4 AST 27 ALT 8 L Alkaline Phosphatase 63 Total Protein 6.8 Albumin 2.0 L Active Medications Generic Name Dose Route Start Last Admin Trade Name Freq PRN Reason Stop Dose Admin Albuterol Sulfate 2 puff 08/01/20 08:39 Ventolin Hfa Inhaler - IH Q6H PRN SHORT OF BREATH/WHEEZING Albuterol/Ipratropium 1 amp 08/01/20 12:00 08/01/20 11:30 Duoneb - NEB 1 amp RQID [facility] Administration Aspirin 81 mg 08/01/20 10:00 08/01/20 10:13 Asa - PO 81 mg DAILY [facility] Administration Atorvastatin Calcium 80 mg 08/01/20 22:00 Lipitor - GT HS [facility] Chlorhexidine Gluconate 1 applic 08/01/20 22:00 Hibiclens For Decolonization - TP HS [facility] Enoxaparin Sodium 40 mg 08/01/20 10:00 08/01/20 10:13 Lovenox - SQ 40 mg DAILY [facility] Administration Escitalopram Oxalate 10 mg 08/01/20 10:00 08/01/20 10:14 Lexapro Oral Solution - GT 10 mg DAILY [facility] Administration Fluticasone Propionate 1 spray 08/01/20 10:00 08/01/20 10:15 Flonase - NS 1 spray BID [facility] Administration Gabapentin 200 mg 08/01/20 14:00 Neurontin Oral Liquid - GT TID [facility] Piperacillin Sod/Tazobactam 100 mls @ 200 mls/hr 08/01/20 12:30 Sod 4.5 gm/ Dextrose IVPB Q6H-IV [facility] Protocol Levothyroxine Sodium 200 mcg 08/02/20 07:00 Synthroid - NR DAILY@0700 [facility] Mometasone Furoate 1 puff 08/01/20 22:00 Asmanex 110mcg - IH HS [facility] Mupirocin 1 applic 08/01/20 10:00 Bactroban Ointment (For Decolonization) - NS 08/04/20 21:59 BID [facility] Pantoprazole Sodium 40 mg 08/01/20 10:00 08/01/20 10:14 Protonix Iv IVPUSH 40 mg DAILY [facility] Administration ASSESSMENT/PLAN: Problem List - Problems (1) Acute metabolic encephalopathy Assessment/Plan: acute metabolic encephalopathy on 07/30 and found to have an acute left pareital acute ischemic lesion. patient was sent to icu for closer monitoring. eeg was normal followed by neurologist on ASA, statin therapy speech and swallow following PT follwowing Code(s): G93.41 - METABOLIC ENCEPHALOPATHY (2) Head and neck cancer Assessment/Plan: head and nect cancer s/p trach Code(s): C76.0 - MALIGNANT NEOPLASM OF HEAD, FACE AND NECK (3) Hypertension Assessment/Plan: bp stable. on amlodopine Code(s): I10 - ESSENTIAL (PRIMARY) HYPERTENSION (4) CVA (cerebral vascular accident) Assessment/Plan: patient with a history of CVA with right sided weakness. had episode of AMS and found to have new left pariatal infarct. Head ct with no cute changess. brain MRI confirmed new left parital stroke. stroke protocol initiated: on asa, lipitor, swallow eval and PT monitor on tele Code(s): I63.9 - CEREBRAL INFARCTION, UNSPECIFIED (5) CVA, old, hemiparesis Assessment/Plan: right sided deficits from old CVA Code(s): I69.359 - HEMIPLGA FOLLOWING CEREBRAL INFARCTION AFFECTING UNSP SIDE (6) DVT prophylaxis Assessment/Plan: on lovenox Code(s): Z29.9 - ENCOUNTER FOR PROPHYLACTIC MEASURES, UNSPECIFIED (7) Hyponatremia Assessment/Plan: improved with fluid restriction. daily cmp ordered to monitor closely. Code(s): E87.1 - HYPO-OSMOLALITY AND HYPONATREMIA (8) Pneumonia Assessment/Plan: on zosyn for psedomonas aeruginosa on sputum culture Code(s): J18.9 - PNEUMONIA, UNSPECIFIED ORGANISM (9) Hypothyroidism Assessment/Plan: continue synthroid Code(s): E03.9 - HYPOTHYROIDISM, UNSPECIFIED (10) Prophylactic measure Assessment/Plan: lovenox physical therapy full code Code(s): Z29.9 - ENCOUNTER FOR PROPHYLACTIC MEASURES, UNSPECIFIED Visit type - Emergency Visit Emergency Visit: Yes ED Registration Date: 07/27/20 Care time: The patient presented to the Emergency Department on the above date and was hospitalized for further evaluation of their emergent condition. - New Patient This patient is new to me today: Yes Date on this admission: 08/02/20 - Critical Care Critical Care patient: No - Discharge Referral Referred to [facility] No - Medication Review Med list reviewed for High Risk Meds patients 65 and older: Yes
[2020-08-01 13:41] LABS: BLOOD UREA NITROGEN 15.4 mg/dL (7-18); CALCIUM 8.5 mg/dL (8.5-10.1); CREATININE 0.6 mg/dL (0.55-1.3); POTASSIUM 3.5 mmol/L (3.5-5.1)
[2020-08-01] MEDS ORDERED: PIPERACILLIN/TAZOBACTAM 4.5 GM VIAL IVPB ONE ×2 (13:48→20:38)
[2020-08-01] MEDS ORDERED: DEXTROSE 5%-WATER 100 ML IVPB ONE ×2 (13:48→20:39)
[2020-08-01] MEDS: PIPERACILLIN/TAZOB 4.5 GM 4.5 GM in DEXTROSE 5%-WATER 100 ML IVPB SCH ×3 (13:58→21:56)
--- NOTE | 2020-08-01 15:27 | PN ---
Progress Note, Physician History of Present Illness: Pt seen and examine at bedside. He is awake and alert. - Current Medication List Current Medications: Active Medications Albuterol Sulfate (Ventolin Hfa Inhaler -) 2 puff IH Q6H PRN PRN Reason: SHORT OF BREATH/WHEEZING Albuterol/Ipratropium (Duoneb -) 1 amp NEB RQID [facility] Last Admin: 08/01/20 11:30 Dose: 1 amp Documented by: Aspirin (Asa -) 81 mg PO DAILY [facility] Last Admin: 08/01/20 10:13 Dose: 81 mg Documented by: Atorvastatin Calcium (Lipitor -) 80 mg GT HS [facility] Chlorhexidine Gluconate (Hibiclens For Decolonization -) 1 applic TP HS [facility] Enoxaparin Sodium (Lovenox -) 40 mg SQ DAILY [facility] Last Admin: 08/01/20 10:13 Dose: 40 mg Documented by: Escitalopram Oxalate (Lexapro Oral Solution -) 10 mg GT DAILY [facility] Last Admin: 08/01/20 10:14 Dose: 10 mg Documented by: Fluticasone Propionate (Flonase -) 1 spray NS BID [facility] Last Admin: 08/01/20 10:15 Dose: 1 spray Documented by: Gabapentin (Neurontin Oral Liquid -) 200 mg GT TID [facility] Last Admin: 08/01/20 13:58 Dose: 200 mg Documented by: Piperacillin Sod/Tazobactam (Sod 4.5 gm/ Dextrose) 100 mls @ 200 mls/hr IVPB Q6H-IV [facility]; Protocol Last Admin: 08/01/20 13:58 Dose: 200 mls/hr Documented by: Levothyroxine Sodium (Synthroid -) 200 mcg NR DAILY@0700 [facility] Mometasone Furoate (Asmanex 110mcg -) 1 puff IH HS [facility] Mupirocin (Bactroban Ointment (For Decolonization) -) 1 applic NS BID [facility] Stop: 08/04/20 21:59 Pantoprazole Sodium (Protonix Iv) 40 mg IVPUSH DAILY [facility] Last Admin: 08/01/20 10:14 Dose: 40 mg Documented by: - Objective Vital Signs: Vital Signs Temperature 98 F 08/01/20 08:24 Pulse Rate 63 08/01/20 12:24 Respiratory Rate 18 08/01/20 12:24 Blood Pressure 166/74 08/01/20 12:24 O2 Sat by Pulse Oximetry (%) 100 08/01/20 12:24 Constitutional: Yes: Calm Eyes: Yes: Conjunctiva Clear Cardiovascular: Yes: S1, S2 Respiratory: Yes: Other (trache) Gastrointestinal: Yes: Soft Genitourinary: Yes: Incontinence Neurological: Yes: Oriented, Pre-Existing Deficit Psychiatric: Yes: Oriented Labs: CBC, BMP 08/01/20 05:35 08/01/20 12:46 Assessment/Plan Current Medications Generic Name Dose Route Start Last Admin Trade Name Freq PRN Reason Stop Dose Admin Albuterol Sulfate 2 puff 08/01/20 08:39 Ventolin Hfa Inhaler - IH Q6H PRN SHORT OF BREATH/WHEEZING Albuterol/Ipratropium 1 amp 08/01/20 12:00 08/01/20 11:30 Duoneb - NEB 1 amp RQID [facility] Administration Aspirin 81 mg 08/01/20 10:00 08/01/20 10:13 Asa - PO 81 mg DAILY [facility] Administration Atorvastatin Calcium 80 mg 08/01/20 22:00 Lipitor - GT HS [facility] Chlorhexidine Gluconate 1 applic 08/01/20 22:00 Hibiclens For Decolonization - TP HS [facility] Enoxaparin Sodium 40 mg 08/01/20 10:00 08/01/20 10:13 Lovenox - SQ 40 mg DAILY [facility] Administration Escitalopram Oxalate 10 mg 08/01/20 10:00 08/01/20 10:14 Lexapro Oral Solution - GT 10 mg DAILY [facility] Administration Fluticasone Propionate 1 spray 08/01/20 10:00 08/01/20 10:15 Flonase - NS 1 spray BID [facility] Administration Gabapentin 200 mg 08/01/20 14:00 08/01/20 13:58 Neurontin Oral Liquid - GT 200 mg TID [facility] Administration Piperacillin Sod/Tazobactam 100 mls @ 200 mls/hr 08/01/20 12:45 08/01/20 13:58 Sod 4.5 gm/ Dextrose IVPB 200 mls/hr Q6H-IV [facility] Administration Protocol Levothyroxine Sodium 200 mcg 08/02/20 07:00 Synthroid - NR DAILY@0700 [facility] Mometasone Furoate 1 puff 08/01/20 22:00 Asmanex 110mcg - IH HS [facility] Mupirocin 1 applic 08/01/20 10:00 Bactroban Ointment (For Decolonization) - NS 08/04/20 21:59 BID [facility] Pantoprazole Sodium 40 mg 08/01/20 10:00 08/01/20 10:14 Protonix Iv IVPUSH 40 mg DAILY [facility] Administration Impression 1. hyponatremia 2. hx cva 3. trache collar 4. peg tube 5. htn 6. hypothyroidism 7. r/o seizure Plan - sodium improving - cont free water restriction - mental status improved - pt with new cva - neurology follow up to decide on AED - monitor sodium levels - repeat labs in am
--- NOTE | 2020-08-01 15:29 | PN ---
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 He came to hospital or episodes of unreponsiveness and hypoxic, he wa son regular floor and he was brought to icu for furhter observation . Patient has residual right sided hemiparesis . He has mri of brain done and also have hyponatremia during hospitalization. There is no fever , nad he was also started on abx empirically for penumonia. -- patient is back to normal, and his mri of brain showed there is small lacunar acute ischemic lesion NEUROLOGICAL EXAMINATION Alert and oriented x 3, feeling good, afebrile vss neck is supple afebrile vss eomi, pupils reactive no face asymmetry right arm weaknes supto grade 2 and moving left uper extremity and both lower extremity mri ofbrain showed left parietal acute stroke eeg is normal Assessment/Plan 75 year old male with past medical history of head/neck cancer s/p tracheostomy, HTN, 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 left pareital acute ischemic lesion, eeg is normal. - recurrent episode of unresponsiveness and becoming obtunded , unlikley to seizure Plan-- add aspirin, continue statin, - continue abx as per ID - eeg is noraml - 35 cc time Thanking you so much Christy Prince MD
[2020-08-01] MEDS: ATORVASTATIN CA 80 MG TABLET (FP) GT SCH (21:58)
[2020-08-01] MEDS ORDERED: CHLORHEXIDINE GLUCONATE 4% CLEANSER FOR DECOLONIZATION TP SCH (22:00)
[2020-08-01] MEDS: MOMETASONE FUROATE 110 MCG/IH INHALER IH SCH (22:07)
[2020-08-02] MEDS ORDERED: PIPERACILLIN/TAZOBACTAM 4.5 GM VIAL IVPB ONE ×4 (01:51→19:42)
[2020-08-02] MEDS ORDERED: DEXTROSE 5%-WATER 100 ML IVPB ONE ×4 (01:51→19:42)
[2020-08-02] MEDS: PIPERACILLIN/TAZOB 4.5 GM 4.5 GM in DEXTROSE 5%-WATER 100 ML IVPB SCH ×4 (02:13→21:03)
[2020-08-02] MEDS: LEVOTHYROXINE NA 100 MCG TABLET (FP) NR SCH (06:18)
[2020-08-02] MEDS: GABAPENTIN 250 MG/5 ML ORAL SOLUTION, 470 ML BOTTLE GT SCH ×3 (06:19→21:04)
[2020-08-02 07:22] LABS: BLOOD UREA NITROGEN 17.3 mg/dL (7-18); CALCIUM 8.4 mg/dL (8.5-10.1); POTASSIUM 4.2 mmol/L (3.5-5.1)
[2020-08-02 07:23] LABS: CREATININE 0.7 mg/dL (0.55-1.3)
[2020-08-02] MEDS: ALBUTEROL SO4 2.5/IPRATROPIUM 0.5 INH SOL 3 ML VIAL.NEB. NEB SCH ×4 (07:48→20:30)
--- NOTE | 2020-08-02 07:48 | PN ---
Progress Note, Physician History of Present Illness: PULMONARY ALERT,COMFORTABLE,-RESP DISTRESS - Current Medication List Current Medications: Active Medications Albuterol Sulfate (Ventolin Hfa Inhaler -) 2 puff IH Q6H PRN PRN Reason: SHORT OF BREATH/WHEEZING Albuterol/Ipratropium (Duoneb -) 1 amp NEB RQID [facility] Last Admin: 08/01/20 20:16 Dose: 1 amp Documented by: Aspirin (Asa -) 81 mg PO DAILY [facility] Last Admin: 08/01/20 10:13 Dose: 81 mg Documented by: Atorvastatin Calcium (Lipitor -) 80 mg GT HS [facility] Last Admin: 08/01/20 21:58 Dose: 80 mg Documented by: Enoxaparin Sodium (Lovenox -) 40 mg SQ DAILY [facility] Last Admin: 08/01/20 10:13 Dose: 40 mg Documented by: Escitalopram Oxalate (Lexapro Oral Solution -) 10 mg GT DAILY [facility] Last Admin: 08/01/20 10:14 Dose: 10 mg Documented by: Fluticasone Propionate (Flonase -) 1 spray NS BID [facility] Last Admin: 08/01/20 22:05 Dose: 1 spray Documented by: Gabapentin (Neurontin Oral Liquid -) 200 mg GT TID [facility] Last Admin: 08/02/20 06:19 Dose: 200 mg Documented by: Piperacillin Sod/Tazobactam (Sod 4.5 gm/ Dextrose) 100 mls @ 200 mls/hr IVPB Q6H-IV [facility]; Protocol Last Admin: 08/02/20 02:13 Dose: 200 mls/hr Documented by: Levothyroxine Sodium (Synthroid -) 200 mcg NR DAILY@0700 [facility] Last Admin: 08/02/20 06:18 Dose: 200 mcg Documented by: Mometasone Furoate (Asmanex 110mcg -) 1 puff IH HS [facility] Last Admin: 08/01/20 22:07 Dose: 1 puff Documented by: Pantoprazole Sodium (Protonix Iv) 40 mg IVPUSH DAILY [facility] Last Admin: 08/01/20 10:14 Dose: 40 mg Documented by: - Objective Vital Signs: Vital Signs Temperature 97.7 F 08/02/20 06:00 Pulse Rate 73 08/02/20 06:00 Respiratory Rate 20 08/02/20 01:22 Blood Pressure 137/77 08/02/20 06:00 O2 Sat by Pulse Oximetry (%) 94 L 08/01/20 22:00 Constitutional: Yes: Well Nourished, Calm Eyes: Yes: WNL HENT: Yes: WNL Neck: Yes: Supple (TRACH) Cardiovascular: Yes: Regular Rate and Rhythm, S1, S2 Respiratory: Yes: Diminished Gastrointestinal: Yes: Normal Bowel Sounds, Soft Extremities: Yes: WNL Edema: No Labs: CBC, BMP Laboratory Tests 08/02/20 05:34 Sodium 135 L Potassium 4.2 Chloride 100 Carbon Dioxide 29 Anion Gap 6 L BUN 17.3 Creatinine 0.7 Assessment/Plan ASSESSMENT AND PLAN: Altered Mental Status improved S/P Acute CVA Pneumonia clinically improving Likely Mucous Plug Hyponatremia Head/Neck Cancer s/p Tracheostomy HTN Hyperlipidemia Hypothyroidism h/o CVA - antibiotics - f/u cultures - inhaled bronchodilators - O2 to keep SpO2 >90% - DVT prophylaxis - chest x-ray DR ORTIZ
[2020-08-02] MEDS ORDERED: PT OWN MED DRAWER 7, Y5N ONE (08:48)
[2020-08-02] MEDS: PANTOPRAZOLE SODIUM 40 MG VIAL IVPUSH SCH (09:06)
[2020-08-02] MEDS: ENOXAPARIN NA (PORCINE) 40 MG/0.4 ML DISP.SYRIN SQ SCH (09:06)
[2020-08-02] MEDS: ESCITALOPRAM OXALATE 5 MG/5 ML GT SCH (09:07)
[2020-08-02] MEDS: ASPIRIN 81 MG CHEWABLE TABLETS PO SCH (09:07)
[2020-08-02] MEDS: FLUTICASONE PROP 0.05% 16 GM NASAL SPRAY NS SCH (09:09)
--- NOTE | 2020-08-02 09:47 | PN ---
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 He came to hospital or episodes of unreponsiveness and hypoxic, he wa son regular floor and he was brought to icu for furhter observation . Patient has residual right sided hemiparesis . He has mri of brain done and also have hyponatremia during hospitalization. There is no fever , nad he was also started on abx empirically for penumonia. -- no new symptoms, pateint is back to regular floor NEUROLOGICAL EXAMINATION Alert and oriented x 3, feeling good, afebrile vss neck is supple afebrile vss eomi, pupils reactive no face asymmetry right arm weaknes supto grade 2 and moving left uper extremity and both lower extremity mri ofbrain showed left parietal acute stroke eeg is normal Assessment/Plan 75 year old male with past medical history of head/neck cancer s/p tracheostomy, HTN, 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 left pareital acute ischemic lesion, eeg is normal. - recurrent episode of unresponsiveness and becoming obtunded , unlikley to seizure Plan-- add aspirin, continue statin, - continue abx as per ID - eeg is noraml - continue supportive care Thanking you so much Christy Prince MD
--- NOTE | 2020-08-02 11:50 | PN ---
Progress Note, WEB OPERATIONS ADMINISTRATOR - Note Progress Note: Selected Entries 08/02/20 08/02/20 08/02/20 01:22 06:00 07:52 Supper NPO Temperature 98.2 F 97.7 F Pulse Rate 65 73 Blood Pressure 128/69 137/77 Weight 165 lb 3.2 oz Laboratory Tests 08/01/20 05:35 WBC 7.9 Impaired memory. Intermittently confused, resistant to questions. Continue NPO. MBS is indicated, when pt and his agree. This can be done as an in pt or in the future as an out pt.
--- NOTE | 2020-08-02 13:04 | PN ---
Progress Note, Physician History of Present Illness: Pt seen and examined at bedside. He is awake and alert. - Current Medication List Current Medications: Active Medications Albuterol Sulfate (Ventolin Hfa Inhaler -) 2 puff IH Q6H PRN PRN Reason: SHORT OF BREATH/WHEEZING Albuterol/Ipratropium (Duoneb -) 1 amp NEB RQID [facility] Last Admin: 08/02/20 11:53 Dose: 1 amp Documented by: Aspirin (Asa -) 81 mg PO DAILY [facility] Last Admin: 08/02/20 09:07 Dose: 81 mg Documented by: Atorvastatin Calcium (Lipitor -) 80 mg GT HS [facility] Last Admin: 08/01/20 21:58 Dose: 80 mg Documented by: Enoxaparin Sodium (Lovenox -) 40 mg SQ DAILY [facility] Last Admin: 08/02/20 09:06 Dose: 40 mg Documented by: Escitalopram Oxalate (Lexapro Oral Solution -) 10 mg GT DAILY [facility] Last Admin: 08/02/20 09:07 Dose: 5 ml Documented by: Fluticasone Propionate (Flonase -) 1 spray NS BID [facility] Last Admin: 08/02/20 09:09 Dose: 1 spray Documented by: Gabapentin (Neurontin Oral Liquid -) 200 mg GT TID [facility] Last Admin: 08/02/20 06:19 Dose: 200 mg Documented by: Piperacillin Sod/Tazobactam (Sod 4.5 gm/ Dextrose) 100 mls @ 200 mls/hr IVPB Q6H-IV [facility]; Protocol Last Admin: 08/02/20 09:06 Dose: 200 mls/hr Documented by: Levothyroxine Sodium (Synthroid -) 200 mcg NR DAILY@0700 [facility] Last Admin: 08/02/20 06:18 Dose: 200 mcg Documented by: Mometasone Furoate (Asmanex 110mcg -) 1 puff IH HS [facility] Last Admin: 08/01/20 22:07 Dose: 1 puff Documented by: Pantoprazole Sodium (Protonix Iv) 40 mg IVPUSH DAILY [facility] Last Admin: 08/02/20 09:06 Dose: 40 mg Documented by: - Objective Vital Signs: Vital Signs Temperature 97.7 F 08/02/20 10:00 Pulse Rate 86 08/02/20 10:00 Respiratory Rate 20 08/02/20 09:00 Blood Pressure 132/90 08/02/20 10:00 O2 Sat by Pulse Oximetry (%) 95 08/02/20 10:00 Constitutional: Yes: Calm Eyes: Yes: Conjunctiva Clear Neck: Yes: Other (trache) Cardiovascular: Yes: S1, S2 Respiratory: Yes: Other (trache) Gastrointestinal: Yes: Soft Genitourinary: Yes: Incontinence Musculoskeletal: Yes: Muscle Weakness Edema: No Neurological: Yes: Oriented, Pre-Existing Deficit Labs: CBC, BMP 08/01/20 05:35 08/02/20 05:34 Assessment/Plan Current Medications Generic Name Dose Route Start Last Admin Trade Name Freq PRN Reason Stop Dose Admin Albuterol Sulfate 2 puff 08/01/20 08:39 Ventolin Hfa Inhaler - IH Q6H PRN SHORT OF BREATH/WHEEZING Albuterol/Ipratropium 1 amp 08/01/20 12:00 08/02/20 11:53 Duoneb - NEB 1 amp RQID [facility] Administration Aspirin 81 mg 08/01/20 10:00 08/02/20 09:07 Asa - PO 81 mg DAILY [facility] Administration Atorvastatin Calcium 80 mg 08/01/20 22:00 08/01/20 21:58 Lipitor - GT 80 mg HS [facility] Administration Enoxaparin Sodium 40 mg 08/01/20 10:00 08/02/20 09:06 Lovenox - SQ 40 mg DAILY [facility] Administration Escitalopram Oxalate 10 mg 08/01/20 10:00 08/02/20 09:07 Lexapro Oral Solution - GT 5 ml DAILY [facility] Administration Fluticasone Propionate 1 spray 08/01/20 10:00 08/02/20 09:09 Flonase - NS 1 spray BID [facility] Administration Gabapentin 200 mg 08/01/20 14:00 08/02/20 06:19 Neurontin Oral Liquid - GT 200 mg TID [facility] Administration Piperacillin Sod/Tazobactam 100 mls @ 200 mls/hr 08/01/20 12:45 08/02/20 09:06 Sod 4.5 gm/ Dextrose IVPB 200 mls/hr Q6H-IV [facility] Administration Protocol Levothyroxine Sodium 200 mcg 08/02/20 07:00 08/02/20 06:18 Synthroid - NR 200 mcg DAILY@0700 [facility] Administration Mometasone Furoate 1 puff 08/01/20 22:00 08/01/20 22:07 Asmanex 110mcg - IH 1 puff HS [facility] Administration Pantoprazole Sodium 40 mg 08/01/20 10:00 08/02/20 09:06 Protonix Iv IVPUSH 40 mg DAILY [facility] Administration Impression 1. hyponatremia 2. hx cva 3. trache collar 4. peg tube 5. htn 6. hypothyroidism 7. r/o seizure 8. chronic resp failure Plan - sodium stabilizing - pt tolerating feeds - cont free water restriction - neurology follow up to decide on AED - monitor sodium levels - repeat labs in am
--- NOTE | 2020-08-02 18:04 | PN ---
Physical Exam: SUBJECTIVE: Patient seen and examined OBJECTIVE: Patient is a 75 year old male with past medical history of head/neck cancer s/p tracheostomy, HTN, recent CVA with residual right sided weakness 6 months ago. Patient was on the floor when he had change in mental status. A head CT and MRI was preformed which showed a new acute left parietal lobe infarct. patient was sent to the icu for closer monitoring and now being monitored on tele. Vital Signs Period Temp Pulse Resp BP Sys/Calhoun Pulse Ox Last 24 Hr 97.7 F-99 F 64-86 20-20 122-137/61-90 93-95 HENT: Yes: WNL Neck: Yes: Other (trach) Cardiovascular: Yes: Regular Rate and Rhythm Respiratory: Yes: CTA Bilaterally Gastrointestinal: Yes: Other (peg tube) Musculoskeletal: Yes: Other (right sided weakness) Edema: No Peripheral Pulses WNL: Yes Integumentary: Yes: WNL Laboratory Results - last 24 hr 08/02/20 05:34 Sodium 135 L Potassium 4.2 Chloride 100 Carbon Dioxide 29 Anion Gap 6 L BUN 17.3 Creatinine 0.7 Est GFR (CKD-EPI)AfAm 105.50 Est GFR (CKD-EPI)NonAf 91.03 Random Glucose 102 Calcium 8.4 L Active Medications Generic Name Dose Route Start Last Admin Trade Name Freq PRN Reason Stop Dose Admin Albuterol Sulfate 2 puff 08/01/20 08:39 Ventolin Hfa Inhaler - IH Q6H PRN SHORT OF BREATH/WHEEZING Albuterol/Ipratropium 1 amp 08/01/20 12:00 08/02/20 16:28 Duoneb - NEB 1 amp RQID [facility] Administration Aspirin 81 mg 08/02/20 17:51 Asa - GT DAILY [facility] Atorvastatin Calcium 80 mg 08/01/20 22:00 08/01/20 21:58 Lipitor - GT 80 mg HS [facility] Administration Enoxaparin Sodium 40 mg 08/01/20 10:00 08/02/20 09:06 Lovenox - SQ 40 mg DAILY [facility] Administration Escitalopram Oxalate 10 mg 08/01/20 10:00 08/02/20 09:07 Lexapro Oral Solution - GT 5 ml DAILY [facility] Administration Fluticasone Propionate 1 spray 08/01/20 10:00 08/02/20 09:09 Flonase - NS 1 spray BID [facility] Administration Gabapentin 200 mg 08/01/20 14:00 08/02/20 14:07 Neurontin Oral Liquid - GT 5 ml TID [facility] Administration Piperacillin Sod/Tazobactam 100 mls @ 200 mls/hr 08/01/20 12:45 08/02/20 14:08 Sod 4.5 gm/ Dextrose IVPB 200 mls/hr Q6H-IV [facility] Administration Protocol Levothyroxine Sodium 200 mcg 08/02/20 07:00 08/02/20 06:18 Synthroid - NR 200 mcg DAILY@0700 [facility] Administration Mometasone Furoate 1 puff 08/01/20 22:00 08/01/20 22:07 Asmanex 110mcg - IH 1 puff HS [facility] Administration Pantoprazole Sodium 40 mg 08/01/20 10:00 08/02/20 09:06 Protonix Iv IVPUSH 40 mg DAILY [facility] Administration ASSESSMENT/PLAN: Problem List - Problems (1) Acute metabolic encephalopathy Assessment/Plan: acute metabolic encephalopathy on 07/30 and found to have an acute left pareital acute ischemic lesion. patient was sent to icu for closer monitoring. eeg was normal followed by neurologist on ASA, statin therapy speech and swallow following PT follwowing Code(s): G93.41 - METABOLIC ENCEPHALOPATHY (2) Head and neck cancer Assessment/Plan: head and nect cancer s/p trach Code(s): C76.0 - MALIGNANT NEOPLASM OF HEAD, FACE AND NECK (3) Hypertension Assessment/Plan: bp stable. on amlodopine Code(s): I10 - ESSENTIAL (PRIMARY) HYPERTENSION (4) CVA (cerebral vascular accident) Assessment/Plan: patient with a history of CVA with right sided weakness. had episode of AMS and found to have new left pariatal infarct. Head ct with no cute changess. brain MRI confirmed new left parital stroke. stroke protocol initiated: on asa, lipitor, swallow eval and PT monitor on tele Code(s): I63.9 - CEREBRAL INFARCTION, UNSPECIFIED (5) CVA, old, hemiparesis Assessment/Plan: right sided deficits from old CVA Code(s): I69.359 - HEMIPLGA FOLLOWING CEREBRAL INFARCTION AFFECTING UNSP SIDE (6) DVT prophylaxis Assessment/Plan: on lovenox Code(s): Z29.9 - ENCOUNTER FOR PROPHYLACTIC MEASURES, UNSPECIFIED (7) Hyponatremia Assessment/Plan: improved with fluid restriction. daily cmp ordered to monitor closely. Code(s): E87.1 - HYPO-OSMOLALITY AND HYPONATREMIA (8) Pneumonia Assessment/Plan: on zosyn for psedomonas aeruginosa on sputum culture Code(s): J18.9 - PNEUMONIA, UNSPECIFIED ORGANISM (9) Hypothyroidism Assessment/Plan: continue synthroid Code(s): E03.9 - HYPOTHYROIDISM, UNSPECIFIED (10) Prophylactic measure Assessment/Plan: lovenox physical therapy full code Code(s): Z29.9 - ENCOUNTER FOR PROPHYLACTIC MEASURES, UNSPECIFIED Visit type - Emergency Visit Emergency Visit: Yes ED Registration Date: 07/27/20 Care time: The patient presented to the Emergency Department on the above date and was hospitalized for further evaluation of their emergent condition. - New Patient This patient is new to me today: No - Critical Care Critical Care patient: No - Discharge Referral Referred to [facility] No - Medication Review Med list reviewed for High Risk Meds patients 65 and older: Yes
[2020-08-02] MEDS: ATORVASTATIN CA 80 MG TABLET (FP) GT SCH (21:05)
[2020-08-03] MEDS ORDERED: PIPERACILLIN/TAZOBACTAM 4.5 GM VIAL IVPB ONE ×4 (01:36→20:37)
[2020-08-03] MEDS ORDERED: DEXTROSE 5%-WATER 100 ML IVPB ONE ×4 (01:36→20:37)
[2020-08-03] MEDS: MOMETASONE FUROATE 110 MCG/IH INHALER IH SCH (02:11)
[2020-08-03] MEDS: FLUTICASONE PROP 0.05% 16 GM NASAL SPRAY NS SCH ×2 (02:11→09:14)
[2020-08-03] MEDS: PIPERACILLIN/TAZOB 4.5 GM 4.5 GM in DEXTROSE 5%-WATER 100 ML IVPB SCH ×4 (02:13→21:34)
[2020-08-03] MEDS: GABAPENTIN 250 MG/5 ML ORAL SOLUTION, 470 ML BOTTLE GT SCH ×3 (06:16→21:35)
[2020-08-03] MEDS: LEVOTHYROXINE NA 100 MCG TABLET (FP) NR SCH (06:16)
[2020-08-03] MEDS: ALBUTEROL SO4 2.5/IPRATROPIUM 0.5 INH SOL 3 ML VIAL.NEB. NEB SCH ×4 (07:40→20:30)
[2020-08-03] MEDS: ASPIRIN 81 MG CHEWABLE TABLETS GT SCH (09:13)
[2020-08-03] MEDS: PANTOPRAZOLE SODIUM 40 MG VIAL IVPUSH SCH (09:13)
[2020-08-03] MEDS: ESCITALOPRAM OXALATE 5 MG/5 ML GT SCH (09:14)
[2020-08-03] MEDS: ENOXAPARIN NA (PORCINE) 40 MG/0.4 ML DISP.SYRIN SQ SCH (09:14)
[2020-08-03 10:26] LABS: BASO % 0.9 % (0-2.0); EOS % 9.4 % (0-4.5); HEMATOCRIT 25.1 % (35.4-49); HEMOGLOBIN 8.3 GM/dL (11.7-16.9); LYMPH % 6.3 % (8-40); MCH 27.2 pg (25.7-33.7); MCHC 32.9 g/dl (32.0-35.9); MEAN CELL VOLUME 82.6 fl (80-96); MEAN PLT VOLUME 7.2 fl (7.5-11.1); MONO % 12.4 % (3.8-10.2); PLATELET COUNT 364 K/MM3 (134-434); RBC 3.04 M/mm3 (4.00-5.60); WHITE BLOOD COUNT 7.4 K/mm3 (4.0-10.0)
--- NOTE | 2020-08-03 10:32 | PN ---
Progress Note (short form) - Note Progress Note: PULMONARY Denies shortness of breath. No fevers. Vital Signs Period Temp Pulse Resp BP Sys/Calhoun Pulse Ox Last 24 Hr 98.0 F-98.7 F 70-90 20-20 116-144/63-78 96-97 Gen: NAD at rest Heart: RRR Lung: decreased breath sounds at the bases Abd: soft, nontender Ext: no edema Active Medications Albuterol Sulfate (Ventolin Hfa Inhaler -) 2 puff IH Q6H PRN PRN Reason: SHORT OF BREATH/WHEEZING Albuterol/Ipratropium (Duoneb -) 1 amp NEB RQID [facility] Last Admin: 08/03/20 07:40 Dose: 1 amp Documented by: Aspirin (Asa -) 81 mg GT DAILY [facility] Last Admin: 08/03/20 09:13 Dose: 81 mg Documented by: Atorvastatin Calcium (Lipitor -) 80 mg GT HS [facility] Last Admin: 08/02/20 21:05 Dose: 80 mg Documented by: Enoxaparin Sodium (Lovenox -) 40 mg SQ DAILY [facility] Last Admin: 08/03/20 09:14 Dose: 40 mg Documented by: Escitalopram Oxalate (Lexapro Oral Solution -) 10 mg GT DAILY [facility] Last Admin: 08/03/20 09:14 Dose: 5 ml Documented by: Fluticasone Propionate (Flonase -) 1 spray NS BID [facility] Last Admin: 08/03/20 09:14 Dose: 1 spray Documented by: Gabapentin (Neurontin Oral Liquid -) 200 mg GT TID [facility] Last Admin: 08/03/20 06:16 Dose: 200 ml Documented by: Piperacillin Sod/Tazobactam (Sod 4.5 gm/ Dextrose) 100 mls @ 200 mls/hr IVPB Q6H-IV [facility]; Protocol Last Admin: 08/03/20 09:13 Dose: 200 mls/hr Documented by: Levothyroxine Sodium (Synthroid -) 200 mcg NR DAILY@0700 [facility] Last Admin: 08/03/20 06:16 Dose: 200 mcg Documented by: Mometasone Furoate (Asmanex 110mcg -) 1 puff IH HS [facility] Last Admin: 08/03/20 02:11 Dose: Not Given Documented by: Pantoprazole Sodium (Protonix Iv) 40 mg IVPUSH DAILY [facility] Last Admin: 08/03/20 09:13 Dose: 40 mg Documented by: ASSESSMENT AND PLAN: Altered Mental Status improved Acute CVA Pneumonia Hyponatremia Head/Neck Cancer s/p Tracheostomy HTN Hyperlipidemia Hypothyroidism h/o CVA - continue antibiotics - inhaled bronchodilators - O2 to keep SpO2 >90% - DVT prophylaxis
--- NOTE | 2020-08-03 10:45 | CON.CARD ---
Consult Consult Specialty:: Cardiology Referred by:: Hospitalist Service Reason for Consultation:: Cardiac evaluation - History of Present Illness Chief Complaint: Post CVA with right hemiparesis History of Present Illness: Patient is a 75 year old male with underlying history of head/neck cancer s/p tracheostomy, in addition HTN, hypercholesterolemia and recent CVA with residual right sided weakness who was admitted this time with lethargy and hypoxia. During hospitalization, patient's mental status became obtunded and was moved to ICU. He was found to have acute left parietal infarct with right hemiparesis. Currently, he is on telemetry unit. He denies chest pain, shortness of breath or palpitations. He denies orthopnea. He denies fever or chills. He denies nausea, vomiting, diarrhea or abdominal pain. He denies headache or dizziness. 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 Cardio/Vascular: Yes: HTN, Hyperlipdemia Pulmonary: Yes: Other (tracheostomy) - Past Surgical History Additional Surgical History: Tracheostomy - Alcohol/Substance Use Hx Alcohol Use: No - Smoking History Smoking history: Never smoked Have you smoked in the past 12 months: No Home Medications - Allergies Allergies/Adverse Reactions: Allergies Allergy/AdvReac Type Severity Reaction Status Date / Time No Known Allergies Allergy Verified 07/29/20 15:25 - Home Medications Home Medications: Ambulatory Orders Albuterol Sulfate Inhaler - [Ventolin HFA Inhaler -] 2 puff IH Q6H 07/28/20 Amlodipine Besylate 5 mg GT DAILY 07/28/20 Atorvastatin Ca [Lipitor] 40 mg GT HS 07/28/20 Escitalopram Oxalate [Lexapro -] 10 mg GT DAILY 07/28/20 Fluticasone Furoate [Arnuity Ellipta] 1 spray IH BID 07/28/20 Gabapentin [Neurontin -] 200 mg GT TID 07/28/20 Levothyroxine Sodium [Synthroid] 200 mcg GT DAILY 07/28/20 Losartan Potassium 100 mg GT DAILY 07/28/20 Omeprazole 20 mg GT DAILY 07/28/20 Silodosin [Rapaflo] 8 mg GT DAILY 07/28/20 Review of Systems - Review of Systems Constitutional: denies: Chills, Fever Cardiovascular: denies: Chest Pain, Palpitations, Shortness of Breath Respiratory: denies: Cough, Orthopnea, PND, SOB, SOB on Exertion, Wheezing Gastrointestinal: denies: Abdominal Pain, Constipation, Diarrhea, Melena, Nausea, Rectal Bleeding, Vomiting Musculoskeletal: denies: Back Pain, Joint Pain Neurological: reports: Confusion. denies: Dizziness, Headache, Seizure, Syncope Vital Signs: Vital Signs Temperature 98.3 F 08/03/20 08:54 Pulse Rate 90 08/03/20 08:54 Respiratory Rate 20 08/03/20 08:54 Blood Pressure 137/68 08/03/20 08:54 O2 Sat by Pulse Oximetry (%) 97 08/03/20 08:54 Neck: Yes: Supple Respiratory: Yes: Diminished Gastrointestinal: Yes: Normal Bowel Sounds, Soft. No: Tenderness Cardiovascular: Yes: Regular Rate and Rhythm JVD: No PMI: Non-Displaced Heart Sounds: Yes: S1, S2 Edema: No - Other Data Labs, Other Data: CBC, BMP 08/03/20 10:02 Laboratory Results - last 24 hr 08/03/20 08/03/20 10:02 10:02 WBC 7.4 RBC 3.04 L Hgb 8.3 L Hct 25.1 L MCV 82.6 MCH 27.2 MCHC 32.9 RDW 16.0 H Plt Count 364 MPV 7.2 L Absolute Neuts (auto) 5.3 Neutrophils % 71.0 Lymphocytes % 6.3 L D Monocytes % 12.4 H Eosinophils % 9.4 H D Basophils % 0.9 Nucleated RBC % 0 Sodium 136 Potassium 4.2 Chloride 99 Carbon Dioxide 30 Anion Gap 6 L BUN 18.6 H Creatinine 0.7 Est GFR (CKD-EPI)AfAm 105.50 Est GFR (CKD-EPI)NonAf 91.03 Random Glucose 95 Calcium 8.2 L Magnesium 2.1 Total Bilirubin 0.3 AST 22 ALT 9 L Alkaline Phosphatase 55 Total Protein 6.8 Albumin 2.1 L Sinus bradycardia Echo: Report Reviewed (Normal LVEF, impaired relaxation, mild MR, mild AR, trace TR) Imaging - Results Chest X-ray: Report Reviewed (Some atelectasis, elevated right hemidiaphragm) Cat Scan: Report Reviewed (Head CT noted) Ultrasound: Report Reviewed (Carotid Doppler: Moderate bilateral plaque 50-69%) MRI: Report Reviewed (Brain MRI left parietal infarct) EKG: Report Reviewed Problem List - Problems (1) Acute metabolic encephalopathy Code(s): G93.41 - METABOLIC ENCEPHALOPATHY (2) CVA (cerebral vascular accident) Code(s): I63.9 - CEREBRAL INFARCTION, UNSPECIFIED (3) Head and neck cancer Code(s): C76.0 - MALIGNANT NEOPLASM OF HEAD, FACE AND NECK (4) Hypertension Code(s): I10 - ESSENTIAL (PRIMARY) HYPERTENSION (5) Hyponatremia Code(s): E87.1 - HYPO-OSMOLALITY AND HYPONATREMIA (6) Hypothyroidism Code(s): E03.9 - HYPOTHYROIDISM, UNSPECIFIED Assessment/Plan 1. 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 HTN 3. Hypercholesterolemia 4. Head/neck cancer post tracheostomy 5. Hyponatremia 6. Anemia 7. Hypothyroidism PLAN: 1. Continue Atorvastatin 80 mg QD 2. ASA 81 mg QD 3. Empiric antibiotics. Continue respiratory care 4. Monitor NA and correct 5. Thyoid replacement therapy 6. PT Further plans are to follow Coleman Peñaloza MD
[2020-08-03 10:49] LABS: ALBUMIN 2.1 g/dl (3.4-5.0); BILIRUBIN,TOTAL 0.3 mg/dL (0.2-1); BLOOD UREA NITROGEN 18.6 mg/dL (7-18); CALCIUM 8.2 mg/dL (8.5-10.1); CREATININE 0.7 mg/dL (0.55-1.3); MAGNESIUM 2.1 mg/dL (1.8-2.4); POTASSIUM 4.2 mmol/L (3.5-5.1); TOT PROT 6.8 g/dl (6.4-8.2)
--- NOTE | 2020-08-03 12:16 | PN ---
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 He came to hospital or episodes of unreponsiveness and hypoxic, he wa son regular floor and he was brought to icu for furhter observation . Patient has residual right sided hemiparesis . He has mri of brain done and also have hyponatremia during hospitalization. There is no fever , nad he was also started on abx empirically for penumonia. -- no new symptoms, no new complain. NEUROLOGICAL EXAMINATION Alert and oriented x 3, feeling good, afebrile vss neck is supple afebrile vss eomi, pupils reactive no face asymmetry right arm weaknes supto grade 2 and moving left uper extremity and both lower extremity mri ofbrain showed left parietal acute stroke eeg is normal Assessment/Plan 75 year old male with past medical history of head/neck cancer s/p tracheostomy, HTN, 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 left pareital acute ischemic lesion, eeg is normal. - recurrent episode of unresponsiveness and becoming obtunded , unlikley to seizure Plan-- continue aspirin and statin - continue abx as per ID - eeg is noraml - continue supportive care Thanking you so much Christy Prince MD
--- NOTE | 2020-08-03 14:04 | PN ---
Progress Note, Physician History of Present Illness: Pt seen and examined at bedside. He is awake and alert. - Current Medication List Current Medications: Active Medications Albuterol Sulfate (Ventolin Hfa Inhaler -) 2 puff IH Q6H PRN PRN Reason: SHORT OF BREATH/WHEEZING Albuterol/Ipratropium (Duoneb -) 1 amp NEB RQID [facility] Last Admin: 08/03/20 11:25 Dose: 1 amp Documented by: Aspirin (Asa -) 81 mg GT DAILY [facility] Last Admin: 08/03/20 09:13 Dose: 81 mg Documented by: Atorvastatin Calcium (Lipitor -) 80 mg GT HS [facility] Last Admin: 08/02/20 21:05 Dose: 80 mg Documented by: Enoxaparin Sodium (Lovenox -) 40 mg SQ DAILY [facility] Last Admin: 08/03/20 09:14 Dose: 40 mg Documented by: Escitalopram Oxalate (Lexapro Oral Solution -) 10 mg GT DAILY [facility] Last Admin: 08/03/20 09:14 Dose: 5 ml Documented by: Fluticasone Propionate (Flonase -) 1 spray NS BID [facility] Last Admin: 08/03/20 09:14 Dose: 1 spray Documented by: Gabapentin (Neurontin Oral Liquid -) 200 mg GT TID [facility] Last Admin: 08/03/20 06:16 Dose: 200 ml Documented by: Piperacillin Sod/Tazobactam (Sod 4.5 gm/ Dextrose) 100 mls @ 200 mls/hr IVPB Q6H-IV [facility]; Protocol Last Admin: 08/03/20 09:13 Dose: 200 mls/hr Documented by: Levothyroxine Sodium (Synthroid -) 200 mcg NR DAILY@0700 [facility] Last Admin: 08/03/20 06:16 Dose: 200 mcg Documented by: Mometasone Furoate (Asmanex 110mcg -) 1 puff IH HS [facility] Last Admin: 08/03/20 02:11 Dose: Not Given Documented by: Pantoprazole Sodium (Protonix Iv) 40 mg IVPUSH DAILY [facility] Last Admin: 08/03/20 09:13 Dose: 40 mg Documented by: - Objective Vital Signs: Vital Signs Temperature 98.3 F 08/03/20 08:54 Pulse Rate 90 08/03/20 08:54 Respiratory Rate 20 08/03/20 08:54 Blood Pressure 137/68 08/03/20 08:54 O2 Sat by Pulse Oximetry (%) 97 08/03/20 08:54 Constitutional: Yes: Calm Eyes: Yes: Conjunctiva Clear Cardiovascular: Yes: S1, S2 Respiratory: Yes: Other (trache) Gastrointestinal: Yes: Soft, Other (peg) Genitourinary: Yes: WNL Edema: No Neurological: Yes: Oriented, Pre-Existing Deficit Labs: CBC, BMP 08/03/20 10:02 08/03/20 10:02 Assessment/Plan Current Medications Generic Name Dose Route Start Last Admin Trade Name Freq PRN Reason Stop Dose Admin Albuterol Sulfate 2 puff 08/01/20 08:39 Ventolin Hfa Inhaler - IH Q6H PRN SHORT OF BREATH/WHEEZING Albuterol/Ipratropium 1 amp 08/01/20 12:00 08/03/20 11:25 Duoneb - NEB 1 amp RQID [facility] Administration Aspirin 81 mg 08/02/20 17:51 08/03/20 09:13 Asa - GT 81 mg DAILY [facility] Administration Atorvastatin Calcium 80 mg 08/01/20 22:00 08/02/20 21:05 Lipitor - GT 80 mg HS [facility] Administration Enoxaparin Sodium 40 mg 08/01/20 10:00 08/03/20 09:14 Lovenox - SQ 40 mg DAILY [facility] Administration Escitalopram Oxalate 10 mg 08/01/20 10:00 08/03/20 09:14 Lexapro Oral Solution - GT 5 ml DAILY [facility] Administration Fluticasone Propionate 1 spray 08/01/20 10:00 08/03/20 09:14 Flonase - NS 1 spray BID [facility] Administration Gabapentin 200 mg 08/01/20 14:00 08/03/20 06:16 Neurontin Oral Liquid - GT 200 ml TID [facility] Administration Piperacillin Sod/Tazobactam 100 mls @ 200 mls/hr 08/01/20 12:45 08/03/20 09:13 Sod 4.5 gm/ Dextrose IVPB 200 mls/hr Q6H-IV [facility] Administration Protocol Levothyroxine Sodium 200 mcg 08/02/20 07:00 08/03/20 06:16 Synthroid - NR 200 mcg DAILY@0700 [facility] Administration Mometasone Furoate 1 puff 08/01/20 22:00 08/03/20 02:11 Asmanex 110mcg - IH Not Given HS [facility] Pantoprazole Sodium 40 mg 08/01/20 10:00 08/03/20 09:13 Protonix Iv IVPUSH 40 mg DAILY [facility] Administration Impression 1. hyponatremia 2. hx cva 3. trache collar 4. peg tube 5. htn 6. hypothyroidism 7. episodes of altered mental status 8. chronic resp failure Plan - sodium has normalized - cont to monitor lytes - pt tolerating tube feeds - neuro input appreciated - cont free water restriction - monitor sodium levels - repeat labs in am
--- NOTE | 2020-08-03 16:08 | PN ---
Physical Exam: SUBJECTIVE: Patient seen and examined at the bedside. in no acute distress feels well. at bedside. OBJECTIVE: Patient is a 75 year old male with past medical history of head/neck cancer s/p tracheostomy, HTN, recent CVA with residual right sided weakness 6 months ago. Patient was on the floor when he had change in mental status. A head CT and MRI was preformed which showed a new acute left parietal lobe infarct. patient was sent to the icu for closer monitoring and now being monitored on tele. Vital Signs Period Temp Pulse Resp BP Sys/[place] Pulse Ox Last 24 Hr 98.0 F-98.7 F 56-90 20-20 108-144/62-78 96-97 HENT: Yes: WNL Neck: Yes: Other (trach) Cardiovascular: Yes: Regular Rate and Rhythm Respiratory: Yes: CTA Bilaterally Gastrointestinal: Yes: Other (peg tube) Musculoskeletal: Yes: Other (right sided weakness) Edema: No Peripheral Pulses WNL: Yes Integumentary: Yes: WNL Laboratory Results - last 24 hr 08/03/20 08/03/20 10:02 10:02 WBC 7.4 RBC 3.04 L Hgb 8.3 L Hct 25.1 L MCV 82.6 MCH 27.2 MCHC 32.9 RDW 16.0 H Plt Count 364 MPV 7.2 L Absolute Neuts (auto) 5.3 Neutrophils % 71.0 Lymphocytes % 6.3 L D Monocytes % 12.4 H Eosinophils % 9.4 H D Basophils % 0.9 Nucleated RBC % 0 Sodium 136 Potassium 4.2 Chloride 99 Carbon Dioxide 30 Anion Gap 6 L BUN 18.6 H Creatinine 0.7 Est GFR (CKD-EPI)AfAm 105.50 Est GFR (CKD-EPI)NonAf 91.03 Random Glucose 95 Calcium 8.2 L Magnesium 2.1 Total Bilirubin 0.3 AST 22 ALT 9 L Alkaline Phosphatase 55 Total Protein 6.8 Albumin 2.1 L Active Medications Generic Name Dose Route Start Last Admin Trade Name Freq PRN Reason Stop Dose Admin Albuterol Sulfate 2 puff 08/01/20 08:39 Ventolin Hfa Inhaler - IH Q6H PRN SHORT OF BREATH/WHEEZING Albuterol/Ipratropium 1 amp 08/01/20 12:00 08/03/20 15:44 Duoneb - NEB 1 amp RQID [facility] Administration Aspirin 81 mg 08/02/20 17:51 08/03/20 09:13 Asa - GT 81 mg DAILY [facility] Administration Atorvastatin Calcium 80 mg 08/01/20 22:00 08/02/20 21:05 Lipitor - GT 80 mg HS [facility] Administration Enoxaparin Sodium 40 mg 08/01/20 10:00 08/03/20 09:14 Lovenox - SQ 40 mg DAILY [facility] Administration Escitalopram Oxalate 10 mg 08/01/20 10:00 08/03/20 09:14 Lexapro Oral Solution - GT 5 ml DAILY [facility] Administration Fluticasone Propionate 1 spray 08/01/20 10:00 08/03/20 09:14 Flonase - NS 1 spray BID [facility] Administration Gabapentin 200 mg 08/01/20 14:00 08/03/20 14:10 Neurontin Oral Liquid - GT 5 ml TID [facility] Administration Piperacillin Sod/Tazobactam 100 mls @ 200 mls/hr 08/01/20 12:45 08/03/20 14:10 Sod 4.5 gm/ Dextrose IVPB 200 mls/hr Q6H-IV [facility] Administration Protocol Levothyroxine Sodium 200 mcg 08/02/20 07:00 08/03/20 06:16 Synthroid - NR 200 mcg DAILY@0700 [facility] Administration Mometasone Furoate 1 puff 08/01/20 22:00 08/03/20 02:11 Asmanex 110mcg - IH Not Given HS [facility] Pantoprazole Sodium 40 mg 08/01/20 10:00 08/03/20 09:13 Protonix Iv IVPUSH 40 mg DAILY [facility] Administration ASSESSMENT/PLAN: Problem List - Problems (1) Acute metabolic encephalopathy Assessment/Plan: resolved. acute metabolic encephalopathy on 07/30 and found to have an acute left pareital acute ischemic lesion. patient was sent to icu for closer monitoring. eeg was normal followed by neurologist on ASA, statin therapy speech and swallow following PT following Code(s): G93.41 - METABOLIC ENCEPHALOPATHY (2) Head and neck cancer Assessment/Plan: head and nect cancer s/p trach Code(s): C76.0 - MALIGNANT NEOPLASM OF HEAD, FACE AND NECK (3) Hypertension Assessment/Plan: bp stable. on amlodopine Code(s): I10 - ESSENTIAL (PRIMARY) HYPERTENSION (4) CVA (cerebral vascular accident) Assessment/Plan: patient with a history of CVA with right sided weakness. had episode of AMS and found to have new left pariatal infarct. Head ct with no cute changess. brain MRI confirmed new left parital stroke. stroke protocol initiated: on asa, lipitor, swallow eval and PT monitor on tele Code(s): I63.9 - CEREBRAL INFARCTION, UNSPECIFIED (5) CVA, old, hemiparesis Assessment/Plan: right sided deficits from old CVA Code(s): I69.359 - HEMIPLGA FOLLOWING CEREBRAL INFARCTION AFFECTING UNSP SIDE (6) DVT prophylaxis Assessment/Plan: on lovenox Code(s): Z29.9 - ENCOUNTER FOR PROPHYLACTIC MEASURES, UNSPECIFIED (7) Hyponatremia Assessment/Plan: improved with fluid restriction. daily cmp ordered to monitor closely. Code(s): E87.1 - HYPO-OSMOLALITY AND HYPONATREMIA (8) Pneumonia Assessment/Plan: on zosyn for psedomonas aeruginosa on sputum culture Code(s): J18.9 - PNEUMONIA, UNSPECIFIED ORGANISM (9) Hypothyroidism Assessment/Plan: continue synthroid Code(s): E03.9 - HYPOTHYROIDISM, UNSPECIFIED (10) Prophylactic measure Assessment/Plan: lovenox physical therapy full code Code(s): Z29.9 - ENCOUNTER FOR PROPHYLACTIC MEASURES, UNSPECIFIED Visit type - Emergency Visit Emergency Visit: Yes ED Registration Date: 07/27/20 Care time: The patient presented to the Emergency Department on the above date and was hospitalized for further evaluation of their emergent condition. - New Patient This patient is new to me today: No - Critical Care Critical Care patient: No - Discharge Referral Referred to [facility] Med P.C[facility] No - Medication Review Med list reviewed for High Risk Meds patients 65 and older: Yes
[2020-08-03] MEDS: ATORVASTATIN CA 80 MG TABLET (FP) GT SCH (21:35)
[2020-08-04] MEDS: PIPERACILLIN/TAZOB 4.5 GM 4.5 GM in DEXTROSE 5%-WATER 100 ML IVPB SCH ×4 (03:00→21:30)
[2020-08-04] MEDS ORDERED: DEXTROSE 5%-WATER 100 ML IVPB ONE ×4 (03:39→21:27)
[2020-08-04] MEDS ORDERED: PIPERACILLIN/TAZOBACTAM 4.5 GM VIAL IVPB ONE ×4 (03:39→21:27)
[2020-08-04] MEDS: GABAPENTIN 250 MG/5 ML ORAL SOLUTION, 470 ML BOTTLE GT SCH ×3 (05:52→22:34)
[2020-08-04] MEDS: LEVOTHYROXINE NA 100 MCG TABLET (FP) NR SCH (06:10)
[2020-08-04 07:22] LABS: BASO % 1.2 % (0-2.0); EOS % 11.3 % (0-4.5); HEMATOCRIT 27.2 % (35.4-49); HEMOGLOBIN 9.1 GM/dL (11.7-16.9); LYMPH % 7.7 % (8-40); MCH 27.3 pg (25.7-33.7); MCHC 33.3 g/dl (32.0-35.9); MEAN CELL VOLUME 81.9 fl (80-96); MEAN PLT VOLUME 7.3 fl (7.5-11.1); MONO % 12.2 % (3.8-10.2); NEUT % 67.6 % (42.8-82.8); PLATELET COUNT 353 K/MM3 (134-434); RBC 3.32 M/mm3 (4.00-5.60); RDW 16.3 % (11.9-15.9); WHITE BLOOD COUNT 6.7 K/mm3 (4.0-10.0)
[2020-08-04] MEDS: ALBUTEROL SO4 2.5/IPRATROPIUM 0.5 INH SOL 3 ML VIAL.NEB. NEB SCH ×4 (07:45→20:35)
[2020-08-04 07:46] LABS: ALBUMIN 2.1 g/dl (3.4-5.0); BILIRUBIN,TOTAL 0.5 mg/dL (0.2-1); BLOOD UREA NITROGEN 16.5 mg/dL (7-18); CALCIUM 8.3 mg/dL (8.5-10.1); CREATININE 0.7 mg/dL (0.55-1.3); POTASSIUM 4.8 mmol/L (3.5-5.1); TOT PROT 6.9 g/dl (6.4-8.2)
--- NOTE | 2020-08-04 08:06 | PN ---
Progress Note, Physician History of Present Illness: PULMONARY ALERT,FEELING BETTER,SOB IMPROVING,-CONGESTION - Current Medication List Current Medications: Active Medications Albuterol Sulfate (Ventolin Hfa Inhaler -) 2 puff IH Q6H PRN PRN Reason: SHORT OF BREATH/WHEEZING Albuterol/Ipratropium (Duoneb -) 1 amp NEB RQID [facility] Last Admin: 08/03/20 20:30 Dose: 1 amp Documented by: Aspirin (Asa -) 81 mg GT DAILY [facility] Last Admin: 08/03/20 09:13 Dose: 81 mg Documented by: Atorvastatin Calcium (Lipitor -) 80 mg GT HS [facility] Last Admin: 08/03/20 21:35 Dose: 80 mg Documented by: Enoxaparin Sodium (Lovenox -) 40 mg SQ DAILY [facility] Last Admin: 08/03/20 09:14 Dose: 40 mg Documented by: Escitalopram Oxalate (Lexapro Oral Solution -) 10 mg GT DAILY [facility] Last Admin: 08/03/20 09:14 Dose: 5 ml Documented by: Fluticasone Propionate (Flonase -) 1 spray NS BID [facility] Last Admin: 08/03/20 09:14 Dose: 1 spray Documented by: Gabapentin (Neurontin Oral Liquid -) 200 mg GT TID [facility] Last Admin: 08/04/20 05:52 Dose: 200 ml Documented by: Piperacillin Sod/Tazobactam (Sod 4.5 gm/ Dextrose) 100 mls @ 200 mls/hr IVPB Q6H-IV [facility]; Protocol Last Admin: 08/04/20 03:00 Dose: 200 mls/hr Documented by: Levothyroxine Sodium (Synthroid -) 200 mcg NR DAILY@0700 [facility] Last Admin: 08/04/20 06:10 Dose: 200 mcg Documented by: Mometasone Furoate (Asmanex 110mcg -) 1 puff IH HS [facility] Last Admin: 08/03/20 02:11 Dose: Not Given Documented by: Pantoprazole Sodium (Protonix Iv) 40 mg IVPUSH DAILY [facility] Last Admin: 08/03/20 09:13 Dose: 40 mg Documented by: - Objective Vital Signs: Vital Signs Temperature 97.5 F L 08/04/20 02:00 Pulse Rate 60 08/04/20 06:11 Respiratory Rate 20 08/04/20 06:11 Blood Pressure 177/85 H 08/04/20 06:11 O2 Sat by Pulse Oximetry (%) 97 08/03/20 22:00 Constitutional: Yes: Calm, Thin Eyes: Yes: WNL HENT: Yes: WNL Neck: Yes: Supple (TRACH) Cardiovascular: Yes: Regular Rate and Rhythm, S1, S2 Respiratory: Yes: Diminished Gastrointestinal: Yes: Normal Bowel Sounds, Soft Extremities: Yes: WNL Edema: No Labs: CBC, BMP 08/04/20 05:40 08/04/20 05:40 Assessment/Plan ASSESSMENT AND PLAN: Altered Mental Status improved S/P Acute CVA Pneumonia clinically improving Likely Mucous Plug Hyponatremia Head/Neck Cancer s/p Tracheostomy HTN Hyperlipidemia Hypothyroidism h/o CVA - antibiotics - inhaled bronchodilators - O2 to keep SpO2 >90% - DVT prophylaxis DR ORTIZ
[2020-08-04] MEDS ORDERED: PT OWN MED DRAWER 7, Y5N ONE ×2 (09:00→21:28)
[2020-08-04] MEDS: FLUTICASONE PROP 0.05% 16 GM NASAL SPRAY NS SCH ×3 (09:02→22:18)
[2020-08-04] MEDS: ENOXAPARIN NA (PORCINE) 40 MG/0.4 ML DISP.SYRIN SQ SCH (09:02)
[2020-08-04] MEDS: ESCITALOPRAM OXALATE 5 MG/5 ML GT SCH (09:03)
[2020-08-04] MEDS: PANTOPRAZOLE SODIUM 40 MG VIAL IVPUSH SCH (09:03)
[2020-08-04] MEDS: ASPIRIN 81 MG CHEWABLE TABLETS GT SCH (09:03)
--- NOTE | 2020-08-04 09:09 | PN ---
Progress Note, Physician Chief Complaint: Remains with right hemiparesis Awake and alert History of Present Illness: Patient was seen and examined. Chart was reviewed Denies chest pain or SOB - Current Medication List Current Medications: Active Medications Albuterol Sulfate (Ventolin Hfa Inhaler -) 2 puff IH Q6H PRN PRN Reason: SHORT OF BREATH/WHEEZING Albuterol/Ipratropium (Duoneb -) 1 amp NEB RQID [facility] Last Admin: 08/03/20 20:30 Dose: 1 amp Documented by: Aspirin (Asa -) 81 mg GT DAILY [facility] Last Admin: 08/04/20 09:03 Dose: 81 mg Documented by: Atorvastatin Calcium (Lipitor -) 80 mg GT HS [facility] Last Admin: 08/03/20 21:35 Dose: 80 mg Documented by: Enoxaparin Sodium (Lovenox -) 40 mg SQ DAILY [facility] Last Admin: 08/04/20 09:02 Dose: 40 mg Documented by: Escitalopram Oxalate (Lexapro Oral Solution -) 10 mg GT DAILY [facility] Last Admin: 08/04/20 09:03 Dose: 5 ml Documented by: Fluticasone Propionate (Flonase -) 1 spray NS BID [facility] Last Admin: 08/04/20 09:02 Dose: 1 spray Documented by: Gabapentin (Neurontin Oral Liquid -) 200 mg GT TID [facility] Last Admin: 08/04/20 05:52 Dose: 200 ml Documented by: Piperacillin Sod/Tazobactam (Sod 4.5 gm/ Dextrose) 100 mls @ 200 mls/hr IVPB Q6H-IV [facility]; Protocol Last Admin: 08/04/20 09:02 Dose: 200 mls/hr Documented by: Levothyroxine Sodium (Synthroid -) 200 mcg NR DAILY@0700 [facility] Last Admin: 08/04/20 06:10 Dose: 200 mcg Documented by: Mometasone Furoate (Asmanex 110mcg -) 1 puff IH HS [facility] Last Admin: 08/03/20 02:11 Dose: Not Given Documented by: Pantoprazole Sodium (Protonix Iv) 40 mg IVPUSH DAILY [facility] Last Admin: 08/04/20 09:03 Dose: 40 mg Documented by: - Objective Vital Signs: Vital Signs Temperature 97.9 F 08/04/20 08:17 Pulse Rate 59 L 10/04/20 08:17 Respiratory Rate 20 08/04/20 08:17 Blood Pressure 174/89 H 08/04/20 08:17 O2 Sat by Pulse Oximetry (%) 97 08/04/20 08:17 Neck: Yes: Supple Cardiovascular: Yes: Regular Rate and Rhythm, S1, S2 Respiratory: Yes: Diminished Gastrointestinal: Yes: Normal Bowel Sounds, Soft. No: Tenderness Edema: No Additional Findings/Remarks: - Review of Systems Constitutional: denies: Chills, Fever Cardiovascular: denies: Chest Pain, Palpitations, Shortness of Breath Respiratory: denies: Cough, Orthopnea, PND, SOB, SOB on Exertion, Wheezing Gastrointestinal: denies: Abdominal Pain, Constipation, Diarrhea, Melena, Nausea, Rectal Bleeding, Vomiting Musculoskeletal: denies: Back Pain, Joint Pain Neurological: reports: Confusion. denies: Dizziness, Headache, Seizure, Syncope Labs: CBC, BMP 08/04/20 05:40 08/04/20 05:40 Problem List - Problems (1) Acute metabolic encephalopathy Code(s): G93.41 - METABOLIC ENCEPHALOPATHY (2) CVA (cerebral vascular accident) Code(s): I63.9 - CEREBRAL INFARCTION, UNSPECIFIED (3) Head and neck cancer Code(s): C76.0 - MALIGNANT NEOPLASM OF HEAD, FACE AND NECK (4) Hypertension Code(s): I10 - ESSENTIAL (PRIMARY) HYPERTENSION (5) Hyponatremia Code(s): E87.1 - HYPO-OSMOLALITY AND HYPONATREMIA (6) Hypothyroidism Code(s): E03.9 - HYPOTHYROIDISM, UNSPECIFIED Assessment/Plan 1. 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 HTN 3. Hypercholesterolemia 4. Head/neck cancer post tracheostomy 5. Hyponatremia 6. Anemia 7. Hypothyroidism PLAN: 1. Continue Atorvastatin 80 mg QD 2. ASA 81 mg QD 3. Restart Losartan 100 mg QD and Amlodipine 5 mg QD as tolerated 4. Empiric antibiotics. Continue respiratory care 5. Monitor NA and correct 6. Thyoid replacement therapy 7. PT Further plans are to follow Coleman Peñaloza MD
--- NOTE | 2020-08-04 09:36 | PN ---
Physical Exam: SUBJECTIVE: Patient seen and examined at the bedside. OBJECTIVE: Patient is a 75 year old male with past medical history of head/neck cancer s/p tracheostomy, HTN, recent CVA with residual right sided weakness 6 months ago. Patient was on the med surg floor when he had change in mental status with concern for a seizure. A head CT and MRI was preformed which showed a new acute left parietal lobe infarct. patient was sent to the icu for closer monitoring and now being monitored on tele. BP elevated, started on Losartan 50 mentation back to baseline hyponatremia improving Vital Signs Period Temp Pulse Resp BP Sys/[place] Pulse Ox Last 24 Hr 97.5 F-98.6 F 56-60 20-20 108-186/62-89 97-97 HENT: Yes: WNL Neck: Yes: Other (trach) Cardiovascular: Yes: Regular Rate and Rhythm Respiratory: Yes: mild rhonchi upper lobes after mouth care. will monitor. no airway compromise Gastrointestinal: Yes: Other (peg tube) Musculoskeletal: Yes: Other (right sided weakness) Edema: No Peripheral Pulses WNL: Yes Integumentary: Yes: WNL Laboratory Results - last 24 hr 08/03/20 08/03/20 08/04/20 10:02 10:02 05:40 WBC 7.4 6.7 RBC 3.04 L 3.32 L Hgb 8.3 L 9.1 L Hct 25.1 L 27.2 L MCV 82.6 81.9 MCH 27.2 27.3 MCHC 32.9 33.3 RDW 16.0 H 16.3 H Plt Count 364 353 MPV 7.2 L 7.3 L Absolute Neuts (auto) 5.3 4.5 Neutrophils % 71.0 67.6 Lymphocytes % 6.3 L D 7.7 L D Monocytes % 12.4 H 12.2 H Eosinophils % 9.4 H D 11.3 H Basophils % 0.9 1.2 Nucleated RBC % 0 0 Sodium 136 Potassium 4.2 Chloride 99 Carbon Dioxide 30 Anion Gap 6 L BUN 18.6 H Creatinine 0.7 Est GFR (CKD-EPI)AfAm 105.50 Est GFR (CKD-EPI)NonAf 91.03 Random Glucose 95 Calcium 8.2 L Magnesium 2.1 Total Bilirubin 0.3 AST 22 ALT 9 L Alkaline Phosphatase 55 Total Protein 6.8 Albumin 2.1 L 08/04/20 05:40 WBC RBC Hgb Hct MCV MCH MCHC RDW Plt Count MPV Absolute Neuts (auto) Neutrophils % Lymphocytes % Monocytes % Eosinophils % Basophils % Nucleated RBC % Sodium 136 Potassium 4.8 Chloride 100 Carbon Dioxide 30 Anion Gap 6 L BUN 16.5 Creatinine 0.7 Est GFR (CKD-EPI)AfAm 105.50 Est GFR (CKD-EPI)NonAf 91.03 Random Glucose 72 L Calcium 8.3 L Magnesium 2.0 Total Bilirubin 0.5 AST 18 ALT 9 L Alkaline Phosphatase 58 Total Protein 6.9 Albumin 2.1 L Active Medications Generic Name Dose Route Start Last Admin Trade Name Freq PRN Reason Stop Dose Admin Albuterol Sulfate 2 puff 08/01/20 08:39 Ventolin Hfa Inhaler - IH Q6H PRN SHORT OF BREATH/WHEEZING Albuterol/Ipratropium 1 amp 08/01/20 12:00 08/03/20 20:30 Duoneb - NEB 1 amp RQID MITZY Administration Amlodipine Besylate 5 mg 08/04/20 10:00 Norvasc - GT DAILY MITZY Aspirin 81 mg 08/02/20 17:51 08/04/20 09:03 Asa - GT 81 mg DAILY MITZY Administration Atorvastatin Calcium 80 mg 08/01/20 22:00 08/03/20 21:35 Lipitor - GT 80 mg HS MITZY Administration Enoxaparin Sodium 40 mg 08/01/20 10:00 08/04/20 09:02 Lovenox - SQ 40 mg DAILY MITZY Administration Escitalopram Oxalate 10 mg 08/01/20 10:00 08/04/20 09:03 Lexapro Oral Solution - GT 5 ml DAILY MITZY Administration Fluticasone Propionate 1 spray 08/01/20 10:00 08/04/20 09:02 Flonase - NS 1 spray BID MITZY Administration Gabapentin 200 mg 08/01/20 14:00 08/04/20 05:52 Neurontin Oral Liquid - GT 200 ml TID MITZY Administration Piperacillin Sod/Tazobactam 100 mls @ 200 mls/hr 08/01/20 12:45 08/04/20 09:02 Sod 4.5 gm/ Dextrose IVPB 200 mls/hr Q6H-IV MITZY Administration Protocol Levothyroxine Sodium 200 mcg 08/02/20 07:00 08/04/20 06:10 Synthroid - NR 200 mcg DAILY@0700 [facility]ZY Administration Losartan Potassium 50 mg 08/04/20 10:00 Cozaar - GT DAILY MITZY Mometasone Furoate 1 puff 08/01/20 22:00 08/03/20 02:11 Asmanex 110mcg - IH Not Given HS MITZY Pantoprazole Sodium 40 mg 08/01/20 10:00 08/04/20 09:03 Protonix Iv IVPUSH 40 mg DAILY MITZY Administration ASSESSMENT/PLAN: Problem List - Problems (1) Acute metabolic encephalopathy Assessment/Plan: resolved. acute metabolic encephalopathy on 07/30 and found to have an acute left pareital acute ischemic lesion. patient was sent to icu for closer monitoring. eeg was normal followed by neurologist on ASA, statin therapy speech and swallow following PT following Code(s): G93.41 - METABOLIC ENCEPHALOPATHY (2) Head and neck cancer Assessment/Plan: head and nect cancer s/p trach Code(s): C76.0 - MALIGNANT NEOPLASM OF HEAD, FACE AND NECK (3) Hypertension Assessment/Plan: bp elevated. started on losartan 50mg. continue norvasc 5mg and monitor bp with frequent vitals. monitor on tele Code(s): I10 - ESSENTIAL (PRIMARY) HYPERTENSION (4) CVA (cerebral vascular accident) Assessment/Plan: patient was found to have an acute left parietal lobe infarction on 07/30/2020 stroke protocol initiaed patient with a recent stroke 6 months prior with right sided weakness neuro following Code(s): I63.9 - CEREBRAL INFARCTION, UNSPECIFIED (5) CVA, old, hemiparesis Assessment/Plan: right sided deficits from old CVA Code(s): I69.359 - HEMIPLGA FOLLOWING CEREBRAL INFARCTION AFFECTING UNSP SIDE (6) Hyponatremia Assessment/Plan: improved with fluid restriction. daily cmp ordered to monitor closely. Code(s): E87.1 - HYPO-OSMOLALITY AND HYPONATREMIA (7) Pneumonia Assessment/Plan: on zosyn for psedomonas aeruginosa on sputum culture Code(s): J18.9 - PNEUMONIA, UNSPECIFIED ORGANISM (8) Hypothyroidism Assessment/Plan: continue synthroid Code(s): E03.9 - HYPOTHYROIDISM, UNSPECIFIED (9) Prophylactic measure Assessment/Plan: lovenox physical therapy full code Code(s): Z29.9 - ENCOUNTER FOR PROPHYLACTIC MEASURES, UNSPECIFIED (10) DVT prophylaxis Assessment/Plan: on Upowernox Code(s): Z29.9 - ENCOUNTER FOR PROPHYLACTIC MEASURES, UNSPECIFIED Visit type - Emergency Visit Emergency Visit: Yes ED Registration Date: 07/27/20 Care time: The patient presented to the Emergency Department on the above date and was hospitalized for further evaluation of their emergent condition. - New Patient This patient is new to me today: No - Critical Care Critical Care patient: No - Discharge Referral Referred to [facility] No - Medication Review Med list reviewed for High Risk Meds patients 65 and older: Yes
[2020-08-04] MEDS ORDERED: LOSARTAN POTASSIUM 50 MG TABLET PO SCH (10:00)
[2020-08-04] MEDS: LOSARTAN POTASSIUM 50 MG TABLET GT SCH (11:49)
[2020-08-04] MEDS: amLODIPine BESYLATE 5 MG TABLET (FP) GT SCH (11:51)
--- NOTE | 2020-08-04 13:57 | PN ---
Progress Note, Physician History of Present Illness: Pt seen and examined at bedside. He is awake and alert. - Current Medication List Current Medications: Active Medications Albuterol Sulfate (Ventolin Hfa Inhaler -) 2 puff IH Q6H PRN PRN Reason: SHORT OF BREATH/WHEEZING Albuterol/Ipratropium (Duoneb -) 1 amp NEB RQID [facility] Last Admin: 08/04/20 11:34 Dose: 1 amp Documented by: Amlodipine Besylate (Norvasc -) 5 mg GT DAILY [facility] Last Admin: 08/04/20 11:51 Dose: 5 mg Documented by: Aspirin (Asa -) 81 mg GT DAILY [facility] Last Admin: 08/04/20 09:03 Dose: 81 mg Documented by: Atorvastatin Calcium (Lipitor -) 80 mg GT HS [facility] Last Admin: 08/03/20 21:35 Dose: 80 mg Documented by: Enoxaparin Sodium (Lovenox -) 40 mg SQ DAILY [facility] Last Admin: 08/04/20 09:02 Dose: 40 mg Documented by: Escitalopram Oxalate (Lexapro Oral Solution -) 10 mg GT DAILY [facility] Last Admin: 08/04/20 09:03 Dose: 5 ml Documented by: Fluticasone Propionate (Flonase -) 1 spray NS BID [facility] Last Admin: 08/04/20 09:02 Dose: 1 spray Documented by: Gabapentin (Neurontin Oral Liquid -) 200 mg GT TID [facility] Last Admin: 08/04/20 05:52 Dose: 200 ml Documented by: Piperacillin Sod/Tazobactam (Sod 4.5 gm/ Dextrose) 100 mls @ 200 mls/hr IVPB Q6H-IV MITZY; Protocol Last Admin: 08/04/20 09:02 Dose: 200 mls/hr Documented by: Levothyroxine Sodium (Synthroid -) 200 mcg NR DAILY@0700 [facility] Last Admin: 08/04/20 06:10 Dose: 200 mcg Documented by: Losartan Potassium (Cozaar -) 50 mg GT DAILY [facility] Last Admin: 08/04/20 11:49 Dose: 50 mg Documented by: Mometasone Furoate (Asmanex 110mcg -) 1 puff IH HS [facility] Last Admin: 08/03/20 02:11 Dose: Not Given Documented by: Pantoprazole Sodium (Protonix Iv) 40 mg IVPUSH DAILY [facility] Last Admin: 08/04/20 09:03 Dose: 40 mg Documented by: - Objective Vital Signs: Vital Signs Temperature 97.9 F 08/04/20 08:17 Pulse Rate 59 L 08/04/20 08:17 Respiratory Rate 20 08/04/20 08:17 Blood Pressure 174/89 H 08/04/20 08:17 O2 Sat by Pulse Oximetry (%) 97 08/04/20 08:17 Constitutional: Yes: Calm Eyes: Yes: Conjunctiva Clear HENT: Yes: Atraumatic Neck: Yes: Other (trache) Cardiovascular: Yes: S1, S2 Respiratory: Yes: Other (trache) Gastrointestinal: Yes: Soft Genitourinary: Yes: Incontinence Musculoskeletal: Yes: Muscle Weakness Edema: No Neurological: Yes: Oriented, Pre-Existing Deficit Labs: CBC, BMP 08/04/20 05:40 08/04/20 05:40 Assessment/Plan Current Medications Generic Name Dose Route Start Last Admin Trade Name Freq PRN Reason Stop Dose Admin Albuterol Sulfate 2 puff 08/01/20 08:39 Ventolin Hfa Inhaler - IH Q6H PRN SHORT OF BREATH/WHEEZING Albuterol/Ipratropium 1 amp 08/01/20 12:00 08/04/20 11:34 Duoneb - NEB 1 amp RQID MITZY Administration Amlodipine Besylate 5 mg 08/04/20 10:00 08/04/20 11:51 Norvasc - GT 5 mg DAILY MITZY Administration Aspirin 81 mg 08/02/20 17:51 08/04/20 09:03 Asa - GT 81 mg DAILY MITZY Administration Atorvastatin Calcium 80 mg 08/01/20 22:00 08/03/20 21:35 Lipitor - GT 80 mg HS MITZY Administration Enoxaparin Sodium 40 mg 08/01/20 10:00 08/04/20 09:02 Lovenox - SQ 40 mg DAILY IMTZY Administration Escitalopram Oxalate 10 mg 08/01/20 10:00 08/04/20 09:03 Lexapro Oral Solution - GT 5 ml DAILY MITZY Administration Fluticasone Propionate 1 spray 08/01/20 10:00 08/04/20 09:02 Flonase - NS 1 spray BID MITZY Administration Gabapentin 200 mg 08/01/20 14:00 08/04/20 05:52 Neurontin Oral Liquid - GT 200 ml TID MITZY Administration Piperacillin Sod/Tazobactam 100 mls @ 200 mls/hr 08/01/20 12:45 08/04/20 09:02 Sod 4.5 gm/ Dextrose IVPB 200 mls/hr Q6H-IV MITZY Administration Protocol Levothyroxine Sodium 200 mcg 08/02/20 07:00 08/04/20 06:10 Synthroid - NR 200 mcg DAILY@0700 MITZY Administration Losartan Potassium 50 mg 08/04/20 10:00 08/04/20 11:49 Cozaar - GT 50 mg DAILY MITZY Administration Mometasone Furoate 1 puff 08/01/20 22:00 08/03/20 02:11 Asmanex 110mcg - IH Not Given HS MITZY Pantoprazole Sodium 40 mg 08/01/20 10:00 08/04/20 09:03 Protonix Iv IVPUSH 40 mg DAILY MITZY Administration Impression 1. hyponatremia 2. hx cva 3. trache collar 4. peg tube 5. htn 6. hypothyroidism 7. episodes of altered mental status 8. chronic resp failure Plan - sodium is stable - cont current feeds - pt was likely getting too much free water - cont to monitor lytes - mental status is stable
[2020-08-04] MEDS: MOMETASONE FUROATE 110 MCG/IH INHALER IH SCH ×2 (19:47→22:18)
[2020-08-04] MEDS: ATORVASTATIN CA 80 MG TABLET (FP) GT SCH (22:05)
[2020-08-05] MEDS ORDERED: PIPERACILLIN/TAZOBACTAM 4.5 GM VIAL IVPB ONE ×2 (02:43→08:54)
[2020-08-05] MEDS ORDERED: DEXTROSE 5%-WATER 100 ML IVPB ONE ×2 (02:43→08:54)
[2020-08-05] MEDS: PIPERACILLIN/TAZOB 4.5 GM 4.5 GM in DEXTROSE 5%-WATER 100 ML IVPB SCH ×2 (02:54→08:59)
[2020-08-05] MEDS: GABAPENTIN 250 MG/5 ML ORAL SOLUTION, 470 ML BOTTLE GT SCH ×2 (05:56→14:32)
[2020-08-05] MEDS: LEVOTHYROXINE NA 100 MCG TABLET (FP) NR SCH (06:08)
[2020-08-05] MEDS: ALBUTEROL SO4 2.5/IPRATROPIUM 0.5 INH SOL 3 ML VIAL.NEB. NEB SCH ×2 (08:15→11:49)
[2020-08-05 08:20] LABS: BASO % 1.1 % (0-2.0); EOS % 8.7 % (0-4.5); HEMATOCRIT 26.9 % (35.4-49); HEMOGLOBIN 8.9 GM/dL (11.7-16.9); LYMPH % 5.4 % (8-40); MCH 27.3 pg (25.7-33.7); MCHC 33.3 g/dl (32.0-35.9); MEAN CELL VOLUME 81.9 fl (80-96); MEAN PLT VOLUME 7.2 fl (7.5-11.1); MONO % 10.3 % (3.8-10.2); NEUT % 74.5 % (42.8-82.8); PLATELET COUNT 344 K/MM3 (134-434); RBC 3.28 M/mm3 (4.00-5.60); RDW 15.8 % (11.9-15.9); WHITE BLOOD COUNT 7.1 K/mm3 (4.0-10.0)
[2020-08-05 08:50] LABS: BILIRUBIN,TOTAL 0.4 mg/dL (0.2-1); BLOOD UREA NITROGEN 19.5 mg/dL (7-18); CALCIUM 8.5 mg/dL (8.5-10.1); CREATININE 0.8 mg/dL (0.55-1.3); MAGNESIUM 2.1 mg/dL (1.8-2.4); POTASSIUM 4.1 mmol/L (3.5-5.1)
--- NOTE | 2020-08-05 08:59 | PN ---
Progress Note, Physician Chief Complaint: Remains with right hemiparesis Awake and alert Feels better History of Present Illness: Patient was seen and examined. Chart was reviewed Denies chest pain or SOB - Current Medication List Current Medications: Active Medications Albuterol Sulfate (Ventolin Hfa Inhaler -) 2 puff IH Q6H PRN PRN Reason: SHORT OF BREATH/WHEEZING Albuterol/Ipratropium (Duoneb -) 1 amp NEB RQID [facility] Last Admin: 08/05/20 08:15 Dose: 1 amp Documented by: Amlodipine Besylate (Norvasc -) 5 mg GT DAILY [facility] Last Admin: 08/04/20 11:51 Dose: 5 mg Documented by: Aspirin (Asa -) 81 mg GT DAILY [facility] Last Admin: 08/04/20 09:03 Dose: 81 mg Documented by: Atorvastatin Calcium (Lipitor -) 80 mg GT HS [facility] Last Admin: 08/04/20 22:05 Dose: 80 mg Documented by: Enoxaparin Sodium (Lovenox -) 40 mg SQ DAILY [facility] Last Admin: 08/04/20 09:02 Dose: 40 mg Documented by: Escitalopram Oxalate (Lexapro Oral Solution -) 10 mg GT DAILY [facility] Last Admin: 08/04/20 09:03 Dose: 5 ml Documented by: Fluticasone Propionate (Flonase -) 1 spray NS BID [facility] Last Admin: 08/04/20 22:18 Dose: 1 spray Documented by: Gabapentin (Neurontin Oral Liquid -) 200 mg GT TID [facility] Last Admin: 08/05/20 05:56 Dose: 5 ml Documented by: Piperacillin Sod/Tazobactam (Sod 4.5 gm/ Dextrose) 100 mls @ 200 mls/hr IVPB Q6H-IV MITZY; Protocol Last Admin: 08/05/20 08:59 Dose: 200 mls/hr Documented by: Levothyroxine Sodium (Synthroid -) 200 mcg NR DAILY@0700 [facility] Last Admin: 08/05/20 06:08 Dose: 200 mcg Documented by: Losartan Potassium (Cozaar -) 50 mg GT DAILY [facility] Last Admin: 08/04/20 11:49 Dose: 50 mg Documented by: Mometasone Furoate (Asmanex 110mcg -) 1 puff IH HS [facility] Last Admin: 08/04/20 22:18 Dose: 1 puff Documented by: Pantoprazole Sodium (Protonix Iv) 40 mg IVPUSH DAILY [facility]Y Last Admin: 08/04/20 09:03 Dose: 40 mg Documented by: - Objective Vital Signs: Vital Signs Temperature 98.8 F 08/05/20 05:47 Pulse Rate 58 L 08/05/20 05:47 Respiratory Rate 20 08/05/20 05:47 Blood Pressure 145/66 08/05/20 05:47 O2 Sat by Pulse Oximetry (%) 98 08/05/20 05:47 Neck: Yes: Supple Cardiovascular: Yes: Bradycardia, S1, S2 Respiratory: Yes: Diminished Gastrointestinal: Yes: Normal Bowel Sounds, Soft. No: Tenderness Edema: No Additional Findings/Remarks: - Review of Systems Constitutional: denies: Chills, Fever Cardiovascular: denies: Chest Pain, Palpitations, Shortness of Breath Respiratory: denies: Cough, Orthopnea, PND, SOB, SOB on Exertion, Wheezing Gastrointestinal: denies: Abdominal Pain, Constipation, Diarrhea, Melena, Nausea, Rectal Bleeding, Vomiting Musculoskeletal: denies: Back Pain, Joint Pain Neurological: reports: Confusion. denies: Dizziness, Headache, Seizure, Syncope Labs: CBC, BMP 08/05/20 07:40 08/05/20 07:40 Problem List - Problems (1) Acute metabolic encephalopathy Code(s): G93.41 - METABOLIC ENCEPHALOPATHY (2) CVA (cerebral vascular accident) Code(s): I63.9 - CEREBRAL INFARCTION, UNSPECIFIED (3) Head and neck cancer Code(s): C76.0 - MALIGNANT NEOPLASM OF HEAD, FACE AND NECK (4) Hypertension Code(s): I10 - ESSENTIAL (PRIMARY) HYPERTENSION (5) Hyponatremia Code(s): E87.1 - HYPO-OSMOLALITY AND HYPONATREMIA (6) Hypothyroidism Code(s): E03.9 - HYPOTHYROIDISM, UNSPECIFIED Assessment/Plan 1. 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 HTN 3. Hypercholesterolemia 4. Head/neck cancer post tracheostomy 5. Hyponatremia 6. Anemia 7. Hypothyroidism PLAN: 1. Continue Atorvastatin 80 mg QD 2. ASA 81 mg QD 3. Increase Losartan to 100 mg QD and continue Amlodipine 5 mg QD as tolerated 4. Empiric antibiotics. Continue respiratory care 5. Monitor NA and correct 6. Thyoid replacement therapy 7. PT Further plans are to follow Coleman Peñaloza MD
[2020-08-05] MEDS: amLODIPine BESYLATE 5 MG TABLET (FP) GT SCH ×3 (09:09→12:07)
[2020-08-05] MEDS: ENOXAPARIN NA (PORCINE) 40 MG/0.4 ML DISP.SYRIN SQ SCH (09:11)
[2020-08-05] MEDS: ASPIRIN 81 MG CHEWABLE TABLETS GT SCH (09:11)
[2020-08-05] MEDS: FLUTICASONE PROP 0.05% 16 GM NASAL SPRAY NS SCH (09:12)
[2020-08-05] MEDS: LOSARTAN POTASSIUM 50 MG TABLET GT SCH (09:40)
[2020-08-05] MEDS ORDERED: LOSARTAN POTASSIUM 50 MG TABLET GT SCH (10:31)
[2020-08-05] MEDS: PANTOPRAZOLE SODIUM 40 MG VIAL IVPUSH SCH (10:45)
--- NOTE | 2020-08-05 11:13 | PN ---
Progress Note (short form) - Note Progress Note: PULMONARY Denies shortness of breath. No fevers. Vital Signs Period Temp Pulse Resp BP Sys/[place] Pulse Ox Last 24 Hr 97.6 F-98.8 F 55-70 18-22 80-145/45-75 95-100 Gen: NAD at rest Heart: RRR Lung: decreased breath sounds at the bases Abd: soft, nontender Ext: no edema CBC, BMP 08/05/20 07:40 08/05/20 07:40 Active Medications Albuterol Sulfate (Ventolin Hfa Inhaler -) 2 puff IH Q6H PRN PRN Reason: SHORT OF BREATH/WHEEZING Albuterol/Ipratropium (Duoneb -) 1 amp NEB RQID [facility] Last Admin: 08/05/20 08:15 Dose: 1 amp Documented by: Amlodipine Besylate (Norvasc -) 5 mg GT DAILY [facility] Last Admin: 08/05/20 09:40 Dose: 5 mg Documented by: Aspirin (Asa -) 81 mg GT DAILY [facility] Last Admin: 08/05/20 09:11 Dose: 81 mg Documented by: Atorvastatin Calcium (Lipitor -) 80 mg GT HS [facility] Last Admin: 08/04/20 22:05 Dose: 80 mg Documented by: Enoxaparin Sodium (Lovenox -) 40 mg SQ DAILY [facility] Last Admin: 08/05/20 09:11 Dose: 40 mg Documented by: Escitalopram Oxalate (Lexapro Oral Solution -) 10 mg GT DAILY [facility] Last Admin: 08/04/20 09:03 Dose: 5 ml Documented by: Fluticasone Propionate (Flonase -) 1 spray NS BID [facility] Last Admin: 08/05/20 09:12 Dose: 1 spray Documented by: Gabapentin (Neurontin Oral Liquid -) 200 mg GT TID [facility] Last Admin: 08/05/20 05:56 Dose: 5 ml Documented by: Piperacillin Sod/Tazobactam (Sod 4.5 gm/ Dextrose) 100 mls @ 200 mls/hr IVPB Q6H-IV MITZY; Protocol Last Admin: 08/05/20 08:59 Dose: 200 mls/hr Documented by: Levothyroxine Sodium (Synthroid -) 200 mcg NR DAILY@0700 [facility] Last Admin: 08/05/20 06:08 Dose: 200 mcg Documented by: Losartan Potassium (Cozaar -) 100 mg GT DAILY [facility] Mometasone Furoate (Asmanex 110mcg -) 1 puff IH HS [facility] Last Admin: 08/04/20 22:18 Dose: 1 puff Documented by: Pantoprazole Sodium (Protonix Iv) 40 mg IVPUSH DAILY [facility] Last Admin: 08/04/20 09:03 Dose: 40 mg Documented by: ASSESSMENT AND PLAN: Altered Mental Status improved Acute CVA Pneumonia Hyponatremia Head/Neck Cancer s/p Tracheostomy HTN Hyperlipidemia Hypothyroidism h/o CVA - complete antibiotics - inhaled bronchodilators - O2 to keep SpO2 >90% - DVT prophylaxis
[2020-08-05] MEDS ORDERED: PT OWN MED DRAWER 7, Y5N ONE (12:07)
[2020-08-05] MEDS: ESCITALOPRAM OXALATE 5 MG/5 ML GT SCH (12:09)
--- NOTE | 2020-08-05 12:44 | PN ---
Progress Note, Physician History of Present Illness: Pt seen and examined at bedside. He is awake and alert. We discussed his free water intake. - Current Medication List Current Medications: Active Medications Albuterol Sulfate (Ventolin Hfa Inhaler -) 2 puff IH Q6H PRN PRN Reason: SHORT OF BREATH/WHEEZING Albuterol/Ipratropium (Duoneb -) 1 amp NEB RQID [facility] Last Admin: 08/05/20 11:49 Dose: 1 amp Documented by: Amlodipine Besylate (Norvasc -) 5 mg GT DAILY [facility] Last Admin: 08/05/20 12:07 Dose: Not Given Documented by: Aspirin (Asa -) 81 mg GT DAILY [facility] Last Admin: 08/05/20 09:11 Dose: 81 mg Documented by: Atorvastatin Calcium (Lipitor -) 80 mg GT HS [facility] Last Admin: 08/04/20 22:05 Dose: 80 mg Documented by: Enoxaparin Sodium (Lovenox -) 40 mg SQ DAILY [facility] Last Admin: 08/05/20 09:11 Dose: 40 mg Documented by: Escitalopram Oxalate (Lexapro Oral Solution -) 10 mg GT DAILY [facility] Last Admin: 08/05/20 12:09 Dose: 10 ml Documented by: Fluticasone Propionate (Flonase -) 1 spray NS BID [facility] Last Admin: 08/05/20 09:12 Dose: 1 spray Documented by: Gabapentin (Neurontin Oral Liquid -) 200 mg GT TID [facility] Last Admin: 08/05/20 05:56 Dose: 5 ml Documented by: Piperacillin Sod/Tazobactam (Sod 4.5 gm/ Dextrose) 100 mls @ 200 mls/hr IVPB Q6H-IV MITZY; Protocol Last Admin: 08/05/20 08:59 Dose: 200 mls/hr Documented by: Levothyroxine Sodium (Synthroid -) 200 mcg NR DAILY@0700 [facility] Last Admin: 08/05/20 06:08 Dose: 200 mcg Documented by: Losartan Potassium (Cozaar -) 100 mg GT DAILY [facility] Mometasone Furoate (Asmanex 110mcg -) 1 puff IH HS [facility] Last Admin: 08/04/20 22:18 Dose: 1 puff Documented by: Pantoprazole Sodium (Protonix Iv) 40 mg IVPUSH DAILY [facility] Last Admin: 08/05/20 10:45 Dose: 40 mg Documented by: - Objective Vital Signs: Vital Signs Temperature 97.9 F 08/05/20 09:00 Pulse Rate 59 L 08/05/20 11:05 Respiratory Rate 20 08/05/20 09:00 Blood Pressure 121/65 08/05/20 09:00 O2 Sat by Pulse Oximetry (%) 100 08/05/20 11:05 Constitutional: Yes: Calm Eyes: Yes: Conjunctiva Clear HENT: Yes: Atraumatic Neck: Yes: Other (trache) Cardiovascular: Yes: S1, S2 Respiratory: Yes: Other (trache) Gastrointestinal: Yes: Soft Genitourinary: Yes: Incontinence Musculoskeletal: Yes: Muscle Weakness Edema: No Neurological: Yes: Oriented, Pre-Existing Deficit Labs: CBC, BMP 08/05/20 07:40 08/05/20 07:40 Assessment/Plan Current Medications Generic Name Dose Route Start Last Admin Trade Name Freq PRN Reason Stop Dose Admin Albuterol Sulfate 2 puff 08/01/20 08:39 Ventolin Hfa Inhaler - IH Q6H PRN SHORT OF BREATH/WHEEZING Albuterol/Ipratropium 1 amp 08/01/20 12:00 08/05/20 11:49 Duoneb - NEB 1 amp RQID [facility]ZY Administration Amlodipine Besylate 5 mg 08/04/20 10:00 08/05/20 12:07 Norvasc - GT Not Given DAILY [facility]Y Aspirin 81 mg 08/02/20 17:51 08/05/20 09:11 Asa - GT 81 mg DAILY [facility] Administration Atorvastatin Calcium 80 mg 08/01/20 22:00 08/04/20 22:05 Lipitor - GT 80 mg HS [facility]Y Administration Enoxaparin Sodium 40 mg 08/01/20 10:00 08/05/20 09:11 Lovenox - SQ 40 mg DAILY [facility] Administration Escitalopram Oxalate 10 mg 08/01/20 10:00 08/05/20 12:09 Lexapro Oral Solution - GT 10 ml DAILY [facility] Administration Fluticasone Propionate 1 spray 08/01/20 10:00 08/05/20 09:12 Flonase - NS 1 spray BID [facility] Administration Gabapentin 200 mg 08/01/20 14:00 08/05/20 05:56 Neurontin Oral Liquid - GT 5 ml TID [facility]Y Administration Piperacillin Sod/Tazobactam 100 mls @ 200 mls/hr 10/01/20 12:45 08/05/20 08:59 Sod 4.5 gm/ Dextrose IVPB 200 mls/hr Q6H-IV [facility]Y Administration Protocol Levothyroxine Sodium 200 mcg 08/02/20 07:00 08/05/20 06:08 Synthroid - NR 200 mcg DAILY@0700 [facility] Administration Losartan Potassium 100 mg 08/05/20 10:31 Cozaar - GT DAILY [facility] Mometasone Furoate 1 puff 08/01/20 22:00 08/04/20 22:18 Asmanex 110mcg - IH 1 puff HS [facility] Administration Pantoprazole Sodium 40 mg 08/01/20 10:00 08/05/20 10:45 Protonix Iv IVPUSH 40 mg DAILY [facility] Administration Impression 1. hyponatremia 2. hx cva 3. trache collar 4. peg tube 5. htn 6. hypothyroidism 7. episodes of altered mental status 8. chronic resp failure Plan - cont to monitor sodium - can stop free water with feeds as he does like to drink water - will need to monitor lytes as outpt, this was explained to pt - mental status is stable - pulm input appreciated
--- NOTE | 2020-08-05 12:49 | PN ---
Progress Note, [employer] - Note Progress Note: Selected Entries 08/05/20 08/05/20 08/05/20 02:20 05:47 09:00 Breakfast Temperature 98.8 F 98.8 F 97.9 F Pulse Rate 56 L 58 L 55 L Respiratory 18 20 20 Rate Respiratory Non-Labored Effort Blood Pressure 87 100 88 Mean O2 Sat by Pulse 98 98 97 Oximetry (%) Oxygen Delivery Nasal Cannula Method 08/05/20 08/05/20 08/05/20 09:56 10:00 11:05 Breakfast NPO Temperature Pulse Rate 59 L Respiratory Rate Respiratory Effort Blood Pressure Mean O2 Sat by Pulse 97 100 Oximetry (%) Oxygen Delivery Nasal Cannula Method Laboratory Tests 08/05/20 07:40 WBC 7.1 npo tf pt in good spirits, pending d/c today. he is in agreement with [facility] as out pt for possible initiation of po trials.
[2020-08-05 13:43] VITALS: BP 114/60; PULSE 57; TEMP 98.5
--- NOTE | 2020-08-05 14:26 | PN ---
Progress Note (short form) - Note Progress Note: Vascular Surgery Carotid doppler images reviewed. All velocities are within normal limits. At best 50% stenosis bl ICA. No need for any intervention. Medical management. Dominic Bills DO
--- NOTE | 2020-08-05 16:04 | DS ---
Physical Exam: SUBJECTIVE: Patient seen and examined OBJECTIVE: Vital Signs Period Temp Pulse Resp BP Sys/Calhoun Pulse Ox Last 24 Hr 97.6 F-98.8 F 55-70 18-20 80-145/45-75 95-100 PHYSICAL EXAM GENERAL: The patient is awake, alert, and fully oriented, in no acute distress. HEAD: Normal with no signs of trauma. EYES: PERRL, extraocular movements intact, sclera anicteric, conjunctiva clear. ENT: Ears normal, nares patent, oropharynx clear without exudates, moist mucous membranes. NECK: Trachea midline, full range of motion, supple. LUNGS: Breath sounds equal, clear to auscultation bilaterally, no wheezes, no crackles, no accessory muscle use. HEART: Regular rate and rhythm, S1, S2 without murmur, rub or gallop. ABDOMEN: Soft, nontender, nondistended, normoactive bowel sounds, no guarding, no rebound, no hepatosplenomegaly, no masses. EXTREMITIES: 2+ pulses, warm, well-perfused, no edema. NEUROLOGICAL: Cranial nerves II through XII grossly intact. Normal speech, gait not observed. PSYCH: Normal mood, normal affect. SKIN: Warm, dry, normal turgor, no rashes or lesions noted. LABS Laboratory Results - last 24 hr 08/05/20 08/05/20 07:40 07:40 WBC 7.1 RBC 3.28 L Hgb 8.9 L Hct 26.9 L MCV 81.9 MCH 27.3 MCHC 33.3 RDW 15.8 Plt Count 344 MPV 7.2 L Absolute Neuts (auto) 5.3 Neutrophils % 74.5 Lymphocytes % 5.4 L D Monocytes % 10.3 H Eosinophils % 8.7 H Basophils % 1.1 Nucleated RBC % 0 Sodium 134 L Potassium 4.1 Chloride 98 Carbon Dioxide 29 Anion Gap 6 L BUN 19.5 H Creatinine 0.8 Est GFR (CKD-EPI)AfAm 99.87 Est GFR (CKD-EPI)NonAf 86.17 Random Glucose 122 H Calcium 8.5 Magnesium 2.1 Total Bilirubin 0.4 AST 20 ALT 11 L Alkaline Phosphatase 57 Total Protein 7.0 Albumin 2.0 L HOSPITAL COURSE: Date of Admission:07/27/20 Date of Discharge: 08/05/20 Discharge Summary Problems reviewed: Yes Reason For Visit: DIFFICULTY BREATHING/ALTERED MENTAL STATUS Current Active Problems Acute metabolic encephalopathy (Acute) CVA (cerebral vascular accident) (Acute) CVA, old, hemiparesis (Acute) DVT prophylaxis (Acute) Head and neck cancer (Acute) Hypertension (Acute) Hyponatremia (Acute) Hypothyroidism (Acute) Hypoxia (Acute) Pneumonia (Acute) Prophylactic measure (Acute) Condition: Improved - Instructions Diet, Activity, Other Instructions: Mr Giles: You were admitted to [facility] and found to have a new left parietal stroke. During your hospital stay you were evaluated by the applier, pulmonoloigst and also neurologist. You were treated with Zosyn IV for a pneumonia and you have completed 6 days of the IV antibiotics. You will be sent home on oral antibiotics called Levaquin 500mg that you will take once per day for 4 more days. You should complete the Levaquin 500mg on 08/09/2020. You can continue the Rapaflo for your prostate. Continue all the medications as outlined in your discharge instructions Please follow up with your primary care doctor and with the neurologist for a post hospital follow up Dr. Zheng is the renal physician who evaluated you here for hyponatremia (low sodium in your blood). Please call his office for an appointment so that you can evaluate you outpatient. Please do not take anything by mouth until you are cleared by the ENT doctor. You will need a modified barium swallow test. Thank you for allowing us to care for you. Referrals: Quintin Maier [Primary Care Provider] - Alana Zheng MD [Staff Physician] - Disposition: HOME - Home Medications Comprehensive Discharge Medication List: Ambulatory Orders Albuterol Sulfate Inhaler - [Ventolin HFA Inhaler -] 2 puff IH Q6H 07/28/20 Amlodipine Besylate 5 mg GT DAILY 07/28/20 Atorvastatin Ca [Lipitor] 40 mg GT HS 07/28/20 Escitalopram Oxalate [Lexapro -] 10 mg GT DAILY 07/28/20 Fluticasone Furoate [Arnuity Ellipta] 1 spray IH BID 07/28/20 Gabapentin [Neurontin -] 200 mg GT TID 07/28/20 Levothyroxine Sodium [Synthroid] 200 mcg GT DAILY 07/28/20 Losartan Potassium 100 mg GT DAILY 07/28/20 Omeprazole 20 mg GT DAILY 07/28/20 Silodosin [Rapaflo] 8 mg GT DAILY 07/28/20 Aspirin [ASA -] 81 mg GT DAILY tab.chew 08/05/20 Fluticasone Prop 0.05% Nasal [Flonase -] 1 spray NS BID spray 08/05/20 Levofloxacin [Levaquin] 500 mg PO DAILY #4 tablet 08/05/20 Losartan Potassium [Cozaar -] 100 mg GT DAILY tablet 08/05/20 Mometasone Furoate [Asmanex 110Mcg -] 1 puff IH HS inhaler 08/05/20 Problem List - Problems (1) Acute metabolic encephalopathy Code(s): G93.41 - METABOLIC ENCEPHALOPATHY (2) Head and neck cancer Code(s): C76.0 - MALIGNANT NEOPLASM OF HEAD, FACE AND NECK (3) Hypertension Code(s): I10 - ESSENTIAL (PRIMARY) HYPERTENSION (4) CVA (cerebral vascular accident) Code(s): I63.9 - CEREBRAL INFARCTION, UNSPECIFIED (5) CVA, old, hemiparesis Code(s): I69.359 - HEMIPLGA FOLLOWING CEREBRAL INFARCTION AFFECTING UNSP SIDE (6) Hyponatremia Code(s): E87.1 - HYPO-OSMOLALITY AND HYPONATREMIA (7) Pneumonia Code(s): J18.9 - PNEUMONIA, UNSPECIFIED ORGANISM (8) Hypothyroidism Code(s): E03.9 - HYPOTHYROIDISM, UNSPECIFIED (9) Prophylactic measure Code(s): Z29.9 - ENCOUNTER FOR PROPHYLACTIC MEASURES, UNSPECIFIED (10) DVT prophylaxis Code(s): Z29.9 - ENCOUNTER FOR PROPHYLACTIC MEASURES, UNSPECIFIED - Discharge Referral Referred to [facility].: No
--- NOTE | 2020-08-05 16:23 | PN ---
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 He came to hospital or episodes of unreponsiveness and hypoxic, he wa son regular floor and he was brought to icu for furhter observation . Patient has residual right sided hemiparesis . He has mri of brain done and also have hyponatremia during hospitalization. There is no fever , nad he was also started on abx empirically for penumonia. -- no new symptoms, Patient is feeling better and going back home NEUROLOGICAL EXAMINATION Alert and oriented x 3, feeling good, afebrile vss neck is supple afebrile vss eomi, pupils reactive no face asymmetry right arm weaknes supto grade 2 and moving left uper extremity and both lower extremity mri ofbrain showed left parietal acute stroke eeg is normal Assessment/Plan 75 year old male with past medical history of head/neck cancer s/p tracheostomy, HTN, 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 left pareital acute ischemic lesion, eeg is normal. - recurrent episode of unresponsiveness and becoming obtunded , unlikley to seizure Plan-- continue aspirin and statin -follow up outpatient - continue supportive care Thanking you so much Christy Prince MD
--- NOTE | 2020-08-08 12:25 | PN ---
Teaching Attending Note Name of Resident: Kenyetta Foster ATTENDING PHYSICIAN STATEMENT I saw and evaluated the patient. I reviewed the resident's note and discussed the case with the resident. I agree with the resident's findings and plan as documented. SUBJECTIVE: Patient seen and examined at bedside, L parietal CVA on MRI, stable for downgrade to floors. VSS. OBJECTIVE: Vital Signs Period Temp Pulse Resp BP Sys/Calhoun Pulse Ox Last 24 Hr 97.5 F-98.8 F 56-92 15-25 99-180/52-93 94-100 Gen: NAD at rest Heart: RRR Lung: decreased breath sounds at the bases Abd: soft, nontender Ext: no edema Active Medications Albuterol Sulfate (Ventolin Hfa Inhaler -) 2 puff IH Q6H PRN PRN Reason: SHORT OF BREATH/WHEEZING Albuterol/Ipratropium (Duoneb -) 1 amp NEB RQID [facility] Last Admin: 07/31/20 08:00 Dose: 1 amp Documented by: Aspirin (Asa -) 81 mg PO DAILY [facility] Last Admin: 07/31/20 09:23 Dose: 81 mg Documented by: Atorvastatin Calcium (Lipitor -) 80 mg GT HS [facility] Last Admin: 07/30/20 21:09 Dose: 80 mg Documented by: Chlorhexidine Gluconate (Hibiclens For Decolonization -) 1 applic TP HS [facility] Last Admin: 07/30/20 21:11 Dose: 1 applic Documented by: Enoxaparin Sodium (Lovenox -) 40 mg SQ DAILY [facility] Last Admin: 07/31/20 10:08 Dose: 40 mg Documented by: Escitalopram Oxalate (Lexapro Oral Solution -) 10 mg GT DAILY [facility] Last Admin: 07/31/20 10:05 Dose: 10 mg Documented by: Fluticasone Propionate (Flonase -) 1 spray NS BID [facility] Last Admin: 07/31/20 10:06 Dose: 1 spray Documented by: Gabapentin (Neurontin Oral Liquid -) 200 mg GT TID [facility] Last Admin: 07/31/20 06:33 Dose: 200 mg Documented by: Ceftriaxone Sodium 1 gm/ (Dextrose) 50 mls @ 100 mls/hr IVPB DAILY [facility] Last Admin: 07/31/20 10:16 Dose: 100 mls/hr Documented by: Levothyroxine Sodium (Synthroid -) 200 mcg NR DAILY@0700 [facility] Last Admin: 07/31/20 06:52 Dose: 200 mcg Documented by: Mometasone Furoate (Asmanex 110mcg -) 1 puff IH HS [facility] Last Admin: 07/31/20 00:12 Dose: Not Given Documented by: Mupirocin (Bactroban Ointment (For Decolonization) -) 1 applic NS BID [facility] Stop: 08/04/20 21:59 Last Admin: 07/31/20 09:24 Dose: 1 applic Documented by: Pantoprazole Sodium (Protonix Iv) 40 mg IVPUSH DAILY [facility] Last Admin: 07/31/20 09:44 Dose: 40 mg Documented by: ASSESSMENT AND PLAN: 75 M Acute CVA Pneumonia Altered Mental Status improved Hyponatremia Head/Neck Cancer s/p Tracheostomy HTN Hyperlipidemia Hypothyroidism h/o CVA Plan: Cont. abx for PNA Follow cx, echo, doppler studies Aspiration precautions, HOB elevation supplement PPI Monitor on floors DVT ppx: Heparin SC
== END 2020-08-05 16:35 | disposition home or self-care (01) | DRG 177 ==
LOC: JER 11:44 → JERBED 15:10 → J4S 07-28 11:19 → J5S 07-29 12:47 → JICU 07-30 08:52 → J4W 08-01 17:55
PROVIDERS: ADMIT Student in an Organized Health Care Education/Training Program; ATTEND Nurse Practitioner Family
DX: J15.1 Pneumonia due to Pseudomonas (principal); G93.41 Metabolic encephalopathy; I63.9 Cerebral infarction, unspecified; E87.1 Hypo-osmolality and hyponatremia; I69.351 Hemiplegia and hemiparesis following cerebral infarction affecting right dominant side; J98.11 Atelectasis; F05 Delirium due to known physiological condition; E87.3 Alkalosis; J96.11 Chronic respiratory failure with hypoxia; R29.708 NIHSS score 8; Z93.0 Tracheostomy status; D64.9 Anemia, unspecified; R41.82 Altered mental status, unspecified; I10 Essential (primary) hypertension; E03.9 Hypothyroidism, unspecified; E78.5 Hyperlipidemia, unspecified
CPT/HCPCS: 36415; 36600; 70450-TC; 70551-TC; 71045-TC-FY; 80048; 80053; 80061; 81003; 82436; 82550; 82565; 82728; 82803; 82962; 83540; 83550; 83605; 83721; 83735; 83930; 83935; 84100; 84133; 84146; 84300; 84443; 84484; 85025; 85027; 85045; 87040; 87070; 87077; 87186; 87205; 93005; 93010; 93306-TC; 93880-TC; 94640; 94761; 95816; 97116-GP; 97162-GP; 99285-25; U0003